=== PATIENT | male | born 1955 | race Caucasian/White ===

== ENCOUNTER 2023-03-22 08:15 | Outpatient (RCR) | payer MEDICARE, BC, SELFPAY | END 2023-07-20 23:59 | disposition home or self-care (01) | PROVIDERS: PCP Family Medicine; Visit Provider Family Medicine | DX: M48.061 Spinal stenosis, lumbar region without neurogenic claudication (principal); R26.9 Unspecified abnormalities of gait and mobility; G47.9 Sleep disorder, unspecified; Z74.09 Other reduced mobility; M62.81 Muscle weakness (generalized); Z51.89 Encounter for other specified aftercare | CPT/HCPCS: 97032; 97110; 97162 ==

== ENCOUNTER 2023-04-16 09:56 | Outpatient (CLI) | payer MEDICARE, BC, SELFPAY | END 2023-04-16 09:57 | disposition home or self-care (01) | PROVIDERS: PCP Family Medicine; Visit Provider Family Medicine | DX: M54.16 Radiculopathy, lumbar region (principal); M51.36 Other intervertebral disc degeneration, lumbar region | CPT/HCPCS: 62323; J0702; Q9966 ==

== ENCOUNTER 2023-05-26 07:27 | Emergency (ER) | payer MEDICARE, BC, SELFPAY ==
[2023-05-26] VITALS (32 sets, daily range): BP systolic 122–161; BP diastolic 74–97; PULSE 96–112; RESP 28; TEMP 36.7; O2SAT 88–98; BMI 31.1
[2023-05-26] MEDS: fentaNYL 100 MCG/2 ML inj 50 MCG IVP (08:30)
--- NOTE | 2023-05-26 08:32 | ED.NURSE ---
0825 #20 SL started L AC, blood drawn off iv. 50 mcg fentanyl iv given.
[2023-05-26] MEDS: ONDANSETRON 2 MG/ML inj 4 MG IVP (08:40)
--- NOTE | 2023-05-26 08:46 | CRLHL7_ITS ---
For Patients: As a result of the Century Cures Act, medical imaging exams and procedure reports are released immediately into your electronic medical record. You may view this report before your referring provider. If you have questions, please contact your health care provider. INDICATION: Shortness of breath. Left chest pain. FINDINGS: PA and lateral chest x-rays show a normal cardiac silhouette. The lungs are somewhat hypoventilated and show mild interstitial prominence. Mild bibasilar atelectasis. Probable small left-sided pleural effusion. No pneumothorax. Stabilization hardware in the lower cervical spine. IMPRESSION: 1. Mild interstitial prominence may represent pulmonary edema. 2. Probable small left-sided pleural effusion. Dictated by Quincy Rivera MD @ 05/26/2023 9:15:36 AM Dictated by: Quincy Rivera MD @ 05/26/2023 09:15:42 (Electronically Signed)
[2023-05-26 08:54] LABS: PCR FLU A Negative PCR FLU A (Negative); PCR FLU B Negative PCR FLU B (Negative); PCR RSV Negative PCR RSV (Negative)
[2023-05-26 08:55] LABS: SARS PCR* Negative SARS-CoV-2 (Negative)
--- NOTE | 2023-05-26 08:55 | ED.GENADULT ---
HPI - General Adult General Date Seen: 05/26/23 Chief complaint: Shortness of Breath/Dyspnea Stated complaint: difficulty breathing Time Seen by Provider: 05/26/23 08:01 History of Present Illness HPI narrative: This is a 67-year-old gentleman who presents to the ER today for shortness of breath and flare of his chronic back pain. He has a past medical history including bilateral ulnar nerve neuropathy, low back pain apparently due to lumbar disc compression. He has had trouble with his back pain for the past several months and has been were thing with an orthopedic spine surgeon. He has had what sounds like an epidural steroid injection which was ineffective so he has an upcoming appointment it sounds like they are going down the road to operative intervention. He has been managing his back pain over the past several months with meds at home. He does not have any recent fall or any specific injury that would make his back pleura. It has been flaring for the past few days. The pain is mostly in his lumbar spine. Does not radiate down his legs. No disturbance of bowel or bladder. His back hurts worse when he lays in bed so he has been sleeping sitting up in chair recently. He does not have any previous history of heart or lung disease. No history of asthma or COPD. He has never been a smoker. He notes that for the past couple of days he has been mildly short of breath and having dyspnea on exertion. He notes that normally he would be able to walk a mi or 2 without getting short of breath (but is back with her) but lately he thinks he may be able to walk a block or 2. Overnight his breathing got worse. He now also has some right anterolateral chest pain. He is not really coughing. No fever. No swelling in his legs. No palpitations. No nausea. No pain in the back of his chest. No recent travel. No peripheral edema. He is not on any anticoagulants. Related Data Home Medications Medication Instructions Recorded Confirmed atorvastatin 40 mg tablet 40 mg PO QPM 01/08/23 05/17/23 gabapentin 300 mg capsule 300 mg PO 3XD 01/08/23 05/17/23 insulin glargine 100 unit/mL (3 30 unit subcut QPM 01/08/23 05/17/23 mL) subcutaneous pen (Lantus Solostar U-100 Insulin) insulin lispro 100 unit/mL 6 - 8 unit subcut 3XD 01/08/23 05/17/23 subcutaneous pen metformin 500 mg tablet,extended 1,000 mg PO BID 01/08/23 05/17/23 release 24 hr semaglutide 0.25 mg or 0.5 mg (2 0.25 mg subcut 01/08/23 05/17/23 mg/3 mL) subcutaneous pen injector (Ozempic) oxycodone 5 mg tablet mg PO 05/17/23 05/17/23 Previous Rx's Medication Instructions Recorded cyclobenzaprine 5 mg tablet 5 - 10 mg (1 - 2 x 5 mg) PO TID 01/08/23 PRN muscle spasm #20 tabs tramadol 50 mg tablet 50 mg PO Q8H PRN pain #10 tabs 01/08/23 Allergies Allergy/AdvReac Type Severity Reaction Status Date / Time acetaminophen Allergy Mild Verified 05/17/23 09:34 [From Darvocet-N] oxycodone [From Percocet] Allergy Mild Verified 05/17/23 09:34 propoxyphene Allergy Mild Verified 05/17/23 09:34 [From Darvocet-N] bupropion [From Wellbutrin] Allergy Verified 05/17/23 09:34 [facility] Surgical History (Updated 05/17/23 @ 09:51 by Rosetta Stovall) Amputated toe of left foot ?S98.132A - Complete traumatic amputation of one left lesser toe, initial encounter (ICD-10) Cervical vertebral fusion ?M43.22 - Fusion of spine, cervical region (ICD-10) S/P right rotator cuff repair ?Z98.890 - Other specified postprocedural states (ICD-10) History of cholecystectomy ?Z90.49 - Acquired absence of other specified parts of digestive tract (ICD-10) History of appendectomy ?Z90.49 - Acquired absence of other specified parts of digestive tract (ICD-10) Gastric bypass status for obesity ?Z98.84 - Bariatric surgery status (ICD-10) Social History Smoking Status: Never smoker Do you use any of these nicotine containing products: None Second hand tobacco smoke exposure: No How often do you have a drink containing alcohol: 2-3 times a week How many standard drinks containing alcohol do you have on a typical day: 1 or 2 How often do you have six or more drinks on one occasion: Never AUDIT-C Alcohol total score: 3 Non-prescribed substance use: denies use Exam Narrative: Exam Narrative: Constitutional: Appears well-developed and well-nourished. Alert. Conversant. Non toxic. HENT: Head: Atraumatic. Nose: Nose normal. Mouth/Throat: Oral mucosa is clear and moist. no trismus. Pharynx normal. Tonsils symmetric. No tonsillar enlargement, erythema, or exudate. Eyes: Conjunctivae normal. EOM normal. Pupils equal, round, and reactive to light. No scleral icterus. Neck: Normal range of motion. Neck supple. No tracheal deviation present. Cardiovascular: Tachycardic-108 on the monitor (patient says his normal resting heart rate is around 100 beats per minute), regular rhythm. No gallop. No friction rub. No murmur heard. Symmetric radial and PT artery pulses Pulmonary/Chest: Effort normal. No stridor. No respiratory distress. Initially breathing fairly rapidly and shallowly but with coaching he is able to breathe more regularly. Nurses mention in the triage note that he was wheezy but once I calm his breathing, To my auscultation he has No wheezes. No rales. No rhonchi . No tenderness. Abdominal: Soft. Bowel sounds normal. No distension. No mass. No tenderness. No rebound. No guarding. Musculoskeletal: Endorses low back pain but no point tenderness or midline step-off. No bruising. No erythema. RUE: Normal range of motion. No tenderness. No deformity LUE: Normal range of motion. No tenderness. No deformity RLE: Normal range of motion. No edema. No tenderness. No deformity LLE: Normal range of motion. No edema. No tenderness. No deformity Neurological: Alert and oriented to person, place, and time. Normal strength. CN II-VII intact. No sensory deficit. GCS eye subscore is 4. GCS verbal subscore is 5. GCS motor subscore is 6. Normal coordination Skin: Skin is warm and dry. No rash noted. No pallor. Normal capillary refill. Psychiatric: Normal mood. Normal affect. Const: Vital Signs, click to edit/add: Vital Signs - 24 hr 05/26/23 07:43 05/26/23 08:04 05/26/23 08:05 Temperature 98.1 F Pulse Rate 108 H 108 H Pulse Rate [Pulse Oximeter] 112 H Respiratory Rate 28 H Blood Pressure 148/84 H Blood Pressure [Ri ght Upper Arm] 147/87 H Pulse Oximetry 90 92 95 Oxygen Delivery Me thod Room Air 05/26/23 08:30 05/26/23 08:32 05/26/23 08:33 Temperature Pulse Rate 106 H 107 H 107 H Pulse Rate [Pulse Oximeter] Respiratory Rate Blood Pressure 146/89 H Blood Pressure [Ri ght Upper Arm] Pulse Oximetry 93 90 90 Oxygen Delivery Me thod 05/26/23 09:00 05/26/23 09:02 05/26/23 09:03 Temperature Pulse Rate 109 H 108 H 107 H Pulse Rate [Pulse Oximeter] Respiratory Rate Blood Pressure 136/84 Blood Pressure [Ri ght Upper Arm] Pulse Oximetry 91 92 92 Oxygen Delivery Me thod 05/26/23 09:30 05/26/23 10:00 05/26/23 10:02 Temperature Pulse Rate 106 H 108 H 107 H Pulse Rate [Pulse Oximeter] Respiratory Rate Blood Pressure 156/95 H Blood Pressure [Ri ght Upper Arm] Pulse Oximetry 92 89 88 Oxygen Delivery Me thod 05/26/23 10:11 05/26/23 10:13 05/26/23 10:20 Temperature Pulse Rate 108 H 108 H 107 H Pulse Rate [Pulse Oximeter] Respiratory Rate Blood Pressure 161/97 H 144/91 H 130/74 Blood Pressure [Ri ght Upper Arm] Pulse Oximetry 93 92 89 Oxygen Delivery Me thod 05/26/23 10:21 05/26/23 10:46 05/26/23 11:00 Temperature Pulse Rate 107 H 102 H 99 Pulse Rate [Pulse Oximeter] Respiratory Rate Blood Pressure Blood Pressure [Ri ght Upper Arm] Pulse Oximetry 90 95 96 Oxygen Delivery Me thod 05/26/23 11:01 05/26/23 11:02 05/26/23 11:30 Temperature Pulse Rate 100 100 96 Pulse Rate [Pulse Oximeter] Respiratory Rate Blood Pressure 122/80 Blood Pressure [Ri ght Upper Arm] Pulse Oximetry 95 96 98 Oxygen Delivery Me thod 05/26/23 11:32 05/26/23 12:00 05/26/23 12:02 Temperature Pulse Rate 96 98 98 Pulse Rate [Pulse Oximeter] Respiratory Rate Blood Pressure 133/86 132/87 Blood Pressure [Ri ght Upper Arm] Pulse Oximetry 97 96 97 Oxygen Delivery Me thod Course Vital Signs Vital signs: Initial Vital Signs Temperature 98.1 F 05/26/23 07:43 Temperature Source Temporal Artery Scan 05/26/23 07:43 Pulse Rate 112 H 05/26/23 07:43 Respiratory Rate 28 H 05/26/23 07:43 Blood Pressure 147/87 H 05/26/23 07:43 Blood Pressure Mean 107 H 05/26/23 07:43 Blood Pressure Position Supine 05/26/23 07:43 Pulse Oximetry 90 05/26/23 07:43 Oxygen Delivery Method Room Air 05/26/23 07:43 Vital Signs Temperature 98.1 F 05/26/23 07:43 Pulse Rate 112 H 05/26/23 07:43 Respiratory Rate 28 H 05/26/23 07:43 Blood Pressure 147/87 H 05/26/23 07:43 Pulse Oximetry 90 05/26/23 07:43 Oxygen Delivery Method Room Air 05/26/23 07:43 Temperature 98.1 F 05/26/23 07:43 Pulse Rate 98 05/26/23 12:02 Respiratory Rate 28 H 05/26/23 07:43 Blood Pressure 132/87 05/26/23 12:02 Pulse Oximetry 97 05/26/23 12:02 Oxygen Delivery Method Room Air 05/26/23 07:43 Medical Decision Making MDM Narrative Medical decision making narrative: This patient presents to the ER today for evaluation of shortness of breath for the past several days, with dyspnea on exertion, now worsening shortness breath over night and also developing anterior chest pain overnight.. Differential was broad. He does have some ongoing trouble with low back pain. This has been flaring for the past few days but is not clearly contributing to shortness of breath No evidence of palpitations, syncope or other cardiac dysrhythmia. History could be consistent with CHF although he has no history of coronary artery disease, structural heart disease, valvular disease, or CHF. No peripheral edema. BNP is elevated at 987 a chest x-ray does show mild pulmonary edema and small pleural effusions which could be CHF. Blood pressure is essentially normal. We considered possible ACS. No classic history of exertional chest pain suggest clear unstable angina. He was having minimal/equivocal pain at the time he presented. Initial EKG showed nonspecific changes with T-wave inversions in the inferior leads but no elevation. Serial EKGs here in the ER showed no definite evolving changes. He also has a right bundle-branch block of unknown chronicity. Troponin is abnormal at 0.12. Unclear if this represents true NSTEMI or if it represents cardiac strain from CHF. Aspirin administered. Second troponin obtained 2 hours after the 1st reveals stability at 0.12. This is stable troponin would suggest this is probably due to cardiac strain from CHF rather than acute ACS. Will hold off on heparin for now. He did have recurrent episode of chest pain while here in the ER which resolved after 2 nitro. EKGs show no definite involving changes. Serial troponins are abnormal but not rising. CT scan of his aorta does show coronary artery calcifications. While the patient was here in the ER he did develop a recurrent episode of chest discomfort and pain through to his thoracic back. This led to consideration for aortic dissection. CT scan confirms no dissection. Does confirm pulmonary edema and pleural effusions consistent with CHF. Chest x-ray shows no evidence for pneumonia, pneumothorax, rib fracture, cardiomegaly. We considered PE for this patient. Screening D-dimer is normal. No wheezing or bronchospasm to suggest COPD/asthma. No signs of chest wall cellulitis, shingles, injury. Discussed with Cardiology, Dr. Lewis from [facility]. He agrees that the patient would benefit from transfer to their facility for workup for presumed new onset CHF. Lab Data Labs: Lab Results 05/26/23 05/26/23 05/26/23 Range/Units 07:49 08:25 09:15 WBC 5.08 (4.50-11.00) K/uL RBC 4.31 (4.30-5.90) m/uL Hgb 10.3 L (13.5-17.5) gm/dL Hct 34.8 L (37.0-53.0) % MCV 81 (80-100) fL MCH 24 L (26-34) pg MCHC 30 L (32-36) gm/dL RDW Coeff of Lou 13.1 (11.5-15.5) % Plt Count 176 (140-440) K/uL Neut % (Auto) 69.0 (42.0-72.0) % Lymph % (Auto) 20.9 (20-44) % [place] % (Auto) 6.9 (0.0-11.0) % Eos % (Auto) 2.2 (0.0-7.0) % Baso % (Auto) 0.2 (0.0-3.0) % Neut # (Auto) 3.51 (1.7-7.0) K/uL Lymph # (Auto) 1.06 (0.90-2.90) K/uL [place] # (Auto) 0.40 (0.00-0.90) K/UL Eos # (Auto) 0.11 (0.00-0.50) K/uL Baso # (Auto) 0.01 (0.00-0.30) K/uL Abs Immat Gran (auto) 0.04 (0.00-0.30) K/uL Imm/Tot Granulo (auto) 0.8 % D-Dimer Quant (PE/DVT) 0.33 (0.00-0.50) ug/ml Sodium 138 (135-149) mmol/L Potassium 3.9 (3.6-5.1) mmol/L Chloride 104 (96-114) mmol/L Carbon Dioxide 23 (20-32) mmol/L Anion Gap 11 (7-15) mEq/L BUN 27 (7-30) mg/dL Creatinine 1.2 (0.5-1.5) mg/dL Estimated Creat Clear 70.40 Estimated GFR 67 ml/min Glucose 196 H (60-115) mg/dL Lactate 0.9 (0.5-1.9) mmol/L Calcium 8.2 L (8.4-10.6) mg/dL Troponin I 0.12 H* (0.01-0.04) ng/mL NT-Pro-B Natriuret Pep 987 pg/mL SARS-CoV-2 (PCR) Negative SARS-CoV-2 (Negative) Influenza Type A (PCR) Negative PCR FLU A (Negative) Influenza Type B (PCR) Negative PCR FLU B (Negative) RSV (PCR) Negative PCR RSV (Negative) 05/26/23 Range/Units 10:47 WBC (4.50-11.00) K/uL RBC (4.30-5.90) m/uL Hgb (13.5-17.5) gm/dL Hct (37.0-53.0) % MCV (80-100) fL MCH (26-34) pg MCHC (32-36) gm/dL RDW Coeff of Lou (11.5-15.5) % Plt Count (140-440) K/uL Neut % (Auto) (42.0-72.0) % Lymph % (Auto) (20-44) % [place] % (Auto) (0.0-11.0) % Eos % (Auto) (0.0-7.0) % Baso % (Auto) (0.0-3.0) % Neut # (Auto) (1.7-7.0) K/uL Lymph # (Auto) (0.90-2.90) K/uL [place] # (Auto) (0.00-0.90) K/UL Eos # (Auto) (0.00-0.50) K/uL Baso # (Auto) (0.00-0.30) K/uL Abs Immat Gran (auto) (0.00-0.30) K/uL Imm/Tot Granulo (auto) % D-Dimer Quant (PE/DVT) (0.00-0.50) ug/ml Sodium (135-149) mmol/L Potassium (3.6-5.1) mmol/L Chloride (96-114) mmol/L Carbon Dioxide (20-32) mmol/L Anion Gap (7-15) mEq/L BUN (7-30) mg/dL Creatinine (0.5-1.5) mg/dL Estimated Creat Clear Estimated GFR ml/min Glucose (60-115) mg/dL Lactate (0.5-1.9) mmol/L Calcium (8.4-10.6) mg/dL Troponin I 0.12 H* (0.01-0.04) ng/mL NT-Pro-B Natriuret Pep pg/mL SARS-CoV-2 (PCR) (Negative) Influenza Type A (PCR) (Negative) Influenza Type B (PCR) (Negative) RSV (PCR) (Negative) Imaging Data Chest x-ray: Attestation: I have reviewed the pertinent imaging results. Radiologist's impression: IMPRESSION: 1. Mild interstitial prominence may represent pulmonary edema. 2. Probable small left-sided pleural effusion. CT Chest/Ab/Pelvis: Attestation: I have reviewed the pertinent imaging results. Radiologist's impression: IMPRESSION: 1. No intramural hematoma in the thoracic aorta, and no aortic aneurysm or dissection. 2. Small to moderate-sized bilateral pleural effusions. 3. Interlobular septal thickening, and patchy perihilar ground-glass opacity nonspecific but most likely due to pulmonary edema. Differential includes atypical infection but given the associated pleural effusions less likely. 4. Severe coronary artery calcification. ECG Data Attestation: I personally reviewed and interpreted this ECG as follows: Interpretation: Sinus tach, rate 108. DC 232. First-degree AV block QRS axis normal axis. Right bundle-branch block ST segment/T wave: Is T-wave inversions in leads 2, 3, AVF. No definite ST segment elevation. QT is 472. Calculated QTC is 632 No old EKGs are available for comparison EKG #2.-9:45 a.m. Sinus tachycardia. Rate 105. DC interval 192. QRS axis is normal. Right bundle-branch block. No pathologic Q-waves. ST segment/T-wave: No ST segment elevation or depression. T-wave inversion lead 2, 3, AVF, V6. No definite change from 1st EKG this morning QT: 472 EKG #3 1015AM. had recurrent chest pain, now upper back pain Sinus tach 107 DC 192 RBBB. normal axis T wave inversions II, III aVF with no definite change from number 2 Discharge Plan Discharge Prescriptions: No Action oxycodone 5 mg tablet PO atorvastatin 40 mg tablet 40 mg PO QPM gabapentin 300 mg capsule 300 mg PO 3XD metformin 500 mg tablet extended release 24 hr 1,000 mg PO BID insulin lispro 100 unit/mL insulin pen 6 - 8 unit subcut 3XD insulin glargine [Lantus Solostar U-100 Insulin] 100 unit/mL (3 mL) insulin pen 30 unit subcut QPM Ozempic 0.25 mg or 0.5 mg (2 mg/3 mL) pen injector 0.25 mg subcut cyclobenzaprine 5 mg tablet 5 - 10 mg PO TID PRN (Reason: muscle spasm) Qty: 20 0RF tramadol 50 mg tablet 50 mg PO Q8H PRN (Reason: pain) Qty: 10 0RF Follow Up/Referrals: Hegland,Lakesha I, MD [Primary Care Provider] -
[2023-05-26 09:03] LABS: Basophils Absolute Auto 0.01 K/uL (0.00-0.30); Basophils Percent Auto 0.2 % (0.0-3.0); Eosinophils Absolute Auto 0.11 K/uL (0.00-0.50); Eosinophils Percent Auto 2.2 % (0.0-7.0); Hematocrit 34.8 % (37.0-53.0); Hemoglobin* 10.3 gm/dL (13.5-17.5); Immature Granulocytes Abs Auto 0.04 K/uL (0.00-0.30); Immature Granulocytes Pct Auto 0.8 %; Lymphocytes Absolute Auto 1.06 K/uL (0.90-2.90); Lymphocytes Percent Auto 20.9 % (20-44); Mean Corpuscular HGB Conc 30 gm/dL (32-36); Mean Corpuscular Hemoglobin 24 pg (26-34); Mean Corpuscular Volume 81 fL (80-100); Monocytes Percent Auto 6.9 % (0.0-11.0); Neutrophils Absolute Auto 3.51 K/uL (1.7-7.0); Platelet Count* 176 K/uL (140-440); RDW Coefficient of Variation % 13.1 % (11.5-15.5); Red Blood Count 4.31 m/uL (4.30-5.90); Slide Review Reflex No; White Blood Count* 5.08 K/uL (4.50-11.00)
[2023-05-26] MEDS: 0.9 % SODIUM CHLORIDE 1000 ml 1,000 ML IV (09:07)
[2023-05-26] MEDS: ASPIRIN 81 MG TAB.CHEW 162 MG PO (09:07)
[2023-05-26 09:20] LABS: Chloride* 104 mmol/L (96-114); Potassium* 3.9 mmol/L (3.6-5.1); Sodium* 138 mmol/L (135-149)
[2023-05-26 09:22] LABS: Creatinine* 1.2 mg/dL (0.5-1.5); Estimated Glomerular Filt Rate 67 ml/min
[2023-05-26 09:23] LABS: Anion Gap 11 mEq/L (7-15); Blood Urea Nitrogen* 27 mg/dL (7-30); Calcium* 8.2 mg/dL (8.4-10.6); Carbon Dioxide* 23 mmol/L (20-32); Glucose* 196 mg/dL (60-115)
[2023-05-26 09:25] LABS: Lactate* 0.9 mmol/L (0.5-1.9)
[2023-05-26 09:31] LABS: D Dimer Quantitative* 0.33 ug/ml (0.00-0.50)
[2023-05-26 09:40] LABS: NT Pro B Type NatriureticPept* 987 pg/mL; Troponin I* 0.12 ng/mL (0.01-0.04)
--- NOTE | 2023-05-26 09:40 | ED.NURSE ---
lab called with critical troponin 0.12
[2023-05-26] MEDS: NITROGLYCERIN 0.4 MG TAB.SUBL SUBLINGUAL ×2 (10:07→10:13)
--- NOTE | 2023-05-26 10:13 | CRLHL7_ITS ---
For Patients: As a result of the 21st Century Cures Act, medical imaging exams and procedure reports are released immediately into your electronic medical record. You may view this report before your referring provider. If you have questions, please contact your health care provider. INDICATION: Chest and back pain. COMPARISON: None available. TECHNIQUE: Noncontrast CT of the chest, and CT of the chest, abdomen, and pelvis. At the request of the ordering physician, 3-D reconstructed images were created on an independent workstation for enhanced visualization of anatomy and pathology. 95 cc of Isovue administered intravenously. FINDINGS: No thoracic aortic aneurysm. No thoracic and aortic intramural hematoma. Severe coronary artery calcification. Trivial/small pericardial effusion. Small to moderate bilateral pleural effusions. Gastric bypass change. Too much motion at the aortic root and ascending thoracic aorta to evaluate/exclude for dissection, however no obvious dissection seen and there is no dissection in the transverse or descending thoracic aorta. Mild atherosclerotic disease. No abdominal aortic aneurysm/dissection. Patent iliac and visualized femoral arteries. Patent celiac artery, SMA. Patent DAIN. Patent bilateral renal arteries. No obvious abnormality in the thyroid or neck base. No axillary lymphadenopathy. Compressive atelectasis associated with the pleural effusions bilaterally. Additionally, there is interlobular septal thickening which appears smooth, apical predominant and lower lobe predominant. Minor perihilar ground-glass opacity as well. Peribronchial tissues appears somewhat thickened. The central airways are patent. Prominent mediastinal and hilar lymph nodes but no obvious lymph node enlargement. ACDF changes seen in the lower cervical spine. Inadequately opacified pulmonary arteries appear normal in size. Arterial phase imaging limits evaluation of solid organs and bowel in the abdomen and pelvis. No splenomegaly. Bilateral renal cysts. Symmetric enhancement of the kidneys. No hydronephrosis. Cholecystectomy change. Noncirrhotic liver morphology. No obvious suspicious liver lesion. No obvious abnormality involving the urinary bladder, and prostate. No bowel obstruction. Mild stranding along a scar in the right lower quadrant and focal subcutaneous thickening in the left lower quadrant on image 326, series 6; correlate clinically. Tiny umbilical fat containing hernia. Pancreas and adrenal glands appear unremarkable. No aggressive appearing osseous lesion. IMPRESSION: 1. No intramural hematoma in the thoracic aorta, and no aortic aneurysm or dissection. 2. Small to moderate-sized bilateral pleural effusions. 3. Interlobular septal thickening, and patchy perihilar ground-glass opacity nonspecific but most likely due to pulmonary edema. Differential includes atypical infection but given the associated pleural effusions less likely. 4. Severe coronary artery calcification. Please note that all CT scans at this facility use dose modulation, iterative reconstruction, and/or weight-based dosing when appropriate to reduce radiation dose to as low as reasonably achievable. Dictated by Nickolas Escobar MD @ 05/26/2023 11:30:26 AM (Electronically Signed)
--- NOTE | 2023-05-26 10:27 | ED.NURSE ---
pt called out with sudden cp. dr. song came into room. pt given 1st ntg at 1007, ekg done, 2nd iv started R ac. pt starting to feel better, still has some pain. 2nd ntg given at 1013. 1014 pt painfree. pt very tearful and emotional. at bedside comforting pt.
--- NOTE | 2023-05-26 10:56 | ED.NURSE ---
report given to L[facility] at [facility]
[2023-05-26 11:34] LABS: Troponin I* 0.12 ng/mL (0.01-0.04)
--- NOTE | 2023-05-26 12:36 | ED.NURSE ---
pt had another episode of chest heaviness and sob, ekg repeated. 1 ntg given with relief. waiting for ems to transfer pt to [facility].
[2023-05-26] MEDS: FUROSEMIDE 10 MG/ML inj 40 MG IVP (12:44)
[2023-05-26] MEDS: HEPARIN 25,000 UNIT/500 ML BAG 20 UNIT IV (12:48)
[2023-05-26] MEDS: HEPARIN 5,000 UNIT/0.5 ML INJ 4000 UNIT IVP (12:49)
--- NOTE | 2023-05-26 13:06 | ED.NURSE ---
Report given to [facility], pt will transfer via [facility] to [facility].
[2023-05-26 14:30] LABS: INR 1.03 (0.91-1.10); Prothrombin Time 14.1 Seconds
[2023-05-26 14:31] LABS: Partial Thromboplastin Time* 31 Seconds (23-33)
== END 2023-05-26 13:18 | disposition short-term general hospital (02) ==
LOC: ED 09:29
PROVIDERS: Emergency Provider Emergency Medicine; PCP Family Medicine
DX: R07.9 Chest pain, unspecified (principal)
CPT/HCPCS: 36415; 71046; 71275; 74174; 80048; 83605; 83880; 84484; 85025; 85379; 85610; 85730; 87040; 87631; 93005; 96374; 96375; 99284; 99285; A9270; J1644; J1940; J2405; J3010; J7030; Q9967

== ENCOUNTER 2023-05-26 13:21 | Outpatient (CLI) | payer MEDICARE, BC, SELFPAY | END 2023-05-26 13:22 | disposition home or self-care (01) | LOC: AMB 05-28 10:26 | PROVIDERS: PCP Family Medicine; Visit Provider Emergency Medicine | DX: I21.4 Non-ST elevation (NSTEMI) myocardial infarction (principal) | CPT/HCPCS: A0425; A0434 ==

== ENCOUNTER 2023-07-26 13:21 | Emergency (ER) | payer MEDICARE, BC, SELFPAY ==
[2023-07-26] VITALS (26 sets, daily range): BP systolic 81–134; BP diastolic 51–108; PULSE 70–99; RESP 16; TEMP 36.7; O2SAT 92–97; BMI 31.5
--- NOTE | 2023-07-26 13:36 | ED.GENADULT ---
HPI - General Adult General Time Seen by Provider: 13:30 Date Seen: 07/26/23 Chief complaint: Chest Pain Stated complaint: Chest pain Time Seen by Provider: 07/26/23 13:36 Source: patient, family ( present) and RN notes reviewed Mode of arrival: ambulatory Limitations: no limitations History of Present Illness HPI narrative: Dale is a 67-year-old male coming in with right-sided chest pain that he states started just maybe about an hour ago while sitting watching the [employer] channel, he was watching a movie. He describes it is right chest, there may be a pleuritic component. When I was in assessing him in talking to him, cried out that he was having some sharp pain. This then seemed to settle down. He denies any GI symptoms with this. He has had no cough or cold symptoms. He does states that he had a stent placed maybe 15 years ago. He recently was transferred from our facility, maybe about 6 weeks ago, and they state that he had testing up there, maybe an angiogram. They state that he was told that he had congestive heart failure. He talked to his nurse practitioner this morning, they are decreasing his metoprolol does but he did take his normal dose this morning. Patient did take his baby aspirin this morning. He is also diabetic. Related Data Home Medications Medication Instructions Recorded Confirmed atorvastatin 40 mg tablet 40 mg PO QPM 01/08/23 05/17/23 gabapentin 300 mg capsule 300 mg PO 3XD 01/08/23 05/17/23 insulin glargine 100 unit/mL (3 30 unit subcut QPM 01/08/23 05/17/23 mL) subcutaneous pen (Lantus Solostar U-100 Insulin) insulin lispro 100 unit/mL 6 - 8 unit subcut 3XD 01/08/23 05/17/23 subcutaneous pen metformin 500 mg tablet,extended 1,000 mg PO BID 01/08/23 05/17/23 release 24 hr semaglutide 0.25 mg or 0.5 mg (2 0.25 mg subcut 01/08/23 05/17/23 mg/3 mL) subcutaneous pen injector (Ozempic) oxycodone 5 mg tablet mg PO 05/17/23 05/17/23 Previous Rx's Medication Instructions Recorded cyclobenzaprine 5 mg tablet 5 - 10 mg (1 - 2 x 5 mg) PO TID 01/08/23 PRN muscle spasm #20 tabs tramadol 50 mg tablet 50 mg PO Q8H PRN pain #10 tabs 01/08/23 Allergies Allergy/AdvReac Type Severity Reaction Status Date / Time acetaminophen Allergy Mild Verified 05/17/23 09:34 [From Darvocet-N] oxycodone [From Percocet] Allergy Mild Verified 07/26/23 13:47 propoxyphene Allergy Mild Verified 05/17/23 09:34 [From Darvocet-N] bupropion [From Wellbutrin] Allergy Verified 07/26/23 13:47 Review of Systems Status of ROS: Reports: 6 or more systems reviewed and unremarkable except as noted in History and below PFSH PFS Surgical History Amputated toe of left foot ?S98.132A - Complete traumatic amputation of one left lesser toe, initial encounter (ICD-10) Cervical vertebral fusion ?M43.22 - Fusion of spine, cervical region (ICD-10) S/P right rotator cuff repair ?Z98.890 - Other specified postprocedural states (ICD-10) History of cholecystectomy ?Z90.49 - Acquired absence of other specified parts of digestive tract (ICD-10) History of appendectomy ?Z90.49 - Acquired absence of other specified parts of digestive tract (ICD-10) Gastric bypass status for obesity ?Z98.84 - Bariatric surgery status (ICD-10) Social History Smoking Status: Never smoker Do you use any of these nicotine containing products: None Second hand tobacco smoke exposure: No How often do you have a drink containing alcohol: 2-3 times a week How many standard drinks containing alcohol do you have on a typical day: 1 or 2 How often do you have six or more drinks on one occasion: Never AUDIT-C Alcohol total score: 3 Non-prescribed substance use: denies use Exam Const: Vital Signs, click to edit/add: Vital Signs - 24 hr 07/26/23 13:36 07/26/23 13:37 07/26/23 13:39 Temperature 98.1 F Pulse Rate 95 94 Pulse Rate [Pulse Oximeter] 95 Respiratory Rate 16 Blood Pressure 130/108 H Blood Pressure [Le ft Upper Arm] 130/108 H Pulse Oximetry 96 97 95 Oxygen Delivery Me thod Room Air 07/26/23 13:45 07/26/23 13:47 07/26/23 13:51 Temperature Pulse Rate 94 97 84 Pulse Rate [Pulse Oximeter] Respiratory Rate Blood Pressure 134/69 81/53 L Blood Pressure [Le ft Upper Arm] Pulse Oximetry 93 94 93 Oxygen Delivery Me thod 07/26/23 13:52 07/26/23 14:00 07/26/23 14:03 Temperature Pulse Rate 99 89 88 Pulse Rate [Pulse Oximeter] Respiratory Rate Blood Pressure 103/63 Blood Pressure [Le ft Upper Arm] Pulse Oximetry 92 93 94 Oxygen Delivery Me thod 07/26/23 14:15 07/26/23 14:17 07/26/23 14:18 Temperature Pulse Rate 87 92 77 Pulse Rate [Pulse Oximeter] Respiratory Rate Blood Pressure 101/51 L Blood Pressure [Le ft Upper Arm] Pulse Oximetry 94 94 93 Oxygen Delivery Me thod 07/26/23 14:30 07/26/23 14:31 Temperature Pulse Rate 96 93 Pulse Rate [Pulse Oximeter] Respiratory Rate Blood Pressure 114/61 Blood Pressure [Le ft Upper Arm] Pulse Oximetry 92 95 Oxygen Delivery Me thod Dale is a 67-year-old male that is alert, interactive, no apparent distress. He does seem mildly anxious. He is able to speak in complete sentences. Pupils equal round reactive to light, sclera clear, symmetrical facial function. Neck is supple, do not appreciate jugular venous tension, no cervical adenopathy no thyromegaly masses or nodules. Lungs are clear, good air entry, no wheezing or crackles. CV regular, no murmur, normal S1-S2, no S3-S4. No reproducible chest wall pain. Abdomen is mildly obese but soft, nontender, nondistended, no organomegaly. He has no lower extremity edema, missing the 1st left toe from amputation. Moving upper extremities equally. Documenting provider has reviewed patient's vital signs: yes Course Course ED Course: Patient obviously needs to be considered for acute coronary syndrome, AR. Initial EKG is not showing a STEMI. Other considerations are pleuritic or lung pathology, atypical presentation of pneumonia or infectious etiology. Referred pain from GI. Thromboembolic disease is always possible but this sharp type of chest pain is not typical of what I see of it. Eleven full complement of labs, be on cardiac monitoring, pulse oximetry. Will get a portable chest x-ray. Reevaluation(s) Time of Reevaluation #1: 13:43 Reevaluation #1: Nursing staff notified me that the point of care troponin is 0.32. Will confirm with the laboratory troponin, have patient receive sublingual nitroglycerin at this time. Time of Reevaluation #2: 13:56 Reevaluation #2: ED staff notified me that the patient was complaining of increasing pain. He stated that it had moved over to the left. It subsequently did resolve and just some mild ongoing right-sided symptoms. There is maybe a component of pleuritic change with this. He did take his 81 mg aspirin this morning. Will give him 162 mg aspirin now, he declines any morphine. His subsequent point of care is back at 0.27, initial point of care is 0.31. His troponin I was 0.12 last time he was here and that was 05/26/2023. Do have troponin I in the lab pending. I will check back with this patient. He did become hypotensive and lightheaded with the nitroglycerin but reportedly the chest pain was there before the nitroglycerin was given. We will give him a small bolus of IV fluids 250 mL. Consultations Consultation #1: Did speak with Dr. Hopper the cardiologists at [facility]. Patient had a stent in 2011. He did not have an angiogram or angiography done when he was in the hospital in May. 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 Given patient's current symptoms in his troponin, he is requesting that patient be brought up. I reviewed with him that the patient had aspirin, we tried sublingual nitroglycerin. Did review with him that if patient is still having some mild pain, will try some morphine, consider nitroglycerin drip if blood pressure tolerates any continues with pain. He has requested that we do ACS heparin, both load and drip. Will get this ordered. I have let nursing staff as well as patient and his know the plan. They are in agreement for transfer to [facility] for further cardiology cares. 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 Time: 14:31 Vital Signs Vital signs: Initial Vital Signs Pulse Rate 95 07/26/23 13:36 Pulse Oximetry 96 07/26/23 13:36 Vital Signs Pulse Rate 95 07/26/23 13:36 Pulse Oximetry 96 07/26/23 13:36 Temperature 98.1 F 07/26/23 13:39 Pulse Rate 93 07/26/23 14:31 Respiratory Rate 16 07/26/23 13:39 Blood Pressure 114/61 07/26/23 14:31 Pulse Oximetry 95 07/26/23 14:31 Oxygen Delivery Method Room Air 07/26/23 13:39 Medications Administered Medications: Generic Name Dose Route Start Last Admin Trade Name Freq PRN Reason Stop Dose Admin Heparin Sodium/Dextrose 25,000 unit in 500 mls @ 0 mls/hr 07/26/23 14:45 07/26/23 14:52 Heparin IV 1,000 unit/hr .Q0M GIOVANNI 20 mls/hr Administration Protocol Per Protocol Nitroglycerin 0.4 mg 07/26/23 13:42 07/26/23 13:45 Nitroglycerin 0.4 Mg Tab.Subl SUBLINGUAL 0.4 mg Q5M PRN Administration Discontinued Medications Generic Name Dose Route Start Last Admin Trade Name Freq PRN Reason Stop Dose Admin Aspirin 162 mg 07/26/23 14:03 07/26/23 14:11 Aspirin 81 Mg Tab.Chew PO 07/26/23 14:04 162 mg ONCE ONE Administration Heparin Sodium (Porcine) 4,000 unit 07/26/23 14:36 07/26/23 14:50 Heparin 5,000 Unit/0.5 Ml Inj IVP 07/26/23 14:37 4,000 unit ONCE ONE Administration Sodium Chloride 250 mls @ 250 mls/hr 07/26/23 14:03 07/26/23 14:20 0.9 % Sodium Chloride 250 Ml IV 07/26/23 15:02 Infused .Q1H ONE Infusion Morphine Sulfate 2 mg 07/26/23 15:18 07/26/23 15:42 Morphine 2 Mg/Ml Inj IVP 07/26/23 15:19 2 mg ONCE ONE Administration Ondansetron HCl 4 mg 07/26/23 15:19 07/26/23 15:42 Ondansetron 2 Mg/Ml Inj IVP 07/26/23 15:20 4 mg ONCE ONE Administration Medical Decision Making Lab Data Lab results reviewed: Yes I reviewed the patient's lab results Lab results narrative: CBC, PT, PTT pending. Labs: Lab Results 07/26/23 07/26/23 07/26/23 Range/Units 13:42 13:51 13:56 D-Dimer Quant (PE/DVT) 0.36 (0.00-0.50) ug/ml VBG pH 7.401 (7.32-7.43) VBG pCO2 37 L (40-50) mmHG VBG pO2 50.5 H (25-47) mmHG VBG HCO3 23 (21-28) mmol/L Sodium 138 (135-149) mmol/L Potassium 4.3 (3.6-5.1) mmol/L Chloride 110 (96-114) mmol/L Carbon Dioxide 19 L (20-32) mmol/L Anion Gap 9 (7-15) mEq/L BUN 27 (7-30) mg/dL Creatinine 1.2 (0.5-1.5) mg/dL Estimated Creat Clear 70.40 Estimated GFR 67 ml/min Glucose 197 H (60-115) mg/dL Calcium 8.7 (8.4-10.6) mg/dL Magnesium 1.8 (1.5-2.6) mg/dL Total Bilirubin 1.0 (0.1-1.5) mg/dL AST 47 H (12-35) U/L ALT 52 H (4-50) U/L Alkaline Phosphatase 28 L (40-150) U/L Troponin I 0.35 H* (0.01-0.04) ng/mL C-Reactive Protein 0.5 (0.5-1.0) mg/dL NT-Pro-B Natriuret Pep 772 pg/mL Total Protein 7.1 (6.0-8.3) g/dL Albumin 4.1 (3.3-5.0) g/dL POC Troponin I 0.32 H 0.27 H (0.01-0.04) ng/ml Imaging Data Chest x-ray: Attestation: I have reviewed the pertinent imaging results. Radiologist's impression: Patient: DALE REYNAGA Facility:?[facility] Patient ID:?[id number] Site Patient ID:?[id number]. Site :?[id number] Study:?XRay Chest PORTABLE 1 VIEW-07/26/2023 2:06:17 PM Ordering Physician:Keisha Vogel Final Report: INDICATION: Chest pain COMPARISON: 05/26/2023 TECHNIQUE: 1 view chest radiograph. FINDINGS: Lung volumes are moderate. No focal consolidations. No pulmonary edema. No pleural effusion. No pneumothorax. No pneumomediastinum. Unchanged cardiomediastinal silhouette. Bones: Cervical spine fusion hardware. Multiple healed rib fractures. IMPRESSION: Lungs clear. Resolved pulmonary edema and effusion. Dictated by María Whitman MD @ 07/26/2023 3:13:40 PM (Electronic Signature) ECG Data Attestation: I personally reviewed and interpreted this ECG as follows: (Initial EKGs were done, showing sinus rhythm with PVC, 99-100. Right bundle branch block. He did have downsloping T-waves inferior leads, possible Q-waves.) Interpretation: Second EKG at 1:52 p.m. showed sinus tachycardia with PVC, rate 102 beats per minute. Right bundle branch block. Ongoing flipped T-waves inferiorly with Q-waves, some maybe nonspecific ST changes in the lateral precordial leads. Discharge Plan Discharge Clinical Impression: Non-STEMI (non-ST elevated myocardial infarction) Patient Disposition: Xfer [facility] Discharge Location: [facility] Condition: Stable Prescriptions: No Action oxycodone 5 mg tablet PO atorvastatin 40 mg tablet 40 mg PO QPM gabapentin 300 mg capsule 300 mg PO 3XD metformin 500 mg tablet extended release 24 hr 1,000 mg PO BID insulin lispro 100 unit/mL insulin pen 6 - 8 unit subcut 3XD insulin glargine [Lantus Solostar U-100 Insulin] 100 unit/mL (3 mL) insulin pen 30 unit subcut QPM Ozempic 0.25 mg or 0.5 mg (2 mg/3 mL) pen injector 0.25 mg subcut cyclobenzaprine 5 mg tablet 5 - 10 mg PO TID PRN (Reason: muscle spasm) Qty: 20 0RF tramadol 50 mg tablet 50 mg PO Q8H PRN (Reason: pain) Qty: 10 0RF Stand Alone Forms: [facility] Info Instructions
--- NOTE | 2023-07-26 13:41 | CRLHL7_ITS ---
For Patients: As a result of the Cures Act, medical imaging exams and procedure reports are released immediately into your electronic medical record. You may view this report before your referring provider. If you have questions, please contact your health care provider. INDICATION: Chest pain COMPARISON: 05/26/2023 TECHNIQUE: 1 view chest radiograph. FINDINGS: Lung volumes are moderate. No focal consolidations. No pulmonary edema. No pleural effusion. No pneumothorax. No pneumomediastinum. Unchanged cardiomediastinal silhouette. Bones: Cervical spine fusion hardware. Multiple healed rib fractures. IMPRESSION: Lungs clear. Resolved pulmonary edema and effusion. Dictated by María Whitman MD @ 07/26/2023 3:13:40 PM (Electronically Signed)
[2023-07-26] MEDS: NITROGLYCERIN 0.4 MG TAB.SUBL SUBLINGUAL (13:45)
[2023-07-26 13:46] LABS: Troponin, Point-of-Care* 0.32 ng/ml (0.01-0.04)
[2023-07-26 13:48] LABS: HCO3 VBG 23 mmol/L (21-28); PCO2 VBG 37 mmHG (40-50); PO2 VBG 50.5 mmHG (25-47); pH VBG 7.401 (7.32-7.43)
--- NOTE | 2023-07-26 13:51 | ED.NURSE ---
Increase in chest pain, MD updated. BP 81/53, holding second PRN nitro.
[2023-07-26 14:03] LABS: Troponin, Point-of-Care* 0.27 ng/ml (0.01-0.04)
[2023-07-26] MEDS: 0.9 % SODIUM CHLORIDE 250 ml 250 ML IV (14:03)
[2023-07-26 14:08] LABS: Albumin* 4.1 g/dL (3.3-5.0); Chloride* 110 mmol/L (96-114); Sodium* 138 mmol/L (135-149)
[2023-07-26 14:09] LABS: Potassium* 4.3 mmol/L (3.6-5.1)
[2023-07-26 14:11] LABS: Alkaline Phosphatase* 28 U/L (40-150); Anion Gap 9 mEq/L (7-15); Aspartate Amino Transferase* 47 U/L (12-35); Carbon Dioxide* 19 mmol/L (20-32); Creatinine* 1.2 mg/dL (0.5-1.5); Estimated Glomerular Filt Rate 67 ml/min; Total Protein* 7.1 g/dL (6.0-8.3)
[2023-07-26] MEDS: ASPIRIN 81 MG TAB.CHEW 162 MG PO (14:11)
[2023-07-26 14:12] LABS: Alanine Aminotransferase* 52 U/L (4-50); Blood Urea Nitrogen* 27 mg/dL (7-30); Calcium* 8.7 mg/dL (8.4-10.6); Glucose* 197 mg/dL (60-115); Magnesium* 1.8 mg/dL (1.5-2.6)
[2023-07-26 14:14] LABS: C Reactive Protein* 0.5 mg/dL (0.5-1.0)
[2023-07-26 14:23] LABS: D Dimer Quantitative* 0.36 ug/ml (0.00-0.50); NT Pro B Type NatriureticPept* 772 pg/mL
[2023-07-26 14:24] LABS: Troponin I* 0.35 ng/mL (0.01-0.04)
[2023-07-26] MEDS: HEPARIN 5,000 UNIT/0.5 ML INJ 4000 UNIT IVP (14:50)
[2023-07-26] MEDS: HEPARIN 25,000 UNIT/500 ML BAG 20 UNIT IV (14:52)
[2023-07-26] MEDS: MORPHINE 2 MG/ML inj IVP (15:42)
[2023-07-26] MEDS: ONDANSETRON 2 MG/ML inj 4 MG IVP (15:42)
--- NOTE | 2023-07-26 15:50 | ED.NURSE ---
report given to EMS
[2023-07-26 16:33] LABS: Basophils Percent Auto 0.2 % (0.0-3.0); Eosinophils Percent Auto 1.6 % (0.0-7.0); Hematocrit 42.4 % (37.0-53.0); Hemoglobin* 13.1 gm/dL (13.5-17.5); Lymphocytes Percent Auto 43.2 % (20-44); Mean Corpuscular HGB Conc 31 gm/dL (32-36); Mean Corpuscular Hemoglobin 26 pg (26-34); Mean Corpuscular Volume 83 fL (80-100); Monocytes Percent Auto 6.9 % (0.0-11.0); Neutrophils Percent Auto 48.1 % (42.0-72.0); Red Blood Count 5.09 m/uL (4.30-5.90); White Blood Count* 4.33 K/uL (4.50-11.00)
[2023-07-26 16:36] LABS: INR 1.81 (0.91-1.10); Partial Thromboplastin Time* 30 Seconds (23-33); Prothrombin Time 22.3 Seconds
[2023-07-26 16:43] LABS: Slide Review Reflex Yes
[2023-07-26 16:44] LABS: Slide Review Acceptable Review (Acceptable)
== END 2023-07-26 16:05 | disposition short-term general hospital (02) ==
PROVIDERS: Emergency Provider Family Medicine; PCP Family Medicine
DX: I21.4 Non-ST elevation (NSTEMI) myocardial infarction (principal)
CPT/HCPCS: 36415; 71045; 80053; 82803; 83735; 83880; 84484; 85025; 85379; 85610; 85730; 86140; 93005; 94761; 95992; 96374; 96375; 99285; A9270; J1644; J2270; J2405; J7050

== ENCOUNTER 2023-07-26 15:55 | Outpatient (CLI) | payer MEDICARE, BC, SELFPAY | END 2023-07-26 15:56 | disposition home or self-care (01) | LOC: AMB 08-01 09:31 | PROVIDERS: PCP Family Medicine; Visit Provider Emergency Medicine Emergency Medical Services | DX: I21.4 Non-ST elevation (NSTEMI) myocardial infarction (principal) | CPT/HCPCS: A0425; A0434 ==

== ENCOUNTER 2023-11-11 12:58 | Emergency (ER) | payer MEDICARE, SELFPAY ==
[2023-11-11] VITALS (22 sets, daily range): BP systolic 111–147; BP diastolic 51–113; PULSE 41–77; RESP 20; TEMP 36.5; O2SAT 93–99; BMI 31.8
[2023-11-11 13:51] LABS: Lactate* 1.2 mmol/L (0.5-1.9)
--- NOTE | 2023-11-11 13:57 | ED_ITS ---
HPI - General Adult General Chief complaint: Chest Pain Stated complaint: Chest pain,shortness of breath,dizziness Time Seen by Provider: 11/11/23 13:14 Source: patient Mode of arrival: ambulatory Limitations: no limitations History of Present Illness HPI narrative: 67-year-old patient, with a history of hypertension, type 2 diabetes with diabetic polyneuropathy, congestive heart failure, hyperlipidemia, sleep apnea, depression, coronary artery disease status post stenting, stage 3 chronic kidney disease presenting today with chest pain. Patient states he has had chest pain since last July. He does take sublingual nitro p.r.n.. In the last 3 days he states he has been taking more than usual. Patient was in the ER from 11/04- 11/05 at [place] and then transferred to [place] 11/05-11/06 [facility] [place]. He had a chest CT angiogram to rule out dissection at [place] and this showed a questionable flap appearance at the aortic root, a dedicated cardiac vascular CT with motion gating was recommended and so he was transferred for [place] for this test which was unremarkable. During his hospitalization his losartan and diuretics were held secondary to syncope and orthostasis. He was discharged ho hi with a ZIO patch for 2 weeks. His workup was negative for acute coronary syndrome, PE or aortic dissection. In July of 2023 he had a non ST elevation NM and angiogram which revealed 99% stenosis of the right coronary artery and a stent was placed at that time. Patient has had on and off chest pain, dizziness and lightheadedness since last July. He is on aspirin, atorvastatin, Plavix, metoprolol and p.r.n. Lasix, she Lantus, gabapentin, metformin, sublingual nitro. Off he states that he was seen in the clinic today for and ER visit follow-up and he states that he was told to go to the ER right away. Patient is fatigued, the lightheaded. These are not new symptoms for him. Related Data Home Medications Medication Instructions Recorded Confirmed atorvastatin 40 mg tablet 40 mg PO QPM 01/08/23 11/11/23 gabapentin 300 mg capsule 300 mg PO 3XD 01/08/23 11/11/23 insulin glargine 100 unit/mL (3 30 unit subcut QPM 01/08/23 11/11/23 mL) subcutaneous pen (Lantus Solostar U-100 Insulin) insulin lispro 100 unit/mL 6 - 8 unit subcut 3XD 01/08/23 11/11/23 subcutaneous pen metformin 500 mg tablet,extended 1,000 mg PO BID 01/08/23 11/11/23 release 24 hr semaglutide 0.25 mg or 0.5 mg (2 0.25 mg subcut 01/08/23 05/17/23 mg/3 mL) subcutaneous pen injector (Ozempic) oxycodone 5 mg tablet mg PO 05/17/23 05/17/23 ammonium lactate 12 % lotion topical BID 11/11/23 clopidogrel 75 mg tablet 75 mg PO DAILY 11/11/23 11/11/23 furosemide 20 mg tablet 20 mg PO QAM 11/11/23 11/11/23 metoprolol succinate 25 mg 25 mg PO BID 11/11/23 11/11/23 tablet,extended release 24 hr Previous Rx's Medication Instructions Recorded cyclobenzaprine 5 mg tablet 5 - 10 mg (1 - 2 x 5 mg) PO TID 01/08/23 PRN muscle spasm #20 tabs tramadol 50 mg tablet 50 mg PO Q8H PRN pain #10 tabs 01/08/23 Allergies Allergy/AdvReac Type Severity Reaction Status Date / Time acetaminophen Allergy Mild Verified 11/11/23 13:12 [From Darvocet-N] oxycodone [From Percocet] Allergy Mild Verified 11/11/23 13:12 propoxyphene Allergy Mild Verified 11/11/23 13:12 [From Darvocet-N] bupropion [From Wellbutrin] Allergy Verified 11/11/23 13:12 Review of Systems Status of ROS: Reports: 10 or more systems reviewed and unremarkable except as noted in History and below [facility] Surgical History Amputated toe of left foot ?S98.132A - Complete traumatic amputation of one left lesser toe, initial en counter (ICD-10) Cervical vertebral fusion ?M43.22 - Fusion of spine, cervical region (ICD-10) S/P right rotator cuff repair ?Z98.890 - Other specified postprocedural states (ICD-10) History of cholecystectomy ?Z90.49 - Acquired absence of other specified parts of digestive tract (ICD- 10) History of appendectomy ?Z90.49 - Acquired absence of other specified parts of digestive tract (ICD- 10) Gastric bypass status for obesity ?Z98.84 - Bariatric surgery status (ICD-10) Social History Smoking Status: Never smoker Do you use any of these nicotine containing products: None Second hand tobacco smoke exposure: No How often do you have a drink containing alcohol: 2-3 times a week How many standard drinks containing alcohol do you have on a typical day: 1 or 2 How often do you have six or more drinks on one occasion: Never AUDIT-C Alcohol total score: 3 Non-prescribed substance use: denies use service: No Exam Narrative: Exam Narrative: By the time I see the patient his chest pain has already improved. Overweight, well-developed patient, appears older than stated age, in no acute distress. Alert and oriented. Answers questions appropriately. Mood and affect are appropriate. Thoughts are goal oriented and rational. No tangential or magical thinking noted. Patient speaks in full sentences without needing to catch his breath. HEENT: Normocephalic atraumatic. Pupils are equally round reactive to light. Extraocular muscles are intact. Conjunctivae are moist without any icterus noted. Moist mucous membranes. Posterior pharynx is normal. Neck is soft without any lymphadenopathy or thyromegaly. No masses are appreciated. Cardiovascular: Heart is regular rate and rhythm S1 and S2 are present without any murmurs. Lungs: Clear to auscultation bilaterally no wheezes rhonchi or rales are appreciated. Patient takes deep breaths without any discomfort. Abdomen: Soft and nontender nondistended with normal bowel sounds. No guarding or rebound. Extremities: Bilateral lower extremities are without edema. Normal DP and PT pulses. Skin: Well perfused without any obvious rashes. Const: Vital Signs, click to edit/add: Vital Signs - 24 hr 11/11/23 13:08 11/11/23 13:31 Temperature 97.7 F Pulse Rate [Pulse Oximeter] 77 Respiratory Rate 20 Blood Pressure [Ri ght Upper Arm] 138/84 Pulse Oximetry 98 97 Oxygen Delivery Me thod Room Air Course Course ED Course: EKG, read by me, shows normal sinus rhythm with frequent premature ventricular complexes, right bundle-branch block with a pulse of 81. Not significantly different than the EKG done in July. IV is established, patient is placed on brand sales consultant. Labs are drawn. I am able to review his records from [place]. Chemistry shows slightly low sodium at 1:34 a.m., creatinine is 1, glucose is 207. AST slightly elevated at 69. Point of care troponin elevated at 12.31. At this time patient is given oral aspirin and IV heparin is started. Troponin I verifies elevated troponin at 12.10. I did call Dr. Valencia, senior program manager at [facility] who recommends transfer at this time. Given that the patient was feeling better, IV nitroglycerin was not started. Vital Signs Vital signs: Initial Vital Signs Temperature 97.7 F 11/11/23 13:08 Temperature Source Temporal Artery Scan 11/11/23 13:08 Pulse Rate 77 11/11/23 13:08 Respiratory Rate 20 11/11/23 13:08 Blood Pressure 138/84 11/11/23 13:08 Blood Pressure Mean 102 11/11/23 13:08 Blood Pressure Position Sitting 11/11/23 13:08 Pulse Oximetry 98 11/11/23 13:08 Oxygen Delivery Method Room Air 11/11/23 13:08 Vital Signs Temperature 97.7 F 11/11/23 13:08 Pulse Rate 77 11/11/23 13:08 Respiratory Rate 20 11/11/23 13:08 Blood Pressure 138/84 11/11/23 13:08 Pulse Oximetry 98 11/11/23 13:08 Oxygen Delivery Method Room Air 11/11/23 13:08 Temperature 97.7 F 11/11/23 13:08 Pulse Rate 77 11/11/23 13:08 Respiratory Rate 20 11/11/23 13:08 Blood Pressure 138/84 11/11/23 13:08 Pulse Oximetry 97 11/11/23 13:31 Oxygen Delivery Method Room Air 11/11/23 13:08 Medications Administered Medications: Generic Name Dose Route Start Last Admin Trade Name Freq PRN Reason Stop Dose Admin Heparin Sodium/Dextrose 25,000 unit in 500 mls @ 0 mls/hr 11/11/23 15:00 09/04 15:16 Heparin IV 1,000 unit/hr .Q0M GIOVANNI 20 mls/hr Administration Protocol Per Protocol Discontinued Medications Generic Name Dose Route Start Last Admin Trade Name Freq PRN Reason Stop Dose Admin Aspirin 324 mg 11/11/23 14:17 04/01/24 14:17 Aspirin 81 Mg Tab.Chew PO 11/11/23 14:18 324 mg ONCE ONE Administration Heparin Sodium (Porcine) 4,000 unit 11/11/23 14:27 11/11/23 14:35 Heparin 5,000 Unit/0.5 Ml Inj IVP 11/11/23 14:28 4,000 unit ONCE ONE Administration Medical Decision Making MDM Narrative Medical decision making narrative: 67-year-old male presenting with a non ST elevation NM. Patient will be transferred to [facility] for further management. Medical Records Medical records reviewed: Yes I reviewed the patient's medical records Lab Data Lab results reviewed: Yes I reviewed the patient's lab results Labs: Lab Results 11/11/23 11/11/23 11/11/23 Range/Units 13:32 13:44 15:01 WBC 6.53 (4.50-11.00) K/uL RBC 4.86 (4.30-5.90) m/uL Hgb 13.5 (13.5-17.5) gm/dL Hct 42.0 (37.0-53.0) % MCV 86 (80-100) fL MCH 28 (26-34) pg MCHC 32 (32-36) gm/dL RDW Coeff of Lou 14.0 (11.5-15.5) % Plt Count 118 L (140-440) K/uL Neut % (Auto) 63.7 (42.0-72.0) % Lymph % (Auto) 23.6 (20-44) % Perkins % (Auto) 10.7 (0.0-11.0) % Eos % (Auto) 1.2 (0.0-7.0) % Baso % (Auto) 0.2 (0.0-3.0) % Neut # (Auto) 4.16 (1.7-7.0) K/uL Lymph # (Auto) 1.54 (0.90-2.90) K/uL Perkins # (Auto) 0.70 (0.00-0.90) K/UL Eos # (Auto) 0.08 (0.00-0.50) K/uL Baso # (Auto) 0.01 (0.00-0.30) K/uL Abs Immat Gran (auto) 0.04 (0.00-0.30) K/uL Imm/Tot Granulo (auto) 0.6 % Sodium 134 L (135-149) mmol/L Potassium 4.4 (3.6-5.1) mmol/L Chloride 102 (96-114) mmol/L Carbon Dioxide 28 (20-32) mmol/L Anion Gap 4 L (7-15) mEq/L BUN 23 (7-30) mg/dL Creatinine 1.0 (0.5-1.5) mg/dL Estimated Creat Clear 84.48 Estimated GFR 83 ml/min Glucose 207 H (60-115) mg/dL Lactate 1.2 1.3 (0.5-1.9) mmol/L Calcium 8.9 (8.4-10.6) mg/dL Total Bilirubin 1.2 (0.1-1.5) mg/dL Direct Bilirubin 0.0 (0.0-0.5) mg/dL AST 69 H (12-35) U/L ALT 29 (4-50) U/L Alkaline Phosphatase 45 (40-150) U/L Troponin I 12.10 H* (0.01-0.04) ng/mL C-Reactive Protein 2.6 H (0.5-1.0) mg/dL Total Protein 7.0 (6.0-8.3) g/dL Albumin 3.9 (3.3-5.0) g/dL Lipase 33 (23-300) U/L SARS-CoV-2 (PCR) Negative SARS-CoV-2 (Negative) Influenza Type A (PCR) Negative PCR FLU A (Negative) Influenza Type B (PCR) Negative PCR FLU B (Negative) POC Troponin I 12.31 H (0.01-0.04) ng/ml ECG Data Attestation: I personally reviewed and interpreted this ECG as follows: Discharge Plan Discharge Clinical Impression: Non-ST elevated myocardial infarction Patient Disposition: Xfer [facility] Discharge Location: [facility] Condition: Stable Prescriptions: No Action oxycodone 5 mg tablet PO atorvastatin 40 mg tablet 40 mg PO QPM gabapentin 300 mg capsule 300 mg PO 3XD metformin 500 mg tablet extended release 24 hr 1,000 mg PO BID insulin lispro 100 unit/mL insulin pen 6 - 8 unit subcut 3XD insulin glargine [Lantus Solostar U-100 Insulin] 100 unit/mL (3 mL) insulin pen 30 unit subcut QPM Ozempic 0.25 mg or 0.5 mg (2 mg/3 mL) pen injector 0.25 mg subcut cyclobenzaprine 5 mg tablet 5 - 10 mg PO TID PRN (Reason: muscle spasm) Qty: 20 0RF tramadol 50 mg tablet 50 mg PO Q8H PRN (Reason: pain) Qty: 10 0RF ammonium lactate 12 % lotion topical BID clopidogrel 75 mg tablet 75 mg PO DAILY furosemide 20 mg tablet 20 mg PO QAM metoprolol succinate 25 mg tablet extended release 24 hr 25 mg PO BID Stand Alone Forms: MyHealth Info Instructions
[2023-11-11 14:01] LABS: Basophils Absolute Auto 0.01 K/uL (0.00-0.30); Basophils Percent Auto 0.2 % (0.0-3.0); Eosinophils Absolute Auto 0.08 K/uL (0.00-0.50); Eosinophils Percent Auto 1.2 % (0.0-7.0); Hemoglobin* 13.5 gm/dL (13.5-17.5); Immature Granulocytes Abs Auto 0.04 K/uL (0.00-0.30); Immature Granulocytes Pct Auto 0.6 %; Lymphocytes Absolute Auto 1.54 K/uL (0.90-2.90); Lymphocytes Percent Auto 23.6 % (20-44); Mean Corpuscular HGB Conc 32 gm/dL (32-36); Mean Corpuscular Hemoglobin 28 pg (26-34); Mean Corpuscular Volume 86 fL (80-100); Monocytes Percent Auto 10.7 % (0.0-11.0); Neutrophils Absolute Auto 4.16 K/uL (1.7-7.0); Neutrophils Percent Auto 63.7 % (42.0-72.0); Platelet Count* 118 K/uL (140-440); Red Blood Count 4.86 m/uL (4.30-5.90); White Blood Count* 6.53 K/uL (4.50-11.00)
[2023-11-11 14:09] LABS: Albumin* 3.9 g/dL (3.3-5.0); Chloride* 102 mmol/L (96-114); Potassium* 4.4 mmol/L (3.6-5.1); Sodium* 134 mmol/L (135-149)
[2023-11-11 14:11] LABS: Est. Creatinine Clearance* 84.48; Estimated Glomerular Filt Rate 83 ml/min
[2023-11-11 14:12] LABS: Alanine Aminotransferase* 29 U/L (4-50); Alkaline Phosphatase* 45 U/L (40-150); Anion Gap 4 mEq/L (7-15); Aspartate Amino Transferase* 69 U/L (12-35); Bilirubin Total* 1.2 mg/dL (0.1-1.5); Blood Urea Nitrogen* 23 mg/dL (7-30); Calcium* 8.9 mg/dL (8.4-10.6); Carbon Dioxide* 28 mmol/L (20-32); Glucose* 207 mg/dL (60-115); Lipase* 33 U/L (23-300)
[2023-11-11 14:13] LABS: Troponin, Point-of-Care* 12.31 ng/ml (0.01-0.04)
[2023-11-11 14:15] LABS: C Reactive Protein* 2.6 mg/dL (0.5-1.0)
[2023-11-11] MEDS: ASPIRIN 81 MG TAB.CHEW 324 MG PO (14:17)
[2023-11-11 14:35] LABS: PCR FLU A Negative PCR FLU A (Negative); PCR FLU B Negative PCR FLU B (Negative); SARS PCR* Negative SARS-CoV-2 (Negative)
[2023-11-11] MEDS: HEPARIN 5,000 UNIT/0.5 ML INJ 4000 UNIT IVP (14:35)
[2023-11-11 15:14] LABS: Lactate* 1.3 mmol/L (0.5-1.9)
[2023-11-11] MEDS: HEPARIN 25,000 UNIT/500 ML BAG 20 UNIT IV (15:16)
[2023-11-11 15:19] LABS: Slide Review Reflex No
[2023-11-11 15:38] LABS: INR 1.11 (0.91-1.10)
[2023-11-11 16:03] LABS: Partial Thromboplastin Time* > 180 Seconds (23-33)
== END 2023-11-11 16:26 | disposition short-term general hospital (02) ==
PROVIDERS: Emergency Provider Family Medicine; PCP Family Medicine
DX: I21.4 Non-ST elevation (NSTEMI) myocardial infarction (principal)
CPT/HCPCS: 36415; 80048; 80076; 83605; 83690; 84484; 85025; 85610; 85730; 86140; 87631; 93005; 94761; 99285; 99291; A9270; J1644

== ENCOUNTER 2023-11-11 16:12 | Outpatient (CLI) | payer MEDICARE, SELFPAY | END 2023-11-11 16:13 | disposition home or self-care (01) | LOC: AMB 11-16 07:31 | PROVIDERS: PCP Family Medicine; Visit Provider Family Medicine | DX: I21.4 Non-ST elevation (NSTEMI) myocardial infarction (principal) | CPT/HCPCS: A0425; A0427 ==

== ENCOUNTER 2024-04-20 10:42 | Outpatient (CLI) | payer MEDICARE, SELFPAY | END 2024-04-20 10:43 | disposition home or self-care (01) | LOC: NFLDUCREF 10:43 | PROVIDERS: PCP Family Medicine; Visit Provider Nurse Practitioner | DX: L03.311 Cellulitis of abdominal wall (principal) | CPT/HCPCS: 87070 ==

== ENCOUNTER 2024-04-22 18:39 | Emergency (ER) | payer MEDICARE, SELFPAY ==
[2024-04-22] VITALS (27 sets, daily range): BP systolic 113–150; BP diastolic 69–109; PULSE 59–74; RESP 16; TEMP 37.3; O2SAT 91–99; BMI 30.9
--- NOTE | 2024-04-22 19:25 | CRLHL7_ITS ---
For Patients: As a result of the Century Cures Act, medical imaging exams and procedure reports are released immediately into your electronic medical record. You may view this report before your referring provider. If you have questions, please contact your health care provider. INDICATION: LESIONS NOTED AROUND UMBELICAL REGION. TECHNIQUE: CT abdomen and pelvis acquired with 118 cc Isovue 370 IV contrast. COMPARISON: None. FINDINGS: Lower chest: Bibasilar atelectasis or scarring. Coronary artery calcifications. Liver: Unremarkable. Normal in size and attenuation. No suspicious masses. Gallbladder and bile ducts: Gallbladder is absent. Mild intra and extrahepatic biliary ductal dilatation likely reservoir effect. Pancreas: Mild fatty atrophy of the pancreas. No focal lesions identified. Spleen: Unremarkable. Normal in size. No masses. Adrenal glands: Unremarkable. No nodules. Kidneys: No hydronephrosis or hydroureter. No renal or ureteral stones. Bilateral superior pole simple appearing cysts largest on the left measuring up to 4.3 centimeters in diameter. GI tract: Above average colonic stool volume. A few scattered colonic diverticuli. No evidence of diverticulitis. Probable prior appendectomy. No bowel obstruction. Postsurgical changes from gastric bypass. Vasculature: Abdominal aorta is normal in caliber. Mesenteric arteries are patent. Moderate calcific atherosclerosis of the aorta. Lymph nodes: No lymphadenopathy. Peritoneum/Abdominal Wall: Small fat containing umbilical hernia. Right lower quadrant scar extending to the cutaneous surface. Left lower quadrant cutaneous thickening and subcutaneous stranding are small fluid (2/111). Pelvis: Unremarkable. Bones: Unremarkable for age. IMPRESSION: 1. No acute intra-abdominal process identified. 2. Above average colonic stool volume. Postsurgical changes from likely prior appendectomy and gastric bypass. 3. Cutaneous thickening in the left lower quadrant of unknown etiology. This would be amenable to physical examination. 4. Status post cholecystectomy. Please note that all CT scans at this facility use dose modulation, iterative reconstruction, and/or weight-based dosing when appropriate to reduce radiation dose to as low as reasonably achievable. Dictated by Marcus Gonzalez MD @ 04/22/2024 9:01:25 PM (Electronically Signed)
--- NOTE | 2024-04-22 19:30 | ED.SKABFB ---
HPI - Skin/Abscess/Foreign Bdy General Date Seen: 04/22/24 Chief complaint: Skin/Abscess/Foreign Body Stated complaint: Sent from [facility]-infection in navel Time Seen by Provider: 04/22/24 19:16 Source: patient Mode of arrival: ambulatory Limitations: no limitations History of Present Illness HPI narrative: Patient is a 68-year-old male with multiple previous abdominal surgeries for precancerous lesions leading to a colon resection presenting to emergency department for lesion some possible abscesses around his umbilical region. He states he 1st noticed the lesion about a cm or 2 above the umbilicus along appears to be a previous incisional site. There also is 2 lesions within the belly button on either edge. He has a bowel been there for about 2 weeks. Has some superficial pain in the areas he states but went to urgent care 2 days ago and was started on Bactrim. Has not noticed any improvement yet and was called by urgent care to return for re-evaluation she since he has not noticed any improvement. The wound go unsure which shows a moderate amount of coagulase-negative Staph no further workup was done. No other concerns noted at this time. Related Data Home Medications ?Medication ?Instructions ?Recorded ?Confirmed atorvastatin 40 mg tablet 40 mg PO QPM 01/08/23 04/22/24 gabapentin 300 mg capsule 300 mg PO 3XD 01/08/23 04/22/24 insulin glargine 100 unit/mL (3 20 unit subcut QPM 01/08/23 04/22/24 mL) subcutaneous pen (Lantus Solostar U-100 Insulin) insulin lispro 100 unit/mL 6 - 8 unit subcut 3XD 01/08/23 04/22/24 subcutaneous pen metformin 500 mg tablet,extended 1,000 mg PO BID 01/08/23 04/22/24 release 24 hr oxycodone 5 mg tablet 10 mg PO HS 05/17/23 04/22/24 clopidogrel 75 mg tablet 75 mg PO DAILY 11/11/23 04/22/24 metoprolol succinate 25 mg 25 mg PO BID 11/11/23 04/22/24 tablet,extended release 24 hr duloxetine 30 mg capsule,delayed 30 mg PO DAILY 04/20/24 04/22/24 release Previous Rx's ?Medication ?Instructions ?Recorded sulfamethoxazole 800 1 tab PO BID 10 days #20 tabs 04/20/24 mg-trimethoprim 160 mg tablet Allergies Allergy/AdvReac Type Severity Reaction Status Date / Time acetaminophen Allergy Mild Verified 04/22/24 20:13 [From Darvocet-N] oxycodone [From Percocet] Allergy Mild Verified 04/22/24 20:13 propoxyphene Allergy Mild Verified 04/22/24 20:13 [From Darvocet-N] bupropion [From Wellbutrin] Allergy Verified 04/22/24 20:13 Review of Systems Status of ROS: Reports: 10 or more systems reviewed and unremarkable except as noted in History and below [facility] Surgical History Amputated toe of left foot ?S98.132A - Complete traumatic amputation of one left lesser toe, initial encounter (ICD-10) Cervical vertebral fusion ?M43.22 - Fusion of spine, cervical region (ICD-10) S/P right rotator cuff repair ?Z98.890 - Other specified postprocedural states (ICD-10) History of cholecystectomy ?Z90.49 - Acquired absence of other specified parts of digestive tract (ICD-10) History of appendectomy ?Z90.49 - Acquired absence of other specified parts of digestive tract (ICD-10) Gastric bypass status for obesity ?Z98.84 - Bariatric surgery status (ICD-10) Social History Smoking Status: Never smoker Do you use any of these nicotine containing products: None Second hand tobacco smoke exposure: No How often do you have a drink containing alcohol: 2-3 times a week How many standard drinks containing alcohol do you have on a typical day: 1 or 2 How often do you have six or more drinks on one occasion: Never AUDIT-C Alcohol total score: 3 Non-prescribed substance use: denies use service: No Exam Narrative: Exam Narrative: Const: Well-nourished, Well-developed, in mild distress Eyes: PERRL, no conjunctival injection, and symmetrical lids HENT: Atraumatic external nose and ears. Moist mucous membranes. Neck: Symmetric, trachea midline, No thyromegaly. CVS: RRR, No murmurs or gallops. Peripheral pulses 2+ and equal in all extremities RESP: Unlabored respiratory effort. Clear to auscultation bilaterally. GI: Nontender/Nondistended, No rebound or guarding. MSK:Extremities w/o deformity, Normal Active ROM Skin: Warm, Dry. Small lesion noted 1 cm above the umbilicus about 0.3 cm by 0.3 cm, to similar lesions noted within the umbilicus 1 on either lateral edge both about half a cm in size Neuro: Normal Muscle tone, No focal neurological deficits. Psych: Awake, Alert, & Oriented x3. Appropriate mood and affect. Const: Vital Signs, click to edit/add: Vital Signs - 24 hr 04/22/24 18:47 04/22/24 20:25 04/22/24 20:27 Temperature 99.1 F Pulse Rate 66 65 Pulse Rate [Pulse Oximeter] 71 Respiratory Rate 16 Blood Pressure 138/72 Blood Pressure [Ri ght Upper Arm] 113/70 Pulse Oximetry 98 99 96 Oxygen Delivery Me thod Room Air 04/22/24 20:30 04/22/24 20:32 04/22/24 20:42 Temperature Pulse Rate 67 67 67 Pulse Rate [Pulse Oximeter] Respiratory Rate Blood Pressure 135/69 136/73 Blood Pressure [Ri ght Upper Arm] Pulse Oximetry 96 95 96 Oxygen Delivery Me thod 04/22/24 20:45 04/22/24 20:47 04/22/24 20:48 Temperature Pulse Rate 67 67 68 Pulse Rate [Pulse Oximeter] Respiratory Rate Blood Pressure 150/75 H Blood Pressure [Ri ght Upper Arm] Pulse Oximetry 95 96 96 Oxygen Delivery Me thod 04/22/24 21:00 04/22/24 21:02 04/22/24 21:03 Temperature Pulse Rate 68 67 68 Pulse Rate [Pulse Oximeter] Respiratory Rate Blood Pressure 143/92 H Blood Pressure [Ri ght Upper Arm] Pulse Oximetry 97 98 96 Oxygen Delivery Me thod 04/22/24 21:15 04/22/24 21:30 04/22/24 21:33 Temperature Pulse Rate 63 66 68 Pulse Rate [Pulse Oximeter] Respiratory Rate Blood Pressure 143/109 H Blood Pressure [Ri ght Upper Arm] Pulse Oximetry 96 98 97 Oxygen Delivery Me thod 04/22/24 21:34 04/22/24 21:45 04/22/24 22:00 Temperature Pulse Rate 66 62 65 Pulse Rate [Pulse Oximeter] Respiratory Rate Blood Pressure Blood Pressure [Ri ght Upper Arm] Pulse Oximetry 97 97 91 Oxygen Delivery Me thod 04/22/24 22:02 04/22/24 22:15 04/22/24 22:30 Temperature Pulse Rate 63 63 66 Pulse Rate [Pulse Oximeter] Respiratory Rate Blood Pressure 145/78 H Blood Pressure [Ri ght Upper Arm] Pulse Oximetry 99 99 99 Oxygen Delivery Me thod 04/22/24 22:32 04/22/24 22:45 04/22/24 23:05 Temperature Pulse Rate 65 63 74 Pulse Rate [Pulse Oximeter] Respiratory Rate Blood Pressure 148/86 H Blood Pressure [Ri ght Upper Arm] Pulse Oximetry 98 98 95 Oxygen Delivery Me thod 04/22/24 23:15 04/22/24 23:28 Temperature Pulse Rate 59 L Pulse Rate [Pulse Oximeter] Respiratory Rate 16 Blood Pressure Blood Pressure [Ri ght Upper Arm] Pulse Oximetry 97 Oxygen Delivery Me thod Course Vital Signs Vital signs: Initial Vital Signs Temperature 99.1 F 04/22/24 18:47 Temperature Source Temporal Artery Scan 04/22/24 18:47 Pulse Rate 71 04/22/24 18:47 Respiratory Rate 16 04/22/24 18:47 Blood Pressure 113/70 04/22/24 18:47 Blood Pressure Mean 84 04/22/24 18:47 Blood Pressure Position Sitting 04/22/24 18:47 Pulse Oximetry 98 04/22/24 18:47 Oxygen Delivery Method Room Air 04/22/24 18:47 Vital Signs Temperature 99.1 F 04/22/24 18:47 Pulse Rate 71 04/22/24 18:47 Respiratory Rate 16 04/22/24 18:47 Blood Pressure 113/70 04/22/24 18:47 Pulse Oximetry 98 04/22/24 18:47 Oxygen Delivery Method Room Air 04/22/24 18:47 Temperature 99.1 F 04/22/24 18:47 Pulse Rate 59 L 04/22/24 23:15 Respiratory Rate 16 04/22/24 23:28 Blood Pressure 148/86 H 04/22/24 22:32 Pulse Oximetry 97 04/22/24 23:15 Oxygen Delivery Method Room Air 04/22/24 18:47 Medications Administered Medications: Discontinued Medications Generic Name Dose Route Start Last Admin Trade Name Freq PRN Reason Stop Dose Admin Lactated Ringer's 1,000 mls @ 1,000 mls/hr 04/22/24 20:14 04/22/24 21:56 Lactated Ringers 1000 Ml IV 04/22/24 21:13 Infused .Q1H ONE Infusion MDM - Skin/Abscess/Foreign Bdy MDM Narrative Medical decision making narrative: Patient 68-year-old male presenting for concerns of lesions infection on his abdomen. He is on Bactrim ready and does have follow-up with primary care provider on Saturday but was told to come in right urgent care for re-evaluation. I will do a CBC, BMP and do CT scan with IV contrast to make sure there are no deeper abscesses. Creatinine is elevated 1.8. Baseline is about 1.2 and he has at about the threshold of an MIGEL. His GFR though is still at an appropriate level to do IV contrast. CBC shows no concerning abnormalities. His hemoglobins down about 0.8 but he is not having any lightheadedness or dizziness left different from his baseline. While he is at CT scanner and was standing up he had an episode of syncope which she states is common for him. He was also having some mild chest pain after this episode which she states does happen with it but not as common. Did do a troponin and an EKG at that time an EKG troponin showed no concerning findings. Will repeat troponin 2 hours. I also given him 1 L fluid and will repeat his creatinine and at that time too. CT scan reviewed by myself and the radiologist shows no deep abscesses. There is some constipation but no concerning abnormalities. These lesions seem to be superficial. Repeat creatinine is 1.7 and repeat troponin within normal limits. Of note his last creatinine through [facility] was and a protein was 1.24. Does not currently meet criteria for an MIGEL. Chest pain has resolved. Would like to go home. I will discharge him inform him to follow-up his primary care provider as he radius is appointment for Saturday. At that time they will evaluate the lesions and see if he needs to follow up with General surgery and also will recheck lab work. They are agreeable with this plan. Lab Data Labs: Lab Results 04/22/24 04/22/24 04/22/24 Range/Units 19:25 19:50 21:06 WBC 5.30 (4.50-11.00) K/uL RBC 4.68 (4.30-5.90) m/uL Hgb 12.5 L (13.5-17.5) gm/dL Hct 40.4 (37.0-53.0) % MCV 86 (80-100) fL MCH 27 (26-34) pg MCHC 31 L (32-36) gm/dL RDW Coeff of Lou 12.9 (11.5-15.5) % Plt Count 131 L (140-440) K/uL Neut % (Auto) 49.9 (42.0-72.0) % Lymph % (Auto) 35.3 (20-44) % [place] % (Auto) 10.8 (0.0-11.0) % Eos % (Auto) 3.6 (0.0-7.0) % Baso % (Auto) 0.4 (0.0-3.0) % Neut # (Auto) 2.65 (1.7-7.0) K/uL Lymph # (Auto) 1.87 (0.90-2.90) K/uL [place] # (Auto) 0.60 (0.00-0.90) K/UL Eos # (Auto) 0.19 (0.00-0.50) K/uL Baso # (Auto) 0.02 (0.00-0.30) K/uL Abs Immat Gran (auto) 0.00 (0.00-0.30) K/uL Imm/Tot Granulo (auto) 0.0 % Sodium 139 (135-149) mmol/L Potassium 4.4 (3.6-5.1) mmol/L Chloride 106 (96-114) mmol/L Carbon Dioxide 23 (20-32) mmol/L Anion Gap 10 (7-15) mEq/L BUN 32 H (7-30) mg/dL Creatinine 1.8 H (0.5-1.5) mg/dL Estimated Creat Clear 46.30 Estimated GFR 41 ml/min Glucose 163 H (60-115) mg/dL Calcium 8.9 (8.4-10.6) mg/dL POC Creatinine 1.8 H (0.6-1.3) mg/dl POC Troponin I 0.01 (0.01-0.04) ng/ml 04/22/24 Range/Units 23:05 WBC (4.50-11.00) K/uL RBC (4.30-5.90) m/uL Hgb (13.5-17.5) gm/dL Hct (37.0-53.0) % MCV (80-100) fL MCH (26-34) pg MCHC (32-36) gm/dL RDW Coeff of Lou (11.5-15.5) % Plt Count (140-440) K/uL Neut % (Auto) (42.0-72.0) % Lymph % (Auto) (20-44) % [place] % (Auto) (0.0-11.0) % Eos % (Auto) (0.0-7.0) % Baso % (Auto) (0.0-3.0) % Neut # (Auto) (1.7-7.0) K/uL Lymph # (Auto) (0.90-2.90) K/uL [place] # (Auto) (0.00-0.90) K/UL Eos # (Auto) (0.00-0.50) K/uL Baso # (Auto) (0.00-0.30) K/uL Abs Immat Gran (auto) (0.00-0.30) K/uL Imm/Tot Granulo (auto) % Sodium (135-149) mmol/L Potassium (3.6-5.1) mmol/L Chloride (96-114) mmol/L Carbon Dioxide (20-32) mmol/L Anion Gap (7-15) mEq/L BUN (7-30) mg/dL Creatinine (0.5-1.5) mg/dL Estimated Creat Clear Estimated GFR ml/min Glucose (60-115) mg/dL Calcium (8.4-10.6) mg/dL POC Creatinine 1.7 H (0.6-1.3) mg/dl POC Troponin I 0.01 (0.01-0.04) ng/ml Imaging Data CT scan abdomen and pelvis: Radiologist's impression: 1. No acute intra-abdominal process identified. 2. Above average colonic stool volume. Postsurgical changes from likely prior appendectomy and gastric bypass. 3. Cutaneous thickening in the left lower quadrant of unknown etiology. This would be amenable to physical examination. 4. Status post cholecystectomy. Please note that all CT scans at this facility use dose modulation, iterative reconstruction, and/or weight-based dosing when appropriate to reduce radiation dose to as low as reasonably achievable. Dictated by Marcus Gonzalez MD @ 04/22/2024 9:01:25 PM ECG Data Attestation: I personally reviewed and interpreted this ECG as follows: Prior ECG tracings: available for review Interpretation: Sinus rhythm with a first-degree AV block, left axis deviation, right bundle-branch block, normal QTC, no ST or T-wave abnormalities. Appears similar to previous EKG on file Discharge Plan Discharge Clinical Impression: Creatinine elevation, Skin lesion Patient Disposition: Home, Self-Care Condition: Stable Instructions: Acute Kidney Injury (DC) Additional Instructions: Make sure to keep your appointment for this Saturday to have them evaluate the lesions on your abdomen and see if they want you follow-up with general surgery. Also make sure they recheck your kidney function. Make sure you stay well-hydrated return for new worsening symptoms. Prescriptions: No Action oxycodone 5 mg tablet 10 mg PO HS duloxetine 30 mg capsule,delayed release(DR/EC) 30 mg PO DAILY sulfamethoxazole-trimethoprim 800-160 mg tablet 1 tab PO BID 10 Days Qty: 20 0RF atorvastatin 40 mg tablet 40 mg PO QPM gabapentin 300 mg capsule 300 mg PO 3XD metformin 500 mg tablet extended release 24 hr 1,000 mg PO BID insulin lispro 100 unit/mL insulin pen 6 - 8 unit subcut 3XD insulin glargine [Lantus Solostar U-100 Insulin] 100 unit/mL (3 mL) insulin pen 20 unit subcut QPM clopidogrel 75 mg tablet 75 mg PO DAILY metoprolol succinate 25 mg tablet extended release 24 hr 25 mg PO BID Follow Up/Referrals: Lakesha Khan MD [Primary Care Provider] - Stand Alone Forms: [employer] Info Instructions
[2024-04-22 19:44] LABS: Creatinine, Point-of-Care* 1.8 mg/dl (0.6-1.3)
[2024-04-22 19:56] LABS: Basophils Absolute Auto 0.02 K/uL (0.00-0.30); Basophils Percent Auto 0.4 % (0.0-3.0); Eosinophils Absolute Auto 0.19 K/uL (0.00-0.50); Eosinophils Percent Auto 3.6 % (0.0-7.0); Hematocrit 40.4 % (37.0-53.0); Hemoglobin* 12.5 gm/dL (13.5-17.5); Lymphocytes Absolute Auto 1.87 K/uL (0.90-2.90); Lymphocytes Percent Auto 35.3 % (20-44); Mean Corpuscular HGB Conc 31 gm/dL (32-36); Mean Corpuscular Hemoglobin 27 pg (26-34); Mean Corpuscular Volume 86 fL (80-100); Monocytes Percent Auto 10.8 % (0.0-11.0); Neutrophils Absolute Auto 2.65 K/uL (1.7-7.0); Neutrophils Percent Auto 49.9 % (42.0-72.0); Platelet Count* 131 K/uL (140-440); RDW Coefficient of Variation % 12.9 % (11.5-15.5); Red Blood Count 4.68 m/uL (4.30-5.90)
[2024-04-22 20:01] LABS: Slide Review Reflex No
[2024-04-22 20:08] LABS: Chloride* 106 mmol/L (96-114); Potassium* 4.4 mmol/L (3.6-5.1); Sodium* 139 mmol/L (135-149)
[2024-04-22 20:11] LABS: Anion Gap 10 mEq/L (7-15); Blood Urea Nitrogen* 32 mg/dL (7-30); Calcium* 8.9 mg/dL (8.4-10.6); Carbon Dioxide* 23 mmol/L (20-32); Creatinine* 1.8 mg/dL (0.5-1.5); Estimated Glomerular Filt Rate 41 ml/min; Glucose* 163 mg/dL (60-115)
[2024-04-22] MEDS: LACTATED RINGERS 1000 ML 1,000 ML IV (20:55)
[2024-04-22 21:32] LABS: Troponin, Point-of-Care* 0.01 ng/ml (0.01-0.04)
[2024-04-22 23:14] LABS: Creatinine, Point-of-Care* 1.7 mg/dl (0.6-1.3)
[2024-04-22 23:26] LABS: Troponin, Point-of-Care* 0.01 ng/ml (0.01-0.04)
== END 2024-04-22 23:59 | disposition home or self-care (01) ==
PROVIDERS: Emergency Provider Student in an Organized Health Care Education/Training Program; PCP Family Medicine
DX: T81.31XA Disruption of external operation (surgical) wound, not elsewhere classified, initial encounter (principal); R94.4 Abnormal results of kidney function studies
CPT/HCPCS: 36415; 74177; 80048; 82565; 84484; 85025; 93005; 94761; 99283; 99284; 99285; J7120; Q9967

== ENCOUNTER 2024-05-05 13:55 | Emergency (ER) | payer MEDICARE, SELFPAY ==
[2024-05-05] VITALS (19 sets, daily range): BP systolic 95–125; BP diastolic 55–78; PULSE 92–112; RESP 20; TEMP 36.6; O2SAT 87–97; BMI 29.7
--- NOTE | 2024-05-05 14:09 | ED.SYNCOPE ---
HPI - Syncope General Time Seen by Provider: 14:09 Date Seen: 05/05/24 Chief Complaint: Syncope/Fainted Stated Complaint: syncope at clinic Time Seen by Provider: 05/05/24 14:09 Source: patient, RN notes reviewed and other (Physician from [facility]) Limitations: no limitations History of Present Illness HPI narrative: Dale is a very pleasant 68-year-old gentleman with a history of type 2 diabetes, known cardiac disease with history of stents, recent antibiotic use for cellulitis around the umbilicus who comes to the emergency room for evaluation from the [facility] for syncopal episode. I was initially contacted by Dr. Tellez of the [facility]. States that this patient had a history of hypotension and wound infection on 04/24 with a blood pressure of 90/53 patient was treated with antibiotics and metoprolol 50 mg was discontinued. Today this gentleman was at work and stated that he had been feeling lightheaded this morning. At 1 point at work in the [employer] he felt like passing out and stopped and bent over and the feeling went away. He notes at 1215 he began to breathe harder and felt like breathing was difficult but he denies chest pain. He notes he was dizzy when he would stand up. He went to the [facility] because he took his blood pressures and thought they were elevated at 200 systolic. Instead when the clinic to cuts blood pressures they were in the 90s. They did orthostatic vital signs and his blood pressure dropped to 82 upon standing and his heart rate went 108-116. When he was sitting down in the doctor was examining him he lean forward and passed out for a few seconds according to the [facility] physician. Patient and his significant other notes that he has had issues with lightheadedness for ?18 years?. However this is been much worse since he had a stent placed in November of this year. In February this stent had to be replaced because it had failed. He is not currently on any diuretics, denies a cough cold congestion fever or chills. He notes that he has had an irregular heartbeat in the past found on Holter but he is not on any blood thinners. He notes that in the past he has had an ultrasound of his lower legs for clot and it was negative. His right calf is been larger than his left calf for some time. He takes insulin and oral medications for his diabetes. Blood sugar this morning was 101. In spite of being on antibiotics he does not have any diarrhea. Patient noted to have abdominal CT for his umbilical wound infection within the last few weeks and that was negative for any extension. He denies any abdominal pain today and no nausea or vomiting Upon further discussion patient has had no food today. He states he had some diet [employer] earlier and a small amount of lemonade. Patient did fall this past week while he was at an event. He fell backwards tripping over flower pot landing on his left arm and left side. Did not hit his head. No complaints except for some mild shoulder pain. Related Data Home Medications ?Medication ?Instructions ?Recorded ?Confirmed atorvastatin 40 mg tablet 40 mg PO QPM 01/08/23 05/05/24 gabapentin 300 mg capsule 300 mg PO 3XD 01/08/23 05/05/24 insulin glargine 100 unit/mL (3 20 unit subcut QPM 01/08/23 05/05/24 mL) subcutaneous pen (Lantus Solostar U-100 Insulin) insulin lispro 100 unit/mL 6 - 8 unit subcut 3XD 01/08/23 05/05/24 subcutaneous pen metformin 500 mg tablet,extended 1,000 mg PO BID 01/08/23 05/05/24 release 24 hr oxycodone 5 mg tablet 10 mg PO HS 05/17/23 05/05/24 clopidogrel 75 mg tablet 75 mg PO DAILY 11/11/23 05/05/24 duloxetine 30 mg capsule,delayed 30 mg PO DAILY 04/20/24 05/05/24 release Allergies Allergy/AdvReac Type Severity Reaction Status Date / Time acetaminophen Allergy Mild Verified 04/22/24 20:13 [From Darvocet-N] oxycodone [From Percocet] Allergy Mild Verified 04/22/24 20:13 propoxyphene Allergy Mild Verified 04/22/24 20:13 [From Darvocet-N] bupropion [From Wellbutrin] Allergy Verified 04/22/24 20:13 Review of Systems Status of ROS: Reports: 10 or more systems reviewed and unremarkable except as noted in History and below Const: Reports: fatigue; Denies: fever or chills Eyes: Denies: change in vision or blurry vision ENMT: Denies: throat pain, neck pain or nasal congestion Cardio: Reports: lightheadedness and shortness of breath with exertion; Denies: chest pain, palpitations, edema or swelling of feet/ankles Resp: Reports: shortness of breath; Denies: cough or wheezing GI: Denies: abdominal pain, nausea, vomiting or diarrhea : Denies: painful urination or urinary frequency Musculo: Denies: neck pain Integ/Breast: Reports: change in breast shape (Scabbing on his abdomen); Denies: rash or new lesion Neuro: Denies: headache or numbness in extremities Endo: Reports: fatigue Allergy/Immuno: Denies: wheezing PFSH PFSH Surgical History Amputated toe of left foot ?S98.132A - Complete traumatic amputation of one left lesser toe, initial encounter (ICD-10) Cervical vertebral fusion ?M43.22 - Fusion of spine, cervical region (ICD-10) S/P right rotator cuff repair ?Z98.890 - Other specified postprocedural states (ICD-10) History of cholecystectomy ?Z90.49 - Acquired absence of other specified parts of digestive tract (ICD-10) History of appendectomy ?Z90.49 - Acquired absence of other specified parts of digestive tract (ICD-10) Gastric bypass status for obesity ?Z98.84 - Bariatric surgery status (ICD-10) Social History Smoking Status: Never smoker Do you use any of these nicotine containing products: None Second hand tobacco smoke exposure: No How often do you have a drink containing alcohol: 2-3 times a week How many standard drinks containing alcohol do you have on a typical day: 1 or 2 How often do you have six or more drinks on one occasion: Never AUDIT-C Alcohol total score: 3 Non-prescribed substance use: denies use service: No Exam Narrative: Exam Narrative: Patient is alert and oriented and not in any acute distress. Vital signs appear normal with normal blood pressure at 0140 systolic. Patient is alert and oriented. Somewhat anxious. Transiently tearful. EOM is full and pupils are equal round reactive. Face symmetrical. Head is atraumatic normocephalic. Neck is supple. Heart is with regular rate and rhythm and lungs are clear bilaterally. Abdomen is soft. Be very mild discomfort diffusely but rebound tenderness. Healing scabs noted over the umbilicus and superiorly to this area over an old abdominal scar. Lower extremities show no calf tenderness no erythema. Pedal pulses are intact and symmetrical. Const: Vital Signs, click to edit/add: Vital Signs - 24 hr 05/05/24 13:58 05/05/24 14:21 05/05/24 14:30 Temperature 97.8 F Pulse Rate 97 92 Pulse Rate [Pulse Oximeter] 112 H Respiratory Rate 20 Blood Pressure Blood Pressure [Ri ght Upper Arm] 95/55 L Pulse Oximetry 93 96 95 Oxygen Delivery Me thod Room Air 05/05/24 14:31 05/05/24 14:40 05/05/24 14:45 Temperature Pulse Rate 93 92 Pulse Rate [Pulse Oximeter] Respiratory Rate Blood Pressure 125/78 Blood Pressure [Ri ght Upper Arm] Pulse Oximetry 96 94 97 Oxygen Delivery Me thod 05/05/24 14:52 05/05/24 15:00 05/05/24 15:01 Temperature Pulse Rate Pulse Rate [Pulse Oximeter] Respiratory Rate Blood Pressure Blood Pressure [Ri ght Upper Arm] Pulse Oximetry 95 94 92 Oxygen Delivery Me thod 05/05/24 15:10 05/05/24 15:20 05/05/24 15:30 Temperature Pulse Rate Pulse Rate [Pulse Oximeter] Respiratory Rate Blood Pressure Blood Pressure [Ri ght Upper Arm] Pulse Oximetry 95 87 L 95 Oxygen Delivery Me thod 05/05/24 15:31 05/05/24 15:40 05/05/24 16:16 Temperature Pulse Rate Pulse Rate [Pulse Oximeter] Respiratory Rate Blood Pressure Blood Pressure [Ri ght Upper Arm] Pulse Oximetry 93 94 97 Oxygen Delivery Me thod 05/05/24 16:20 05/05/24 16:30 05/05/24 16:31 Temperature Pulse Rate Pulse Rate [Pulse Oximeter] Respiratory Rate Blood Pressure Blood Pressure [Ri ght Upper Arm] Pulse Oximetry 95 97 95 Oxygen Delivery Me thod 05/05/24 16:40 Temperature Pulse Rate Pulse Rate [Pulse Oximeter] Respiratory Rate Blood Pressure Blood Pressure [Ri ght Upper Arm] Pulse Oximetry 94 Oxygen Delivery Me thod Documenting provider has reviewed patient's vital signs: yes Course Course ED Course: Differential diagnosis includes but is not limited to PE, acute coronary event, arrhythmia, urinary tract infection, pneumonia, anxiety, lack of food intake. At this time will place IV and give 500 mL normal saline. Will allow patient to eat his lungs initial troponin is negative. Other tests include an EKG, flow nurse, CBC, comprehensive, urinalysis, CRP, D-dimer Reevaluation(s) Reevaluation #1: Initial troponin is negative as is the D-dimer. No evidence of UTI but patient does have 3+ urinary ketones with a blood sugar of 187. LFTs within normal limits as is white count. Chest x-ray without evidence of widened mediastinum, infiltrates. EKG reassuring as well. Patient will be receiving food at this time. Reevaluation #2: Patient noted to be feeling better after eating. Blood pressure is 140. Will recheck troponin. Vital Signs Vital signs: Initial Vital Signs Temperature 97.8 F 05/05/24 13:58 Temperature Source Temporal Artery Scan 05/05/24 13:58 Pulse Rate 112 H 05/05/24 13:58 Respiratory Rate 05/05/24 13:58 Blood Pressure 95/55 L 05/05/24 13:58 Blood Pressure Mean 68 L 05/05/24 13:58 Blood Pressure Position Sitting 05/05/24 13:58 Pulse Oximetry 93 05/05/24 13:58 Oxygen Delivery Method Room Air 05/05/24 13:58 Vital Signs Temperature 97.8 F 05/05/24 13:58 Pulse Rate 112 H 05/05/24 13:58 Respiratory Rate 20 05/05/24 13:58 Blood Pressure 95/55 L 05/05/24 13:58 Pulse Oximetry 93 05/05/24 13:58 Oxygen Delivery Method Room Air 05/05/24 13:58 Temperature 97.8 F 05/05/24 13:58 Pulse Rate 92 05/05/24 14:45 Respiratory Rate 20 05/05/24 13:58 Blood Pressure 125/78 05/05/24 14:31 Pulse Oximetry 94 05/05/24 16:40 Oxygen Delivery Method Room Air 05/05/24 13:58 Medications Administered Medications: Discontinued Medications Generic Name Dose Route Start Last Admin Trade Name Freq PRN Reason Stop Dose Admin Sodium Chloride 500 mls @ 500 mls/hr 05/05/24 14:32 05/05/24 16:19 0.9 % Sodium Chloride 500 Ml IV 05/05/24 15:31 Infused .Q1H ONE Infusion MDM - Syncope MDM Narrative Medical decision making narrative: 1. Hypotensive episode -patient with normal blood pressure here in the emergency room. Did give him 500 mL of normal saline. EKG and troponin negative x2. He is feeling much improved after eating. He had not eaten or had much to drink all morning. Blood pressure now 142 systolic. I am wondering if he had a vasovagal reaction to lack of food and fluid. He notes that he still has lightheadedness but this is been going on for quite some time and I do suggest possible follow-up with Cardiology or Neurology for further evaluation. At this time he is anxious to go as he has [employer]. While presentation shows him to be tachycardic this has quickly resolved with fluids and eating. 2. Hyperglycemia -patient did take his metformin this morning but no insulin. He will need to monitor. 3. History of coronary artery disease -EKGs and troponins reassuring. 4. Disposition -home at this time. Return/seek medical attention for worsening symptoms. At this time he is much improved after fluids and eating. White count is normal, CRP is normal, LFTs normal. Urinalysis without evidence of UTI. No evidence of ketones. Medical Records Attestation: I reviewed the patient's medical records. Lab Data Attestation: I reviewed the patient's lab results. Labs: Lab Results 05/05/24 05/05/24 05/05/24 Range/Units 14:34 14:50 15:08 WBC 6.72 (4.50-11.00) K/uL RBC 4.62 (4.30-5.90) m/uL Hgb 12.5 L (13.5-17.5) gm/dL Hct 39.6 (37.0-53.0) % MCV 86 (80-100) fL MCH 27 (26-34) pg MCHC 32 (32-36) gm/dL RDW Coeff of Lou 13.1 (11.5-15.5) % Plt Count 152 (140-440) K/uL Neut % (Auto) 66.1 (42.0-72.0) % Lymph % (Auto) 23.1 (20-44) % Merrick % (Auto) 8.9 (0.0-11.0) % Eos % (Auto) 1.5 (0.0-7.0) % Baso % (Auto) 0.3 (0.0-3.0) % Neut # (Auto) 4.44 (1.7-7.0) K/uL Lymph # (Auto) 1.55 (0.90-2.90) K/uL Merrick # (Auto) 0.60 (0.00-0.90) K/UL Eos # (Auto) 0.10 (0.00-0.50) K/uL Baso # (Auto) 0.02 (0.00-0.30) K/uL Abs Immat Gran (auto) 0.01 (0.00-0.30) K/uL Imm/Tot Granulo (auto) 0.1 % D-Dimer Quant (PE/DVT) 0.29 (0.00-0.50) ug/ml Sodium 135 (135-149) mmol/L Potassium 3.9 (3.6-5.1) mmol/L Chloride 106 (96-114) mmol/L Carbon Dioxide 21 (20-32) mmol/L Anion Gap 8 (7-15) mEq/L BUN 27 (7-30) mg/dL Creatinine 1.5 (0.5-1.5) mg/dL Estimated Creat Clear 57.12 Estimated GFR 51 ml/min Glucose 187 H (60-115) mg/dL Calcium 8.7 (8.4-10.6) mg/dL Total Bilirubin 0.9 (0.1-1.5) mg/dL AST 27 (12-35) U/L ALT 22 (4-50) U/L Alkaline Phosphatase 42 (40-150) U/L C-Reactive Protein < 0.5 L (0.5-1.0) mg/dL Total Protein 6.6 (6.0-8.3) g/dL Albumin 4.0 (3.3-5.0) g/dL Urine Color Yellow (Yellow) Urine Appearance Clear (Clear) Urine pH 5.5 (5.0-8.5) Ur Specific [place] 1.015 (1.000-1.030) Urine Protein Trace A (Negative) Urine Glucose (UA) 3+ A (Negative) Urine Ketones Trace A (Negative) Urine Blood Negative (Negative) Urine Nitrite Negative (Negative) Urine Bilirubin Negative (Negative) Urine Urobilinogen 1.0 (0.2-1.0) Ur Leukocyte Esterase Negative (Negative) Urine RBC 0-2 (0-2) Urine WBC 0-2 (0-5) Ur Squamous Epith Cells None (None-Few) Urine Bacteria None (None) POC Troponin I 0.01 (0.01-0.04) ng/ml 05/05/24 Range/Units 16:38 WBC (4.50-11.00) K/uL RBC (4.30-5.90) m/uL Hgb (13.5-17.5) gm/dL Hct (37.0-53.0) % MCV (80-100) fL MCH (26-34) pg MCHC (32-36) gm/dL RDW Coeff of Lou (11.5-15.5) % Plt Count (140-440) K/uL Neut % (Auto) (42.0-72.0) % Lymph % (Auto) (20-44) % Merrick % (Auto) (0.0-11.0) % Eos % (Auto) (0.0-7.0) % Baso % (Auto) (0.0-3.0) % Neut # (Auto) (1.7-7.0) K/uL Lymph # (Auto) (0.90-2.90) K/uL Merrick # (Auto) (0.00-0.90) K/UL Eos # (Auto) (0.00-0.50) K/uL Baso # (Auto) (0.00-0.30) K/uL Abs Immat Gran (auto) (0.00-0.30) K/uL Imm/Tot Granulo (auto) % D-Dimer Quant (PE/DVT) (0.00-0.50) ug/ml Sodium (135-149) mmol/L Potassium (3.6-5.1) mmol/L Chloride (96-114) mmol/L Carbon Dioxide (20-32) mmol/L Anion Gap (7-15) mEq/L BUN (7-30) mg/dL Creatinine (0.5-1.5) mg/dL Estimated Creat Clear Estimated GFR ml/min Glucose (60-115) mg/dL Calcium (8.4-10.6) mg/dL Total Bilirubin (0.1-1.5) mg/dL AST (12-35) U/L ALT (4-50) U/L Alkaline Phosphatase (40-150) U/L C-Reactive Protein (0.5-1.0) mg/dL Total Protein (6.0-8.3) g/dL Albumin (3.3-5.0) g/dL Urine Color (Yellow) Urine Appearance (Clear) Urine pH (5.0-8.5) Ur Specific [place] (1.000-1.030) Urine Protein (Negative) Urine Glucose (UA) (Negative) Urine Ketones (Negative) Urine Blood (Negative) Urine Nitrite (Negative) Urine Bilirubin (Negative) Urine Urobilinogen (0.2-1.0) Ur Leukocyte Esterase (Negative) Urine RBC (0-2) Urine WBC (0-5) Ur Squamous Epith Cells (None-Few) Urine Bacteria (None) POC Troponin I 0.01 (0.01-0.04) ng/ml Imaging Data Chest x-ray: Attestation: I have reviewed the pertinent imaging results. My impression: No infiltrates. Radiologist's impression: Cardiovascular and mediastinum: Stable cardiomediastinal silhouette. Lungs and pleural spaces: Lung volumes are low. Mild bibasilar atelectasis. No pleural effusions or pneumothorax. Bones and soft tissues: Cervical spinal fusion hardware. Old rib fractures. IMPRESSION: Low lung volumes with mild bibasilar atelectasis. ECG Data Attestation: I personally reviewed and interpreted this ECG as follows: Prior ECG tracings: available for review Interpretation: EKG by my read shows sinus rhythm at a rate of 97. 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 Compared to previous this is not significantly changed. EKG 2. By my read unchanged from previous and Naren of morphology. Heart rate improved. Discharge Plan Discharge Clinical Impression: Postural hypotension, Near syncope Patient Disposition: Home, Self-Care Condition: Improved Additional Instructions: Please eat in the morning when you awaken and make sure you have good fluids throughout the day. Recommend follow-up with your primary for ongoing symptoms. No evidence of a heart attack, PE, pneumonia, infection today. Return to the ER for worsening symptoms. Prescriptions: No Action oxycodone 5 mg tablet 10 mg PO HS duloxetine 30 mg capsule,delayed release(DR/EC) 30 mg PO DAILY atorvastatin 40 mg tablet 40 mg PO QPM gabapentin 300 mg capsule 300 mg PO 3XD metformin 500 mg tablet extended release 24 hr 1,000 mg PO BID insulin lispro 100 unit/mL insulin pen 6 - 8 unit subcut 3XD insulin glargine [Lantus Solostar U-100 Insulin] 100 unit/mL (3 mL) insulin pen 20 unit subcut QPM clopidogrel 75 mg tablet 75 mg PO DAILY Follow Up/Referrals: Lakesha Khan MD [Primary Care Provider] - Stand Alone Forms: [facility] Info Instructions
--- NOTE | 2024-05-05 14:32 | CRLHL7_ITS ---
For Patients: As a result of the Cures Act, medical imaging exams and procedure reports are released immediately into your electronic medical record. You may view this report before your referring provider. If you have questions, please contact your health care provider. INDICATION: Near-syncope. TECHNIQUE: Chest 1 view. COMPARISON: 07/26/2023. FINDINGS: Cardiovascular and mediastinum: Stable cardiomediastinal silhouette. Lungs and pleural spaces: Lung volumes are low. Mild bibasilar atelectasis. No pleural effusions or pneumothorax. Bones and soft tissues: Cervical spinal fusion hardware. Old rib fractures. IMPRESSION: Low lung volumes with mild bibasilar atelectasis. Dictated by Jim Mai MD @ 05/05/2024 3:58:40 PM (Electronically Signed)
[2024-05-05 15:04] LABS: Basophils Absolute Auto 0.02 K/uL (0.00-0.30); Basophils Percent Auto 0.3 % (0.0-3.0); Eosinophils Percent Auto 1.5 % (0.0-7.0); Hematocrit 39.6 % (37.0-53.0); Hemoglobin* 12.5 gm/dL (13.5-17.5); Immature Granulocytes Abs Auto 0.01 K/uL (0.00-0.30); Immature Granulocytes Pct Auto 0.1 %; Lymphocytes Absolute Auto 1.55 K/uL (0.90-2.90); Lymphocytes Percent Auto 23.1 % (20-44); Mean Corpuscular HGB Conc 32 gm/dL (32-36); Mean Corpuscular Hemoglobin 27 pg (26-34); Mean Corpuscular Volume 86 fL (80-100); Monocytes Percent Auto 8.9 % (0.0-11.0); Neutrophils Absolute Auto 4.44 K/uL (1.7-7.0); Neutrophils Percent Auto 66.1 % (42.0-72.0); Platelet Count* 152 K/uL (140-440); RDW Coefficient of Variation % 13.1 % (11.5-15.5); Red Blood Count 4.62 m/uL (4.30-5.90); White Blood Count* 6.72 K/uL (4.50-11.00)
[2024-05-05 15:07] LABS: Slide Review Reflex No
[2024-05-05] MEDS: 0.9 % SODIUM CHLORIDE 500 ML 500 ML IV (15:08)
[2024-05-05 15:17] LABS: Troponin, Point-of-Care* 0.01 ng/ml (0.01-0.04)
[2024-05-05 15:19] LABS: Chloride* 106 mmol/L (96-114)
[2024-05-05 15:20] LABS: Potassium* 3.9 mmol/L (3.6-5.1); Sodium* 135 mmol/L (135-149)
[2024-05-05 15:22] LABS: Creatinine* 1.5 mg/dL (0.5-1.5); Est. Creatinine Clearance* 57.12; Estimated Glomerular Filt Rate 51 ml/min
[2024-05-05 15:23] LABS: Alanine Aminotransferase* 22 U/L (4-50); Alkaline Phosphatase* 42 U/L (40-150); Anion Gap 8 mEq/L (7-15); Aspartate Amino Transferase* 27 U/L (12-35); Bilirubin Total* 0.9 mg/dL (0.1-1.5); Blood Urea Nitrogen* 27 mg/dL (7-30); Carbon Dioxide* 21 mmol/L (20-32); Glucose* 187 mg/dL (60-115); Total Protein* 6.6 g/dL (6.0-8.3)
[2024-05-05 15:24] LABS: Calcium* 8.7 mg/dL (8.4-10.6)
[2024-05-05 15:30] LABS: Appearance Urine Clear (Clear); Bilirubin Urine Negative (Negative); Blood Urine Negative (Negative); Color Urine Yellow (Yellow); Glucose Urine 3+ (Negative); Ketones Urine Trace (Negative); Leukocyte Esterase Urine Negative (Negative); Nitrite Urine Negative (Negative); Protein Urine Trace (Negative); Specific Gravity Urine 1.015 (1.000-1.030); pH Urine 5.5 (5.0-8.5)
[2024-05-05 15:35] LABS: C Reactive Protein* < 0.5 mg/dL (0.5-1.0)
[2024-05-05 15:44] LABS: D Dimer Quantitative* 0.29 ug/ml (0.00-0.50)
[2024-05-05 16:12] LABS: RBC Urine 0-2 (0-2); WBC Urine 0-2 (0-5)
[2024-05-05 17:14] LABS: Troponin, Point-of-Care* 0.01 ng/ml (0.01-0.04)
== END 2024-05-05 17:19 | disposition home or self-care (01) ==
PROVIDERS: Emergency Provider Family Medicine; PCP Family Medicine
DX: I95.1 Orthostatic hypotension (principal)
CPT/HCPCS: 36415; 71045; 80053; 81001; 84484; 85025; 85379; 86140; 93005; 96360; 99284; 99285; J7030

== ENCOUNTER 2024-07-14 12:10 | Outpatient (CLI) | payer MEDICARE, SELFPAY | END 2024-07-14 12:11 | disposition home or self-care (01) | PROVIDERS: PCP Family Medicine; Visit Provider Family Medicine | DX: R20.0 Anesthesia of skin (principal); R07.89 Other chest pain; M79.602 Pain in left arm; W86.1XXA Exposure to industrial wiring, appliances and electrical machinery, initial encounter; Y92.512 Supermarket, store or market as the place of occurrence of the external cause | CPT/HCPCS: A0425; A0427 ==

== ENCOUNTER 2024-07-14 12:40 | Emergency (ER) | payer MEDICARE, SELFPAY ==
[2024-07-14] VITALS (28 sets, daily range): BP systolic 111–151; BP diastolic 76–97; PULSE 94–110; RESP 20; TEMP 36.9; O2SAT 93–99
--- NOTE | 2024-07-14 12:42 | ED.GENADULT ---
HPI - General Adult General Time Seen by Provider: 12:42 Date Seen: 07/14/24 Chief complaint: Weakness Stated complaint: Possible electrocution Time Seen by Provider: 07/14/24 12:41 Source: patient, RN notes reviewed and old records reviewed Mode of arrival: ambulatory Limitations: no limitations History of Present Illness HPI narrative: 68-year-old female who presents today with possible electrical injury. Patient says he was at work, touched a cooler and had electrical sensation of the left arm as well as some lightheadedness, also noted that his left hand turned ?blue. ? He says he thinks he saw a shock between his arm and the cooler as well. Denies loss of consciousness, denies chest pain although does say he felt some ?zinging? in his chest. EMS was called. Per EMS report, no electrical current through the cooler when checked and no other individuals with similar symptoms today. Related Data Home Medications ?Medication ?Instructions ?Recorded ?Confirmed atorvastatin 40 mg tablet 40 mg PO HS 01/08/23 07/14/24 gabapentin 300 mg capsule 1,200 mg PO BID 01/08/23 07/14/24 insulin glargine 100 unit/mL (3 20 unit subcut HS 01/08/23 07/14/24 mL) subcutaneous pen (Lantus Solostar U-100 Insulin) insulin lispro 100 unit/mL 6 - 10 unit subcut TIDWM 01/08/23 07/14/24 subcutaneous pen metformin 500 mg tablet,extended 1,000 mg PO BIDWM 01/08/23 07/14/24 release 24 hr oxycodone 5 mg tablet 5 - 10 mg PO HS PRN 05/17/23 07/14/24 clopidogrel 75 mg tablet 75 mg PO DAILY 11/11/23 07/14/24 duloxetine 30 mg capsule,delayed 30 mg PO DAILY 04/20/24 07/14/24 release insulin lispro 100 unit/mL 1 sliding scale dose subcut 05/18/24 05/18/24 subcutaneous cartridge (Humalog USEASDIRECTD U-100 Insulin) acetaminophen 500 mg tablet 500 mg PO TID PRN 07/14/24 07/14/24 aspirin 81 mg tablet,delayed 81 mg PO DAILY 07/14/24 07/14/24 release (Adult Low Dose Aspirin) empagliflozin 10 mg tablet 10 mg PO DAILY 07/14/24 07/14/24 (Jardiance) multivitamin (Daily Multi-Vitamin 1 tab PO DAILY 07/14/24 07/14/24 tablet) nitroglycerin 0.4 mg sublingual 0.4 mg sublingual Q5-15M PRN 07/14/24 07/14/24 tablet Allergies Allergy/AdvReac Type Severity Reaction Status Date / Time acetaminophen (From Allergy Mild Verified 07/14/24 14:11 Darvocet-N) oxycodone (From Percocet) Allergy Mild Verified 07/14/24 14:11 propoxyphene (From Allergy Mild Verified 07/14/24 14:11 Darvocet-N) bupropion (From Wellbutrin) Allergy Verified 07/14/24 14:11 [facility] Surgical History Amputated toe of left foot ?S98.132A - Complete traumatic amputation of one left lesser toe, initial encounter (ICD-10) Cervical vertebral fusion ?M43.22 - Fusion of spine, cervical region (ICD-10) S/P right rotator cuff repair ?Z98.890 - Other specified postprocedural states (ICD-10) History of cholecystectomy ?Z90.49 - Acquired absence of other specified parts of digestive tract (ICD-10) History of appendectomy ?Z90.49 - Acquired absence of other specified parts of digestive tract (ICD-10) Gastric bypass status for obesity ?Z98.84 - Bariatric surgery status (ICD-10) Social History Smoking Status: Never smoker Do you use any of these nicotine containing products: None Second hand tobacco smoke exposure: No How often do you have a drink containing alcohol: 2-3 times a week How many standard drinks containing alcohol do you have on a typical day: 1 or 2 How often do you have six or more drinks on one occasion: Never AUDIT-C Alcohol total score: 3 Non-prescribed substance use: denies use service: No Exam Narrative: Exam Narrative: General: Well-developed and well-nourished, no acute distress Head: Atraumatic and normocephalic Eyes: Pupils are equal reactive, extraocular motions intact, conjunctiva clear ENT: External nose and ears are normal, posterior pharynx without erythema or exudate Neck: No midline cervical tenderness, full spontaneous range of motion the neck, trachea midline, no adenopathy Heart: Tachycardic rate and rhythm no murmurs or thrills Lungs: Clear to auscultation bilaterally without wheezes or crackles Abdomen: Soft, nontender, nondistended with active bowel sounds Musculoskeletal: No tenderness, deformity, or edema Neurologic: Awake, alert, and oriented x3, 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 and difficulty with fine motor movements on the left, slight drift of the left leg Psych: Mood and affect are appropriate Skin: No rashes NIH stroke scale 3- left arm drift, left leg drift, left arm ataxia Const: Vital Signs, click to edit/add: Vital Signs - 24 hr 07/14/24 12:42 07/14/24 12:58 07/14/24 12:59 Temperature 98.5 F Pulse Rate 103 H 103 H Pulse Rate [Pulse Oximeter] 101 H Respiratory Rate 20 Blood Pressure 111/81 Blood Pressure [Le ft Upper Arm] 139/89 Pulse Oximetry 96 96 96 Oxygen Delivery Me thod Room Air 07/14/24 13:00 07/14/24 13:02 07/14/24 13:12 Temperature Pulse Rate 103 H 106 H Pulse Rate [Pulse Oximeter] Respiratory Rate Blood Pressure 137/79 Blood Pressure [Le ft Upper Arm] Pulse Oximetry 93 94 95 Oxygen Delivery Me thod 07/14/24 13:17 07/14/24 13:19 07/14/24 13:24 Temperature Pulse Rate 110 H 100 101 H Pulse Rate [Pulse Oximeter] Respiratory Rate Blood Pressure 134/79 129/82 Blood Pressure [Le ft Upper Arm] Pulse Oximetry 95 97 94 Oxygen Delivery Me thod 07/14/24 13:40 07/14/24 13:41 07/14/24 13:45 Temperature Pulse Rate 100 101 H 102 H Pulse Rate [Pulse Oximeter] Respiratory Rate Blood Pressure 117/76 Blood Pressure [Le ft Upper Arm] Pulse Oximetry 95 96 94 Oxygen Delivery Me thod 07/14/24 13:47 07/14/24 14:02 07/14/24 14:04 Temperature Pulse Rate 100 101 H 102 H Pulse Rate [Pulse Oximeter] Respiratory Rate Blood Pressure 119/80 128/91 H Blood Pressure [Le ft Upper Arm] Pulse Oximetry 97 97 99 Oxygen Delivery Me thod 07/14/24 14:15 07/14/24 14:17 07/14/24 14:30 Temperature Pulse Rate 96 95 96 Pulse Rate [Pulse Oximeter] Respiratory Rate Blood Pressure 141/76 H Blood Pressure [Le ft Upper Arm] Pulse Oximetry 97 98 98 Oxygen Delivery Me thod 07/14/24 14:32 07/14/24 14:45 07/14/24 14:47 Temperature Pulse Rate 94 94 Pulse Rate [Pulse Oximeter] Respiratory Rate Blood Pressure 126/85 141/80 H Blood Pressure [Le ft Upper Arm] Pulse Oximetry 97 97 Oxygen Delivery Me thod 07/14/24 15:44 07/14/24 15:46 07/14/24 16:00 Temperature Pulse Rate 108 H 103 H 95 Pulse Rate [Pulse Oximeter] Respiratory Rate Blood Pressure 151/96 H Blood Pressure [Le ft Upper Arm] Pulse Oximetry 99 98 97 Oxygen Delivery Me thod Course Course ED Course: Reviewed most recent cardiology visit from June 18 which was follow-up from coronary disease status post stenting in 2022, also history of SVT. Patient on Jardiance, Plavix, Lipitor, aspirin, previously on metoprolol but not currently. Patient seen and examined on arrival with concern for electrical shock. On exam, patient is in sinus rhythm, sensation of the left arm intact but digital marketing program manager is weak, flexion and extension at the elbow week as well. Sensation intact throughout the upper extremities. Slight drift left leg. Concern for possible electrical injury although other than patient is seen he saw electroshock, no other evidence for malfunction of the color that he says shocked him. Labs ordered will continue to observe. EKG independently interpreted by me performed at 12:47 p.m. demonstrates sinus tachycardia rate 105, right bundle-branch block, no acute ischemic changes, DC 194, QTC 491, QRS 156. Compared to prior of November 2023, rate has increased. Reevaluation(s) Time of Reevaluation #1: 13:19 Reevaluation #1: Due to concern for left arm weakness and left leg weakness in setting electrical shock but no objective findings for elective soft, concern for possible TIA acute stroke. Patient reexamined continues to have left arm weakness. CT scan is ordered. Ambulated patient in the [place], he was weak and appeared a little off balance, became lightheaded and had a syncopal like episode although did not completely lose tone. He did not fall and was eased into a wheelchair, became more alert shortly thereafter. Concerned that initial shock like pain in left arm may not represent electrical injury but may be from central neurologic process including TA or CVA, especially ongoing left arm and leg weakness. Stroke code activated. Time of Reevaluation #2: 13:27 Reevaluation #2: Care discussed with Dr. Wong stroke neurology, feels that because of shooting pain in the arm, symptoms are not likely to be from acute CVA and patient would not be a candidate for lytics, even after discussion of the left arm and leg weakness and gait abnormality, and recommends MRI of the brain and cervical spine. I feel that is patient does have objective left arm and left leg weakness with gait abnormality, will continue with CT/CTA and perform MRI afterward if CT and CTA are negative. I did contact MRI to see if MRI could be done more quickly or within a reasonable time frame, there is a several hour delay and so will proceed with CT. Time of Reevaluation #3: 14:07 Reevaluation #3: CT scan of the head and panel interpreted by me without acute hemorrhage, no masses noted. There does appears to be calcification of the basilar and vertebral arteries. Additional Reevaluation(s): 14:25 labs independently interpreted by me with normal CBC, basic panel reassuring, troponin 0.02 and will be repeated. 15:19 reviewed radiology interpretation of CT scan of the head as well as CTA of the head neck, diffuse atherosclerotic disease but no acute findings. 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 Discussed disposition, if MRI is negative, consider admission for possible TIA. 16:31 MRI of the brain negative for acute findings, MRI and cervical spine shows some stressed changes the posterior elements without cord abnormalities. Patient's symptoms are resolved, he would like to go home and is stable ambulating, family member who is with him can stay with him. Patient was evaluated by Stroke Neurology who felt patient was stable for discharge Vital Signs Vital signs: Initial Vital Signs Temperature 98.5 F 07/14/24 12:42 Temperature Source Temporal Artery Scan 07/14/24 12:42 Pulse Rate 101 H 07/14/24 12:42 Respiratory Rate 20 12/03/24 12:42 Blood Pressure 139/89 07/14/24 12:42 Blood Pressure Mean 105 07/14/24 12:42 Blood Pressure Position Supine 07/14/24 12:42 Pulse Oximetry 96 07/14/24 12:42 Oxygen Delivery Method Room Air 07/14/24 12:42 Vital Signs Temperature 98.5 F 07/14/24 12:42 Pulse Rate 101 H 07/14/24 12:42 Respiratory Rate 20 07/14/24 12:42 Blood Pressure 139/89 07/14/24 12:42 Pulse Oximetry 96 07/14/24 12:42 Oxygen Delivery Method Room Air 07/14/24 12:42 Temperature 98.5 F 07/14/24 12:42 Pulse Rate 95 07/14/24 16:00 Respiratory Rate 20 07/14/24 12:42 Blood Pressure 151/96 H 07/14/24 15:44 Pulse Oximetry 97 07/14/24 16:00 Oxygen Delivery Method Room Air 07/14/24 12:42 Medical Decision Making Lab Data Labs: Lab Results 07/14/24 07/14/24 Range/Units 12:55 13:05 WBC 6.01 (4.50-11.00) K/uL RBC 5.05 (4.30-5.90) m/uL Hgb 12.6 L (13.5-17.5) gm/dL Hct 41.4 (37.0-53.0) % MCV 82 (80-100) fL MCH 25 L (26-34) pg MCHC 30 L (32-36) gm/dL RDW Coeff of Lou 13.8 (11.5-15.5) % Plt Count 154 (140-440) K/uL Neut % (Auto) 60.2 (42.0-72.0) % Lymph % (Auto) 28.3 (20-44) % Marshall % (Auto) 8.5 (0.0-11.0) % Eos % (Auto) 2.5 (0.0-7.0) % Baso % (Auto) 0.3 (0.0-3.0) % Neut # (Auto) 3.62 (1.7-7.0) K/uL Lymph # (Auto) 1.70 (0.90-2.90) K/uL Marshall # (Auto) 0.50 (0.00-0.90) K/UL Eos # (Auto) 0.15 (0.00-0.50) K/uL Baso # (Auto) 0.02 (0.00-0.30) K/uL Abs Immat Gran (auto) 0.01 (0.00-0.30) K/uL Imm/Tot Granulo (auto) 0.2 % INR 1.01 (0.91-1.10) APTT 29 (23-33) Seconds Sodium 138 (135-149) mmol/L Potassium 4.0 (3.6-5.1) mmol/L Chloride 106 (96-114) mmol/L Carbon Dioxide 24 (20-32) mmol/L Anion Gap 8 (7-15) mEq/L BUN 24 (7-30) mg/dL Creatinine 1.3 (0.5-1.5) mg/dL Estimated GFR 60 ml/min Glucose 260 H (60-115) mg/dL Calcium 9.2 (8.4-10.6) mg/dL POC Troponin I 0.02 (0.01-0.04) ng/ml Discharge Plan Discharge Clinical Impression: Left arm weakness, Syncope, Electric injury Type II diabetes mellitus Qualifiers: 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: with 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 use Diabetes mellitus complication status: without complication Qualified Code(s): E11.9 - Type 2 diabetes mellitus without complications Patient Disposition: Home, Self-Care Condition: Stable Instructions: Weakness (ED) Additional Instructions: Continue your current medications Activity Level: Activity as Tolerated Discharge Diet: Regular Prescriptions: No Action oxycodone 5 mg tablet 5 - 10 mg PO HS PRN duloxetine 30 mg capsule,delayed release(DR/EC) 30 mg PO DAILY Humalog U-100 Insulin 100 unit/mL cartridge 1 sliding scale dose subcut USEASDIRECTD atorvastatin 40 mg tablet 40 mg PO HS gabapentin 300 mg capsule 1,200 mg PO BID metformin 500 mg tablet extended release 24 hr 1,000 mg PO BIDWM insulin lispro 100 unit/mL insulin pen 6 - 10 unit subcut TIDWM insulin glargine [Lantus Solostar U-100 Insulin] 100 unit/mL (3 mL) insulin pen 20 unit subcut HS clopidogrel 75 mg tablet 75 mg PO DAILY acetaminophen 500 mg tablet 500 mg PO TID PRN aspirin [Adult Low Dose Aspirin] 81 mg tablet,delayed release (DR/EC) 81 mg PO DAILY Jardiance 10 mg tablet 10 mg PO DAILY multivitamin [Daily Multi-Vitamin] Tablet 1 tab PO DAILY nitroglycerin 0.4 mg tablet, sublingual 0.4 mg sublingual Q5-15M PRN Rx Instructions: do not exceed 3 doses per episode Follow Up/Referrals: Lakesha Khan MD [Primary Care Provider] - Stand Alone Forms: [employer] Info Instructions
--- NOTE | 2024-07-14 13:12 | CRLHL7_ITS ---
For Patients: As a result of the Century Cures Act, medical imaging exams and procedure reports are released immediately into your electronic medical record. You may view this report before your referring provider. If you have questions, please contact your health care provider. INDICATION: Possible electrocution, left arm and leg weakness.. COMPARISON: None. TECHNIQUE: CT of the brain / head without intravenous contrast. Multiplanar axial, coronal, and sagittal reformats were reconstructed. FINDINGS: No intracranial hemorrhage. Mild age-related parenchymal volume loss. No acute or subacute cortically based infarct. Scattered white matter hypodensities may be related to chronic microvascular ischemia. Heavy atherosclerotic vascular calcifications. No mass or mass effect. Normal ventricles. No skull fractures. No worrisome focal bone lesion. IMPRESSION: No acute appearing intracranial findings. Discussed with Dr. Wong at 1:54 p.m. on 07/14/2024. Please note that all CT scans at this facility use dose modulation, iterative reconstruction, and/or weight-based dosing when appropriate to reduce radiation dose to as low as reasonably achievable. Dictated by María Whitman MD @ 07/14/2024 1:54:51 PM (Electronically Signed)
--- NOTE | 2024-07-14 13:12 | CRLHL7_ITS ---
For Patients: As a result of the Century Cures Act, medical imaging exams and procedure reports are released immediately into your electronic medical record. You may view this report before your referring provider. If you have questions, please contact your health care provider. CLINICAL HISTORY: Possible electrocution. TECHNIQUE: Standard helical CT image acquisition through the neck was performed after intravenous contrast bolus enhancement. 3D and MIP reconstructions were performed at a separate workstation and permanently archived. COMPARISON: None available. FINDINGS: The origins of the great vessels from the aortic arch are patent. The common carotid arteries are patent. No significant luminal stenoses of the proximal ICAs by NASCET criteria. The more distal cervical segments of the ICAs are patent. Yghd-ku-mtiimvtj stenosis of the origin of the dominant right vertebral artery. The origin of the hypoplastic left vertebral artery is patent. The more distal cervical vertebral arteries are patent. IMPRESSION: 1. Njlh-kd-wmdfmtdd stenosis at the origin of the dominant right vertebral artery. 2. Otherwise, patent cervical arterial vasculature without hemodynamically significant luminal stenosis. Please note that all CT scans at this facility use dose modulation, iterative reconstruction, and/or weight-based dosing when appropriate to reduce radiation dose to as low as reasonably achievable. Dictated by Bi Eduardo MD @ 07/14/2024 4:41:30 PM (Electronically Signed)
--- NOTE | 2024-07-14 13:12 | CRLHL7_ITS ---
For Patients: As a result of the Century Cures Act, medical imaging exams and procedure reports are released immediately into your electronic medical record. You may view this report before your referring provider. If you have questions, please contact your health care provider. CLINICAL HISTORY: Possible electrocution; left sided weakness. TECHNIQUE: Standard helical CT image acquisition through the head following the administration of intravenous contrast was performed. 3D and MIP reconstructions were performed at a separate workstation and permanently archived. COMPARISON: None available. FINDINGS: Scattered intracranial atherosclerotic disease without proximal large vessel occlusion or flow-limiting luminal stenosis. No evidence of cerebral aneurysm. No findings to suggest an arterial-venous shunting lesion. The major dural venous sinuses and deep venous system are patent. IMPRESSION: Scattered intracranial atherosclerotic disease without proximal large vessel occlusion or flow-limiting luminal stenosis. Please note that all CT scans at this facility use dose modulation, iterative reconstruction, and/or weight-based dosing when appropriate to reduce radiation dose to as low as reasonably achievable. Dictated by Bi Eduardo MD @ 07/14/2024 4:49:01 PM (Electronically Signed)
--- NOTE | 2024-07-14 13:20 | ED.NURSE ---
Pt is alert and oriented x3. GCS 15.
[2024-07-14 13:22] LABS: Basophils Absolute Auto 0.02 K/uL (0.00-0.30); Basophils Percent Auto 0.3 % (0.0-3.0); Eosinophils Absolute Auto 0.15 K/uL (0.00-0.50); Eosinophils Percent Auto 2.5 % (0.0-7.0); Hematocrit 41.4 % (37.0-53.0); Hemoglobin* 12.6 gm/dL (13.5-17.5); Immature Granulocytes Abs Auto 0.01 K/uL (0.00-0.30); Immature Granulocytes Pct Auto 0.2 %; Lymphocytes Percent Auto 28.3 % (20-44); Mean Corpuscular HGB Conc 30 gm/dL (32-36); Mean Corpuscular Hemoglobin 25 pg (26-34); Mean Corpuscular Volume 82 fL (80-100); Monocytes Percent Auto 8.5 % (0.0-11.0); Neutrophils Absolute Auto 3.62 K/uL (1.7-7.0); Neutrophils Percent Auto 60.2 % (42.0-72.0); Platelet Count* 154 K/uL (140-440); RDW Coefficient of Variation % 13.8 % (11.5-15.5); Red Blood Count 5.05 m/uL (4.30-5.90); White Blood Count* 6.01 K/uL (4.50-11.00)
[2024-07-14 13:25] LABS: Slide Review Reflex No
[2024-07-14 13:35] LABS: INR 1.01 (0.91-1.10); Prothrombin Time 13.9 Seconds
[2024-07-14 13:36] LABS: Partial Thromboplastin Time* 29 Seconds (23-33)
[2024-07-14 13:37] LABS: Blood Urea Nitrogen* 24 mg/dL (7-30); Carbon Dioxide* 24 mmol/L (20-32); Creatinine* 1.3 mg/dL (0.5-1.5); Estimated Glomerular Filt Rate 60 ml/min
[2024-07-14 13:38] LABS: Calcium* 9.2 mg/dL (8.4-10.6); Glucose* 260 mg/dL (60-115)
[2024-07-14 13:44] LABS: Troponin, Point-of-Care* 0.02 ng/ml (0.01-0.04)
[2024-07-14 13:45] LABS: Anion Gap 8 mEq/L (7-15); Chloride* 106 mmol/L (96-114); Sodium* 138 mmol/L (135-149)
--- NOTE | 2024-07-14 13:45 | ED.NURSE ---
Pt was ambulating in the [place] with MD and RN, Pt seemed to pass out. Wheelchair was brought over for pt, lowered pt t the wheelchair. Pt did not fall, did not hit his head.
--- NOTE | 2024-07-14 14:09 | CRLHL7_ITS ---
For Patients: As a result of the Century Cures Act, medical imaging exams and procedure reports are released immediately into your electronic medical record. You may view this report before your referring provider. If you have questions, please contact your health care provider. Indication Left leg weakness. TECHNIQUE: Multiplanar multisequence noncontrast MR images of the brain. COMPARISON: CT brain 07/14/2024. FINDINGS: Motion degrades multiple sequences. Mild diffuse cerebral volume loss. No mass effect or midline shift. Scattered FLAIR hyperintensities in the white matter and khushbu, typical for mild chronic microvascular ischemic changes. No diffusion restriction to suggest acute infarction. No intracranial hemorrhage or pathologic extra-axial fluid collection. The major arterial flow voids of the skullbase are preserved. Thinning of the ocular lenses. Mild paranasal sinus mucosal thickening. The mastoid air cells are clear. IMPRESSION: 1. Motion artifact degrades image quality. No acute intracranial abnormality. 2. Mild chronic microvascular ischemic changes and diffuse cerebral volume loss. Dictated by Freedom Salomon MD @ 07/14/2024 4:21:52 PM (Electronically Signed)
--- NOTE | 2024-07-14 14:09 | CRLHL7_ITS ---
For Patients: As a result of the Century Cures Act, medical imaging exams and procedure reports are released immediately into your electronic medical record. You may view this report before your referring provider. If you have questions, please contact your health care provider. INDICATION: Left arm and leg weakness. TECHNIQUE: Multiplanar multisequence noncontrast MR images of the cervical spine. COMPARISON: None. FINDINGS: Motion artifact considerably degrades image quality. Straightening of the cervical lordosis. No acute fracture. Solid anterior fusion from C5 through C7. No T1 hypointense lesions. No definite cord signal abnormalities are demonstrated within exam limitations, though evaluation is limited. C2-3: Posterior disc bulge. Thickening ligamentum flavum. Moderate left facet arthropathy. Mild spinal canal narrowing. No neural foraminal narrowing. C3-4: Advanced disc height loss. Posterior disc osteophyte complex. Left uncinate spurring. Left facet ankylosis. Minimal spinal canal narrowing. Mild left without right neural foraminal narrowing. C4-5: Posterior disc bulge eccentric to the right. Uncinate spurring. Mild facet arthropathy. Mild spinal canal narrowing. Mild right and without left neural foraminal narrowing. C5-6: Anterior fusion. Right uncinate spurring. No spinal canal narrowing. Fiqd-hs-wewlorqi right without left neural foraminal narrowing. C6-7: Anterior fusion. Uncinate spurring. No spinal canal narrowing. Cdqw-wv-mlezeusd bilateral neural foraminal narrowing. C7-T1: Moderate disc height loss. Ektp-qp-hruoslfe vertebral body edema. Posterior disc bulge. Moderately advanced facet arthropathy. Edema in the yfetv-rmkwqtb-mzco-left Itqg-nx-tmfsujgj bilateral neural foraminal narrowing. T1-2: No spinal canal or neural foraminal stenosis. IMPRESSION: 1. Motion artifact considerably degrades image quality. 2. Multilevel cervical spondylosis without spinal canal stenosis. No definite cord signal abnormality within exam limitations. 3. At C7-T1, nxdd-fs-nlmsuobz bilateral neural foraminal narrowing edema in the right greater than left posterior elements, compatible with a stress response. 4. Postsurgical changes of solid anterior fusion from C5-C7. Dictated by Freedom Salomon MD @ 07/14/2024 4:28:23 PM (Electronically Signed)
== END 2024-07-14 16:45 | disposition home or self-care (01) ==
PROVIDERS: Emergency Provider Family Medicine; PCP Family Medicine
DX: M79.602 Pain in left arm (principal); E11.9 Type 2 diabetes mellitus without complications; T75.4XXA Electrocution, initial encounter
CPT/HCPCS: 36415; 70450; 70496; 70498; 70551; 72141; 80048; 82962; 84484; 85025; 85610; 85730; 93005; 94761; 99284; 99285; G0427; Q9967

== ENCOUNTER 2024-07-17 13:14 | Outpatient (CLI) | payer MEDICARE, SELFPAY | END 2024-07-17 13:15 | disposition home or self-care (01) | LOC: AMB 07-25 06:33 | PROVIDERS: PCP Family Medicine; Visit Provider Student in an Organized Health Care Education/Training Program | DX: R07.89 Other chest pain (principal); R42 Dizziness and giddiness; R51.9 Headache, unspecified | CPT/HCPCS: A0425; A0427 ==

== ENCOUNTER 2024-07-17 13:43 | Emergency (ER) | payer MEDICARE, SELFPAY ==
[2024-07-17] VITALS (19 sets, daily range): BP systolic 101–141; BP diastolic 71–91; PULSE 87–107; RESP 18–20; TEMP 36.6–37.1; O2SAT 94–97; BMI 30.9
--- NOTE | 2024-07-17 13:51 | ED_ITS ---
HPI - General Adult General Chief complaint: Chest Pain Stated complaint: Chest Time Seen by Provider: 07/17/24 13:51 History of Present Illness HPI narrative: pt sent here from [facility]. was there for follow up, seen in ED 2 days ago for electrical shock, pt was working on a coller but it was determined pt could not have gotten shock from that . continues to get electrical shock feelings in L arm, neck and R chest. pt states having electrical feeling in chest. clinic gave pt 1 ntg @ 1300 and 4 baby asa. ems gave pt 50 mcg fentanyl and 2 mg morphine 68-year-old man presenting to the emergency department via EMS from local clinic with concern of electrical shocks in his right upper chest. These shocks can last though as long as a minute. This is not familiar location for this. Was seen recently in this emergency department with concern of like electrical shock occurring in his left chest and affecting his left arm (and leg?). Today does not appear to have been associated with shortness of breath no nausea. Has received pain medication nitro an aspirin here. I did receive a call from clinic were further information that did have follow-up 2 days ago with heart rate in the 40s which is not necessarily unusual. Noting now this new right- sided shocking sensation. There was concern of being in out of consciousness as well as was reportedly intermittently unresponsive. I inquire with Mr. Luna about this and he does not note that that was occurring. Concern was also expressed by provider of laterally depression in the EKGs. 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 Mr. Luna does have a history of diabetes. Relatively recent non-STEMI and restenosis in November. Underlying history of diabetes Does have a history of right and left carpal tunnel syndrome and ulnar neuropathy of the left and right upper extremity. Related Data Home Medications ?Medication ?Instructions ?Recorded ?Confirmed atorvastatin 40 mg tablet 40 mg PO HS 01/08/23 07/14/24 gabapentin 300 mg capsule 1,200 mg PO BID 01/08/23 07/14/24 insulin glargine 100 unit/mL (3 20 unit subcut HS 01/08/23 07/14/24 mL) subcutaneous pen (Lantus Solostar U-100 Insulin) insulin lispro 100 unit/mL 6 - 10 unit subcut TIDWM 01/08/23 07/14/24 subcutaneous pen metformin 500 mg tablet,extended 1,000 mg PO BIDWM 01/08/23 07/14/24 release 24 hr oxycodone 5 mg tablet 5 - 10 mg PO HS PRN 05/17/23 07/14/24 clopidogrel 75 mg tablet 75 mg PO DAILY 11/11/23 07/14/24 duloxetine 30 mg capsule,delayed 30 mg PO DAILY 04/20/24 07/14/24 release insulin lispro 100 unit/mL 1 sliding scale dose subcut 05/18/24 05/18/24 subcutaneous cartridge (Humalog USEASDIRECTD U-100 Insulin) acetaminophen 500 mg tablet 500 mg PO TID PRN 07/14/24 07/14/24 aspirin 81 mg tablet,delayed 81 mg PO DAILY 07/14/24 07/14/24 release (Adult Low Dose Aspirin) empagliflozin 10 mg tablet 10 mg PO DAILY 07/14/24 07/14/24 (Jardiance) multivitamin (Daily Multi-Vitamin 1 tab PO DAILY 07/14/24 07/14/24 tablet) nitroglycerin 0.4 mg sublingual 0.4 mg sublingual Q5-15M PRN 07/14/24 07/14/24 tablet Allergies Allergy/AdvReac Type Severity Reaction Status Date / Time acetaminophen (From Allergy Mild Verified 07/14/24 14:11 Darvocet-N) oxycodone (From Percocet) Allergy Mild Verified 07/14/24 14:11 propoxyphene (From Allergy Mild Verified 07/14/24 14:11 Darvocet-N) bupropion (From Wellbutrin) Allergy Verified 07/14/24 14:11 Review of Systems Status of ROS: Reports: 6 or more systems reviewed and unremarkable except as noted in History and below [facility] Surgical History Amputated toe of left foot ?S98.132A - Complete traumatic amputation of one left lesser toe, initial encounter (ICD-10) Cervical vertebral fusion ?M43.22 - Fusion of spine, cervical region (ICD-10) S/P right rotator cuff repair ?Z98.890 - Other specified postprocedural states (ICD-10) History of cholecystectomy ?Z90.49 - Acquired absence of other specified parts of digestive tract (ICD- 10) History of appendectomy ?Z90.49 - Acquired absence of other specified parts of digestive tract (ICD- 10) Gastric bypass status for obesity ?Z98.84 - Bariatric surgery status (ICD-10) Social History Smoking Status: Never smoker Do you use any of these nicotine containing products: None Second hand tobacco smoke exposure: No How often do you have a drink containing alcohol: 2-3 times a week How many standard drinks containing alcohol do you have on a typical day: 1 or 2 How often do you have six or more drinks on one occasion: Never AUDIT-C Alcohol total score: 3 Non-prescribed substance use: denies use service: No Exam Narrative: Exam Narrative: Pleasant. Mildly anxious. Skin is warm and dry. Well-healing midline abdominal incision. There is however a little bit of erosion at the right upper umbilical area related to this incision. No surrounding erythema or swelling. Abdomen is soft and sore at the left lower chest/rib margin. Lungs appear to be clear. Heart in elevated rate in regular rhythm though I think with some ectopic beats. Lower extremities with very trace pretibial pitting edema. Is well-perfused. Cranial nerves 2-12 intact. Moving all extremities without difficulty. He has good strength I would say equal in left and right arms today. Hand contractures noted Const: Vital Signs, click to edit/add: Vital Signs - 24 hr 07/17/24 13:47 07/17/24 13:55 07/17/24 14:01 Temperature 98.8 F Pulse Rate 91 Pulse Rate [Pulse Oximeter] 99 Pulse Rate [orthos tatic lying Left P ulse Oximeter] Pulse Rate [orthos tatic sitting Left Pulse Oximeter] Pulse Rate [orthos tatic standing Lef t Pulse Oximeter] Respiratory Rate 18 Blood Pressure Blood Pressure [Ri ght Upper Arm] 129/78 Blood Pressure [or thostatic lying Ri ght Arm] Blood Pressure [or thostatic sitting Right Arm] Blood Pressure [or thostatic standing Right Arm] Pulse Oximetry 96 95 95 Oxygen Delivery Me thod Room Air 07/17/24 14:03 07/17/24 14:06 07/17/24 14:15 Temperature Pulse Rate 96 96 Pulse Rate [Pulse Oximeter] Pulse Rate [orthos tatic lying Left P ulse Oximeter] Pulse Rate [orthos tatic sitting Left Pulse Oximeter] Pulse Rate [orthos tatic standing Lef t Pulse Oximeter] Respiratory Rate Blood Pressure 116/91 H Blood Pressure [Ri ght Upper Arm] Blood Pressure [or thostatic lying Ri ght Arm] Blood Pressure [or thostatic sitting Right Arm] Blood Pressure [or thostatic standing Right Arm] Pulse Oximetry 95 96 Oxygen Delivery Me thod 07/17/24 14:30 07/17/24 14:32 07/17/24 14:45 Temperature Pulse Rate 92 93 92 Pulse Rate [Pulse Oximeter] Pulse Rate [orthos tatic lying Left P ulse Oximeter] Pulse Rate [orthos tatic sitting Left Pulse Oximeter] Pulse Rate [orthos tatic standing Lef t Pulse Oximeter] Respiratory Rate 20 Blood Pressure 120/88 Blood Pressure [Ri ght Upper Arm] Blood Pressure [or thostatic lying Ri ght Arm] Blood Pressure [or thostatic sitting Right Arm] Blood Pressure [or thostatic standing Right Arm] Pulse Oximetry 95 96 96 Oxygen Delivery Me thod 07/17/24 14:53 07/17/24 14:54 07/17/24 14:56 Temperature Pulse Rate 93 95 107 H Pulse Rate [Pulse Oximeter] Pulse Rate [orthos tatic lying Left P ulse Oximeter] Pulse Rate [orthos tatic sitting Left Pulse Oximeter] Pulse Rate [orthos tatic standing Lef t Pulse Oximeter] Respiratory Rate Blood Pressure 129/71 130/78 106/74 Blood Pressure [Ri ght Upper Arm] Blood Pressure [or thostatic lying Ri ght Arm] Blood Pressure [or thostatic sitting Right Arm] Blood Pressure [or thostatic standing Right Arm] Pulse Oximetry 95 95 96 Oxygen Delivery Me thod 07/17/24 15:00 07/17/24 15:00 07/17/24 15:02 Temperature Pulse Rate 93 91 Pulse Rate [Pulse Oximeter] Pulse Rate [orthos tatic lying Left P ulse Oximeter] 89 Pulse Rate [orthos tatic sitting Left Pulse Oximeter] 93 Pulse Rate [orthos tatic standing Lef t Pulse Oximeter] 107 H Respiratory Rate Blood Pressure 131/81 Blood Pressure [Ri ght Upper Arm] Blood Pressure [or thostatic lying Ri ght Arm] 129/71 Blood Pressure [or thostatic sitting Right Arm] 130/78 Blood Pressure [or thostatic standing Right Arm] 106/74 Pulse Oximetry 95 94 Oxygen Delivery Me thod 07/17/24 15:32 07/17/24 15:59 07/17/24 16:01 Temperature 98.7 F Pulse Rate Pulse Rate [Pulse Oximeter] Pulse Rate [orthos tatic lying Left P ulse Oximeter] Pulse Rate [orthos tatic sitting Left Pulse Oximeter] Pulse Rate [orthos tatic standing Lef t Pulse Oximeter] Respiratory Rate Blood Pressure 101/88 130/85 Blood Pressure [Ri ght Upper Arm] Blood Pressure [or thostatic lying Ri ght Arm] Blood Pressure [or thostatic sitting Right Arm] Blood Pressure [or thostatic standing Right Arm] Pulse Oximetry 95 Oxygen Delivery Me thod Room Air 07/17/24 16:12 07/17/24 18:16 Temperature 97.8 F Pulse Rate 87 Pulse Rate [Pulse Oximeter] 90 Pulse Rate [orthos tatic lying Left P ulse Oximeter] Pulse Rate [orthos tatic sitting Left Pulse Oximeter] Pulse Rate [orthos tatic standing Lef t Pulse Oximeter] Respiratory Rate 18 Blood Pressure Blood Pressure [Ri ght Upper Arm] 141/78 H Blood Pressure [or thostatic lying Ri ght Arm] Blood Pressure [or thostatic sitting Right Arm] Blood Pressure [or thostatic standing Right Arm] Pulse Oximetry 97 97 Oxygen Delivery Me thod Room Air Documenting provider has reviewed patient's vital signs: yes Course Vital Signs Vital signs: Initial Vital Signs Temperature 98.8 F 07/17/24 13:47 Temperature Source Temporal Artery Scan 07/17/24 13:47 Pulse Rate 99 07/17/24 13:47 Respiratory Rate 18 07/17/24 13:47 Blood Pressure 129/78 07/17/24 13:47 Blood Pressure Mean 95 07/17/24 13:47 Blood Pressure Position Supine 07/17/24 13:47 Pulse Oximetry 96 07/17/24 13:47 Oxygen Delivery Method Room Air 07/17/24 13:47 Vital Signs Temperature 98.8 F 07/17/24 13:47 Pulse Rate 99 07/17/24 13:47 Respiratory Rate 18 07/17/24 13:47 Blood Pressure 129/78 07/17/24 13:47 Pulse Oximetry 96 07/17/24 13:47 Oxygen Delivery Method Room Air 07/17/24 13:47 Temperature 97.8 F 07/17/24 18:16 Pulse Rate 90 07/17/24 18:16 Respiratory Rate 18 07/17/24 18:16 Blood Pressure 141/78 H 07/17/24 18:16 Pulse Oximetry 97 07/17/24 18:16 Oxygen Delivery Method Room Air 07/17/24 18:16 Medications Administered Medications: Discontinued Medications Generic Name Dose Route Start Last Admin Trade Name Chao PRN Reason Stop Dose Admin Acetaminophen 1,000 mg 07/17/24 17:25 07/17/24 17:31 Acetaminophen 500 Mg Tablet PO 07/17/24 17:26 1,000 mg ONCE ONE Administration Sodium Chloride 500 mls @ 1,000 mls/hr 07/17/24 14:01 07/17/24 14:57 0.9 % Sodium Chloride 500 Ml IV 07/17/24 14:30 Infused .Q30M ONE Infusion Lorazepam 0.5 mg 07/17/24 16:21 07/17/24 16:29 Lorazepam 2 Mg/Ml Inj IVP 07/17/24 16:22 0.5 mg ONCE ONE Administration Medical Decision Making MDM Narrative Medical decision making narrative: Unclear what to make of the shocks of pain. Did not appear to be associated with weakness at this time. Would monitor for evidence of cardiac injury and development of any dysrhythmia at this point. Has had extensive evaluation with prior visit. No evidence of neurovascular infarct here today. Perhaps these are spasms of muscle. Location seems atypical for radicular symptoms from cervical spine. Complicated by emotional response? I do independently review EKGs on arrival. These do looks similar to prior. Consistent also with right bundle-branch block. Repeat EKG here shows sinus rhythm but some PVCs. Right bundle branch block is present. Rate 96 Chest x-ray independently reviewed by me does not show any infiltrate and pneumothorax. Cervical spine fusion noted. Orthostatics are positive. Consistent with how he describes some of these events Given lorazepam. On reassessment no further events of chest pain. Did have some other headache I believe and discomfort improved then after acetaminophen. Spoke with cardiology. Reviewed EKGs and history. Seemed atypical for ischemic cardiovascular event. Would have thought maybe symptomatic PVCs but clearly demonstrating these on monitor without symptoms. EKG is without ischemic changes including would say those taken today in clinic. Compared to prior as noted. Repeat troponin negative. See patient discharge plan for further discussion I am happy you are feeling better. As I said I did discuss your case with Cardiology. They are happy to see you sooner if this pain continues; you can call them. If it becomes more intense or changes in any way that makes you worried, please return though sooner to the emergency department. Your EKG looks similar to prior and it does not appear that in your labs you have had any injury to your heart. Medical Records Medical records reviewed: Yes I reviewed the patient's medical records Lab Data Lab results reviewed: Yes I reviewed the patient's lab results Labs: Lab Results 07/17/24 07/17/24 07/17/24 Range/Units 14:01 14:31 16:32 WBC 5.64 (4.50-11.00) K/uL RBC 4.76 (4.30-5.90) m/uL Hgb 11.8 L (13.5-17.5) gm/dL Hct 38.8 (37.0-53.0) % MCV 82 (80-100) fL MCH 25 L (26-34) pg MCHC 30 L (32-36) gm/dL RDW Coeff of Lou 13.7 (11.5-15.5) % Plt Count 141 (140-440) K/uL Neut % (Auto) 61.4 (42.0-72.0) % Lymph % (Auto) 27.3 (20-44) % [place] % (Auto) 8.0 (0.0-11.0) % Eos % (Auto) 2.7 (0.0-7.0) % Baso % (Auto) 0.4 (0.0-3.0) % Neut # (Auto) 3.47 (1.7-7.0) K/uL Lymph # (Auto) 1.54 (0.90-2.90) K/uL [place] # (Auto) 0.50 (0.00-0.90) K/UL Eos # (Auto) 0.15 (0.00-0.50) K/uL Baso # (Auto) 0.02 (0.00-0.30) K/uL Abs Immat Gran (auto) 0.01 (0.00-0.30) K/uL Imm/Tot Granulo (auto) 0.2 % Sodium 138 (135-149) mmol/L Potassium 3.6 (3.6-5.1) mmol/L Chloride 109 (96-114) mmol/L Carbon Dioxide 22 (20-32) mmol/L Anion Gap 7 (7-15) mEq/L BUN 21 (7-30) mg/dL Creatinine 1.2 (0.5-1.5) mg/dL Estimated Creat Clear 69.45 Estimated GFR 66 ml/min Glucose 127 H (60-115) mg/dL Calcium 8.8 (8.4-10.6) mg/dL Troponin I 0.02 (0.01-0.04) ng/mL C-Reactive Protein < 0.5 L (0.5-1.0) mg/dL NT-Pro-B Natriuret Pep 754 pg/mL POC Troponin I 0.02 0.03 (0.01-0.04) ng/ml Discharge Plan Discharge Clinical Impression: Atypical chest pain Patient Disposition: Home w/ Parent or Adult Condition: Improved Additional Instructions: I am happy you are feeling better. As I said I did discuss your case with Cardiology. They are happy to see you sooner if this pain continues; you can call them. If it becomes more intense or changes in any way that makes you worried, please return though sooner to the emergency department. Your EKG looks similar to prior and it does not appear that in your labs you have had any injury to your heart. Prescriptions: No Action oxycodone 5 mg tablet 5 - 10 mg PO HS PRN duloxetine 30 mg capsule,delayed release(DR/EC) 30 mg PO DAILY Humalog U-100 Insulin 100 unit/mL cartridge 1 sliding scale dose subcut USEASDIRECTD atorvastatin 40 mg tablet 40 mg PO HS gabapentin 300 mg capsule 1,200 mg PO BID metformin 500 mg tablet extended release 24 hr 1,000 mg PO BIDWM insulin lispro 100 unit/mL insulin pen 6 - 10 unit subcut TIDWM insulin glargine [Lantus Solostar U-100 Insulin] 100 unit/mL (3 mL) insulin pen 20 unit subcut HS clopidogrel 75 mg tablet 75 mg PO DAILY acetaminophen 500 mg tablet 500 mg PO TID PRN aspirin [Adult Low Dose Aspirin] 81 mg tablet,delayed release (DR/EC) 81 mg PO DAILY Jardiance 10 mg tablet 10 mg PO DAILY multivitamin [Daily Multi-Vitamin] Tablet 1 tab PO DAILY nitroglycerin 0.4 mg tablet, sublingual 0.4 mg sublingual Q5-15M PRN Rx Instructions: do not exceed 3 doses per episode Follow Up/Referrals: Lakesha Khan MD [Primary Care Provider] - Stand Alone Forms: [employer] Info Instructions
--- NOTE | 2024-07-17 14:01 | CRLHL7_ITS ---
For Patients: As a result of the Century Cures Act, medical imaging exams and procedure reports are released immediately into your electronic medical record. You may view this report before your referring provider. If you have questions, please contact your health care provider. INDICATION: Chest pain COMPARISON: 05/05/2024 TECHNIQUE: Single frontal radiographic view(s) of the chest. FINDINGS: Mildly low lung volumes. No substantial pleural effusion. No definite focal pulmonary consolidation. Normal heart size within the limitations of low lung volumes and portable technique. There are osseous degenerative changes. Truncated appearance of the right distal clavicle is again noted which may be postsurgical. Partially imaged cervical spinal fusion hardware. Multiple old left-sided rib fractures. IMPRESSION: Mildly low lung volumes. No acute thoracic findings. Dictated by Gautam Bruce MD @ 07/17/2024 2:57:33 PM (Electronically Signed)
[2024-07-17] MEDS: 0.9 % SODIUM CHLORIDE 500 ML 500 ML 1000 ML IV (14:16)
--- OUTSIDE RECORDS SUMMARY | 2024-07-17 14:24 | XMS_ITS | Clinical Summary ---
Author Organization [facility] Address [place], [place] [address] Care Team Providers Care Human Performance Technologist Name Role Phone Lakesha Khan MD Primary Care Provider [phone] Clinic, [facility] [place] Unavailable [phone] Allergies Active Allergy Reactions Criticality Noted Date Comments Spironolactone Dizziness,Headache 07/28/2023 Splitting headache when increased dose Bupropion Other - Describe In Comment Field light headed Medications Medication Sig Dispensed Refills Start Date End Date Status MULTIVITAMIN TAB take 1 tablet by oral route once daily with food 0 8 Active acetaminophen (TYLENOL EXTRA STRGTH) 500 mg tabletIndication s:Closed fracture of multiple ribs of right side, initial encounter Take 1 Tablet (500 mg) by mouth 3 times daily if needed for Pain. Max acetaminophen dose: 4000mg in 24 hrs. 0 2 Active Insulin [place], Disposable, (Pen Needle) 32 gauge x 5/32Indications :Type 2 diabetes mellitus with diabetic polyneuropathy, with long-term current use of insulin (HC) As directed. Remove the 2 covers on the insulin pen needle before administering insulin dose four times daily 400 Each 3 3 Active clopidogreL (PLAVIX) 75 mg tabletIndication s:NSTEMI (non-ST elevated myocardial infarction) (HC) Take 1 Tablet (75 mg) by mouth once daily. For 1 year 90 Tablet 3 3 Active nitroglycerin (NITROSTAT) 0.4 mg sublingual tabletIndication s:ASHD (arterioscleroti c heart disease),S/P drug eluting coronary stent placement Place 1 Tablet (0.4 mg) under the tongue every 5 minutes if needed for Chest Pain. Up to 3 tablets in 15 minutes. 25 Tablet 1 3 Active ammonium lactate 12% topical (LACHYDRIN) 12 % lotionIndication s:Fissure in skin of foot,Type 2 diabetes mellitus with diabetic polyneuropathy, with long-term current use of insulin (HC) Apply topically to affected area(s) two times daily. 396 g 5 4 Active FreeStyle Jordana 2 ReaderIndication s:Type 2 diabetes mellitus with diabetic polyneuropathy, with long-term current use of insulin (HC) To be used to read blood sugars per vinyl installer's directions. 1 Each 4 Active empagliflozin (JARDIANCE) 10 mg tabletIndication s:Type 2 diabetes mellitus with diabetic polyneuropathy, with long-term current use of insulin (HC) Take 1 Tablet (10 mg) by mouth once daily. 100 Tablet 3 4 Active DULoxetine (CYMBALTA) 30 mg Delayed-release capsuleIndicatio ns:Depressed mood Take 1 Capsule (30 mg) by mouth once daily. 100 Capsule 3 4 Active continuous glucose monitor SENSOR KIT (FreeStyle Jordana 2 Sensor)Indicatio ns:Type 2 diabetes mellitus with diabetic polyneuropathy, with long-term current use of insulin (HC) Change sensor every 14 days AND USE DIRECTED 6 Each 3 4 Active oxyCODONE 10 mg tabletIndication s:Spinal stenosis of lumbar region with neurogenic claudication Take 0.5-1 tablet by mouth at bedtime; may repeat in the middle of the night if needed; 03-16-2024 45 Tablet 4 Active gabapentin (NEURONTIN) 300 mg capsuleIndicatio ns:Spinal stenosis of lumbar region with neurogenic claudication Take 4 Capsules (1,200 mg) by mouth two times daily. 800 Capsule 3 4 Active metFORMIN (GLUCOPHAGE XR) 500 mg Extended-Release tabletIndication s:Type 2 diabetes mellitus with diabetic polyneuropathy, with long-term current use of insulin (HC) TAKE TWO TABLETS BY MOUTH TWICE DAILY WITH MEALS 400 Tablet 3 4 Active atorvastatin (LIPITOR) 40 mg tabletIndication s:Type 2 diabetes mellitus with diabetic polyneuropathy, with long-term current use of insulin (HC) TAKE ONE TABLET BY MOUTH AT BEDTIME 100 Tablet 2 4 Active aspirin (ECOTRIN) 81 mg enteric coated tabletIndication s:Essential hypertension Take 1 Tablet (81 mg) by mouth once daily with a meal. 90 Tablet 3 4 Active Lantus Solostar U-100 Insulin 100 unit/mL (3 mL) penIndications:T ype 2 diabetes mellitus with diabetic polyneuropathy, with long-term current use of insulin (HC) Inject 20 units subcutaneous before bedtime. 20 mL 3 4 Active insulin lispro, U-100, (HUMALOG KWIKPEN; ADMELOG SOLOSTAR) 100 unit/mL inpn penIndications:T ype 2 diabetes mellitus with diabetic polyneuropathy, with long-term current use of insulin (HC) Inject 6-10 units before each meal. Max units per day 30. Product desired: HUMALOG KWIKPEN 30 mL 3 4 Active aspirin (ECOTRIN) 81 mg enteric coated tabletIndication s:Type 2 diabetes mellitus with diabetic polyneuropathy, with long-term current use of insulin (HC) Take 1 Tablet (81 mg) by mouth once daily with a meal. 0 1 024 Discontinued(*P atient states no longer taking) insulin lispro, U-100, (HUMALOG KWIKPEN; ADMELOG SOLOSTAR) 100 unit/mL inpn penIndications:T ype 2 diabetes mellitus with diabetic polyneuropathy, with long-term current use of insulin (HC) 1 units for every 30 mg/dL starting at 150 mg/dL (6-10 u per meal). Max units per day 30. Product desired: HUMALOG KWIKPEN 15 mL 9 3 024 Discontinued Lantus Solostar U-100 Insulin 100 unit/mL (3 mL) penIndications:T ype 2 diabetes mellitus with diabetic polyneuropathy, with long-term current use of insulin (HC) Inject 6 units subcutaneous before bedtime. Product desired: LANTUS SOLOSTAR 4 024 Discontinued Active Problems Problem Noted Date Diagnosed Date Platelets decreased 04/24/2024 Syncope 11/06/2023 Troponin level elevated 11/06/2023 Ischemic cardiomyopathy 11/06/2023 Chronic systolic CHF (congestive heart failure) 07/26/2023 Stage 3 chronic kidney disease 07/26/2023 NSTEMI (non-ST elevated myocardial infarction) 1 09/26/2022 Acute HFrEF (heart failure with reduced ejection fraction) 05/27/2023 ASCVD (arteriosclerotic cardiovascular disease) 05/27/2023 Overview (07/31/2023): [id number] MYOCARDIAL INFARCTION on 07/26/23. He is to stay on Plavix and aspirin for at least a year. Coronary atherosclerosis due to calcified coronary lesion of chickaloon artery 05/27/2023 Sleep apnea 11/29/2022 11/29/2022 Overview (11/29/2022): states resolved w/ gastric bypass Moderate episode of recurrent major depressive d isorder 11/29/2022 Sensorineural hearing loss, bilateral 12/13/2021 Presence of coronary angioplasty implant and gra ft 12/20/2020 11/29/2022 Old myocardial infarction 05/16/20202022 Overview (11/29/2022): Diagnosis Maintenance Updates Orthostatic hypotension 05/10/2020 Type 2 diabetes mellitus wit h diabetic polyneuropathy, with long-term current use of insulin 05/02/2020 Other specified postprocedural states 03/28/2020 11/29/2022 Duodenal perforation 09/26/2019 11/29/2022 Chronic diastolic heart failure 09/15/2019 11/29/2022 Adenomatous polyp of ascending colon 09/14/2019 11/29/2022 Hyperlipidemia 06/10/2019 11/29/2022 Essential hypertension 12/03/2018 Partial nontraumatic amputation of left foot 03/2018 Resolved Problems Problem Noted Date Diagnosed Date Resolved Date Acute on chronic diastolic heart failure 05/26/2023 05/27/[address] 09/14/2020 3 Encounters Date Type Department Care Team Description 07/17/2024 12:40 PM HERBARIUM CURATOR Office Visit [facility] [address] [place] [address] Lakesha Khan MD Occ Med (Follow up ) 07/17/2024 Travel 07/15/2024 11:15 AM HERBARIUM CURATOR Office Visit [facility] [address] [place] [address] Lakesha Khan MD Occ Med (ER follow up 07/13, electric shock from fridge at [employer], Needing Note to return to work ) 07/15/2024 Travel 07/14/2024 Orders Only [facility] Scanner 1 scan: (1-Ord) [place], CT ANGIO HEAD, 07/14/2024 07/14/2024 Orders Only [facility] Scanner 1 scan: (1-Ord) [place], CT ANGIO NECK, 07/14/2024 07/14/2024 Orders Only [facility] Scanner 1 scan: (1-Ord) [facility], HEAD/BRAIN WO CON , 07/14/2024 07/14/2024 Orders Only [facility] Scanner 1 scan: (1-Ord) POSSIBLE ELECTROCUTIO, 07/14/2024 07/14/2024 Orders Only [facility] Scanner 1 scan: (1-Ord) [facility], MULTIPLE LABS, 07/14/2024 07/14/2024 Orders Only [facility] Scanner 1 scan: (1-Ord) [facility], MR CERVICAL SPINE WO, 07/14/2024 07/14/2024 Orders Only [facility] Scanner 1 scan: (1-Ord) [facility], CT HEAD/BRAIN WO CONTRAST, 07/14/2024 07/14/2024 Office Visit [facility] [address] [place] [address] Sebastian Wong MBBS Telehealth ([facility]) 07/13/2024 Refill [facility] [address] [place] [address] Lakesha Khan MD Refill Request (Clopidogrel) 06/18/2024 3:00 PM HERBARIUM CURATOR Office Visit [address] [place] [phone] Sree Diamond NP Follow Up (F/U to testing, echo prior, zio 05/12-05/14. Pt states he took a nitro pill 06/16 at 7pm, he felt right sided chest pain and it went away, he was at choir singing. Still gets occasional lightheadedness/diz ziness. No current cardiac symptoms, just fatigued) 06/18/2024 1:46 PM HERBARIUM CURATOR - 06/18/2024 11:59 PM HERBARIUM CURATOR Hospital Encounter [facility] [address] [facility] [place] [address] Sree Diamond NP Congestive heart failure, unspecified HF chronicity, unspecified heart failure type (HC) 06/18/2024 Refill [facility] [address] [place] [address] Lakesha Khan MD Refill Request (Lantus Solostar U-100 Insulin, Insulin Lispro (U-100)) 06/18/2024 Travel 06/13/2024 Travel 06/04/2024 Telephone [facility] [address] [facility] [address] [place] [phone] Heather Caceres MD Appointment Request 06/04/2024 Telephone [facility] [place] [address] [facility] [address] [place] [phone] Sree Diamond NP Results (zio) 05/12/2024 2:00 PM CDT Office Visit [facility] [place] [address] [facility] [address] [place] [phone] Sree Diamond NP CV General Cardiology Est (PT states his BP has been running high and low, systolic from 200's to 80's HR has been high, ref back to cardiology by [facility]. ) 05/12/2024 Travel 05/12/2024 Refill [facility] [address] [facility] [place] [address] Lakesha Khan MD Refill Request (Atorvastatin) 05/08/2024 Travel 05/07/2024 1:05 PM CDT Office Visit [facility] [address] [facility] [place] [address] Lakesha Khan MD Blood Pressure (Follow up from ER ); Derm Problem (Abdominal infection/) 05/07/2024 Travel 05/05/2024 12:55 PM CDT Office Visit [facility] [address] [facility] [place] [address] Maximilian Tellez, Blood Pressure (High BP numbers last couple weeks, dizzy all the time) 05/05/2024 Orders Only [facility] Scanner 1 scan: (1-Ord) [place], CHEST 1V PROTABLE, 05/05/2024 05/05/2024 Travel 05/02/2024 Travel 04/29/2024 Refill [facility] [address] [facility] [place] [address] Lakesha Khan MD Refill Request (Metformin) 04/24/2024 9:05 AM CDT Office Visit [facility] [address] [facility] [place] [address] Lakesha Khan MD Infection (Abdominal lesions, ED on 04/22 couldn't wait till today wanting different pain killer s/) 04/24/2024 Travel 04/22/2024 Orders Only [facility] Scanner 1 scan: (1-Ord) [place], ABDOMEN PELVIS W/CON, 04/22/2024 04/20/2024 Travel from Last 3 Months Immunizations Name Administration Dates Next Due COVID-19 VACCINE SPIKEVAX (M ODERNA 50MCG/0.5ML) 12YO+ PFS 05/07/2024 COVID-19 vaccine (Moderna 100mcg/0.5mL) PF, MDV 05/12/2021,11/29/2020,11/01/2020 COVID-19 vaccine (Pfizer-Bio NTech 30mcg/0.3mL) 12YO+ BIVALENT PF, MDV 01/24/2023 Influenza Virus, Unspecified 05/20/2020, 05/16/2019,05/12/2016,06/19,06/16/2004 Influenza, High-dose Quadriv alent Inactivated 05/14/2023,04/27/2022 Influenza, IIV3 (Age 6-35 mos) 05/21/2013,2010 Influenza, IIV3 (Age >=3 years) 05/24/20 21,05/20/2020,05/13/2012,05/09,05/23/1998,06/08/1996 Influenza, IIV4 06/05/2018,04/26/2015 Influenza, IIV4 (=>6mos) MDV 04/16/2017 Influenza, Inactivated IIV3 (Age 65+ Years) Preserv Free 05/07/2024 Pneumococcal Conj 20-valent (Prevnar 20) 04/30/2022 Pneumococcal Poly,23-Valent (Pneumovax) 05/26/2013,06/19/2006,06/08/1996 RSV, Recombinant ADJ Reconst ituted (Arexvy 120MCG/0.5mL) 06/20/2023 Td (Age >=7 Years) 08/12/2005,08/28/1999 Tdap 08/13/2014 Zoster (Shingrix-RZV, recombinant) 07/29/2020, Family History Medical History Relation Name Comments Other Father aneurysm abdomi nal aorta age, d70 Cancer-colon Mother age 69 Heart Disease Sister 1 Cancer-prostate No Family History Diabetes No Family History Relation Name Status Comments Father Mother Sister 1 Alive Sister 2 Alive Social History Tobacco Use Types Packs/Day Years Used Date Smoking Tobacco: Never Smokeless Tobacco: Never Tobacco Cessation:Counseling Given: No Alcohol Use Standard Drinks/Week Comments Yes 0 (1 standard drink = 0.6 oz pur e alcohol) socially PHQ-2 Answer Date Recorded PHQ-2 TOTAL SCORE 0 10/08/2023 Social Connections Answer Date Recorded Do you often feel lonely or isolated from those around you? 0 11/06/2023 Financial Resource Strain Answer Date R ecorded Difficulty of Paying Living Expenses 3 11/29/2022 Difficulty of Paying Living Expenses Not on file 11/29/2022 Food Insecurity Answer Date Recorded Do you worry your food will run out before you are able to buy more? 1 11/06/2023 Transportation Needs Answer Date Record ed Does lack of transportation keep you from medica l appointments? 1 11/06/2023 Does lack of transportation keep you from work, meetings or getting things that you need? 1 11/06/2023 Housing Stability Answer Date Recorded What is your housing situation today? 1 11/06/2023 Sex and Gender Information Value Date Recorded Sex Assigned at Male 04/28/2021 10:10 PM CDT Gender Identity Male 04/28/2021 10:10 PM CDT Sexual Orientation Straight 04/28/2021 10 :10 PM CDT Obstetrics History Last Filed Vital Signs Vital Sign Reading Time Taken Comments Blood Pressure 137/83 07/17/2024 1:20 PM HERBARIUM CURATOR Pulse 110 07/17/2024 1:20 PM HERBARIUM CURATOR Temperature 36.8 C (98.3 F) 04/24/2024 9:04 AM CDT Respiratory Rate 18 03/05/2024 1:54 PM CDT Oxygen Saturation 96% 07/17/2024 1:20 PM HERBARIUM CURATOR Inhaled Oxygen Concentration - - Weight 109.6 kg (241 lb 9.6 oz) 024 12:46 PM HERBARIUM CURATOR Height 188 cm (6' 2) 06/18/2024 2:52 PM HERBARIUM CURATOR Body Mass Index 31.02 06/18/2024 2:52 PM HERBARIUM CURATOR Plan of Treatment Upcoming Encounters Date Type Department Care Team (Late st Contact Info) Description 08/17/2024 3:00 PM HERBARIUM CURATOR Office Visit [facility] [address] [facility] [address] [place] [phone] Brenton Estrada MD [address] [facility] [address] [place], [place] [phone] Health Maintenance Due Date Last Done Comments Medicare Wellness for age 65+ 02/19/2024 02/18/2023 Tetanus booster 08/13/2024 08/13/2014, 08/2005, 08/28/1999 Depression screening for age 12+ 10/07/2024 10/07/2023, 08/19/2023, 08/15/2023, Additional history exists Fecal testing sDNA-FIT ([place] guard) for age 45-75 12/14/2024 12/14/2021 BMI (ht and wt on same day) for age 18+ 06/18/2025 06/18/2024, 05/12/2024, 11/29/2023, Additional history exists Lipids for age 45-75 09/19/2028 09/19/2023, 05/27/2023, 03/14/2023, Additional history exists Tdap Completed 08/13/2014 Hepatitis C screening for ag e 18-79 Completed 04/16/2017 Zoster (shingles) series for age 50+ Completed 07/29/2020, 12/03/2018 Pneumococcal series for age 65+ Completed 04/30/2022, 05/26/2013, 06/19/2006, Additional history exists COVID-19 vaccine series Completed 05/07/20, 11/21/2023, 05/14/2023, Additional history exists Influenza for age 65+ Completed 05/07/2024 , 05/14/2023, 04/27/2022, Additional history exists Procedures Procedure Name Priority Date/Time Associated Diagnosis Comments SCAN-ELECTROCARDIOGRAM EKG 07/14/2024 12:00 AM HERBARIUM CURATOR SCAN-LABORATORY REPORT 12:00 AM HERBARIUM CURATOR SCAN-CT INTERPRETATION 4 12:00 AM HERBARIUM CURATOR SCAN-CT INTERPRETATION 4 12:00 AM HERBARIUM CURATOR SCAN-MRI INTERPRETATION 07/14/2024 12:00 AM HERBARIUM CURATOR SCAN-MRI INTERPRETATION 07/14/2024 12:00 AM HERBARIUM CURATOR SCAN-CT INTERPRETATION 4 12:00 AM HERBARIUM CURATOR ECHO TTE LIMITED W CONTRAST W COLOR W DOPPLER Routine 06/18/2024 2:39 PM HERBARIUM CURATOR Congestive heart failure, unspecified HF chronicity, unspecified heart failure type (HC) EXTENDED HOLTER Routine 05/12/2024 Congestive heart failure, unspecified HF chronicity, unspecified heart failure type (HC) SCAN-RADIOLOGY REPORT 05/05/2024 12:00 AM CDT CBC WITH AUTO DIFFERENTIAL Routine 04/24/2024 10:18 AM CDT Cellulitis of skin Skin ulcer, unspecified ulcer stage (HC) CBC WITH AUTO DIFFERENTIAL Routine 04/24/2024 10:18 AM CDT Cellulitis of skin Skin ulcer, unspecified ulcer stage (HC) BASIC METABOLIC PANEL Routine 04/24/2024 10:18 AM CDT MIGEL (acute kidney injury) (HC) SCAN-CT INTERPRETATION 12:00 AM CDT LIPID PANEL W REFLEX MEASURED LDL Routine 09/19/2023 10:52 AM HERBARIUM CURATOR Coronary artery disease, unspecified vessel or lesion type, unspecified whether angina present, unspecified whether chickaloon or transplanted heart ANTI HCV Routine 04/16/2017 9:14 AM CDT Encounter for hepatitis C screening test for low risk patient from Last 3 Months or Most Recently Relevant to Health Maintenance Results * SCAN-LABORATORY REPORT (07/14/2024 12:00 AM HERBARIUM CURATOR) Scanner OTHER * SCAN-MRI INTERPRETATION (07/14/2024 12:00 AM HERBARIUM CURATOR) Only the most recent of2 resultswithin the time period is included. Anatomical Region Laterality Modality Other Scanner OTHER * SCAN-CT INTERPRETATION (07/14/2024 12:00 AM HERBARIUM CURATOR) Only the most recent of4 resultswithin the time period is included. Anatomical Region Laterality Modality Other Scanner OTHER * SCAN-ELECTROCARDIOGRAM EKG (07/14/2024 12:00 AM HERBARIUM CURATOR) Scanner OTHER * ECHO TTE LIMITED W CONTRAST W COLOR W DOPPLER (06/18/2024 2:39 PM HERBARIUM CURATOR) AORTIC VALVE MEAN PG 4 mmHg EJECTION FRACTION 47 % LVEDD 5.7 cm Anatomical Region Laterality Modality Ultrasound, Comp uted Tomography 06/18/2024 1:51 PM HERBARIUM CURATOR Narrative 06/18/2024 3:31 PM HERBARIUM CURATOR ECHOCARDIOGRAM HARRY LUNA : 1955 68 years Study Date: 06/18/2024 1:51:55 PM Gender: M BP: 122/52 mmHg Height: 188.00 cm BSA: 2.35 m Weight: 109.00 kg Tech: JEMAL Referring MD: SREE DIAMOND Site: [facility] Reading Location: [facility] Patient Location: Outpatient. Procedure: Limited Echo w/ Contrast, Color Doppler and Limited Spectral Doppler. Indication for study: CHF Cardiac Rhythm: Normal sinus and with premature ventricular contractions.Study quality: Technically limited. Final Impressions: 1. Technically limited exam. Echocardiographic contrast used for improved endocardial definition. 2. Mildly increased left ventricular size, borderline wall thickness, mildly reduced global systolic function, calculated EF of 47 %. 3. The basal septum segment is akinetic. The inferior wall, mid posterior segment, and apical lateral segment are hypokinetic. 4. Right ventricular cavity size is moderately enlarged, global systolic RV function is mildly reduced. 5. The aortic valve is trileaflet and sclerotic, no stenosis and no regurgitation. 6. The mitral valve is sclerotic, trace mitral regurgitation. Comparison Compared to prior exam report of 11/16/23, there has been no significant change. Chamber Sizes and Function Mildly increased left ventricular size, borderline wall thickness, mildly reduced global systolic function, calculated EF of 47 %. Left atrial size is moderately enlarged. Right ventricular cavity size is moderately enlarged, global systolic RV function is mildly reduced. The right atrium is normal. The pulmonary artery is not well visualized. The sinus of Valsalva is normal for age/sex/bsa. The ascending aorta is not well visualized. The basal septum segment is akinetic. The inferior wall, mid posterior segment, and apical lateral segment are hypokinetic. All remaining scored segments are normal. Valves, RV Pressures and Diastolic Function The aortic valve is trileaflet and sclerotic, no stenosis and no regurgitation. The mitral valve is sclerotic, trace mitral regurgitation. Moderate mitral annular calcification is present. Indeterminate pattern of LV diastolic filling. The tricuspid valve is normal in structure. Tricuspid regurgitation is trace regurgitation. The pulmonic valve is not well visualized. Trace pulmonary regurgitation. Masses, Effusion, Shunts There is no pericardial effusion. The inferior vena cava is not well visualized, respiratory size variation not well visualized. Interatrial septum is not well visualized. MEASUREMENTS AND CALCULATIONS 2-D Measurements and LV Function: LVID (d) 5.7 cm Planimetered EF 47 % LVID (s) 4.0 cm LV FS% (2D) 29 % IVS (d) 1.1 cm HR 61 bpm LVPW (d) 1.1 cm Ao Sinus 3.9 cm LA 4.7 cm Diastology: Mitral E Peak 1.5 m/s Aortic Valve: Vmax 1.4 m/s Max PG 8 mmHg VTI 0.21 m Mean PG 4 mmHg . This study was interpreted by an [facility] accredited facility. Final Procedure Note Freedom Santos MD - 06/18/2024 ECHOCARDIOGRAM HARRY LUNA : 1955 68 years Study Date: 06/18/2024 1:51:55 PM Gender: M BP: 122/52 mmHg Height: 188.00 cm BSA: 2.35 m Weight: 109.00 kg Tech: [facility] Referring MD: SREE DIAMOND Site: [facility] Reading Location: [facility] Patient Location: Outpatient. Procedure: Limited Echo w/ Contrast, Color Doppler and Limited SpectralDoppler. Indication for study: CHF Cardiac Rhythm: Normal sinus and with premature ventricularcontractions.Study quality: Technically limited. Final Impressions: 1. Technically limited exam. Echocardiographic contrast used for improvedendocardial definition. 2. Mildly increased left ventricular size, borderline wall thickness,mildly reduced global systolic function, calculated EF of 47 %. 3. The basal septum segment is akinetic. The inferior wall, mid posteriorsegment, and apical lateral segment are hypokinetic. 4. Right ventricular cavity size is moderately enlarged, global systolicRV function is mildly reduced. 5. The aortic valve is trileaflet and sclerotic, no stenosis and noregurgitation. 6. The mitral valve is sclerotic, trace mitral regurgitation. Comparison Compared to prior exam report of 11/16/23, there has been no significantchange. Chamber Sizes and Function Mildly increased left ventricular size, borderline wall thickness, mildlyreduced global systolic function, calculated EF of 47 %. Left atrial sizeis moderately enlarged. Right ventricular cavity size is moderatelyenlarged, global systolic RV function is mildly reduced. The right atriumis normal. The pulmonary artery is not well visualized. The sinus ofValsalva is normal for age/sex/bsa. The ascending aorta is not wellvisualized. The basal septum segment is akinetic. The inferior wall, midposterior segment, and apical lateral segment are hypokinetic. Allremaining scored segments are normal. Valves, RV Pressures and Diastolic Function The aortic valve is trileaflet and sclerotic, no stenosis and noregurgitation. The mitral valve is sclerotic, trace mitral regurgitation.Moderate mitral annular calcification is present. Indeterminate pattern ofLV diastolic filling. The tricuspid valve is normal in structure.Tricuspid regurgitation is trace regurgitation. The pulmonic valve is notwell visualized. Trace pulmonary regurgitation. Masses, Effusion, Shunts There is no pericardial effusion. The inferior vena cava is not wellvisualized, respiratory size variation not well visualized. Interatrialseptum is not well visualized. MEASUREMENTS AND CALCULATIONS 2-D Measurements and LV Function: LVID (d) 5.7 cm Planimetered EF 47 % LVID (s) 4.0 cm LV FS% (2D) 29 % IVS (d) 1.1 cm HR 61 bpm LVPW (d) 1.1 cm Ao Sinus 3.9 cm LA 4.7 cm Diastology: Mitral E Peak 1.5 m/s Aortic Valve: Vmax 1.4 m/s Max PG 8 mmHg VTI 0.21 m Mean PG 4 mmHg . This study was interpreted by an [facility] accredited facility. Final Sree Diamond INTERNAL SPECIALIST ECHO ORD * ZIO PATCH XT - weekly to monthly symptoms. (05/12/2024) 05/12/2024 Narrative Bao Moody MD - 05/26/2024 3:16 PM CDT Agree with Findings. Sree Diamond NP CARDIAC SERVICES [address] * SCAN-RADIOLOGY REPORT (05/05/2024 12:00 AM CDT) Anatomical Region Laterality Modality Other Scanner OTHER * (ABNORMAL) CBC WITH AUTO DIFFERENTIAL (04/24/2024 10:18 AM CDT) WHITE BLOOD COUNT 6.0 4.5 - 11.0 thou/cu mm 04/24/2024 10:31 AM CDT [facility] RED BLOOD COUNT 4.67 4.30 - 5.90 mil/cu mm 04/24/2024 10:31 AM CDT [facility] HEMOGLOBIN 12.8(L) 13.5 - 17.5 g/dL 04/24/2024 10:31 AM CDT [facility] HEMATOCRIT 39.5 37.0 - 53.0 % 04/24/2024 10:31 AM CDT [facility] MCV 85 80 - 100 fL 04/24/2024 10:31 AM CDT [facility] MCH 27.4 26.0 - 34.0 pg 04/24/2024 10:31 AM CDT [facility] MCHC 32.4 32.0 - 36.0 g/dL 04/24/2024 10:31 AM CDT [facility] RDW 13.5 11.5 - 15.5 % 04/24/2024 10:31 AM CDT [facility] PLATELET COUNT 151 140 - 440 thou/cu mm 04/24/2024 10:31 AM CDT [facility] MPV 10.1 6.5 - 11.0 fL 04/24/2024 10:31 AM CDT [facility] % NEUT 62.2 % 04/24/2024 10:31 AM CDT [facility] % LYMPH 25.8 % 04/24/2024 10:31 AM CDT [facility] % MONO 8.5 % 04/24/2024 10:31 AM CDT [facility] % EOS 3.2 % 04/24/2024 10:31 AM CDT [facility] % BASO 0.3 % 04/24/2024 10:31 AM CDT [facility] ABSOLUTE NEUTROPHILS 3.7 1.7 - 7.0 thou/cu mm 04/24/2024 10:31 AM CDT [facility] ABSOLUTE LYMPHOCYTES 1.6 0.9 - 2.9 thou/cu mm 04/24/2024 10:31 AM CDT [facility] ABSOLUTE MONOCYTES 0.5 <0.9 thou/cu mm 04/24/2024 10:31 AM CDT [facility] ABSOLUTE EOSINOPHILS 0.2 <0.5 thou/cu mm 04/24/2024 10:31 AM CDT [facility] ABSOLUTE BASOPHILS 0.0 <0.3 thou/cu mm 04/24/2024 10:31 AM CDT [facility] Blood BLOOD SPECIMEN / Unknown Venipuncture / Unknown 04/24/2024 10:18 AM CDT 04/24/2024 10:18 AM CDT Lakesha Khan MD HEMATOLOGY [facility] [address] [place] [address], * (ABNORMAL) BASIC METABOLIC PANEL (04/24/2024 10:18 AM CDT) SODIUM 137 136 - 145 mmol/L 04/24/2024 5:51 PM CDT [facility] POTASSIUM 4.8 3.5 - 5.1 mmol/L 04/24/2024 5:51 PM CDT [facility] CHLORIDE 105 98 - 107 mmol/L 04/24/2024 5:51 PM CDT [facility] CO2,TOTAL 23 22 - 29 mmol/L 04/24/2024 5:51 PM CDT [facility] ANION GAP 9 5 - 18 04/24/2024 5:51 PM T [facility] GLUCOSE 256(H) 70 - 99 mg/dL 04/24/2024 5:51 PM CDT [facility] CALCIUM 8.7(L) 8.8 - 10.2 mg/dL 04/24/2024 5:51 PM CDT [facility] BUN 24(H) 8 - 23 mg/dL 04/24/2024 5:51 PM T [facility] CREATININE 1.59(H) 0.70 - 1.20 mg/dL 04/24/2024 5:51 PM CDT [facility] BUN/CREAT RATIO 15 10 - 20 5:51 PM CDT [facility] eGFR 47(L) >90 mL/min/1.7 3m2 04/24/2024 5:51 PM CDT [facility] Comment:As of 2021, eG FR is calculated by the CKD-EPI creatinine equation without race adjustment. eGFR can be influenced by muscle mass, exercise, and diet. The reported eGFR is an estimation only and is only applicable if the renal function is stable. Blood BLOOD SPECIMEN / Unknown Venipuncture / Unknown 04/24/2024 10:18 AM CDT 04/24/2024 10:18 AM CDT Lakesha Khan MD CHEMISTRY [facility] [address] [place] [address], * (ABNORMAL) LIPID PANEL W REFLEX MEASURED LDL (09/19/2023 10:52 AM HERBARIUM CURATOR) CHOLESTEROL,TOTAL 80(L) 100 - 199 mg/dL 09/19/2023 5:59 PM HERBARIUM CURATOR [facility] Comment: Cholesterol, Total Reference Ranges Desirable <200 mg/dL Borderline 200-239 mg/dL High >=240 mg/dL TRIGLYCERIDES 54 <150 mg/dL 09/19/2023 5:59 PM HERBARIUM CURATOR [facility] HDL CHOLESTEROL 45 >40 mg/dL 5:59 PM HERBARIUM CURATOR [facility] NON-HDL CHOLESTEROL 35 <145 mg/dl 09/19/2023 5:59 PM HERBARIUM CURATOR [facility] CHOL/HDL RATIO 1.78 <4.50 09/19/2023 5:59 PM HERBARIUM CURATOR [facility] LDL CHOLESTEROL 24 <=130 mg/dL 09/19/2023 5:59 PM HERBARIUM CURATOR [facility] VLDL CHOLESTEROL 11 <=30 mg/dL 09/19/2023 5:59 PM HERBARIUM CURATOR [facility] PROVIDER ORDERED STATUS RANDOM 09/19/2023 5:59 PM HERBARIUM CURATOR [facility] Blood BLOOD SPECIMEN / Unknown Venipuncture / Unknown 09/19/2023 10:52 AM HERBARIUM CURATOR 09/19/2023 10:55 AM HERBARIUM CURATOR Sree Diamond NP CHEMISTRY [facility] [address] [place] [address], * ANTI HCV (04/16/2017 9:14 AM CDT) HEPATITIS C ANTIBODY Non-Reacti ve Non-Reacti ve 04/16/2017 3:42 PM CDT [facility] Blood BLOOD SPECIMEN / Unknown Venipuncture / Unknown 04/16/2017 9:14 AM CDT 04/16/2017 9:17 AM CDT Narrative [facility] - 04/16/2017 3:42 PM CDT Antibodies to HCV not detected; does not exclude the possibility of exposure to HCV. Jakub Soliz MD SEND OUTS [facility] [address] [place] [address], from Last 3 Months or Most Recently Relevant to Health Maintenance Advance Directives * Full Code (Latest Code Status on File) Date Activated Date Inactivated Comments 11/11/2023 6:45 PM 11/13/2023 2:02 PM Question Answer Comments Code Status Discussion: Reviewed Preferences * Full Code Date Activated Date Inactivated Comments 11/06/2023 12:28 AM 11/07/2023 2:44 PM Question Answer Comments Code Status Discussion: Unable to Assess Preferences, Provider to review later * Full Code Date Activated Date Inactivated Comments 07/26/2023 5:52 PM 07/29/2023 7:39 PM Question Answer Comments Code Status Discussion: Reviewed Preferences * Full Code Date Activated Date Inactivated Comments 05/26/2023 3:43 PM 05/29/2023 6:21 PM Question Answer Comments Code Status Discussion: Reviewed Preferences * Full Code Date Activated Date Inactivated Comments 05/26/2023 3:43 PM 05/26/2023 3:43 PM Question Answer Comments Code Status Discussion: Reviewed Preferences Care Teams Human Performance Technologist Relationship Specialty Start Date End Date Lakesha Khan MD [address] [place] [address] PCP - General Family Practice 04/30/22 Clinic, [facility] [address] [address] Cardiology - CHF 06/28/23
[2024-07-17 14:47] LABS: Troponin, Point-of-Care* 0.02 ng/ml (0.01-0.04)
[2024-07-17 14:49] LABS: Basophils Absolute Auto 0.02 K/uL (0.00-0.30); Basophils Percent Auto 0.4 % (0.0-3.0); Eosinophils Absolute Auto 0.15 K/uL (0.00-0.50); Eosinophils Percent Auto 2.7 % (0.0-7.0); Hematocrit 38.8 % (37.0-53.0); Hemoglobin* 11.8 gm/dL (13.5-17.5); Immature Granulocytes Abs Auto 0.01 K/uL (0.00-0.30); Immature Granulocytes Pct Auto 0.2 %; Lymphocytes Absolute Auto 1.54 K/uL (0.90-2.90); Lymphocytes Percent Auto 27.3 % (20-44); Mean Corpuscular HGB Conc 30 gm/dL (32-36); Mean Corpuscular Hemoglobin 25 pg (26-34); Mean Corpuscular Volume 82 fL (80-100); Neutrophils Absolute Auto 3.47 K/uL (1.7-7.0); Neutrophils Percent Auto 61.4 % (42.0-72.0); Platelet Count* 141 K/uL (140-440); RDW Coefficient of Variation % 13.7 % (11.5-15.5); Red Blood Count 4.76 m/uL (4.30-5.90); White Blood Count* 5.64 K/uL (4.50-11.00)
[2024-07-17 14:59] LABS: Slide Review Reflex No
[2024-07-17 15:10] LABS: Chloride* 109 mmol/L (96-114)
[2024-07-17 15:11] LABS: Potassium* 3.6 mmol/L (3.6-5.1); Sodium* 138 mmol/L (135-149)
[2024-07-17 15:13] LABS: Creatinine* 1.2 mg/dL (0.5-1.5); Est. Creatinine Clearance* 69.45; Estimated Glomerular Filt Rate 66 ml/min
[2024-07-17 15:14] LABS: Anion Gap 7 mEq/L (7-15); Blood Urea Nitrogen* 21 mg/dL (7-30); Carbon Dioxide* 22 mmol/L (20-32); Glucose* 127 mg/dL (60-115)
[2024-07-17 15:15] LABS: Calcium* 8.8 mg/dL (8.4-10.6)
[2024-07-17 15:22] LABS: C Reactive Protein* < 0.5 mg/dL (0.5-1.0)
[2024-07-17 15:25] LABS: Troponin I* 0.02 ng/mL (0.01-0.04)
[2024-07-17 15:39] LABS: NT Pro B Type NatriureticPept* 754 pg/mL
[2024-07-17] MEDS: LORazepam 2 MG/ML inj 0.5 MG IVP (16:29)
[2024-07-17 16:50] LABS: Troponin, Point-of-Care* 0.03 ng/ml (0.01-0.04)
[2024-07-17] MEDS: ACETAMINOPHEN 500 MG TABLET 1000 MG PO (17:31)
== END 2024-07-17 18:42 | disposition home or self-care (01) ==
PROVIDERS: Emergency Provider Family Medicine; PCP Family Medicine
DX: R07.9 Chest pain, unspecified (principal); R06.00 Dyspnea, unspecified
CPT/HCPCS: 36415; 71045; 80048; 83880; 84484; 85025; 86140; 93005; 94761; 96374; 99284; A9270; J2060; J7030

== ENCOUNTER 2024-08-02 06:02 | Emergency (ER) | payer MEDICARE, SELFPAY ==
[2024-08-02] VITALS (35 sets, daily range): BP systolic 91–146; BP diastolic 60–109; PULSE 79–105; RESP 16–18; TEMP 36.4–37.1; O2SAT 91–99; BMI 31.3
--- NOTE | 2024-08-02 06:16 | CRLHL7_ITS ---
For Patients: As a result of the Century Cures Act, medical imaging exams and procedure reports are released immediately into your electronic medical record. You may view this report before your referring provider. If you have questions, please contact your health care provider. Indication: Chest pain. Technique: Chest 1 view. Comparison: 07/17/2024. Findings/Impression: Cardiovascular and mediastinum: Stable moderate cardiomegaly. Normal mediastinum. Lungs and pleural space: Diffuse nonspecific interstitial edema. No focal infiltrates or effusions and no pneumothorax. Bones and soft tissues: No acute findings. Dictated by Ricardo Eldridge MD @ 08/02/2024 7:20:27 AM (Electronically Signed)
--- NOTE | 2024-08-02 06:18 | ED_ITS ---
HPI - Chest Pain General Chief Complaint: Chest Pain Stated Complaint: Possible heart attack--chest pain Time Seen by Provider: 08/02/24 06:11 History of Present Illness HPI narrative: Patient is a 68-year-old gentleman who presents with a chest pain that awoke him approximately 4 hours ago. Symptoms were mild and he went back to sleep. The patient had return of chest pain which was anterior and shock-like across the anterior aspect of his chest 20 minutes ago. He has had numerous visits to the emergency room for chest pain and has a history of 2 cardiac stents. Patient has a history of palpitations as well and recently saw Cardiology and is in the process of getting a event recorder placed. Patient has otherwise been feeling well no shortness a breath orthopnea no diaphoresis no nausea no vomiting. Patient has been working recently and is not had any return of symptoms until overnight tonight. EKG done upon arrival shows chronic right bundle-branch block no other acute abnormalities. Patient has taken 2 sublingual nitros at home with no improvement in symptoms. Related Data Home Medications ?Medication ?Instructions ?Recorded ?Confirmed atorvastatin 40 mg tablet 40 mg PO HS 01/08/23 07/14/24 gabapentin 300 mg capsule 1,200 mg PO BID 01/08/23 07/14/24 insulin glargine 100 unit/mL (3 20 unit subcut HS 01/08/23 07/14/24 mL) subcutaneous pen (Lantus Solostar U-100 Insulin) insulin lispro 100 unit/mL 6 - 10 unit subcut TIDWM 01/08/23 07/14/24 subcutaneous pen metformin 500 mg tablet,extended 1,000 mg PO BIDWM 01/08/23 07/14/24 release 24 hr oxycodone 5 mg tablet 5 - 10 mg PO HS PRN 05/17/23 07/14/24 clopidogrel 75 mg tablet 75 mg PO DAILY 11/11/23 07/14/24 duloxetine 30 mg capsule,delayed 30 mg PO DAILY 04/20/24 07/14/24 release insulin lispro 100 unit/mL 1 sliding scale dose subcut 05/18/24 05/18/24 subcutaneous cartridge (Humalog USEASDIRECTD U-100 Insulin) acetaminophen 500 mg tablet 500 mg PO TID PRN 07/14/24 07/14/24 aspirin 81 mg tablet,delayed 81 mg PO DAILY 07/14/24 07/14/24 release (Adult Low Dose Aspirin) empagliflozin 10 mg tablet 10 mg PO DAILY 07/14/24 07/14/24 (Jardiance) multivitamin (Daily Multi-Vitamin 1 tab PO DAILY 07/14/24 07/14/24 tablet) nitroglycerin 0.4 mg sublingual 0.4 mg sublingual Q5-15M PRN 07/14/24 07/14/24 tablet Allergies Allergy/AdvReac Type Severity Reaction Status Date / Time acetaminophen (From Allergy Mild Verified 07/14/24 14:11 Darvocet-N) oxycodone (From Percocet) Allergy Mild Verified 07/14/24 14:11 propoxyphene (From Allergy Mild Verified 07/14/24 14:11 Darvocet-N) bupropion (From Wellbutrin) Allergy Verified 07/14/24 14:11 Review of Systems Status of ROS Reports: 10 or more systems reviewed and unremarkable except as noted in History and below PFSH PFS Surgical History Amputated toe of left foot ?S98.132A - Complete traumatic amputation of one left lesser toe, initial encounter (ICD-10) Cervical vertebral fusion ?M43.22 - Fusion of spine, cervical region (ICD-10) S/P right rotator cuff repair ?Z98.890 - Other specified postprocedural states (ICD-10) History of cholecystectomy ?Z90.49 - Acquired absence of other specified parts of digestive tract (ICD- 10) History of appendectomy ?Z90.49 - Acquired absence of other specified parts of digestive tract (ICD- 10) Gastric bypass status for obesity ?Z98.84 - Bariatric surgery status (ICD-10) Social History Smoking Status: Never smoker Do you use any of these nicotine containing products: None Second hand tobacco smoke exposure: No How often do you have a drink containing alcohol: 2-3 times a week How many standard drinks containing alcohol do you have on a typical day: 1 or 2 How often do you have six or more drinks on one occasion: Never AUDIT-C Alcohol total score: 3 Non-prescribed substance use: denies use service: No Exam Narrative Exam Narrative: EXAM GENERAL: Patient appears comfortable and well. EYES: No scleral icterus. ENT: Tympanic membranes and oropharynx normal. THYROID: no thyroid nodules or thyromegaly. LYMPH: No supraclavicular or cervical lymphadenopathy. SKIN: Visible skin seen during exam normal or with benign process only. EXT: No dependent lower extremity pedal edema. HEART: Regular rate and rhythm with no murmurs, rubs, or gallops. LUNGS: Clear to auscultation bilaterally with no crackles or wheezes. ABD: Soft, non tender, non distended. PSYCH: Good eye contact, speech is not pressured. Const Vital Signs, click to edit/add: Vital Signs - 24 hr 08/02/24 06:11 08/02/24 06:27 08/02/24 06:30 Temperature 97.6 F Pulse Rate 98 98 Pulse Rate [Left Pulse Oximeter] 101 H Respiratory Rate 16 Blood Pressure Blood Pressure [Left Upper Arm] 139/88 Pulse Oximetry 92 98 96 Oxygen Delivery Method Room Air 08/02/24 06:31 08/02/24 06:45 08/02/24 06:46 Temperature Pulse Rate 96 100 103 H Pulse Rate [Left Pulse Oximeter] Respiratory Rate Blood Pressure 134/88 143/93 H Blood Pressure [Left Upper Arm] Pulse Oximetry 98 95 97 Oxygen Delivery Method 08/02/24 06:47 08/02/24 07:00 08/02/24 07:01 Temperature Pulse Rate 99 99 101 H Pulse Rate [Left Pulse Oximeter] Respiratory Rate Blood Pressure 120/88 Blood Pressure [Left Upper Arm] Pulse Oximetry 97 96 97 Oxygen Delivery Method 08/02/24 07:15 08/02/24 07:16 08/02/24 07:30 Temperature Pulse Rate 99 100 103 H Pulse Rate [Left Pulse Oximeter] Respiratory Rate Blood Pressure 122/90 H Blood Pressure [Left Upper Arm] Pulse Oximetry 95 96 96 Oxygen Delivery Method 08/02/24 07:32 08/02/24 07:45 08/02/24 07:47 Temperature Pulse Rate 104 H 104 H 102 H Pulse Rate [Left Pulse Oximeter] Respiratory Rate Blood Pressure 138/101 H 127/109 H Blood Pressure [Left Upper Arm] Pulse Oximetry 95 95 95 Oxygen Delivery Method Course Course ED Course: Patient seen and examined. Troponin basic metabolic panel CBC chest x-ray pending. Repeat troponin in 90 minutes also ordered. Vital Signs Vital signs: Initial Vital Signs Respiratory Effort Normal, Spontaneous, Non-Labored 08/02/24 06:02 Respiratory Depth Normal 08/02/24 06:02 Respiratory Pattern Normal 08/02/24 06:02 Vital Signs Temperature 97.6 F 08/02/24 06:11 Pulse Rate 101 H 08/02/24 06:11 Respiratory Rate 16 08/02/24 06:11 Blood Pressure 139/88 08/02/24 06:11 Pulse Oximetry 92 08/02/24 06:11 Oxygen Delivery Method Room Air 08/02/24 06:11 Temperature 97.6 F 08/02/24 06:11 Pulse Rate 102 H 08/02/24 07:47 Respiratory Rate 16 08/02/24 06:11 Blood Pressure 127/109 H 08/02/24 07:47 Pulse Oximetry 95 08/02/24 07:47 Oxygen Delivery Method Room Air 08/02/24 06:11 MDM - Chest Pain MDM Narrative Medical decision making narrative: Patient is a 68-year-old gentleman with history of cardiac stents on Plavix aspirin who presents with chest pain. Troponin positive at 0.49. EKG shows chronic right bundle branch block. A case discussed with Cardiology and patient will be given Lovenox and metoprolol and transferred for cardiac evaluation an angioplasty likely. Lab Data Labs: Lab Results 08/02/24 Range/Units 06:15 WBC 5.39 (4.50-11.00) K/uL RBC 4.78 (4.30-5.90) m/uL Hgb 11.8 L (13.5-17.5) gm/dL Hct 39.5 (37.0-53.0) % MCV 83 (80-100) fL MCH 25 L (26-34) pg MCHC 30 L (32-36) gm/dL RDW Coeff of Lou 14.4 (11.5-15.5) % Plt Count 182 (140-440) K/uL Neut % (Auto) 59.1 (42.0-72.0) % Lymph % (Auto) 27.3 (20-44) % [place] % (Auto) 9.1 (0.0-11.0) % Eos % (Auto) 4.1 (0.0-7.0) % Baso % (Auto) 0.4 (0.0-3.0) % Neut # (Auto) 3.19 (1.7-7.0) K/uL Lymph # (Auto) 1.47 (0.90-2.90) K/uL [place] # (Auto) 0.50 (0.00-0.90) K/UL Eos # (Auto) 0.22 (0.00-0.50) K/uL Baso # (Auto) 0.02 (0.00-0.30) K/uL Abs Immat Gran (auto) 0.00 (0.00-0.30) K/uL Imm/Tot Granulo (auto) 0.0 % Sodium 137 (135-149) mmol/L Potassium 4.0 (3.6-5.1) mmol/L Chloride 106 (96-114) mmol/L Carbon Dioxide 25 (20-32) mmol/L Anion Gap 6 L (7-15) mEq/L BUN 22 (7-30) mg/dL Creatinine 1.1 (0.5-1.5) mg/dL Estimated Creat Clear 75.77 Estimated GFR 74 ml/min Glucose 214 H (60-115) mg/dL Calcium 8.7 (8.4-10.6) mg/dL Troponin I 0.49 H* (0.01-0.04) ng/mL Discharge Plan Discharge Clinical Impression: Non-ST elevated myocardial infarction (non-STEMI) Patient Disposition: [facility] Condition: Stable Activity Level: Other Discharge Diet: Other Prescriptions: No Action oxycodone 5 mg tablet 5 - 10 mg PO HS PRN duloxetine 30 mg capsule,delayed release(DR/EC) 30 mg PO DAILY Humalog U-100 Insulin 100 unit/mL cartridge 1 sliding scale dose subcut USEASDIRECTD atorvastatin 40 mg tablet 40 mg PO HS gabapentin 300 mg capsule 1,200 mg PO BID metformin 500 mg tablet extended release 24 hr 1,000 mg PO BIDWM insulin lispro 100 unit/mL insulin pen 6 - 10 unit subcut TIDWM insulin glargine [Lantus Solostar U-100 Insulin] 100 unit/mL (3 mL) insulin pen 20 unit subcut HS clopidogrel 75 mg tablet 75 mg PO DAILY acetaminophen 500 mg tablet 500 mg PO TID PRN aspirin [Adult Low Dose Aspirin] 81 mg tablet,delayed release (DR/EC) 81 mg PO DAILY Jardiance 10 mg tablet 10 mg PO DAILY multivitamin [Daily Multi-Vitamin] Tablet 1 tab PO DAILY nitroglycerin 0.4 mg tablet, sublingual 0.4 mg sublingual Q5-15M PRN Rx Instructions: do not exceed 3 doses per episode Follow Up/Referrals: Lakesha Khan MD [Primary Care Provider] - Stand Alone Forms: [employer] Info Instructions
[2024-08-02 06:31] LABS: Basophils Absolute Auto 0.02 K/uL (0.00-0.30); Basophils Percent Auto 0.4 % (0.0-3.0); Eosinophils Absolute Auto 0.22 K/uL (0.00-0.50); Eosinophils Percent Auto 4.1 % (0.0-7.0); Hematocrit 39.5 % (37.0-53.0); Hemoglobin* 11.8 gm/dL (13.5-17.5); Lymphocytes Absolute Auto 1.47 K/uL (0.90-2.90); Lymphocytes Percent Auto 27.3 % (20-44); Mean Corpuscular HGB Conc 30 gm/dL (32-36); Mean Corpuscular Hemoglobin 25 pg (26-34); Mean Corpuscular Volume 83 fL (80-100); Monocytes Percent Auto 9.1 % (0.0-11.0); Neutrophils Absolute Auto 3.19 K/uL (1.7-7.0); Neutrophils Percent Auto 59.1 % (42.0-72.0); Platelet Count* 182 K/uL (140-440); RDW Coefficient of Variation % 14.4 % (11.5-15.5); Red Blood Count 4.78 m/uL (4.30-5.90); White Blood Count* 5.39 K/uL (4.50-11.00)
[2024-08-02 06:38] LABS: Slide Review Reflex No
[2024-08-02 07:04] LABS: Chloride* 106 mmol/L (96-114)
[2024-08-02 07:05] LABS: Sodium* 137 mmol/L (135-149)
[2024-08-02 07:07] LABS: Creatinine* 1.1 mg/dL (0.5-1.5); Est. Creatinine Clearance* 75.77; Estimated Glomerular Filt Rate 74 ml/min
[2024-08-02 07:08] LABS: Anion Gap 6 mEq/L (7-15); Blood Urea Nitrogen* 22 mg/dL (7-30); Calcium* 8.7 mg/dL (8.4-10.6); Carbon Dioxide* 25 mmol/L (20-32); Glucose* 214 mg/dL (60-115)
[2024-08-02 07:23] LABS: Troponin I* 0.49 ng/mL (0.01-0.04)
[2024-08-02] MEDS: METOPROLOL TARTRATE 25 MG TABLET PO (08:16)
[2024-08-02] MEDS: ENOXAPARIN 120 MG/0.8 ML INJ 110 MG SUBCUT (08:17)
[2024-08-02] MEDS: NITROGLYCERIN 0.4 MG TAB.SUBL SUBLINGUAL (09:39)
[2024-08-02] MEDS: 0.9 % SODIUM CHLORIDE 500 ML 500 ML IV (10:06)
[2024-08-02 11:15] LABS: Troponin I* 0.49 ng/mL (0.01-0.04)
== END 2024-08-02 12:05 | disposition short-term general hospital (02) ==
PROVIDERS: Internal Medicine; Emergency Provider Emergency Medicine; PCP Family Medicine
DX: I21.4 Non-ST elevation (NSTEMI) myocardial infarction (principal)
CPT/HCPCS: 36415; 71045; 80048; 84484; 85025; 93005; 96360; 99283; 99285; 99291; A9270; J1650; J7030

== ENCOUNTER 2024-08-02 11:50 | Outpatient (CLI) | payer MEDICARE, SELFPAY | END 2024-08-02 11:51 | disposition home or self-care (01) | LOC: AMB 08-04 13:53 | PROVIDERS: PCP Family Medicine; Visit Provider Emergency Medicine | DX: I21.4 Non-ST elevation (NSTEMI) myocardial infarction (principal) | CPT/HCPCS: A0425; A0427 ==

== ENCOUNTER 2024-10-24 19:04 | Emergency (ER) | payer MEDICARE, SELFPAY ==
--- OUTSIDE RECORDS SUMMARY | 2024-10-24 19:06 | XMS_ITS | Continuity of Care Document ---
Author Organization [facility] Address [address] [address] [place] [address] Phone Care Team Providers Care Manager Technical Services Name Role Phone Unavailable Unavailable Unavailable Allergies, [...] Diagnoses Date Provider Providers Copied on Encounter [facility], [address] [address], [place], [id number], [place] tel:[phone] [facility] Podiatry No Information No Information [facility], [address] [address], [place], [id number], tel:[phone] [facility] 1st Care f/u gr toe procedure (chief complaint) No Information No Information Offic/outpt E m [facility], [facility], [address] [address], [place], [place], [id number], [place] tel:[phone] [facility] 1st Care Left great toe drainage/re [...]
--- OUTSIDE RECORDS SUMMARY | 2024-10-24 19:06 | XMS_ITS | Clinical Summary ---
Author Organization [facility] Address [address] [place] [id number] Care Team Providers Care Manager User Interface Name Role Phone Lakesha Khan MD Primary Care Provider Clinic, [facility] Unavailable [phone] [facility] [place] Unavailable [phone] Allergies Active Allergy Reactions Criticality Noted Date Comments Bupropion Other - Describe In Comment Field,Dizziness 06/02/2013 light headed Oxycodone Confusion Low 03/20/2023 gets really stupid gets really stupid Oxycodone-Acetaminophen Other - Describe In Comment Field,Mental Status Change,Nausea And Vomiting 06/02/2013 pt has hot flashes shakes Propoxyphene-Acetaminoph en Other - Describe In Comment Field,Mental Status Change 06/02/2013 hot flashes Spironolactone Dizziness,Headache 07/28/2023 Splitting headache when increased dose Medications MULTIVITAMIN TAB take 1 tablet by oral route once daily with food 0 008 Active acetaminophen (TYLENOL EXTRA STRGTH) 500 mg tabletIndications: Closed fracture of multiple ribs of right side, initial encounter Take 1 Tablet (500 mg) by mouth 3 times daily if needed for Pain. Max acetaminophen dose: 4000mg in 24 hrs. 0 022 Active Insulin [place], Disposable, (Pen Needle) 32 gauge x /32Indications:T ype 2 diabetes mellitus with diabetic polyneuropathy, with long-term current use of insulin (HC) As directed. Remove the 2 covers on the insulin pen needle before administering insulin dose four times daily 400 Each 3 023 Active nitroglycerin (NITROSTAT) 0.4 mg sublingual tabletIndications: ASHD (arteriosclerotic heart disease),S/P drug eluting coronary stent placement Place 1 Tablet (0.4 mg) under the tongue every 5 minutes if needed for Chest Pain. Up to 3 tablets in 15 minutes. 25 Tablet 1 07/29/20 23 2:49 PM AIRCRAFT ENGINE INSTALLER 023 Active FreeStyle Jordana 2 ReaderIndications: Type 2 diabetes mellitus with diabetic polyneuropathy, with long-term current use of insulin (HC) To be used to read blood sugars per patrol community service officer's directions. 1 Each 024 Active empagliflozin (JARDIANCE) 10 mg tabletIndications: Type 2 diabetes mellitus with diabetic polyneuropathy, with long-term current use of insulin (HC) Take 1 Tablet (10 mg) by mouth once daily. 100 Tablet 3 024 Active DULoxetine (CYMBALTA) 30 mg Delayed-release capsuleIndications :Depressed mood Take 1 Capsule (30 mg) by mouth once daily. 100 Capsule 3 024 Active continuous glucose monitor SENSOR KIT (FreeStyle Jordana 2 Sensor)Indications :Type 2 diabetes mellitus with diabetic polyneuropathy, with long-term current use of insulin (HC) Change sensor every 14 days AND USE DIRECTED 6 Each 3 024 Active gabapentin (NEURONTIN) 300 mg capsuleIndications :Spinal stenosis of lumbar region with neurogenic claudication Take 4 Capsules (1,200 mg) by mouth two times daily. 800 Capsule 3 024 Active Additional Information Patient taking differently:1,200 mg Oral BID,Taking 3 tablets a day, Reported on 10/16/2024 metFORMIN (GLUCOPHAGE XR) 500 mg Extended-Release tabletIndications: Type 2 diabetes mellitus with diabetic polyneuropathy, with long-term current use of insulin (HC) TAKE TWO TABLETS BY MOUTH TWICE DAILY WITH MEALS 400 Tablet 3 024 Active atorvastatin (LIPITOR) 40 mg tabletIndications: Type 2 diabetes mellitus with diabetic polyneuropathy, with long-term current use of insulin (HC) TAKE ONE TABLET BY MOUTH AT BEDTIME 100 Tablet 2 024 Active aspirin (ECOTRIN) 81 mg enteric coated tabletIndications: Essential hypertension Take 1 Tablet (81 mg) by mouth once daily with a meal. 90 Tablet 3 024 Active Lantus Solostar U-100 Insulin 100 unit/mL (3 mL) penIndications:Typ e 2 diabetes mellitus with diabetic polyneuropathy, with long-term current use of insulin (HC) Inject 20 units subcutaneous before bedtime. 20 mL 3 024 Active insulin lispro, U-100, (HUMALOG KWIKPEN; ADMELOG SOLOSTAR) 100 unit/mL inpn penIndications:Typ e 2 diabetes mellitus with diabetic polyneuropathy, with long-term current use of insulin (HC) Inject 6-10 units before each meal. Max units per day 30. Product desired: HUMALOG KWIKPEN 30 mL 3 024 Active ammonium lactate 12 % lotion Apply topically to affected area(s) once daily if needed for Dry Skin. Active cyanocobalamin (VITAMIN B12) 1,[address] 1,000 mcg under the tongue once daily. Active metoprolol succinate (Toprol XL) 25 mg Sustained-Release tabletIndications: Coronary atherosclerosis due to calcified coronary lesion of pit [place] artery,Acute HFrEF (heart failure with reduced ejection fraction) () Take 1 Tablet (25 mg) by mouth once daily. 30 Tablet 1 08/14/19 25 5:50 PM AIRCRAFT ENGINE INSTALLER 025 Active sennosides (SENNA) 8.6 mg tabletIndications: Constipation, unspecified constipation type Take 1-2 Tablets (8.6-17.2 mg) by mouth 2 times daily if needed for Constipation. 20 Tablet 025 Active Additional Information Patient not taking.Reported on 10/16/2024 LORazepam (ATIVAN) 0.5 mg tabIndications:Cla ustrophobia Take 1 Tablet (0.5 mg) by mouth one time if needed for Anxiety (Take 30 minutes prior to MRI) for up to 1 dose. 1 Tablet 025 Active losartan (COZAAR) 25 mg tabletIndications: NSTEMI (non-ST elevated myocardial infarction) () Take 0.5 Tablets (12.5 mg) by mouth once daily. 45 Tablet 1 025 Active traMADoL (ULTRAM) 50 mg tabletIndications: Closed fracture of right scapula, unspecified part of scapula, initial encounter Take 1-2 Tablets (50-100 mg) by mouth every 12 hours. 30 Tablet 025 Active clopidogreL (PLAVIX) 75 mg tabletIndications: NSTEMI (non-ST elevated myocardial infarction) (HC) TAKE ONE TABLET BY MOUTH ONE TIME DAILY 90 Tablet 025 Active clopidogreL (PLAVIX) 75 mg tabletIndications: NSTEMI (non-ST elevated myocardial infarction) (HC) TAKE ONE TABLET BY MOUTH ONE TIME DAILY 90 Tablet 024 2024 Discontinued losartan (COZAAR) 25 mg tabletIndications: NSTEMI (non-ST elevated myocardial infarction) (HC) Take 0.5 Tablets (12.5 mg) by mouth once daily. 15 Tablet 1 08/14/19 25 5:50 PM AIRCRAFT ENGINE INSTALLER 025 2024 Discontinued traMADoL (ULTRAM) 50 mg tabletIndications: Closed fracture of right scapula, unspecified part of scapula, initial encounter Take 1-2 Tablets (50-100 mg) by mouth every 12 hours. 30 Tablet 025 2024 Discontinued Active Problems Problem Noted Date Diagnosed Date Skin ulcer, unspecified ulcer stage 08/19/2024 Acute on chronic systolic (congestive) heart maykel lure 08/19/2024 Other ventricular tachycardia 08/19/2024 Platelets decreased 04/24/2024 Syncope 11/06/2023 Troponin level elevated 11/06/2023 Ischemic cardiomyopathy 11/06/2023 Chronic systolic CHF (congestive heart failure) 07/26/2023 Stage 3 chronic kidney disease 07/26/2023 NSTEMI (non-ST elevated myocardial infarction) 1 09/26/2022 Acute HFrEF (heart failure with reduced ejection fraction) 05/27/2023 ASCVD (arteriosclerotic cardiovascular disease) 05/27/2023 Overview (07/31/2023): [id number] MYOCARDIAL INFARCTION on 07/26/23. He is to stay on Plavix and aspirin for at least a year. Coronary atherosclerosis due to calcified coronary lesion of pit river artery 05/27/2023 Sleep apnea 11/29/2022 11/29/2022 Overview [...] failure 05/26/2023 05/27/[address] 09/14/2020 Encounters Date Type Department Care Team Description 10/23/2024 Travel 10/16/2024 9:30 AM AIRCRAFT ENGINE INSTALLER Office Visit [facility] [place] [address] [phone] Laura Rosario MD Follow Up (follow up to testing/echo and labs prior/device check 10/12 /PT states feeling good/No cardiac symptoms today /Discuss testing/occ dizziness ) 10/16/2024 8:24 AM AIRCRAFT ENGINE INSTALLER - 10/16/2024 11:59 PM AIRCRAFT ENGINE INSTALLER Hospital Encounter [place] [address] [address] [phone] Ramona Gonzalez, NOEMI Ischemic cardiomyopathy 10/16/2024 8:16 AM AIRCRAFT ENGINE INSTALLER - 10/16/2024 8:23 AM AIRCRAFT ENGINE INSTALLER Hospital Encounter [place] [address] [address] [id number] Ischemic cardiomyopathy; Congestive heart failure, unspecified HF chronicity, unspecified heart failure type (HC); Heart failure, unspecified HF chronicity, unspecified heart failure type (HC) 10/16/2024 Travel 10/13/2024 Refill [facility] [address] [place] [facility] [place] [address] Lakesha Khan MD Refill Request (Clopidogrel) 10/11/2024 Travel 10/07/2024 Travel 10/04/2024 Refill [facility] [address] [place] [address] Lakesha Khan MD Refill Request (Tramadol) 10/02/2024 Refill [facility] [place] [address] [place] [address] Luis Manuel Lara MD Refill Request (Losartan) 09/30/2024 11:20 AM AIRCRAFT ENGINE INSTALLER Office Visit [facility] [address] [place] [address] Sancho Madrid MD Musculoskeletal Problem (Follow up right scapular fracture, DOI 08/11/24) 09/30/2024 Travel 09/25/2024 Travel 09/24/2024 10:00 AM AIRCRAFT ENGINE INSTALLER Office Visit [address] [address] Lakesha Khan MD Hospital F/U ( MRI fracture scapula, fell ) 09/24/2024 Travel 09/21/2024 2:30 PM AIRCRAFT ENGINE INSTALLER Ancillary Procedure [facility] [address] [place] [address] 09/21/2024 2:00 PM AIRCRAFT ENGINE INSTALLER Office Visit [address] [address] Sancho Madrid MD Musculoskeletal Problem (Follow up right scapular fracture, DOI 08/11/24) 09/21/2024 Travel 09/19/2024 Travel 09/09/2024 11:20 AM AIRCRAFT ENGINE INSTALLER Office Visit [address] [address] Sancho Madrid MD Musculoskeletal Problem (Follow up right scapular fracture, DOI 08/11/24/) 09/09/2024 10:30 AM AIRCRAFT ENGINE INSTALLER Ancillary Procedure [facility] [address] [facility] [place] [address] 09/09/2024 Travel 09/07/2024 1:00 PM AIRCRAFT ENGINE INSTALLER Office Visit [facility] [place] [address] [facility] [address] [place] [address] Ramona Gonzalez, NOEMI CV Heart Failure Est (2 WK POST HOSPT CHF F/U /LABS DONE PRIOR AT [facility]/DX:I25.5 (ICD-10-CM) - Ischemic cardiomyopathy //Pt states he has had a few dizzy spells over the last couple weeks. Pt states the dizzy spells have been happening for years. ) 09/07/2024 Travel 09/04/2024 Travel 09/02/2024 8:30 AM AIRCRAFT ENGINE INSTALLER Orders Only [facility] [address] [facility] [place] [address] Lab, [place] [facility] 09/02/2024 Travel 08/28/2024 Travel 08/27/2024 4:20 PM AIRCRAFT ENGINE INSTALLER Office Visit [facility] [address] [facility] [place] [address] Sancho Madrid MD Musculoskeletal Problem (Consult right clavicle/shoulder ) 08/27/2024 10:15 AM AIRCRAFT ENGINE INSTALLER Ancillary Procedure [facility] [address] [place] [address] 08/27/2024 Travel 08/25/2024 Telephone [facility] [address] [place] [address] Lakesha Khan MD Questions (MEDICATION FOR MRI) 08/24/[address] [place] [address] Lakesha Khan MD Medication Management (MRI sedation needed) 08/24/2024 Telephone [facility] [address] [facility] [address] [place] [phone] Ramona Gonzalez CNS Lab (Lab Orders needed) 08/22/2024 Travel 08/19/2024 8:45 AM AIRCRAFT ENGINE INSTALLER Office Visit [facility] [address] [place] [address] Lakesha Khan MD Hospital F/U (ANW 08/02 Heart Surgery, 1/ Right shoulder tore Rotator cuff) 08/19/2024 Travel 08/18/2024 Telephone [facility] [address] [place] [address] Lakesha Khan MD Returning call from Ortho Referral Scheduling 08/17/2024 12:45 PM AIRCRAFT ENGINE INSTALLER Home Care Visit [facility] [address] [place] [phone] Aracelis Paulino, PT PT - [facility] START OF CARE 08/17/2024 Telephone [facility] [address] [place] [address] Aracelis Paulino, PT Home Care (MRI Order) 08/17/2024 Plan of Care Documentation [facility] [address] [place] [phone] 08/17/2024 Telephone [facility] [address] [place] [address] Alexa Edward RN, CCRN LINQ scheduling 08/17/2024 Travel 08/17/2024 Telephone [facility] [address] [place] [phone] Suzan Gloria Appointment 08/17/2024 Patient Outreach [facility] [address] [place] [address] Tata Hinton, RN Primary RN Care Management; Hospital F/U (LACE 83) 08/13/2024 Orders Only [facility] [address] [place] [address] Ramona Gonzalez CNS <No scans attached> 08/07/2024 Travel 08/03/2024 Travel 08/02/2024 1:02 PM AIRCRAFT ENGINE INSTALLER - 08/15/2024 1:58 PM AIRCRAFT ENGINE INSTALLER Hospital Encounter [facility] [address] [place] [address] [place], MD Axel Herrera Kristal Sue, MD Lewis, Tammi, NOREEN Coronary atherosclerosis due to calcified coronary lesion of pit river artery (Primary Dx); Cardiovascular symptoms; Ischemic cardiomyopathy; Platelets decreased; Troponin level elevated; NSTEMI (non-ST elevated myocardial infarction) (HC); Chronic systolic CHF (congestive heart failure) (HC); ASCVD (arteriosclerotic cardiovascular disease); Acute HFrEF (heart failure with reduced ejection fraction) (HC); Moderate episode of recurrent major depressive disorder (HC); Presence of coronary angioplasty implant and graft; Other specified postprocedural states; Old myocardial infarction; Duodenal perforation (HC); Chronic diastolic heart failure (HC); Adenomatous polyp of ascending colon; Sensorineural hearing loss, bilateral; Orthostatic hypotension; Type 2 diabetes mellitus with diabetic polyneuropathy, with long-term current use of insulin (HC); Essential hypertension; 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); Acute pain of right shoulder; Constipation, unspecified constipation type Discharge Disposition: Home Health 07/31/2024 9:05 AM AIRCRAFT ENGINE INSTALLER Office Visit [facility] [address] [place] [address] Lakesha Khan MD [facility] Med (update, still feeling right side zapts) 07/31/2024 Telephone [facility] [place] [address] [facility] [address] [place] [phone] Brenton Estrada MD Prior Authorization (LINQ) 07/31/2024 Travel 07/27/2024 8:30 AM AIRCRAFT ENGINE INSTALLER Office Visit [facility] [place] [address] [facility] [address] [place] [phone] Luis Manuel Lara MD Follow Up (F/U. Pt states he is here as a f/u to a f/u, maximiliano estrada on 07/24. Has been going to ED for electrical sensations. Pt states he had one this morning, may be getting one soon. Has had ekg's during these episodes but nothing appears. Phone note 07/22) 07/26/2024 Travel from Last 3 Months Immunizations Immunization Administration Dates Next Due COVID-19 VACCINE SPIKEVAX [...] Family History Medical History Relation Name Comments Cancer-colon Mother padmini age 69 Heart Disease Sister 1 Cancer-prostate No Family History Diabetes No Family History Relation Name Status Comments Father Mother padmini Sister 1 Alive Sister 2 Alive Social History Tobacco Use Types Packs/Day Years Used Date Smoking Tobacco: Never Smokeless Tobacco: Never Tobacco Cessation:Counseling Given: No Alcohol Use Standard Drinks/Week Comments Yes 1 (1 standard drink = 0.6 oz pur e alcohol) socially PHQ-2 Answer Date Recorded PHQ-2 TOTAL SCORE 0 10/08/2023 Social Connections Answer Date Recorded Do you often feel lonely or isolated from those around you? 0 08/03/2024 Financial Resource Strain Answer Date R ecorded Difficulty of Paying Living Expenses 3 11/29/2022 Difficulty of Paying Living Expenses Not on file 11/29/2022 Food Insecurity Answer Date Recorded Do you worry your food will run out before you are able to buy more? 1 08/03/2024 Transportation Needs Answer Date Record ed Does lack of transportation keep you from medica l appointments? 1 08/03/2024 Does lack of transportation keep you from work, meetings or getting things that you need? 1 08/03/2024 Housing Stability Answer Date Recorded What is your housing situation today? 1 08/03/2024 Interpersonal Safety Answer Date Record ed Are you being hit, kicked, p ushed or yelled at (see row info)? No 08/03/2024 Interpersonal Safety Abuse 12 - 18 Not on file 08/03/2024 Interpersonal Safety Ambulatory Vulnerability No t on file 08/03/2024 Utilities Answer Date Recorded Do you have trouble paying f or utilities (for example, heat, electricity, water, phone)? 1 08/03/2024 Sex and Gender Information Value Date Recorded Sex Assigned at Male 04/28/2021 10:10 PM CDT Legal Sex Male 6:41 AM AIRCRAFT ENGINE INSTALLER Gender Identity Male 04/28/2021 10:10 PM CDT Sexual Orientation Straight 04/28/2021 10 :10 PM CDT Occupation Industry Job Start Date Job End Date Not on file Not on file Not on file Not on file Obstetrics History Last Filed Vital Signs Vital Sign Reading Time Taken Comments Blood Pressure 117/76 10/16/2024 9:14 AM AIRCRAFT ENGINE INSTALLER Pulse 95 10/16/2024 9:14 AM AIRCRAFT ENGINE INSTALLER Temperature 36.4 C (97.5 F) 09/30/2024 11:17 AM AIRCRAFT ENGINE INSTALLER Respiratory Rate 18 08/17/2024 1:37 PM AIRCRAFT ENGINE INSTALLER Oxygen Saturation 98% 10/16/2024 9:14 AM AIRCRAFT ENGINE INSTALLER Inhaled Oxygen Concentration - - Weight 107.1 kg (236 lb 1.6 oz) 10/16/2024 9:14 AM AIRCRAFT ENGINE INSTALLER Height 188 cm (6' 2) 10/16/2024 9:14 AM AIRCRAFT ENGINE INSTALLER Body Mass Index 30.31 10/16/2024 9:14 AM AIRCRAFT ENGINE INSTALLER Plan of Treatment Upcoming Encounters Date Type Department Care Team (Late st Contact Info) Description 10/28/2024 11:20 AM CDT Office Visit [facility] [address] [place] [address] Sancho Madrid MD [address] [place] [address] 11/12/2024 8:20 AM CDT Office Visit [facility] [address] [place] [address] Lakesha Khan MD [address] [place] [address] 11/27/2024 9:30 AM CDT Appointment [facility] [address] [place] [address] 12/07/2024 11:00 AM CDT Office Visit [facility] [address] [facility] [address] [place] [phone] Brenton Estrada MD [address] [facility] [address] [place] [address] 12/15/2024 9:30 AM CDT Office Visit [facility] [address] [facility] [address] [place] [phone] Buzz Jolly, [facility] [address] [place] [address] Health Maintenance Due Date Last Done Comments Medicare Wellness for age 65+ 02/19/2024 02/18/2023 Tetanus booster 08/13/2024 08/13/2014, 08/2005, 08/28/1999 Depression screening for age 12+ 10/07/2024 10/07/2023, 08/19/2023, 08/15/2023, Additional history exists COVID-19 vaccine series ( season) 2024 05/07/2024, 11/21/2023, 05/14/2023, Additional history exists Fecal testing sDNA-FIT (Corbin guard) for age 45-75 12/14/2024 12/14/2021 BMI (ht and wt on same day) for age 18+ 10/16/2025 10/16/2024, 09/07/2024, 07/27/2024, Additional history exists Lipids for age 45-75 08/02/2029 08/02/2024, 09/19/2023, 05/27/2023, Additional history exists Tdap Completed 08/13/2014 Hepatitis C screening for ag e 18-79 Completed 04/16/2017 Zoster (shingles) series for age 50+ Completed 07/29/2020, 12/03/2018 Pneumococcal series for age 50+ Completed 04/30/2022, 05/26/2013, 06/19/2006, Additional history exists RSV vaccine for adults or Completed 06/20/2023 Influenza Vaccine Completed 05/07/2024, , 05/20/2020, Additional history exists Procedures Procedure Name Priority Date/Time Associated Diagnosis Comments ECHO TTE LIMITED W CONTRAST Routine 10/16/2024 9:02 AM AIRCRAFT ENGINE INSTALLER Ischemic cardiomyopathy FERRITIN Today 10/16/2024 8:23 AM AIRCRAFT ENGINE INSTALLER Ischemic cardiomyopathy Heart failure, unspecified HF chronicity, unspecified heart failure type (HC) IRON Today 10/16/2024 8:23 AM AIRCRAFT ENGINE INSTALLER Ischemic cardiomyopathy Heart failure, unspecified HF chronicity, unspecified heart failure type (HC) PRO-BNP Today 10/16/2024 8:23 AM AIRCRAFT ENGINE INSTALLER Ischemic cardiomyopathy Congestive heart failure, unspecified HF chronicity, unspecified heart failure type (HC) BASIC METABOLIC PANEL Today 10/16/2024 8:23 AM AIRCRAFT ENGINE INSTALLER Ischemic cardiomyopathy XR RIBS RIGHT AND PA CHEST MINIMUM 3 VIEWS Routine 09/21/2024 2:40 PM AIRCRAFT ENGINE INSTALLER Acute pain of right shoulder Closed nondisplaced fracture of body of right scapula with routine healing, subsequent encounter Rib pain on right side CT SCAPULA RIGHT WO FREDI 09/09/2024 1 2:04 PM AIRCRAFT ENGINE INSTALLER Acute pain of right shoulder Closed fracture of right scapula, unspecified part of scapula, initial encounter BASIC METABOLIC PANEL Routine 09/02/2024 8:10 AM AIRCRAFT ENGINE INSTALLER Chronic systolic (congestive) heart failure (HC) MAGNESIUM Routine 09/02/2024 8:10 AM AIRCRAFT ENGINE INSTALLER Chronic systolic (congestive) heart failure (HC) PRO-BNP Routine 09/02/2024 8:10 AM AIRCRAFT ENGINE INSTALLER Chronic systolic (congestive) heart failure (HC) MR SHOULDER RIGHT WO Routine 08/27/2024 10:31 AM AIRCRAFT ENGINE INSTALLER Acute pain of right shoulder Accidental fall, subsequent encounter URINE ALBUMIN TO CREATININE RATIO, RANDOM Routine 08/19/2024 10:28 AM AIRCRAFT ENGINE INSTALLER Type 2 diabetes mellitus with chronic kidney disease, with long-term current use of insulin, unspecified CKD stage (HC) HEMOGLOBIN Routine 08/19/2024 10:20 AM AIRCRAFT ENGINE INSTALLER Hospital discharge follow-up Anemia, unspecified type PRO-BNP Routine 08/19/2024 10:20 AM AIRCRAFT ENGINE INSTALLER Chronic systolic (congestive) heart failure (HC) BASIC METABOLIC PANEL Routine 08/19/2024 10:19 AM AIRCRAFT ENGINE INSTALLER Hospital discharge follow-up HEMOGLOBIN A1C MONITORING (POCT) Routine 08/19/2024 10:19 AM AIRCRAFT ENGINE INSTALLER Type 2 diabetes mellitus with chronic kidney disease, with long-term current use of insulin, unspecified CKD stage (HC) BASIC METABOLIC PANEL Routine 08/19/2024 10:18 AM AIRCRAFT ENGINE INSTALLER Chronic systolic (congestive) heart failure (HC) GLUCOSE METER Timed 08/15/2024 11:28 AM AIRCRAFT ENGINE INSTALLER GLUCOSE METER Timed 08/15/2024 8:11 AM AIRCRAFT ENGINE INSTALLER SCAN-CARDIAC STRIP 08/15/2024 7: 30 AM AIRCRAFT ENGINE INSTALLER GLUCOSE METER Timed 08/15/2024 7:02 AM AIRCRAFT ENGINE INSTALLER POTASSIUM Early AM 08/15/2024 6:30 AM AIRCRAFT ENGINE INSTALLER MAGNESIUM Early AM 08/15/2024 6:30 AM AIRCRAFT ENGINE INSTALLER HEMATOCRIT Early AM 08/15/2024 6:30 AM AIRCRAFT ENGINE INSTALLER HEMOGLOBIN Early AM 08/15/2024 6:30 AM AIRCRAFT ENGINE INSTALLER PLATELET COUNT Early AM 08/15/2024 6:30 AM AIRCRAFT ENGINE INSTALLER SCAN-CARDIAC STRIP 08/14/2024 11 :46 PM AIRCRAFT ENGINE INSTALLER GLUCOSE METER Timed 08/14/2024 10:18 PM AIRCRAFT ENGINE INSTALLER GLUCOSE METER Timed 08/14/2024 5:23 PM AIRCRAFT ENGINE INSTALLER GLUCOSE METER Timed 08/14/2024 1:03 PM AIRCRAFT ENGINE INSTALLER SCAN-CARDIAC STRIP 08/14/2024 10 :23 AM AIRCRAFT ENGINE INSTALLER SCAN-CARDIAC STRIP 08/14/2024 9: 56 AM AIRCRAFT ENGINE INSTALLER GLUCOSE METER Timed 08/14/2024 8:54 AM AIRCRAFT ENGINE INSTALLER BASIC METABOLIC PANEL Early AM 08/14/2024 8:05 AM AIRCRAFT ENGINE INSTALLER CBC W PLT NO DIFF Early AM 08/14/2024 8:0 5 AM AIRCRAFT ENGINE INSTALLER MAGNESIUM Early AM 08/14/2024 8:05 AM AIRCRAFT ENGINE INSTALLER SCAN-CARDIAC STRIP 08/14/2024 3: 11 AM AIRCRAFT ENGINE INSTALLER GLUCOSE METER Timed 08/13/2024 9:55 PM AIRCRAFT ENGINE INSTALLER GLUCOSE METER Timed 08/13/2024 5:23 PM AIRCRAFT ENGINE INSTALLER SCAN-CARDIAC STRIP 08/13/2024 5: 18 PM AIRCRAFT ENGINE INSTALLER EKG 12 LEAD FREDI 08/13/2024 5:16 PM AIRCRAFT ENGINE INSTALLER GLUCOSE METER Timed 08/13/2024 4:18 PM AIRCRAFT ENGINE INSTALLER GLUCOSE METER Timed 08/13/2024 2:44 PM AIRCRAFT ENGINE INSTALLER HCHG ACTIVATED CLOTTING TM CV Timed 08/13/2024 2:03 PM AIRCRAFT ENGINE INSTALLER HCHG ACTIVATED CLOTTING TM CV Timed 08/13/2024 1:50 PM AIRCRAFT ENGINE INSTALLER HCHG ACTIVATED CLOTTING TM CV Timed 08/13/2024 1:12 PM AIRCRAFT ENGINE INSTALLER HCHG ACTIVATED CLOTTING TM CV Timed 08/13/2024 12:36 PM AIRCRAFT ENGINE INSTALLER HCHG ACTIVATED CLOTTING TM CV Timed 08/13/2024 12:12 PM AIRCRAFT ENGINE INSTALLER HCHG ACTIVATED CLOTTING TM CV Timed 08/13/2024 11:43 AM AIRCRAFT ENGINE INSTALLER CVL CORONARY ANGIOGRAM POSS PCI Routine 08/13/2024 11:14 AM AIRCRAFT ENGINE INSTALLER Cardiovascular symptoms SCAN-CARDIAC STRIP 08/13/2024 8: 42 AM AIRCRAFT ENGINE INSTALLER GLUCOSE METER Timed 08/13/2024 7:48 AM AIRCRAFT ENGINE INSTALLER MAGNESIUM Early AM 08/13/2024 7:48 AM AIRCRAFT ENGINE INSTALLER BASIC METABOLIC PANEL Early AM 08/13/2024 7:48 AM AIRCRAFT ENGINE INSTALLER HEMATOCRIT Early AM 08/13/2024 7:48 AM AIRCRAFT ENGINE INSTALLER HEMOGLOBIN Early AM 08/13/2024 7:48 AM AIRCRAFT ENGINE INSTALLER PLATELET COUNT Early AM 08/13/2024 7:48 AM AIRCRAFT ENGINE INSTALLER GLUCOSE METER Timed 08/12/2024 9:46 PM AIRCRAFT ENGINE INSTALLER MAGNESIUM Timed 08/12/2024 7:07 PM AIRCRAFT ENGINE INSTALLER GLUCOSE METER Timed 08/12/2024 5:20 PM AIRCRAFT ENGINE INSTALLER EKG 12 LEAD STAT 08/12/2024 3:03 PM AIRCRAFT ENGINE INSTALLER BLOOD GAS,VENOUS STAT 08/12/2024 2:20 PM AIRCRAFT ENGINE INSTALLER LACTATE VENOUS STAT 08/12/2024 2:20 PM AIRCRAFT ENGINE INSTALLER GLUCOSE METER Timed 08/12/2024 1:57 PM AIRCRAFT ENGINE INSTALLER TROPONIN T (HS) ONE TIME Today 08/12/2024 1:21 PM AIRCRAFT ENGINE INSTALLER EKG 12 LEAD STAT 08/12/2024 11:58 AM AIRCRAFT ENGINE INSTALLER GLUCOSE METER Timed 08/12/2024 11:28 AM AIRCRAFT ENGINE INSTALLER PRO-BNP FREDI 08/12/2024 7:52 AM AIRCRAFT ENGINE INSTALLER MAGNESIUM Early AM 08/12/2024 7:52 AM AIRCRAFT ENGINE INSTALLER BASIC METABOLIC PANEL Early AM 08/12/2024 7:52 AM AIRCRAFT ENGINE INSTALLER HEMATOCRIT Early AM 08/12/2024 7:52 AM AIRCRAFT ENGINE INSTALLER HEMOGLOBIN Early AM 08/12/2024 7:52 AM AIRCRAFT ENGINE INSTALLER PLATELET COUNT Early AM 08/12/2024 7:52 AM AIRCRAFT ENGINE INSTALLER GLUCOSE METER Timed 08/12/2024 7:38 AM AIRCRAFT ENGINE INSTALLER SCAN-CARDIAC STRIP 08/12/2024 7: 36 AM AIRCRAFT ENGINE INSTALLER SCAN-CARDIAC STRIP 08/12/2024 4: 15 AM AIRCRAFT ENGINE INSTALLER GLUCOSE METER Timed 08/11/2024 10:00 PM AIRCRAFT ENGINE INSTALLER XR SHOULDER 3 VIEWS RIGHT STAT 08/11/2024 7:55 PM AIRCRAFT ENGINE INSTALLER XR HIP 2 OR 3 VIEWS W PELVIS RIGHT STAT 08/11/2024 7:55 PM AIRCRAFT ENGINE INSTALLER GLUCOSE METER Timed 08/11/2024 6:23 PM AIRCRAFT ENGINE INSTALLER SCAN-CARDIAC STRIP 08/11/2024 5: [address] [employer] CT SPINE CERVICAL WO STAT 08/11/2024 5:16 [address] [employer] CT HEAD BRAIN WO STAT 08/11/2024 5:08 PM AIRCRAFT ENGINE INSTALLER TROPONIN T (HS) ONE TIME STAT 08/11/2024 4:18 PM AIRCRAFT ENGINE INSTALLER EKG 12 LEAD STAT 08/11/2024 3:01 PM AIRCRAFT ENGINE INSTALLER GLUCOSE METER Timed 08/11/2024 11:28 AM AIRCRAFT ENGINE INSTALLER GLUCOSE METER Timed 08/11/2024 7:33 AM AIRCRAFT ENGINE INSTALLER SCAN-CARDIAC STRIP 08/11/2024 7: 23 AM AIRCRAFT ENGINE INSTALLER MAGNESIUM FREDI 08/11/2024 7:00 AM AIRCRAFT ENGINE INSTALLER BASIC METABOLIC PANEL Early AM 08/11/2024 7:00 AM AIRCRAFT ENGINE INSTALLER HEMATOCRIT Early AM 08/11/2024 7:00 AM AIRCRAFT ENGINE INSTALLER HEMOGLOBIN Early AM 08/11/2024 7:00 AM AIRCRAFT ENGINE INSTALLER PLATELET COUNT Early AM 08/11/2024 7:00 AM AIRCRAFT ENGINE INSTALLER SCAN-CARDIAC STRIP 08/11/2024 5: 57 AM AIRCRAFT ENGINE INSTALLER EKG 12 LEAD STAT 08/10/2024 11:17 PM AIRCRAFT ENGINE INSTALLER GLUCOSE METER Timed 08/10/2024 10:33 PM AIRCRAFT ENGINE INSTALLER MAGNESIUM Timed 08/10/2024 7:30 PM AIRCRAFT ENGINE INSTALLER EKG 12 LEAD STAT 08/10/2024 5:32 PM AIRCRAFT ENGINE INSTALLER GLUCOSE METER Timed 08/10/2024 5:27 PM AIRCRAFT ENGINE INSTALLER POTASSIUM Timed 08/10/2024 4:35 PM AIRCRAFT ENGINE INSTALLER GLUCOSE METER Timed 08/10/2024 12:30 PM AIRCRAFT ENGINE INSTALLER SCAN-CARDIAC STRIP 08/10/2024 10 :30 AM AIRCRAFT ENGINE INSTALLER GLUCOSE METER Timed 08/10/2024 10:08 AM AIRCRAFT ENGINE INSTALLER MAGNESIUM FREDI 08/10/2024 9:11 AM AIRCRAFT ENGINE INSTALLER CBC W PLT NO DIFF Early AM 08/10/2024 9:1 1 AM AIRCRAFT ENGINE INSTALLER BASIC METABOLIC PANEL Early AM 08/10/2024 9:11 AM AIRCRAFT ENGINE INSTALLER GLUCOSE METER Timed 08/10/2024 8:00 AM AIRCRAFT ENGINE INSTALLER SCAN-CARDIAC STRIP 08/10/2024 6: 22 AM AIRCRAFT ENGINE INSTALLER MAGNESIUM Timed 08/09/2024 9:44 PM AIRCRAFT ENGINE INSTALLER GLUCOSE METER Timed 08/09/2024 8:58 PM AIRCRAFT ENGINE INSTALLER GLUCOSE METER Timed 08/09/2024 4:50 PM AIRCRAFT ENGINE INSTALLER GLUCOSE METER Timed 08/09/2024 12:03 [address] CT CHEST WO Early AM 08/09/2024 9:05 AM AIRCRAFT ENGINE INSTALLER SCAN-CARDIAC STRIP 08/09/2024 8: 34 AM AIRCRAFT ENGINE INSTALLER GLUCOSE METER Timed 08/09/2024 7:47 AM AIRCRAFT ENGINE INSTALLER MAGNESIUM Early AM 08/09/2024 7:15 AM AIRCRAFT ENGINE INSTALLER CBC W PLT NO DIFF Early AM 08/09/2024 7: 15 AM AIRCRAFT ENGINE INSTALLER BASIC METABOLIC PANEL Early AM 08/09/2024 7:15 AM AIRCRAFT ENGINE INSTALLER GLUCOSE METER Timed 08/08/2024 9:46 PM AIRCRAFT ENGINE INSTALLER GLUCOSE METER Timed 08/08/2024 6:15 PM AIRCRAFT ENGINE INSTALLER XR CHEST 1 VIEW PORTABLE STAT 08/08/2024 12:34 PM AIRCRAFT ENGINE INSTALLER EKG 12 LEAD STAT 08/08/2024 12:23 PM AIRCRAFT ENGINE INSTALLER GLUCOSE METER Timed 08/08/2024 11:58 AM AIRCRAFT ENGINE INSTALLER SCAN-CARDIAC STRIP 08/08/2024 9: 57 AM AIRCRAFT ENGINE INSTALLER GLUCOSE METER Timed 08/08/2024 8:02 AM AIRCRAFT ENGINE INSTALLER CREATININE Add On 08/08/2024 7:31 AM AIRCRAFT ENGINE INSTALLER POTASSIUM Early AM 08/08/2024 7:31 AM AIRCRAFT ENGINE INSTALLER MAGNESIUM Early AM 08/08/2024 7:31 AM AIRCRAFT ENGINE INSTALLER HEMATOCRIT Early AM 08/08/2024 7:31 AM AIRCRAFT ENGINE INSTALLER HEMOGLOBIN Early AM 08/08/2024 7:31 AM AIRCRAFT ENGINE INSTALLER PLATELET COUNT Early AM 08/08/2024 7:31 AM AIRCRAFT ENGINE INSTALLER SCAN-CARDIAC STRIP 08/08/2024 5: 54 AM AIRCRAFT ENGINE INSTALLER WHITE BLOOD COUNT Today 08/08/2024 12: 02 AM AIRCRAFT ENGINE INSTALLER GLUCOSE METER Timed 08/07/2024 9:59 PM AIRCRAFT ENGINE INSTALLER GLUCOSE METER Timed 08/07/2024 5:28 PM AIRCRAFT ENGINE INSTALLER US VENOUS UPPER EXTREMITY RIGHT Routine 08/07/2024 4:16 PM AIRCRAFT ENGINE INSTALLER GLUCOSE METER Timed 08/07/2024 1:17 PM AIRCRAFT ENGINE INSTALLER MR CARDIAC WWO Routine 08/07/2024 1:06 PM AIRCRAFT ENGINE INSTALLER SCAN-CARDIAC STRIP 08/07/2024 8: 44 AM AIRCRAFT ENGINE INSTALLER GLUCOSE METER Timed 08/07/2024 7:53 AM AIRCRAFT ENGINE INSTALLER BASIC METABOLIC PANEL Early AM 08/07/2024 7:45 AM AIRCRAFT ENGINE INSTALLER MAGNESIUM Early AM 08/07/2024 7:45 AM AIRCRAFT ENGINE INSTALLER HEMATOCRIT Early AM 08/07/2024 7:45 AM AIRCRAFT ENGINE INSTALLER HEMOGLOBIN Early AM 08/07/2024 7:45 AM AIRCRAFT ENGINE INSTALLER PLATELET COUNT Early AM 08/07/2024 7:45 AM AIRCRAFT ENGINE INSTALLER GLUCOSE METER Timed 08/07/2024 2:46 AM AIRCRAFT ENGINE INSTALLER GLUCOSE METER Timed 08/06/2024 10:30 PM AIRCRAFT ENGINE INSTALLER GLUCOSE METER Timed 08/06/2024 10:09 PM AIRCRAFT ENGINE INSTALLER SCAN-CARDIAC STRIP 08/06/2024 8: 50 PM AIRCRAFT ENGINE INSTALLER GLUCOSE METER Timed 08/06/2024 5:00 PM AIRCRAFT ENGINE INSTALLER GLUCOSE METER Timed 08/06/2024 11:38 AM AIRCRAFT ENGINE INSTALLER SCAN-CARDIAC STRIP 08/06/2024 10 :30 AM AIRCRAFT ENGINE INSTALLER CVL CORONARY ANGIOGRAM POSS PCI Routine 08/06/2024 9:22 AM AIRCRAFT ENGINE INSTALLER Cardiovascular symptoms GLUCOSE METER Timed 08/06/2024 7:14 AM AIRCRAFT ENGINE INSTALLER CREATININE Early AM 08/06/2024 6:44 AM AIRCRAFT ENGINE INSTALLER SODIUM Early AM 08/06/2024 6:44 AM AIRCRAFT ENGINE INSTALLER POTASSIUM Early AM 08/06/2024 6:44 AM AIRCRAFT ENGINE INSTALLER MAGNESIUM Early AM 08/06/2024 6:44 AM AIRCRAFT ENGINE INSTALLER HEMATOCRIT Early AM 08/06/2024 6:44 AM AIRCRAFT ENGINE INSTALLER HEMOGLOBIN Early AM 08/06/2024 6:44 AM AIRCRAFT ENGINE INSTALLER PLATELET COUNT Early AM 08/06/2024 6:44 AM AIRCRAFT ENGINE INSTALLER SCAN-CARDIAC STRIP 08/06/2024 3: 05 AM AIRCRAFT ENGINE INSTALLER TROPONIN T (HS) ONE TIME Timed 08/05/2024 11:32 PM AIRCRAFT ENGINE INSTALLER TROPONIN T (HS) ACUTE W/2HR REFLEX STAT 08/05/2024 9:33 PM AIRCRAFT ENGINE INSTALLER GLUCOSE METER Timed 08/05/2024 9:29 PM AIRCRAFT ENGINE INSTALLER EKG 12 LEAD STAT 08/05/2024 9:00 PM AIRCRAFT ENGINE INSTALLER GLUCOSE METER Timed 08/05/2024 6:38 PM AIRCRAFT ENGINE INSTALLER TROPONIN T (HS) ONE TIME Timed 08/05/2024 5:48 PM AIRCRAFT ENGINE INSTALLER TROPONIN T (HS) ACUTE W/2HR REFLEX STAT 08/05/2024 1:39 PM AIRCRAFT ENGINE INSTALLER GLUCOSE METER Timed 08/05/2024 11:56 AM AIRCRAFT ENGINE INSTALLER XR CHEST 2 VIEWS PA AND LATERAL Routine 08/05/2024 10:42 AM AIRCRAFT ENGINE INSTALLER SCAN-CARDIAC STRIP 08/05/2024 8: 11 AM AIRCRAFT ENGINE INSTALLER SCAN-CARDIAC STRIP 08/05/2024 8: 11 AM AIRCRAFT ENGINE INSTALLER SCAN-CARDIAC STRIP 08/05/2024 8: 11 AM AIRCRAFT ENGINE INSTALLER GLUCOSE METER Timed 08/05/2024 7:10 AM AIRCRAFT ENGINE INSTALLER PRO-BNP Add On 08/05/2024 6:09 AM AIRCRAFT ENGINE INSTALLER ANTI HIV 1/2 FREDI 08/05/2024 6:09 AM AIRCRAFT ENGINE INSTALLER TSH FREDI 08/05/2024 6:09 AM AIRCRAFT ENGINE INSTALLER IRON PLUS IRON BINDING CAP FREDI 08/05/2024 6:09 AM AIRCRAFT ENGINE INSTALLER FERRITIN FREDI 08/05/2024 6:09 AM AIRCRAFT ENGINE INSTALLER BASIC METABOLIC PANEL Early AM 08/05/2024 6:09 AM AIRCRAFT ENGINE INSTALLER MAGNESIUM Early AM 08/05/2024 6:09 AM AIRCRAFT ENGINE INSTALLER HEMATOCRIT Early AM 08/05/2024 6:09 AM AIRCRAFT ENGINE INSTALLER HEMOGLOBIN Early AM 08/05/2024 6:09 AM AIRCRAFT ENGINE INSTALLER PLATELET COUNT Early AM 08/05/2024 6:09 AM AIRCRAFT ENGINE INSTALLER SCAN-CARDIAC STRIP 08/05/2024 2: 22 AM AIRCRAFT ENGINE INSTALLER GLUCOSE METER Timed 08/04/2024 9:17 PM AIRCRAFT ENGINE INSTALLER GLUCOSE METER Timed 08/04/2024 5:38 PM AIRCRAFT ENGINE INSTALLER LACTATE VENOUS Today 08/04/2024 1:42 PM AIRCRAFT ENGINE INSTALLER GLUCOSE METER Timed 08/04/2024 1:30 PM AIRCRAFT ENGINE INSTALLER EKG 12 LEAD STAT 08/04/2024 12:35 PM AIRCRAFT ENGINE INSTALLER GLUCOSE METER Timed 08/04/2024 11:53 AM AIRCRAFT ENGINE INSTALLER SCAN CORRESP-EKG RESULTS 08/04/2024 10:27 AM AIRCRAFT ENGINE INSTALLER SCAN CORRESP-IMAGING 08/04/2024 10:27 AM AIRCRAFT ENGINE INSTALLER SCAN-CARDIAC STRIP 08/04/2024 10 :15 AM AIRCRAFT ENGINE INSTALLER EKG 12 LEAD STAT 08/04/2024 9:21 AM AIRCRAFT ENGINE INSTALLER ECHO TTE LIMITED W CONTRAST W COLOR W DOPPLER Routine 08/04/2024 8:55 AM AIRCRAFT ENGINE INSTALLER GLUCOSE METER Timed 08/04/2024 8:13 AM AIRCRAFT ENGINE INSTALLER HEPATIC FUNCTION PANEL FREDI 08/04/2024 6:13 AM AIRCRAFT ENGINE INSTALLER SODIUM Early AM 08/04/2024 6:13 AM AIRCRAFT ENGINE INSTALLER MAGNESIUM Early AM 08/04/2024 6:13 AM AIRCRAFT ENGINE INSTALLER POTASSIUM Early AM 08/04/2024 6:13 AM AIRCRAFT ENGINE INSTALLER CREATININE Early AM 08/04/2024 6:13 AM AIRCRAFT ENGINE INSTALLER HEMATOCRIT Early AM 08/04/2024 6:13 AM AIRCRAFT ENGINE INSTALLER HEMOGLOBIN Early AM 08/04/2024 6:13 AM AIRCRAFT ENGINE INSTALLER PLATELET COUNT Early AM 08/04/2024 6:13 AM AIRCRAFT ENGINE INSTALLER EKG 12 LEAD STAT 08/04/2024 4:23 AM AIRCRAFT ENGINE INSTALLER GLUCOSE METER Timed 08/03/2024 9:54 PM AIRCRAFT ENGINE INSTALLER XR CHEST 2 VIEWS PA AND LATERAL Routine 08/03/2024 7:28 PM AIRCRAFT ENGINE INSTALLER GLUCOSE METER Timed 08/03/2024 6:07 PM AIRCRAFT ENGINE INSTALLER SCAN-CARDIAC STRIP 08/03/2024 4: 20 PM AIRCRAFT ENGINE INSTALLER MAGNESIUM FREDI 08/03/2024 4:17 PM AIRCRAFT ENGINE INSTALLER POTASSIUM FREDI 08/03/2024 4:17 PM AIRCRAFT ENGINE INSTALLER PRO-BNP Today 08/03/2024 4:17 PM AIRCRAFT ENGINE INSTALLER EKG 12 LEAD FREDI 08/03/2024 3:01 PM AIRCRAFT ENGINE INSTALLER HCHG ACTIVATED CLOTTING TM CV Timed 08/03/2024 2:50 PM AIRCRAFT ENGINE INSTALLER GLUCOSE METER Timed 08/03/2024 2:42 PM AIRCRAFT ENGINE INSTALLER HCHG ACTIVATED CLOTTING TM CV Timed 08/03/2024 2:21 PM AIRCRAFT ENGINE INSTALLER COVID/FLU/RSV PANEL Today 08/03/2024 1 :30 PM AIRCRAFT ENGINE INSTALLER HCHG ACTIVATED CLOTTING TM CV Timed 08/03/2024 1:10 PM AIRCRAFT ENGINE INSTALLER HCHG ACTIVATED CLOTTING TM CV Timed 08/03/2024 12:30 PM AIRCRAFT ENGINE INSTALLER HCHG ACTIVATED CLOTTING TM CV Timed 08/03/2024 12:14 PM AIRCRAFT ENGINE INSTALLER COMPREHENSIVE BLOOD GAS MIXED VENOUS Timed 08/03/2024 11:51 AM AIRCRAFT ENGINE INSTALLER CVL CORONARY ANGIOGRAM POSS PCI Routine 08/03/2024 11:23 AM AIRCRAFT ENGINE INSTALLER Cardiovascular symptoms GLUCOSE METER Timed 08/03/2024 8:47 AM AIRCRAFT ENGINE INSTALLER APTT Timed 08/03/2024 7:42 AM AIRCRAFT ENGINE INSTALLER HEMATOCRIT Early AM 08/03/2024 6:42 AM AIRCRAFT ENGINE INSTALLER HEMOGLOBIN Early AM 08/03/2024 6:42 AM AIRCRAFT ENGINE INSTALLER PLATELET COUNT Early AM 08/03/2024 6:42 AM AIRCRAFT ENGINE INSTALLER EKG 12 LEAD STAT 08/03/2024 2:14 AM AIRCRAFT ENGINE INSTALLER APTT Timed 08/03/2024 1:22 AM AIRCRAFT ENGINE INSTALLER EKG 12 LEAD STAT 08/02/2024 9:14 PM AIRCRAFT ENGINE INSTALLER GLUCOSE METER Timed 08/02/2024 9:02 PM AIRCRAFT ENGINE INSTALLER LIPID PANEL FREDI 08/02/2024 8:07 PM AIRCRAFT ENGINE INSTALLER TROPONIN T (HS) ACUTE W/2HR REFLEX STAT 08/02/2024 8:07 PM AIRCRAFT ENGINE INSTALLER EKG 12 LEAD STAT 08/02/2024 8:00 PM AIRCRAFT ENGINE INSTALLER GLUCOSE METER Timed 08/02/2024 6:16 PM AIRCRAFT ENGINE INSTALLER SCAN-CARDIAC STRIP 08/02/2024 5: 35 PM AIRCRAFT ENGINE INSTALLER EKG 12 LEAD STAT 08/02/2024 5:00 PM AIRCRAFT ENGINE INSTALLER GLUCOSE METER Timed 08/02/2024 4:56 PM AIRCRAFT ENGINE INSTALLER TROPONIN T (HS) ONE TIME Today 08/02/2024 3:47 PM AIRCRAFT ENGINE INSTALLER BASIC METABOLIC PANEL FREDI 08/02/2024 2:27 PM AIRCRAFT ENGINE INSTALLER CREATININE FREDI 08/02/2024 2:27 PM AIRCRAFT ENGINE INSTALLER BUN FREDI 08/02/2024 2:27 PM AIRCRAFT ENGINE INSTALLER HEMATOCRIT FREDI 08/02/2024 2:27 PM AIRCRAFT ENGINE INSTALLER HEMOGLOBIN FREDI 08/02/2024 2:27 PM AIRCRAFT ENGINE INSTALLER PLATELET COUNT FREDI 08/02/2024 2:27 PM AIRCRAFT ENGINE INSTALLER APTT FREDI 08/02/2024 2:27 PM AIRCRAFT ENGINE INSTALLER PROTIME-INR FREDI 08/02/2024 2:27 PM AIRCRAFT ENGINE INSTALLER ANTI HCV Routine 04/16/2017 9:14 AM CDT Encounter for hepatitis C screening test for low risk patient from Last 3 Months or Most Recently Relevant to Health Maintenance Results * ECHO TTE LIMITED W CONTRAST (10/16/2024 9:02 AM AIRCRAFT ENGINE INSTALLER) Only the most recent of2 resultswithin the time period is included. AORTIC VALVE MEAN PG 4 mmHg EJECTION FRACTION 22 % LVEDD 5.9 cm Anatomical Region Laterality Modality Ultrasound, Comp uted Tomography 10/16/2024 8:24 AM AIRCRAFT ENGINE INSTALLER Narrative 10/16/2024 9:45 AM AIRCRAFT ENGINE INSTALLER ECHOCARDIOGRAM HARRY ULNA : 1955 68 years Study Date: 10/16/2024 8:24:57 AM Gender: M BP: 110/71 mmHg Height: 188.00 cm BSA: 2.34 m Weight: 108.00 kg Tech: JEMAL Referring MD: RAMONA GONZALEZ Site: [facility] Reading Location: [facility] Patient Location: Outpatient. Procedure: 2D w/ Contrast, Color Doppler and Spectral Doppler. Indication for study: ICM Cardiac Rhythm: Regular.Study quality: Fair. Final Impressions: Limited Echocardiogram performed 1. Mild to moderately increased left ventricular size, normal wall thickness, severely reduced global systolic function, calculated EF of 22 %. 2. There is severe global left ventricular hypokinesis with regional variations (the inferior wall is akinetic) 3. Right ventricular cavity size is normal, global systolic RV function is normal. 4. The aortic valve is sclerotic, no stenosis and no regurgitation. 5. The mitral valve is sclerotic, moderate mitral regurgitation. 6. No pericardial effusion. 7. Echo contrast was administered to enhance visualization of all left ventricular segments. Comparison Compared to prior exam of 08/04/24: LV function appears slightly improved (the motion of the anterior/anterospetal hannon is better). Chamber Sizes and Function Mild to moderately increased left ventricular size, normal wall thickness, severely reduced global systolic function, calculated EF of 22 %. There is severe global left ventricular hypokinesis. Left atrial size is mildly enlarged. Right ventricular cavity size is normal, global systolic RV function is normal. Valves, RV Pressures and Diastolic Function The aortic valve is sclerotic, no stenosis and no regurgitation. The mitral valve is sclerotic, moderate mitral regurgitation. Mild mitral annular calcification is present. The tricuspid valve is normal in structure and not evident tricuspid regurgitation. The pulmonic valve is normal. No pulmonic regurgitation is present on color flow. Masses, Effusion, Shunts There is no pericardial effusion. The inferior vena cava is not well visualized, respiratory size variation not well visualized. MEASUREMENTS AND CALCULATIONS 2-D Measurements and LV Function: LVID (d) 5.9 cm Planimetered EF 22 % LVID (s) 4.7 cm LV FS% (2D) 20 % IVS (d) 1.0 cm HR 94 bpm LVPW (d) 1.0 cm Ao Sinus 3.7 cm LA 4.6 cm Aortic Valve: Vmax 1.3 m/s Max PG 7 mmHg VTI 0.24 m Mean PG 4 mmHg LVOT V max 0.9 m/s Dim Index 0.59 LVOT VTI 0.14 m Tricuspid Valve and estimated PA pressures: Pulmonic Valve: PV Vmax 0.8 m/s Contrast documentation: 5.0 ml diluted Definity, lot #[id number] was administered peripherally to enhance visualization of all left ventricular segments. . This study was interpreted by an [facility] accredited facility. Final Procedure Note Laura Rosario MD - 10/16/2024 ECHOCARDIOGRAM HARRY LUNA : 1955 68 years Study Date: 10/16/2024 8:24:57 AM Gender: M BP: 110/71 mmHg Height: 188.00 cm BSA: 2.34 m Weight: 108.00 kg Tech: JEMAL Referring MD: RAMONA GONZALEZ Site: [facility] Reading Location: [facility] Patient Location: Outpatient. Procedure: 2D w/ Contrast, Color Doppler and Spectral Doppler. Indication for study: ICM Cardiac Rhythm: Regular.Study quality: Fair. Final Impressions: Limited Echocardiogram performed 1. Mild to moderately increased left ventricular size, normal wallthickness, severely reduced global systolic function, calculated EF of 22%. 2. There is severe global left ventricular hypokinesis with regionalvariations (the inferior wall is akinetic) 3. Right ventricular cavity size is normal, global systolic RV functionis normal. 4. The aortic valve is sclerotic, no stenosis and no regurgitation. 5. The mitral valve is sclerotic, moderate mitral regurgitation. 6. No pericardial effusion. 7. Echo contrast was administered to enhance visualization of all leftventricular segments. Comparison Compared to prior exam of 08/04/24: LV function appears slightly improved (the motion of theanterior/anterospetal hannon is better). Chamber Sizes and Function Mild to moderately increased left ventricular size, normal wall thickness,severely reduced global systolic function, calculated EF of 22 %. There issevere global left ventricular hypokinesis. Left atrial size is mildlyenlarged. Right ventricular cavity size is normal, global systolic RVfunction is normal. Valves, RV Pressures and Diastolic Function The aortic valve is sclerotic, no stenosis and no regurgitation. Themitral valve is sclerotic, moderate mitral regurgitation. Mild mitralannular calcification is present. The tricuspid valve is normal instructure and not evident tricuspid regurgitation. The pulmonic valve isnormal. No pulmonic regurgitation is present on color flow. Masses, Effusion, Shunts There is no pericardial effusion. The inferior vena cava is not wellvisualized, respiratory size variation not well visualized. MEASUREMENTS AND CALCULATIONS 2-D Measurements and LV Function: LVID (d) 5.9 cm Planimetered EF 22 % LVID (s) 4.7 cm LV FS% (2D) 20 % IVS (d) 1.0 cm HR 94 bpm LVPW (d) 1.0 cm Ao Sinus 3.7 cm LA 4.6 cm Aortic Valve: Vmax 1.3 m/s Max PG 7 mmHg VTI 0.24 m Mean PG 4 mmHg LVOT V max 0.9 m/s Dim Index 0.59 LVOT VTI 0.14 m Tricuspid Valve and estimated PA pressures: Pulmonic Valve: PV Vmax 0.8 m/s Contrast documentation: 5.0 ml diluted Definity, lot #[id number] wasadministered peripherally to enhance visualization of all left ventricularsegments. . This study was interpreted by an [facility] accredited facility. Final Ramona Gonzalez SCENIC DESIGNER ECHO ORD Final Resu lt * IRON (10/16/2024 8:23 AM AIRCRAFT ENGINE INSTALLER) Pathologist [facility] IRON 65 61 - 157 ug/dL 10/16/2024 1:16 PM AIRCRAFT ENGINE INSTALLER [facility] Blood BLOOD SPECIMEN / Unknown Venipuncture / Unknown 10/16/2024 8:23 AM AIRCRAFT ENGINE INSTALLER 10/16/2024 8:23 AM AIRCRAFT ENGINE INSTALLER us Ramona Gonzalez [facility] CHEMISTRY Final Resu lt [facility] [address] [place] [id number], * (ABNORMAL) PRO-BNP (10/16/2024 8:23 AM AIRCRAFT ENGINE INSTALLER) Only the most recent of6 resultswithin the time period is included. [facility] PRO-BNP 1,563(H) <125 pg/mL 10/16/2024 10:12 AM AIRCRAFT ENGINE INSTALLER [facility] Blood BLOOD SPECIMEN / Unknown Venipuncture / Unknown 10/16/2024 8:23 AM AIRCRAFT ENGINE INSTALLER 10/16/2024 8:23 AM AIRCRAFT ENGINE INSTALLER Narrative [facility] - 10/16/2024 10:12 AM AIRCRAFT ENGINE INSTALLER The following cut-points have been suggested for the use of proBNP for the diagnostic evaluation of heart failure (HF) in patient with acute dyspnea. Patients with eGFR >= 60 Diagnosis (rule in CHF) <50 Years Old 450 pg/mL 50 - 75 Years Old 900 pg/mL >75 Years Old 1800 pg/mL Exclusion (rule out CHF) Age Independent 300 pg/mL A cutoff of 1200 pg/mL for patients with an eGFR <60 yields a diagnostic sensitivity of 89% and specificity of 72% for acute congestive heart failure. Ramona Gonzalez [facility] SEND OUTS Final Resu Performing Organization Address [facility] Co de Phone Number [facility] [address] [place] [address] * FERRITIN (10/16/2024 8:23 AM AIRCRAFT ENGINE INSTALLER) Only the most recent of2 resultswithin the time period is included. Pathologist [facility] FERRITIN 37.1 30.0 - 400.0 ng/mL 10/16/2024 1:16 PM AIRCRAFT ENGINE INSTALLER [facility] Blood BLOOD SPECIMEN / Unknown Venipuncture / Unknown 10/16/2024 8:23 AM AIRCRAFT ENGINE INSTALLER 10/16/2024 8:23 AM AIRCRAFT ENGINE INSTALLER Ramona Gonzalez [facility] CHEMISTRY Final Resu Performing Organization Address [facility] de Phone Number [facility] [address] [place] [address] * (ABNORMAL) BASIC METABOLIC PANEL (10/16/2024 8:23 AM [employer]CRA[employer] INSTALL[employer]) Only the most recent of13 resultswithin the time period is included. SODIUM 140 136 - 145 mmol/L 10/16/2024 8:49 AM [facility] POTASSIUM 4.2 3.5 - 5.1 mmol/L 10/16/2024 8:49 AM [facility] CHLORIDE 104 98 - 107 mmol/L 10/16/2024 8:49 AM [facility] CO2,TOTAL 25 22 - 29 mmol/L 10/16/2024 8:49 AM [facility] ANION GAP 11 5 - 18 10/16/2024 8:49 AM [facility] GLUCOSE 181(H) 70 - 99 mg/dL 10/16/2024 8:49 AM [facility] CALCIUM 8.9 8.8 - 10.4 mg/dL 10/16/2024 8:49 AM [facility] Comment: Reference ranges for this test were updated on 06/16/2024 to reflect our healthy population more accurately. Reference range changes are not retroactively applied to results, but previous results using the same methodology can be interpreted in the context of the new reference range. BUN 26(H) 8 - 23 mg/dL 10/16/2024 8:49 AM [facility] CREATININE 1.26(H) 0.70 - 1.20 mg/dL 10/16/2024 8:49 AM [facility] BUN/CREAT RATIO 21(H) 10 - 20 8:49 AM [facility] eGFR 63(L) >90 mL/min/1. 73m2 10/16/2024 8:49 AM [facility] Comment:As of 2021, eG FR is calculated by the CKD-EPI creatinine equation without race adjustment. eGFR can be influenced by muscle mass, exercise, and diet. The reported eGFR is an estimation only and is only applicable if the renal function is stable. Blood BLOOD SPECIMEN / Unknown Venipuncture / Unknown 10/16/2024 8:23 AM [employer]CRA[employer]INE INSTALLER 10/16/2024 8:23 AM AIRCRAFT ENGINE INSTALLER us Ramona Gonzalez [facility] CHEMISTRY Final Resu lt [facility] [address] [place] [address] * XR RIBS RIGHT AND PA CHEST MINIMUM 3 VIEWS (09/21/2024 2:40 PM AIRCRAFT ENGINE INSTALLER) Anatomical Region Laterality Modality RIBS, RIBS R, CHEST Computed Rad iography 09/21/2024 2:49 PM AIRCRAFT ENGINE INSTALLER Impressions 09/21/2024 2:49 PM AIRCRAFT ENGINE INSTALLER Healing scapular fracture. Dictated by Luis Manuel Figueroa MD @ 09/21/2024 2:49:45 PM (Electronically Signed) Narrative 09/21/2024 2:49 PM AIRCRAFT ENGINE INSTALLER For Patients: As a result of the Cures Act, medical imaging exams and procedure reports are released immediately into your electronic medical record. You may view this report before your referring provider. If you have questions, please contact your health care provider. INDICATION: Closed nondisplaced fracture of body of right scapula with routine healing, subsequent encounter COMPARISON: CT scapula 09/09/2024 TECHNIQUE: PA chest and right ribs. FINDINGS: Healing nondisplaced scapular fracture with stable alignment. Degenerative changes. Intact mediastinal contours. Postop changes to the lower cervical spine. Similar appearance of the ribcage. Chronic deformity of the distal clavicle. Procedure Note Luis Manuel Figueroa MD - 09/21/2024 For Patients: As a result of the Cures Act, medical imagingexams and procedure reports are released immediately into your electronicmedical record. You may view this report before your referring provider.If you have questions, please contact your health care provider. INDICATION: Closed nondisplaced fracture of body of right scapula with routinehealing, subsequent encounter COMPARISON: CT scapula 09/09/2024 TECHNIQUE: PA chest and right ribs. FINDINGS: Healing nondisplaced scapular fracture with stable alignment. Degenerativechanges. Intact mediastinal contours. Postop changes to the lower cervicalspine. Similar appearance of the ribcage. Chronic deformity of the distalclavicle. IMPRESSION: Healing scapular fracture. Dictated by Luis Manuel Figueroa MD @ 09/21/2024 2:49:45 PM (Electronically Signed) us Sancho Madrid MD GENERAL IMAGING Final Resu lt * CT SCAPULA RIGHT WO (09/09/2024 12:04 PM AIRCRAFT ENGINE INSTALLER) Anatomical Region Laterality Modality SCAPULA Computed Tomogra phy 09/09/2024 12:5 8 PM AIRCRAFT ENGINE INSTALLER Addenda Addendum by Sancho Sneed MD on 09/09/2024 2:37 PM AIRCRAFT ENGINE INSTALLER INDICATION: Acute pain. Assess for fracture. COMPARISON: None. TECHNIQUE: Multidetector noncontrast imaging centered on the right scapula. Axial, coronal and sagittal bone and soft tissue window reformats. FINDINGS: Mildly widened AC joint, likely chronic. No definitive elevation. Query slight lateral downsloping of the acromion. Anatomic glenohumeral alignment. Intact scapula with no bone lesion or fracture. Neutral glenoid version with normal morphology and normal bone gap. No rib fracture in the field of view. Lung parenchyma is unremarkable removed was. IMPRESSION: 1. No scapular fracture or bone lesion. 2. Widened AC joint likely chronic with no definitive acute edema. Please note that all CT scans at this facility use dose modulation, iterative reconstruction, and/or weight-based dosing when appropriate to reduce radiation dose to as low as reasonably achievable. Dictated by Sancho Sneed MD @ 09/09/2024 12:58:44 PM ----- ADDENDUM ----- Addendum: Prior MR comparison 27 August 2024. At the area of marrow edema seen on MR there is very subtle hairline nondisplaced fracture lucency without displacement in the spine of the scapula from the base of the acromion to the junction with the blade with minimal subtle patchy surrounding sclerosis. This is best seen in the sagittal plane and at its cephalad margin in the axial plane. No underlying bone lesion. Very subtle fracture in this superior blade of the scapula possibly in continuity where the spine fracture meets the body and seen well only in the axial plane such as image 20 series 2. No definite fracture of the inferior scapular blade. There is 1 small area of slightly indistinct cortex and perhaps subtle indistinct periosteal mineralization although it is difficult to discern from a little bit of motion and normal undulation of the thin bone but this could early callus formation (image 52 series 2 and image 78 series 8). Dictated by Sancho Sneed MD @ Sep 09 2024 2:25PM (Electronically Signed) Impressions 09/09/2024 12:58 PM AIRCRAFT ENGINE INSTALLER 1. No scapular fracture or bone lesion. 2. Widened AC joint likely chronic with no definitive acute edema. Please note that all CT scans at this facility use dose modulation, iterative reconstruction, and/or weight-based dosing when appropriate to reduce radiation dose to as low as reasonably achievable. Dictated by Sancho Sneed MD @ 09/09/2024 12:58:44 PM (Electronically Signed) Narrative 09/09/2024 12:58 PM AIRCRAFT ENGINE INSTALLER For Patients: As a result of the Cures Act, medical imaging exams and procedure reports are released immediately into your electronic medical record. You may view this report before your referring provider. If you have questions, please contact your health care provider. INDICATION: Acute pain. Assess for fracture. COMPARISON: None. TECHNIQUE: Multidetector noncontrast imaging centered on the right scapula. Axial, coronal and sagittal bone and soft tissue window reformats. FINDINGS: Mildly widened AC joint, likely chronic. No definitive elevation. Query slight lateral downsloping of the acromion. Anatomic glenohumeral alignment. Intact scapula with no bone lesion or fracture. Neutral glenoid version with normal morphology and normal bone gap. No rib fracture in the field of view. Lung parenchyma is unremarkable removed was. Procedure Note Sancho Sneed MD - 09/09/2024 For Patients: As a result of the Cures Act, medical imagingexams and procedure reports are released immediately into your electronicmedical record. You may view this report before your referring provider.If you have questions, please contact your health care provider. INDICATION: Acute pain. Assess for fracture. COMPARISON: None. TECHNIQUE: Multidetector noncontrast imaging centered on the right scapula. Axial,coronal and sagittal bone and soft tissue window reformats. FINDINGS: Mildly widened AC joint, likely chronic. No definitive elevation. Queryslight lateral downsloping of the acromion. Anatomic glenohumeralalignment. Intact scapula with no bone lesion or fracture. Neutral glenoidversion with normal morphology and normal bone gap. No rib fracture in thefield of view. Lung parenchyma is unremarkable removed was. IMPRESSION: 1. No scapular fracture or bone lesion. 2. Widened AC joint likely chronic with no definitive acute edema. Please note that all CT scans at this facility use dose modulation,iterative reconstruction, and/or weight-based dosing when appropriate toreduce radiation dose to as low as reasonably achievable. Dictated by Sancho Sneed MD @ 09/09/2024 12:58:44 PM (Electronically Signed) us Sancho Madrid MD CT Edited Res ult - Final * MAGNESIUM (09/02/2024 8:10 AM AIRCRAFT ENGINE INSTALLER) Only the most recent of17 resultswithin the time period is included. MAGNESIUM 2.0 1.5 - 2.5 mg/dL [facility] Blood BLOOD SPECIMEN / Unknown 09/02/2024 8:10 AM AIRCRAFT ENGINE INSTALLER 09/02/2024 8:10 AM AIRCRAFT ENGINE INSTALLER us Ramona Gonzalez SCENIC DESIGNER CHEMISTRY Final Resu lt [employer] [facility] [place] [facility] [address] [place] [address], [facility] [address] [place] [address] * MR SHOULDER RIGHT WO (08/27/2024 10:31 AM AIRCRAFT ENGINE INSTALLER) Anatomical Region Laterality Modality SHOULDER R Magnetic Resonan ce 08/27/2024 12:0 9 PM AIRCRAFT ENGINE INSTALLER Impressions 08/27/2024 12:09 PM AIRCRAFT ENGINE INSTALLER 1. Nondisplaced fracture of the scapular spine near the junction with the scapular body. 2. Edema in the distal scapular body consistent with a contusion or nonvisualized fracture out of the field of view. 3. Mild posterior subcutaneous edema. No hematoma. 4. Mild subscapularis tendinopathy. 5. Distal clavicle excision and acromioplasty. Dictated by Sancho Alonzo MD @ 08/27/2024 12:09:11 PM (Electronically Signed) Narrative 08/27/2024 12:09 PM AIRCRAFT ENGINE INSTALLER For Patients: As a result of the Century Cures Act, medical imaging exams and procedure reports are released immediately into your electronic medical record. You may view this report before your referring provider. If you have questions, please contact your health care provider. EXAM: MRI OF THE RIGHT SHOULDER WITHOUT CONTRAST CLINICAL INDICATION: Acute shoulder pain fall. COMPARISON PLAIN FILMS: 08/11/2024. COMPARISON CROSS-SECTIONAL IMAGING STUDIES: None available at time of interpretation. TECHNICAL: Axial, sagittal oblique and coronal oblique T1, PD, PD FS and T2-weighted images. Shoulder surface coil. FINDINGS: ROTATOR CUFF TENDONS AND MUSCLES AND DELTOID: Supraspinatus: No tendinosis, tendon tearing, muscle atrophy or muscle edema. Infraspinatus: No tendinosis, tendon tearing, muscle atrophy or muscle edema. Subscapularis: Mild tendinopathy. No tendon tear. No muscle atrophy or edema. Teres Minor: No tendinosis, tendon tearing, muscle atrophy or muscle edema. Deltoid: No muscle atrophy or edema. BURSA: Subacromial-subdeltoid: No abnormal bursal edema, thickening or bursal fluid. BICEPS TENDON, LONG HEAD: The long head of the biceps tendon is appropriately positioned within the bicipital groove without tendon subluxation or dislocation. The biceps ruben mechanism is intact. The biceps anchor appears grossly intact. There is no significant tendinosis or tendon tearing. CORACOACROMIAL ARCH: Acromial Morphology: Type 1 acromial morphology. Acromioplasty. No significant subacromial spur. No os acromiale. Acromiohumeral Interval: Normal. Coracohumeral Interval: Normal. ACROMIOCLAVICULAR JOINT REGION: AC Joint: Distal clavicle excision. No inferior marginal osteophytes. Ligaments: The coracoclavicular ligaments are intact. GLENOHUMERAL JOINT: Joint space: No effusion or synovitis. Humeral Head Articular Cartilage: No focal cartilage defect or underlying subchondral marrow changes. Glenoid Articular Cartilage: No focal cartilage defect or underlying subchondral marrow changes. Labrum: No labral tear or paralabral cyst. Alignment: Maintained. Capsule: No capsular edema or abnormal capsular thickening. OSSEOUS STRUCTURES: There is a small nondisplaced fracture of the scapular spine near the junction with the scapular body. There is also edema in the inferior scapular body consistent with an additional contusion or nonvisualized fracture out of the field of view. OTHER FINDINGS: Mild subcutaneous edema posterior to the shoulder. No hematoma. No axillary adenopathy or mass. Procedure Note Sancho Alonzo MD - 08/27/2024 For Patients: As a result of the Century Cures Act, medical imagingexams and procedure reports are released immediately into your electronicmedical record. You may view this report before your referring provider.If you have questions, please contact your health care provider. EXAM: MRI OF THE RIGHT SHOULDER WITHOUT CONTRAST CLINICAL INDICATION: Acute shoulder pain fall. COMPARISON PLAIN FILMS: 08/11/2024. COMPARISON CROSS-SECTIONAL IMAGING STUDIES: None available at time of interpretation. TECHNICAL: Axial, sagittal oblique and coronal oblique T1, PD, PD FS and T2-weightedimages. Shoulder surface coil. FINDINGS: ROTATOR CUFF TENDONS AND MUSCLES AND DELTOID: Supraspinatus: No tendinosis, tendon tearing, muscle atrophy or muscleedema. Infraspinatus: No tendinosis, tendon tearing, muscle atrophy or muscleedema. Subscapularis: Mild tendinopathy. No tendon tear. No muscle atrophy oredema. Teres Minor: No tendinosis, tendon tearing, muscle atrophy or muscleedema. Deltoid: No muscle atrophy or edema. BURSA: Subacromial-subdeltoid: No abnormal bursal edema, thickening or bursalfluid. BICEPS TENDON, LONG HEAD: The long head of the biceps tendon is appropriately positioned within thebicipital groove without tendon subluxation or dislocation. The bicepspulley mechanism is intact. The biceps anchor appears grossly intact.There is no significant tendinosis or tendon tearing. CORACOACROMIAL ARCH: Acromial Morphology: Type 1 acromial morphology. Acromioplasty. Nosignificant subacromial spur. No os acromiale. Acromiohumeral Interval: Normal. Coracohumeral Interval: Normal. ACROMIOCLAVICULAR JOINT REGION: AC Joint: Distal clavicle excision. No inferior marginal osteophytes. Ligaments: The coracoclavicular ligaments are intact. GLENOHUMERAL JOINT: Joint space: No effusion or synovitis. Humeral Head Articular Cartilage: No focal cartilage defect or underlyingsubchondral marrow changes. Glenoid Articular Cartilage: No focal cartilage defect or underlyingsubchondral marrow changes. Labrum: No labral tear or paralabral cyst. Alignment: Maintained. Capsule: No capsular edema or abnormal capsular thickening. OSSEOUS STRUCTURES: There is a small nondisplaced fracture of the scapular spine near thejunction with the scapular body. There is also edema in the inferiorscapular body consistent with an additional contusion or nonvisualizedfracture out of the field of view. OTHER FINDINGS: Mild subcutaneous edema posterior to the shoulder. No hematoma. Noaxillary adenopathy or mass. IMPRESSION: 1. Nondisplaced fracture of the scapular spine near the junction with thescapular body. 2. Edema in the distal scapular body consistent with a contusion ornonvisualized fracture out of the field of view. 3. Mild posterior subcutaneous edema. No hematoma. 4. Mild subscapularis tendinopathy. 5. Distal clavicle excision and acromioplasty. Dictated by Sancho Alonzo MD @ 08/27/2024 12:09:11 PM (Electronically Signed) Lakesha Khan MD MR Final Resul t * (ABNORMAL) URINE ALBUMIN TO CREATININE RATIO, RANDOM (08/19/2024 10:28 AM AIRCRAFT ENGINE INSTALLER) ALB RAND URINE 76.9 mg/L 08/19/2024 4:25 PM AIRCRAFT ENGINE INSTALLER [facility] CREATININE,URIN E 0.91 g/L 08/19/2024 4:25 PM AIRCRAFT ENGINE INSTALLER [facility] ALBUMIN TO CREATININE RATIO,RAND UR 84.5(H) <30.0 mg/g creat 08/19/2024 4:25 PM AIRCRAFT ENGINE INSTALLER [facility] Urine URINE SPECIMEN / Unknown Non-Blood / Unknown 08/19/2024 10:28 AM AIRCRAFT ENGINE INSTALLER 08/19/2024 10:28 AM AIRCRAFT ENGINE INSTALLER Narrative [facility] - 08/19/2024 4:25 PM AIRCRAFT ENGINE INSTALLER If Albumin to Creatinine Ratio is elevated, consider the following: Elevations seen with incipient nephropathy associated with diabetes mellitus or hypertension. Stress, exercise,hematuria, and urinary tract infection may also produce elevated results. If clinically indicated, confirm with 24 Hour Albumin to Creatinine Ratio. us Lakesha Khan MD URINE Final Resul t [facility] [address] [place] [address], [place] * (ABNORMAL) HEMOGLOBIN (08/19/2024 10:20 AM AIRCRAFT ENGINE INSTALLER) Only the most recent of12 resultswithin the time period is included. HEMOGLOBIN 12.3(L) 13.2 - 17.1 g/dL [facility] Blood BLOOD SPECIMEN / Unknown 08/19/2024 10:20 AM AIRCRAFT ENGINE INSTALLER 08/19/2024 10:21 AM AIRCRAFT ENGINE INSTALLER Lakesha Khan MD HEMATOLOGY Final Resul t Performing Organization Address City/[facility]/ZIP Co de Phone Number [facility] [address] [place] [address], [facility] [address] [place] [address] * (ABNORMAL) POCT Hemoglobin A1C Monitoring (08/19/2024 10:19 AM AIRCRAFT ENGINE INSTALLER) POC HEMOGLOBIN A1C 7.8(H) <6.0 % OF TOTAL HGB [facility] Comment: Any point of care results exhibiting inconsistency with the patient's clinical status should be repeated using a different testing method. Blood BLOOD SPECIMEN / Unknown 08/19/2024 10:19 AM AIRCRAFT ENGINE INSTALLER 08/19/2024 10:20 AM AIRCRAFT ENGINE INSTALLER Lakesha Khan MD CHEMISTRY Final Resul t Performing Organization Address City/[facility]/ZIP Co de Phone Number [facility] [address] [place] [address], [place] [phone] [facility] [address] [place] [address] * (ABNORMAL) GLUCOSE METER (08/15/2024 11:28 AM AIRCRAFT ENGINE INSTALLER) Only the most recent of60 resultswithin the time period is included. GLUCOSE METER 225(H) 65 - 100 mg/dL 08/15/2024 11:29 AM AIRCRAFT ENGINE INSTALLER [facility] Blood BLOOD SPECIMEN / Unknown 08/15/2024 11:28 AM AIRCRAFT ENGINE INSTALLER 08/15/2024 11:29 AM AIRCRAFT ENGINE INSTALLER Luis Manuel Leary MD CHEMISTRY Final R esult Performing Organization Address [facility] Co de Phone Number [facility] [address] [address], [place] * SCAN-CARDIAC STRIP (08/15/2024 7:30 AM AIRCRAFT ENGINE INSTALLER) us Scanner OTHER Final Result * PLATELET COUNT (08/15/2024 6:30 AM AIRCRAFT ENGINE INSTALLER) Only the most recent of11 resultswithin the time period is included. PLATELET COUNT 158 140 - 440 thou/cu mm 08/15/2024 7:08 AM AIRCRAFT ENGINE INSTALLER [facility] MPV 10.2 6.5 - 11.0 fL 08/15/2024 7:08 AM AIRCRAFT ENGINE INSTALLER [facility] Blood BLOOD SPECIMEN / Unknown Venipuncture / Unknown 08/15/2024 6:30 AM AIRCRAFT ENGINE INSTALLER 08/15/2024 7:02 AM AIRCRAFT ENGINE INSTALLER Narrative [facility] - 08/15/2024 7:08 AM AIRCRAFT ENGINE INSTALLER Every morning while on IV heparin. Every morning while on IV heparin. Necessary every morning while on IV heparin. Luis Manuel Leary MD HEMATOLOGY Final R esult Performing Organization Address [facility] de Phone Number [facility] [address] [address], [place] * HEMATOCRIT (08/15/2024 6:30 AM AIRCRAFT ENGINE INSTALLER) Only the most recent of11 resultswithin the time period is included. HEMATOCRIT 40.2 37.0 - 53.0 % 08/15/2024 7:08 AM AIRCRAFT ENGINE INSTALLER [facility] Blood BLOOD SPECIMEN / Unknown Venipuncture / Unknown 08/15/2024 6:30 AM AIRCRAFT ENGINE INSTALLER 08/15/2024 7:02 AM AIRCRAFT ENGINE INSTALLER Narrative [facility] - 08/15/2024 7:08 AM AIRCRAFT ENGINE INSTALLER Every morning while on IV heparin. Every morning while on IV heparin. Necessary every morning while on IV heparin. Luis Manuel Leary MD HEMATOLOGY Final R esult Performing Organization Address City/[facility]/ZIP Co de Phone Number [facility] [address] [place] [phone], * POTASSIUM (08/15/2024 6:30 AM AIRCRAFT ENGINE INSTALLER) Only the most recent of6 resultswithin the time period is included. Pathologist [facility] POTASSIUM 4.2 3.5 - 5.1 mmol/L 08/15/2024 7:30 AM AIRCRAFT ENGINE INSTALLER [facility] Blood BLOOD SPECIMEN / Unknown Venipuncture / Unknown 08/15/2024 6:30 AM AIRCRAFT ENGINE INSTALLER 08/15/2024 7:02 AM AIRCRAFT ENGINE INSTALLER Luis Manuel Leary MD CHEMISTRY Final [email or web address] Performing Organization Address [facility] Co de Phone Number [facility] [address] [place] [address], [place] * SCAN-CARDIAC STRIP (08/14/2024 11:46 PM AIRCRAFT ENGINE INSTALLER) us Scanner OTHER Final Result * SCAN-CARDIAC STRIP (08/14/2024 10:23 AM AIRCRAFT ENGINE INSTALLER) us Scanner OTHER Final Result * SCAN-CARDIAC STRIP (08/14/2024 9:56 AM AIRCRAFT ENGINE INSTALLER) us Scanner OTHER Final Result * (ABNORMAL) CBC with Platelets no Differential (08/14/2024 8:05 AM AIRCRAFT ENGINE INSTALLER) Only the most recent of3 resultswithin the time period is included. WHITE BLOOD COUNT 6.4 4.5 - 11.0 thou/cu mm 08/14/2024 8:46 AM AIRCRAFT ENGINE INSTALLER [facility] TRAL LABORATORY RED BLOOD COUNT 4.74 4.30 - 5.90 mil/cu mm 08/14/2024 8:46 AM AIRCRAFT ENGINE INSTALLER [facility] HEMOGLOBIN 11.9(L) 13.5 - 17.5 g/dL 08/14/2024 8:46 AM AIRCRAFT ENGINE INSTALLER [facility] LAB[facility] HEMATOCRIT 38.7 37.0 - 53.0 % 08/14/2024 8:46 AM AIRCRAFT ENGINE INSTALLER [facility] LAB[facility] MCV 82 80 - 100 fL 08/14/2024 8:46 AM [facility] LAB[facility] MCH 25.1(L) 26.0 - 34.0 pg 08/14/2024 8:46 AM AIRCRAFT ENGINE INSTALLER [facility] LAB[facility] MCHC 30.7(L) 32.0 - 36.0 g/dL 08/14/2024 8:46 AM [facility] RDW 16.6(H) 11.5 - 15.5 % 08/14/2024 8:46 AM [facility] PLATELET COUNT 163 140 - 440 thou/cu mm 08/14/2024 8:46 AM [facility] MPV 10.1 6.5 - 11.0 fL 08/14/2024 8:46 AM [facility] NRBC 0.0 % 08/14/2024 8:46 AM [facility] ABS NRBC 0.0 thou /cu mm 08/14/2024 8:46 AM [facility] Blood BLOOD SPECIMEN / Unknown Venipuncture / Unknown 08/14/2024 8:05 AM AIRCRAFT ENGINE INSTALLER 08/14/2024 8:36 AM AIRCRAFT ENGINE INSTALLER us Marva Palacios MD HEMATOLOGY Fin al Result [facility] [address] [place] [address], * SCAN-CARDIAC STRIP (08/14/2024 3:11 AM AIRCRAFT ENGINE INSTALLER) us Scanner OTHER Final Result * SCAN-CARDIAC STRIP (08/13/2024 5:18 PM AIRCRAFT ENGINE INSTALLER) us Scanner OTHER Final Result * EKG - On Arrival to Floor (08/13/2024 5:16 PM AIRCRAFT ENGINE INSTALLER) Only the most recent of16 resultswithin the time period is included. Interpretation Sinus rhythm with 1st degree A-V block with occasional Premature ventricular complexes Left axis deviation Right bundle branch block Inferior infarct (cited on or before 08-Aug-2024) Abnormal ECG When compared with ECG of 12-Aug-2024 11:58, (Unconfirmed) Premature ventricular complexes are now Present Premature atrial complexes are no longer Present T wave inversion now evident in Inferior leads T wave inversion no longer evident in Lateral leads BEYOND NOW Ventricular Rate 91 BPM BEYOND NOW Atrial Rate 91 BPM BEYOND NOW P-R Interval 220 ms BEYOND NOW QRS Duration 148 ms BEYOND NOW QT 432 ms BEYOND NOW QTc 531 ms BEYOND NOW P [place] 45 degrees BEYOND NOW R [place] -51 degrees BEYOND NOW T [place] 21 degrees BEYOND NOW 08/13/2024 5:16 PM AIRCRAFT ENGINE INSTALLER 08/15/2024 12:38 AM AIRCRAFT ENGINE INSTALLER Marva Palacios MD EKG ORD Fin al Result Performing Organization Address City/[facility]/ZIP Co de Phone Number BEYOND NOW [place], [place] * (ABNORMAL) ACTIVATED CLOTTING TIME [id number] ACT (08/13/2024 2:03 PM AIRCRAFT ENGINE INSTALLER) Only the most recent of11 resultswithin the time period is included. ACTIVATED CLOTTING TIME, POCT 332(H) 74 - 125 sec 08/14/2024 4:04 PM AIRCRAFT ENGINE INSTALLER [facility] [employer] [facility] Blood BLOOD SPECIMEN / Unknown 08/13/2024 2:03 PM AIRCRAFT ENGINE INSTALLER 08/14/2024 4:04 PM AIRCRAFT ENGINE INSTALLER us Luis Manuel Leary MD HEMATOLOGY Final R esult [facility] [address] [place] [address], * CVL CORONARY ANGIOGRAM POSS PCI (08/13/2024 11:14 AM AIRCRAFT ENGINE INSTALLER) Anatomical Region Laterality Modality Other 08/13/2024 11:1 4 AM AIRCRAFT ENGINE INSTALLER Narrative Transcriptions Orville Mcmillan MD - 08/13/2024 3:38 PM CST [facility] Cardiac Catheterization Report Name: HARRY LUNA Event Date: 08/13/2024 11:14 Emmanuelian ID #: [id number] [facility] #: [id number] Patient Class: Inpatient Diagnostic Physician: ORVILLE MCMILLAN [facility] Interventional Physician: ORVILLE MCMILLAN [facility] Referring Physician: Date: 1955 Gender: Male Age: 68 Summary/Conclusions PRESENTATION / INDICATIONS * Surgical turndown VASCULAR ACCESS * Using ultrasound guidance and a percutaneous technique, the right commonfemoral artery was accessed. Ultrasound was used to confirm vesselpatency, localizing needle into the lumen of the vessel. An image wassaved for the medical record. DIAGNOSTIC - CORONARY * Multivessel coronary disease INTERVENTION * Successful mini-crush OCT-guided stenting (drug eluting) of the LAD and1st diagonal * Pressure gradient measurements were measured across the lesion * Intracoronary ultrasound was used for lesion assessment DIAGNOSTIC SUMMARY ? The LMCA is free of significant disease. ? 80% stenosis in the Proximal LAD ? 80% stenosis in the Mid LAD ? 80% Diffusely diseased stenosis in the 1st Diagonal ? 50% stenosis in the Mid RCA LEFT VENTRICULAR FUNCTION ? LV Pressure = 103/10. INTERVENTION ? Successful Pressure Wire, Other Device, 3mm x 12mm Balloon, 3mm x 27mmBalloon, 3mm x 34mm Drug Eluting Stent, 3.5mm x 15mm Balloon, and 3mm x15mm Balloon to Proximal LAD, post stenosis 0% ? Successful 2.5mm x 20mm Balloon, 3mm x 30mm Drug Eluting Stent, 3mm x30mm Balloon, and 3mm x 15mm Balloon to Mid LAD, post stenosis 0% ? Successful Pressure Wire, 2.5mm x 20mm Balloon, 2.75mm x 22mm Balloon,2mm x 15mm Balloon, 2.75mm x 15mm Balloon, and 2.75mm x 22mm DrugEluting Stent to 1st Diagonal, post stenosis 0% ? Pressure Wire to Mid RCA RECOMMENDATIONS & PLAN * DAPT for a minimum of 12 months following complex PCI. Consent & [place] Protocol The risks, benefits, and alternatives of the procedure were discussed withthe patient and written informed consent was obtained. [place] protocol was followed. TIME OUT conducted just prior tostarting procedure confirmed patient identity, site/side, procedure,patient position, and availability of correct equipment and implants (ifapplicable). Staff Name Title Orville Mcmillan Executive Director Melly Reed RN Nurse Padmini Alva CVT Scrub Lisandra Guerrero RT(R) Monitor Kayce Palma CVT Monitor Marva Palacios Fellow Procedures ? Ultrasound Guided Vascular Access ? Femoral Angio for Possible Closure Device ? Left Heart Cath No Ventriculogram ? Coronary Angiogram ? Coronary Fractional Flow Measurement ? Coronary Fractional Flow Measurement, Addl ? Coronary Fractional Flow Measurement, Addl ? Optical Coherence Tomography ? CathWorks Coronary FFR ? Stent Placement, Drug Eluting [PCI] ? Stent Placement, Drug Eluting Add'l Vessel [PCI] ? Heart Assist Device Impella ? Femoral Closure Device Procedure Comments Physiologic assessments: * Pre-PCI: - LAD RFR 075, Pd/Pa 0.75, FFR 0.67, FFRangio 0.81, distal FFRangio 0.57 - Diagonal RFR 0.81, Pd/Pa 0.85, FFR 0.74, FFRangio 072 - RCA RFR 0.98, Pd/Pa 1.0, FFR 0.94 (adenosine), FFR Papaverine 0.95 * Post PCI - LAD 0.96 - Diagonal 0.87 Diagnostic Findings * Left Main Coronary Artery ? The LMCA is free of significant disease. * Left Anterior Descending ? 80% stenosis in the Proximal LAD. The lesion has a MATIAS flow of 2 andis a bifurcation lesion. ? 80% stenosis in the Mid LAD. The lesion has a MATIAS flow of 2. ? 80% diffusely diseased stenosis in the 1st Diagonal. The lesion has aTIMI flow of 2 and is a bifurcation lesion. * Right Coronary Artery ? 50% stenosis in the Mid RCA. Lesion Information Lesion # Vessel Segment Lesion Length Lesion Details 1 Mid RCA 3 1st Diagonal 2 Proximal LAD 4 Mid LAD Hemodynamics State: Baseline Pressures (mmHg) Site Systolic Diastolic End Diastolic A Wave V Wave Mean LV 103 4 10 AO 114 63 77 Interventional Results * Left Anterior Descending ? Successful intervention to the Proximal LAD 80% lesion with a finalstenosis of 0% using a Pressure Wire, Other Device, 3mm x 12mm Balloon,3mm x 27mm Balloon, 3mm x 34mm Drug Eluting Stent, 3.5mm x 15mmBalloon, and a 3mm x 15mm Balloon. The final MATIAS flow was 3. ? Successful intervention to the Mid LAD 80% lesion with a finalstenosis of 0% using a 2.5mm x 20mm Balloon, 3mm x 30mm Drug ElutingStent, 3mm x 30mm Balloon, and a 3mm x 15mm Balloon. The final TIMIflow was 3. ? Successful intervention to the 1st Diagonal 80% lesion with a finalstenosis of 0% using a Pressure Wire, 2.5mm x 20mm Balloon, 2.75mm x22mm Balloon, 2mm x 15mm Balloon, 2.75mm x 15mm Balloon, and a 2.75mm x22mm Drug Eluting Stent. The final MATIAS flow was 3. * Right Coronary Artery ? Intervention to the Mid RCA 50% lesion using a Pressure Wire. Interventional Devices Lesion # Vessel Segment Type Name Max Pressure 1 Mid RCA Pressure Wire Wire Pressure Gen X 175cm 3 1st Diagonal Balloon BLLN EUPHORA NC RX 2.5MM X 20MM 3 1st Diagonal Balloon JUDY IDALIA Mckenzie RX [id number] 3 1st Diagonal Balloon BLLN Takeru RX 2.0 x15mm 3 1st Diagonal Balloon BLLN EUPHORA NC RX 2.75MM X 15MM 3 1st Diagonal Drug Eluting Stent JUDY IDALIA Mckenzie RX [id number] 3 1st Diagonal Pressure Wire Wire Pressure Gen X 175cm 2 Proximal LAD Balloon BLLN SHOCKWAVE [id number] 2 Proximal LAD Balloon BLLN EUPHORA NC RX 3.5MM X 15MM 2 Proximal LAD Balloon BLLN 3X15MM NC EMERGE RX 2 Proximal LAD Drug Eluting Stent JUDY IDALIA Mckenzie RX [id number] 2 Proximal LAD Balloon BLLN EUPHORA NC RX 3MM X 27MM 2 Proximal LAD Pressure Wire Wire Pressure Gen X 175cm 2 Proximal LAD Other Device CATH OCT Dragonfly OpStar 4 Mid LAD Drug Eluting Stent JUDY IDALIA Mckenzie RX [id number] 4 Mid LAD Balloon JUDY IDALIA Mckenzie RX [id number] 4 Mid LAD Balloon BLLN 3X15MM NC EMERGE RX 4 Mid LAD Balloon BLLN EUPHORA NC RX 2.5MM X 20MM Procedure Details Estimated Blood Loss: < 30 ml Specimen Collected: None Level of Sedation Achieved: Mild Procedure Start: 11:14 Procedure End: 14:01 Procedure Time: 167 min Fluoroscopy Time: 37.6 min Cumulative Air Kerma: 2908 mGy DAP: 71045 uGy/M2 Contrast: Omnipaque (low-osmolar), 180 ml Physiologic Data Weight: 106.2 kg BSA: 2.32 m2 Vascular Access Time Access Sheath Size 11:21 Right Femoral Artery, sheath inserted Complications ? No Complications Medications Ordered and Administered Start Time Stop Time Medication Dose Units Route Ordered By Given By 11:03 Fentanyl 50 mcg IV Orville Mcmillan Anne RN 11:03 Versed 1 mg IV Orville Mcmillan Anne RN 11:13 Fentanyl 25 mcg IV Orville Mcmillan Anne RN 11:13 Versed 0.5 mg IV Orville Mcmillan Anne RN 11:19 1% Lidocaine 20 ml Subcut Orville Mcmillan Jaskanwal 11:25 Fentanyl 25 mcg IV Orville Mcmillan Anne RN 11:25 Versed 0.5 mg IV Orville Mcmillan Anne RN 11:31 Heparin 8000 units IV Orville Mcmillan Anne RN 11:46 Heparin 5000 units IV Orville Mcmillan Anne RN 11:50 Fentanyl 25 mcg IV Orville Mcmillan Anne RN 11:50 Versed 0.5 mg IV Orville Mcmillan Anne RN 11:59 Adenosine 100 mcg IC Orville Mcmillan Jaskanwal 12:14 Nitroglycerin 200 mcg IC Orville Mcmillan Jaskanwal 12:14 Fentanyl 25 mcg IV Orville Mcmillan Anne RN 12:14 Versed 0.5 mg IV Orville Mcmillan Anne RN 12:24 Adenosine 100 mg IV Orville Mcmillan Jaskanwal 12:27 Papaverine 12 other Unknown Orville Mcmillan Jaskanwal 12:38 Heparin 3000 units IV Orville Mcmillan Anne RN 12:38 Fentanyl 25 mcg IV Orville Mcmillan Anne RN 12:39 Versed 0.5 mg IV Orville Mcmillan Anne RN 13:01 Fentanyl 25 mcg IV Orville Mcmillan Anne RN 13:01 Versed 0.5 mg IV Orville Mcmillan Anne RN 13:25 Fentanyl 25 mcg IV Orville Mcmillan Anne RN 13:25 Versed 0.5 mg IV Orville Mcmillan Anne RN 13:33 Heparin 2000 units IV Orville Mcmillan Anne RN 13:47 Fentanyl 25 mcg IV Orville Mcmillan Anne RN 13:47 Versed 0.5 mg IV Orville Mcmillan Anne RN 13:53 Nitroglycerin 100 mcg IC Orville Mcmillan Jaskanwal 14:02 Fentanyl 50 mcg IV Orville Mcmillan Anne RN 14:06 Protamine 30 mg IV Orville Mcmillan Anne RN 14:09 Lidocaine 1% w/Epi 1:100,000 5 ml Subcut Laurie Mcmillan Jaskanwal I personally monitored the patient?s conscious sedation during theprocedure. Conscious sedation starts with the first sedation medication dose ofFentanyl or Versed and ends when the procedure is completed, the patientis stable for recovery status, and the physician or other qualified healthcare professional providing the sedation ends personal [id number] time with the patient. The medications listed above were verbally ordered by me and read back tome as documented above. Refer to the procedure log report for additional case details. electronically signed on 08/13/2024 3:38:04 PM with status of Final Orville Landin MD [facility] [address] [place] [address] (p) [phone](f) us Provider Referring CV IMAGING Edited Result - Final * SCAN-CARDIAC STRIP (08/13/2024 8:42 AM AIRCRAFT ENGINE INSTALLER) us Scanner OTHER Final Result * Lactate, Venous - RN ANESTHESIOLOGY (08/12/2024 2:20 PM AIRCRAFT ENGINE INSTALLER) Only the most recent of2 resultswithin the time period is included. LACTATE,VENOUS 1.1 0.5 - 2.0 mmol/L 08/12/2024 3:03 PM AIRCRAFT ENGINE INSTALLER [facility] Blood BLOOD SPECIMEN / Unknown Non-Lab Venipuncture / Unknown 08/12/2024 2:20 PM AIRCRAFT ENGINE INSTALLER 08/12/2024 2:31 PM AIRCRAFT ENGINE INSTALLER Luis Manuel Leary MD CHEMISTRY Final R esult [facility] [address] [place] [address], * (ABNORMAL) BLOOD GAS,VENOUS (08/12/2024 2:20 PM AIRCRAFT ENGINE INSTALLER) PH, VENOUS 7.31(L) 7.32 - 7.43 08/12/2024 2:36 PM AIRCRAFT ENGINE INSTALLER [facility] PCO2, VENOUS 55(H) 41 - 51 mmHg 08/12/2024 2:36 PM AIRCRAFT ENGINE INSTALLER [facility] PO2, VENOUS 48(H) 35 - 40 mmHg 08/12/2024 2:36 PM AIRCRAFT ENGINE INSTALLER [facility] HCO3,VENOUS 28 22 - 29 mmol/L 08/12/2024 2:36 PM AIRCRAFT ENGINE INSTALLER [facility] BASE EXCESS, VENOUS, POCT 0.4 -2.0 - 3.0 08/12/2024 2:36 PM AIRCRAFT ENGINE INSTALLER [facility] O2 SATURATION, VENOUS 72 70 - 75 % 08/12/2024 2:36 PM AIRCRAFT ENGINE INSTALLER [facility] PATIENT TEMPERATURE 37.0 Degrees C 08/12/2024 2:36 PM AIRCRAFT ENGINE INSTALLER [facility] Blood VENOUS BLOOD SPECIMEN / Unknown Non-Lab Venipuncture / Unknown 08/12/2024 2:20 PM AIRCRAFT ENGINE INSTALLER 08/12/2024 2:31 PM AIRCRAFT ENGINE INSTALLER us Luis Manuel Leary MD CHEMISTRY Final R esult [facility] [address] [place] [address], [place] * (ABNORMAL) TROPONIN T (HS) ONE TIME (08/12/2024 1:21 PM AIRCRAFT ENGINE INSTALLER) Only the most recent of5 resultswithin the time period is included. Pathologist [facility] TROPONIN T HS 32(H) 6-15 ng/L ng/L 08/12/2024 2:08 PM AIRCRAFT ENGINE INSTALLER [facility] Blood BLOOD SPECIMEN / Unknown Venipuncture / Unknown 08/12/2024 1:21 PM AIRCRAFT ENGINE INSTALLER 08/12/2024 1:34 PM AIRCRAFT ENGINE INSTALLER Narrative [facility] - 08/12/2024 2:08 PM AIRCRAFT ENGINE INSTALLER hs-cTnT (Elecsys Troponin T Gen 5) concentration (s) above the sex-specific 99th percentile (16 ng/L or greater for males or 11 ng/L or greater for females) are indicative of myocardial injury. If initial hs-cTnT <=100 ng/L at presentation, a 0h/2h ABSOLUTE (ng/L) delta change (rising or falling) of >=10 ng/L suggests a significant change, whereas a 0h/2h delta change <=3 ng/L suggests no significant change. If initial hs-cTnT >100 ng/L at presentation, a 0h/2h/ RELATIVE (percent, %) delta change of 20% is suggested to distinguish patients with acute vs. chronic myocardial injury. There are multiple etiologies that can cause hs-cTnT increases above the 99th percentile (myocardial injury) other than acute myocardial infarction. Clinical context and careful clinical evaluation are critical for diagnosis and risk-stratification. The diagnosis of acute myocardial infarction requires a rising and/or falling pattern in hs-cTnT concentrations with at least one value above the sex-specific 99th percentile PLUS at least one of the following clinical criteria: ischemic symptoms, new or presumed new significant ST-T wave changes or new LBBB, development of pathological Q waves, imaging evidence of new loss of viable myocardium or new regional wall motion abnormality, or identification of intracoronary atherothrombosis or an acute angiographic culprit on coronary angiography. In appropriate low-risk patients with a non-ischemic electrocardiogram without active chest pain with a symptom onset >3-hours without recurrence, a single initial hs-cTnT<6 ng/L identifies patient with a very low risk in emergency department patient population. us Luis Manuel Leary MD CHEMISTRY Final R esult [facility] [address] [place] [address], [place] * SCAN-CARDIAC STRIP (08/12/2024 7:36 AM AIRCRAFT ENGINE INSTALLER) us Scanner OTHER Final Result * SCAN-CARDIAC STRIP (08/12/2024 4:15 AM AIRCRAFT ENGINE INSTALLER) us Scanner OTHER Final Result * XR hip 2 or 3 views w/pelvis RIGHT (08/11/2024 7:55 PM AIRCRAFT ENGINE INSTALLER) Anatomical Region Laterality Modality HIPS, HIPR, Pelvis Digital Radio graphy 08/11/2024 9:01 PM AIRCRAFT ENGINE INSTALLER Narrative 08/11/2024 9:01 PM AIRCRAFT ENGINE INSTALLER For Patients: As a result of the Cures Act, medical imaging exams and procedure reports are released immediately into your electronic medical record. You may view this report before your referring provider. If you have questions, please contact your health care provider. Indication: Fall, trauma Technique: Frontal view of the pelvis and two views of the right hip Comparison: CTA chest abdomen pelvis performed 11/05/2023 Findings/Impression: No acute radiographic abnormality appreciated. Dictated by Milton Gómez MD @ 08/11/2024 9:01:56 PM (Electronically Signed) Procedure Note Milton Gómez MD - 08/11/2024 For Patients: As a result of the Cures Act, medical imagingexams and procedure reports are released immediately into your electronicmedical record. You may view this report before your referring provider.If you have questions, please contact your health care provider. Indication: Fall, trauma Technique: Frontal view of the pelvis and two views of the right hip Comparison: CTA chest abdomen pelvis performed 11/05/2023 Findings/Impression: No acute radiographic abnormality appreciated. Dictated by Milton Gómez MD @ 08/11/2024 9:01:56 PM (Electronically Signed) Luis Manuel Leary MD GENERAL IMAGING Final R esult * XR shoulder RIGHT 3 views TODAY (08/11/2024 7:55 PM AIRCRAFT ENGINE INSTALLER) Anatomical Region Laterality Modality SHOULDERS, SHOULDER R Digital Ra diography 08/11/2024 9:02 PM AIRCRAFT ENGINE INSTALLER Narrative 08/11/2024 9:02 PM AIRCRAFT ENGINE INSTALLER For Patients: As a result of the Cures Act, medical imaging exams and procedure reports are released immediately into your electronic medical record. You may view this report before your referring provider. If you have questions, please contact your health care provider. Indication: Fall, trauma Technique: Three views of the right shoulder Comparison: None Findings/Impression: Moderate osteoarthritis with no acute radiographic abnormality appreciated. Dictated by Milton Gómez MD @ 08/11/2024 9:02:31 PM (Electronically Signed) Procedure Note Milton Gómez MD - 08/11/2024 For Patients: As a result of the Cures Act, medical imagingexams and procedure reports are released immediately into your electronicmedical record. You may view this report before your referring provider.If you have questions, please contact your health care provider. Indication: Fall, trauma Technique: Three views of the right shoulder Comparison: None Findings/Impression: Moderate osteoarthritis with no acute radiographic abnormalityappreciated. Dictated by Milton Gómez MD @ 08/11/2024 9:02:31 PM (Electronically Signed) Luis Manuel Leary MD GENERAL IMAGING Final R esult * SCAN-CARDIAC STRIP (08/11/2024 5:28 PM AIRCRAFT ENGINE INSTALLER) us Scanner OTHER Final Result * CT Cervical spine without contrast TODAY (08/11/2024 5:16 PM AIRCRAFT ENGINE INSTALLER) Anatomical Region Laterality Modality CERVICAL SPINE, NECK, Spine Comp uted Tomography 08/11/2024 6:07 PM AIRCRAFT ENGINE INSTALLER Impressions 08/11/2024 6:07 PM AIRCRAFT ENGINE INSTALLER 1. No acute fractures or other acute osseous abnormalities. 2. C5 through C7 ACDF without complication. Please note that all CT scans at this facility use dose modulation, iterative reconstruction, and/or weight-based dosing when appropriate to reduce radiation dose to as low as reasonably achievable. Dictated by Erik Aponte MD @ 08/11/2024 6:07:02 PM (Electronically Signed) Narrative 08/11/2024 6:07 PM AIRCRAFT ENGINE INSTALLER For Patients: As a result of the Cures Act, medical imaging exams and procedure reports are released immediately into your electronic medical record. You may view this report before your referring provider. If you have questions, please contact your health care provider. INDICATION: Neck pain. TECHNIQUE: CT of the cervical spine without contrast. Coronal and sagittal reformats are included. COMPARISON: None. FINDINGS: Fractures and other acute findings: None. Hardware: C5 through C7 ACDF. No complications. Spacer devices are well integrated with the adjacent endplates. Spinal alignment: Straightening of the typical cervical lordotic curve. Significant cervical spondylosis: Osseous fusion along the left C3-4 and left C5 through C7 facets. Scattered uncovertebral and facet arthrosis without high- grade neural foraminal stenosis. No CT visualized high-grade spinal canal stenosis as far as visualized. Paraspinal soft tissues and imaged lungs: Within normal limits. Procedure Note Erik Aponte MD - 08/11/2024 For Patients: As a result of the Cures Act, medical imagingexams and procedure reports are released immediately into your electronicmedical record. You may view this report before your referring provider.If you have questions, please contact your health care provider. INDICATION: Neck pain. TECHNIQUE: CT of the cervical spine without contrast. Coronal and sagittal reformatsare included. COMPARISON: None. FINDINGS: Fractures and other acute findings: None. Hardware: C5 through C7 ACDF. No complications. Spacer devices are wellintegrated with the adjacent endplates. Spinal alignment: Straightening of the typical cervical lordotic curve. Significant cervical spondylosis: Osseous fusion along the left C3-4 andleft C5 through C7 facets. Scattered uncovertebral and facet arthrosiswithout high-grade neural foraminal stenosis. No CT visualized high-gradespinal canal stenosis as far as visualized. Paraspinal soft tissues and imaged lungs: Within normal limits. IMPRESSION: 1. No acute fractures or other acute osseous abnormalities. 2. C5 through C7 ACDF without complication. Please note that all CT scans at this facility use dose modulation,iterative reconstruction, and/or weight-based dosing when appropriate toreduce radiation dose to as low as reasonably achievable. Dictated by Erik Aponte MD @ 08/11/2024 6:07:02 PM (Electronically Signed) us Luis Manuel Leary MD CT Final R esult * CT head without contrast (08/11/2024 5:08 PM AIRCRAFT ENGINE INSTALLER) Anatomical Region Laterality Modality HEAD, BRAIN Computed Tomogra phy 08/11/2024 6:09 PM AIRCRAFT ENGINE INSTALLER Impressions 08/11/2024 6:09 PM AIRCRAFT ENGINE INSTALLER IMPRESSION:1. No CT evidence of acute cortical infarct. No acute intracranial hemorrhage. No other acute intracranial findings. Please note that all CT scans at this facility use dose modulation, iterative reconstruction, and/or weight-based dosing when appropriate to reduce radiation dose to as low as reasonably achievable. Dictated by Erik Aponte MD @ 08/11/2024 6:09:40 PM (Electronically Signed) Narrative 08/11/2024 6:09 PM AIRCRAFT ENGINE INSTALLER For Patients: As a result of the 21st Century Cures Act, medical imaging exams and procedure reports are released immediately into your electronic medical record. You may view this report before your referring provider. If you have questions, please contact your health care provider. INDICATION: Headaches. TECHNIQUE: CT of the head without contrast. Coronal and sagittal reformats are included. COMPARISON: Head CT from 07/27/2023. FINDINGS: No CT evidence of acute cortical infarct. No loss of smith white matter differentiation. No hyperdense vessels to suggest intracranial thrombus. No acute intracranial hemorrhage. No mass effect or midline shift. No hydrocephalus or extra-axial collections. Patchy white matter hypoattenuation, typical for chronic microvascular ischemic change. Atherosclerotic vascular calcifications. No acute osseous abnormalities. Mastoid air cells and paranasal sinuses are clear. Normal soft tissues. Procedure Note Erik Aponte MD - 08/11/2024 For Patients: As a result of the Cures Act, medical imagingexams and procedure reports are released immediately into your electronicmedical record. You may view this report before your referring provider.If you have questions, please contact your health care provider. INDICATION: Headaches. TECHNIQUE: CT of the head without contrast. Coronal and sagittal reformats areincluded. COMPARISON: Head CT from 07/27/2023. FINDINGS: No CT evidence of acute cortical infarct. No loss of smith white matterdifferentiation. No hyperdense vessels to suggest intracranial thrombus.No acute intracranial hemorrhage. No mass effect or midline shift. Nohydrocephalus or extra-axial collections. Patchy white matterhypoattenuation, typical for chronic microvascular ischemic change.Atherosclerotic vascular calcifications. No acute osseous abnormalities. Mastoid air cells and paranasal sinusesare clear. Normal soft tissues. IMPRESSION: IMPRESSION:1. No CT evidence of acute cortical infarct. No acuteintracranial hemorrhage. No other acute intracranial findings. Please note that all CT scans at this facility use dose modulation,iterative reconstruction, and/or weight-based dosing when appropriate toreduce radiation dose to as low as reasonably achievable. Dictated by Erik Aponte MD @ 08/11/2024 6:09:40 PM (Electronically Signed) us Luis Manuel Leary MD CT Final R esult * SCAN-CARDIAC STRIP (08/11/2024 7:23 AM AIRCRAFT ENGINE INSTALLER) us Scanner OTHER Final Result * SCAN-CARDIAC STRIP (08/11/2024 5:57 AM AIRCRAFT ENGINE INSTALLER) us Scanner OTHER Final Result * SCAN-CARDIAC STRIP (08/10/2024 10:30 AM AIRCRAFT ENGINE INSTALLER) us Scanner OTHER Final Result * SCAN-CARDIAC STRIP (08/10/2024 6:22 AM AIRCRAFT ENGINE INSTALLER) us Scanner OTHER Final Result * CT Chest without contrast (08/09/2024 9:05 AM AIRCRAFT ENGINE INSTALLER) Anatomical Region Laterality Modality CHEST, THORAX, HEART Computed To mography 08/09/2024 3:10 PM AIRCRAFT ENGINE INSTALLER Impressions 08/09/2024 3:10 PM AIRCRAFT ENGINE INSTALLER 1. Small bilateral pleural effusions. 2. No mass or infiltrate correlate with the opacity seen on the recent chest x- ray. Please note that all CT scans at this facility use dose modulation, iterative reconstruction, and/or weight-based dosing when appropriate to reduce radiation dose to as low as reasonably achievable. Dictated by Ricardo Eldridge MD @ 08/09/2024 3:10:11 PM (Electronically Signed) Narrative 08/09/2024 3:10 PM AIRCRAFT ENGINE INSTALLER For Patients: As a result of the Cures Act, medical imaging exams and procedure reports are released immediately into your electronic medical record. You may view this report before your referring provider. If you have questions, please contact your health care provider. INDICATION: Right lung opacity. Abnormal chest x-ray. TECHNIQUE: CT chest without contrast. COMPARISON: Chest x-ray July 31, 2024. CT chest November 06, 2023. FINDINGS: Lungs and pleura: No suspicious nodules or infiltrates. Small bilateral pleural effusions. No pneumothorax. Heart and vasculature: Heart size is normal. Thoracic aorta and pulmonary artery are normal in caliber. Coronary artery atherosclerosis is present. Lymph nodes/mediastinum: No mediastinal, hilar, or axillary adenopathy. Chest wall: No masses. Upper abdomen: No significant findings. Bones: Unremarkable for age. Procedure Note Ricardo Eldridge MD - 08/09/2024 For Patients: As a result of the Cures Act, medical imagingexams and procedure reports are released immediately into your electronicmedical record. You may view this report before your referring provider.If you have questions, please contact your health care provider. INDICATION: Right lung opacity. Abnormal chest x-ray. TECHNIQUE: CT chest without contrast. COMPARISON: Chest x-ray July 31, 2024. CT chest November 06, 2023. FINDINGS: Lungs and pleura: No suspicious nodules or infiltrates. Small bilateralpleural effusions. No pneumothorax. Heart and vasculature: Heart size is normal. Thoracic aorta and pulmonaryartery are normal in caliber. Coronary artery atherosclerosis ispresent. Lymph nodes/mediastinum: No mediastinal, hilar, or axillary adenopathy. Chest wall: No masses. Upper abdomen: No significant findings. Bones: Unremarkable for age. IMPRESSION: 1. Small bilateral pleural effusions. 2. No mass or infiltrate correlate with the opacity seen on the recentchest x- ray. Please note that all CT scans at this facility use dose modulation,iterative reconstruction, and/or weight-based dosing when appropriate toreduce radiation dose to as low as reasonably achievable. Dictated by Ricardo Eldridge MD @ 08/09/2024 3:10:11 PM (Electronically Signed) us Anel Fitzgerald MD CT Final R esult * SCAN-CARDIAC STRIP (08/09/2024 8:34 AM AIRCRAFT ENGINE INSTALLER) us Scanner OTHER Final Result * XR CHEST 1 VIEW PORTABLE (08/08/2024 12:34 PM AIRCRAFT ENGINE INSTALLER) Anatomical Region Laterality Modality HEART, THORAX, CHEST Digital Rad iography 08/08/2024 12:5 2 PM AIRCRAFT ENGINE INSTALLER Addenda Addendum by Buzz Albright MD, PhD on 08/08/2024 12:53 PM AIRCRAFT ENGINE INSTALLER For Patients: As a result of the Century Cures Act, medical imaging exams and procedure reports are released immediately into your electronic medical record. You may view this report before your referring provider. If you have questions, please contact your health care provider. INDICATION: Shortness of breath. Comparison 08/05/2024. Technique portable chest x-ray. FINDINGS: Compared to the previous exam, there is a new focal rounded opacity within the right midlung measures approximately 1.8 cm in diameter. Finding may represent a focal infiltrate or mass. No pleural effusions. No pneumothorax. Normal cardiomediastinal silhouette. Degenerative changes visualized left shoulder. IMPRESSION: 1. New focal opacity within the right mid lung is indeterminate. The pulmonary mass cannot be excluded. Consider followup with CT chest for further evaluation. Dictated by Buzz Albright MD @ 08/08/2024 12:52:59 PM (Electronically Signed) Narrative 08/08/2024 12:45 PM AIRCRAFT ENGINE INSTALLER Indication: Shortness of breath. Comparison: Chest x-ray dated 05 August 2024. Findings: A single portable chest x-ray shows a normal cardiac silhouette. The lungs show no focal pulmonary opacities. Sharp pleural margins. No pneumothorax. Stabilization hardware in the lower cervical spine. Impression: No focal pulmonary opacities. No pneumothorax. Procedure Note Quincy Rivera MD / Buzz Albright MD, PhD - 08/08/2024 Indication: Shortness of breath. Comparison: Chest x-ray dated 05 August 2024. Findings: A single portable chest x-ray shows a normal cardiac silhouette. The lungs show no focal pulmonary opacities. Sharp pleural margins. Nopneumothorax. Stabilization hardware in the lower cervical spine. Impression: No focal pulmonary opacities. No pneumothorax. us Anel Fitzgerald MD GENERAL IMAGING Edited Result - Final * SCAN-CARDIAC STRIP (08/08/2024 9:57 AM AIRCRAFT ENGINE INSTALLER) us Scanner OTHER Final Result * (ABNORMAL) Creatinine FOR ADD ON (08/08/2024 7:31 AM AIRCRAFT ENGINE INSTALLER) Only the most recent of4 resultswithin the time period is included. eGFR 64(L) >90 mL/min/1.7 3m2 08/08/2024 9:02 AM AIRCRAFT ENGINE INSTALLER [facility] Comment:As of 2021, eG FR is calculated by the CKD-EPI creatinine equation without race adjustment. eGFR can be influenced by muscle mass, exercise, and diet. The reported eGFR is an estimation only and is only applicable if the renal function is stable. CREATININE 1.23(H) 0.70 - 1.20 mg/dL 08/08/2024 9:02 AM AIRCRAFT ENGINE INSTALLER [facility] Blood BLOOD SPECIMEN / Unknown Venipuncture / Unknown 08/08/2024 7:31 AM AIRCRAFT ENGINE INSTALLER 08/08/2024 7:41 AM AIRCRAFT ENGINE INSTALLER us Anel Fitzgerald MD CHEMISTRY Final R esult Performing Organization Address [facility] Co de Phone Number [facility] [address] [address], [place] * SCAN-CARDIAC STRIP (08/08/2024 5:54 AM AIRCRAFT ENGINE INSTALLER) us Scanner OTHER Final Result * WBC TODAY (08/08/2024 12:02 AM AIRCRAFT ENGINE INSTALLER) Pathologist [facility] WHITE BLOOD COUNT 7.6 4.5 - 11.0 thou/cu mm 08/08/2024 12:18 AM AIRCRAFT ENGINE INSTALLER [facility] NRBC 0.0 % 08/08/2024 12:18 AM AIRCRAFT ENGINE INSTALLER [facility] ABS NRBC 0.0 thou /cu mm 08/08/2024 12:18 AM AIRCRAFT ENGINE INSTALLER [facility] Blood BLOOD SPECIMEN / Unknown Venipuncture / Unknown 08/08/2024 12:02 AM AIRCRAFT ENGINE INSTALLER 08/08/2024 12:15 AM AIRCRAFT ENGINE INSTALLER us Marion Jansen MD HEMATOLOGY Final Resul t Performing Organization Address [facility] de Phone Number [facility] [address] [address], [place] * US Venous doppler RIGHT upper extremity (08/07/2024 4:16 PM AIRCRAFT ENGINE INSTALLER) Anatomical Region Laterality Modality ARMS, ARM R Ultrasound 08/07/2024 4:38 PM AIRCRAFT ENGINE INSTALLER Impressions 08/07/2024 4:38 PM AIRCRAFT ENGINE INSTALLER 1. Superficial thrombophlebitis within the mid basilic vein with minimal encroachment of the basilic/brachial junction without evidence of definite extension of the thrombus into the deep system. Dictated by Gulshan Mckinney MD @ 08/07/2024 4:38:01 PM (Electronically Signed) Narrative 08/07/2024 4:38 PM AIRCRAFT ENGINE INSTALLER For Patients: As a result of the Cures Act, medical imaging exams and procedure reports are released immediately into your electronic medical record. You may view this report before your referring provider. If you have questions, please contact your health care provider. INDICATION: Suspected superficial thrombophlebitis, rule out deep venous thrombosis TECHNIQUE: Ultrasound venous duplex upper right extremity. Compression venous exam was performed using bartlett-scale, color Doppler, and spectral Doppler imaging. COMPARISON: None. FINDINGS: The right internal jugular, subclavian, and axillary veins are patent with normal waveforms. The brachial, and cephalic veins are fully compressible. No soft tissue abnormalities seen. Redemonstration of extensive superficial thrombophlebitis within the basilic vein with minimal encroachment of the basilic/brachial junction without extension into the deep system. Procedure Note Gulshan Mckinney MD - 08/07/2024 For Patients: As a result of the Cures Act, medical imagingexams and procedure reports are released immediately into your electronicmedical record. You may view this report before your referring provider.If you have questions, please contact your health care provider. INDICATION: Suspected superficial thrombophlebitis, rule out deep venous thrombosis TECHNIQUE: Ultrasound venous duplex upper right extremity. Compression venous examwas performed using bartlett-scale, color Doppler, and spectral Dopplerimaging. COMPARISON: None. FINDINGS: The right internal jugular, subclavian, and axillary veins are patent withnormal waveforms. The brachial, and cephalic veins are fullycompressible. No soft tissue abnormalities seen. Redemonstration ofextensive superficial thrombophlebitis within the basilic vein withminimal encroachment of the basilic/brachial junction without extensioninto the deep system. IMPRESSION: 1. Superficial thrombophlebitis within the mid basilic vein with minimalencroachment of the basilic/brachial junction without evidence of definiteextension of the thrombus into the deep system. Dictated by Gulshan Mckinney MD @ 08/07/2024 4:38:01 PM (Electronically Signed) us Anel Fitzgerald MD Final R esult * MR CARDIAC WWO (08/07/2024 1:06 PM AIRCRAFT ENGINE INSTALLER) Anatomical Region Laterality Modality HEART, THORAX Magnetic Resonan ce 08/07/2024 11:4 8 AM AIRCRAFT ENGINE INSTALLER Narrative 08/07/2024 12:59 PM AIRCRAFT ENGINE INSTALLER [facility] CMR Report Name: HARRY LUNA : Scan Date: Accession Number: [id number] Status: Final Electronically signed by Anthony Allred 12:59:25 VITALS ===== HEIGHT: 74 in (188 cm) WEIGHT: 238 lbs (108 kgs) BSA: 2.34 m^2 FINAL IMPRESSION ===== 1. 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 A. Acute edema in the basilar through mid inferoseptum - PDA distribution. B. Marked increase in LV volumes and diffuse global hypokinesis. 2. Severe right ventricular systolic dysfunction, RVEF 24%. A. No discreet regional wall motion abnormalities. 3. Transmural basilar inferoseptal and inferior infarction. Subendocardial inferior with transmural mid through apical lateral infarction. A. Acute basilar septal infarction with some RCA viability. B. OM non-viable. C. LAD and diagonal with akinesis and completely viable. 4. Moderate left and mild right atrial enlargement. 5. Probable moderate mitral insufficiency (using volumes. No flows performed). 6. Small to moderate bilateral pleural effusions with (current) normal IVC size. 7. Normal aortic size. SUMMARY ===== LEFT VENTRICLE: No LV thrombus. Prominent myocardial edema in the basilar through mid inferoseptal hannon - RCA distribution. Quantitative LVEF 20 %. VIABILITY: LV scar size is 11 %. RIGHT VENTRICLE: Quantitative RVEF 24 %. LV/RV SEPTUM: The LV/RV septum is normal. LA/RA SEPTUM: The LA/RA septum is normal. LEFT ATRIUM: LA is moderately enlarged. RIGHT ATRIUM: RA is mildly enlarged. PERICARDIUM: The pericardium is normal. PLEURAL EFFUSION: There is a small right pleural effusion. There is a small left pleural effusion. AORTIC VALVE: The aortic valve is normal. MITRAL VALVE: There is moderate mitral regurgitation (using volumes. No flows performed). AORTIC ROOT: The aortic root is normal. OTHER FINDINGS: Normal IVC size. CORE EXAM ===== MEASUREMENTS ----- --- VOLUMETRIC ANALYSIS . . LV Reference RV Reference +------+--------+-----+ +-----+ + EDV ml 336 (109-191) 197 (105-205) ml/m^2 144 (60-95) 84 (56-101) ESV ml 269 (27-72) 150 (20-80) ml/m^2 115 (14-36) 64 (11-40) CO MASS g 175 (107-183) g/m^2 75 (57-90) SV ml 67 (73-129) 47 (71-139) ml/m^2 29 (40-64) 20 (37-69) EF % 20 (58-76) 24 (55-81) '------+--------+-----+ +-----+ ' EXTRACELLULAR VOLUME MEASUREMENT PRE-CONTRAST T1 MYOCARDIUM: 1023 msec 17 SEGMENT ----- --- . ----- -----. Segments Wall Motion Hyperenhancement Stress Perfusion Interpretation + + + + +------ ----- -----+ Base Anterior Base Anteroseptal Base Inferoseptal 1-25% Sub-Endo WV Base Inferior 1-25% Sub-Endo WV Base Inferolateral 26-50% Sub-Endo WV Base Anterolateral Mid Anterior Mid Anteroseptal Mid Inferoseptal Mid Inferior Mid Inferolateral 51-75% Transmural WV Mid Anterolateral 51-75% Transmural WV Apical Anterior Apical Septal Apical Inferior Apical Lateral [place] + + + + +------ ----- -----+ RV Segments Wall Motion Hyperenhancement Interpretation + + + + +------ ----- -----+ RV Basal Anterior RV Basal Inferior RV Mid RV Apical ' + + + +------ ----- -----' FINDINGS LV SCAR SIZE (17 SEGMENT): 11 % ADDITIONAL FINDINGS: Posteromedial papillary muscle. SCAN INFO ===== GENERAL ----- --- SCANNER ABRASIVE WATER JET CUTTER OPERATOR: SIEMENS MODEL: Aera CONTRAST AGENT TYPE: Gadavist GD CONCENTRATION: 1.0 M SETUP REASON(S) FOR SCAN: Ischemic vs nonischemic REFERRING PHYSICIAN: AJ ANN ATTENDING PHYSICIAN: ANEL FITZGERALD BILLING ===== Patient Account [id number] Report generated by [employer], a product of [employer] Procedure Note Anthony Allred MD - 08/07/2024 [facility] CMR Report Name: HARRY LUNA : Scan Date: Accession Number: [id number] Status: Final Electronically signed by Anthony Allred 12:59:25 VITALS ===== HEIGHT: 74 in (188 cm) WEIGHT: 238 lbs (108 kgs) BSA: 2.34 m^2 FINAL IMPRESSION ===== 1. Mixed ischemic and non-ischemic cardiomyopathy with severe leftventricular systolic dysfunction, LEVEF 20%. A. Acute edema in the basilar through mid inferoseptum - PDAdistribution. B. Marked increase in LV volumes and diffuse global hypokinesis. 2. Severe right ventricular systolic dysfunction, RVEF 24%. A. No discreet regional wall motion abnormalities. 3. Transmural basilar inferoseptal and inferior infarction.Subendocardial inferior with transmural mid through apical lateral infarction. A. Acute basilar septal infarction with some RCA viability. B. OM non-viable. C. LAD and diagonal with akinesis and completely viable. 4. Moderate left and mild right atrial enlargement. 5. Probable moderate mitral insufficiency (using volumes. No flowsperformed). 6. Small to moderate bilateral pleural effusions with (current) normalIVC size. 7. Normal aortic size. SUMMARY ===== LEFT VENTRICLE: No LV thrombus. Prominent myocardial edema in the basilarthrough mid inferoseptal hannon - RCA distribution. Quantitative LVEF 20 %. VIABILITY: LV scar size is 11 %. RIGHT VENTRICLE: Quantitative RVEF 24 %. LV/RV SEPTUM: The LV/RV septum is normal. LA/RA SEPTUM: The LA/RA septum is normal. LEFT ATRIUM: LA is moderately enlarged. RIGHT ATRIUM: RA is mildly enlarged. PERICARDIUM: The pericardium is normal. PLEURAL EFFUSION: There is a small right pleural effusion. There is asmall left pleural effusion. AORTIC VALVE: The aortic valve is normal. MITRAL VALVE: There is moderate mitral regurgitation (using volumes. Noflows performed). AORTIC ROOT: The aortic root is normal. OTHER FINDINGS: Normal IVC size. CORE EXAM ===== MEASUREMENTS ----- --- VOLUMETRIC ANALYSIS . . LV Reference RV Reference +------+--------+-----+ +-----+ + EDV ml 336 (109-191) 197 (105-205) ml/m^2 144 (60-95) 84 (56-101) ESV ml 269 (27-72) 150 (20-80) ml/m^2 115 (14-36) 64 (11-40) CO MASS g 175 (107-183) g/m^2 75 (57-90) SV ml 67 (73-129) 47 (71-139) ml/m^2 29 (40-64) 20 (37-69) EF % 20 (58-76) 24 (55-81) '------+--------+-----+ +-----+ ' EXTRACELLULAR VOLUME MEASUREMENT PRE-CONTRAST T1 MYOCARDIUM: 1023 msec 17 SEGMENT ----- --- . ----- -----. Segments Wall Motion Hyperenhancement Stress Perfusion Interpretation + + + + +------ ----- -----+ Base Anterior Base Anteroseptal Base Inferoseptal 1-25% Sub-Endo WV Base Inferior 1-25% Sub-Endo WV Base Inferolateral 26-50% Sub-Endo WV Base Anterolateral Mid Anterior Mid Anteroseptal Mid Inferoseptal Mid Inferior Mid Inferolateral 51-75% Transmural WV Mid Anterolateral 51-75% Transmural WV Apical Anterior Apical Septal Apical Inferior Apical Lateral [place] + + + + +------ ----- -----+ RV Segments Wall Motion Hyperenhancement Interpretation + + + + +------ ----- -----+ RV Basal Anterior RV Basal Inferior RV Mid RV Apical ' + + + +------ ----- -----' FINDINGS LV SCAR SIZE (17 SEGMENT): 11 % ADDITIONAL FINDINGS: Posteromedial papillary muscle. SCAN INFO ===== GENERAL ----- --- SCANNER ABRASIVE WATER JET CUTTER OPERATOR: SIEMENS MODEL: Aera CONTRAST AGENT TYPE: Gadavist GD CONCENTRATION: 1.0 M SETUP REASON(S) FOR SCAN: Ischemic vs nonischemic REFERRING PHYSICIAN: AJ ANN ATTENDING PHYSICIAN: ANEL FITZGERALD BILLING ===== Patient Account [id number] Report generated by [employer], a product of [employer] us Temi Ma LEVER OPERATOR MR Final Res ult * SCAN-CARDIAC STRIP (08/07/2024 8:44 AM AIRCRAFT ENGINE INSTALLER) us Scanner OTHER Final Result * SCAN-CARDIAC STRIP (08/06/2024 8:50 PM AIRCRAFT ENGINE INSTALLER) us Scanner OTHER Final Result * SCAN-CARDIAC STRIP (08/06/2024 10:30 AM AIRCRAFT ENGINE INSTALLER) us Scanner OTHER Final Result * CVL CORONARY ANGIOGRAM POSS PCI (08/06/2024 9:22 AM AIRCRAFT ENGINE INSTALLER) Anatomical Region Laterality Modality Other 08/06/2024 9:22 AM AIRCRAFT ENGINE INSTALLER Narrative Transcriptions Jose Manuel Amado MD - 08/06/2024 10:01 AM CST [facility] at [facility] Cardiac Catheterization Report Name: HARRY LUNA Event Date: 08/06/2024 09:22 Emmanuelian ID #: [id number] FAY #: [id number] Patient Class: Inpatient Diagnostic Physician: JOSE MANUEL AMADO [facility] Interventional Physician: JOSE MANUEL AMADO [facility] Referring Physician: Lakesha Khan Date: 1955 Gender: Male Age: 68 Summary/Conclusions INDICATIONS - Recurrent chest pain 48 hrs post-PCI of RCA for severe, recurrent ISR DIAGNOSTIC SUMMARY ? The Proximal LAD has a 70% stenosis at takeoff of moderate diagonal thathas 70% proximal disease. The iFR of the LAD is positive (0.83) anddiagonal is positive (0.88) ? The CX and OMs have mild disease ? The stents in mid-LAD are patent but there has been significant recoilin mid- RCA stent from 3 days previously. the iFR is negative at 0.93. Thesmall first PDA has moderate, diffuse disease as previously described ? The RFA was closed with a 6F angioseal INTERVENTION ? Pressure Wire to Proximal LAD ? Pressure Wire to 1st Diagonal ? Pressure Wire to Mid RCA IMPRESSION: Given recurrent recoil in RCA stent having undergone multipleinterventions at this site with more severe LAD / Diagonal disease with+iFR would consider surgical revascularization. Consent & [place] Protocol The risks, benefits, and alternatives of the procedure were discussed withthe patient and written informed consent was obtained. [place] protocol was followed. TIME OUT conducted just prior tostarting procedure confirmed patient identity, site/side, procedure,patient position, and availability of correct equipment and implants (ifapplicable). Staff Name Title JOSE MANUEL AMADO Diagnostic Methods Engineer Eliezer Betancourt RN Nurse Padmini Alva CVT Scrub Shantal Hammond CVT Monitor JOSE MAUNEL AMADO Executive Director Procedures ? Femoral Angio for Possible Closure Device ? Coronary Angiogram ? Coronary Fractional Flow Measurement ? Coronary Fractional Flow Measurement, Addl ? Femoral Closure Device Diagnostic Findings * Left Anterior Descending ? stenosis in the Proximal LAD. The lesion has a MATIAS flow of 3. ? stenosis in the 1st Diagonal. The lesion has a MATIAS flow of 3. * Right Coronary Artery ? stenosis in the Mid RCA. The lesion has a MATIAS flow of 3. Lesion Information Lesion # Vessel Segment Lesion Length Lesion Details 1 Mid RCA 2 Proximal LAD 3 1st Diagonal Hemodynamics State: Baseline Pressures (mmHg) Site Systolic Diastolic End Diastolic A Wave V Wave Mean AO 126 63 75 Interventional Results * Left Anterior Descending ? Intervention to the Proximal LAD using a Pressure Wire. The finalTIMI flow was 3. ? Intervention to the 1st Diagonal using a Pressure Wire. The finalTIMI flow was 3. * Right Coronary Artery ? Intervention to the Mid RCA using a Pressure Wire. The final TIMIflow was 3. Interventional Devices Lesion # Vessel Segment Type Name Max Pressure 1 Mid RCA Pressure Wire Wire Pressure Guide [id number] [id number]> 2 Proximal LAD Pressure Wire Wire Pressure Guide OMNIwire [id number]> 3 1st Diagonal Pressure Wire Wire Pressure Guide OMNIwire [id number]> Procedure Details Estimated Blood Loss: < 30 ml Specimen Collected: None Level of Sedation Achieved: Mild Procedure Start: 09:22 Procedure End: 09:49 Procedure Time: 27 min Fluoroscopy Time: 7 min Cumulative Air Kerma: 356 mGy DAP: 2450 uGy/M2 Contrast: Omnipaque (low-osmolar), 65 ml Physiologic Data Weight: 108.0 kg BSA: 2.34 m2 Vascular Access Time Access Sheath Size 09:23 Right Femoral Artery, sheath inserted 09:23 Right Femoral Vein, sheath inserted. Complications ? No Complications Medications Ordered and Administered Start Time Stop Time Medication Dose Units Route Ordered By Given By 09:19 Fentanyl 50 mcg IV Jose Manuel Amado Nathan RN 09:19 Versed 1 mg IV Jose Manuel Amado Nathan RN 09:23 1% Lidocaine 20 ml Subcut Jose Manuel Amado Jay H 09:23 Versed 0.5 mg IV Jose Manuel Amado Nathan RN 09:23 Fentanyl 25 mcg IV Jose Manuel Amado Nathan RN 09:27 Nitroglycerin 100 mcg IC Jose Manuel Amado Jay H 09:27 Heparin 5000 units IV Jose Manuel Amado Jay H 09:41 Nitroglycerin 100 mcg IC Jose Manuel Amado Jay H 09:47 Versed 0.5 mg IV Jose Manuel Amado Nathan RN 09:48 Fentanyl 25 mcg IV Jose Manuel Amado Nathan RN I personally monitored the patient?s conscious sedation during theprocedure. Conscious sedation starts with the first sedation medication dose ofFentanyl or Versed and ends when the procedure is completed, the patientis stable for recovery status, and the physician or other qualified healthcare professional providing the sedation ends personal [id number] time with the patient. The medications listed above were verbally ordered by me and read back tome as documented above. Refer to the procedure log report for additional case details. electronically signed on 08/06/2024 10:01:55 AM with status of Final Jose Manuel Amado MD [facility] [address] [phone]) [phone](f) us Provider Referring [facility] IMAGING Edited Result - Final * Sodium AM (08/06/2024 6:44 AM AIRCRAFT ENGINE INSTALLER) Only the most recent of2 resultswithin the time period is included. SODIUM 138 136 - 145 mmol/L 08/06/2024 7:27 AM AIRCRAFT ENGINE INSTALLER [facility] Blood BLOOD SPECIMEN / Unknown Venipuncture / Unknown 08/06/2024 6:44 AM AIRCRAFT ENGINE INSTALLER 08/06/2024 7:00 AM AIRCRAFT ENGINE INSTALLER us Anel Fitzgerald MD CHEMISTRY Final R esult [facility] [address] [place] [address], * SCAN-CARDIAC STRIP (08/06/2024 3:05 AM AIRCRAFT ENGINE INSTALLER) us Scanner OTHER Final Result * (ABNORMAL) TROPONIN T (HS) ACUTE W/2HR REFLEX - RN ANESTHESIOLOGY (08/05/2024 9:33 PM AIRCRAFT ENGINE INSTALLER) Only the most recent of3 resultswithin the time period is included. TROPONIN T HS 172(H) 6-15 ng/L ng/L 08/05/2024 10:02 PM [facility] Blood BLOOD SPECIMEN / Unknown Venipuncture / Unknown 08/05/2024 9:33 PM AIRCRAFT ENGINE INSTALLER 08/05/2024 9:39 PM AIRCRAFT ENGINE INSTALLER [facility] LAB[facility]ATORY - 08/05/2024 10:02 PM [facility] hs-cTnT (Elecsys Troponin T Gen 5) concentration (s) above the sex-specific 99th percentile (16 ng/L or greater for males or 11 ng/L or greater for females) are indicative of myocardial injury. If initial hs-cTnT <=100 ng/L at presentation, a 0h/2h ABSOLUTE (ng/L) delta change (rising or falling) of >=10 ng/L suggests a significant change, whereas a 0h/2h delta change <=3 ng/L suggests no significant change. If initial hs-cTnT >100 ng/L at presentation, a 0h/2h/ RELATIVE (percent, %) delta change of 20% is suggested to distinguish patients with acute vs. chronic myocardial injury. There are multiple etiologies that can cause hs-cTnT increases above the 99th percentile (myocardial injury) other than acute myocardial infarction. Clinical context and careful clinical evaluation are critical for diagnosis and risk-stratification. The diagnosis of acute myocardial infarction requires a rising and/or falling pattern in hs-cTnT concentrations with at least one value above the sex-specific 99th percentile PLUS at least one of the following clinical criteria: ischemic symptoms, new or presumed new significant ST-T wave changes or new LBBB, development of pathological Q waves, imaging evidence of new loss of viable myocardium or new regional wall motion abnormality, or identification of intracoronary atherothrombosis or an acute angiographic culprit on coronary angiography. In appropriate low-risk patients with a non-ischemic electrocardiogram without active chest pain with a symptom onset >3-hours without recurrence, a single initial hs-cTnT<6 ng/L identifies patient with a very low risk in emergency department patient population. Anel Fitzgerald MD CHEMISTRY Final R esult [facility] [address] [place] [address], [place] * XR CHEST 2 VIEWS PA AND LATERAL (08/05/2024 10:42 AM AIRCRAFT ENGINE INSTALLER) Only the most recent of2 resultswithin the time period is included. Anatomical Region Laterality Modality CHEST, THORAX, Lung, HEART Digit al Radiography 08/05/2024 10:5 6 AM AIRCRAFT ENGINE INSTALLER Impressions 08/05/2024 10:56 AM AIRCRAFT ENGINE INSTALLER 1. No change in small pleural effusions. 2. No acute lung infiltrate. Dictated by Jordy Akhtar MD @ Aug 05 2024 10:56AM (Electronically Signed) [email or web address] Narrative 08/05/2024 10:56 AM AIRCRAFT ENGINE INSTALLER For Patients: As a result of the Cures Act, medical imaging exams and procedure reports are released immediately into your electronic medical record. You may view this report before your referring provider. If you have questions, please contact your health care provider. HISTORY: CHF. TECHNIQUE: Two views of the chest. COMPARISON: 08/03/2024. FINDINGS: No change in very small pleural effusions. No acute lung infiltrate. No pneumothorax. Stable heart size. No pulmonary vascular redistribution. Prior cervical fusion along with degenerative changes thoracic spine. Procedure Note Jordy Akhtar MD - 08/05/2024 For Patients: As a result of the Cures Act, medical imagingexams and procedure reports are released immediately into your electronicmedical record. You may view this report before your referring provider.If you have questions, please contact your health care provider. HISTORY: CHF. TECHNIQUE: Two views of the chest. COMPARISON: 08/03/2024. FINDINGS: No change in very small pleural effusions. No acute lung infiltrate. Nopneumothorax. Stable heart size. No pulmonary vascular redistribution.Prior cervical fusion along with degenerative changes thoracic spine. IMPRESSION: 1. No change in small pleural effusions. 2. No acute lung infiltrate. Dictated by Jordy Akhtar MD @ Aug 05 2024 10:56AM (Electronically Signed) [email or web address] us Anel Fitzgerald MD GENERAL IMAGING Final R esult * SCAN-CARDIAC STRIP (08/05/2024 8:11 AM AIRCRAFT ENGINE INSTALLER) us Scanner OTHER Final Result * SCAN-CARDIAC STRIP (08/05/2024 8:11 AM AIRCRAFT ENGINE INSTALLER) us Scanner OTHER Final Result * SCAN-CARDIAC STRIP (08/05/2024 8:11 AM AIRCRAFT ENGINE INSTALLER) us Scanner OTHER Final Result * TSH (08/05/2024 6:09 AM AIRCRAFT ENGINE INSTALLER) TSH 1.72 0.27 - 4.20 uIU/mL 08/05/2024 7:07 AM AIRCRAFT ENGINE INSTALLER [facility] Blood BLOOD SPECIMEN / Unknown Butterfly / Unknown 08/05/2024 6:09 AM AIRCRAFT ENGINE INSTALLER 08/05/2024 6:23 AM AIRCRAFT ENGINE INSTALLER Narrative [facility] - 08/05/2024 7:07 AM AIRCRAFT ENGINE INSTALLER In Adults, TSH values between 5.00 and 10.00 uIU/ml do not necessarily indicate the presence of Hypothyroidism. Correlation with clinical findings such as presence of goiter and/or Thyroperoxidase (TPO) Antibody may be helpful. For more information please refer to DELGADO 2004; 291: 228-238. us Temi Ma NP CHEMISTRY Final Res ult [facility] [address] [place] [address], * (ABNORMAL) IRON PLUS IRON BINDING CAP (08/05/2024 6:09 AM AIRCRAFT ENGINE INSTALLER) Pathologist [facility] IRON 28(L) 61 - 157 ug/dL 08/05/2024 7:07 AM AIRCRAFT ENGINE INSTALLER [facility] UIBC (UNSATURATED) 274 112 - 347 ug/dL 08/05/2024 7:07 AM AIRCRAFT ENGINE INSTALLER [facility] IRON BINDING CAPACITY 302 250 - 400 ug/dL 08/05/2024 7:07 AM AIRCRAFT ENGINE INSTALLER [facility] IRON,% SATURATION 9(L) 14 - 50 % 08/05/2024 7:07 AM AIRCRAFT ENGINE INSTALLER [facility] Blood BLOOD SPECIMEN / Unknown Butterfly / Unknown 08/05/2024 6:09 AM AIRCRAFT ENGINE INSTALLER 08/05/2024 6:23 AM AIRCRAFT ENGINE INSTALLER Temi Ma LEVER OPERATOR CHEMISTRY Final Res ult Performing Organization Address [facility] Co de Phone Number [facility] [address] [place] [id number], [place] * ANTI HIV 1/2 (08/05/2024 6:09 AM AIRCRAFT ENGINE INSTALLER) HIV-1/HIV-2 SCREEN Non-Reacti ve Non-Reacti ve 08/05/2024 7:48 AM AIRCRAFT ENGINE INSTALLER [facility] Comment:HIV-1 p24 and HIV-1/ HIV-2 Ab Not Detected. Blood BLOOD SPECIMEN / Unknown Butterfly / Unknown 08/05/2024 6:09 AM AIRCRAFT ENGINE INSTALLER 08/05/2024 6:23 AM AIRCRAFT ENGINE INSTALLER Temi Ma LEVER OPERATOR SEND OUTS Final Res ult Performing Organization Address [facility] de Phone Number [facility] [address] [place] [id number], [place] * SCAN-CARDIAC STRIP (08/05/2024 2:22 AM AIRCRAFT ENGINE INSTALLER) us Scanner OTHER Final Result * SCAN CORRESP-EKG RESULTS (08/04/2024 10:27 AM AIRCRAFT ENGINE INSTALLER) Narrative 08/04/2024 10:27 AM AIRCRAFT ENGINE INSTALLER Ordered by an unspecified provider. us Other Clinical Staff OTHER Final Resul t * SCAN CORRESP-IMAGING (08/04/2024 10:27 AM AIRCRAFT ENGINE INSTALLER) Anatomical Region Laterality Modality Other Narrative 08/04/2024 10:27 AM AIRCRAFT ENGINE INSTALLER Ordered by an unspecified provider. us Other Clinical Staff OTHER Final Resul t * SCAN-CARDIAC STRIP (08/04/2024 10:15 AM AIRCRAFT ENGINE INSTALLER) us Scanner OTHER Final Result * (ABNORMAL) HEPATIC FUNCTION PANEL (08/04/2024 6:13 AM AIRCRAFT ENGINE INSTALLER) ALBUMIN 3.4(L) 4.0 - 4.9 g/dL 08/04/2024 12:31 PM AIRCRAFT ENGINE INSTALLER [facility] PROTEIN,TOTAL 6.5 6.0 - 8.0 g/dL 08/04/2024 12:31 PM AIRCRAFT ENGINE INSTALLER [facility] BILIRUBIN,TOTAL 1.1 0.0 - 1.2 mg/dL 08/04/2024 12:31 PM AIRCRAFT ENGINE INSTALLER [facility] BILIRUBIN,DIRECT 0.6(H) 0.0 - 0.2 mg/dL 08/04/2024 12:31 PM AIRCRAFT ENGINE INSTALLER [facility] BILIRUBIN,INDIRE CT 0.5 0.2 - 0.8 mg/dL 08/04/2024 12:31 PM AIRCRAFT ENGINE INSTALLER [facility] ALK PHOSPHATASE 45 40 - 129 IU/L 08/04/2024 12:31 PM AIRCRAFT ENGINE INSTALLER [facility] ALT (SGPT) 17 10 - 50 IU/L 08/04/2024 12:31 PM AIRCRAFT ENGINE INSTALLER [facility] AST (SGOT) 24 10 - 50 IU/L 08/04/2024 12:31 PM AIRCRAFT ENGINE INSTALLER [facility] Blood BLOOD SPECIMEN / Unknown Venipuncture / Unknown 08/04/2024 6:13 AM AIRCRAFT ENGINE INSTALLER 08/04/2024 6:27 AM AIRCRAFT ENGINE INSTALLER us Allie Soriano NP CHEMISTRY Fin al Result [facility] [address] [place] [address], [place] * SCAN-CARDIAC STRIP (08/03/2024 4:20 PM AIRCRAFT ENGINE INSTALLER) us Scanner OTHER Final Result * COVID/FLU/RSV PANEL (08/03/2024 1:30 PM AIRCRAFT ENGINE INSTALLER) Pathologist [facility] COVID 19 ALLBELLAIRE MOLECULAR Negative Negative 08/03/2024 3:47 PM AIRCRAFT ENGINE INSTALLER [facility] Comment:All PCR tests are ram bject to false negative result due to variability in viral load and collection technique. A negative result does not rule out a SARS-CoV-2 infection. Clinical correlation required. INFLUENZA A PCR Negative 4 3:47 PM AIRCRAFT ENGINE INSTALLER [facility] INFLUENZA B PCR Negative 3:47 PM AIRCRAFT ENGINE INSTALLER [facility] Respiratory Syncytial Virus Negative 08/03/2024 3:47 PM AIRCRAFT ENGINE INSTALLER [facility] Swab NASOPHARYNGEAL SWAB / Unknown Non-Blood / Unknown 08/03/2024 1:30 PM AIRCRAFT ENGINE INSTALLER 08/03/2024 1:39 PM AIRCRAFT ENGINE INSTALLER Anel Fitzgerald MD MICROBIOLOGY Final R esult [facility] [address] [place] [address], * (ABNORMAL) COMPREHENSIVE BLOOD GAS MIXED VENOUS (08/03/2024 11:51 AM AIRCRAFT ENGINE INSTALLER) Pathologist [facility] O2 SATURATION, MEASURED, MIXED VENOUS 56(L) 70 - 75 % 08/03/2024 11:51 AM AIRCRAFT ENGINE INSTALLER [facility] PATIENT TEMPERATURE 37.0 Degrees C 08/03/2024 11:51 AM AIRCRAFT ENGINE INSTALLER [facility] COLLECTION SITE PULMONARY ARTERY 08/03/2024 11:51 AM AIRCRAFT ENGINE INSTALLER [facility] HEMOGLOBIN,BLOO D GAS 11.7(L) 13.5 - 17.5 g/dL 08/03/2024 11:51 AM AIRCRAFT ENGINE INSTALLER [facility] Blood BLOOD SPECIMEN / Unknown 08/03/2024 11:51 AM AIRCRAFT ENGINE INSTALLER 08/08/2024 8:54 PM AIRCRAFT ENGINE INSTALLER us Anel Fitzgerald MD CHEMISTRY Final R esult [facility] [address] [place] [address], * CVL CORONARY ANGIOGRAM POSS PCI (08/03/2024 11:23 AM AIRCRAFT ENGINE INSTALLER) Anatomical Region Laterality Modality Other 08/03/2024 11:2 3 AM AIRCRAFT ENGINE INSTALLER Narrative Transcriptions Jose Manuel Amado MD - 08/03/2024 12:33 PM CST [facility] Cardiac Catheterization Report Name: HARRY LUNA Event Date: 08/03/2024 11:23 Excellian ID #: [id number] FAY #: [id number] Patient Class: Inpatient Diagnostic Physician: JOSE MANUEL AMADO [facility] Interventional Physician: JOSE MANUEL AMADO [facility] Referring Physician: Aj Ann Date: 1955 Gender: Male Age: 68 Summary/Conclusions INDICATIONS - NSTEMI - Hx of multiple PCIs with known ISR of RCA DIAGNOSTIC SUMMARY ? 99% stenosis in the Mid RCA in previously placed stents. The first PDAis small with moderate disease. The second PDA and PLB are widely patent ? The LAD has a 50% mid-vessel stenosis at takeoff of moderate diagonalthat also has a 50% ostial stenosis (unchanged from previous. ? The CX is small with a patent proximal stent with mild, diffusedisease ? The RFA was closed with 6F angioseal ? Mild pulmonary HTN LEFT VENTRICULAR FUNCTION ? Left ventricular ejection fraction based on echo is 47%. HEMODYNAMICS ? PW=22; PA=47/30, mean 36; RV=41/13; RA=14; CO = 5.0 L/min (est River) INTERVENTION ? 2.5mm x 12mm Balloon, 3mm x 15mm Balloon, and 4mm x 10mm Balloon to99% ISR of Mid RCA RECOMMENDATIONS: Consider brachytherapy or Drug-Coated Balloon therapy Consent & [place] Protocol The risks, benefits, and alternatives of the procedure were discussed withthe patient and written informed consent was obtained. [place] protocol was followed. TIME OUT conducted just prior tostarting procedure confirmed patient identity, site/side, procedure,patient position, and availability of correct equipment and implants (ifapplicable). Staff Name Title JOSE MANUEL AMADO Diagnostic Methods Engineer Marva Palacios Fellow Yenni Mireles RN Nurse Moris Sy CVT Scrub Abdi Sultana CVT Monitor JOSE MANUEL AMADO Executive Director Procedures ? Ultrasound Guided Vascular Access ? Ultrasound Guided Vascular Access ? Femoral Angio for Possible Closure Device ? Right Heart Catheterization ? Coronary Angiogram ? PTCA [PCI] ? PTCA Cutting Balloon [PCI] ? Femoral Closure Device Diagnostic Findings * Right Coronary Artery ? 99% stenosis in the Mid RCA. The lesion has a MATIAS flow of 3. Lesion Information Lesion # Vessel Segment Lesion Length Lesion Details 1 Mid RCA Left Ventriculography/Aortography Ejection Fraction: 47% (Method: Echo) Hemodynamics State: Baseline Pressures (mmHg) Site Systolic Diastolic End Diastolic A Wave V Wave Mean AO 135 76 101 PCW 24 24 22 PA 47 30 36 RV 41 11 13 RA 15 14 14 Oximetry PA: 55.6 % AO: 94 % Cardiac Output Estimated River Output: 4.99 l/min Estimated River Index: 2.12 l/min/m2 Resistances PVR: [id number] PVR Index: 528.63 SVR: [id number] SVR Index: 3285.03 PVR/SVR: 0.16 Blood Flow Pulmonary (QP): 4.99 l/min Systemic (QS): 4.99 l/min Interventional Results * Right Coronary Artery ? Intervention to the Mid RCA 99% lesion using a 2.5mm x 12mm Balloon,3mm x 15mm Balloon, and a 4mm x 10mm Balloon. The final MATIAS flow was 3. Interventional Devices Lesion # Vessel Segment Type Name Max Pressure 1 Mid RCA Balloon BLLN EUPHORA NC RX 2.5MM X 12MM 1 Mid RCA Balloon BLLN AngioSculpt Saud 3.0x15mm 1 Mid RCA Balloon BLLN [place] CB MR [id number] Procedure Details Estimated Blood Loss: < 30 ml Specimen Collected: None Level of Sedation Achieved: Mild Procedure Start: 11:23 Procedure End: 12:23 Procedure Time: 60 min Fluoroscopy Time: 19.2 min Cumulative Air Kerma: 1372 mGy DAP: 33008 uGy/M2 Contrast: Omnipaque (low-osmolar), 85 ml Physiologic Data Hemoglobin: 11.3 g/dl Weight: 109.5 kg BSA: 2.35 m2 Vascular Access Time Access Sheath Size 11:29 Right Femoral Artery, sheath inserted 11:29 Right Femoral Vein, sheath inserted. Complications ? No Complications Medications Ordered and Administered Start Time Stop Time Medication Dose Units Route Ordered By Given By 11:10 O2 2 l per min Nasal cannula Jose Manuel Amado Carole RN 11:24 1% Lidocaine 20 ml Subcut Jose Manuel Amado Jaskanwal 11:27 Fentanyl 50 mcg IV Jose Manuel Amado Carole RN 11:27 Versed 1 mg IV Jose Manuel Amado Carole RN 12:00 Versed 0.5 mg IV Jose Manuel Amado Carole RN 12:00 Heparin 8000 units IV Jose Manuel Amado Carole RN 12:00 Fentanyl 25 mcg IV Jose Manuel Amado Carole RN 12:17 Heparin 3000 units IV Jose Manuel Amado Carole RN 12:20 Fentanyl 25 mcg IV Jose Manuel Amado Carole RN 12:22 Versed 0.5 mg IV Jose Manuel Amado Carole RN I personally monitored the patient?s conscious sedation during theprocedure. Conscious sedation starts with the first sedation medication dose ofFentanyl or Versed and ends when the procedure is completed, the patientis stable for recovery status, and the physician or other qualified healthcare professional providing the sedation ends personal [id number] time with the patient. The medications listed above were verbally ordered by me and read back tome as documented above. Refer to the procedure log report for additional case details. electronically signed on 08/03/2024 12:33:59 PM with status of Final Jose Manuel Amado MD [facility] [address] [place] [address] (p) [phone](f) us Provider Referring CV IMAGING Edited Result - Final * (ABNORMAL) APTT (08/03/2024 7:42 AM AIRCRAFT ENGINE INSTALLER) Only the most recent of3 resultswithin the time period is included. APTT 47(H) 25 - 36 sec 08/03/2024 8:10 AM AIRCRAFT ENGINE INSTALLER [facility] Blood BLOOD SPECIMEN / Unknown Butterfly / Unknown 08/03/2024 7:42 AM AIRCRAFT ENGINE INSTALLER 08/03/2024 7:47 AM AIRCRAFT ENGINE INSTALLER Narrative [facility] - 08/03/2024 8:10 AM AIRCRAFT ENGINE INSTALLER Therapeutic Range: 59-89 seconds Leopoldo Velasco MD HEMATOLOGY Final Result [facility] [address] [place] [address], * (ABNORMAL) LIPID PANEL (08/02/2024 8:07 PM AIRCRAFT ENGINE INSTALLER) CHOLESTEROL,TOTAL 95(L) 100 - 199 mg/dL 08/03/2024 3:14 PM AIRCRAFT ENGINE INSTALLER [facility] Comment: Cholesterol, Total Reference Ranges Desirable <200 mg/dL Borderline 200-239 mg/dL High >=240 mg/dL TRIGLYCERIDES 95 <150 mg/dL 08/03/2024 3:14 PM AIRCRAFT ENGINE INSTALLER [facility] HDL CHOLESTEROL 44 >40 mg/dL 3:14 PM AIRCRAFT ENGINE INSTALLER [facility] NON-HDL CHOLESTEROL 51 <145 mg/dl 08/03/2024 3:14 PM AIRCRAFT ENGINE INSTALLER [facility] CHOL/HDL RATIO 2.16 <4.50 08/03/2024 3:14 PM AIRCRAFT ENGINE INSTALLER [facility] LDL CHOLESTEROL 32 <=130 mg/dL 08/03/2024 3:14 PM AIRCRAFT ENGINE INSTALLER [facility] VLDL CHOLESTEROL 19 <=30 mg/dL 08/03/20 3:14 PM AIRCRAFT ENGINE INSTALLER [facility] Blood BLOOD SPECIMEN / Unknown Venipuncture / Unknown 08/02/2024 8:07 PM AIRCRAFT ENGINE INSTALLER 08/02/2024 8:13 PM AIRCRAFT ENGINE INSTALLER us Allie Soriano NP CHEMISTRY Fin al Result Performing Organization Address [facility]/ZIP Co de Phone Number [facility] [address] [place] [address], * SCAN-CARDIAC STRIP (08/02/2024 5:35 PM AIRCRAFT ENGINE INSTALLER) us Scanner OTHER Final Result * BUN (08/02/2024 2:27 PM AIRCRAFT ENGINE INSTALLER) BUN 19 8 - 23 mg/dL 08/02/2024 3:01 PM AIRCRAFT ENGINE INSTALLER [facility] Blood BLOOD SPECIMEN / Unknown Venipuncture / Unknown 08/02/2024 2:27 PM AIRCRAFT ENGINE INSTALLER 08/02/2024 2:34 PM AIRCRAFT ENGINE INSTALLER Luis Manuel Leary MD CHEMISTRY Final R esult Performing Organization Address [facility] Co de Phone Number [facility] [address] [place] [address], * PROTIME-INR (08/02/2024 2:27 PM AIRCRAFT ENGINE INSTALLER) INR 1.1 <1.3 08/02/2024 2:46 PM AIRCRAFT ENGINE INSTALLER [facility] PROTIME 12.2 10.6 - 12.4 sec 08/02/2024 2:46 PM AIRCRAFT ENGINE INSTALLER [facility] Blood BLOOD SPECIMEN / Unknown Venipuncture / Unknown 08/02/2024 2:27 PM AIRCRAFT ENGINE INSTALLER 08/02/2024 2:34 PM AIRCRAFT ENGINE INSTALLER Narrative [facility] - 08/02/2024 2:46 PM AIRCRAFT ENGINE INSTALLER Therapeutic Range 2.0-3.0 for most anticoagulated patients 2.5-3.5 or 4.0 for high risk patients The INR is only used for patients on stable oral anticoagulant therapy. It makes no significant contribution to the diagnosis or treatment of patients whose Protime is prolonged for other reasons. INR results are increased when heparin levels exceed 1.0 U/mL, which corresponds to an aPTT >125 seconds if the patient is on UFH. us Luis Manuel Leary MD HEMATOLOGY Final R esult [facility] [address] [place] [address], * ANTI HCV (04/16/2017 9:14 AM CDT) HEPATITIS C ANTIBODY Non-Reacti ve Non-Reacti ve 04/16/2017 3:42 PM CDT [facility] Blood BLOOD SPECIMEN / Unknown Venipuncture / Unknown 04/16/2017 9:14 AM CDT 04/16/2017 9:17 AM CDT Narrative [facility] - 04/16/2017 3:42 PM CDT Antibodies to HCV not detected; does not exclude the possibility of exposure to HCV. us Jakub Soliz MD SEND OUTS Final Result Performing Organization Address City/[facility]/ZIP Co de Phone Number [facility] [address] [place] [address], from Last 3 Months or Most Recently Relevant to Health Maintenance [place] [address] [address] MEDICARE PART A HB ONLY [facility] PPS CBCS NON [place] [address] [place] Advance Directives * Full Code (Latest Code Status on File) Date Activated Date Inactivated Comments 08/02/2024 2:02 PM 08/15/2024 4:03 PM Question Answer Comments Code Status Discussion: Reviewed Preferences * Full Code Date Activated Date Inactivated Comments 11/11/2023 6:45 [...] Code Status Discussion: Reviewed Preferences Care Teams Manager User Interface Relationship Specialty Start Date End Date Lakesha Khan MD [address] [place] [address] PCP - General Family Practice 04/30/22 [facility] [address] [address] Cardiology - CHF 06/28/23 [facility] [address] [place] [address] 08/15/24
--- OUTSIDE RECORDS SUMMARY | 2024-10-24 19:06 | XMS_ITS | Continuity of Care Document ---
Author Organization [facility] Address [address] [place] [address] Phone Care Team Providers Care Bus Assistant Name Role Phone Antoinette CHOU, PhD, Shahriar Unavailable Unavai lable Allergies, Adverse Reactions, Alerts Substance Reaction Status Criticality OXYCODONE HCL Confusional state Active No Inform ation Medications Medication Instructions Dosage Effective Dates (start - stop) Status Comments FERROUS SULFATE (unknown strength) Not Available - Active JARDIANCE (unknown strength) Not Available - Active ENTRESTO (unknown strength) Not Available - Active METOPROLOL SUCCINATE (unknown strength) Not Available - Active METFORMIN HCL (unknown strength) Not Available - Active LANTUS (unknown strength) Not Available - Active GABAPENTIN (unknown strength) Not Available - Active HUMALOG KWIKPEN U-100 (unknown strength) Not Available - Active ATORVASTATIN CALCIUM (unknown strength) Not Available - Active OXYCODONE HCL (unknown strength) Not Available - Active Procedures Procedure Date Pre Op OFFICE/OUTPATIENT VISIT EST Phone Office/Outpatient Visit,Est, Mod 2022 Office/Outpatient Visit,New, Mod 2022 Advance Directives Directive Yes / No Effective Date File Name No Information Encounters Encounter Description Practice Location Reason(s) For Visit Diagnoses Date Provider Providers Copied on Encounter Pre Op OFFICE/OUTPAT IENT VISIT EST Phone [facility], [address], [place], [id number], [place] tel:[phone] [facility] No Information Antoinette Bess. [facility], [address], [place], [address], [place]. tel:[phone] Referring Provider: [facility] [address], [place], [address]. tel:[phone] Office/Outpat ient Visit,Est, Mod [facility], [address], [place], [place], [id number], [place] tel:[phone] [facility] Spinal stenosis, lumbar region with neurogenic claudication Antoinette Bess. [facility], [address], [place], [address], [place]. tel:[phone] Referring Provider: Lakesha Khan [employer] [facility] [address], [place], [address]. tel:[phone] Office/Outpat ient Visit,New, Mod [facility], [address], [place], [place], [id number], [place] tel:[phone] [facility] Spinal stenosis, lumbar region with neurogenic claudication Antoinette Bess. [facility], [address], [place], [address], [place]. tel:[phone] Referring Provider: Lakesha Khan [employer] [facility] [address] [facility], [place], [address]. tel:[phone] Family History Family Member Type Diagnosis Age At Onset No Information Payers Payer name Insurance type Covered libertarian ID Jackie ahumada(s) [employer] Medicare [facility] CI [id number] Social History Type Description Quantity Date Captured Comments Sex Male Smoking Status No Information Chief Complaint And Reason For Visit No Information Reason For Referral Reason For Referral No Information History Of Present Illness Encounter Date Complaint History Of Prese nt Illness No Information Functional Status Date Functional Assessmen t No Information Instructions Date Instruction Additional Infor mation No Information Assessments Type Assessment Date No Information Patient Care Teams Name Effective Dates (start - stop) Status Members No Information
--- OUTSIDE RECORDS SUMMARY | 2024-10-24 19:07 | XMS_ITS | Clinical Summary ---
Author Organization [facility] Address [address] , [address] [place] [address] Phone Care Team Providers Care Final Expense Agent Name Role Phone Records, Outside Unavailable Unavailable Conditions or Problems Problem Name Problem Code Onset Date Status Entry Date Provider Comment Standard Description Annotate Ulnar neuropathy, bilateral 095913926 (SNOMED CT) Active Huber Andersen MD Ulnar neuropathy Other lesions of median nerve, bilateral upper limbs 659781440 (SNOMED CT) Active Huber Andersen MD Lesion of median nerve Medications No information available. Medications Administered No information available. Allergies, Adverse Reactions, Alerts No information available. Results Date Name Value Unit Range Flag Description Internal Other: Authorizatio n - OBS [email or web address] Yes Authoriza tion: Release of Information - Authorize [facility] - Payment and Healthcare Operations ROIAUTHOTHER Yes Authoriz ation: Release of Information - Authorize Others/Insurance - Payment and Healthcare Operations HIECONSENT Yes Consent To Release information to the Health Information Exchange (HIE) [email or web address] Yes Authorizat ion: Authorization for [facility] to leave messages, voicemail, send text messages, send emails AUTHRELHCARE Yes Authoriz ation: Release/Retrieval of Information to/from Healthcare Facilities, Pharmacy Benefit Payers and Providers AUTHPRIVPRAC Yes Authoriz ation: Notice of privacy practices AUTHBENEFIT Yes Authoriza tion: Assignment of Benefits and Payment Agreement Internal Other: Verbal Autho rization/Emergency Contact - OBS VERBAL_EMER DONE Verbal au thorization and emergency contact Plan of Care Type Date Detail Appointment 12:00 PM Huber Andersen MD , [address], [address], [place], [address], Procedures Code Procedure Name Date Entry Date CPT-88965 Nerve Conduction 13 or more studies 05/09 CPT-42844 EMG with NCS (5+ muscles) - 2 limbs 05/09 Vital Signs No information available. Immunizations No information available. Advance Directives No information available.
[2024-10-24 19:10] VITALS: BP 121/74; PULSE 93; RESP 18; TEMP 36.7; O2SAT 95; BMI 30.4
--- NOTE | 2024-10-24 19:18 | ED_ITS ---
HPI - General Adult General Chief complaint: Chest Pain Stated complaint: Potential heart attack Time Seen by Provider: 10/24/24 19:09 History of Present Illness HPI narrative: Chest pain rate 8/10. Took 3 nitro at home. Chest pain started 183. Pt was sitting watching TV when the chest pain started. Pt took one baby aspirin this morning. 68-year-old man presenting to the emergency department with concern of chest pain. This occurred while at rest watching television. He notes the pain was 10 10. He took 3 nitro in sequence as directed. Pain is little bit less now. Did have usual baby aspirin this morning. Hurts a little bit when he breathes. He admits to being rather stressed about this. Was in usual state of health prior to this onset of pain. No trauma noted. Is feeling nauseated as well. Does have a history of diabetes and cardiovascular disease with a history of non-STEMI and cardiac stenting. August 2024 had 3 stents placed. He is apparently anticipating follow-up with cardiology for a pacer. Sometimes his heart is too fast sometimes is too slow he says. Has had persistent right clavicular pain as well he says. Related Data Home Medications ?Medication ?Instructions ?Recorded ?Confirmed atorvastatin 40 mg tablet 40 mg PO HS 01/08/23 10/12/24 gabapentin 300 mg capsule 1,200 mg PO BID 01/08/23 10/12/24 insulin glargine 100 unit/mL (3 20 unit subcut HS 01/08/23 10/12/24 mL) subcutaneous pen (Lantus Solostar U-100 Insulin) insulin lispro 100 unit/mL 6 - 10 unit subcut TIDWM 01/08/23 10/12/24 subcutaneous pen metformin 500 mg tablet,extended 1,000 mg PO BIDWM 01/08/23 10/12/24 release 24 hr clopidogrel 75 mg tablet 75 mg PO DAILY 11/11/23 10/12/24 duloxetine 30 mg capsule,delayed 30 mg PO DAILY 04/20/24 10/12/24 release insulin lispro 100 unit/mL 1 sliding scale dose subcut 05/18/24 10/12/24 subcutaneous cartridge (Humalog USEASDIRECTD U-100 Insulin) acetaminophen 500 mg tablet 500 mg PO TID PRN 07/14/24 10/12/24 aspirin 81 mg tablet,delayed 81 mg PO DAILY 07/14/24 10/12/24 release (Adult Low Dose Aspirin) empagliflozin 10 mg tablet 10 mg PO DAILY 07/14/24 10/12/24 (Jardiance) multivitamin (Daily Multi-Vitamin 1 tab PO DAILY 07/14/24 10/12/24 tablet) nitroglycerin 0.4 mg sublingual 0.4 mg sublingual Q5-15M PRN 07/14/24 10/12/24 tablet furosemide 20 mg tablet (Lasix) 20 mg PO QAM 08/31/24 10/12/24 tramadol 50 mg tablet 100 mg PO BID PRN 10/12/24 10/12/24 Allergies Allergy/AdvReac Type Severity Reaction Status Date / Time oxycodone (From Percocet) Allergy Mild Verified 10/12/24 15:47 propoxyphene (From Allergy Mild Verified 10/12/24 15:47 Darvocet-N) bupropion (From Wellbutrin) Allergy Verified 10/12/24 15:47 Review of Systems Status of ROS: Reports: 6 or more systems reviewed and unremarkable except as noted in History and below PFSH FOR[facility]LY [facility], 1928–1983 Medical History Non-ST elevated myocardial infarction ?I21.4 - Non-ST elevation (NSTEMI) myocardial infarction (ICD-10) Surgical History H/O heart artery stent ?Z95.5 - Presence of coronary angioplasty implant and graft (ICD-10) Amputated toe of left foot ?S98.132A - Complete traumatic amputation of one left lesser toe, initial encounter (ICD-10) Cervical vertebral fusion ?M43.22 - Fusion of spine, cervical region (ICD-10) S/P right rotator cuff repair ?Z98.890 - Other specified postprocedural states (ICD-10) History of cholecystectomy ?Z90.49 - Acquired absence of other specified parts of digestive tract (ICD- 10) History of appendectomy ?Z90.49 - Acquired absence of other specified parts of digestive tract (ICD- 10) Gastric bypass status for obesity ?Z98.84 - Bariatric surgery status (ICD-10) Social History Smoking Status: Never smoker Do you use any of these nicotine containing products: None Second hand tobacco smoke exposure: No How often do you have a drink containing alcohol: 2-3 times a week How many standard drinks containing alcohol do you have on a typical day: 1 or 2 How often do you have six or more drinks on one occasion: Never AUDIT-C Alcohol total score: 3 Non-prescribed substance use: denies use service: No Exam Narrative: Exam Narrative: Pleasant. Appears nervous. Intermittently with labored breathing. Is not tachypneic otherwise. Lungs are clear. Heart in mildly elevated rate in a regular rhythm. Abdomen is overweight soft nontender. He has an emesis bag at hand. Extremities with trace pretibial edema. Well-perfused peripherally. Area of pain as demonstrated in the right upper chest is reproducible to palpation. Swelling noted in the right clavicle and tenderness generally in this area. Const: Vital Signs, click to edit/add: Vital Signs - 24 hr 10/24/24 19:10 Temperature 98.0 F Pulse Rate [Left P ulse Oximeter] 93 Respiratory Rate 18 Blood Pressure [Ri ght Upper Arm] 121/74 Pulse Oximetry 95 Oxygen Delivery Me thod Room Air Documenting provider has reviewed patient's vital signs: yes Course Vital Signs Vital signs: Initial Vital Signs Temperature 98.0 F 10/24/24 19:10 Temperature Source Temporal Artery Scan 10/24/24 19:10 Pulse Rate 93 10/24/24 19:10 Pulse Rhythm Regular 10/24/24 19:10 Respiratory Rate 18 10/24/24 19:10 Blood Pressure 121/74 10/24/24 19:10 Blood Pressure Mean 89 10/24/24 19:10 Blood Pressure Position Sitting 10/24/24 19:10 Pulse Oximetry 95 10/24/24 19:10 Oxygen Delivery Method Room Air 10/24/24 19:10 Vital Signs Temperature 98.0 F 10/24/24 19:10 Pulse Rate 93 10/24/24 19:10 Respiratory Rate 18 10/24/24 19:10 Blood Pressure 121/74 10/24/24 19:10 Pulse Oximetry 95 10/24/24 19:10 Oxygen Delivery Method Room Air 10/24/24 19:10 Temperature 98.0 F 10/24/24 19:10 Pulse Rate 93 10/24/24 19:10 Respiratory Rate 18 10/24/24 19:10 Blood Pressure 121/74 10/24/24 19:10 Pulse Oximetry 95 10/24/24 19:10 Oxygen Delivery Method Room Air 10/24/24 19:10 Medications Administered Medications: Discontinued Medications Generic Name Dose Route Start Last Admin Trade Name Chao PRN Reason Stop Dose Admin Ketorolac Tromethamine 30 mg 10/24/24 20:55 10/24/24 21:09 Ketorolac 30 Mg/Ml Inj IVP 10/24/24 20:56 30 mg ONCE ONE Administration Lorazepam 1 mg 10/24/24 19:37 10/24/24 21:00 Lorazepam 2 Mg/Ml Inj IVP 10/24/24 19:38 1 mg ONCE ONE Administration Medical Decision Making MDM Narrative Medical decision making narrative: Given history will certainly evaluate for ischemic cardiovascular disease. Evaluate for pneumothorax or pulmonary embolus as well. Dissection? Reproducible chest pain. Initial EKG independently reviewed by me shows a sinus rhythm with first-degree AV block. Prominent P-waves. Right bundle-branch block. This looks similar to July of 2024. Rate of 97. Spouse comes out asking for help as he seems to have passed out. No events on monitor. When staff went in to talk with him he promptly startled awake. With apparent increase in anxiety though was given mg of Ativan. Chest x-ray independently reviewed by me looks to be without acute abnormality. No infiltrate, no pneumothorax. I do not appreciate clavicular abnormality. Radiology over-read below INDICATION: Right-sided chest pain. TECHNIQUE: Chest 1 view. COMPARISON: 09/21/2024. FINDINGS: Cardiovascular and mediastinum: Stable cardiomediastinal silhouette. Lungs and pleural spaces: No consolidation. No pleural effusions or pneumothorax. Bones and soft tissues: Old left rib fractures. Healing right rib fractures. Known healing right scapular fracture not well visualized. IMPRESSION: No acute pulmonary process. Dictated by Jim Mai MD @ 10/24/2024 9:06:05 PM On reassessment is resting in apparent comfort noting ?8/10 pain?. And that is moved to the left side of his chest. No pain to palpation at this point. Labs so far reassuring. Repeating troponin at this point. Order for some Toradol. On reassessment pain is improved further. Does noting that he is quite tired. Repeat troponin is normal and repeat EKG is unchanged Perhaps this chest wall pain with old/healing fractures as noted in radiology over-read amplified with anxiety. No events on monitor. Evaluation I think is overall reassuring. Things look good here today. I am reassured. Your blood sugar otherwise was elevated at 347 Please follow-up with your leather tooler as scheduled. Return for marked increase in persistent pain accompanied by shortness of breath lightheadedness or nausea. Medical Records Medical records reviewed: Yes I reviewed the patient's medical records Lab Data Lab results reviewed: Yes I reviewed the patient's lab results Labs: Lab Results 10/24/24 10/24/24 Range/Units 19:18 20:42 WBC 5.05 (4.50-11.00) K/uL RBC 4.74 (4.30-5.90) m/uL Hgb 13.2 L (13.5-17.5) gm/dL Hct 41.2 (37.0-53.0) % MCV 87 (80-100) fL MCH 28 (26-34) pg MCHC 32 (32-36) gm/dL RDW Coeff of Lou 14.3 (11.5-15.5) % Plt Count 124 L (140-440) K/uL Neut % (Auto) 51.9 (42.0-72.0) % Lymph % (Auto) 36.4 (20-44) % [place] % (Auto) 7.5 (0.0-11.0) % Eos % (Auto) 3.8 (0.0-7.0) % Baso % (Auto) 0.4 (0.0-3.0) % Neut # (Auto) 2.62 (1.7-7.0) K/uL Lymph # (Auto) 1.84 (0.90-2.90) K/uL [place] # (Auto) 0.40 (0.00-0.90) K/UL Eos # (Auto) 0.19 (0.00-0.50) K/uL Baso # (Auto) 0.02 (0.00-0.30) K/uL Abs Immat Gran (auto) 0.00 (0.00-0.30) K/uL Imm/Tot Granulo (auto) 0.0 % D-Dimer Quant (PE/DVT) < 0.22 (0.00-0.50) ug/ml Sodium 136 (135-149) mmol/L Potassium 4.4 (3.6-5.1) mmol/L Chloride 105 (96-114) mmol/L Carbon Dioxide 20 (20-32) mmol/L Anion Gap 11 (7-15) mEq/L BUN 25 (7-30) mg/dL Creatinine 1.2 (0.5-1.5) mg/dL Estimated Creat Clear 69.45 Estimated GFR 66 ml/min Glucose 347 H (60-115) mg/dL Calcium 8.7 (8.4-10.6) mg/dL Total Bilirubin 0.6 (0.1-1.5) mg/dL Direct Bilirubin 0.3 (0.0-0.5) mg/dL AST 28 (12-35) U/L ALT 34 (4-50) U/L Alkaline Phosphatase 44 (40-150) U/L Troponin I < 0.01 L (0.01-0.04) ng/mL C-Reactive Protein < 0.5 L (0.5-1.0) mg/dL Total Protein 6.7 (6.0-8.3) g/dL Albumin 4.1 (3.3-5.0) g/dL POC Troponin I 0.02 0.01 (0.01-0.04) ng/ml Discharge Plan Discharge Clinical Impression: Atypical chest pain, Anxiety Patient Disposition: Home w/ Parent or Adult Condition: Improved Additional Instructions: Things look good here today. I am reassured. Your blood sugar otherwise was elevated at 347 Please follow-up with your leather tooler as scheduled. Return for marked increase in persistent pain accompanied by shortness of breath lightheadedness or nausea. Prescriptions: No Action tramadol 50 mg tablet 100 mg PO BID PRN duloxetine 30 mg capsule,delayed release(DR/EC) 30 mg PO DAILY Humalog U-100 Insulin 100 unit/mL cartridge 1 sliding scale dose subcut USEASDIRECTD furosemide [Lasix] 20 mg tablet 20 mg PO QAM atorvastatin 40 mg tablet 40 mg PO HS gabapentin 300 mg capsule 1,200 mg PO BID metformin 500 mg tablet extended release 24 hr 1,000 mg PO BIDWM insulin lispro 100 unit/mL insulin pen 6 - 10 unit subcut TIDWM insulin glargine [Lantus Solostar U-100 Insulin] 100 unit/mL (3 mL) insulin pen 20 unit subcut HS clopidogrel 75 mg tablet 75 mg PO DAILY acetaminophen 500 mg tablet 500 mg PO TID PRN aspirin [Adult Low Dose Aspirin] 81 mg tablet,delayed release (DR/EC) 81 mg PO DAILY Jardiance 10 mg tablet 10 mg PO DAILY multivitamin [Daily Multi-Vitamin] Tablet 1 tab PO DAILY nitroglycerin 0.4 mg tablet, sublingual 0.4 mg sublingual Q5-15M PRN Rx Instructions: do not exceed 3 doses per episode Follow Up/Referrals: Lakesha Khan MD [Primary Care Provider] - Stand Alone Forms: [employer] Info Instructions
--- NOTE | 2024-10-24 19:33 | ED.NURSE ---
Pt's ran screaming out of the room, help me, help me, he has pain. Pt appeared to have had a vasovagel event from left scapular pain, perceived chest pain. This nurse asked the pt's kindly to please press the call light next time an event like this happens, reassured pt and that pt is on the monitor. Pt's started to yell and this nurse and states, no one came. This nurse reassured her as well that two nurses instantly appeared in room and pain medication was delivered. No further questions for this nurse from either pt or .
--- NOTE | 2024-10-24 19:34 | CRLHL7_ITS ---
For Patients: As a result of the Cures Act, medical imaging exams and procedure reports are released immediately into your electronic medical record. You may view this report before your referring provider. If you have questions, please contact your health care provider. INDICATION: Right-sided chest pain. TECHNIQUE: Chest 1 view. COMPARISON: 09/21/2024. FINDINGS: Cardiovascular and mediastinum: Stable cardiomediastinal silhouette. Lungs and pleural spaces: No consolidation. No pleural effusions or pneumothorax. Bones and soft tissues: Old left rib fractures. Healing right rib fractures. Known healing right scapular fracture not well visualized. IMPRESSION: No acute pulmonary process. Dictated by Jim Mai MD @ 10/24/2024 9:06:05 PM (Electronically Signed)
[2024-10-24 19:44] LABS: Basophils Absolute Auto 0.02 K/uL (0.00-0.30); Basophils Percent Auto 0.4 % (0.0-3.0); Eosinophils Absolute Auto 0.19 K/uL (0.00-0.50); Eosinophils Percent Auto 3.8 % (0.0-7.0); Hematocrit 41.2 % (37.0-53.0); Hemoglobin* 13.2 gm/dL (13.5-17.5); Lymphocytes Absolute Auto 1.84 K/uL (0.90-2.90); Lymphocytes Percent Auto 36.4 % (20-44); Mean Corpuscular HGB Conc 32 gm/dL (32-36); Mean Corpuscular Hemoglobin 28 pg (26-34); Mean Corpuscular Volume 87 fL (80-100); Monocytes Percent Auto 7.5 % (0.0-11.0); Neutrophils Absolute Auto 2.62 K/uL (1.7-7.0); Neutrophils Percent Auto 51.9 % (42.0-72.0); Platelet Count* 124 K/uL (140-440); RDW Coefficient of Variation % 14.3 % (11.5-15.5); Red Blood Count 4.74 m/uL (4.30-5.90); White Blood Count* 5.05 K/uL (4.50-11.00)
[2024-10-24 19:57] LABS: Slide Review Reflex No; Troponin, Point-of-Care* 0.02 ng/ml (0.01-0.04)
[2024-10-24 20:05] LABS: Albumin* 4.1 g/dL (3.3-5.0); Chloride* 105 mmol/L (96-114); Potassium* 4.4 mmol/L (3.6-5.1); Sodium* 136 mmol/L (135-149)
[2024-10-24 20:07] LABS: Blood Urea Nitrogen* 25 mg/dL (7-30); Creatinine* 1.2 mg/dL (0.5-1.5); Est. Creatinine Clearance* 69.45; Estimated Glomerular Filt Rate 66 ml/min
[2024-10-24 20:08] LABS: Alanine Aminotransferase* 34 U/L (4-50); Alkaline Phosphatase* 44 U/L (40-150); Anion Gap 11 mEq/L (7-15); Aspartate Amino Transferase* 28 U/L (12-35); Bilirubin Direct* 0.3 mg/dL (0.0-0.5); Bilirubin Total* 0.6 mg/dL (0.1-1.5); Calcium* 8.7 mg/dL (8.4-10.6); Carbon Dioxide* 20 mmol/L (20-32); Glucose* 347 mg/dL (60-115); Total Protein* 6.7 g/dL (6.0-8.3)
[2024-10-24 20:12] LABS: D Dimer Quantitative* < 0.22 ug/ml (0.00-0.50)
[2024-10-24 20:15] LABS: C Reactive Protein* < 0.5 mg/dL (0.5-1.0)
[2024-10-24 20:21] LABS: Troponin I* < 0.01 ng/mL (0.01-0.04)
[2024-10-24] MEDS: LORazepam 2 MG/ML inj 1 MG IVP (21:00)
[2024-10-24 21:05] LABS: Troponin, Point-of-Care* 0.01 ng/ml (0.01-0.04)
[2024-10-24] MEDS: KETOROLAC 30 MG/ML inj IVP (21:09)
--- OUTSIDE RECORDS SUMMARY | 2024-10-24 21:14 | XMS_ITS | Continuity of Care Document ---
Author Organization [employer] [facility] Address [address] [address] [place] [address] Phone Care Team Providers Care Laborer Pipeline Name Role Phone Unavailable Unavailable Unavailable Allergies, [...] Diagnoses Date Provider Providers Copied on Encounter [facility], [address] [address], [place], [id number], [place] tel:[phone] [facility] Podiatry No Information No Information [facility], [address] [address], [place], [id number], tel:[phone] [facility] 1st Care f/u gr toe procedure (chief complaint) No Information No Information Offic/outpt E m [facility], [facility], [address] [address], [place], [place], [id number], [place] tel:[phone] [facility] 1st Care Left great toe drainage/re [...]
--- OUTSIDE RECORDS SUMMARY | 2024-10-24 21:14 | XMS_ITS | Continuity of Care Document ---
Author Organization [facility] Address [address] [place] [address] Phone Care Team Providers Care Water Resources Engineer Name Role Phone Antoinette CHOU, PhD, Shahriar [...] SUCCINATE (unknown strength) Not Available - Active OXYCODONE HCL (unknown strength) Not Available - Active ATORVASTATIN CALCIUM (unknown strength) Not Available - Active HUMALOG KWIKPEN U-100 (unknown strength) Not Available - Active GABAPENTIN (unknown strength) Not Available - Active LANTUS (unknown strength) Not Available - Active METFORMIN [...] VISIT EST Phone [facility], [address], [place], [id number], [place] tel:[phone] [facility] No Information Antoinette Bess. [facility], [address], [place], [address], [place]. tel:[phone] Referring Provider: Manuel [employer] [facility] [address], [place], [address]. tel:[phone] Office/Outpat ient Visit,Est, Mod [facility], [address], [place], [id number], [place] tel:[phone] [facility] Spinal stenosis, lumbar region with neurogenic claudication Antoinette Bess. [facility], [address], [place], [address], [place]. tel:[phone] Referring Provider: Lakesha Khan [employer] [facility] [address], [place], [address]. tel:[phone] Office/Outpat ient Visit,New, Mod [facility], [address], [place], [id number], [place] tel:[phone] [facility] Spinal stenosis, lumbar region with neurogenic claudication Antoinette Bess. [facility], [address], [place], [address], [place]. tel:[phone] Referring Provider: Lakesha Khan [employer] [facility] [place], [address]. tel:[phone] Family History Family Member Type Diagnosis Age At Onset No Information Payers Payer name Insurance type Covered libertarian ID Jackie ahumada(s) [employer] Medicare [facility] CI [id number] Social History Type Description Quantity Date [...]
--- OUTSIDE RECORDS SUMMARY | 2024-10-24 21:14 | XMS_ITS | Clinical Summary ---
Author Organization [employer] [facility] Address [address] [place] [address] Care Team Providers Care Broadcast Operations Director Name Role Phone Lakesha Khan MD Primary Care Provider Clinic, [facility] Unavailable [phone] [facility] [place] Unavailable [phone] Allergies Active Allergy Reactions Criticality Noted Date [...] in 24 hrs. 0 022 Active Insulin [place], Disposable, (Pen Needle) 32 gauge x /32Indications:T [...] 25 Tablet 1 07/29/20 23 2:49 PM SOD FARMER 023 Active FreeStyle Jordana 2 ReaderIndications: Type 2 diabetes mellitus with diabetic polyneuropathy, with long-term current use of insulin (HC) To be used to read blood sugars per audiologist's directions. 1 Each 024 Active empagliflozin (JARDIANCE) [...] atherosclerosis due to calcified coronary lesion of [place] artery,Acute HFrEF (heart failure with reduced ejection fraction) () Take 1 Tablet (25 mg) by mouth once daily. 30 Tablet 1 08/14/19 25 5:50 PM SOD FARMER 025 Active sennosides (SENNA) 8.6 mg tabletIndications: [...] 15 Tablet 1 08/14/19 25 5:50 PM SOD FARMER 025 2024 Discontinued traMADoL (ULTRAM) 50 mg [...] ASCVD (arteriosclerotic cardiovascular disease) 05/27/2023 Overview (07/31/2023): [id number] MYOCARDIAL INFARCTION on 07/26/23. He is to stay on Plavix and aspirin for at least a year. Coronary atherosclerosis due to calcified coronary lesion of [place] artery 05/27/2023 Sleep apnea 11/29/2022 11/29/2022 Overview [...] Team Description 10/23/2024 Travel 10/16/2024 9:30 AM SOD FARMER Office Visit [facility] [place] [address] [phone] Laura Rosario MD Follow Up (follow up to testing/echo and labs prior/device check 10/12 /PT states feeling good/No cardiac symptoms today /Discuss testing/occ dizziness ) 10/16/2024 8:24 AM SOD FARMER - 10/16/2024 11:59 PM SOD FARMER Hospital Encounter [place] [address] [address] [address] Ramona Gonzalez, NOEMI Ischemic cardiomyopathy 10/16/2024 8:16 AM SOD FARMER - 10/16/2024 8:23 AM SOD FARMER Hospital Encounter [place] [address] [address] [id number] Ischemic cardiomyopathy; Congestive heart failure, unspecified HF chronicity, unspecified heart failure type (HC); Heart failure, unspecified HF chronicity, unspecified heart failure type (HC) 10/16/2024 Travel 10/13/2024 Refill [facility] [address] [facility] [place] [address] Lakesha Khan MD Refill Request (Clopidogrel) 10/11/2024 Travel 10/07/2024 Travel 10/04/2024 Refill [facility] [address] [place] [address] Lakesha Khan MD Refill Request (Tramadol) 10/02/2024 Refill [facility] [place] [address] [place] [address] Luis Manuel aLra MD Refill Request (Losartan) 09/30/2024 11:20 AM SOD FARMER Office Visit [facility] [address] [place] [address] Sancho Madrid MD Musculoskeletal Problem (Follow up right scapular fracture, DOI 08/11/24) 09/30/2024 Travel 09/25/2024 Travel 09/24/2024 10:00 AM SOD FARMER Office Visit [address] [address] Lakesha Khan MD Hospital F/U ( MRI fracture scapula, fell ) 09/24/2024 Travel 09/21/2024 2:30 PM SOD FARMER Ancillary Procedure [facility] [address] [place] [address] 09/21/2024 2:00 PM SOD FARMER Office Visit [address] [address] Sancho Madrid MD Musculoskeletal Problem (Follow up right scapular fracture, DOI 08/11/24) 09/21/2024 Travel 09/19/2024 Travel 09/09/2024 11:20 AM SOD FARMER Office Visit [address] [address] Sancho Madrid MD Musculoskeletal Problem (Follow up right scapular fracture, DOI 08/11/24/) 09/09/2024 10:30 AM SOD FARMER Ancillary Procedure [facility] [address] [facility] [place] [address] 09/09/2024 Travel 09/07/2024 1:00 PM SOD FARMER Office Visit [facility] [place] [address] [facility] [address] [place] [address] Ramona Gonzalez, NOEMI CV Heart Failure Est (2 [facility] H[facility] CHF F/U /LABS DONE PRIOR AT [place]/DX:I25.5 (ICD-10-CM) - Ischemic cardiomyopathy //Pt states he has had a few dizzy spells over the last couple weeks. Pt states the dizzy spells have been happening for years. ) 09/07/2024 Travel 09/04/2024 Travel 09/02/2024 8:30 AM SOD FARMER Orders Only [facility] [address] [place] [address] Lab, [place] 09/02/2024 Travel 08/28/2024 Travel 08/27/2024 4:20 PM SOD FARMER Office Visit [facility] [address] [place] [address] Sancho Madrid MD Musculoskeletal Problem (Consult right clavicle/shoulder ) 08/27/2024 10:15 AM SOD FARMER Ancillary Procedure [facility] [address] [place] [address] 08/27/2024 Travel 08/25/2024 Telephone [facility] [address] [place] [address] Lakesha Khan MD Questions (MEDICATION FOR MRI) 08/24/[address] [place] [address] Lakesha Khan MD Medication Management (MRI sedation needed) 08/24/2024 Telephone [facility] [address] [facility] [address] [place] [phone] Ramona Gonzalez CNS Lab (Lab Orders needed) 08/22/2024 Travel 08/19/2024 8:45 AM SOD FARMER Office Visit [facility] [address] [place] [address] Lakesha Khan MD Hospital F/U (ANW 08/02 Heart Surgery, 1/ Right shoulder tore Rotator cuff) 08/19/2024 Travel 08/18/2024 Telephone [facility] [address] [place] [address] Lakesha Khan MD Returning call from Ortho Referral Scheduling 08/17/2024 12:45 PM SOD FARMER Home Care Visit [facility] [address] [place] [phone] Aracelis Paulino, PT PT - OASIS START OF CARE 08/17/2024 Telephone [facility] [address] [place] [address] Aracelis Paulino, PT Home Care (MRI Order) 08/17/2024 Plan of Care Documentation [facility] [address] [place] [phone] 08/17/2024 Telephone [facility] [address] [place] [address] Alexa Edward RN, CCRN LINQ scheduling 08/17/2024 Travel 08/17/2024 Telephone [facility] [address] [place] [phone] Suzan Gloria Appointment 08/17/2024 Patient Outreach [facility] [address] [place] [address] Tata Hinton, RN Primary RN Care Management; Hospital F/U (LACE 83) 08/13/2024 Orders Only [facility] [address] [place] [address] Ramona Gonzalez CNS <No scans attached> 08/07/2024 Travel 08/03/2024 Travel 08/02/2024 1:02 PM SOD FARMER - 08/15/2024 1:58 PM SOD FARMER Hospital Encounter [facility] [address] [place] [address] [place], MD Axel Herrera Kristal Sue, MD Lewis, Tammi, NOREEN Coronary atherosclerosis due to calcified coronary lesion of [place] artery (Primary Dx); Cardiovascular symptoms; Ischemic cardiomyopathy; [...] Discharge Disposition: Home Health 07/31/2024 9:05 AM SOD FARMER Office Visit [facility] [address] [place] [address] Lakesha Khan MD [facility] Med (update, still feeling right side zapts) 07/31/2024 Telephone [facility] [address] [facility] [address] [place] [phone] Brenton Estrada MD Prior Authorization (LINQ) 07/31/2024 Travel 07/27/2024 8:30 AM SOD FARMER Office Visit [facility] [place] [address] [facility] [address] [place] [phone] Luis Manuel Lara MD Follow Up (F/U. [...] PM CDT Legal Sex Male 6:41 AM SOD FARMER Gender Identity Male 04/28/2021 10:10 PM CDT Sexual Orientation Straight 04/28/2021 10 :10 PM CDT Occupation Industry Job Start Date Job End Date Not on file Not on file Not on file Not on file Obstetrics History Last Filed Vital Signs Vital Sign Reading Time Taken Comments Blood Pressure 117/76 10/16/2024 9:14 AM SOD FARMER Pulse 95 10/16/2024 9:14 AM SOD FARMER Temperature 36.4 C (97.5 F) 09/30/2024 11:17 AM SOD FARMER Respiratory Rate 18 08/17/2024 1:37 PM SOD FARMER Oxygen Saturation 98% 10/16/2024 9:14 AM SOD FARMER Inhaled Oxygen Concentration - - Weight 107.1 kg (236 lb 1.6 oz) 10/16/2024 9:14 AM SOD FARMER Height 188 cm (6' 2) 10/16/2024 9:14 AM SOD FARMER Body Mass Index 30.31 10/16/2024 9:14 AM SOD FARMER Plan of Treatment Upcoming Encounters Date Type Department Care Team (Late st Contact Info) Description 10/28/2024 11:20 AM CDT Office Visit [facility] [address] [place] [address] Sancho Madrid MD [address] [place] [address] 11/12/2024 8:20 AM CDT Office Visit [facility] [address] [place] [address] Lakesha Khan MD [address] [place] [address] 11/27/2024 9:30 AM CDT Appointment [facility] [address] [place] [address] 12/07/2024 11:00 AM CDT Office Visit [facility] [address] [facility] [address] [place] [phone] Brenton Estrada MD [address] [facility] [address] [place] [address] 12/15/2024 9:30 AM CDT Office Visit [facility] [address] [facility] [address] [place] [phone] Buzz Jolly, [facility] [address] [place] [address] Health Maintenance Due Date Last Done Comments Medicare Wellness for age 65+ 02/19/2024 02/18/2023 Tetanus booster 08/13/2024 08/13/2014, 08/2005, 08/28/1999 Depression screening for age 12+ 10/07/2024 10/07/2023, 08/19/2023, 08/15/2023, Additional history exists COVID-19 vaccine series ( season) 2024 05/07/2024, 11/21/2023, 05/14/2023, Additional history exists Fecal testing sDNA-FIT ([place] [employer]) for age 45-75 12/14/2024 12/14/2021 BMI [...] LIMITED W CONTRAST Routine 10/16/2024 9:02 AM SOD FARMER Ischemic cardiomyopathy FERRITIN Today 10/16/2024 8:23 AM SOD FARMER Ischemic cardiomyopathy Heart failure, unspecified HF chronicity, unspecified heart failure type (HC) IRON Today 10/16/2024 8:23 AM SOD FARMER Ischemic cardiomyopathy Heart failure, unspecified HF chronicity, unspecified heart failure type (HC) PRO-BNP Today 10/16/2024 8:23 AM SOD FARMER Ischemic cardiomyopathy Congestive heart failure, unspecified HF chronicity, unspecified heart failure type (HC) BASIC METABOLIC PANEL Today 10/16/2024 8:23 AM SOD FARMER Ischemic cardiomyopathy XR RIBS RIGHT AND PA CHEST MINIMUM 3 VIEWS Routine 09/21/2024 2:40 PM SOD FARMER Acute pain of right shoulder Closed nondisplaced fracture of body of right scapula with routine healing, subsequent encounter Rib pain on right side CT SCAPULA RIGHT WO FREDI 09/09/2024 1 2:04 PM SOD FARMER Acute pain of right shoulder Closed fracture of right scapula, unspecified part of scapula, initial encounter BASIC METABOLIC PANEL Routine 09/02/2024 8:10 AM SOD FARMER Chronic systolic (congestive) heart failure (HC) MAGNESIUM Routine 09/02/2024 8:10 AM SOD FARMER Chronic systolic (congestive) heart failure (HC) PRO-BNP Routine 09/02/2024 8:10 AM SOD FARMER Chronic systolic (congestive) heart failure (HC) MR SHOULDER RIGHT WO Routine 08/27/2024 10:31 AM SOD FARMER Acute pain of right shoulder Accidental fall, subsequent encounter URINE ALBUMIN TO CREATININE RATIO, RANDOM Routine 08/19/2024 10:28 AM SOD FARMER Type 2 diabetes mellitus with chronic kidney disease, with long-term current use of insulin, unspecified CKD stage (HC) HEMOGLOBIN Routine 08/19/2024 10:20 AM SOD FARMER Hospital discharge follow-up Anemia, unspecified type PRO-BNP Routine 08/19/2024 10:20 AM SOD FARMER Chronic systolic (congestive) heart failure (HC) BASIC METABOLIC PANEL Routine 08/19/2024 10:19 AM SOD FARMER Hospital discharge follow-up HEMOGLOBIN A1C MONITORING (POCT) Routine 08/19/2024 10:19 AM SOD FARMER Type 2 diabetes mellitus with chronic kidney disease, with long-term current use of insulin, unspecified CKD stage (HC) BASIC METABOLIC PANEL Routine 08/19/2024 10:18 AM SOD FARMER Chronic systolic (congestive) heart failure (HC) GLUCOSE METER Timed 08/15/2024 11:28 AM SOD FARMER GLUCOSE METER Timed 08/15/2024 8:11 AM SOD FARMER SCAN-CARDIAC STRIP 08/15/2024 7: 30 AM SOD FARMER GLUCOSE METER Timed 08/15/2024 7:02 AM SOD FARMER POTASSIUM Early AM 08/15/2024 6:30 AM SOD FARMER MAGNESIUM Early AM 08/15/2024 6:30 AM SOD FARMER HEMATOCRIT Early AM 08/15/2024 6:30 AM SOD FARMER HEMOGLOBIN Early AM 08/15/2024 6:30 AM SOD FARMER PLATELET COUNT Early AM 08/15/2024 6:30 AM SOD FARMER SCAN-CARDIAC STRIP 08/14/2024 11 :46 PM SOD FARMER GLUCOSE METER Timed 08/14/2024 10:18 PM SOD FARMER GLUCOSE METER Timed 08/14/2024 5:23 PM SOD FARMER GLUCOSE METER Timed 08/14/2024 1:03 PM SOD FARMER SCAN-CARDIAC STRIP 08/14/2024 10 :23 AM SOD FARMER SCAN-CARDIAC STRIP 08/14/2024 9: 56 AM SOD FARMER GLUCOSE METER Timed 08/14/2024 8:54 AM SOD FARMER BASIC METABOLIC PANEL Early AM 08/14/2024 8:05 AM SOD FARMER CBC W PLT NO DIFF Early AM 08/14/2024 8:0 5 AM SOD FARMER MAGNESIUM Early AM 08/14/2024 8:05 AM SOD FARMER SCAN-CARDIAC STRIP 08/14/2024 3: 11 AM SOD FARMER GLUCOSE METER Timed 08/13/2024 9:55 PM SOD FARMER GLUCOSE METER Timed 08/13/2024 5:23 PM SOD FARMER SCAN-CARDIAC STRIP 08/13/2024 5: 18 PM SOD FARMER EKG 12 LEAD FREDI 08/13/2024 5:16 PM SOD FARMER GLUCOSE METER Timed 08/13/2024 4:18 PM SOD FARMER GLUCOSE METER Timed 08/13/2024 2:44 PM SOD FARMER HCHG ACTIVATED CLOTTING TM CV Timed 08/13/2024 2:03 PM SOD FARMER HCHG ACTIVATED CLOTTING TM CV Timed 08/13/2024 1:50 PM SOD FARMER HCHG ACTIVATED CLOTTING TM CV Timed 08/13/2024 1:12 PM SOD FARMER HCHG ACTIVATED CLOTTING TM CV Timed 08/13/2024 12:36 PM SOD FARMER HCHG ACTIVATED CLOTTING TM CV Timed 08/13/2024 12:12 PM SOD FARMER HCHG ACTIVATED CLOTTING TM CV Timed 08/13/2024 11:43 AM SOD FARMER CVL CORONARY ANGIOGRAM POSS PCI Routine 08/13/2024 11:14 AM SOD FARMER Cardiovascular symptoms SCAN-CARDIAC STRIP 08/13/2024 8: 42 AM SOD FARMER GLUCOSE METER Timed 08/13/2024 7:48 AM SOD FARMER MAGNESIUM Early AM 08/13/2024 7:48 AM SOD FARMER BASIC METABOLIC PANEL Early AM 08/13/2024 7:48 AM SOD FARMER HEMATOCRIT Early AM 08/13/2024 7:48 AM SOD FARMER HEMOGLOBIN Early AM 08/13/2024 7:48 AM SOD FARMER PLATELET COUNT Early AM 08/13/2024 7:48 AM SOD FARMER GLUCOSE METER Timed 08/12/2024 9:46 PM SOD FARMER MAGNESIUM Timed 08/12/2024 7:07 PM SOD FARMER GLUCOSE METER Timed 08/12/2024 5:20 PM SOD FARMER EKG 12 LEAD STAT 08/12/2024 3:03 PM SOD FARMER BLOOD GAS,VENOUS STAT 08/12/2024 2:20 PM SOD FARMER LACTATE VENOUS STAT 08/12/2024 2:20 PM SOD FARMER GLUCOSE METER Timed 08/12/2024 1:57 PM SOD FARMER TROPONIN T (HS) ONE TIME Today 08/12/2024 1:21 PM SOD FARMER EKG 12 LEAD STAT 08/12/2024 11:58 AM SOD FARMER GLUCOSE METER Timed 08/12/2024 11:28 AM SOD FARMER PRO-BNP FREDI 08/12/2024 7:52 AM SOD FARMER MAGNESIUM Early AM 08/12/2024 7:52 AM SOD FARMER BASIC METABOLIC PANEL Early AM 08/12/2024 7:52 AM SOD FARMER HEMATOCRIT Early AM 08/12/2024 7:52 AM SOD FARMER HEMOGLOBIN Early AM 08/12/2024 7:52 AM SOD FARMER PLATELET COUNT Early AM 08/12/2024 7:52 AM SOD FARMER GLUCOSE METER Timed 08/12/2024 7:38 AM SOD FARMER SCAN-CARDIAC STRIP 08/12/2024 7: 36 AM SOD FARMER SCAN-CARDIAC STRIP 08/12/2024 4: 15 AM SOD FARMER GLUCOSE METER Timed 08/11/2024 10:00 PM SOD FARMER XR SHOULDER 3 VIEWS RIGHT STAT 08/11/2024 7:55 PM SOD FARMER XR HIP 2 OR 3 VIEWS W PELVIS RIGHT STAT 08/11/2024 7:55 PM SOD FARMER GLUCOSE METER Timed 08/11/2024 6:23 PM SOD FARMER SCAN-CARDIAC STRIP 08/11/2024 5: [address] SPINE CERVICAL WO STAT 08/11/2024 5:[address] HEAD BRAIN WO STAT 08/11/2024 5:08 PM SOD FARMER TROPONIN T (HS) ONE TIME STAT 08/11/2024 4:18 PM SOD FARMER EKG 12 LEAD STAT 08/11/2024 3:01 PM SOD FARMER GLUCOSE METER Timed 08/11/2024 11:28 AM SOD FARMER GLUCOSE METER Timed 08/11/2024 7:33 AM SOD FARMER SCAN-CARDIAC STRIP 08/11/2024 7: 23 AM SOD FARMER MAGNESIUM FREDI 08/11/2024 7:00 AM SOD FARMER BASIC METABOLIC PANEL Early AM 08/11/2024 7:00 AM SOD FARMER HEMATOCRIT Early AM 08/11/2024 7:00 AM SOD FARMER HEMOGLOBIN Early AM 08/11/2024 7:00 AM SOD FARMER PLATELET COUNT Early AM 08/11/2024 7:00 AM SOD FARMER SCAN-CARDIAC STRIP 08/11/2024 5: 57 AM SOD FARMER EKG 12 LEAD STAT 08/10/2024 11:17 PM SOD FARMER GLUCOSE METER Timed 08/10/2024 10:33 PM SOD FARMER MAGNESIUM Timed 08/10/2024 7:30 PM SOD FARMER EKG 12 LEAD STAT 08/10/2024 5:32 PM SOD FARMER GLUCOSE METER Timed 08/10/2024 5:27 PM SOD FARMER POTASSIUM Timed 08/10/2024 4:35 PM SOD FARMER GLUCOSE METER Timed 08/10/2024 12:30 PM SOD FARMER SCAN-CARDIAC STRIP 08/10/2024 10 :30 AM SOD FARMER GLUCOSE METER Timed 08/10/2024 10:08 AM SOD FARMER MAGNESIUM FREDI 08/10/2024 9:11 AM SOD FARMER CBC W PLT NO DIFF Early AM 08/10/2024 9:1 1 AM SOD FARMER BASIC METABOLIC PANEL Early AM 08/10/2024 9:11 AM SOD FARMER GLUCOSE METER Timed 08/10/2024 8:00 AM SOD FARMER SCAN-CARDIAC STRIP 08/10/2024 6: 22 AM SOD FARMER MAGNESIUM Timed 08/09/2024 9:44 PM SOD FARMER GLUCOSE METER Timed 08/09/2024 8:58 PM SOD FARMER GLUCOSE METER Timed 08/09/2024 4:50 PM SOD FARMER GLUCOSE METER Timed 08/09/2024 12:[address] CHEST WO Early AM 08/09/2024 9:05 AM SOD FARMER SCAN-CARDIAC STRIP 08/09/2024 8: 34 AM SOD FARMER GLUCOSE METER Timed 08/09/2024 7:47 AM SOD FARMER MAGNESIUM Early AM 08/09/2024 7:15 AM SOD FARMER CBC W PLT NO DIFF Early AM 08/09/2024 7: 15 AM SOD FARMER BASIC METABOLIC PANEL Early AM 08/09/2024 7:15 AM SOD FARMER GLUCOSE METER Timed 08/08/2024 9:46 PM SOD FARMER GLUCOSE METER Timed 08/08/2024 6:15 PM SOD FARMER XR CHEST 1 VIEW PORTABLE STAT 08/08/2024 12:34 PM SOD FARMER EKG 12 LEAD STAT 08/08/2024 12:23 PM SOD FARMER GLUCOSE METER Timed 08/08/2024 11:58 AM SOD FARMER SCAN-CARDIAC STRIP 08/08/2024 9: 57 AM SOD FARMER GLUCOSE METER Timed 08/08/2024 8:02 AM SOD FARMER CREATININE Add On 08/08/2024 7:31 AM SOD FARMER POTASSIUM Early AM 08/08/2024 7:31 AM SOD FARMER MAGNESIUM Early AM 08/08/2024 7:31 AM SOD FARMER HEMATOCRIT Early AM 08/08/2024 7:31 AM SOD FARMER HEMOGLOBIN Early AM 08/08/2024 7:31 AM SOD FARMER PLATELET COUNT Early AM 08/08/2024 7:31 AM SOD FARMER SCAN-CARDIAC STRIP 08/08/2024 5: 54 AM SOD FARMER WHITE BLOOD COUNT Today 08/08/2024 12: 02 AM SOD FARMER GLUCOSE METER Timed 08/07/2024 9:59 PM SOD FARMER GLUCOSE METER Timed 08/07/2024 5:28 PM SOD FARMER US VENOUS UPPER EXTREMITY RIGHT Routine 08/07/2024 4:16 PM SOD FARMER GLUCOSE METER Timed 08/07/2024 1:17 PM SOD FARMER MR CARDIAC WWO Routine 08/07/2024 1:06 PM SOD FARMER SCAN-CARDIAC STRIP 08/07/2024 8: 44 AM SOD FARMER GLUCOSE METER Timed 08/07/2024 7:53 AM SOD FARMER BASIC METABOLIC PANEL Early AM 08/07/2024 7:45 AM SOD FARMER MAGNESIUM Early AM 08/07/2024 7:45 AM SOD FARMER HEMATOCRIT Early AM 08/07/2024 7:45 AM SOD FARMER HEMOGLOBIN Early AM 08/07/2024 7:45 AM SOD FARMER PLATELET COUNT Early AM 08/07/2024 7:45 AM SOD FARMER GLUCOSE METER Timed 08/07/2024 2:46 AM SOD FARMER GLUCOSE METER Timed 08/06/2024 10:30 PM SOD FARMER GLUCOSE METER Timed 08/06/2024 10:09 PM SOD FARMER SCAN-CARDIAC STRIP 08/06/2024 8: 50 PM SOD FARMER GLUCOSE METER Timed 08/06/2024 5:00 PM SOD FARMER GLUCOSE METER Timed 08/06/2024 11:38 AM SOD FARMER SCAN-CARDIAC STRIP 08/06/2024 10 :30 AM SOD FARMER CVL CORONARY ANGIOGRAM POSS PCI Routine 08/06/2024 9:22 AM SOD FARMER Cardiovascular symptoms GLUCOSE METER Timed 08/06/2024 7:14 AM SOD FARMER CREATININE Early AM 08/06/2024 6:44 AM SOD FARMER SODIUM Early AM 08/06/2024 6:44 AM SOD FARMER POTASSIUM Early AM 08/06/2024 6:44 AM SOD FARMER MAGNESIUM Early AM 08/06/2024 6:44 AM SOD FARMER HEMATOCRIT Early AM 08/06/2024 6:44 AM SOD FARMER HEMOGLOBIN Early AM 08/06/2024 6:44 AM SOD FARMER PLATELET COUNT Early AM 08/06/2024 6:44 AM SOD FARMER SCAN-CARDIAC STRIP 08/06/2024 3: 05 AM SOD FARMER TROPONIN T (HS) ONE TIME Timed 08/05/2024 11:32 PM SOD FARMER TROPONIN T (HS) ACUTE W/2HR REFLEX STAT 08/05/2024 9:33 PM SOD FARMER GLUCOSE METER Timed 08/05/2024 9:29 PM SOD FARMER EKG 12 LEAD STAT 08/05/2024 9:00 PM SOD FARMER GLUCOSE METER Timed 08/05/2024 6:38 PM SOD FARMER TROPONIN T (HS) ONE TIME Timed 08/05/2024 5:48 PM SOD FARMER TROPONIN T (HS) ACUTE W/2HR REFLEX STAT 08/05/2024 1:39 PM SOD FARMER GLUCOSE METER Timed 08/05/2024 11:56 AM SOD FARMER XR CHEST 2 VIEWS PA AND LATERAL Routine 08/05/2024 10:42 AM SOD FARMER SCAN-CARDIAC STRIP 08/05/2024 8: 11 AM SOD FARMER SCAN-CARDIAC STRIP 08/05/2024 8: 11 AM SOD FARMER SCAN-CARDIAC STRIP 08/05/2024 8: 11 AM SOD FARMER GLUCOSE METER Timed 08/05/2024 7:10 AM SOD FARMER PRO-BNP Add On 08/05/2024 6:09 AM SOD FARMER ANTI HIV 1/2 FREDI 08/05/2024 6:09 AM SOD FARMER TSH FREDI 08/05/2024 6:09 AM SOD FARMER IRON PLUS IRON BINDING CAP FREDI 08/05/2024 6:09 AM SOD FARMER FERRITIN FREDI 08/05/2024 6:09 AM SOD FARMER BASIC METABOLIC PANEL Early AM 08/05/2024 6:09 AM SOD FARMER MAGNESIUM Early AM 08/05/2024 6:09 AM SOD FARMER HEMATOCRIT Early AM 08/05/2024 6:09 AM SOD FARMER HEMOGLOBIN Early AM 08/05/2024 6:09 AM SOD FARMER PLATELET COUNT Early AM 08/05/2024 6:09 AM SOD FARMER SCAN-CARDIAC STRIP 08/05/2024 2: 22 AM SOD FARMER GLUCOSE METER Timed 08/04/2024 9:17 PM SOD FARMER GLUCOSE METER Timed 08/04/2024 5:38 PM SOD FARMER LACTATE VENOUS Today 08/04/2024 1:42 PM SOD FARMER GLUCOSE METER Timed 08/04/2024 1:30 PM SOD FARMER EKG 12 LEAD STAT 08/04/2024 12:35 PM SOD FARMER GLUCOSE METER Timed 08/04/2024 11:53 AM SOD FARMER SCAN CORRESP-EKG RESULTS 08/04/2024 10:27 AM SOD FARMER SCAN CORRESP-IMAGING 08/04/2024 10:27 AM SOD FARMER SCAN-CARDIAC STRIP 08/04/2024 10 :15 AM SOD FARMER EKG 12 LEAD STAT 08/04/2024 9:21 AM SOD FARMER ECHO TTE LIMITED W CONTRAST W COLOR W DOPPLER Routine 08/04/2024 8:55 AM SOD FARMER GLUCOSE METER Timed 08/04/2024 8:13 AM SOD FARMER HEPATIC FUNCTION PANEL FREDI 08/04/2024 6:13 AM SOD FARMER SODIUM Early AM 08/04/2024 6:13 AM SOD FARMER MAGNESIUM Early AM 08/04/2024 6:13 AM SOD FARMER POTASSIUM Early AM 08/04/2024 6:13 AM SOD FARMER CREATININE Early AM 08/04/2024 6:13 AM SOD FARMER HEMATOCRIT Early AM 08/04/2024 6:13 AM SOD FARMER HEMOGLOBIN Early AM 08/04/2024 6:13 AM SOD FARMER PLATELET COUNT Early AM 08/04/2024 6:13 AM SOD FARMER EKG 12 LEAD STAT 08/04/2024 4:23 AM SOD FARMER GLUCOSE METER Timed 08/03/2024 9:54 PM SOD FARMER XR CHEST 2 VIEWS PA AND LATERAL Routine 08/03/2024 7:28 PM SOD FARMER GLUCOSE METER Timed 08/03/2024 6:07 PM SOD FARMER SCAN-CARDIAC STRIP 08/03/2024 4: 20 PM SOD FARMER MAGNESIUM FREDI 08/03/2024 4:17 PM SOD FARMER POTASSIUM FREDI 08/03/2024 4:17 PM SOD FARMER PRO-BNP Today 08/03/2024 4:17 PM SOD FARMER EKG 12 LEAD FREDI 08/03/2024 3:01 PM SOD FARMER HCHG ACTIVATED CLOTTING TM CV Timed 08/03/2024 2:50 PM SOD FARMER GLUCOSE METER Timed 08/03/2024 2:42 PM SOD FARMER HCHG ACTIVATED CLOTTING TM CV Timed 08/03/2024 2:21 PM SOD FARMER COVID/FLU/RSV PANEL Today 08/03/2024 1 :30 PM SOD FARMER HCHG ACTIVATED CLOTTING TM CV Timed 08/03/2024 1:10 PM SOD FARMER HCHG ACTIVATED CLOTTING TM CV Timed 08/03/2024 12:30 PM SOD FARMER HCHG ACTIVATED CLOTTING TM CV Timed 08/03/2024 12:14 PM SOD FARMER COMPREHENSIVE BLOOD GAS MIXED VENOUS Timed 08/03/2024 11:51 AM SOD FARMER CVL CORONARY ANGIOGRAM POSS PCI Routine 08/03/2024 11:23 AM SOD FARMER Cardiovascular symptoms GLUCOSE METER Timed 08/03/2024 8:47 AM SOD FARMER APTT Timed 08/03/2024 7:42 AM SOD FARMER HEMATOCRIT Early AM 08/03/2024 6:42 AM SOD FARMER HEMOGLOBIN Early AM 08/03/2024 6:42 AM SOD FARMER PLATELET COUNT Early AM 08/03/2024 6:42 AM SOD FARMER EKG 12 LEAD STAT 08/03/2024 2:14 AM SOD FARMER APTT Timed 08/03/2024 1:22 AM SOD FARMER EKG 12 LEAD STAT 08/02/2024 9:14 PM SOD FARMER GLUCOSE METER Timed 08/02/2024 9:02 PM SOD FARMER LIPID PANEL FREDI 08/02/2024 8:07 PM SOD FARMER TROPONIN T (HS) ACUTE W/2HR REFLEX STAT 08/02/2024 8:07 PM SOD FARMER EKG 12 LEAD STAT 08/02/2024 8:00 PM SOD FARMER GLUCOSE METER Timed 08/02/2024 6:16 PM SOD FARMER SCAN-CARDIAC STRIP 08/02/2024 5: 35 PM SOD FARMER EKG 12 LEAD STAT 08/02/2024 5:00 PM SOD FARMER GLUCOSE METER Timed 08/02/2024 4:56 PM SOD FARMER TROPONIN T (HS) ONE TIME Today 08/02/2024 3:47 PM SOD FARMER BASIC METABOLIC PANEL FREDI 08/02/2024 2:27 PM SOD FARMER CREATININE FREDI 08/02/2024 2:27 PM SOD FARMER BUN FREDI 08/02/2024 2:27 PM SOD FARMER HEMATOCRIT FREDI 08/02/2024 2:27 PM SOD FARMER HEMOGLOBIN FREDI 08/02/2024 2:27 PM SOD FARMER PLATELET COUNT FREDI 08/02/2024 2:27 PM SOD FARMER APTT FREDI 08/02/2024 2:27 PM SOD FARMER PROTIME-INR FREDI 08/02/2024 2:27 PM SOD FARMER ANTI HCV Routine 04/16/2017 9:14 AM CDT Encounter for hepatitis C screening test for low risk patient from Last 3 Months or Most Recently Relevant to Health Maintenance Results * ECHO TTE LIMITED W CONTRAST (10/16/2024 9:02 AM SOD FARMER) Only the most recent of2 resultswithin the time period is included. AORTIC VALVE MEAN PG 4 mmHg EJECTION FRACTION 22 % LVEDD 5.9 cm Anatomical Region Laterality Modality Ultrasound, Comp uted Tomography 10/16/2024 8:24 AM SOD FARMER Narrative 10/16/2024 9:45 AM SOD FARMER ECHOCARDIOGRAM HARRY LUNA : 1955 68 years Study Date: 10/16/2024 8:24:57 AM Gender: M BP: 110/71 mmHg Height: 188.00 cm BSA: 2.34 m Weight: 108.00 kg Tech: JEMAL Referring MD: RAMONA GONZALEZ Site: [facility] Reading Location: [facility] Patient Location: Outpatient. Procedure: 2D w/ Contrast, [...] study was interpreted by an [facility] accredited facility. Final Procedure Note Laura Rosario MD - 10/16/2024 ECHOCARDIOGRAM HARRY LUNA : 1955 68 years Study Date: 10/16/2024 8:24:57 AM Gender: M BP: 110/71 mmHg Height: 188.00 cm BSA: 2.34 m Weight: 108.00 kg Tech: JEMAL Referring MD: RAMONA GONZALEZ Site: [facility] Reading Location: [facility] Patient Location: Outpatient. Procedure: 2D w/ Contrast, [...] study was interpreted by an [facility] accredited facility. Final Ramona Gonzalez SQL REPORT WRITER ECHO ORD Final Resu lt * IRON (10/16/2024 8:23 AM SOD FARMER) Pathologist [facility] [place] [facility] IRON 65 61 - 157 ug/dL 10/16/2024 1:16 PM SOD FARMER [facility] Blood BLOOD SPECIMEN / Unknown Venipuncture / Unknown 10/16/2024 8:23 AM SOD FARMER 10/16/2024 8:23 AM SOD FARMER us Ramona Gonzalez [facility] CHEMISTRY Final Resu lt [facility] [address] [place] [address], * (ABNORMAL) PRO-BNP (10/16/2024 8:23 AM SOD FARMER) Only the most recent of6 resultswithin the time period is included. [facility] PRO-BNP 1,563(H) <125 pg/mL 10/16/2024 10:12 AM SOD FARMER [facility] Blood BLOOD SPECIMEN / Unknown Venipuncture / Unknown 10/16/2024 8:23 AM SOD FARMER 10/16/2024 8:23 AM SOD FARMER Narrative [facility] - 10/16/2024 10:12 AM SOD FARMER The following cut-points have been suggested for [...] for acute congestive heart failure. Ramona Gonzalez [facility] SEND OUTS Final Resu Performing Organization Address [facility] Co de Phone Number [facility] [address] [place] [address] * FERRITIN (10/16/2024 8:23 AM SOD FARMER) Only the most recent of2 resultswithin the time period is included. Pathologist [facility] [place] [facility] FERRITIN 37.1 30.0 - 400.0 ng/mL 10/16/2024 1:16 PM SOD FARMER [facility] Blood BLOOD SPECIMEN / Unknown Venipuncture / Unknown 10/16/2024 8:23 AM SOD FARMER 10/16/2024 8:23 AM SOD FARMER Ramona Gonzalez [facility] CHEMISTRY Final Resu Performing Organization Address [facility] de Phone Number [facility] [address] [place] [address] * (ABNORMAL) BASIC METABOLIC PANEL (10/16/2024 8:23 AM SOD FARMER) Only the most recent of13 resultswithin the time period is included. SODIUM 140 136 - 145 mmol/L 10/16/2024 8:[address] [facility] POTASSIUM 4.2 3.5 - 5.1 mmol/L 10/16/2024 8:[address] [facility] CHLORIDE 104 98 - 107 mmol/L 10/16/2024 8:[address] [facility] CO2,TOTAL 25 22 - 29 mmol/L 10/16/2024 8:[address] [facility] ANION GAP 11 5 - 18 10/16/2024 8:[address] [facility] GLUCOSE 181(H) 70 - 99 mg/dL 10/16/2024 8:[address] [facility] CALCIUM 8.9 8.8 - 10.4 mg/dL 10/16/2024 8:[address] [facility] Comment: Reference ranges for this test were updated on 06/16/2024 to reflect our healthy population more accurately. Reference range changes are not retroactively applied to results, but previous results using the same methodology can be interpreted in the context of the new reference range. BUN 26(H) 8 - 23 mg/dL 10/16/2024 8:[address] [facility] CREATININE 1.26(H) 0.70 - 1.20 mg/dL 10/16/2024 8:[address] [facility] BUN/CREAT RATIO 21(H) 10 - 20 8:[address] [facility] eGFR 63(L) >90 mL/min/1. 73m2 10/16/2024 8:[address] [facility] Comment:As of 2021, eG FR is calculated by the CKD-EPI creatinine equation without race adjustment. eGFR can be influenced by muscle mass, exercise, and diet. The reported eGFR is an estimation only and is only applicable if the renal function is stable. Blood BLOOD SPECIMEN / Unknown Venipuncture / Unknown 10/16/2024 8:23 AM SOD FARMER 10/16/2024 8:23 AM SOD FARMER us Ramona Gonzalez [facility] CHEMISTRY Final Resu lt [facility] [address] [place] [address] * XR RIBS RIGHT AND PA CHEST MINIMUM 3 VIEWS (09/21/2024 2:40 PM SOD FARMER) Anatomical Region Laterality Modality RIBS, RIBS R, CHEST Computed Rad iography 09/21/2024 2:49 PM SOD FARMER Impressions 09/21/2024 2:49 PM SOD FARMER Healing scapular fracture. Dictated by Luis Manuel Figueroa MD @ 09/21/2024 2:49:45 PM (Electronically Signed) Narrative 09/21/2024 2:49 PM SOD FARMER For Patients: As a result of the [...] CT SCAPULA RIGHT WO (09/09/2024 12:04 PM SOD FARMER) Anatomical Region Laterality Modality SCAPULA Computed Tomogra phy 09/09/2024 12:5 8 PM SOD FARMER Addenda Addendum by Sancho Sneed MD on 09/09/2024 2:37 PM SOD FARMER INDICATION: Acute pain. Assess for fracture. COMPARISON: [...] 2:25PM (Electronically Signed) Impressions 09/09/2024 12:58 PM SOD FARMER 1. No scapular fracture or bone lesion. 2. Widened AC joint likely chronic with no definitive acute edema. Please note that all CT scans at this facility use dose modulation, iterative reconstruction, and/or weight-based dosing when appropriate to reduce radiation dose to as low as reasonably achievable. Dictated by Sancho Sneed MD @ 09/09/2024 12:58:44 PM (Electronically Signed) Narrative 09/09/2024 12:58 PM SOD FARMER For Patients: As a result of the [...] 09/09/2024 12:58:44 PM (Electronically Signed) us Sancho Madird MD CT Edited Res ult - Final * MAGNESIUM (09/02/2024 8:10 AM SOD FARMER) Only the most recent of17 resultswithin the time period is included. MAGNESIUM 2.0 1.5 - 2.5 mg/dL [facility] Blood BLOOD SPECIMEN / Unknown 09/02/2024 8:10 AM SOD FARMER 09/02/2024 8:10 AM SOD FARMER us Ramona Gonzalez SQL REPORT WRITER CHEMISTRY Final Resu lt [facility] [address] [place] [address], [employer] [facility] [address] [place] [address] * MR SHOULDER RIGHT WO (08/27/2024 10:31 AM SOD FARMER) Anatomical Region Laterality Modality SHOULDER R Magnetic Resonan ce 08/27/2024 12:0 9 PM SOD FARMER Impressions 08/27/2024 12:09 PM SOD FARMER 1. Nondisplaced fracture of the scapular spine [...] PM (Electronically Signed) Narrative 08/27/2024 12:09 PM SOD FARMER For Patients: As a result of the [...] TO CREATININE RATIO, RANDOM (08/19/2024 10:28 AM SOD FARMER) ALB RAND URINE 76.9 mg/L 08/19/2024 4:25 PM SOD FARMER [facility] TR[facility] LAB[facility]ORY CREATININE,URIN E 0.91 g/L 08/19/2024 4:25 PM SOD FARMER [facility] ALBUMIN TO CREATININE RATIO,RAND UR 84.5(H) <30.0 mg/g creat 08/19/2024 4:25 PM SOD FARMER [facility] Urine URINE SPECIMEN / Unknown Non-Blood / Unknown 08/19/2024 10:28 AM SOD FARMER 08/19/2024 10:28 AM SOD FARMER Narrative [facility] - 08/19/2024 4:25 PM SOD FARMER If Albumin to Creatinine Ratio is elevated, consider the following: Elevations seen with incipient nephropathy associated with diabetes mellitus or hypertension. Stress, exercise,hematuria, and urinary tract infection may also produce elevated results. If clinically indicated, confirm with 24 Hour Albumin to Creatinine Ratio. us Lakesha Khan MD URINE Final Resul t [facility] [address] [place] [address], [place] * (ABNORMAL) HEMOGLOBIN (08/19/2024 10:20 AM SOD FARMER) Only the most recent of12 resultswithin the time period is included. HEMOGLOBIN 12.3(L) 13.2 - 17.1 g/dL [facility] Blood BLOOD SPECIMEN / Unknown 08/19/2024 10:20 AM SOD FARMER 08/19/2024 10:21 AM SOD FARMER Lakesha Khan MD HEMATOLOGY Final Resul t Performing Organization Address City/[facility]/ZIP Co de Phone Number [facility] [address] [place] [address], [facility] [address] [place] [address] * (ABNORMAL) POCT Hemoglobin A1C Monitoring (08/19/2024 10:19 AM SOD FARMER) POC HEMOGLOBIN A1C 7.8(H) <6.0 % OF TOTAL HGB [facility] Comment: Any point of care results exhibiting inconsistency with the patient's clinical status should be repeated using a different testing method. Blood BLOOD SPECIMEN / Unknown 08/19/2024 10:19 AM SOD FARMER 08/19/2024 10:20 AM SOD FARMER Lakesha Khan MD CHEMISTRY Final Resul t Performing Organization Address City/[facility]/ZIP Co de Phone Number [facility] [address] [place] [address], [place] [phone] [facility] [address] [place] [address] * (ABNORMAL) GLUCOSE METER (08/15/2024 11:28 AM SOD FARMER) Only the most recent of60 resultswithin the time period is included. GLUCOSE METER 225(H) 65 - 100 mg/dL 08/15/2024 11:29 AM SOD FARMER [facility] Blood BLOOD SPECIMEN / Unknown 08/15/2024 11:28 AM SOD FARMER 08/15/2024 11:29 AM SOD FARMER Luis Manuel Leary MD CHEMISTRY Final R esult Performing Organization Address [facility] Co de Phone Number [facility] [address] [address], [place] * SCAN-CARDIAC STRIP (08/15/2024 7:30 AM SOD FARMER) us Scanner OTHER Final Result * PLATELET COUNT (08/15/2024 6:30 AM SOD FARMER) Only the most recent of11 resultswithin the time period is included. PLATELET COUNT 158 140 - 440 thou/cu mm 08/15/2024 7:08 AM SOD FARMER [facility] MPV 10.2 6.5 - 11.0 fL 08/15/2024 7:08 AM SOD FARMER [facility] Blood BLOOD SPECIMEN / Unknown Venipuncture / Unknown 08/15/2024 6:30 AM SOD FARMER 08/15/2024 7:02 AM SOD FARMER Narrative [facility] - 08/15/2024 7:08 AM SOD FARMER Every morning while on IV heparin. Every morning while on IV heparin. Necessary every morning while on IV heparin. Luis Manuel Leary MD HEMATOLOGY Final R esult Performing Organization Address [facility] de Phone Number [facility] [address] [address], [place] * HEMATOCRIT (08/15/2024 6:30 AM SOD FARMER) Only the most recent of11 resultswithin the time period is included. HEMATOCRIT 40.2 37.0 - 53.0 % 08/15/2024 7:08 AM SOD FARMER [facility] Blood BLOOD SPECIMEN / Unknown Venipuncture / Unknown 08/15/2024 6:30 AM SOD FARMER 08/15/2024 7:02 AM SOD FARMER Narrative [facility] - 08/15/2024 7:08 AM SOD FARMER Every morning while on IV heparin. Every morning while on IV heparin. Necessary every morning while on IV heparin. Luis Manuel Leary MD HEMATOLOGY Final R esult Performing Organization Address City/[facility]/ZIP Co de Phone Number [facility] [address] [place] [address], * POTASSIUM (08/15/2024 6:30 AM SOD FARMER) Only the most recent of6 resultswithin the time period is included. Pathologist [facility] POTASSIUM 4.2 3.5 - 5.1 mmol/L 08/15/2024 7:30 AM SOD FARMER [facility] Blood BLOOD SPECIMEN / Unknown Venipuncture / Unknown 08/15/2024 6:30 AM SOD FARMER 08/15/2024 7:02 AM SOD FARMER Luis Manuel Leary MD CHEMISTRY Final R [facility] Performing Organization Address [facility] Co de Phone Number [facility] [address] [place] [address], [place] * SCAN-CARDIAC STRIP (08/14/2024 11:46 PM SOD FARMER) us Scanner OTHER Final Result * SCAN-CARDIAC STRIP (08/14/2024 10:23 AM SOD FARMER) us Scanner OTHER Final Result * SCAN-CARDIAC STRIP (08/14/2024 9:56 AM SOD FARMER) us Scanner OTHER Final Result * (ABNORMAL) CBC with Platelets no Differential (08/14/2024 8:05 AM SOD FARMER) Only the most recent of3 resultswithin the time period is included. WHITE BLOOD COUNT 6.4 4.5 - 11.0 thou/cu mm 08/14/2024 8:46 AM SOD FARMER [facility] TR[facility] LAB[facility] RED BLOOD COUNT 4.74 4.30 - 5.90 mil/cu mm 08/14/2024 8:46 AM SOD FARMER [facility] HEMOGLOBIN 11.9(L) 13.5 - 17.5 g/dL 08/14/2024 8:46 AM SOD FARMER [facility] HEMATOCRIT 38.7 37.0 - 53.0 % 08/14/2024 8:46 AM SOD FARMER [facility] MCV 82 80 - 100 fL 08/14/2024 8:46 AM [facility] TR[facility] LAB[facility] MCH 25.1(L) 26.0 - 34.0 pg 08/14/2024 8:46 AM SOD FARMER [facility] MCHC 30.7(L) 32.0 - 36.0 g/dL 08/14/2024 8:46 AM [facility] RDW 16.6(H) 11.5 - 15.5 % 08/14/2024 8:46 AM [facility] PLATELET COUNT 163 140 - 440 thou/cu mm 08/14/2024 8:46 AM [facility] MPV 10.1 6.5 - 11.0 fL 08/14/2024 8:46 AM [facility] NRBC 0.0 % 08/14/2024 8:46 AM [facility] ABS NRBC 0.0 thou /cu mm 08/14/2024 8:46 AM [facility] Blood BLOOD SPECIMEN / Unknown Venipuncture / Unknown 08/14/2024 8:05 AM SOD FARMER 08/14/2024 8:36 AM SOD FARMER us Marva Palacios MD HEMATOLOGY Fin al Result [facility] [address] [place] [address], * SCAN-CARDIAC STRIP (08/14/2024 3:11 AM SOD FARMER) us Scanner OTHER Final Result * SCAN-CARDIAC STRIP (08/13/2024 5:18 PM SOD FARMER) us Scanner OTHER Final Result * EKG - On Arrival to Floor (08/13/2024 5:16 PM SOD FARMER) Only the most recent of16 resultswithin the [...] NOW QTc 531 ms BEYOND NOW P Sterling 45 degrees BEYOND NOW R Sterling -51 degrees BEYOND NOW T Sterling 21 degrees BEYOND NOW 08/13/2024 5:16 PM SOD FARMER 08/15/2024 12:38 AM SOD FARMER Marva Palacios MD EKG ORD Fin al Result Performing Organization Address City/[facility]/ZIP Co de Phone Number BEYOND NOW [place], [place] * (ABNORMAL) ACTIVATED CLOTTING TIME [id number] ACT (08/13/2024 2:03 PM SOD FARMER) Only the most recent of11 resultswithin the time period is included. ACTIVATED CLOTTING TIME, POCT 332(H) 74 - 125 sec 08/14/2024 4:04 PM SOD FARMER [facility] [employer] [facility] Blood BLOOD SPECIMEN / Unknown 08/13/2024 2:03 PM SOD FARMER 08/14/2024 4:04 PM SOD FARMER us Luis Manuel Leary MD HEMATOLOGY Final R esult [facility] [address] [place] [address], * CVL CORONARY ANGIOGRAM POSS PCI (08/13/2024 11:14 AM SOD FARMER) Anatomical Region Laterality Modality Other 08/13/2024 11:1 4 AM SOD FARMER Narrative Transcriptions Orville Mcmillan MD - 08/13/2024 3:38 PM CST [facility] Cardiac Catheterization Report Name: HARRY LUNA Event Date: 08/13/2024 11:14 Emmanuelian ID #: [id number] [facility] #: [id number] Patient Class: Inpatient Diagnostic Physician: ORVILLE MCMILLAN [facility] Interventional Physician: ORVILLE MCMILLAN [facility] Referring Physician: Date: 1955 Gender: Male Age: [...] 12 months following complex PCI. Consent & Sheridan Protocol The risks, benefits, and alternatives of the procedure were discussed withthe patient and written informed consent was obtained. Sheridan protocol was followed. TIME OUT conducted just prior tostarting procedure confirmed patient identity, site/side, procedure,patient position, and availability of correct equipment and implants (ifapplicable). Staff Name Title Orville Mcmillan Hadoop Application Developer Melly Reed RN Nurse Padmini Alva CVT [...] 20MM 3 1st Diagonal Balloon JUDY IDALIA [place] RX [id number] 3 1st Diagonal Balloon BLLN Takeru RX 2.0 x15mm 3 1st Diagonal Balloon BLLN EUPHORA [place] RX 2.75MM X 15MM 3 1st Diagonal Drug Eluting Stent JUDY IDALIA [place] RX [id number] 3 1st Diagonal Pressure Wire Wire Pressure Gen X 175cm 2 Proximal LAD Balloon BLLN SHOCKWAVE [id number] 2 Proximal LAD Balloon BLLN EUPHORA NC RX 3.5MM X 15MM 2 Proximal LAD Balloon BLLN 3X15MM NC EMERGE RX 2 Proximal LAD Drug Eluting Stent JUDY IDALIA [place] RX [id number] 2 Proximal LAD Balloon BLLN EUPHORA NC RX 3MM X 27MM 2 Proximal LAD Pressure Wire Wire Pressure Gen X 175cm 2 Proximal LAD Other Device CATH OCT Dragonfly OpStar 4 Mid LAD Drug Eluting Stent JUDY IDALIA [place] RX [id number] 4 Mid LAD Balloon JUDY IDALIA [place] RX [id number] 4 Mid LAD Balloon BLLN 3X15MM NC EMERGE RX 4 Mid LAD Balloon BLLN EUPHORA NC RX 2.5MM X 20MM Procedure Details Estimated Blood Loss: < 30 ml Specimen Collected: None Level of Sedation Achieved: Mild Procedure Start: 11:14 Procedure End: 14:01 Procedure Time: 167 min Fluoroscopy Time: 37.6 min Cumulative Air Kerma: 2908 mGy DAP: 66217 uGy/M2 Contrast: Omnipaque (low-osmolar), 180 ml Physiologic [...] healthcare professional providing the sedation ends personal [id number] time with the patient. The medications listed above were verbally ordered by me and read back tome as documented above. Refer to the procedure log report for additional case details. electronically signed on 08/13/2024 3:38:04 PM with status of Final Orville Landin MD [facility] [address] [address] [place] [address] (p) [phone](f) us Provider Referring CV IMAGING Edited Result - Final * SCAN-CARDIAC STRIP (08/13/2024 8:42 AM SOD FARMER) us Scanner OTHER Final Result * Lactate, Venous - WOOD FENCE INSTALLER (08/12/2024 2:20 PM SOD FARMER) Only the most recent of2 resultswithin the time period is included. LACTATE,VENOUS 1.1 0.5 - 2.0 mmol/L 08/12/2024 3:03 PM SOD FARMER [facility] Blood BLOOD SPECIMEN / Unknown Non-Lab Venipuncture / Unknown 08/12/2024 2:20 PM SOD FARMER 08/12/2024 2:31 PM SOD FARMER Luis Manuel Leary MD CHEMISTRY Final R esult [facility] [address] [place] [address], * (ABNORMAL) BLOOD GAS,VENOUS (08/12/2024 2:20 PM SOD FARMER) PH, VENOUS 7.31(L) 7.32 - 7.43 08/12/2024 2:36 PM SOD FARMER [facility] PCO2, VENOUS 55(H) 41 - 51 mmHg 08/12/2024 2:36 PM SOD FARMER [facility] PO2, VENOUS 48(H) 35 - 40 mmHg 08/12/2024 2:36 PM SOD FARMER [facility] HCO3,VENOUS 28 22 - 29 mmol/L 08/12/2024 2:36 PM SOD FARMER [facility] BASE EXCESS, VENOUS, POCT 0.4 -2.0 - 3.0 08/12/2024 2:36 PM SOD FARMER [facility] O2 SATURATION, VENOUS 72 70 - 75 % 08/12/2024 2:36 PM SOD FARMER [facility] PATIENT TEMPERATURE 37.0 Degrees C 08/12/2024 2:36 PM SOD FARMER [facility] Blood VENOUS BLOOD SPECIMEN / Unknown Non-Lab Venipuncture / Unknown 08/12/2024 2:20 PM SOD FARMER 08/12/2024 2:31 PM SOD FARMER us Luis Manuel Leary MD CHEMISTRY Final R esult [facility] [address] [place] [address], [place] * (ABNORMAL) TROPONIN T (HS) ONE TIME (08/12/2024 1:21 PM SOD FARMER) Only the most recent of5 resultswithin the time period is included. Pathologist [facility] [place] [facility] TROPONIN T HS 32(H) 6-15 ng/L ng/L 08/12/2024 2:08 PM SOD FARMER [facility] Blood BLOOD SPECIMEN / Unknown Venipuncture / Unknown 08/12/2024 1:21 PM SOD FARMER 08/12/2024 1:34 PM SOD FARMER Narrative [facility] - 08/12/2024 2:08 PM SOD FARMER hs-cTnT (Elecsys Troponin T Gen 5) concentration [...] Manuel Leary MD CHEMISTRY Final R esult [facility]AL LABORATORY [address] [place] [address], [place] * SCAN-CARDIAC STRIP (08/12/2024 7:36 AM SOD FARMER) us Scanner OTHER Final Result * SCAN-CARDIAC STRIP (08/12/2024 4:15 AM SOD FARMER) us Scanner OTHER Final Result * XR hip 2 or 3 views w/pelvis RIGHT (08/11/2024 7:55 PM SOD FARMER) Anatomical Region Laterality Modality HIPS, HIPR, Pelvis Digital Radio graphy 08/11/2024 9:01 PM SOD FARMER Narrative 08/11/2024 9:01 PM SOD FARMER For Patients: As a result of the [...] RIGHT 3 views TODAY (08/11/2024 7:55 PM SOD FARMER) Anatomical Region Laterality Modality SHOULDERS, SHOULDER R Digital Ra diography 08/11/2024 9:02 PM SOD FARMER Narrative 08/11/2024 9:02 PM SOD FARMER For Patients: As a result of the [...] esult * SCAN-CARDIAC STRIP (08/11/2024 5:28 PM SOD FARMER) us Scanner OTHER Final Result * CT Cervical spine without contrast TODAY (08/11/2024 5:16 PM SOD FARMER) Anatomical Region Laterality Modality CERVICAL SPINE, NECK, Spine Comp uted Tomography 08/11/2024 6:07 PM SOD FARMER Impressions 08/11/2024 6:07 PM SOD FARMER 1. No acute fractures or other acute osseous abnormalities. 2. C5 through C7 ACDF without complication. Please note that all CT scans at this facility use dose modulation, iterative reconstruction, and/or weight-based dosing when appropriate to reduce radiation dose to as low as reasonably achievable. Dictated by Erik Aponte MD @ 08/11/2024 6:07:02 PM (Electronically Signed) Narrative 08/11/2024 6:07 PM SOD FARMER For Patients: As a result of the [...] CT head without contrast (08/11/2024 5:08 PM SOD FARMER) Anatomical Region Laterality Modality HEAD, BRAIN Computed Tomogra phy 08/11/2024 6:09 PM SOD FARMER Impressions 08/11/2024 6:09 PM SOD FARMER IMPRESSION:1. No CT evidence of acute cortical infarct. No acute intracranial hemorrhage. No other acute intracranial findings. Please note that all CT scans at this facility use dose modulation, iterative reconstruction, and/or weight-based dosing when appropriate to reduce radiation dose to as low as reasonably achievable. Dictated by Erik Aponte MD @ 08/11/2024 6:09:40 PM (Electronically Signed) Narrative 08/11/2024 6:09 PM SOD FARMER For Patients: As a result of the [...] esult * SCAN-CARDIAC STRIP (08/11/2024 7:23 AM SOD FARMER) us Scanner OTHER Final Result * SCAN-CARDIAC STRIP (08/11/2024 5:57 AM SOD FARMER) us Scanner OTHER Final Result * SCAN-CARDIAC STRIP (08/10/2024 10:30 AM SOD FARMER) us Scanner OTHER Final Result * SCAN-CARDIAC STRIP (08/10/2024 6:22 AM SOD FARMER) us Scanner OTHER Final Result * CT Chest without contrast (08/09/2024 9:05 AM SOD FARMER) Anatomical Region Laterality Modality CHEST, THORAX, HEART Computed To mography 08/09/2024 3:10 PM SOD FARMER Impressions 08/09/2024 3:10 PM SOD FARMER 1. Small bilateral pleural effusions. 2. No [...] PM (Electronically Signed) Narrative 08/09/2024 3:10 PM SOD FARMER For Patients: As a result of the [...] esult * SCAN-CARDIAC STRIP (08/09/2024 8:34 AM SOD FARMER) us Scanner OTHER Final Result * XR CHEST 1 VIEW PORTABLE (08/08/2024 12:34 PM SOD FARMER) Anatomical Region Laterality Modality HEART, THORAX, CHEST Digital Rad iography 08/08/2024 12:5 2 PM SOD FARMER Addenda Addendum by Buzz Albright MD, PhD on 08/08/2024 12:53 PM SOD FARMER For Patients: As a result of the [...] PM (Electronically Signed) Narrative 08/08/2024 12:45 PM SOD FARMER Indication: Shortness of breath. Comparison: Chest x-ray [...] Final * SCAN-CARDIAC STRIP (08/08/2024 9:57 AM SOD FARMER) us Scanner OTHER Final Result * (ABNORMAL) Creatinine FOR ADD ON (08/08/2024 7:31 AM SOD FARMER) Only the most recent of4 resultswithin the time period is included. eGFR 64(L) >90 mL/min/1.7 3m2 08/08/2024 9:02 AM SOD FARMER [facility] Comment:As of 2021, eG FR is calculated by the CKD-EPI creatinine equation without race adjustment. eGFR can be influenced by muscle mass, exercise, and diet. The reported eGFR is an estimation only and is only applicable if the renal function is stable. CREATININE 1.23(H) 0.70 - 1.20 mg/dL 08/08/2024 9:02 AM SOD FARMER [employer] [facility] Blood BLOOD SPECIMEN / Unknown Venipuncture / Unknown 08/08/2024 7:31 AM SOD FARMER 08/08/2024 7:41 AM SOD FARMER us Anel Fitzgerald MD CHEMISTRY Final R esult Performing Organization Address [facility] Co de Phone Number [facility] [address] [address], [place] * SCAN-CARDIAC STRIP (08/08/2024 5:54 AM SOD FARMER) us Scanner OTHER Final Result * WBC TODAY (08/08/2024 12:02 AM SOD FARMER) Pathologist [facility] WHITE BLOOD COUNT 7.6 4.5 - 11.0 thou/cu mm 08/08/2024 12:18 AM SOD FARMER [facility] NRBC 0.0 % 08/08/2024 12:18 AM SOD FARMER [facility] ABS NRBC 0.0 thou /cu mm 08/08/2024 12:18 AM SOD FARMER [facility] Blood BLOOD SPECIMEN / Unknown Venipuncture / Unknown 08/08/2024 12:02 AM SOD FARMER 08/08/2024 12:15 AM SOD FARMER us Marion Jansen MD HEMATOLOGY Final Resul t Performing Organization Address [facility] de Phone Number [facility] [address] [address], [place] * US Venous doppler RIGHT upper extremity (08/07/2024 4:16 PM SOD FARMER) Anatomical Region Laterality Modality ARMS, ARM R Ultrasound 08/07/2024 4:38 PM SOD FARMER Impressions 08/07/2024 4:38 PM SOD FARMER 1. Superficial thrombophlebitis within the mid basilic vein with minimal encroachment of the basilic/brachial junction without evidence of definite extension of the thrombus into the deep system. Dictated by Gulshan Mckinney MD @ 08/07/2024 4:38:01 PM (Electronically Signed) Narrative 08/07/2024 4:38 PM SOD FARMER For Patients: As a result of the [...] * MR CARDIAC WWO (08/07/2024 1:06 PM SOD FARMER) Anatomical Region Laterality Modality HEART, THORAX Magnetic Resonan ce 08/07/2024 11:4 8 AM SOD FARMER Narrative 08/07/2024 12:59 PM SOD FARMER [facility] CMR Report Name: HARRY LUNA : Scan Date: Accession Number: [id number] Status: Final Electronically signed by Anthony Allred [...] Anterior Base Anteroseptal Base Inferoseptal 1-25% Sub-Endo LA Base Inferior 1-25% Sub-Endo LA Base Inferolateral 26-50% Sub-Endo LA Base Anterolateral Mid Anterior Mid Anteroseptal Mid Inferoseptal Mid Inferior Mid Inferolateral 51-75% Transmural LA Mid Anterolateral 51-75% Transmural LA Apical Anterior Apical Septal Apical Inferior Apical Lateral [place] + + + + +------ ----- -----+ RV Segments Wall Motion Hyperenhancement Interpretation + + + + +------ ----- -----+ RV Basal Anterior RV Basal Inferior RV Mid RV Apical ' + + + +------ ----- -----' FINDINGS LV SCAR SIZE (17 SEGMENT): 11 % ADDITIONAL FINDINGS: Posteromedial papillary muscle. SCAN INFO ===== GENERAL ----- --- SCANNER PRESTRESSED CONCRETE LABORER: SIEMENS MODEL: Aera CONTRAST AGENT TYPE: Gadavist GD CONCENTRATION: 1.0 M SETUP REASON(S) FOR SCAN: Ischemic vs nonischemic REFERRING PHYSICIAN: AJ ANN ATTENDING PHYSICIAN: ANEL FITZGERALD BILLING ===== Patient Account [id number] Report generated by [employer], a product of [employer] Procedure Note Anthony Allred MD - 08/07/2024 [facility] CMR Report Name: HARRY LUNA : Scan Date: Accession Number: [id number] Status: Final Electronically signed by Anthony Allred [...] Anterior Base Anteroseptal Base Inferoseptal 1-25% Sub-Endo LA Base Inferior 1-25% Sub-Endo LA Base Inferolateral 26-50% Sub-Endo LA Base Anterolateral Mid Anterior Mid Anteroseptal Mid Inferoseptal Mid Inferior Mid Inferolateral 51-75% Transmural LA Mid Anterolateral 51-75% Transmural LA Apical Anterior Apical Septal Apical Inferior Apical Lateral [place] + + + + +------ ----- -----+ RV Segments Wall Motion Hyperenhancement Interpretation + + + + +------ ----- -----+ RV Basal Anterior RV Basal Inferior RV Mid RV Apical ' + + + +------ ----- -----' FINDINGS LV SCAR SIZE (17 SEGMENT): 11 % ADDITIONAL FINDINGS: Posteromedial papillary muscle. SCAN INFO ===== GENERAL ----- --- SCANNER PRESTRESSED CONCRETE LABORER: SIEMENS MODEL: Aera CONTRAST AGENT TYPE: Gadavist GD CONCENTRATION: 1.0 M SETUP REASON(S) FOR SCAN: Ischemic vs nonischemic REFERRING PHYSICIAN: AJ ANN ATTENDING PHYSICIAN: ANEL FITZGERALD BILLING ===== Patient Account [id number] Report generated by [employer], a product of [employer] us Temi Ma PALLETIZER OPERATOR MR Final Res ult * SCAN-CARDIAC STRIP (08/07/2024 8:44 AM SOD FARMER) us Scanner OTHER Final Result * SCAN-CARDIAC STRIP (08/06/2024 8:50 PM SOD FARMER) us Scanner OTHER Final Result * SCAN-CARDIAC STRIP (08/06/2024 10:30 AM SOD FARMER) us Scanner OTHER Final Result * CVL CORONARY ANGIOGRAM POSS PCI (08/06/2024 9:22 AM SOD FARMER) Anatomical Region Laterality Modality Other 08/06/2024 9:22 AM SOD FARMER Narrative Transcriptions Jose Manuel Amado MD - 08/06/2024 10:01 AM CST [facility] Cardiac Catheterization Report Name: HARRY LUNA Event Date: 08/06/2024 09:22 Emmanuelian ID #: [id number] FAY #: [id number] Patient Class: Inpatient Diagnostic Physician: JOSE MANUEL AMADO [facility] Interventional Physician: JOSE MANUEL AMADO [facility] Referring Physician: Lakesha Khan Date: 1955 Gender: [...] with+iFR would consider surgical revascularization. Consent & Sheridan Protocol The risks, benefits, and alternatives of the procedure were discussed withthe patient and written informed consent was obtained. Sheridan protocol was followed. TIME OUT conducted just prior tostarting procedure confirmed patient identity, site/side, procedure,patient position, and availability of correct equipment and implants (ifapplicable). Staff Name Title JOSE MANUEL AMADO Diagnostic Rehab Aid Eliezer Betancourt RN Nurse Padmini Alva CVT Scrub Shantal Hammond CVT Monitor JOSE MANUEL AMADO Hadoop Application Developer Procedures ? Femoral Angio for Possible Closure [...] RCA Pressure Wire Wire Pressure Guide OMNIwire [id number]> 2 Proximal LAD Pressure Wire Wire Pressure Guide OMNIwire [id number]> 3 1st Diagonal Pressure Wire Wire Pressure Guide OMNIwire [id number]> Procedure Details Estimated Blood Loss: < 30 [...] healthcare professional providing the sedation ends personal gkqgxlygljlsai-wr-eznl time with the patient. The medications listed above were verbally ordered by me and read back tome as documented above. Refer to the procedure log report for additional case details. electronically signed on 08/06/2024 10:01:55 AM with status of Final Jose Manuel Amado MD [facility] [address] [id number] (p) [phone](f) us Provider Referring CV IMAGING Edited Result - Final * Sodium AM (08/06/2024 6:44 AM SOD FARMER) Only the most recent of2 resultswithin the time period is included. SODIUM 138 136 - 145 mmol/L 08/06/2024 7:27 AM SOD FARMER [facility] Blood BLOOD SPECIMEN / Unknown Venipuncture / Unknown 08/06/2024 6:44 AM SOD FARMER 08/06/2024 7:00 AM SOD FARMER us Anel Fitzgerald MD CHEMISTRY Final R esult [facility] [address] [place] [address], * SCAN-CARDIAC STRIP (08/06/2024 3:05 AM SOD FARMER) us Scanner OTHER Final Result * (ABNORMAL) TROPONIN T (HS) ACUTE W/2HR REFLEX - WOOD FENCE INSTALLER (08/05/2024 9:33 PM SOD FARMER) Only the most recent of3 resultswithin the time period is included. TROPONIN T HS 172(H) 6-15 ng/L ng/L 08/05/2024 10:[address] [facility] Blood BLOOD SPECIMEN / Unknown Venipuncture / Unknown 08/05/2024 9:33 PM SOD FARMER 08/05/2024 9:39 PM SOD FARMER [facility] LAB[facility] - 08/05/2024 10:02 PM [facility] hs-cTnT (Elecsys Troponin T Gen 5) concentration [...] Anel Fitzgerald MD CHEMISTRY Final R esult [facility] [address] [place] [address], [place] * XR CHEST 2 VIEWS PA AND LATERAL (08/05/2024 10:42 AM SOD FARMER) Only the most recent of2 resultswithin the time period is included. Anatomical Region Laterality Modality CHEST, THORAX, Lung, HEART Digit al Radiography 08/05/2024 10:5 6 AM SOD FARMER Impressions 08/05/2024 10:56 AM SOD FARMER 1. No change in small pleural effusions. 2. No acute lung infiltrate. Dictated by Jordy Akhtar MD @ Aug 05 2024 10:56AM (Electronically Signed) [email or web address] Narrative 08/05/2024 10:56 AM SOD FARMER For Patients: As a result of the [...] @ Aug 05 2024 10:56AM (Electronically Signed) [email or web address] us Anel Fitzgerald MD GENERAL IMAGING Final R esult * SCAN-CARDIAC STRIP (08/05/2024 8:11 AM SOD FARMER) us Scanner OTHER Final Result * SCAN-CARDIAC STRIP (08/05/2024 8:11 AM SOD FARMER) us Scanner OTHER Final Result * SCAN-CARDIAC STRIP (08/05/2024 8:11 AM SOD FARMER) us Scanner OTHER Final Result * TSH (08/05/2024 6:09 AM SOD FARMER) TSH 1.72 0.27 - 4.20 uIU/mL 08/05/2024 7:07 AM SOD FARMER [facility] Blood BLOOD SPECIMEN / Unknown Butterfly / Unknown 08/05/2024 6:09 AM SOD FARMER 08/05/2024 6:23 AM SOD FARMER Narrative [facility] - 08/05/2024 7:07 AM SOD FARMER In Adults, TSH values between 5.00 and 10.00 uIU/ml do not necessarily indicate the presence of Hypothyroidism. Correlation with clinical findings such as presence of goiter and/or Thyroperoxidase (TPO) Antibody may be helpful. For more information please refer to DELGADO 2004; 291: 228-238. us Temi Ma NP CHEMISTRY Final Res ult [facility] [address] [place] [address], * (ABNORMAL) IRON PLUS IRON BINDING CAP (08/05/2024 6:09 AM SOD FARMER) Pathologist [facility] IRON 28(L) 61 - 157 ug/dL 08/05/2024 7:07 AM SOD FARMER [facility] UIBC (UNSATURATED) 274 112 - 347 ug/dL 08/05/2024 7:07 AM SOD FARMER [facility] IRON BINDING CAPACITY 302 250 - 400 ug/dL 08/05/2024 7:07 AM SOD FARMER [facility] IRON,% SATURATION 9(L) 14 - 50 % 08/05/2024 7:07 AM SOD FARMER [facility] Blood BLOOD SPECIMEN / Unknown Butterfly / Unknown 08/05/2024 6:09 AM SOD FARMER 08/05/2024 6:23 AM SOD FARMER Temi Ma PALLETIZER OPERATOR CHEMISTRY Final Res ult Performing Organization Address [facility] Co de Phone Number [facility] [address] [place] [address], [place] * ANTI HIV 1/2 (08/05/2024 6:09 AM SOD FARMER) HIV-1/HIV-2 SCREEN Non-Reacti ve Non-Reacti ve 08/05/2024 7:48 AM SOD FARMER [facility] Comment:HIV-1 p24 and HIV-1/ HIV-2 Ab Not Detected. Blood BLOOD SPECIMEN / Unknown Butterfly / Unknown 08/05/2024 6:09 AM SOD FARMER 08/05/2024 6:23 AM SOD FARMER Temi Ma PALLETIZER OPERATOR SEND OUTS Final Res ult Performing Organization Address [facility] de Phone Number [facility] [address] [place] [address], [place] * SCAN-CARDIAC STRIP (08/05/2024 2:22 AM SOD FARMER) us Scanner OTHER Final Result * SCAN CORRESP-EKG RESULTS (08/04/2024 10:27 AM SOD FARMER) Narrative 08/04/2024 10:27 AM SOD FARMER Ordered by an unspecified provider. us Other Clinical Staff OTHER Final Resul t * SCAN CORRESP-IMAGING (08/04/2024 10:27 AM SOD FARMER) Anatomical Region Laterality Modality Other Narrative 08/04/2024 10:27 AM SOD FARMER Ordered by an unspecified provider. us Other Clinical Staff OTHER Final Resul t * SCAN-CARDIAC STRIP (08/04/2024 10:15 AM SOD FARMER) us Scanner OTHER Final Result * (ABNORMAL) HEPATIC FUNCTION PANEL (08/04/2024 6:13 AM SOD FARMER) ALBUMIN 3.4(L) 4.0 - 4.9 g/dL 08/04/2024 12:31 PM SOD FARMER [facility] TRAL LABORATORY PROTEIN,TOTAL 6.5 6.0 - 8.0 g/dL 08/04/2024 12:31 PM SOD FARMER [facility] TRAL LAB[facility] BILIRUBIN,TOTAL 1.1 0.0 - 1.2 mg/dL 08/04/2024 12:31 PM SOD FARMER [facility] TRAL LAB[facility]ORY BILIRUBIN,DIRECT 0.6(H) 0.0 - 0.2 mg/dL 08/04/2024 12:31 PM SOD FARMER [facility] TRA LABORATORY BILIRUBIN,INDIRE CT 0.5 0.2 - 0.8 mg/dL 08/04/2024 12:31 PM SOD FARMER [facility] TRAL LABORATORY ALK PHOSPHATASE 45 40 - 129 IU/L 08/04/2024 12:31 PM SOD FARMER [facility] TRA LABORATORY ALT (SGPT) 17 10 - 50 IU/L 08/04/2024 12:31 PM SOD FARMER [facility] AST (SGOT) 24 10 - 50 IU/L 08/04/2024 12:31 PM SOD FARMER [facility] Blood BLOOD SPECIMEN / Unknown Venipuncture / Unknown 08/04/2024 6:13 AM SOD FARMER 08/04/2024 6:27 AM SOD FARMER us Allie Soriano NP CHEMISTRY Fin al Result [facility] [address] [place] [address], [place] * SCAN-CARDIAC STRIP (08/03/2024 4:20 PM SOD FARMER) us Scanner OTHER Final Result * COVID/FLU/RSV PANEL (08/03/2024 1:30 PM SOD FARMER) Pathologist [facility] COVID 19 [place] MOLECULAR Negative Negative 08/03/2024 3:47 PM SOD FARMER [facility] Comment:All PCR tests are ram bject to false negative result due to variability in viral load and collection technique. A negative result does not rule out a SARS-CoV-2 infection. Clinical correlation required. INFLUENZA A PCR Negative 4 3:47 PM SOD FARMER [facility] TRA LABORATORY INFLUENZA B PCR Negative 3:47 PM SOD FARMER [facility] Respiratory Syncytial Virus Negative 08/03/2024 3:47 PM SOD FARMER [facility] Swab NASOPHARYNGEAL SWAB / Unknown Non-Blood / Unknown 08/03/2024 1:30 PM SOD FARMER 08/03/2024 1:39 PM SOD FARMER Anel Fitzgerald MD MICROBIOLOGY Final R esult [facility] [address] [place] [address], * (ABNORMAL) COMPREHENSIVE BLOOD GAS MIXED VENOUS (08/03/2024 11:51 AM SOD FARMER) Pathologist [facility] O2 SATURATION, MEASURED, MIXED VENOUS 56(L) 70 - 75 % 08/03/2024 11:51 AM SOD FARMER [facility] PATIENT TEMPERATURE 37.0 Degrees C 08/03/2024 11:51 AM SOD FARMER [facility] COLLECTION SITE PULMONARY ARTERY 08/03/2024 11:51 AM SOD FARMER [facility] HEMOGLOBIN,BLOO D GAS 11.7(L) 13.5 - 17.5 g/dL 08/03/2024 11:51 AM SOD FARMER [facility] Blood BLOOD SPECIMEN / Unknown 08/03/2024 11:51 AM SOD FARMER 08/08/2024 8:54 PM SOD FARMER us Anel Fitzgerald MD CHEMISTRY Final R esult [facility]AL LABOR[facility] [address] [place] [address], * CVL CORONARY ANGIOGRAM POSS PCI (08/03/2024 11:23 AM SOD FARMER) Anatomical Region Laterality Modality Other 08/03/2024 11:2 3 AM SOD FARMER Narrative Transcriptions Jose Manuel Amado MD - 08/03/2024 12:33 PM CST [facility] Cardiac Catheterization Report Name: HARRY LUNA Event Date: 08/03/2024 11:23 Excellian ID #: [id number] FAY #: [id number] Patient Class: Inpatient Diagnostic Physician: JOSE MANUEL AMADO [facility] Interventional Physician: JOSE MANUEL AMADO [facility] Referring Physician: Aj Ann Date: 1955 Gender: [...] brachytherapy or Drug-Coated Balloon therapy Consent & Sheridan Protocol The risks, benefits, and alternatives of the procedure were discussed withthe patient and written informed consent was obtained. Sheridan protocol was followed. TIME OUT conducted just prior tostarting procedure confirmed patient identity, site/side, procedure,patient position, and availability of correct equipment and implants (ifapplicable). Staff Name Title JOSE MANUEL AMADO Diagnostic Rehab Aid Marva Palacios Fellow Yenni Mireles RN Nurse Moris Sy CVT Scrub Abdi Sultana CVT Monitor JOSE MANUEL AMADO Hadoop Application Developer Procedures ? Ultrasound Guided Vascular Access ? [...] Estimated River Index: 2.12 l/min/m2 Resistances PVR: [id number] PVR Index: 528.63 SVR: [id number] SVR Index: 3285.03 PVR/SVR: 0.16 Blood Flow [...] Saud 3.0x15mm 1 Mid RCA Balloon BLLN Morrison CB MR [id number] Procedure Details Estimated Blood Loss: < 30 ml Specimen Collected: None Level of Sedation Achieved: Mild Procedure Start: 11:23 Procedure End: 12:23 Procedure Time: 60 min Fluoroscopy Time: 19.2 min Cumulative Air Kerma: 1372 mGy DAP: 60357 uGy/M2 Contrast: Omnipaque (low-osmolar), 85 ml Physiologic [...] healthcare professional providing the sedation ends personal gumcszsgxzkxwg-pw-kvww time with the patient. The medications listed above were verbally ordered by me and read back tome as documented above. Refer to the procedure log report for additional case details. electronically signed on 08/03/2024 12:33:59 PM with status of Final Jose Manuel Amado MD [facility] [address] [place] [address] (p) [phone](f) us Provider Referring CV IMAGING Edited Result - Final * (ABNORMAL) APTT (08/03/2024 7:42 AM SOD FARMER) Only the most recent of3 resultswithin the time period is included. APTT 47(H) 25 - 36 sec 08/03/2024 8:10 AM SOD FARMER [facility] Blood BLOOD SPECIMEN / Unknown Butterfly / Unknown 08/03/2024 7:42 AM SOD FARMER 08/03/2024 7:47 AM SOD FARMER Narrative [facility] - 08/03/2024 8:10 AM SOD FARMER Therapeutic Range: 59-89 seconds Leopoldo Velasco MD HEMATOLOGY Final Result [facility] [address] [place] [address], * (ABNORMAL) LIPID PANEL (08/02/2024 8:07 PM SOD FARMER) CHOLESTEROL,TOTAL 95(L) 100 - 199 mg/dL 08/03/2024 3:14 PM SOD FARMER [facility] Comment: Cholesterol, Total Reference Ranges Desirable <200 mg/dL Borderline 200-239 mg/dL High >=240 mg/dL TRIGLYCERIDES 95 <150 mg/dL 08/03/2024 3:14 PM SOD FARMER [facility] TRAL [facility]AT[facility] HDL CHOLESTEROL 44 >40 mg/dL 3:14 PM SOD FARMER [facility] NON-HDL CHOLESTEROL 51 <145 mg/dl 08/03/2024 3:14 PM SOD FARMER [facility] CHOL/HDL RATIO 2.16 <4.50 08/03/2024 3:14 PM SOD FARMER [facility] LDL CHOLESTEROL 32 <=130 mg/dL 08/03/2024 3:14 PM SOD FARMER [facility] VLDL CHOLESTEROL 19 <=30 mg/dL 08/03/20 3:14 PM SOD FARMER [facility] Blood BLOOD SPECIMEN / Unknown Venipuncture / Unknown 08/02/2024 8:07 PM SOD FARMER 08/02/2024 8:13 PM SOD FARMER us Allie Soriano NP CHEMISTRY Fin al Result Performing Organization Address [facility]/ZIP Co de Phone Number [facility] [address] [place] [address], * SCAN-CARDIAC STRIP (08/02/2024 5:35 PM SOD FARMER) us Scanner OTHER Final Result * BUN (08/02/2024 2:27 PM SOD FARMER) BUN 19 8 - 23 mg/dL 08/02/2024 3:01 PM SOD FARMER [facility] Blood BLOOD SPECIMEN / Unknown Venipuncture / Unknown 08/02/2024 2:27 PM SOD FARMER 08/02/2024 2:34 PM SOD FARMER Luis Manuel Leary MD CHEMISTRY Final R esult Performing Organization Address [facility] Co de Phone Number [facility] [address] [place] [address], * PROTIME-INR (08/02/2024 2:27 PM SOD FARMER) INR 1.1 <1.3 08/02/2024 2:46 PM SOD FARMER [facility] PROTIME 12.2 10.6 - 12.4 sec 08/02/2024 2:46 PM SOD FARMER [facility] Blood BLOOD SPECIMEN / Unknown Venipuncture / Unknown 08/02/2024 2:27 PM SOD FARMER 08/02/2024 2:34 PM SOD FARMER Narrative [facility] - 08/02/2024 2:46 PM SOD FARMER Therapeutic Range 2.0-3.0 for most anticoagulated patients [...] Manuel Leary MD HEMATOLOGY Final R esult [facility] [address] [place] [address], * ANTI HCV (04/16/2017 9:14 AM CDT) HEPATITIS C ANTIBODY Non-Reacti ve Non-Reacti ve 04/16/2017 3:42 PM CDT [facility] Blood BLOOD SPECIMEN / Unknown Venipuncture / Unknown 04/16/2017 9:14 AM CDT 04/16/2017 9:17 AM CDT Narrative [facility] - 04/16/2017 3:42 PM CDT Antibodies to HCV not detected; does not exclude the possibility of exposure to HCV. us Jakub Soliz MD SEND OUTS Final Result Performing Organization Address City/[facility]/ZIP Co de Phone Number [facility] [address] [place] [address], from Last 3 Months or Most Recently Relevant to Health Maintenance Insurance [place] [address] MEDICARE PART A HB ONLY [facility] PPS CBCS NON CORVEL [address] MR Advance Directives * Full Code [...] Code Status Discussion: Reviewed Preferences Care Teams Broadcast Operations Director Relationship Specialty Start Date End Date Lakesha Khan MD [address] [place] [address] PCP - General Family Practice 04/30/22 [facility], [facility] [address] [address] Cardiology - CHF 06/28/23 [facility] [address] [place] [address] 08/15/24
--- OUTSIDE RECORDS SUMMARY | 2024-10-24 21:14 | XMS_ITS | Clinical Summary ---
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 Immunizations No information available. Advance Directives No information available.
== END 2024-10-24 21:40 | disposition home or self-care (01) ==
PROVIDERS: Emergency Provider Family Medicine; PCP Family Medicine
DX: R07.9 Chest pain, unspecified (principal); F41.9 Anxiety disorder, unspecified
CPT/HCPCS: 36415; 71045; 80048; 80076; 84484; 85025; 85379; 86140; 93005; 94761; 96374; 96375; 99284; 99285; J1885; J2060

== ENCOUNTER 2025-02-04 10:00 | Outpatient (RCR) | payer MEDICARE, SELFPAY | END 2025-06-04 23:59 | disposition home or self-care (01) | PROVIDERS: PCP Family Medicine; Visit Provider Family Medicine | DX: Z48.89 Encounter for other specified surgical aftercare (principal); S42.114D Nondisplaced fracture of body of scapula, right shoulder, subsequent encounter for fracture with routine healing; R07.81 Pleurodynia; M77.8 Other enthesopathies, not elsewhere classified; M75.51 Bursitis of right shoulder; M50.30 Other cervical disc degeneration, unspecified cervical region; M47.812 Spondylosis without myelopathy or radiculopathy, cervical region; Z98.1 Arthrodesis status; Z51.89 Encounter for other specified aftercare | CPT/HCPCS: 97110; 97112; 97140; 97162; 97164 ==

== ENCOUNTER 2025-02-16 19:18 | Emergency (ER) | payer MEDICARE, SELFPAY ==
--- OUTSIDE RECORDS SUMMARY | 2009-03-01 04:22 | XMS_ITS | Continuity of Care Document ---
Author Organization [facility] Address [address] [address] [place] [address] Phone Care Team Providers Care Funeral Location Manager Name Role Phone Unavailable Unavailable Unavailable Allergies, [...] Diagnoses Date Provider Providers Copied on Encounter [facility], [address] [address], [place], [id number], [place] tel:[phone] [facility] Podiatry No Information No Information [facility], [address] [address], [place], [id number], tel:[phone] [facility] 1st Care f/u gr toe procedure (chief complaint) No Information No Information Offic/outpt E m [facility], [facility], [address] [address], [place], [place], [id number], [place] tel:[phone] [facility] 1st Care Left great toe drainage/re dness (chief complaint) No Information No Information Family History Family Member Type Diagnosis Age At Onset No Information Payers Payer name Insurance type Covered democrat ID Authoriza tion(s) No Information Social History [...]
--- OUTSIDE RECORDS SUMMARY | 2009-03-01 04:22 | XMS_ITS | Continuity of Care Document ---
Author Organization [employer] [facility] Address [address] [address] [place] [address] Phone Care Team Providers Care Information Systems Security Analyst Name Role Phone Unavailable Unavailable Unavailable Allergies, [...] Diagnoses Date Provider Providers Copied on Encounter [facility], [address] [address], [place], [id number], [place] tel:[phone] [facility] Podiatry No Information No Information [employer] [facility], [address] [address], [place], [id number], tel:[phone] [facility] 1st Care f/u gr toe procedure (chief complaint) No Information No Information Offic/outpt E m [facility], [facility], [address] [address], [place], [place], [id number], [place] tel:[phone] [facility] 1st Care Left great toe drainage/re dness (chief complaint) No Information No Information Family History Family Member Type Diagnosis Age At Onset No Information Payers Payer name Insurance type Covered libertarian ID Authoriza tion(s) No Information Social History [...]
[2025-02-16] VITALS (48 sets, daily range): BP systolic 84–124; BP diastolic 56–80; PULSE 102–112; RESP 0–29; TEMP 36.9; O2SAT 91–97; BMI 30.8
--- OUTSIDE RECORDS SUMMARY | 2025-02-16 19:21 | XMS_ITS | Data Portability ---
Author Organization [place] - [facility], [employer] Address [address] [place] [address] Assessment Encounter Date Assessment Date Assessment LastModified by Organization Details LastModified Time 10/12/2024 10/12/2024 Discussed medica l conditions with patient today. Procedure site appears to be healing uneventfully with no signs of infection on exam. At this time, patient may discontinue foot soaks and triple antibiotic ointment/Band-Aid application. I explained that the toenail would grow back over the next 8 10 months. I instructed the patient to monitor for any signs of redness, swelling, or infection and to contact our office immediately if concerns arise. Patient verbalized understanding and is in agreement with the above treatment plan. Not available 10/13/2024 14:24:19 11/24/2024 11/24/2024 Educated patient on the etiology, prognosis, treatment options for diabetic foot ulcerations. For the right hallux ulceration, debridement was performed as documented. No SOI appreciated on exam today. Betadine was recommended for daily application to keep the area dry and reduce the risk of infection. The patient was advised to keep the area covered with dressings, which he states that his is comfortable applying. A surgical shoe was dispensed to offload pressure from the affected area. The patient was instructed to avoid wearing his current shoes until the area has healed. Follow-up was scheduled for one week to monitor healing progress. The patient was advised to seek immediate care if signs of infection, such as redness, fever, or increased pain, develop. Patient was properly sized and dispensed a surgical shoe ([id number]). Patient qualifies and will benefit from the device as this area will require stabilization for ulcer healing and has the potential to benefit functionally. Goal of therapy for utilization of the surgical shoe includes improved mobility, improve lower extremity stabilization, decreased pain and to facilitate immobilization for healing of soft tissues. Device is required as there is need to control motion and more than one plane and there is a need to limit range of motion of one or more joints of the lower extremity. Not available 11/24/2024 15:02:05 12/01/2024 12/01/2024 Discussed medica l conditions with patient today. For the right hallux ulcer, the area appears to have healed with no signs of infection appreciated. Recommended continuation of current wound care regimen, including daily betadine application and protective dressing, for an additional week to allow the skin to strengthen and prevent recurrence. Advised to maintain use of the surgical shoe to minimize pressure on the area. Instructed the patient to bring his new diabetic shoes to the next appointment for evaluation and fitting, as the ulcer likely developed secondary to pressure from worn-out footwear. Scheduled follow-up in one week to reassess the site and diabetic footwear. Clinical reasoning for the above plan is based on the observation that the ulcer is now fully epithelialized, but the risk of recurrence remains high if pressure is not adequately managed and the skin is not allowed sufficient time to strengthen. The patient s history of diabetes and prior ulceration necessitates a cautious approach to footwear transition and ongoing surveillance. Patient verbalized understanding and is in agreement with the above treatment plan. Not available 12/01/2024 14:21:33 12/08/2024 12/08/2024 Discussed medica l conditions with patient today. For the history of right hallux ulcer, which remained healed, the patient was advised to transition from the surgical shoe to his [employer] shoe, as the previous ulcer site remains stable and fully healed. Emphasized the importance of proper shoe fit to prevent recurrence, and instructed him to discard any old, ill-fitting footwear. Reinforced daily foot inspection and to monitor for any signs of skin breakdown, redness, or drainage. Scheduled follow-up in two to three weeks for continued surveillance, with instructions to call sooner if any new symptoms or concerns arise. For long-term use of therapeutic footwear, confirmed that the patient has adequate supply and appropriate fit of his current devices. Patient verbalized understanding and is in agreement with the above treatment plan. Not available 12/09/2024 12:26:03 12/29/2024 12/29/2024 Discussed medica l conditions with patient today. History of ulceration, right hallux currently healed with callus formation: The area was monitored for signs of recurrence or infection. Sharp debridement of the callus was performed to reduce pressure and prevent re-ulceration. Patient was advised to continue daily inspection and keep the area dry. Debrided nails and calluses without incident as documented. Recommended continued use of supportive shoegear and to monitor for injury and infection. Recommended regular follow-up to prevent complications and to manage pain due to thick, elongated nails and any callus formation. All questions answered. The patient was encouraged to call with any questions or concerns. Patient will follow up in 9-10 weeks for high risk foot care or sooner if needed. Patient verbalized understanding and is in agreement with the above treatment plan. Not available 12/29/2024 15:53:35 Plan of Treatment Reminders Order Date Submit Date Provider Last Modified By Organization Details Last Modified Time Details Appointments [facility] 15 2024 11:15A M BIENVENIDO WHITTAKER DPM Not available Not available Not available Lab None recorded. Referral None recorded. Procedures None recorded. Surgeries None recorded. Imaging None recorded. Medication Orders None recorded. Patient TargetsNo targets recorded. Patient InstructionsNo instructions recorded. Reason for Referral None Reported. Problems Name Problem SNOMED Code Status Onset Date Resolution Date Notes Provider Name and Address Organization Details Recorded Time Diabetic care Active [address] Khan 11/03 [facility] Maida story [facility] 10:23:27 Problem Notes None recorded. Procedures Surgical History Date Name Laterality Status Provider Name and Address Organization Details Recorded Time 12/29/2024 NAIL/Callus DEBRIDEMENT completed BIENVENIDO WHITTAKER DPM [address] [place], [address], [facility] 12/29/2024 15:49:38 11/24/2024 Ulcer Care completed BIENVENIDO WHITTAKER DPM [address] [place], [address], [facility] 11/24/2024 14:17:27 09/01/2024 mkmI&D completed BIENVENIDO WHITTAKER DPM [address] [place], [address], [facility] - [facility] 09/01/2024 11:01:00 Imaging Results None recorded. Procedure Notes None recorded. Medical Equipment None Reported. Allergies Allergen ID Allergen Name Allergen Category Reaction Reaction Severity Criticality Documentation Date Start Date Code Code System Note Provider Name and Address Organization Details Recorded Time 68755 oxycodone medicatio n Not available Not available Not available 10/13/2024 7804 RxNorm Maida Lorenzo null, [place] - [facility] 5 10:34:02 00919 acetamino phen / oxycodone medicatio n Not available Not available Not available 10/13/2024 43567 3 RxNorm Maida Lorenzo null, [place] - [facility] 5 10:34:12 59200 propoxyph dewayne medicatio n Not available Not available Not available 10/13/2024 8785 RxNorm Maida Lorenzo null, [place] - [facility] 5 10:34:24 17444 Darvocet- N medicatio n Not available Not available Not available 10/13/2024 19750 UNK Maida Lorenzo null, [place] - [facility] 5 10:34:34 54301 bupropion Not available Not available Not available Not available 10/13/2024 81763 RxNorm Maida Lorenzo null, [place] - [facility] 5 10:34:45 92319 Wellbutri n medicatio n Not available Not available Not available 10/13/2024 22614 RxNorm Maida Lorenzo null, [place] - [facility] 5 10:34:53 Medications Name Sig Start Date Stop Date Status Note LastModified by Organization Details LastModified Time atorvastati n 40 mg tablet TAKE ONE TABLET BY MOUTH ONE TIME DAILY AT BEDTIME* active Not Available Not Available No t Available prednisone 10 mg tablet Take 2 Tablets (20 mg) by mouth two times daily with meals for 3 days, THEN 3 Tablets (30 mg) once daily with a meal for 3 days, THEN 2 Tablets (20 mg) once daily with a meal for 3 days, THEN 1 Tablet (10 mg) once daily with a meal for 3 days.* active Not Available Not Available No t Available clopidogrel 75 mg tablet TAKE ONE TABLET BY MOUTH ONE TIME DAILY* active Not Available Not Available No t Available tramadol 50 mg tablet TAKE ONE OR TWO TABLETS BY MOUTH EVERY TWELVE HOURS* active Not Available Not Available No t Available oxycodone-a cetaminophe n 5 mg-325 mg tablet Take 1 to 2 Tablets by mouth 3 times daily if needed for Pain. Max acetamino phen dose: 4000mg in 24 hrs.* active Not Available Not Available No t Available lorazepam 0.5 mg tablet Take 1 Tablet (0.5 mg) by mouth one time if needed for Anxiety. Take 30 minutes prior to MRI for up to 1 dose.* 10/13 completed Not Available Not Available Not Available cephalexin 500 mg capsule TAKE ONE CAPSULE BY MOUTH FOUR TIMES DAILY* 10/13 completed Not Available Not Available Not Available losartan 25 mg tablet Take 0.5 Tablets (12.5 mg) by mouth once daily.* active Not Available Not Available No t Available gabapentin 300 mg capsule TAKE FOUR CAPSULES BY MOUTH TWO TIMES DAILY* active Not Available Not Available No t Available furosemide 20 mg tablet TAKE ONE TABLET BY MOUTH EVERY DAY IN THE MORNING.* active Not Available Not Available No t Available metoprolol succinate ER 25 mg tablet,exte nded release 24 hr TAKE HALF TABLET BY MOUTH DAILY* active Not Available Not Available No t Available metformin ER 500 mg tablet,exte nded release 24 hr TAKE TWO TABLETS BY MOUTH TWICE DAILY WITH MEALS* active Not Available Not Available No t Available insulin lispro (U-100) 100 unit/mL subcutaneou s pen INJECT 6 - 10 UNITS THREE TIMES DAILY BEFORE MEALS. MAX OF 30 UNITS PER DAY.* active Not Available Not Available No t Available duloxetine 30 mg capsule,del ayed release TAKE ONE CAPSULE BY MOUTH ONE TIME DAILY* active Not Available Not Available No t Available duloxetine 60 mg capsule,del ayed release TAKE ONE CAPSULE BY MOUTH ONE TIME DAILY* active Not Available Not Available No t Available acetaminoph en active Not Available Not Available Not Available atorvastati n active Not Available Not Available Not Available aspirin active Not Available Not Avail able Not Available nitroglycer in active Not Available Not Available Not Available clopidogrel active Not Available Not A vailable Not Available furosemide active Not Available Not Av ailable Not Available metformin active Not Available Not Oliva ilable Not Available gabapentin active Not Available Not Av ailable Not Available multivitami n active Not Available Not Available Not Available Lantus Solostar U-100 Insulin 100 unit/mL (3 mL) subcutaneou s pen INJECT 20 UNITS BY SUBCUTANE OUS ROUTE ONCE DAILY BEFORE BED.* active Not Available Not Available No t Available oxycodone 10 mg tablet Take 1 Tablet (10 mg) by mouth two times daily before meals.* active Not Available Not Available No t Available UltiCare Pen Needle 32 gauge x 5/32 Inject subcutane ous. Remove the 2 covers on the insulin pen needle before administe ring insulin dose four times daily* active Not Available Not Available No t Available empaglifloz in active Not Available Not Available Not Available Entresto 24 mg-26 mg tablet TAKE ONE TABLET BY MOUTH TWICE DAILY* active Not Available Not Available No t Available FreeStyle Jordana 2 Sensor kit Change sensor every 14 days AND USE DIRECTED* active Not Available Not Available No t Available Vitals Date Recorded Body height Body mass index (BMI) Body weight Provider Name and Address Organization Details Last Updated DateTime 11/24/2024 187.96 cm 30.3 kg/m2 957283.8 g Maida Ventura [place] - [facility] 11/24/2024 10:21:02 Social History None recorded. Functional Status None recorded. Mental Status None recorded. Family History Nothing Reported. Medical History No medical history recorded. Past Encounters Encounter ID Performer Location Encounter Start Date Encounter Closed Date Diagnosis/Indication Diagnosis SNOMED-CT Code Diagnosis ICD10 Code Diagnosis Note [id number] BIENVENIDO WHITTAKER DPM [facility] [address] [place] [address] 09/01/2024 10:38:32 09/02/2024 09:37:45 Peripheral neuropathy due to type 2 diabetes mellitus 8933696486 107 E11.42 Abscess of toe of right foot 6518851305 8948204 L02.611 Cellulitis of right foot 7756761136 1653134 L03.115 Ingrowing nail 505849352 L60.0 History of amputation of hallux 250825030 Z89.412 History of amputation of lesser toe 733301577 Z89.429 Arthritis of right foot 7118234292 803416 M13.871 [id number] BIENVENIDO WHITTAKER DPM [facility] [address] [place] [address] 09/16/2024 11:17:55 09/16/2024 15:14:27 Peripheral neuropathy due to type 2 diabetes mellitus 0669275588 107 E11.42 Abscess of toe of right foot 1570421165 2699039 L02.611 Cellulitis of right foot 1728203766 8929521 L03.115 Ingrowing nail 229167178 L60.0 History of amputation of hallux 947450178 Z89.412 History of amputation of lesser toe 870262506 Z89.429 Arthritis of right foot 5421351478 047374 M13.871 [id number] BIENVENIDO WHITTAKER DPM [facility] [address] [place] [address] 10/12/2024 11:38:26 10/13/2024 17:17:24 Peripheral neuropathy due to type 2 diabetes mellitus 1852651652 107 E11.42 Abscess of toe of right foot 3153811902 0628323 L02.611 Cellulitis of right foot 1597005650 6789447 L03.115 Ingrowing nail 014183772 L60.0 History of amputation of hallux 154389026 Z89.412 History of amputation of lesser toe 857046948 Z89.429 Arthritis of right foot 8677950832 637622 M13.871 [id number] BIENVENIDO WHITTAKER [facility] [address] [place] [address] 11/24/2024 10:02:06 11/24/2024 16:36:17 Ulcer of right foot 653491875 L97.512 [id number] BIENVENIDO WHITTAKER [facility] [address] [place] [address] 12/01/2024 10:40:48 12/01/2024 15:06:13 Ulcer of right foot 631594893 L97.512 [id number] BIENVENIDO WHITTAKER [facility] [address] [place] [address] 12/08/2024 14:47:33 12/09/2024 12:59:33 Ulcer of right foot 401941553 L97.512 [id number] BIENVENIDO WHITTAKER [facility] [address] [place] [address] [facility] [place] [place] [address] 12/29/2024 13:44:10 12/30/2024 16:39:56 Ulcer of right foot 817403008 L97.512 Onychomycosis 982428205 B35.1 Diabetic p eripheral neuropathy 440022308 E11.42 Peripheral vascular disease 455230127 I73.89 Health Concerns Section Related Observation LastModified by Organization Detai ls LastModified Time None Recorded Concern Status LastModified by Organization Details LastModified Time None Recorded Advance Directives Directive None Recorded Payers Insurance Date Sequence Insurance Name Policy Number Policy Landa Covered Member ID Landa Member ID Guarantor Name 01/01/2025 1 [facility] (MEDICARE REPLACEMENT/A DVANTAGE - PPO) [id number] Dale Mateo IssaLuna [id number] Dalecaleb Issason 09/01/2024 1 *SELF PAY* Shalonda Luna Notes Date Note Type Note Provider Name and Address Organization Details Recorded Time 10/12/2024 text/html The patient presents today for a follow-up after an incision and drainage (I&D) procedure and total nail avulsion on the right hallux. The patient states that the procedure site appears to be healing well and that his checks it every day. States that he discontinued the foot soaks and triple antibiotic ointment application last week. The patient denies any pain at the site.PRIOR HISTORY:The patient presents today with his as an urgent add-on from Urgent Care with concerns regarding the right big toe. The patient's noticed pus coming from the side of the toe last night and subsequently visited urgent care this morning, where they were referred to this office. 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 The patient reports no nausea, vomiting, chills, or fever. The patient has diminished sensation in the feet but can feel some pressure. The patient is currently on antibiotics prescribed by urgent care. Last A1c 7.8. States that he is part of the diabetic shoe program. Currently on Plavix. Last PCP Visit with Dr. Lakesha Khan MD on 08/19/24 BIENVENIDO WHITTAKER DPM [address] [place], [address], [facility] - [facility] 10/13/2024 14:24:31 11/24/2024 text/html The patient presents with a wound on the tip of the right hallux, which began on Saturday. He reports significant bleeding at the time and sought care at an urgent care facility, where he was advised it was a blood blister. No antibiotics were prescribed, and he was instructed to stay off the foot and follow up with a air tucker. The patient denies any nausea, vomiting, chills, or fever. He describes the wound as initially covered in blood, with no clear precipitating trauma. He denies wearing new or ill-fitting shoes.The patient and his have been cleaning the wound with Betadine and covering it with a bandage. He expresses concern about the appearance of the wound and seeks guidance on further care.The patient also mentions a history of significant cardiac issues, including an ejection fraction of 22%, and ongoing evaluation for potential stent placement or an internal cardiac device. He reports seeing multiple specialists for his heart condition. Last PCP visit with Dr. Nino in 11/03 and next appointment on 12/11/24 BIENVENIDO WHITTAKER DPM [address] [place], [address], [facility] 11/24/2024 15:02:09 12/01/2024 text/html The patient presents for ongoing management of a right hallux ulcer. He reports that his has been applying betadine daily and covering the area with a bandage. There has been no drainage or bleeding noted from the site. He has been wearing a surgical shoe, which he feels has helped by reducing pressure on the area. He denies any pain or discomfort during the examination. The patient confirms that he owns a new pair of diabetic shoes, which he has not yet worn due to winter weather and concern about using them outside. He acknowledges that the ulcer likely developed due to wearing worn-out shoes. He plans to bring the new shoes to his next appointment for evaluation. PRIOR HISTORY:The patient presents with a wound on the tip of the right hallux, which began on Saturday. He reports significant bleeding at the time and sought care at an urgent care facility, where he was advised it was a blood blister. No antibiotics were prescribed, and he was instructed to stay off the foot and follow up with a air tucker. The patient denies any nausea, vomiting, chills, or fever. He describes the wound as initially covered in blood, with no clear precipitating trauma. He denies wearing new or ill-fitting shoes.The patient and his have been cleaning the wound with Betadine and covering it with a bandage. He expresses concern about the appearance of the wound and seeks guidance on further care.The patient also mentions a history of significant cardiac issues, including an ejection fraction of 22%, and ongoing evaluation for potential stent placement or an internal cardiac device. He reports seeing multiple specialists for his heart condition. Last PCP visit with Dr. Nino in 11/03 and next appointment on 12/11/24 BIENVENIDO WHITTAKER DPM [address] [place], [address], [facility] 12/01/2024 14:21:46 12/08/2024 text/html The patient presents for ongoing surveilance of a recently healed right hallux ulcer. He reports no pain or new symptoms at the site. He confirms continued use of a surgical shoe as previously instructed and has brought his Diabetic footwear for evaluation. He recalls that the ulcer developed after wearing an old, ill-fitting shoe, which he has since discarded. The patient denies any new wounds, drainage, or discomfort. He is ambulating regularly, walking approximately five miles daily, and denies any issues with mobility. No other podiatric complaints are voiced. PRIOR HISTORY:The patient presents with a wound on the tip of the right hallux, which began on Saturday. He reports significant bleeding at the time and sought care at an urgent care facility, where he was advised it was a blood blister. No antibiotics were prescribed, and he was instructed to stay off the foot and follow up with a air tucker. The patient denies any nausea, vomiting, chills, or fever. He describes the wound as initially covered in blood, with no clear precipitating trauma. He denies wearing new or ill-fitting shoes.The patient and his have been cleaning the wound with Betadine and covering it with a bandage. He expresses concern about the appearance of the wound and seeks guidance on further care.The patient also mentions a history of significant cardiac issues, including an ejection fraction of 22%, and ongoing evaluation for potential stent placement or an internal cardiac device. He reports seeing multiple specialists for his heart condition. Last PCP visit with Dr. Nino in 11/03 and next appointment on 12/11/24 BIENVENIDO WHITTAKER DPM [address] [place], [address], [facility] 12/09/2024 12:26:15 12/29/2024 text/html Patient returns for ongoing surveillance of a previous ulceration to the right hallux. They report no new drainage or concerning changes at the site. The area has been kept dry, and no specific treatments have been used recently. The patient notes the presence of a scab or callus at the tip of the right hallux, which has not caused any pain or drainage. 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 They deny any current symptoms related to these areas. The patient is aware of their higher risk for foot complications. They were last seen by their primary care provider, Dr. Khan, on December 11, 2024. PRIOR HISTORY:The patient presents with a wound on the tip of the right hallux, which began on Saturday. He reports significant bleeding at the time and sought care at an urgent care facility, where he was advised it was a blood blister. No antibiotics were prescribed, and he was instructed to stay off the foot and follow up with a air tucker. The patient denies any nausea, vomiting, chills, or fever. He describes the wound as initially covered in blood, with no clear precipitating trauma. He denies wearing new or ill-fitting shoes.The patient and his have been cleaning the wound with Betadine and covering it with a bandage. He expresses concern about the appearance of the wound and seeks guidance on further care.The patient also mentions a history of significant cardiac issues, including an ejection fraction of 22%, and ongoing evaluation for potential stent placement or an internal cardiac device. He reports seeing multiple specialists for his heart condition. Last PCP visit with Dr. Nino in 11/03 and next appointment on 12/11/24 BIENVENIDO WHITTAKER DPM [address] [place], [address], [facility] 12/29/2024 15:53:51
--- OUTSIDE RECORDS SUMMARY | 2025-02-16 19:21 | XMS_ITS | Data Portability ---
Author Organization [place] - [facility] Address [address] [facility] [place] [address] Care Team Providers Care Arabic Translator Name Role Phone DOMENIC COFFMAN Primary Care Provider Assessment No assessment recorded. Plan of Treatment Reminders Order Date Submit Date Provider Last Modified By Organization Details Last Modified Time Details Appointments None record ed. Lab None record ed. Referral None record ed. Procedures None record ed. Surgeries None record ed. Imaging None record ed. Medication Orders None record ed. Patient TargetsNo targets recorded. Patient InstructionsNo instructions recorded. Reason for Referral None Reported. Results Created Date Observation Date Name Description Value Unit Range Abnormal Flag Note LastModifiedBy Organization Detail LastModifiedTime 11/24/19 20 11/24/2019 anaer obic/ aerob ic cultu re/gr am stain culture 240 2+ Haemo philu s parai nflue nzae Not Available [facility] - [address] [place]cos, [place], [address], 11/28/2019 14:15:22 11/24/19 20 11/24/2019 anaer obic/ aerob ic cultu re/gr am stain cefinase Negati ve Not Available [facility] - [place] [address] [place], [address], 11/28/2019 14:15:22 11/24/19 20 11/24/2019 anaer obic/ aerob ic cultu re/gr am stain gram stain result 3+ Polym orpho nucle ar leuko cytes 1+ Gram negat shiloh bacil li Not Available [facility] [address] Sally Marcos, [place], [address], 11/28/2019 14:15:22 11/24/19 20 11/24/2019 anaer obic/ aerob ic cultu re/gr am stain culture 240 2+ Haemo philu s parai nflue nzae Not Available [facility] [address] [place] Marcos, [place], [address], 11/27/2019 13:54:58 11/24/19 20 11/24/2019 anaer obic/ aerob ic cultu re/gr am stain cefinase Negati ve Not Available [place] [address] [address] [place], [place], [address], 11/27/2019 13:54:58 11/24/19 20 11/24/2019 anaer obic/ aerob ic cultu re/gr am stain gram stain result 3+ Polym orpho nucle ar leuko cytes 1+ Gram negat shiloh bacil li Not Available [place] [address] [address], [place], [address], 11/27/2019 13:54:58 11/24/19 20 11/24/2019 anaer obic/ aerob ic cultu re/gr am stain culture 819 2+ Gram Negat shiloh Khoi Not Available [facility] [place] [address] [address], [place], [address], 11/26/2019 14:01:18 11/24/19 20 11/24/2019 anaer obic/ aerob ic cultu re/gr am stain gram stain result 3+ Polym orpho nucle ar leuko cytes 1+ Gram negat shiloh bacil li Not Available [facility] [place] [address] [address], [place], [address], 11/26/2019 14:01:18 01/07/20 20 01/07/2020 CBC w/ auto diff white blood cell count 4.71 10*3/ uL 4.00-1 0.80 Not Available [facility] [address] [place]cos, [place], [address], 01/07/2020 21:05:58 01/07/20 20 01/07/2020 CBC w/ auto diff red blood cell count 3.33 10*6/ uL 4.30-5 .60 low Not Available [facility] [address] [place], [place], [address], 01/07/2020 21:05:58 01/07/20 20 01/07/2020 CBC w/ auto diff hemoglobin 8.1 g/dL 13.0-1 6.8 low Not Available [facility] [address] [place]cos, [place], [address], 01/07/2020 21:05:58 01/07/20 20 01/07/2020 CBC w/ auto diff hematocrit 25.3 % 37.0-4 9.0 low Not Available [facility] [address] [place], [place], [address], 01/07/2020 21:05:58 01/07/20 20 01/07/2020 CBC w/ auto diff MCV - mean corpuscular volume 76 fL 78.0-9 8.0 low Not Available [facility] [address] [place], [place], [address], 01/07/2020 21:05:58 01/07/20 20 01/07/2020 CBC w/ auto diff MCH - mean corpuscular hemoglobin 24.3 pg 25.0-3 5.0 low Not Available [facility] [address] [place], [place], [address], 01/07/2020 21:05:58 01/07/20 20 01/07/2020 CBC w/ auto diff MCHC - mean corpuscular hemoglobin conc 32.0 g/dL 32.0-3 6.0 Not Available [facility] [address] [place], [place], [address], 01/07/2020 21:05:58 01/07/20 20 01/07/2020 CBC w/ auto diff red cell distribution width 16.4 % 11.5-1 4.5 high Not Available [facility] [place] [address] [address], [place], [address], 01/07/2020 21:05:58 01/07/20 20 01/07/2020 CBC w/ auto diff platelet count 201 10*3/ uL 130-40 0 Not Available [facility] [place] [address] [address], [place], [address], 01/07/2020 21:05:58 01/07/20 20 01/07/2020 CBC w/ auto diff automated NRBC (percent) 0.0 % <1.0 Not Available [facility] [place] [address] [address], [place], [address], 01/07/2020 21:05:58 01/07/20 20 01/07/2020 CBC w/ auto diff automated NRBC (absolute) 0.00 10*3/ uL <=0.10 Not Available [facility] [place] [address] [address], [place], [address], 01/07/2020 21:05:58 01/07/20 20 01/07/2020 CBC w/ auto diff neutrophils relative percent 49.5 % 42.5-7 4.6 Not Available [facility] [address] [place], [place], [address], 01/07/2020 21:05:58 01/07/20 20 01/07/2020 CBC w/ auto diff lymphocytes relative percent 32.5 % 16.8-4 4.9 Not Available [facility] [address] [place], [place], [address], 01/07/2020 21:05:58 01/07/20 20 01/07/2020 CBC w/ auto diff monocytes relative percent 8.7 % 3.6-11 .7 Not Available [facility] [address] [place], [place], [address], 01/07/2020 21:05:58 01/07/20 20 01/07/2020 CBC w/ auto diff eosinophils relative percent 8.7 % 0.0-5. 0 high Not Available [facility] [place] [address] [address], [place], [address], 01/07/2020 21:05:58 01/07/20 20 01/07/2020 CBC w/ auto diff basophils relative percent 0.2 % 0.0-2. 0 Not Available [facility] [place] [address] [address], [place], [address], 01/07/2020 21:05:58 01/07/20 20 01/07/2020 CBC w/ auto diff neutrophils absolute count 2.330 10*3/ uL 1.900- 8.000 Not Available [facility] [place] [address] [place], [address], 01/07/2020 21:05:58 01/07/20 20 01/07/2020 CBC w/ auto diff lymphocytes absolute count 1.530 10*3/ uL 0.900- 4.000 Not Available [facility] [address] [place], [place], [address], 01/07/2020 21:05:58 01/07/20 20 01/07/2020 CBC w/ auto diff monocytes absolute count 0.410 10*3/ uL 0.200- 1.000 Not Available [facility] [address] [place], [address], 01/07/2020 21:05:58 01/07/20 20 01/07/2020 CBC w/ auto diff eosinophils absolute count 0.410 10*3/ uL 0.000- 0.800 Not Available [facility] [place] [address] [place], [address], 01/07/2020 21:05:58 01/07/20 20 01/07/2020 CBC w/ auto diff basophils absolute count 0.010 10*3/ uL 0.000- 0.100 Not Available [facility] [place] [address] [place], [address], 01/07/2020 21:05:58 01/07/20 20 01/07/2020 CBC w/ auto diff immature granulocytes (Ig) 0.4 % <1.0 Not Available [facility] [place] [address] [place], [address], 01/07/2020 21:05:58 01/07/20 20 01/07/2020 CBC w/ auto diff immature granulocytes abs 0.02 10*3 <=0.10 Not Available [facility] [place] [address] [place], [address], 01/07/2020 21:05:58 01/07/20 20 01/07/2020 trigl yceri zhou triglyceride s 77 mg/dL <150 Not Available [facility] [place] [address] [address], [place], [address], 01/07/2020 21:29:27 01/07/20 20 01/07/2020 magne sium magnesium 1.7 mg/dL 1.6-2. 3 Not Available [facility] [place] [address] [address], [place], [address], 01/07/2020 21:29:29 01/07/20 20 01/07/2020 lacta te dehyd rogen ase lactate dehydrogenas e 112 U/L 120-24 6 low Not Available [facility] [address] [place], [place], [address], 01/07/2020 21:29:37 01/07/20 20 01/07/2020 gamma -glut amyl trans feras e (ggt) , serum gamma glutamyl transferase 67 U/L 15-73 Not Available [facility] [place] [address] [address], [place], [address], 01/07/2020 21:29:38 01/07/20 20 01/07/2020 CMP, serum or plasm a sodium 133 mmol/ L 137-14 5 low Not Available [facility] [place] [address] [address], [place], [address], 01/07/2020 21:29:48 01/07/20 20 01/07/2020 CMP, serum or plasm a potassium 4.0 mmol/ L 3.5-5. 1 Not Available [facility] [place] [address] [place], [address], 01/07/2020 21:29:48 01/07/20 20 01/07/2020 CMP, serum or plasm a chloride 100 mmol/ L 98-107 Not Available [facility] [address] [place], [place], [address], 01/07/2020 21:29:48 01/07/20 20 01/07/2020 CMP, serum or plasm a bicarbonate 25.0 mmol/ L 22.0-3 0.0 Not Available [facility] [address] [place], [place], [address], 01/07/2020 21:29:48 01/07/20 20 01/07/2020 CMP, serum or plasm a glucose 228 mg/dL 74-99 high Not Available [facility] [address] [place], [place], [address], 01/07/2020 21:29:48 01/07/20 20 01/07/2020 CMP, serum or plasm a blood urea nitrogen 32.0 mg/dL 9.0-20 .0 high Not Available [facility] [place] [address] [address], [place], [address], 01/07/2020 21:29:48 01/07/20 20 01/07/2020 CMP, serum or plasm a creatinine 0.72 mg/dL 0.66-1 .25 Not Available [facility] [address] [place], [place], [address], 01/07/2020 21:29:48 01/07/20 20 01/07/2020 CMP, serum or plasm a BUN / creat ratio 44.4 6.0-30 .0 high Not Available [facility] [place] [address] [address], [place], [address], 01/07/2020 21:29:48 01/07/20 20 01/07/2020 CMP, serum or plasm a glom filt rate, est >60 Range >60mL /min per 1.73 m2 K/DOQ I Class ifica tion of CRD Stage 1:GFR >90 with persi stent album inuri a Stage 2:GFR 60-89 with persi stent album inuri a Stage 3:GFR 30-59 ,Stag e4:GF R 15-29 Stage 5:GFR <15 Do not use this value for renal adjus tment of medic ation . Not Available [facility] - [address] [place], [place], [address], 01/07/2020 21:29:48 01/07/20 20 01/07/2020 CMP, serum or plasm a calcium 8.2 mg/dL 8.4-10 .2 low Not Available [facility] - [place] [address] [place], [address], 01/07/2020 21:29:48 01/07/20 20 01/07/2020 CMP, serum or plasm a adjusted calcium 9.0 mg/dL 8.4-10 .2 Begin esther 6, Adjus mitzi Calci um is calcu lated using formu la from [facility] bing Diagn osis and Manag ement by Fei rapp Not Available [facility] - [place] [address] [place], [address], 01/07/2020 21:29:48 01/07/20 20 01/07/2020 CMP, serum or plasm a protein total 7.0 g/dL 6.3-8. 2 Not Available [facility] - [place] [address] [place], [address], 01/07/2020 21:29:48 01/07/20 20 01/07/2020 CMP, serum or plasm a albumin 3.1 g/dL 3.5-5. 0 low Not Available [facility] - [place] [address] [place], [address], 01/07/2020 21:29:48 01/07/20 20 01/07/2020 CMP, serum or plasm a globulin 3.9 g/dL 2.3-3. 5 high Not Available [facility] [address] [place], [address], 01/07/2020 21:29:48 01/07/20 20 01/07/2020 CMP, serum or plasm a A/G ratio 0.8 1.0-2. 0 low Not Available [facility] [place] [address] [place], [address], 01/07/2020 21:29:48 01/07/20 20 01/07/2020 CMP, serum or plasm a AST (SGOT) 37 U/L 17-59 Not Available [facility] [address] [place], [address], 01/07/2020 21:29:48 01/07/20 20 01/07/2020 CMP, serum or plasm a ALT (SGPT) 46 U/L <50 Not Available [facility] [address] [place], [address], 01/07/2020 21:29:48 01/07/20 20 01/07/2020 CMP, serum or plasm a alkaline phosphatase 49 U/L 38-126 Not Available [facility] [place] [address] [place], [address], 01/07/2020 21:29:48 01/07/20 20 01/07/2020 CMP, serum or plasm a bilirubin total 0.2 mg/dL 0.2-1. 3 Not Available [facility] [place] [address] [place], [address], 01/07/2020 21:29:48 01/07/20 20 01/07/2020 CMP, serum or plasm a anion gap 8 mmol/ L 8-16 Not Available [facility] - [address], [place], [address], 01/07/2020 21:29:48 01/07/20 20 01/07/2020 preal bumin , serum prealbumin 12 mg/dL 10-40 Not Available [facility] - [address] Sally [place]cos, [place], [address], 01/08/2020 02:56:35 Result Notes None recorded. Problems Name Problem SNOMED Code Status Onset Date Resolution Date Notes Provider Name and Address Organization Details Recorded Time Diabetes mellitus 81395360 Active 2018 Jaz Pennington - SUPERVIS[employer] null, [place] - [place] [facility] 9 17:28:10 Hyperlipid emia 79255177 Active 2018 Jaz Pennington - SUPERVISOR [employer]K [employer]OL null, [place] [facility] 9 17:28:21 Hypertensi ve disorder 99410870 Active 2018 Paula Ewing - SUPERVISOR [employer] null, [place] - [facility] 9 12:51:34 Duodenal anastomoti c leak 189469768 Active 201910/27/2019 [facility] Bi Pennington - SUPERVISOR TYPE DISK QUALITY CONTROL null, [place] [facility] 0 18:40:41 Acute stress disorder 87726343 Active 201910/27/2019 [facility] Bi Pennington - SUPERVISOR TYPE [employer]K [employer]OL null, [place] [facility] 0 18:40:41 Abscess 782169557 Active 2019 2 drains, [facility], 12/19/2019, Dr. Navarro ; RLQ, drain in place, [facility], 11/27/2019, Dr. Maritza cintron, RN [address] [facility], [place], [address], [place] - [facility] [facility] 0 13:05:20 Problem Notes None recorded. Procedures Surgical History Date Name Laterality Status Provider Name and Address Organization Details Recorded Time 020 percutaneous drainage of retroperitoneal abscess completed Dianne Coombs RN [address], [place], [address], [place] [facility] 12/21/2019 13:04:21 020 Laparo partial colectomy completed Jaimie Swearinger - SUPERVISOR TYPE [employer] [place] [facility] 09/14/2019 11:01:53 019 Colonoscopy [place] completed Luis Salas MD [address], [place], [address], [facility] [place] [facility] 07/13/2019 13:13:19 019 Diagnostic colonoscopy completed Jaimie Swearinger - SUPERVISOR TYPE [employer]K [employer] CONTROL [place] [facility] 09/14/2019 11:03:21 019 amputation of toe completed Jessica DE DIOS [address] [facility] [place], [address], [place] [facility] 06/05/2019 14:54:23 009 Angioplasty completed Domenic Coffman MD [address], [place], [address], [place] [facility] 06/10/2019 18:04:07 Gallbladder Surgery completed Jaz Pennington - SUPERVISOR [employer]K [employer]OL [place] [facility] 06/10/2019 17:30:28 Appendectomy completed Jaz Benjie r - SUPERVISOR [employer]K [employer] [place] [facility] 06/10/2019 17:30:34 Neck Surgery completed Jaz Fishe r - SUPERVISOR [employer] [place] - [place] [facility] 06/10/2019 17:30:59 Imaging Results None recorded. Procedure Notes None recorded. Medical Equipment None Reported. Allergies Allergen ID Allergen Name Allergen Category Reaction Reaction Severity Criticality Documentation Date Start Date Code Code System Note Provider Name and Address Organization Details Recorded Time 160585 acetamino phen / oxycodone medicatio n Not available Not available Not available 06/05/2019 14161 3 RxNorm Neydanic MELÉNDEZ null, [place] - [facility] 9 11:16:29 [id number] Darvocet- N medicatio n Not available Not available Not available 06/05/2019 51703 PRITIChucky Neyda MELÉNDEZ null, [place] - [facility] 9 11:16:38 Medications Name Sig Start Date Stop Date Status Note LastModified by Organization Details LastModified Time atorvasta tin 40 mg tablet 06/10 completed Not Available Not Available Not Available atorvasta tin 20 mg tablet Take 1 tablet twice a day by oral route. 2018 active Not Available Not Available Not Avai lable trazodone 50 mg tablet Take 0.5 tablets by mouth once daily at bedtime as needed 11/26 completed 10/27/19 VTASCENCION alvares MD Not Available Not Available Not Available FreeStyle Test strips Take 3 strips every day by miscell. route. 2019 active Not Available Not Available Not Avai lable Keflex 500 mg capsule Take 1 capsule every 8 hours by oral route for 10 days. 08/10 completed Not Available Not Available Not Available lactated Ringers intraveno us solution Give one bag (1 liter) fluid daily at home active Imani Ragland MD - 0 Not Available Not Available Not Available Lantus U-100 Insulin 100 unit/mL subcutane ous solution Inject 14 units every day by subcutan eous route at bedtime. 2019 active Imani Ragland MD - 0 Not Available Not Available Not Available melatonin 3 mg tablet Take 3 mg every day by oral route in the evening. 10/28 completed 10/27/19 MONTY alvares MD Not Available Not Available Not Available omeprazol e 40 mg capsule,d elayed release TAKE 1 CAPSULE (40 MG) BY ORAL ROUTE ONCE DAILY BEFORE breakfas t. Administ er 30 to 60 minutes before meals 2019 active 10/27/19 MONTY alvares MD Not Available Not Available Not Available tramadol 50 mg tablet Take 1 tablet every 6 hours by oral route as needed. 01/05 completed [facility], 4/17/202 0, Dr. Salas Not Available Not Available Not Available acetamino phen 500 mg tablet Take 2 tablets 3 times a day by oral route as needed. 2019 active [facility], 12/19/2019 , Dr. Marce alvares Not Available Not Available Not Available dronabino l 2.5 mg capsule Take 1 capsule twice a day by oral route before meals. active Imani Ragland MD - 0 Not Available Not Available Not Available Lidoderm 5 % topical patch APPLY 1 PATCH BY TOPICAL ROUTE ONCE DAILY (MAY WEAR UP TO 12HOURS. ) active [facility] 01/18/20 Not Available Not Available Not Available tamsulosi n 0.4 mg capsule Take 1 capsule every day by oral route. active [facility] 01/18/20 Not Available Not Available Not Available sodium citrate-c itric acid 500 mg-334 mg/5 mL oral solution Take 15 mL 4 times a day by oral route. active [facility] 01/18/20 Not Available Not Available Not Available metformin 1,000 mg tablet Take 1 tablet twice a day by oral route. 2019 Imani Ortiz MD - 0 Not Available Not Available Not Available lisinopri l 10 mg tablet Take 1 tablet every day by oral route. 10/28 completed 10/27/19 20 [facility] Bi alvares MD Not Available Not Available Not Available Novolog U-100 Insulin aspart 100 unit/mL subcutane ous solution Take 7 units per meal 07/08 completed Not Available Not Available Not Available insulin lispro (U-100) 100 unit/mL subcutane ous solution Inject 9 Units under the skin (SUBC) once daily with breakfas t AND 6 Units once daily with lunch AND 6 Units once daily with dinner, plus sliding scale: blood sugar 150-200, 2 units; 201-250, 4 units; 251-300, 6 units; 301-350, 8 units; 351-400, take 10 units 2019 Imani Ortiz MD - 0 Not Available Not Available Not Available ondansetr on 4 mg disintegr ating tablet Dissolve 1 tablet on tongue and swallow every eight hours as needed. 01/05 completed 0 [facility] Bi alvares MD Not Available Not Available Not Available amoxicill in 875 mg-potass ium clavulana te 125 mg tablet Take 1 tablet every 12 hours by oral route for 4 days. 01/05 completed [facility], 12/19/2019 , Dr. Marce alvares Not Available Not Available Not Available simethico ne 80 mg chewable tablet Chew and swallow 1 tablet three times daily as needed for bloating active 10/27/19 [facility] Bi alvares MD Not Available Not Available Not Available oxycodone 5 mg tablet TAKE 1-2 TABLETS (5-10 MG) BY ORAL ROUTE EVERY 6 HOURS NEEDED FOR SEVERE PAIN active [facility] Imani Alejandro MD - 0 Not Available Not Available Not Available insulin lispro (U-100) 100 unit/mL subcutane ous pen Inject 0-10 Units under the skin (SUBC) three times daily before meals. Humalog 1:15 carb coverage for meals 02/06 completed changed to vials, [facility], 0, Dr. Marce alvares; [facility], 12/19/2019 , Dr. Marce alvares Not Available Not Available Not Available Novolog FlexPen U-100 Insulin aspart 100 unit/mL (3 mL) subcutane ous inj 7 units per meal 10/28 completed 10/27/19 20 [facility] Bi alvares MD Not Available Not Available Not Available duloxetin e 30 mg capsule,d elayed release Take 30 mg every day by oral route at bedtime. 2019 active 10/27/19 [facility] Bi alvares MD Not Available Not Available Not Available Aspir-81 10/28 completed 10/27/19 [facility] Bi alvares MD Not Available Not Available Not Available metformin Take 1000 twice daily 10/28 completed Not Available Not Available Not Available TPN Electroly mayda TPN for 12 hours from midnight to noon active per pt Not Available Not Available No t Available Nacl inject 10 ml into the vein IV as neeed per [facility] home infusion per procedur ePlease flush central line with 5-10 ml of saline from syringe twice daily active [facility] Imani Alejandro MD - 0 Not Available Not Available Not Available Novolog FlexPen U-100 Insulin Take 7 units per meal 07/13 completed Not Available Not Available Not Available Lantus Solostar U-100 Insulin 100 unit/mL (3 mL) subcutane ous pen Inject 8 Units under the skin (SUBC) once daily in the evening 02/06 completed changed to vials, [facility], 0, Dr. Marce alvares; [facility] 01/18/20 Not Available Not Available Not Available Lantus Solostar U-100 Insulin Take 35 units before bed 08/11 completed Not Available Not Available Not Available Heparin Lock Flush (Porcine) (PF) 10 unit/mL intraveno us syringe As needed 12/20 completed 12/19/19, [facility], Dr. Marce alvares; 10/27/19 [facility] Bi alvares MD Not Available Not Available Not Available Vitals None Recorded Social History Question Answer Notes LastModified by Organizat ion Details LastModified Time Tobacco Smoking Status Never Smoker Jaz Pennington - [facility], [place] - [facility] 06/10/2019 17:28:49 What Is Your Level Of Caffeine Consumption? Moderate [email or web address] Information not available 06/10/2019 How Much Tobacco Do You Chew? None Information not available 06/10/2019 In The 14 Days Before Symptom Onset, Have You Had Close Contact With A Laboratory-confirm ed COVID-19 While That Case Was Ill? No [email or web address] Information n ot available 11/03/2019 In The 14 Days Before Symptom Onset, Have You Had Close Contact With A Person Who Is Under Investigation For COVID-19 While That Person Was Ill? No [email or web address] Information not available 11/03/2019 Have You Been To An Area Known To Be High Risk For COVID-19? No [email or web address] Information not available 11/03/2019 What Type Of Diet Are You Following? DIABETIC [email or web address] Information n ot available 06/10/2019 Which Illicit Or Recreational Drugs Have You Used? 0 [email or web address] Information not available 06/10/2019 Education 12 [email or web address] Information no t available 06/10/2019 Are There Any Guns Present In Your Home? Yes Information not available 06/10/2019 Hard Of Hearing Or Deaf In One Or Both Ears? No Information not available 06/10/2019 Legally Blind In One Or Both Eyes? No [email or web address] Information no t available 06/10/2019 Live Alone Or With Others? With Others [email or web address] Information not available 06/10/2019 In The Past Year, Have You Had 5 Or More Drinks In A Day? No [email or web address] Information not available 06/10/2019 In The Past Year, Have You Had 4 Or More Drinks In A Day? No [email or web address] Information not available 06/10/2019 In The Past Year, Have You Used A Recreational Drug Or Used A Prescription Medication For Non-medical Reasons? No Information not available 06/10/2019 Is It Difficult For You To Pay For The Very Basics (i.e. Food, Housing, Medical Care, Heating, Transportation)? No [email or web address] Information not available 06/10/2019 [employer] YAC[employer]+: Do You Have Difficulty Understanding How To Take Your Medications Correctly? No [email or web address] Information not available 06/10/2019 How Many Children Do You Have? 0 [email or web address] Information not available 06/10/2019 Seat Belts Used Routinely Yes [email or web address] Information not available 06/10/2019 Are You Sexually Active? Yes [email or web address] Information not available 06/10/2019 Smoke Alarm In Home Yes [email or web address] Information not available 06/10/2019 How Much Tobacco Do You Smoke? No [email or web address] Information not available 06/10/2019 Sex: Unknown Functional Status Question Answer Note LastModified by Organizat ion Details LastModified Time What is your level of alcohol consumption? Occasional [email or web address] Information not available 06/10/2019 Do you or have you ever used smokeless tobacco? Never used smokeless tobacco [email or web address] Information not available 06/10/2019 Are you currently employed? No [email or web address] Information not available 06/10/2019 Are you able to care for yourself? Yes [email or web address] Information not available 06/10/2019 Do you or have you ever used e-cigarettes or vape? Never used electronic cigarettes [email or web address] Information not available 06/10/2019 What is your exercise level? Moderate [email or web address] Information not available 06/10/2019 Mental Status None recorded. Family History Relationship Description Onset Age of this Age Resolved Age Notes LastModified by Organization Details LastModified Time Mother Malignant tumor of colon 70 70 from colon cancer very quickl y [email or web address] Not available 06/11/2019 18:08:45 Medical History Condition Response Diabetes Y Immunizations Vaccine Type Date Status Note Provider Nam e and Address Organization Details Recorded Time Influenza, split virus, quadrivalent, preservative 9 completed Jaz Pennington - [facility] story - [facility] 06/10/2019 17:36:09 Past Encounters Encounter ID Performer Location Encounter Start Date Encounter Closed Date Diagnosis/Indication Diagnosis SNOMED-CT Code Diagnosis ICD10 Code Diagnosis Note [id number] [facility] [address] [place] [id number] 06/05/2019 11:02:33 06/05/2019 14:56:40 Blister of toe without infection 57970887 S90.425A [id number] Domenic Coffman MD [facility] [place] [address] [place] [id number] 06/10/2019 16:59:20 06/12/2019 13:25:28 Diabetes mellitus 05981189 E11.9 New patient who is type [address] for several years complicati ons include peripheral neuropathy and amputation s. Patient has also got coronary artery disease. Patient has been very stable his 's been taking care of him keep an eye on his feet. Blood sugars run about 120-140. I have recommende d he continue follow-up every 3 months with me. 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 Hyperlipidemia 90076168 E78.5 Diabetic p eripheral neuropathy 418871004 E11.40 Recommend the patient see the [facility] just to make sure that he is doing well with his diabetes exam today is actually really good he is missing toes on his foot but otherwise the blisters are clean and no evidence of cellulitis Blister of toe without infection 75820913 S90.425A [id number] Anthony Zamarripa DPM Podiatry_ [place] [place] [id number] 06/16/2019 15:59:55 06/17/2019 15:01:14 Blister 493968712 R23.8 Hammer toe 075261559 M20 .42 Disorder o f nervous system due to type 2 diabetes mellitus 042355300 E11.42 [id number] Cornell Salas MD [facility] [address] [place] [address] 07/13/2019 10:45:15 07/13/2019 13:14:56 Screening for malignant neoplasm of colon 735643321 Z12.11 Polyp of colon 59187345 K63.5 [id number] Isa Heart MD InternalM edicine[facility] [address] [place] [id number] 07/31/2019 14:26:19 07/31/2019 16:52:01 [id number] Jared Cisneros, [facility] [address] [place] [address] 07/31/2019 18:02:29 08/02/2019 12:55:34 Infection of toe 940752041 L08.9 patient presenting with appearance of infection and a blister on his 4th toe. Will go ahead and start him on a course of Keflex. Emphasized the importance taking the entire course of antibiotic s. He has follow-up with Podiatry in a few days. Recommend return sooner if he develops fevers or worsening of the swelling or erythema despite antibiotic s. patient expressed understand ing and agreement with treatment plan Tachycardia 3841415 R00. 0 Patient noted to be tachycardi c up to 124 bpm on presentati on. Pulse was rechecked during clinic visit and came down to 104, though this was not documented at the time. Patient notes that he chronicall y has a fairly high heart rate around 100. He was not showing any other signs of systemic illness from his toe infection, nor any signs of cardiac distress, and indeed underwent a cardiac stress test earlier today [id number] Anthony Zamarripa DPM Podiatry_ [place] [address] [place] [address] 08/04/2019 12:47:49 08/10/2019 13:53:55 Acquired hammer toe of left foot [id number] 777596 M20.42 Blister of toe without infection 69627623 S90.425A Peripheral neuropathy due to type 2 diabetes mellitus 8874697899 107 E11.42 [id number] Cornell Salas MD Surgery[facility] [address] [place] [address] 08/11/2019 10:59:45 08/11/2019 12:07:43 Polyp of colon 61796761 K63.5 [id number] Anthony Zamarripa DPM Podiatry_ [place] [address] [place] [id number] 08/25/2019 11:52:26 08/26/2019 14:41:59 Blister of toe without infection 92668351 S90.425A Hammer toe 170889896 M20 .42 Disorder o f nervous system due to type 2 diabetes mellitus 264980919 E11.42 [id number] Nataliia Maldonado RN [facility] [address] [place] [id number] 10/29/2019 21:01:51 10/29/2019 21:45:53 [id number] Domenic Coffman MD [facility] [address] [place] [id number] 11/03/2019 18:35:14 11/04/2019 14:36:45 Diabetes mellitus 46936501 E11.9 Patient was advised to get a hemoglobin A1c. She is encouraged on continued to manage blood sugars. Advanced activities as he can tolerate work up slowly to hour a day. Hyperlipidemia 87600387 E78.5 Hypertensive disorder 38 298401 I10 Duodenal a nastomotic leak 741623946 K31.89 Patient is to stay nothing by mouth. He is to advance his activity slowly. Patient is to continue getting colostomy bags he will need 1 since he has had resection of his colon and reanastomo sis is not expected for another month. Patient did have a face-to-fa ce today. Patient also is to continue with tube feedings. There is a duodenal leak that is anticipate d repeat be repaired the end of November. [id number] Dianne borrero RN [facility] [address] [place] [address] 11/27/2019 10:59:48 11/27/2019 19:26:15 [id number] Dianne borrero RN [facility] [address] [place] [address] 12/21/2019 12:57:12 12/21/2019 13:25:56 [id number] Zofia Taylor RN [facility] [address] [place] [id number] 01/06/2020 14:33:16 01/06/2020 18:07:55 [id number] Marilee Roman RN, [facility] [address] [place] [address] 01/19/2020 15:13:40 01/19/2020 20:20:28 [id number] Dianne borrero RN [facility] [address] [place] [id number] 02/08/2020 16:26:08 02/08/2020 16:51:01 [id number] Zofia Taylor RN [facility] [address] [place] [address] 02/22/2020 14:34:10 02/22/2020 21:34:41 Health Concerns Section Related Observation LastModified by Organization Detai ls LastModified Time None Recorded Concern Status LastModified by Organization Details LastModified Time None Recorded Advance Directives Directive None Recorded Payers Insurance Date Sequence Insurance Name Policy Number Policy Landa Covered Member ID Landa Member ID Guarantor Name 08/13/2019 2 [employer] [id number] Dale Luna [id number] aDle Luna 08/25/2019 1 [facility] [id number] Dale Luna [id number] Dale Luna 08/13/2019 2 [employer] (PPO) Dale Luna [id number] Dale Luna 01/20/2020 1 [facility] [id number] Bharti Luna [id number] Dale Luna 02/22/2020 [facility] [id number] Dale Luna [id number] Dale Luna 02/22/2020 1 [facility] (POS) [id number] Dale Luna [id number] Dale Luna 01/20/2020 1 [facility] [id number] Dale Luna [id number] Dale Luna Notes Date Note Type Note Provider Name and Address Organization Details Recorded Time 12/21/2019 text/html Hospitalization Contact RecordReported bypatient.Follow UpHospital: [facility]; date of admit: (12/14/2019); date of discharge: (12/19/2019); date of contact: (12/21/2019) Patient contacted within 2 days of Hospital DC. You may use Transitional Care Management CPT code 41689/42959 for this visit. Please note, patient may need prescriptions for new medications started upon discharge. DC summary faxed to [employer] chart. Problem list reconciled from hospital problem list with patient s TCC problem list. Date of review: 12/21/2019 Medication list reconciled from hospital AVS (after visit summary) with patient s TCC medication list. The difference between discharge med list and current outpatient med list is noted: Start: Acetaminophen 500 mg tab, 2 tabs TID; Amoxicillin clavulanate 8975-125 mg tab BID; Insulin Lispro - inject 0-10 Units under the skin (SUBC) threetimes daily before meals. Humalog 1:15 carbcoverage for meals; Stop:HeparinChange: Lantus Clarify:Dose of atorvastatin - 10 mg BID or 20 mg BID, ? if taking simethicone, Tramadol Has the Patient Picked up Medications from their pharmacy: Yes Is patient scheduled for appropriate f/u, including HH or other referrals: will call today to set up appt with Dr. Navarro. Does pt have necessary DME or Oxygen supplies? Yes Action taken for medication changes as discussed with patient: reviewed, did cut Lantus dose but hasn't added Humalog because he isn't eating meals. Advised to keep an eye on clear liquid carbs, may need some coverage to keep blood sugars under control. Hospital Summary: Pt trans to [facility] for repeat percutaneous drain placement for retroperitoneal abscess. Culturegrew E Coli, Klebsiella, Enterococcus and Proteus.His drains are putting out 30-40 ccs of bile daily suggestive of an ongoing duodenal leak. He was discharged on a clear liquid diet with TPN and a short course of Augmentin. He is planned for follow-up with Dr. Navarro is two weeks. Spoke with Patient: Isn't doing too bad, home health care nurse will be coming out today. Drain isn't putting out much. Will call Dr. Coffman if blood sugars don't stay low enough with reduced insulin dose., declined HFU. Dianne Coombs RN Dianne Coombs, RN [address] [place], [address], [facility] - [facility] 12/21/2019 13:25:54 01/06/2020 text/html Hospitalization Contact RecordReported bypatient.Follow UpHospital: [place]; date of admit: (01/02/2020); date of discharge: (01/05/2020); date of contact: (01/06/2020) Follow up with Dr. Navarro 01/07/2020 via phone 9:00 am Patient contacted within 2 days of Hospital DC. You may use Transitional Care Management CPT code 26190/11023 for this visit. Please note, patient may need prescriptions for new medications started upon discharge. DC summary, urology consult note, and operative note faxed to [facility]. Problem list reconciled from hospital problem list with patient s TCC problem list. Date of review: 01/06/2020 Medication list reconciled from hospital AVS (after visit summary) with patient s TCC medication list. 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 CT imaging on 12/31 concerning for fistulous tract connecting to fluid collection - after discussing IR drainage deferred. Urology team consulted for CT finding of hydronephrosis and taken to OR on 01/03 for right ureteral stent placement. Plans to follow up with surgeon Dr. Bi Navarro 01/07/2020 to discuss definitive repair of fistula. Spoke with Patient: 01/06/2020 - doing better and has appointment with Dr. Navarro tomorrow. Pain is tolerable - is helping patient - taking Tylenol for the pain. Is moving closer to [facility] at the end of week - will be in [place] and will be getting a new home health nurse - currently have [facility] who will be out today or tomorrow. Blood glucose averaging about 140. Plans to move back to [place] - alf goal after surgery. Is drinking clear fluids. Has two drains - not much drainage - dressings clean/dry/intact. Denies fever or s/sx infection and using incentive spirometer. Declines need for HFU at this time and encouraged to call clinic if needed. Zofia Taylor RN [address] [place], [address], [facility] - [facility] 01/06/2020 18:07:53 01/19/2020 text/html Hospitalization Contact RecordReported bypatient.Follow UpHospital: [facility]; date of admit: (01/12/20); date of discharge: (01/18/20); date of contact: (01/19/20) Patient contacted within 2 days of Hospital DC. You may use Transitional Care Management CPT code 58504/20761 for this visit. Please note, patient may need prescriptions for new medications started upon discharge. DC SUMMARY NOT YET AVAILABLE Problem list reconciled from hospital problem list with patient s TCC problem list. Date of review: 01/19/20 Medication list reconciled from hospital AVS (after visit summary) with patient s TCC medication list. The difference between discharge med list and current outpatient med list is noted: Start:lidoderm, oxycodone NOT TAKING, sodium citrate-citric acid, tamsulosin, Stop: Change:Lantus to 8 units {there is insulin in his TPN also} Clarify:simethicone YES, tpn YES Has the Patient Picked up Medications from their pharmacy: Is patient scheduled for appropriate f/u, including HH or other referrals: Urology 02/17 Action taken for medication changes as discussed with patient: sodium citrate on order at pharmacy Hospital Summary: To ED for left flank pain. CT=2 4mm distal left ureteral stones with trace left hydroureteronephrosis . (A1C is 6.1% and on insulin, hypoglycemia?) Plan to readmit Saturday for duodenal fistula takedown, drain removal. Spoke with Patient: He reports Saturday is his [facility] surgery and he is ready for that. He isn't straining his urine. Did catch 2 stones while in hospital [place]. I let him know we will follow up with him after [facility] d/c. Marilee Roman RN, [facility] [address] [place], [phone], [facility] 01/19/2020 20:20:26 02/08/2020 text/html Hospitalization Contact RecordReported bypatient.Follow UpHospital: [facility]; date of admit: (01/22/2020); date of discharge: (02/07/2020); date of contact: (02/08/2020) Patient contacted within 2 days of Hospital DC. You may use Transitional Care Management CPT code 48170/17922 for this visit. Please note, patient may need prescriptions for new medications started upon discharge. DC summary faxed to [facility] chart. Problem list reconciled from hospital problem list with patient s TCC problem list. Date of review: 02/08/2020 Medication list reconciled from hospital AVS (after visit summary) with patient s TCC medication list. The difference between discharge med list and current outpatient med list is noted: Start: Metformin 1000 mg tab, 0.5 tabs BID for 3 days, then 1 tab BID with meals Change: Insulins changed to vials; Oxycodone Has the Patient Picked up Medications from their pharmacy: Yes Is patient scheduled for appropriate f/u, including HH or other referrals: Will see Dr. Navarro on . Does pt have necessary DME or Oxygen supplies? Yes Action taken for medication changes as discussed with patient: reviewed Hospital Summary: Pt admitted for takedown of a duodenal fistula. Recovery complicated by hemodynamic instability, hydronephrosis, milky output from TIMI drain confirmed to by Lymph leak and duodenal obstruction. PEG tube placed. Obstruction resolved, TIMI drain removed. DC'd to home, to f/u with surgery. Spoke with Patient: Phone wasn't working well, he plans to f/u with Dr. Navarro, declined HFU. Dianne Coombs RN [address] [place], [phone], [facility] [place] [facility] 02/08/2020 16:50:59 02/22/2020 text/html Hospitalization Contact RecordReported bypatient.Follow UpHospital: [facility]; date of admit: (02/11/2020); date of discharge: (02/20/2020); date of contact: (02/22/2020) Follow up with Dr. Navarro in one weekFollow up with urology Patient contacted within 2 days of Hospital DC. You may use Transitional Care Management CPT code 98919/87140 for this visit. Please note, patient may need prescriptions for new medications started upon discharge. DC summary and consult notes faxed to [facility] chart. Problem list reconciled from hospital problem list with patient s TCC problem list. Date of review: 02/22/2020 Medication list reconciled from hospital AVS (after visit summary) with patient s TCC medication list. The difference between discharge med list and current outpatient med list is noted: Start: dronabinol, insulin glargine, lactated ringers, NaCL, oxycodone Stop:Insulin glargine Change: Lispro, Metformin Clarify: Hospital Summary: Patient is status post duodenal fistula takedown on 01/21 c/b lymphatic leak and gastric remnant distention s/p IR placed G-tube He was readmitted 02/10 with dehydration and poor PO intake. Spoke with Patient: 02/22/2020 - having issues with blood pressure and dehydration - has spoken with provider at [facility] today. Last blood pressure 90/46 - waiting on [employer] for extra fluids. Losing energy and is fatigued - denies headache right now. Trying to drink additional fluids but just comes out of his bag and unable to retain. Has moved to [facility] now - patient just wants to get back to [place]. Instructed to go to ED for fluid and ask for additional IV fluid bags. Patient not wanting to be admitted again at the hospital. Notified provider who agrees to instruct patient to go to ED. Verbalized understanding. Zofia Taylor, ADALGISA [address] [place], [address], [facility] - [facility] 02/22/2020 21:34:40
--- OUTSIDE RECORDS SUMMARY | 2025-02-16 19:21 | XMS_ITS | Clinical Summary ---
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 Name Role Phone Lakesha Khan MD Primary Care Provider [facility] Care, [place] Unavailable [phone] Nurses, Advanced Heart Failure Unavailable + Hernesto Jolly [facility] Unavailable [phone] Allergies Active Allergy Reactions Criticality Noted Date Comments Bupropion Dizziness,Other - Describe In Comment Field,*Unknown 06/02/2013 light headed Oxycodone Confusion,Other - Describe In Comment Field Low 03/20/2023 gets really stupid Propoxyphene *Unknown Low 10/12/2024 Propoxyphene-Acetaminoph en Other - Describe In Comment Field,Mental Status Change 06/02/2013 hot flashes Spironolactone Dizziness,Headache 07/28/2023 Splitting headache when increased dose Medications MULTIVITAMIN TAB take 1 tablet by oral route once daily with food 0 008 Active acetaminophen (TYLENOL EXTRA STRGTH) 500 mg tabletIndications :Closed fracture of multiple ribs of right side, initial encounter Take 1 Tablet (500 mg) by mouth 3 times daily if needed for Pain. Max acetaminophen dose: 4000mg in 24 hrs. 0 022 Active nitroglycerin (NITROSTAT) 0.4 mg sublingual tabletIndications :ASHD (arteriosclerotic heart disease),S/P drug eluting coronary stent placement Place 1 Tablet (0.4 mg) under the tongue every 5 minutes if needed for Chest Pain. Up to 3 tablets in 15 minutes. 25 Tablet 1 07/29/20 23 2:49 PM [employer] 023 Active FreeStyle Jordana 2 ReaderIndications :Type 2 diabetes mellitus with diabetic polyneuropathy, with long-term current use of insulin (HC) To be used to read blood sugars per stained glass painter's directions. 1 Each 024 Active empagliflozin (JARDIANCE) 10 mg tabletIndications :Type 2 diabetes mellitus with diabetic polyneuropathy, with long-term current use of insulin (HC) Take 1 Tablet (10 mg) by mouth once daily. 100 Tablet 3 024 Active metFORMIN (GLUCOPHAGE XR) 500 mg Extended-Release tabletIndications :Type 2 diabetes mellitus with diabetic polyneuropathy, with long-term current use of insulin (HC) TAKE TWO TABLETS BY MOUTH TWICE DAILY WITH MEALS 400 Tablet 3 024 Active aspirin (ECOTRIN) 81 mg enteric coated tabletIndications :Essential hypertension Take 1 Tablet (81 mg) by mouth once daily with a meal. 90 Tablet 3 024 Active insulin lispro, U-100, (HUMALOG KWIKPEN; ADMELOG SOLOSTAR) 100 unit/mL inpn penIndications:Ty pe 2 diabetes mellitus with diabetic polyneuropathy, with [...] mcg under the tongue once daily. Active atorvastatin 40 mg tabletIndications :Type 2 diabetes mellitus with diabetic polyneuropathy, with long-term current use of insulin (HC) Take 1 Tablet (40 mg) by mouth at bedtime. 100 Tablet 2 025 Active metoprolol succinate (Toprol XL) 25 mg Sustained-Release tabletIndications :Coronary atherosclerosis due to calcified coronary lesion of sh[place]nak artery,Acute HFrEF (heart failure with reduced ejection fraction) (HC) Take 0.5 Tablets (12.5 mg) by mouth once daily. 45 Tablet 3 025 Active DULoxetine 60 mg Delayed-release capsuleIndication s:Depressed mood Take 1 Capsule (60 mg) by mouth once daily. 93 Capsule 3 025 Active gabapentin 300 mg capsuleIndication s:Spinal stenosis of lumbar region with neurogenic claudication Take 3 Capsules (900 mg) by mouth three times daily. 025 Active Lantus Solostar U-100 Insulin 100 unit/mL (3 mL) penIndications:Ty pe 2 diabetes mellitus with diabetic polyneuropathy, with long-term current use of insulin (HC) Inject 18 units subcutaneous before bedtime. 20 mL 3 025 Active sacubitril-valsar lan (ENTRESTO 24 MG-26 MG TABLET) 24-26 mg tabletIndications :HFrEF (heart failure with reduced ejection fraction) (HC) Take 1 Tablet by mouth two times daily. 180 Tablet 3 Active Pen Needle 32 gauge x 5/32 (disposable insulin pen needle)Indication s:Type 2 diabetes mellitus with diabetic polyneuropathy, with long-term current use of insulin (HC) Inject subcutaneous. Remove the 2 covers on the insulin pen needle before administering insulin dose four times daily 400 Each 3 025 Active clopidogreL 75 mg tabletIndications :NSTEMI (non-ST elevated myocardial infarction) (HC) TAKE ONE TABLET BY MOUTH ONE TIME DAILY 90 Tablet 1 025 Active LORazepam 1 mg tabletIndications :Anxiety due to invasive procedure Take 1 Tablet (1 mg) by mouth one time for 1 dose. 1 Tablet 025 Active furosemide 20 mg tabletIndications :Acute HFrEF (heart failure with reduced ejection fraction) (HC) TAKE ONE TABLET BY MOUTH IN THE MORNING 90 Tablet 3 025 Active continuous glucose monitor SENSOR KIT (FreeStyle Jordana 2 Sensor)Indication s:Type 2 diabetes mellitus with diabetic polyneuropathy, with long-term current use of insulin (HC) Change sensor every 14 days AND USE DIRECTED 6 Each 025 Active continuous glucose monitor SENSOR KIT (FreeStyle Jordana 2 Sensor)Indication s:Type 2 diabetes mellitus with diabetic polyneuropathy, with long-term current use of insulin (HC) Change sensor every 14 days AND USE DIRECTED 6 Each 025 2024 Discontinued(* Availability/F ormulary change/Cost of medication) furosemide 20 mg tabletIndications :Acute HFrEF (heart failure with reduced ejection fraction) (HC) Take 1 Tablet (20 mg) by mouth once daily in the morning. 30 Tablet 3 025 2024 Discontinued LORazepam 1 mg tabletIndications :Anxiety due to invasive procedure Take 1 Tablet (1 mg) by mouth one time for 1 dose. 1 Tablet 025 2024 Discontinued(R eorder (E-cancel not sent)) Active Problems Problem Noted Date Diagnosed Date Syncope 12/09/2024 Skin ulcer, unspecified ulcer stage 08/19/2024 Acute [...] ASCVD (arteriosclerotic cardiovascular disease) 05/27/2023 Overview (07/31/2023): [id number] MYOCARDIAL INFARCTION on 07/26/23. He is to stay on Plavix and aspirin for at least a year. Coronary atherosclerosis due to calcified coronary lesion of shungnak artery 05/27/2023 Sleep apnea 11/29/2022 11/29/2022 Overview [...] Encounters Date Type Department Care Team Description 02/16/2025 Travel 02/15/2025 Telephone [facility] [address] [facility] [address] [place] [address] Hernesto Jolly [facility] Concerns (/) 02/12/2025 Travel 02/08/2025 Telephone [facility] [address] [place] [address] Lakesha Khan MD Questions 02/05/2025 Telephone [facility] [address] [place] [address] Sancho Madrid MD Results 02/04/2025 Refill [facility] [address] [place] [address] Lakesha Khan MD Refill Request (Freestyle Jordana 2 Sensor) 01/31/2025 Refill [facility] [address] [facility] [address] [place] [phone] Tiffanie Warren NP Refill Request (Furosemide) 01/29/2025 7:15 AM CDT Ancillary Procedure [facility] [address] [place] [address] 01/28/2025 Travel 01/27/2025 8:30 AM CDT Office Visit [facility] [address] [place] [address] Smiley Pelletier LICSW Follow Up 01/27/2025 Travel 01/23/2025 Travel 01/22/2025 Travel 01/15/2025 10:30 AM CDT Office Visit [address] [address] Smiley Pelletier LICSW Depression; Follow Up 01/15/2025 Travel 01/14/2025 Telephone [facility] [address] [place] [address] Lakesha Khan MD Colorectal Cancer Screening (Cologuard /No Result Obtained /) 01/11/2025 Refill [facility] [address] [place] [address] Lakesha Khan MD Refill Request (Clopidogrel) 01/10/2025 Travel 01/01/2025 9:30 AM CDT Office Visit [address] [address] Smiley Pelletier LICSW Anxiety 01/01/2025 Travel 12/27/2024 Travel 12/24/2024 10:00 AM CDT Office Visit [facility] [address] [place] [address] Sancho Madrid MD Musculoskeletal Problem (Follow up right shoulder pain, had ultrasound guided injection on 11/25/24) 12/23/2024 Travel 12/22/2024 4:00 PM CDT Ancillary Procedure [facility] [address] [place] [address] 12/22/2024 9:30 AM CDT Office Visit [address] [address] Smiley Pelletier LICSW Follow Up 12/22/2024 Travel 12/19/2024 Travel 12/17/2024 12:40 PM CDT Office Visit [facility] [address] [place] [address] Lakesha Khan MD Hospital F/U (For palpitations and chest pain) 12/17/2024 8:15 AM CDT Ancillary Procedure [facility] [address] [place] [address] 12/17/2024 Travel 12/16/2024 Travel 12/15/2024 9:30 AM CDT Office Visit [facility] [address] [facility] [address] [place] [address] Hernesto Jolly, [facility] Follow Up (3 month F/U, labs prior. 11/27 echo, 12/09 loop recorder and xray. Pt states he went to the hospital 12/09. Currently feels SOB, no cardiac symptoms since . ) 12/15/2024 8:42 AM CDT - 12/15/2024 11:59 PM CDT Hospital Encounter [facility] [address] [place] [address] HFrEF (heart failure with reduced ejection fraction) (HC) 12/15/2024 Travel 12/15/2024 Telephone [facility] [address] [facility] [address] [place] [phone] Brenton Estrada MD Care Coordination 12/12/2024 Travel 12/11/2024 Telephone [facility] [address] [place] [address] Smiley Pelletier [facility] Follow Up 12/11/2024 Patient Outreach [facility] [address] [place] [address] Catalina Espinosa, ADALGISA Primary RN Care Management; Hospital F/U (Lace=70) 12/10/2024 Travel 12/09/2024 12:39 PM CDT - 12/10/2024 3:08 PM CDT Hospital Encounter [facility] [address] [place] [address] Josef Ramirez MD [facility], [facility], MD Jennifer Palacio, MD Shanel Garcia (Primary Dx); Chest pain, unspecified type; Palpitations; Syncope, unspecified syncope type; Acute HFrEF (heart failure with reduced ejection fraction) (HC); NSTEMI (non-ST elevated myocardial infarction) (HC) Discharge Disposition: Home Self Care 12/09/2024 10:30 AM CDT Office Visit [facility] [address] [place] [address] Smiley Pelletier LICSW Anxiety 12/09/2024 Travel 12/07/2024 11:00 AM CDT Office Visit [facility] [address] [facility] [address] [place] [address] Brenton Estrada MD Follow Up (F/U. Echo 11/27. Device check 10/29. Pt states feeling good. No recent cardiac symptoms. ) 12/07/2024 Travel 12/05/2024 Travel 12/04/2024 Travel 12/02/2024 Travel 12/01/2024 Telephone [facility] [address] [place] [address] Laura Nash MD Results 11/30/2024 9:30 AM CDT Office Visit [facility] [address] [place] [address] Smiley Pelletier LICSW Follow Up 11/30/2024 Travel 11/27/2024 9:06 AM CDT - 11/27/2024 11:59 PM CDT Hospital Encounter [facility] [address] [place] [address] Laura Nash MD Coronary atherosclerosis due to calcified coronary lesion of shungnak artery; HFrEF (heart failure with reduced ejection fraction) (HC); NSTEMI (non-ST elevated myocardial infarction) (HC) 11/27/2024 Travel 11/25/2024 8:35 AM CDT Procedure Only [facility] [address] [place] [address] Sancho Madrid MD Procedure (USGI Right shoulder glenohumera... 11/25/2024 Travel 11/23/2024 9:30 AM CDT Office Visit [facility] [address] [place] [address] Tirso Kelley, [facility] Visit 11/23/2024 Travel 11/20/2024 Travel 2024 Travel 11/17/2024 10:30 AM CDT Office Visit [facility] [address] [place] [address] Tirso Kelley, [facility] Visit 11/17/2024 Travel from Last 3 Months Immunizations Immunization Administration Dates Next Due COVID-19 VACCINE SPIKEVAX (M ODERNA 50MCG/0.5ML) 12YO+ PFS 12/17/2024,05/07/2024 COVID-19 vaccine (Moderna 100mcg/0.5mL) PF, MDV 05/12/2021,11/29/2020,11/01/2020 [...] Medical History Relation Name Comments Cancer-colon Mother isidro age 69 Heart Disease Sister 1 Cancer-prostate No Family History Diabetes No Family History Relation Name Status Comments Father Mother isidro Sister 1 Alive Sister 2 Alive Social History Tobacco Use Types Packs/Day Years Used Date Smoking Tobacco: Never Smokeless Tobacco: Never Tobacco Cessation:Counseling Given: Yes Alcohol Use Standard Drinks/Week Comments Yes 1 (1 standard drink = 0.6 oz pur e alcohol) socially PHQ-2 Answer Date Recorded PHQ-2 TOTAL SCORE 2 11/12/2024 Social Connections Answer Date Recorded Do you [...] or yelled at (see row info)? No 12/09/2024 Interpersonal Safety Abuse 12 - 18 Not on file 12/09/2024 Interpersonal Safety Ambulatory Vulnerability No t on file 12/09/2024 Utilities Answer Date Recorded Do you have trouble paying f or utilities (for example, heat, electricity, water, phone)? 1 08/03/2024 Sex and Gender Information Value Date Recorded Sex Assigned at Male 04/28/2021 10:10 PM CDT Legal Sex Male 6:41 AM [employer] Gender Identity Male 04/28/2021 10:10 PM CDT Sexual Orientation Straight 04/28/2021 10 :10 PM CDT Occupation Industry Job Start Date Job End Date Not on file Not on file Not on file Not on file Obstetrics History Last Filed Vital Signs Vital Sign Reading Time Taken Comments Blood Pressure 87/65 12/24/2024 9:59 AM CDT Pulse 87 12/24/2024 9:59 AM CDT Temperature 36.7 C (98.1 F) 12/24/2024 9:59 AM CDT Respiratory Rate 13 12/10/2024 8:45 AM CDT Oxygen Saturation 97% 12/24/2024 9:59 AM CDT Inhaled Oxygen Concentration - - Weight 110.2 kg (243 lb) 12/17/2024 12:40 PM CDT Height 188 cm (6' 2) 12/15/2024 9:16 AM CDT Body Mass Index 31.2 12/15/2024 9:16 AM CDT Plan of Treatment Upcoming Encounters Date Type Department Care Team (Late st Contact Info) Description 02/17/2025 9:30 AM CDT Office Visit [facility] [address] [facility] [address] [place] [phone] Ivy Ferreira, FORM L[employer]ER [address] [place] [address] 02/24/2025 9:10 AM CDT Office Visit [facility] [address] [place] [address] Lakesha Khan MD [address] [place] [address] 03/01/2025 9:20 AM CDT Office Visit [facility] [address] [place] [address] Sancho Madrid MD [address] [place] [address] 03/18/2025 2:[address] [facility] [address] [facility] [place] [address] 03/18/2025 3:00 PM CDT Office Visit [facility] [address] [facility] [address] [place] [phone] Hernesto Jolly, [facility] [address] [facility] [address] [place] [address] 04/29/2025 Cardiac Device Check [facility] [phone] Health Maintenance Due Date Last Done Comments Tetanus booster 08/13/2024 08/13/2014, 08/2005, 08/28/1999 Influenza Vaccine (#1) 2025 , 05/24/2021, 05/20/2020, Additional history exists Depression screening for age 12+ 11/12/2025 11/12/2024, 10/07/2023, 08/19/2023, Additional history exists Medicare Wellness for age 65+ 11/13/2025 11/12/2024, 02/18/2023 BMI (ht and wt on same day) for age 18+ 12/15/2025 12/15/2024, 12/07/2024, 11/12/2024, Additional history exists Fecal testing sDNA-FIT (Cologuard) for age 45-75 02/02/2028 02/01/2025, 12/14/2021, 12/14/2021 Lipids for age 45-75 08/02/2029 08/02/2024, 09/19/2023, 05/27/2023, Additional history exists Hepatitis C screening for age 18-79 Completed 04/16/2017 Zoster (shingles) series for age 50+ Completed 07/29/2020, 12/03/2018 Pneumococcal series for age 50+ Completed 04/30/2022, 05/26/2013, 06/19/2006, Additional history exists RSV vaccine for adults or Completed 06/20/2023 COVID-19 vaccine series Completed 12/18/19 25, 05/07/2024, 11/21/2023, Additional history exists Hepatitis B series for 19+ Aged Out N o longer eligible based on patient's age to complete this topic Procedures Procedure Name Priority Date/Time Associated Diagnosis Comments SDNA-FIT EXTERNAL (COLOGUARD) Routine 02/01/2025 7:30 PM CDT Screening for colon cancer MR SPINE CERVICAL WO Routine 01/29/2025 8:05 AM CDT DDD (degenerative disc disease), cervical Cervical radiculopathy SDNA-FIT EXTERNAL (COLOGUARD)- Unsuccessful Attempt Routine 12/30/2024 8:30 AM CDT Screening for colon cancer CT CHEST WO Routine 12/22/2024 3:28 PM CDT Rib pain on right side Capsulitis of right shoulder Closed nondisplaced fracture of body of right scapula with routine healing, subsequent encounter US CAROTID DUPLEX BILATERAL Routine 12/17/2024 8:49 AM CDT Coronary artery disease involving shungnak coronary artery of shungnak heart without angina pectoris Dizziness PRO-BNP Today 12/15/2024 8:57 AM CDT HFrEF (heart failure with reduced ejection fraction) (HC) COMP METABOLIC PANEL Today 12/15/2024 8:57 AM CDT HFrEF (heart failure with reduced ejection fraction) (HC) CBC W PLT NO DIFF Today 12/15/2024 8:5 7 AM CDT HFrEF (heart failure with reduced ejection fraction) (HC) SCAN CORRESP-EKG RESULTS 12/10/2024 1:56 PM CDT GLUCOSE METER Timed 12/10/2024 11:11 AM CDT SCAN-CARDIAC STRIP 12/10/2024 10 :09 AM CDT GLUCOSE METER Timed 12/10/2024 7:54 AM CDT CREATININE Early AM 12/10/2024 6:45 AM CDT POTASSIUM Early AM 12/10/2024 6:45 AM CDT SODIUM Early AM 12/10/2024 6:45 AM CDT SCAN-CARDIAC STRIP 12/10/2024 5: 18 AM CDT SCAN-CARDIAC STRIP 12/09/2024 10 :15 PM CDT GLUCOSE METER Timed 12/09/2024 9:19 PM CDT GLUCOSE METER Timed 12/09/2024 4:37 PM CDT ALT (SGPT) STAT 12/09/2024 4:05 PM CDT AST (SGOT) STAT 12/09/2024 4:05 PM CDT TROPONIN T (HS) ONE TIME Timed 12/09/2024 4:05 PM CDT EXTRA TUBE GOLD/SST Today 12/09/2024 4 :02 PM CDT ELECTRONIC ANALYSIS ILR SYSTEM Routine 12/09/2024 1:35 PM CDT XR CHEST 1 VIEW PORTABLE STAT 12/09/2024 1:24 PM CDT CBC WITH AUTO DIFFERENTIAL STAT 12/09/2024 1:08 PM CDT PRO-BNP STAT 12/09/2024 1:08 PM CDT TROPONIN T (HS) ACUTE W/2HR REFLEX STAT 12/09/2024 1:08 PM CDT COMP METABOLIC PANEL STAT 12/09/2024 1:08 PM CDT CBC WITH AUTO DIFFERENTIAL STAT 12/09/2024 1:08 PM CDT EKG 12 LEAD STAT 12/09/2024 12:58 PM CDT EKG 12 LEAD Routine 12/07/2024 10:34 AM CDT Acute HFrEF (heart failure with reduced ejection fraction) (HC) Ischemic cardiomyopathy ECHO TTE LIMITED W CONTRAST W COLOR W DOPPLER Routine 11/27/2024 9:55 AM CDT Coronary atherosclerosis due to calcified coronary lesion of shungnak artery HFrEF (heart failure with reduced ejection fraction) (HC) NSTEMI (non-ST elevated myocardial infarction) (HC) BEDSIDE US STUDY ARCHIVE Routine 11/25/2024 11:09 AM CDT Capsulitis of right shoulder LIPID PANEL FREDI 08/02/2024 8:07 PM [employer] ANTI HCV Routine 04/16/2017 9:14 AM CDT Encounter for hepatitis C screening test for low risk patient from Last 3 Months or Most Recently Relevant to Health Maintenance Results * SDNA-FIT EXTERNAL (COLOGUARD) (02/01/2025 7:30 PM CDT) Only the most recent of2 resultswithin the time period is included. NONINV COLON CA DNA+OCC BLD SCRN STL-IMP Negative Negative 02/05/2025 8:13 AM CDT [facility] (CLIA #:[id number]) Comment: The Cologuard (TM) test was performed on this specimen. NEGATIVE TEST RESULT. A negative Cologuard result indicates a low likelihood that a colorectal cancer (CRC) or advanced adenoma (adenomatous polyps with more advanced pre-malignant features) is present. The chance that a person with a negative Cologuard test has a colorectal cancer is less than 1 in 1500 (negative predictive value >99.9%) or has an advanced adenoma is less than 5.3% (negative predictive value 94.7%). These data are based on a prospective cross-sectional study of 10,000 individuals at average risk for colorectal cancer who were screened with both Cologuard and colonoscopy. (Nick Burns, N Engl J Med 2014;370(14):1286- 1297) The normal value (reference range) for this assay is negative. COLOGUARD RE-SCREENING RECOMMENDATION: Periodic colorectal cancer screening is an important part of preventive healthcare for asymptomatic individuals at average risk for colorectal cancer. Following a negative Cologuard result, the [place] Cancer Society and U.S. Multi-Society Task Force screening guidelines recommend a Cologuard re-screening interval of 3 years. References: [place] Cancer Society Guideline for Colorectal Cancer Screening: https://www.cancer.org/cancer/tmngy-mxppkf-kgrihl/gzrfgveuz-qdpcqiacn-wiisrvi/ac s-rec ommendations.html.; Orville DK, Parul CR, Anayeli BillingsleyK, Colorectal Cancer Screening: Recommendations for Physicians and Patients from the U.S. Multi-Society Task Force on Colorectal Cancer Screening , Am J Gastroenterology 2017; 112:7152-1919. TEST DESCRIPTION: Composite algorithmic analysis of stool DNA-biomarkers with hemoglobin immunoassay. Quantitative values of individual biomarkers are not reportable and are not associated with individual biomarker result reference ranges. Cologuard is intended for colorectal cancer screening of adults of either sex, 45 years or older, who are at average-risk for colorectal cancer (CRC). Cologuard has been approved for use by the U.S. FDA. The performance of Cologuard was established in a cross sectional study of average-risk adults aged 50-84. Cologuard performance in patients ages 45 to 49 years was estimated by sub-group analysis of near-age groups. Colonoscopies performed for a positive result may find as the most clinically significant lesion: colorectal cancer [4.0%], advanced adenoma (including sessile serrated polyps greater than or equal to 1cm diameter) [20%] or non- advanced adenoma [31%]; or no colorectal neoplasia [45%]. These estimates are derived from a prospective cross-sectional screening study of 10,000 individuals at average risk for colorectal cancer who were screened with both Cologuard and colonoscopy. (Nick Burns, N Engl J Med 2014;370(14):1999-9870.) Cologuard may produce a false negative or false positive result (no colorectal cancer or precancerous polyp present at colonoscopy follow up). A negative Cologuard test result does not guarantee the absence of CRC or advanced adenoma (pre-cancer). The current Cologuard screening interval is every 3 years. ([place]izen [place] Cancer Society and U.S. Multi-Society Task Force). Cologuard performance data in a 10,000 patient pivotal study using colonoscopy as the reference method can be accessed at the following location: www.Remember The Member/results. Additional description of the Cologuard test process, warnings and precautions can be found at www.[email or web address].com. Stool specimen (specimen) (Rectum) 02/01/2025 7:30 PM CDT 02/03/2025 11:49 AM CDT us Lakesha Khan MD URINE Final Resul t [facility] (CLIA #:[id number]) [address] [place] [address], * MR SPINE CERVICAL WO (01/29/2025 8:05 AM CDT) Anatomical Region Laterality Modality Spine, CERVICAL SPINE Magnetic R esonance 01/30/2025 7:24 AM CDT Narrative 01/30/2025 7:24 AM CDT For Patients: As a result of the Cures Act, medical imaging exams and procedure reports are released immediately into your electronic medical record. You may view this report before your referring provider. If you have questions, please contact your health care provider. Indication: Degenerative disc disease. Cervical radiculopathy. Technique: Multiplanar multisequence noncontrast MR images of the cervical spine. Comparison: CT cervical spine 08/11/2024. Findings: Mild rightward cervical curvature. Straightening of the cervical lordosis. No acute fracture. No T1 hypointense lesions. The cervical cord is normal in signal intensity. C2-3: Shallow disc bulge. Ligamentum flavum thickening. Wunr-zy-ykfzczjo left facet arthropathy. Gscx-pz-esemriik spinal canal narrowing. No neural foraminal narrowing. C3-4: Vertebral body and left facet ankylosis. Dorsal endplate spondylitic ridge. Left uncinate spurring. Minimal spinal canal narrowing. Mild left without right neural foraminal narrowing. C4-5: Mild disc height loss. Right eccentric posterior disc osteophyte complex. Ligamentum flavum thickening. Right uncinate spurring. Mild facet arthropathy. Mild spinal canal narrowing. Mild right without left neural foraminal narrowing. C5-6: Solid anterior fusion. Facet ankylosis. No spinal canal or neural foraminal stenosis. C6-7: Solid anterior fusion. Facet ankylosis. No spinal canal narrowing. Mild right without left neural foraminal narrowing. C7-T1: Moderately advanced disc height loss. Mild vertebral body edema. Posterior disc bulge. Ligamentum flavum thickening. Uncinate spurring. Moderately advanced facet arthropathy. Mild spinal canal narrowing. Jzyu-fh-gcwykktr bilateral neural foraminal narrowing. Edema right articulating facets. T1-2: No spinal canal or neural foraminal narrowing. Impression: 1. Multilevel cervical spondylosis without spinal canal stenosis. 2. At C7-T1, mild to moderate bilateral neural foraminal narrowing. Edema in the right articulating facets is compatible with a stress response. Mild discogenic vertebral body edema. 3. Postsurgical changes of solid anterior fusion from C5 through C7. Dictated by Freedom Salomon MD @ 01/30/2025 7:24:25 AM (Electronically Signed) Procedure Note Freedom Salomon MD - 01/30/2025 For Patients: As a result of the Century Cures Act, medical imagingexams and procedure reports are released immediately into your electronicmedical record. You may view this report before your referring provider.If you have questions, please contact your health care provider. Indication: Degenerative disc disease. Cervical radiculopathy. Technique: Multiplanar multisequence noncontrast MR images of the cervical spine. Comparison: CT cervical spine 08/11/2024. Findings: Mild rightward cervical curvature. Straightening of the cervical lordosis.No acute fracture. No T1 hypointense lesions. The cervical cord is normalin signal intensity. C2-3: Shallow disc bulge. Ligamentum flavum thickening. Djuy-ji-axrxibbsfsqf facet arthropathy. Dfso-el-qmqincps spinal canal narrowing. No neuralforaminal narrowing. C3-4: Vertebral body and left facet ankylosis. Dorsal endplate spondyliticridge. Left uncinate spurring. Minimal spinal canal narrowing. Mild leftwithout right neural foraminal narrowing. C4-5: Mild disc height loss. Right eccentric posterior disc osteophytecomplex. Ligamentum flavum thickening. Right uncinate spurring. Mild facetarthropathy. Mild spinal canal narrowing. Mild right without left neuralforaminal narrowing. C5-6: Solid anterior fusion. Facet ankylosis. No spinal canal or neuralforaminal stenosis. C6-7: Solid anterior fusion. Facet ankylosis. No spinal canal narrowing.Mild right without left neural foraminal narrowing. C7-T1: Moderately advanced disc height loss. Mild vertebral body edema.Posterior disc bulge. Ligamentum flavum thickening. Uncinate spurring.Moderately advanced facet arthropathy. Mild spinal canal narrowing.Bdxa-ba-dvsihwmp bilateral neural foraminal narrowing. Edema rightarticulating facets. T1-2: No spinal canal or neural foraminal narrowing. Impression: 1. Multilevel cervical spondylosis without spinal canal stenosis. 2. At C7-T1, mild to moderate bilateral neural foraminal narrowing. Edemain the right articulating facets is compatible with a stress response.Mild discogenic vertebral body edema. 3. Postsurgical changes of solid anterior fusion from C5 through C7. Dictated by Freedom Salomon MD @ 01/30/2025 7:24:25 AM (Electronically Signed) Sancho Madrid MD MR Final Resu lt * CT CHEST WO (12/22/2024 3:28 PM CDT) Anatomical Region Laterality Modality CHEST, THORAX, HEART Computed To mography 12/23/2024 6:53 PM CDT Impressions 12/23/2024 6:53 PM CDT 1. No acute intrathoracic pathology. 2. Healed displaced fracture deformities of the right posterior 5th and 6th ribs with additional chronic left-sided rib fracture deformities as well. 3. Coronary artery calcifications. Please note that all CT scans at this facility use dose modulation, iterative reconstruction, and/or weight-based dosing when appropriate to reduce radiation dose to as low as reasonably achievable. Dictated by Jared Deutsch MD @ 12/23/2024 6:53:57 PM (Electronically Signed) Narrative 12/23/2024 6:53 PM CDT For Patients: As a result of the Cures Act, medical imaging exams and procedure reports are released immediately into your electronic medical record. You may view this report before your referring provider. If you have questions, please contact your health care provider. INDICATION: Right-sided rib pain. TECHNIQUE: CT chest without contrast. COMPARISON: CT chest 08/09/2024. CT scapula 09/09/2024. FINDINGS: Lungs and pleura: Bibasilar atelectasis/scarring. No suspicious pulmonary nodule or mass. No focal consolidation. No pleural effusion or pneumothorax. Heart and vasculature: No cardiomegaly or pericardial effusion. There are coronary artery calcifications as well as atherosclerotic calcifications of the aorta. Main pulmonary artery normal in caliber. No thoracic aortic aneurysm. Lymph nodes/mediastinum: Mildly prominent mediastinal lymph nodes are grossly unchanged. No suspicious lymphadenopathy. Chest wall: No suspicious chest wall mass or fluid collection. Upper abdomen: Postoperative changes of the stomach. Prominent atherosclerotic calcifications. Bilateral renal cysts. No acute abnormality. Bones: No acute abnormality. Healed fracture deformities of the right posterior 5th and 6th ribs. Additional chronic left-sided rib fracture deformities also noted. Procedure Note Jared Deutsch MD - 12/23/2024 For Patients: As a result of the Cures Act, medical imagingexams and procedure reports are released immediately into your electronicmedical record. You may view this report before your referring provider.If you have questions, please contact your health care provider. INDICATION: Right-sided rib pain. TECHNIQUE: CT chest without contrast. COMPARISON: CT chest 08/09/2024. CT scapula 09/09/2024. FINDINGS: Lungs and pleura: Bibasilar atelectasis/scarring. No suspicious pulmonarynodule or mass. No focal consolidation. No pleural effusion orpneumothorax. Heart and vasculature: No cardiomegaly or pericardial effusion. There arecoronary artery calcifications as well as atherosclerotic calcificationsof the aorta. Main pulmonary artery normal in caliber. No thoracic aorticaneurysm. Lymph nodes/mediastinum: Mildly prominent mediastinal lymph nodes aregrossly unchanged. No suspicious lymphadenopathy. Chest wall: No suspicious chest wall mass or fluid collection. Upper abdomen: Postoperative changes of the stomach. Prominentatherosclerotic calcifications. Bilateral renal cysts. No acuteabnormality. Bones: No acute abnormality. Healed fracture deformities of the rightposterior 5th and 6th ribs. Additional chronic left-sided rib fracturedeformities also noted. IMPRESSION: 1. No acute intrathoracic pathology. 2. Healed displaced fracture deformities of the right posterior 5th and6th ribs with additional chronic left-sided rib fracture deformities aswell. 3. Coronary artery calcifications. Please note that all CT scans at this facility use dose modulation,iterative reconstruction, and/or weight-based dosing when appropriate toreduce radiation dose to as low as reasonably achievable. Dictated by Jared Deutsch MD @ 12/23/2024 6:53:57 PM (Electronically Signed) us Sancho Madrid MD CT Final Resu lt * US CAROTID DUPLEX BILATERAL (12/17/2024 8:49 AM CDT) Anatomical Region Laterality Modality CAROTID, NECK Ultrasound 12/17/2024 7:08 AM CDT Narrative 12/17/2024 10:28 AM CDT VASCULAR ULTRASOUND REPORT HARRY LUNA : 1955 Study Date: 12/17/2024 7:08:08 AM Age: 69 years Tech: BSG Gender: M Referring MD: HERNESTO JOLLY Site: [facility] Study performed: Carotid Indication for Study: CAD Study Quality: Good TECHNIQUE: The extracranial carotid arteries, vertebral arteries and subclavian arteries were examined per exam protocol with duplex ultrasound, color-flow and spectral Doppler. Flow velocities including peak systolic (PSV), end diastolic (EDV), and velocity ratios if applicable were documented at sites per exam protocol. IMPRESSION: 1. Based on the ICA velocities, ICA/CCA ratio, and 2D images there is plaque causing <50% stenosis in the right internal carotid artery and there is plaque causing <50% stenosis in the left internal carotid artery. 2. Normal antegrade flow in the right vertebral artery and normal antegrade flow in the left vertebral artery. 3. Multiphasic flow in the right subclavian artery consistent with no flow limiting stenosis and multiphasic flow in the left subclavian artery consistent with no flow limiting stenosis. COMPARISON: No prior study available for comparison. RIGHT FINDINGS: Antegrade flow in the right vertebral artery. Multiphasic flow in the right subclavian artery consistent with no flow limiting stenosis. LEFT FINDINGS: Antegrade flow in the left vertebral artery. Multiphasic flow in the left subclavian artery consistent with no flow limiting stenosis. MEASUREMENTS: +--------+--------+------+--------+--------+ RIGHT RIGHT LEFT LEFT +--------+--------+------+--------+--------+ PSV cm/s EDV cm/s Vessel PSV cm/s EDV cm/s +--------+--------+------+--------+--------+ 47 6 P. CCA 57 11 +--------+--------+------+--------+--------+ 44 9 D. CCA 51 10 +--------+--------+------+--------+--------+ 46 13 P. ICA 40 13 +--------+--------+------+--------+--------+ 46 15 M. ICA 45 14 +--------+--------+------+--------+--------+ 46 13 D. ICA 49 16 +--------+--------+------+--------+--------+ 56 2 ECA 84 12 +--------+--------+------+--------+--------+ +-----+ +----+ RIGHT LEFT +-----+ +----+ 77 Subclavian Artery (cm/s) 48 +-----+ +----+ 34 Vertebral Artery (cm/s) 22 +-----+ +----+ 1.0 ICA/CCA Ratio 0.9 +-----+ +----+ Elkin Leon MD. Electronically signed on 12/17/2024 10:28:36 AM This study was performed and interpreted by a service accredited by the Intersocietal Accreditation Commission (IAC/Vascular), [email or web address]/vascular Report generated by [employer]. Final Procedure Note Elkin Leon MD - 12/17/2024 VASCULAR ULTRASOUND REPORT HARRY LUNA : 1955 Study Date: 12/17/2024 7:08:08 AM Age: 69 years Tech: BSG Gender: M Referring MD: HERNESTO JOLLY Site: [facility] Study performed: Carotid Indication for Study: CAD Study Quality: Good TECHNIQUE: The extracranial carotid arteries, vertebral arteries and subclavianarteries were examined per exam protocol with duplex ultrasound,color-flow and spectral Doppler. Flow velocities including peak systolic(PSV), end diastolic (EDV), and velocity ratios if applicable weredocumented at sites per exam protocol. IMPRESSION: 1. Based on the ICA velocities, ICA/CCA ratio, and 2D images there isplaque causing <50% stenosis in the right internal carotid artery andthere is plaque causing <50% stenosis in the left internal carotidartery. 2. Normal antegrade flow in the right vertebral artery and normalantegrade flow in the left vertebral artery. 3. Multiphasic flow in the right subclavian artery consistent with noflow limiting stenosis and multiphasic flow in the left subclavian arteryconsistent with no flow limiting stenosis. COMPARISON: No prior study available for comparison. RIGHT FINDINGS: Antegrade flow in the right vertebral artery. Multiphasic flow in theright subclavian artery consistent with no flow limiting stenosis. LEFT FINDINGS: Antegrade flow in the left vertebral artery. Multiphasic flow in the leftsubclavian artery consistent with no flow limiting stenosis. MEASUREMENTS: +--------+--------+------+--------+--------+ RIGHT RIGHT LEFT LEFT +--------+--------+------+--------+--------+ PSV cm/s EDV cm/s Vessel PSV cm/s EDV cm/s +--------+--------+------+--------+--------+ 47 6 P. CCA 57 11 +--------+--------+------+--------+--------+ 44 9 D. CCA 51 10 +--------+--------+------+--------+--------+ 46 13 P. ICA 40 13 +--------+--------+------+--------+--------+ 46 15 M. ICA 45 14 +--------+--------+------+--------+--------+ 46 13 D. ICA 49 16 +--------+--------+------+--------+--------+ 56 2 ECA 84 12 +--------+--------+------+--------+--------+ +-----+ +----+ RIGHT LEFT +-----+ +----+ 77 Subclavian Artery (cm/s) 48 +-----+ +----+ 34 Vertebral Artery (cm/s) 22 +-----+ +----+ 1.0 ICA/CCA Ratio 0.9 +-----+ +----+ Elkin Leon MD. Electronically signed on 12/17/2024 10:28:36 AM This study was performed and interpreted by a service accredited by theIntersocietal Accreditation Commission (IAC/Vascular),[email or web address]/vascular Report generated by [employer]. Final Hernesto Jolly [facility] Final Result * (ABNORMAL) CBC W PLT NO DIFF (12/15/2024 8:57 AM CDT) WHITE BLOOD COUNT 4.1(L) 4.5 - 11.0 thou/cu mm 12/15/2024 9:00 AM CDT [facility] RED BLOOD COUNT 4.84 4.30 - 5.90 mil/cu mm 12/15/2024 9:00 AM CDT [facility] HEMOGLOBIN 13.7 13.5 - 17.5 g/dL 12/15/2024 9:00 AM CDT [facility] HEMATOCRIT 42.4 37.0 - 53.0 % 12/15/2024 9:00 AM CDT [facility] MCV 88 80 - 100 fL 12/15/2024 9:00 AM CDT [facility] MCH 28.3 26.0 - 34.0 pg 12/15/2024 9:00 AM CDT [facility] MCHC 32.3 32.0 - 36.0 g/dL 12/15/2024 9:00 AM CDT [facility] RDW 12.8 11.5 - 15.5 % 12/15/2024 9:00 AM CDT [facility] PLATELET COUNT 116(L) 140 - 440 thou/cu mm 12/15/2024 9:00 AM CDT [facility] MPV 9.8 6.5 - 11.0 fL 12/15/2024 9:00 AM CDT [facility] NRBC 0.0 % 12/15/2024 9:00 AM CDT [facility] ABS NRBC 0.0 thou /cu mm 12/15/2024 9:00 AM CDT [facility] Blood BLOOD SPECIMEN / Unknown Butterfly / Unknown 12/15/2024 8:57 AM CDT 12/15/2024 8:57 AM CDT [facility] Final Result [facility] [address] [place] [address] * (ABNORMAL) PRO-BNP (12/15/2024 8:57 AM CDT) Only the most recent of2 resultswithin the time period is included. PRO-BNP 1,364(H) <125 pg/mL 12/15/2024 9:27 AM CDT [facility] Blood BLOOD SPECIMEN / Unknown Butterfly / Unknown 12/15/2024 8:57 AM CDT 12/15/2024 8:57 AM CDT [facility] - 12/15/2024 9:27 AM CDT The following cut-points have been suggested for [...] of 72% for acute congestive heart failure. [facility] SEND OUTS Final Result [facility] [address] [place] [address] * (ABNORMAL) COMP METABOLIC PANEL (12/15/2024 8:57 AM CDT) Only the most recent of2 resultswithin the time period is included. SODIUM 139 136 - 145 mmol/L 12/15/2024 9:26 AM CDT [facility] POTASSIUM 4.0 3.5 - 5.1 mmol/L 12/15/2024 9:26 AM CDT [facility] CHLORIDE 105 98 - 107 mmol/L 12/15[facility]24 [facility],T[facility] 22 22 - 29 mmol/L 12/15/2024 9:26 AM [facility] ANION GAP 12 5 - 18 12/15/2024 9:26 AM [facility] GLUCOSE 281(H) 70 - 99 mg/dL 12/15/2024 9:26 AM [facility] CALCIUM 8.9 8.8 - 10.4 mg/dL 12/15/2024 9:26 AM [facility] Comment: Reference ranges for this test were updated on 06/16/2024 to reflect our healthy population more accurately. Reference range changes are not retroactively applied to results, but previous results using the same methodology can be interpreted in the context of the new reference range. BUN 28(H) 8 - 23 mg/dL 12/15/2024 9:26 AM [facility] CREATININE 1.27(H) 0.70 - 1.20 mg/dL 12/15/2024 9:26 AM [facility] BUN/CREAT RATIO 22(H) 10 - 20 9:26 AM [facility] eGFR 62(L) >90 mL/min/1. 73m2 12/15/2024 9:26 AM [facility] Comment:As of 2021, eG FR is calculated by the CKD-EPI creatinine equation without race adjustment. eGFR can be influenced by muscle mass, exercise, and diet. The reported eGFR is an estimation only and is only applicable if the renal function is stable. ALBUMIN 4.2 4.0 - 4.9 g/dL 12/15/2024 9:26 AM [facility] PROTEIN,TOTAL 7.2 6.0 - 8.0 g/dL 12/15/2024 9:26 AM [facility] BILIRUBIN,TOTAL 1.0 0.0 - 1.2 mg/dL 12/15/2024 9:26 AM [facility] ALK PHOSPHATASE 41 40 - 129 IU/L 12/15/2024 9:26 AM [facility] ALT (SGPT) 19 10 - 50 IU/L 12/15/2024 9:26 AM [facility] AST (SGOT) 21 10 - 50 IU/L 12/15/2024 9:26 AM CDT [facility] Blood BLOOD SPECIMEN / Unknown Butterfly / Unknown 12/15/2024 8:57 AM CDT 12/15/2024 8:57 AM CDT Hernesto Jolly [facility] CHEMISTRY Final Result Performing Organization Address City/[facility]/ZIP Co de Phone Number [facility] [address] [place] [address] * SCAN CORRESP-EKG RESULTS (12/10/2024 1:56 PM CDT) Narrative 12/10/2024 1:56 PM CDT Ordered by an unspecified provider. Other Clinical Staff OTHER Final Resul t * (ABNORMAL) GLUCOSE METER (12/10/2024 11:11 AM CDT) Only the most recent of4 resultswithin the time period is included. GLUCOSE METER 203(H) 65 - 100 mg/dL 12/10/2024 11:16 AM CDT [facility] Blood BLOOD SPECIMEN / Unknown 12/10/2024 11:11 AM CDT 12/10/2024 11:16 AM CDT Bharti Palma MD CHEMISTRY Final R esult [facility] [address] [place] [id number], [place] * SCAN-CARDIAC STRIP (12/10/2024 10:09 AM CDT) Scanner OTHER Final Result * SODIUM (12/10/2024 6:45 AM CDT) SODIUM 138 136 - 145 mmol/L 12/10/2024 7:27 AM CDT [facility] Blood BLOOD SPECIMEN / Unknown Butterfly / Unknown 12/10/2024 6:45 AM CDT 12/10/2024 6:57 AM CDT Bharti Palma MD CHEMISTRY Final R esult [facility] [address] [place] [id number], [place] * POTASSIUM (12/10/2024 6:45 AM CDT) POTASSIUM 4.5 3.5 - 5.1 mmol/L 12/10/2024 7:27 AM CDT [facility] Blood BLOOD SPECIMEN / Unknown Butterfly / Unknown 12/10/2024 6:45 AM CDT 12/10/2024 6:57 AM CDT Bharti Palma MD CHEMISTRY Final R esult Performing Organization Address City/[facility]/ZIP Co de Phone Number [facility] [address] [address], [place] * (ABNORMAL) CREATININE (12/10/2024 6:45 AM CDT) eGFR 79(L) >90 mL/min/1.7 3m2 12/10/2024 7:27 AM CDT [facility] Comment:As of 2021, eG FR is calculated by the CKD-EPI creatinine equation without race adjustment. eGFR can be influenced by muscle mass, exercise, and diet. The reported eGFR is an estimation only and is only applicable if the renal function is stable. CREATININE 1.03 0.70 - 1.20 mg/dL 12/10/2024 7:27 AM CDT [facility] Blood BLOOD SPECIMEN / Unknown Butterfly / Unknown 12/10/2024 6:45 AM CDT 12/10/2024 6:57 AM CDT Bharti Palma MD CHEMISTRY Final R esult Performing Organization Address City/[facility]/ZIP Co de Phone Number [facility] [address] [address], [place] * SCAN-CARDIAC STRIP (12/10/2024 5:18 AM CDT) us Scanner OTHER Final Result * SCAN-CARDIAC STRIP (12/09/2024 10:15 PM CDT) us Scanner OTHER Final Result * (ABNORMAL) TROPONIN T (HS) ONE TIME (12/09/2024 4:05 PM CDT) TROPONIN T HS 20(H) 6-15 ng/L ng/L 12/09/2024 4:36 PM CDT [facility] Blood BLOOD SPECIMEN / Unknown Non-Lab Venipuncture / Unknown 12/09/2024 4:05 PM CDT 12/09/2024 4:11 PM CDT Josef Ramirez MD CHEMISTRY Final R esult Performing Organization Address City/[facility]/ZIP Co de Phone Number [facility] [address] [place] [address], [place] * ALT (SGPT) (12/09/2024 4:05 PM CDT) ALT (SGPT) 22 10 - 50 IU/L 12/09/2024 4:36 PM CDT [facility] Blood BLOOD SPECIMEN / Unknown Non-Lab Venipuncture / Unknown 12/09/2024 4:05 PM CDT 12/09/2024 4:11 PM CDT Josef Ramirez MD CHEMISTRY Final R esult [facility] [address] [place] [address], [place] * AST (SGOT) (12/09/2024 4:05 PM CDT) AST (SGOT) 21 10 - 50 IU/L 12/09/2024 4:36 PM CDT [facility] Blood BLOOD SPECIMEN / Unknown Non-Lab Venipuncture / Unknown 12/09/2024 4:05 PM CDT 12/09/2024 4:11 PM CDT us Josef Ramirez MD CHEMISTRY Final R esult [facility] [address] [place] [phone], [place] * EXTRA TUBE GOLD/SST (12/09/2024 4:02 PM CDT) Blood BLOOD SPECIMEN / Unknown Non-Lab Venipuncture / Unknown 12/09/2024 4:02 PM CDT 12/09/2024 4:12 PM CDT us Almita Rodriguez MD LABORATORY Final Result Performing Organization Address City/[facility]/ZIP Co de Phone Number [facility] [address] [place] [address], [place] * ELECTRONIC ANALYSIS ILR SYSTEM (12/09/2024 1:35 PM CDT) Narrative Dank Cotton MD - 12/09/2024 1:35 PM CDT Dank Cotton MD 12/10/2024 9:14 AM ILR EVALUATION REPORT 12/09/24 Summary: Normal ILR function. No auto arrhythmias detected. 4% PVC burden. 15 symptom activation episodes, viewable EGMs show frequent PACs and PVCs, see below. Recent symptom activations scanned into report. Indication for ILR: NSVT and PVC burden Primary MD: Lakesha Khan MD Requesting Provider: Dr Estrada Implanting Provider: Kelly Hidalgo N.P. 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 Viewable EGMs show sinus rhythm at ~90-100 bpm with frequent PACs and PVCs - bigeminal at times. Brief runs of PACs noted. Intermittent brief compensatory pause post ectopic beat noted as has been seen before. Associated symptoms: not reported Automatic Activated Events: none Associated symptoms: n/a PVC burden: 3.3% Battery Status: OK Underlying Rhythm: Sinus rhythm at ~75 bpm with 1:1 conduction SENSING PARAMETERS: Sensitivity: 0.035 mV Blank after Sense: 150 ms T-Wave Blanking Interval: 150 ms EPISODE DETECTION PARAMETERS: Detection Rate (bpm) Duration Tachy On >176 >=16 beats Rolly On <30 >=4 beats Pause On >3 seconds AF On > 10 minutes DAILY STORAGE: Patient activated: 2 episodes (14 minutes pre-activation, 1 minute post-activation). Automatically detected episodes: EGMS: First two detected episodes and longest episode of every episode type. Trend markers and plot graphs: 7 additional episodes per episode type. Changes made: none Follow up: 01/28/2025 ILR remote as scheduled. Routine follow up: Q 90 days Shalonda Jon RN Nurse Clinician II [facility] Pacemaker/ICD Clinic [phone] us Dank Cotton MD CARDIAC SERVICES ORD F inal Result * XR CHEST 1 VIEW PORTABLE (12/09/2024 1:24 PM CDT) Anatomical Region Laterality Modality HEART, THORAX, CHEST Digital Rad iography 12/09/2024 1:31 PM CDT Impressions 12/09/2024 1:31 PM CDT 1. Enlarged heart. 2. Loop recorder overlying the precordium. 3. Lung volumes are low. However, the lungs appear clear. No acute focal findings. 4. No pleural effusion or pneumothorax. Dictated by Domenic Hairston MD @ 12/09/2024 1:31:49 PM (Electronically Signed) Narrative 12/09/2024 1:31 PM CDT For Patients: As a result of the Century Cures Act, medical imaging exams and procedure reports are released immediately into your electronic medical record. You may view this report before your referring provider. If you have questions, please contact your health care provider. INDICATION: Chest pain and dyspnea COMPARISON: September 21, 2024 TECHNIQUE: A single view study was obtained as a portable CXR, December 09, 2024 FINDINGS: As discussed below Procedure Note Domenic Hairston MD - 12/09/2024 For Patients: As a result of the Century Cures Act, medical imagingexams and procedure reports are released immediately into your electronicmedical record. You may view this report before your referring provider.If you have questions, please contact your health care provider. INDICATION: Chest pain and dyspnea COMPARISON: September 21, 2024 TECHNIQUE: A single view study was obtained as a portable CXR, December 09, 2024 FINDINGS: As discussed below IMPRESSION: 1. Enlarged heart. 2. Loop recorder overlying the precordium. 3. Lung volumes are low. However, the lungs appear clear. No acute focalfindings. 4. No pleural effusion or pneumothorax. Dictated by Domenic Hairston MD @ 12/09/2024 1:31:49 PM (Electronically Signed) Josef Ramirez MD GENERAL IMAGING Final R esult * (ABNORMAL) TROPONIN T (HS) ACUTE W/2HR REFLEX (12/09/2024 1:08 PM CDT) TROPONIN T HS 17(H) 6-15 ng/L ng/L 12/09/2024 1:56 PM CDT [facility] Blood BLOOD SPECIMEN / Unknown Non-Lab Venipuncture / Unknown 12/09/2024 1:08 PM CDT 12/09/2024 1:16 PM CDT Narrative [facility] - 12/09/2024 1:56 PM CDT hs-cTnT (Elecsys Troponin T Gen 5) concentration [...] risk in emergency department patient population. us Josef Ramirez MD CHEMISTRY Final R esult [facility] [address] [place] [address], * (ABNORMAL) CBC WITH AUTO DIFFERENTIAL (12/09/2024 1:08 PM CDT) [facility] WHITE BLOOD COUNT 6.5 4.5 - 11.0 thou/cu mm 12/09/2024 1:42 PM CDT [facility] RED BLOOD COUNT 4.54 4.30 - 5.90 mil/cu mm 12/09/2024 1:42 PM CDT [facility] HEMOGLOBIN 12.8(L) 13.5 - 17.5 g/dL 12/09/2024 1:42 PM CDT [facility] HEMATOCRIT 39.6 37.0 - 53.0 % 12/09/2024 1:42 PM CDT [facility] MCV 87 80 - 100 fL 12/09/2024 1:42 PM CDT [facility] MCH 28.2 26.0 - 34.0 pg 12/09/2024 1:42 PM CDT [facility] MCHC 32.3 32.0 - 36.0 g/dL 12/09/2024 1:42 PM CDT [facility] RDW 13.2 11.5 - 15.5 % 12/09/2024 1:42 PM CDT [facility] PLATELET COUNT 134(L) 140 - 440 thou/cu mm 12/09/2024 1:42 PM CDT [facility] MPV 10.6 6.5 - 11.0 fL 12/09/2024 1:42 PM CDT [facility] NRBC 0.0 % 12/09/2024 1:42 PM CDT [facility] ABS NRBC 0.0 thou /cu mm 12/09/2024 1:42 PM CDT [facility] % NEUT 68.0 % 12/09/2024 1:42 PM CDT [facility] % LYMPH 22.4 % 12/09/2024 1:42 PM CDT [facility] % MONO 6.3 % 12/09/2024 1:42 PM CDT [facility] % EOS 2.6 % 12/09/2024 1:42 PM CDT [facility] % BASO 0.5 % 12/09/2024 1:42 PM CDT [facility] % IMMATURE GRAN (METAS,MYELOS,IA OS) 0.2 % 12/09/2024 1:42 PM CDT [facility] ABSOLUTE NEUTROPHILS 4.4 1.7 - 7.0 thou/cu mm 12/09/2024 1:42 PM CDT [facility] ABSOLUTE LYMPHOCYTES 1.5 0.9 - 2.9 thou/cu mm 12/09/2024 1:42 PM CDT [facility] ABSOLUTE MONOCYTES 0.4 <0.9 thou/cu mm 12/09/2024 1:42 PM CDT [facility] ABSOLUTE EOSINOPHILS 0.2 <0.5 thou/cu mm 12/09/2024 1:42 PM CDT [facility] ABSOLUTE BASOPHILS 0.0 <0.3 thou/cu mm 12/09/2024 1:42 PM CDT [facility] ABSOLUTE IMMATURE GRANULOCYTES(MET ,MYELOS,PROS) 0.0 <0.3 thou/cu mm 12/09/2024 1:42 PM CDT [facility] Blood BLOOD SPECIMEN / Unknown Non-Lab Venipuncture / Unknown 12/09/2024 1:08 PM CDT 12/09/2024 1:16 PM CDT Josef Ramirez MD HEMATOLOGY Final R esult Performing Organization Address City/[facility]/ZIP Co de Phone Number [facility] [address] [place] [address], [place] * EKG 12 LEAD (12/09/2024 12:58 PM CDT) Only the most recent of2 resultswithin the time period is included. Interpretation Sinus rhythm with Premature atrial complexes with Aberrant conduction Left axis deviation Right bundle branch block Inferior infarct , age undetermined Abnormal ECG BEYOND NOW Ventricular Rate 90 BPM BEYOND NOW Atrial Rate 90 BPM BEYOND NOW P-R Interval 208 ms BEYOND NOW QRS Duration 150 ms BEYOND NOW QT 432 ms BEYOND NOW QTc 528 ms BEYOND NOW P [place] 35 degrees BEYOND NOW R [place] -59 degrees BEYOND NOW T [place] 67 degrees BEYOND NOW 12/09/2024 12:5 8 PM CDT 12/09/2024 4:59 PM CDT Josef Ramirez MD EKG ORD Edited Result - Final Performing Organization Address City/[facility]/ZIP Co de Phone Number BEYOND NOW [place], [place] * ECHO TTE LIMITED W CONTRAST W COLOR W DOPPLER (11/27/2024 9:55 AM CDT) AORTIC VALVE MEAN PG 7 mmHg EJECTION FRACTION 31 % LVEDD 6.3 cm MITRAL VALVE MR ERO 20 mm2 EJECTION FRACTION 30 - 35% Anatomical Region Laterality Modality Ultrasound, Comp uted Tomography 11/27/2024 9:19 AM CDT Narrative 11/27/2024 5:32 PM CDT ECHOCARDIOGRAM HARRY LUNA : 1955 69 years Study Date: 11/27/2024 9:19:09 AM Gender: M BP: 117/87 mmHg Height: 183.00 cm BSA: 2.30 m Weight: 109.00 kg Tech: [facility] Referring MD: LAURA NASH Site: [facility] Reading Location: [facility] Patient Location: Outpatient. Procedure: Limited Echo w/ Contrast, Color Doppler and Limited Spectral Doppler. Indication for study: Coronary Atherosclerosis, HFrEF, NSTEMI Cardiac Rhythm: Atrial fibrillation.Study quality: Good. Final Impressions: Limited Echocardiogram performed 1. Moderately increased LV size, moderately reduced global systolic function with an estimated EF of 30 - 35%. 2. Entire inferior wall and mid posterior segment are akinetic. There is moderate global left ventricular hypokinesis. 3. Severely enlarged left atrium. 4. The aortic valve is trileaflet and sclerotic, no stenosis and no regurgitation. 5. The mitral valve is sclerotic, mild to moderate mitral regurgitation. 6. Echo contrast was administered to enhance visualization of all left ventricular segments. Comparison Compared to prior exam images and report of 10/16/24: - The left ventricular function has increased. Chamber Sizes and Function Moderately increased left ventricular size, moderately reduced global systolic function with an estimated EF of 30 - 35%. There is moderate global left ventricular hypokinesis. Left atrial size is severely enlarged. Right ventricular cavity size is normal, global systolic RV function is normal. The sinus of Valsalva is normal sized. The ascending aorta is normal sized. The entire inferior wall and mid posterior segment are akinetic. Valves, RV Pressures and Diastolic Function The aortic valve is trileaflet and sclerotic, no stenosis and no regurgitation. The mitral valve is sclerotic, mild to moderate mitral regurgitation. Mild mitral annular calcification is present. Indeterminate pattern of LV diastolic filling. The tricuspid valve is normal in structure, trace tricuspid regurgitation. Unable to assess right ventricular systolic pressure. MEASUREMENTS AND CALCULATIONS 2-D Measurements and LV Function: LVID (d) 6.3 cm LV FS% (2D) 19 % LVID (s) 5.1 cm LVOT diameter 2.6 cm IVS (d) 1.2 cm HR 95 bpm LVPW (d) 1.3 cm Ao Sinus 3.6 cm Ao Sinus ULN 4.2 cm * Asc Ao 3.7 cm Asc Ao ULN 4.2 cm * LA 5.3 cm * Input BSA outside of range, reported values correspond to BSA = 2.1 Diastology: Mitral Tissue Doppler E Peak 1.53 m/s e', Septum 0.18 m/s DT 111 msec e', Lateral 0.18 m/s E/e' Average 8.55 Aortic Valve: Vmax 1.7 m/s GOVIND (V) 2.54 cm VTI 0.32 m GOVIND (I) 2.38 cm LVOT V max 0.8 m/s Max PG 12 mmHg LVOT VTI 0.14 m Mean PG 7 mmHg SV 76 ml Dim Index 0.45 SV index 33 ml/m CO 7.2 l/min CI 3.1 l/min/m Mitral Valve: MVA 6.8 cm MR ERO 0.20 cm MV P 1/2 32 msec MR Vol. 35 ml MR TVI 1.75 m Tricuspid Valve and estimated PA pressures: TAPSE 2.9 cm Contrast documentation: 1.5 ml diluted Definity, lot #[id number] was administered peripherally to enhance visualization of all left ventricular segments. . This study was interpreted by an [facility] accredited facility. Final Procedure Note Freedom Santos MD - 11/27/2024 ECHOCARDIOGRAM HARRY LUNA : 1955 69 years Study Date: 11/27/2024 9:19:09 AM Gender: M BP: 117/87 mmHg Height: 183.00 cm BSA: 2.30 m Weight: 109.00 kg Tech: [facility] Referring MD: LAURA NASH Site: [facility] Reading Location: [facility] Patient Location: Outpatient. Procedure: Limited Echo w/ Contrast, Color Doppler and Limited SpectralDoppler. Indication for study: Coronary Atherosclerosis, HFrEF, NSTEMI Cardiac Rhythm: Atrial fibrillation.Study quality: Good. Final Impressions: Limited Echocardiogram performed 1. Moderately increased LV size, moderately reduced global systolicfunction with an estimated EF of 30 - 35%. 2. Entire inferior wall and mid posterior segment are akinetic. There ismoderate global left ventricular hypokinesis. 3. Severely enlarged left atrium. 4. The aortic valve is trileaflet and sclerotic, no stenosis and noregurgitation. 5. The mitral valve is sclerotic, mild to moderate mitralregurgitation. 6. Echo contrast was administered to enhance visualization of all leftventricular segments. Comparison Compared to prior exam images and report of 10/16/24: - The left ventricular function has increased. Chamber Sizes and Function Moderately increased left ventricular size, moderately reduced globalsystolic function with an estimated EF of 30 - 35%. There is moderateglobal left ventricular hypokinesis. Left atrial size is severelyenlarged. Right ventricular cavity size is normal, global systolic RVfunction is normal. The sinus of Valsalva is normal sized. The ascendingaorta is normal sized. The entire inferior wall and mid posterior segmentare akinetic. Valves, RV Pressures and Diastolic Function The aortic valve is trileaflet and sclerotic, no stenosis and noregurgitation. The mitral valve is sclerotic, mild to moderate mitralregurgitation. Mild mitral annular calcification is present. Indeterminatepattern of LV diastolic filling. The tricuspid valve is normal instructure, trace tricuspid regurgitation. Unable to assess rightventricular systolic pressure. MEASUREMENTS AND CALCULATIONS 2-D Measurements and LV Function: LVID (d) 6.3 cm LV FS% (2D)19 % LVID (s) 5.1 cm LVOT diameter2.6 cm IVS (d) 1.2 cm HR95 bpm LVPW (d) 1.3 cm Ao Sinus 3.6 cm Ao Sinus ULN 4.2 cm * Asc Ao 3.7 cm Asc Ao ULN 4.2 cm * LA 5.3 cm * Input BSA outside of range, reported values correspond to BSA = 2.1 Diastology: Mitral Tissue Doppler E Peak 1.53 m/s e', Septum 0.18 m/s DT 111 msec e', Lateral 0.18 m/s E/e' Average 8.55 Aortic Valve: Vmax 1.7 m/s GOVIND (V) 2.54 cm VTI 0.32 m GOVIND (I) 2.38 cm LVOT V max 0.8 m/s Max PG 12 mmHg LVOT VTI 0.14 m Mean PG 7 mmHg SV 76 ml Dim Index 0.45 SV index 33 ml/m CO 7.2 l/min CI 3.1 l/min/m Mitral Valve: MVA 6.8 cm MR ERO 0.20 cm MV P 1/2 32 msec MR Vol. 35 ml MR TVI 1.75 m Tricuspid Valve and estimated PA pressures: TAPSE 2.9 cm Contrast documentation: 1.5 ml diluted Definity, lot #[id number] wasadministered peripherally to enhance visualization of all left ventricularsegments. . This study was interpreted by an [facility] accredited facility. Final Laura Nash MD ECHO ORD Final Result * BEDSIDE US STUDY ARCHIVE (11/25/2024 11:09 AM CDT) Narrative Juliet Thompson J - 11/25/2024 11:09 AM CDT The patient was seen for ultrasound guided injection by Dr. Sancho Madrid. Ultrasound was not used for diagnostic purposes, but to guide the needle placement and document the position of the injection. See patient's EPIC encounter for the detail of the procedure; see ESTRELLITA for saved images of the injection. Sancho Madrid MD PROCEDURE ORD Final Resu lt * (ABNORMAL) LIPID PANEL (08/02/2024 8:07 PM [employer]) CHOLESTEROL,TOTAL 95(L) 100 - 199 mg/dL 08/03/2024 3:14 PM [employer] [email or web address] Comment: Cholesterol, Total Reference Ranges Desirable <200 mg/dL Borderline 200-239 mg/dL High >=240 mg/dL TRIGLYCERIDES 95 <150 mg/dL 08/03/2024 3:14 PM [employer] [facility] HDL CHOLESTEROL 44 >40 mg/dL 3:14 PM [employer] [facility] NON-HDL CHOLESTEROL 51 <145 mg/dl 08/03/2024 3:14 PM [employer] [facility] CHOL/HDL RATIO 2.16 <4.50 08/03/2024 3:14 PM [employer] [facility] LDL CHOLESTEROL 32 <=130 mg/dL 08/03/2024 3:14 PM [employer] [facility] VLDL CHOLESTEROL 19 <=30 mg/dL 08/03/20 3:14 PM [employer] [facility] Blood BLOOD SPECIMEN / Unknown Venipuncture / Unknown 08/02/2024 8:07 PM [employer] 08/02/2024 8:13 PM [employer] us Allie Soriano NP CHEMISTRY Fin al Result [facility] [address] [place] [address], [place] * ANTI HCV (04/16/2017 9:14 AM CDT) HEPATITIS C ANTIBODY Non-Reacti ve Non-Reacti ve 04/16/2017 3:42 PM CDT [facility] Blood BLOOD SPECIMEN / Unknown Venipuncture / Unknown 04/16/2017 9:14 AM CDT 04/16/2017 9:17 AM CDT Narrative [facility] - 04/16/2017 3:42 PM CDT Antibodies to HCV not detected; does not exclude the possibility of exposure to HCV. us Jakub Soliz MD SEND OUTS Final Result [facility] 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
--- OUTSIDE RECORDS SUMMARY | 2025-02-16 19:21 | XMS_ITS | Clinical Summary ---
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 Procedures Code Procedure Name Date Entry Date CPT-69796 Nerve Conduction 13 or more studies 05/09 CPT-48370 EMG with NCS (5+ muscles) - 2 limbs 05/09 Vital Signs No information available. Immunizations No information available. Advance Directives No information available.
--- NOTE | 2025-02-16 19:30 | ED.GENADULT ---
HPI - General Adult General Date Seen: 02/16/25 Chief complaint: Chest Pain Stated complaint: heart attack, pain in chest Time Seen by Provider: 02/16/25 19:30 History of Present Illness HPI narrative: 69-year-old gentleman with a past medical history of coronary disease, type 2 diabetes, carpal tunnel syndrome, osteoarthritis. Per medical record he was seen here in the ER in July [address] elevation NV. he was transferred [facility]. Per that DC summary dayed 08/15/24 Dale Luna is a(n) 68 y.o. with a history of CAD, HFrEF, HTN, HLD, type II diabetes mellitus who was admitted on 08/02/2024 with [id number] myocardial infarction. ? Patient awoke from sleep at 0200 on day of admission with left central chest pain. Nitroglycerin diminished but did not resolve that pain. He presented to an outside hospital where he was found to have troponin elevation without new ischemic appearing changes on ECG. He was started on therapeutic IV heparin for NSTEMI and transferred to [facility] for ongoing care. Patient was given low molecular weight heparin and transfer arranged to [facility]. ? On arrival to [facility] he was chest pain free. He reported adherenc to outpatient medications. He mentioned he had shoveled his driveway several days prior without any chest pain or undue shortness of breath. His weight has been stable, no new or worsening edema ? Continues on ASA, plavix; he was transitioned from LMWH at outside facility to heparin infusion here, continued on statin. Coronary angiogram revealed 99% ISR in previously placed stents in RCA- treated with angioplasty. RHC showed elevated filling pressures (PW=22; PA=47/30, mean 36; RV=41/13; RA=14; CO = 5.0 L/min). TTE 08/04 unfortunately showed LVEF 10-20% with mild to moderate LV dilation, normal RV size with mildly reduced function, moderate MR. ? Following initial angiogram 08/03 he developed recurrent bouts of dyspnea and recurrent bouts of low central chest pain that was responsive to NTG. 08/05 trops trended up from 145 to peak of 172 before down trending. He ultimately had repeat coronary angiogram 08/06: found to have sinigifncant recoil in mid-RCA stent from 3 days prior, iFR was negative at 0.93; 70% LAD stenosis at takeoff of moderate diagonal that also has 79% stenosis. Interventionalist recommended CV surgery consultation to consider revascularization. Cardiac MRI showed mixed ischemic and non-ischemic CM, dilated LV with LVEF 20%, severe RV dysfunction with RVEF 24%. There was transmural basilar, inferoseptal and inferior infarction- some RCA viability, OM non-viable, LAD and diagonal with akinesis but completely viable. Ultimately decision was made to proceed with staged PCI to left anterior descending ? Percutaneous coronary intervention performed 08/13/2024 showing 80% stenosis in the Proximal left anterior descending, 80% stenosis in the Mid left anterior descending, 80% Diffusely diseased stenosis in the 1st Diagonal, 50% stenosis in the Mid RCA. Drug eluting stents placed in prox left anterior descending, Mid left anterior descending, 1st diagonal. Dual antiplatelet therapy recommend for at least 12 months ? Patient followed by EP and underwent placement of a loop recorder while inpatient due to pvc's and non-sustained ventricular tachycardia ? Patient has had multiple spells this admission that have intermittently occurred at home as well. In the past has been felt ot be due to PTSD or panic attacks related to prior complex critical care stay. Per they happen 1-2 times per week at home. Spells here have typically lasted 1-2 minutes, seem to involve shouting and sometimes limb shaking (see RN note evening 08/04); eyes are open ot spells but he is generally not responsive to prompts. WHen the spell passes he has no memory of the events, but also has not exhibited any signs of being post-ictal. Discussed with ELISEO- spells happening frequently enough here that it was felt to be reasonable to start EEG montirong to see if we can capture one and definitively rule seizure in or out. He did not have any recurrent spells over a couple of days of monitoiring, so EEG stopped. Or other past medical history includes chronic systolic CHF, ischemic cardiomyopathy, hypertension, hyperlipidemia, hearing loss. He has also had spells of syncope and was admitted at [place]. Sounds like he had some nonsustained V-tach. He has a surveillance system monitor that has not shown any recent events. Per history and physical from [place] 12/09/2024 after a syncopal event Current med list includes clopidogrel she grew, aspirin 81, nitro p.r.n., metoprolol XL 25 mg, furosemide 20 mg, he also impact low flows in, duloxetine, atorvastatin, metformin He has been doing well for the past several weeks. Beating in this morning about 10:00 a.m. he started to have chest pain. He was not doing any exertion when he started having a substernal chest squeezing. He took 1 sublingual nitro his pain went away for a few hours. Came back later in the day, early afternoon and he again took another 2 nitro with resolution of the pain. Pain came back a 3rd time this afternoon. He has taken more nitro, at least 2 more at home, without resolution of his pain. He is feeling some substernal tightness and squeezing in his chest and neck. No radiation through to the jaw or to the back. No palpitations. No nausea. He was little bit sweaty. No swelling in his legs. He does have from some chronic shortness of breath and some chronic trouble with balance, but no new or worsening shortness of breath or imbalance. He took his aspirin and Plavix this morning. Related Data Home Medications ?Medication ?Instructions ?Recorded ?Confirmed atorvastatin 40 mg tablet 40 mg PO HS 01/08/23 02/16/25 gabapentin 300 mg capsule 1,200 mg PO BID 01/08/23 02/16/25 insulin glargine 100 unit/mL (3 20 unit subcut HS 01/08/23 02/16/25 mL) subcutaneous pen (Lantus Solostar U-100 Insulin) insulin lispro 100 unit/mL 6 - 10 unit subcut TIDWM 01/08/23 02/16/25 subcutaneous pen metformin 500 mg tablet,extended 1,000 mg PO BIDWM 01/08/23 02/16/25 release 24 hr clopidogrel 75 mg tablet 75 mg PO DAILY 11/11/23 02/16/25 duloxetine 30 mg capsule,delayed 30 mg PO DAILY 04/20/24 02/16/25 release insulin lispro 100 unit/mL 1 sliding scale dose subcut 05/18/24 02/16/25 subcutaneous cartridge (Humalog USEASDIRECTD U-100 Insulin) acetaminophen 500 mg tablet 500 mg PO TID PRN 07/14/24 02/16/25 aspirin 81 mg tablet,delayed 81 mg PO DAILY 07/14/24 02/16/25 release (Adult Low Dose Aspirin) empagliflozin 10 mg tablet 10 mg PO DAILY 07/14/24 02/16/25 (Jardiance) multivitamin (Daily Multi-Vitamin 1 tab PO DAILY 07/14/24 02/16/25 tablet) nitroglycerin 0.4 mg sublingual 0.4 mg sublingual Q5-15M PRN 07/14/24 02/16/25 tablet furosemide 20 mg tablet (Lasix) 20 mg PO QAM 08/31/24 02/16/25 lorazepam 1 mg tablet 1 mg PO DAILY PRN 01/22/25 02/16/25 losartan 25 mg tablet 12.5 mg PO DAILY 01/22/25 02/16/25 Allergies Allergy/AdvReac Type Severity Reaction Status Date / Time propoxyphene (From Allergy Mild Verified 02/16/25 19:26 Darvocet-N) bupropion (From Wellbutrin) Allergy Verified 02/16/25 19:26 [facility] Medical History Non-ST elevated myocardial infarction ?I21.4 - Non-ST elevation (NSTEMI) myocardial infarction (ICD-10) Surgical History H/O heart artery stent ?Z95.5 - Presence of coronary angioplasty implant and graft (ICD-10) Amputated toe of left foot ?S98.132A - Complete traumatic amputation of one left lesser toe, initial encounter (ICD-10) Cervical vertebral fusion ?M43.22 - Fusion of spine, cervical region (ICD-10) S/P right rotator cuff repair ?Z98.890 - Other specified postprocedural states (ICD-10) History of cholecystectomy ?Z90.49 - Acquired absence of other specified parts of digestive tract (ICD-10) History of appendectomy ?Z90.49 - Acquired absence of other specified parts of digestive tract (ICD-10) Gastric bypass status for obesity ?Z98.84 - Bariatric surgery status (ICD-10) Social History Smoking Status: Never smoker Do you use any of these nicotine containing products: None Second hand tobacco smoke exposure: No How often do you have a drink containing alcohol: 2-3 times a week How many standard drinks containing alcohol do you have on a typical day: 1 or 2 How often do you have six or more drinks on one occasion: Never AUDIT-C Alcohol total score: 3 Non-prescribed substance use: denies use service: No Exam Narrative: Exam Narrative: Constitutional: Appears well-developed and well-nourished. Alert. Uncomfortable, but Conversant. Remembers me from a previous ER visit. HENT: Head: Atraumatic. Nose: Nose normal. Mouth/Throat: Oral mucosa is clear and moist. no trismus. Pharynx normal. Tonsils symmetric. No tonsillar enlargement, erythema, or exudate. Eyes: Conjunctivae normal. EOM normal. Pupils equal, round, and reactive to light. No scleral icterus. Neck: Normal range of motion. Neck supple. No tracheal deviation present. No JVD Cardiovascular: Normal rate, regular rhythm. No gallop. No friction rub. No murmur heard. Symmetric radial artery pulses Pulmonary/Chest: Effort normal. No stridor. No respiratory distress. No wheezes. No rales. No rhonchi . No tenderness. Abdominal: Soft. Bowel sounds normal. No distension. No mass. No tenderness. No rebound. No guarding. Musculoskeletal: RUE: Normal range of motion. No tenderness. No deformity LUE: Normal range of motion. No tenderness. No deformity RLE: Normal range of motion. No edema. No tenderness. No deformity LLE: Normal range of motion. No edema. No tenderness. No deformity Neurological: Alert and oriented to person, place, and time. Normal strength. CN II-VII intact. No sensory deficit. GCS eye subscore is 4. GCS verbal subscore is 5. GCS motor subscore is 6. Normal coordination Skin: Skin is warm and dry. No diaphoresis. No rash noted. No pallor. Normal capillary refill. Psychiatric: Normal mood. Normal affect. Const: Vital Signs, click to edit/add: Vital Signs - 24 hr 02/16/25 19:21 02/16/25 19:47 02/16/25 19:48 Temperature 98.4 F Pulse Rate 105 H 105 H Pulse Rate [Right Pulse Oximeter] 112 H Respiratory Rate 18 14 13 Blood Pressure 108/75 Blood Pressure [Ri ght Upper Arm] 108/69 Pulse Oximetry 96 97 96 Oxygen Delivery Me thod Room Air Room Air Oxygen Flow Rate 02/16/25 20:00 02/16/25 20:04 02/16/25 20:07 Temperature Pulse Rate Pulse Rate [Right Pulse Oximeter] Respiratory Rate 11 L 6 L 15 Blood Pressure 108/68 Blood Pressure [Ri ght Upper Arm] Pulse Oximetry Oxygen Delivery Me thod Oxygen Flow Rate 02/16/25 20:11 02/16/25 20:15 02/16/25 20:16 Temperature Pulse Rate 106 H 107 H Pulse Rate [Right Pulse Oximeter] Respiratory Rate 5 L 29 H 11 L Blood Pressure 101/68 94/67 Blood Pressure [Ri ght Upper Arm] Pulse Oximetry 92 92 Oxygen Delivery Me thod Oxygen Flow Rate 02/16/25 20:21 02/16/25 20:27 02/16/25 20:30 Temperature Pulse Rate 106 H 107 H 106 H Pulse Rate [Right Pulse Oximeter] Respiratory Rate 9 L 15 22 Blood Pressure 101/69 101/68 Blood Pressure [Ri ght Upper Arm] Pulse Oximetry 92 92 91 Oxygen Delivery Me thod Room Air Oxygen Flow Rate 02/16/25 20:32 02/16/25 20:37 02/16/25 20:42 Temperature Pulse Rate 107 H 111 H 107 H Pulse Rate [Right Pulse Oximeter] Respiratory Rate 5 L 12 9 L Blood Pressure 99/72 124/77 107/71 Blood Pressure [Ri ght Upper Arm] Pulse Oximetry 92 93 94 Oxygen Delivery Me thod Nasal Cannula Oxygen Flow Rate 2 02/16/25 20:43 02/16/25 20:45 02/16/25 20:46 Temperature Pulse Rate 106 H 106 H 106 H Pulse Rate [Right Pulse Oximeter] Respiratory Rate 23 12 16 Blood Pressure 91/67 Blood Pressure [Ri ght Upper Arm] Pulse Oximetry 92 94 94 Oxygen Delivery Me thod Oxygen Flow Rate 02/16/25 20:52 02/16/25 20:57 02/16/25 21:00 Temperature Pulse Rate 105 H 105 H 105 H Pulse Rate [Right Pulse Oximeter] Respiratory Rate 20 9 L 11 L Blood Pressure 112/70 103/65 Blood Pressure [Ri ght Upper Arm] Pulse Oximetry 94 92 94 Oxygen Delivery Me thod Nasal Cannula Oxygen Flow Rate 2 02/16/25 21:02 02/16/25 21:06 02/16/25 21:11 Temperature Pulse Rate 106 H 108 H 107 H Pulse Rate [Right Pulse Oximeter] Respiratory Rate 10 L 0 L 17 Blood Pressure 104/70 109/74 103/65 Blood Pressure [Ri ght Upper Arm] Pulse Oximetry 93 91 94 Oxygen Delivery Me thod Oxygen Flow Rate 02/16/25 21:15 02/16/25 21:16 02/16/25 21:21 Temperature Pulse Rate 104 H 105 H 107 H Pulse Rate [Right Pulse Oximeter] Respiratory Rate 20 14 20 Blood Pressure 104/67 99/71 Blood Pressure [Ri ght Upper Arm] Pulse Oximetry 95 95 96 Oxygen Delivery Me thod Oxygen Flow Rate 02/16/25 21:27 02/16/25 21:30 02/16/25 21:32 Temperature Pulse Rate 105 H 104 H 106 H Pulse Rate [Right Pulse Oximeter] Respiratory Rate 18 11 L 20 Blood Pressure 108/68 96/80 Blood Pressure [Ri ght Upper Arm] Pulse Oximetry 95 95 94 Oxygen Delivery Me thod Oxygen Flow Rate 02/16/25 21:36 02/16/25 21:42 Temperature Pulse Rate 105 H 104 H Pulse Rate [Right Pulse Oximeter] Respiratory Rate 0 L 7 L Blood Pressure 103/66 103/64 Blood Pressure [Ri ght Upper Arm] Pulse Oximetry 95 95 Oxygen Delivery Me thod Oxygen Flow Rate Course Course ED Course: Recheck-nurses working on ultrasound IV. Starting nitro drip. No change in his pain after 1 sublingual nitro. Reevaluation(s) Reevaluation #1: Recheck-pain still 8 or 9/10. Nurses are titrating up. Will also administer fentanyl. Patient reports that he has a very low tolerance for opiates. Therefore will start with a low dose of fentanyl, 25 mcg. Recheck-nitro drip titrating up. Pain is down to about a 3 or 4/10. Recheck-pain is now almost completely gone down to a 1/10. Still awaiting bed placement. Mental status normal. He is on 2 L nasal cannula. Does not need CPAP or BiPAP this point. Breathing easily. Watching TV. Reevaluation #2: Recheck-pain up slightly up to a 3/10. Has been assigned a bed at [place] and EMS is in route for transport. Blood pressure remains in the low normal region. He is on 45 mcg of nitro drip. Will add another dose of fentanyl 25 mcg. He tolerated well after the 1st dose. Vital Signs Vital signs: Initial Vital Signs Temperature 98.4 F 02/16/25 19:21 Temperature Source Temporal Artery Scan 02/16/25 19:21 Pulse Rate 112 H 02/16/25 19:21 Pulse Rhythm Regular 02/16/25 19:21 Pulse Strength 3+ Normal 02/16/25 19:21 Respiratory Rate 18 02/16/25 19:21 Blood Pressure 108/69 02/16/25 19:21 Blood Pressure Mean 82 02/16/25 19:21 Blood Pressure Position Sitting 02/16/25 19:21 Pulse Oximetry 96 02/16/25 19:21 Oxygen Delivery Method Room Air 02/16/25 19:21 Vital Signs Temperature 98.4 F 02/16/25 19:21 Pulse Rate 112 H 02/16/25 19:21 Respiratory Rate 18 02/16/25 19:21 Blood Pressure 108/69 02/16/25 19:21 Pulse Oximetry 96 02/16/25 19:21 Oxygen Delivery Method Room Air 02/16/25 19:21 Temperature 98.4 F 02/16/25 19:21 Pulse Rate 104 H 02/16/25 21:42 Respiratory Rate 7 L 02/16/25 21:42 Blood Pressure 103/64 02/16/25 21:42 Pulse Oximetry 95 02/16/25 21:42 Oxygen Delivery Method Nasal Cannula 02/16/25 20:57 Oxygen Flow Rate 2 02/16/25 20:57 Medications Administered Medications: Generic Name Dose Route Start Last Admin Trade Name Freq PRN Reason Stop Dose Admin Nitroglycerin/Dextrose 25,000 mcg in 250 mls @ 3 mls/hr 02/16/25 19:51 02/16/25 21:31 Nitroglycerin/Dextrose IVPB 45 mcg/min .TITRATE PRN 27 mls/hr Protocol Infusion 5 MCG/MIN Heparin Sodium/Dextrose 25,000 unit in 500 mls @ 0 mls/hr 02/16/25 21:00 02/16/25 21:07 Heparin IV 1,000 unit/hr .Q0M GIOVANNI 20 mls/hr Protocol Administration Per Protocol Discontinued Medications Generic Name Dose Route Start Last Admin Trade Name Freq PRN Reason Stop Dose Admin Fentanyl 25 mcg 02/16/25 20:52 02/16/25 20:54 Fentanyl 100 Mcg/2 Ml Inj IVP 02/16/25 20:53 25 mcg ONCE ONE Administration Heparin Sodium (Porcine) 4,000 unit 02/16/25 20:52 02/16/25 21:06 Heparin 5,000 Unit/0.5 Ml Inj IVP 02/16/25 20:53 4,000 unit ONCE ONE Administration Nitroglycerin 0.4 mg 02/16/25 20:01 02/16/25 20:05 Nitroglycerin 0.4 Mg Tab.Subl SUBLINGUAL 02/16/25 20:02 0.4 mg ONCE ONE Administration Medical Decision Making MDM Narrative Medical decision making narrative: Very pleasant 69-year-old gentleman with a complex cardiac history including coronary disease with multiple previous stents, also CHF. He presents to the ER today with stuttering chest pain throughout the day today. He had a couple of episodes of chest pain this morning and early this afternoon that were resolved with sublingual nitro. He had a 3rd episode of chest pain this evening that is not resolved with nitro and so he came to the ER. Concern here is for possible acute coronary syndrome. Initial EKG and then follow-up EKG do show some changes which are suspicious for ischemia but not definitive for ST elevation. He has new widening of his QRS and new changes in the T-waves in the inferior leads and inversion in the anterior leads. Reviewed with my partner and with Cardiology from [facility]. We agree that these do not meet criteria for STEMI seed analysis laboratory assistant activation. However the patient's troponin is grossly positive at 8. This certainly would represent NSTEMI. Patient is accepted by Cardiology at [facility]. Cardiology would like him to come urgently to [place] but there is some delay with the bed, up to a few hours. Cardiology is urging the transfer center to try to get a bed as soon as possible but at this point we do not see a reason for the patient to ?jump the line? and come emergently. Cardiology does not feel he needs an emergent catheterization tonight. He has already taken aspirin and Plavix today so does not need additional antiplatelets. Cardiology request that we start the patient on heparin-ordered. For pain control we did start the patient nitro drip. With titration up of his nitro, we were able to get his pain down from a 10/10 down to a 1/10. Complicating the nitroglycerin is that he does have low normal blood pressure. Blood pressures were in the 90s over 60s. However he is titrating the nitro drip at its current infusion rate with normotension. Because of potential hypotension we did administer a small bolus of 500 mL of saline. Portable chest x-ray is obtained and does show signs of mild pulmonary edema and and terminal proBNP is abnormal at 12,800. I think this could reflect some component of CHF. From a blood pressure standpoint, he is tolerating a nitro drip well and since he is pain-improved will hold off on further upward titration. Kidney function is normal. Will hold off on diuretics for now because I think he actually needs the intravascular fluid volume to support his pressure. CBC shows a normal white count. Hemoglobin is 13. Platelet count is 179. Lab Data Labs: Lab Results 02/16/25 02/16/25 Range/Units 20:10 21:54 WBC 8.11 7.67 (4.50-11.00) K/uL RBC 4.63 4.27 L (4.30-5.90) m/uL Hgb 13.0 L 12.0 L (13.5-17.5) gm/dL Hct 41.1 38.2 (37.0-53.0) % MCV 89 90 (80-100) fL MCH 28 28 (26-34) pg MCHC 32 31 L (32-36) gm/dL RDW Coeff of Lou 13.1 (11.5-15.5) % Plt Count 179 168 (140-440) K/uL Neut % (Auto) 71.8 (42.0-72.0) % Lymph % (Auto) 19.1 L (20-44) % Desha % (Auto) 7.4 (0.0-11.0) % Eos % (Auto) 1.4 (0.0-7.0) % Baso % (Auto) 0.2 (0.0-3.0) % Neut # (Auto) 5.82 (1.7-7.0) K/uL Lymph # (Auto) 1.50 (0.90-2.90) K/uL Desha # (Auto) 0.60 (0.00-0.90) K/UL Eos # (Auto) 0.11 (0.00-0.50) K/uL Baso # (Auto) 0.02 (0.00-0.30) K/uL Abs Immat Gran (auto) 0.01 (0.00-0.30) K/uL Imm/Tot Granulo (auto) 0.1 % Sodium 139 (135-149) mmol/L Potassium 3.8 (3.6-5.1) mmol/L Chloride 107 (96-114) mmol/L Carbon Dioxide 25 (20-32) mmol/L Anion Gap 7 (7-15) mEq/L BUN 23 (7-30) mg/dL Creatinine 1.2 (0.5-1.5) mg/dL Estimated Creat Clear 68.50 Estimated GFR 66 ml/min Glucose 105 (60-115) mg/dL Calcium 8.8 (8.4-10.6) mg/dL Magnesium 2.1 (1.5-2.6) mg/dL Troponin I 9.23 H* (0.01-0.04) ng/mL NT-Pro-B Natriuret Pep 48195 H (See Note) pg/mL POC Troponin I 8.74 H (0.01-0.04) ng/ml Imaging Data Chest x-ray: Attestation: I have reviewed the pertinent imaging results. Radiologist's impression: IMPRESSION: Suspected mild pulmonary edema. A superimposed pneumonia should be clinically excluded. ECG Data Attestation: I personally reviewed and interpreted this ECG as follows: Interpretation: Sinus tachycardia Rate 110 AR: 180 QRS axis: Right bundle branch block. QRS widening. QRS duration 156 milliseconds Q-waves in leads 2, 3, AVF ST segment/T wave: Are no definite ST segment elevation or depression but he does have a new T-wave inversion in leads V1 and V2. Compared to EKG from 10/24/[address] segments in those these were flat. Also there is a notable change in the ST and T-waves in the inferior leads. Previously he had flat ST segments and T-waves. Today he has upright T-waves but no definite ST elevation on this EKG. Also artifact makes it difficult to determine baseline. QTc: 506 2nd EKG Sinus tachycardia 107 AR interval 188 Select axis deviation. Right bundle-branch block. No acute change from EKG 1. Nonspecific changes in the T-waves of 2, 3, AVF. T-wave inversions in V1 and V2. No STEMI. QTC 477 Critical Care Time Critical Care Time Critical Care Time: Yes Attestation: The patient required my highest level preparedness to intervene emergently and I personally spent this critical care time directly and personally managing the patient. This critical care time included: Obtaining a history; Examining the patient; Pulse oximetry; Ordering and reviewing of studies; Arranging urgent treatment with development of a management plan; Evaluation of patients response to treatment; Frequent reassessment discussions with other providers. This critical care time was performed to assess and manage the high probability of imminent life-threatening deterioration that could result in multiorgan failure. It was exclusive of separate billable procedures and treating other patients and teaching time. Total Critical Care Time in Minutes: 35 Discharge Plan Discharge Clinical Impression: Non-ST elevation NV (NSTEMI), CHF (congestive heart failure) Patient Disposition: Georgette Contreras Prescriptions: No Action losartan 25 mg tablet 12.5 mg PO DAILY lorazepam 1 mg tablet 1 mg PO DAILY PRN duloxetine 30 mg capsule,delayed release(DR/EC) 30 mg PO DAILY Humalog U-100 Insulin 100 unit/mL cartridge 1 sliding scale dose subcut USEASDIRECTD furosemide [Lasix] 20 mg tablet 20 mg PO QAM atorvastatin 40 mg tablet 40 mg PO HS gabapentin 300 mg capsule 1,200 mg PO BID metformin 500 mg tablet extended release 24 hr 1,000 mg PO BIDWM insulin lispro 100 unit/mL insulin pen 6 - 10 unit subcut TIDWM insulin glargine [Lantus Solostar U-100 Insulin] 100 unit/mL (3 mL) insulin pen 20 unit subcut HS clopidogrel 75 mg tablet 75 mg PO DAILY acetaminophen 500 mg tablet 500 mg PO TID PRN aspirin [Adult Low Dose Aspirin] 81 mg tablet,delayed release (DR/EC) 81 mg PO DAILY Jardiance 10 mg tablet 10 mg PO DAILY multivitamin [Daily Multi-Vitamin] Tablet 1 tab PO DAILY nitroglycerin 0.4 mg tablet, sublingual 0.4 mg sublingual Q5-15M PRN Rx Instructions: do not exceed 3 doses per episode Stand Alone Forms: MyHealth Info Instructions
--- NOTE | 2025-02-16 19:52 | XR_ITS ---
Patient: HARRY REYNAGA Facility:?[facility] Patient ID:?[id number] Site Patient ID:?[id number]. Site :?[id number] Study:?XRay-Chest 1V-02/16/2025 8:11:34 PM Ordering Physician:Chun Gore Final Report: INDICATION: Chest pain. TECHNIQUE: Chest radiographs, 1view. COMPARISON: Chest radiograph 10/24/2024. FINDINGS: Cardiovascular/Mediastinum: Magnified cardiac silhouette. Implantable loop recorder. Lungs: No focal consolidation. Mild pulmonary vascular congestion and interstitial edema. Airways: Trachea remains midline. Pleura: No pleural effusions or pneumothorax. Bones: No acute osseous abnormalities. Upper abdomen: Unremarkable. IMPRESSION: Suspected mild pulmonary edema. A superimposed pneumonia should be clinically excluded. Dictated by Tim Walker MD @ 02/16/2025 8:57:46 PM (Electronic Signature)
[2025-02-16] MEDS: NITROGLYCERIN 0.4 MG TAB.SUBL SUBLINGUAL (20:05)
[2025-02-16] MEDS: NITROGLYCERIN/DEXTROSE 25,000 MCG/250 ML BOTTLE 3 MCG IVPB (20:15)
--- OUTSIDE RECORDS SUMMARY | 2025-02-16 20:28 | XMS_ITS | Clinical Summary ---
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 Immunizations No information available. Advance Directives No information available.
[2025-02-16 20:37] LABS: Chloride* 107 mmol/L (96-114); Hematocrit 41.1 % (37.0-53.0); Hemoglobin* 13.0 gm/dL (13.5-17.5); Immature Granulocytes Abs Auto 0.01 K/uL (0.00-0.30); Immature Granulocytes Pct Auto 0.1 %; Mean Corpuscular HGB Conc 32 gm/dL (32-36); Mean Corpuscular Hemoglobin 28 pg (26-34); Mean Corpuscular Volume 89 fL (80-100); Potassium* 3.8 mmol/L (3.6-5.1); RDW Coefficient of Variation % 13.1 % (11.5-15.5); Red Blood Count 4.63 m/uL (4.30-5.90); Sodium* 139 mmol/L (135-149); White Blood Count* 8.11 K/uL (4.50-11.00)
[2025-02-16 20:40] LABS: Anion Gap 7 mEq/L (7-15); Blood Urea Nitrogen* 23 mg/dL (7-30); Calcium* 8.8 mg/dL (8.4-10.6); Carbon Dioxide* 25 mmol/L (20-32); Creatinine* 1.2 mg/dL (0.5-1.5); Est. Creatinine Clearance* 68.50; Estimated Glomerular Filt Rate 66 ml/min; Glucose* 105 mg/dL (60-115)
[2025-02-16] MEDS: HEPARIN 5,000 UNIT/0.5 ML INJ 4000 UNIT IVP (21:06)
[2025-02-16] MEDS: HEPARIN 25,000 UNIT/500 ML BAG 20 UNIT IV (21:07)
[2025-02-16 21:13] LABS: NT Pro B Type NatriureticPept* 12800 pg/mL (See Note)
[2025-02-16 21:27] LABS: Lymphocytes Absolute Auto 1.50 K/uL (0.90-2.90); Slide Review Reflex No
[2025-02-16 22:02] LABS: Hematocrit 38.2 % (37.0-53.0); Hemoglobin* 12.0 gm/dL (13.5-17.5); Mean Corpuscular HGB Conc 31 gm/dL (32-36); Mean Corpuscular Hemoglobin 28 pg (26-34); Mean Corpuscular Volume 90 fL (80-100); Red Blood Count 4.27 m/uL (4.30-5.90); White Blood Count* 7.67 K/uL (4.50-11.00)
[2025-02-16 22:04] LABS: Slide Review Reflex No
[2025-02-16 22:16] LABS: Troponin, Point-of-Care* 8.74 ng/ml (0.01-0.04)
[2025-02-16 22:27] LABS: INR 1.09 (0.91-1.10); Prothrombin Time 14.9 Seconds
[2025-02-16] MEDS: 0.9 % SODIUM CHLORIDE 500 ML 500 ML IV (22:34)
== END 2025-02-16 23:00 | disposition short-term general hospital (02) ==
PROVIDERS: Emergency Provider Emergency Medicine; PCP Family Medicine
DX: I21.4 Non-ST elevation (NSTEMI) myocardial infarction (principal); I50.9 Heart failure, unspecified; I25.10 Atherosclerotic heart disease of native coronary artery without angina pectoris; E11.9 Type 2 diabetes mellitus without complications; Z79.4 Long term (current) use of insulin; Z79.84 Long term (current) use of oral hypoglycemic drugs; Z79.899 Other long term (current) drug therapy
CPT/HCPCS: 36415; 71045; 80048; 83735; 83880; 84484; 85025; 85027; 85610; 85730; 93005; 99285; 99291; A9270; J1644; J3010; J7030

== ENCOUNTER 2025-02-16 22:55 | Outpatient (CLI) | payer MEDICARE, SELFPAY | END 2025-02-16 22:56 | disposition home or self-care (01) | LOC: AMB 02-18 13:59 | PROVIDERS: PCP Family Medicine; Visit Provider Orthopaedic Surgery | DX: I21.4 Non-ST elevation (NSTEMI) myocardial infarction (principal) | CPT/HCPCS: A0425; A0434 ==

== ENCOUNTER 2025-02-27 12:27 | Emergency (ER) | payer MEDICARE, SELFPAY ==
--- OUTSIDE RECORDS SUMMARY | 2009-03-01 04:22 | XMS_ITS | Continuity of Care Document ---
Author Organization [facility] Address [address] [address] [place] [address] Phone Care Team Providers Care Figure Refinisher And Repairer Name Role Phone Unavailable Unavailable Unavailable Allergies, Adverse Reactions, Alerts Substance Reaction Status Criticality OXYCODONE HCL hot flashes Active No Information acetaminophen hot flashes Active No Information PROPOXYPHENE NAPSYLATE hot flashes Active No In formation Medications Medication Instructions Dosage Effective Dates (start - stop) Status Comments Halfprin 81 mg Tab Take one tablet by mouth daily - Active Humalog 100 unit/mL Sub-Q Uses for coverage - Active Lantus 100 unit/mL Sub-Q Takes 20 units in AM and 20 units at night - Active Diovan 80 mg Tab - Active Procedures Procedure Date Postop F/u Visit Incld Gl Services Provided In Urgent Care Setting Offic/outpt E m New Low-m Avulsion Plate Part/compl Ambulatory Surg Boot Ea Services Provided In Urgent Care Setting Advance Directives Directive Yes / No Effective Date File Name No Information Encounters Encounter Description Practice Location Reason(s) For Visit Diagnoses Date Provider Providers Copied on Encounter [facility], [address] [address], [place], [id number], [place] tel:[phone] [facility] Podiatry No Information No Information [facility], [address] [address], [place], [id number], tel:[phone] [facility] 1st Care f/u gr toe procedure (chief complaint) No Information No Information Offic/outpt E m [facility], [facility], [address] [address], [place], [place], [id number], [place] tel:[phone] [facility] 1st Care Left great toe drainage/re dness (chief complaint) No Information No Information Family History Family Member Type Diagnosis Age At Onset No Information Payers Payer name Insurance type Covered republican ID Authoriza tion(s) No Information Social History Type Description Quantity Date Captured Comments Sex Male Smoking Status No Information Chief Complaint And Reason For Visit No Information Reason For Referral Reason For Referral No Information History Of Present Illness Encounter Date Complaint History Of Prese nt Illness No Information Functional Status Date Functional Assessmen t No Information Instructions Date Instruction Additional Infor mation Call if symptoms persist Return to or call [facility] if symptom s not improving Consults arranged Prescribe medications Review medications Review medication side effects Patient education given Return to or call [facility] if symptom s not improving Assessments Type Assessment Date No Information Patient Care Teams Name Effective Dates (start - stop) Status Members No Information
--- OUTSIDE RECORDS SUMMARY | 2009-03-01 04:22 | XMS_ITS | Continuity of Care Document ---
Author Organization [employer] [facility] Address [address] [address] [place] [address] Phone Care Team Providers Care Proof Passer Name Role Phone Unavailable Unavailable Unavailable Allergies, [...] Diagnoses Date Provider Providers Copied on Encounter [facility], [address] [address], [place], [id number], [place] tel:[phone] [facility] Podiatry No Information No Information [employer] [facility], [address] [address], [place], [id number], tel:[phone] [facility] 1st Care f/u gr toe procedure (chief complaint) No Information No Information Offic/outpt E m [facility], [facility], [address] [address], [place], [place], [id number], [place] tel:[phone] [facility] 1st Care Left great toe drainage/re dness (chief complaint) No Information No Information Family History Family Member Type Diagnosis Age At Onset No Information Payers Payer name Insurance type Covered green party ID Authoriza tion(s) No Information Social [...]
[2025-02-27] VITALS (46 sets, daily range): BP systolic 102–127; BP diastolic 70–93; PULSE 86–106; RESP 8–29; TEMP 36.8; O2SAT 91–99; BMI 31.6
--- OUTSIDE RECORDS SUMMARY | 2025-02-27 12:29 | XMS_ITS | Clinical Summary ---
Author Organization [employer] [facility] Address [address] [place] [address] Care Team Providers Care Executive Steward Name Role Phone Lakesha Khan MD Primary Care Provider [facility] Care, [place] Unavailable Nurses, Advanced Heart Failure Unavailable + Hernesto Jolly [facility] Unavailable [phone] Allergies Active Allergy Reactions Criticality Noted [...] 25 Tablet 1 07/29/20 23 2:49 PM PROJECT MANAGEMENT MANAGER 023 Active FreeStyle Jordana 2 ReaderIndications :Type 2 diabetes mellitus with diabetic polyneuropathy, with long-term current use of insulin (HC) To be used to read blood sugars per weight engineer's directions. 1 Each 024 Active metFORMIN (GLUCOPHAGE XR) 500 mg [...] at bedtime. 100 Tablet 2 025 Active DULoxetine 60 mg Delayed-release capsuleIndication [...] units subcutaneous before bedtime. 20 mL 3 04/03/2 025 Active Pen Needle 32 gauge x 5/32 (disposable insulin pen needle)Indication s:Type 2 diabetes mellitus with diabetic polyneuropathy, with long-term current use of insulin (HC) Inject subcutaneous. Remove the 2 covers on the insulin pen needle before administering insulin dose four times daily 400 Each 3 025 Active continuous glucose monitor SENSOR KIT (FreeStyle Jordana 2 Sensor)Indication s:Type 2 diabetes mellitus with diabetic polyneuropathy, with long-term current use of insulin (HC) Change sensor every 14 days AND USE DIRECTED 6 Each 025 Active sacubitril-valsar lan (ENTRESTO) 24-26 mg tablet Take 0.5 Tablets by mouth two times daily. Active ticagrelor (BRILINTA) 90 mg tabletIndications :NSTEMI (non-ST elevated myocardial infarction) (HC) Take 1 Tablet (90 mg) by mouth two times daily. Take for 1 year 60 Tablet 11 02/18/20 25 4:09 PM CDT 025 Active metoprolol succinate (Toprol XL) 25 mg Sustained-Release tabletIndications :Coronary atherosclerosis due to calcified coronary lesion of [place] artery,Acute HFrEF (heart failure with reduced ejection fraction) (HC) Take 1 Tablet (25 mg) by mouth two times daily. 45 Tablet 3 02/20/20 25 2:58 PM CDT 025 Active isosorbide mononitrate (IMDUR) 60 mg extended release tablet 24 hourIndications:N STEMI (non-ST elevated myocardial infarction) (HC) Take 1 Tablet (60 mg) by mouth once daily. 30 Tablet 02/22/20 25 10:24 AM CDT 025 Active empagliflozin (Jardiance) 10 mg tabletIndications :Type 2 diabetes mellitus with diabetic polyneuropathy, with long-term current use of insulin (HC) TAKE ONE TABLET BY MOUTH ONE TIME DAILY 93 Tablet 3 025 Active furosemide (LASIX) 20 mg tabletIndications :Acute HFrEF (heart failure with reduced ejection fraction) (HC) Take 2 Tablets (40 mg) by mouth once daily in the morning. 025 Active empagliflozin (JARDIANCE) 10 mg tabletIndications :Type 2 diabetes mellitus with diabetic polyneuropathy, with long-term current use of insulin (HC) Take 1 Tablet (10 mg) by mouth once daily. 100 Tablet 3 024 2024 Discontinued continuous glucose monitor SENSOR KIT (FreeStyle Jordana 2 Sensor)Indication s:Type 2 diabetes mellitus with diabetic polyneuropathy, with long-term current use of insulin (HC) Change sensor every 14 days AND USE DIRECTED 6 Each 3 025 2024 Discontinued(* Availability/F ormulary change/Cost of medication) metoprolol succinate (Toprol XL) 25 mg Sustained-Release tabletIndications :Coronary atherosclerosis due to calcified coronary lesion of [place] artery,Acute HFrEF (heart failure with reduced ejection fraction) (HC) Take 0.5 Tablets (12.5 mg) by mouth once daily. 45 Tablet 3 025 2024 Discontinued furosemide 20 mg tabletIndications :Acute HFrEF (heart failure with reduced ejection fraction) (HC) Take 1 Tablet (20 mg) by mouth once daily in the morning. 30 Tablet 3 025 2024 Discontinued sacubitril-valsar lan (ENTRESTO 24 MG-26 MG TABLET) 24-26 mg tabletIndications :HFrEF (heart failure with reduced ejection fraction) (HC) Take 1 Tablet by mouth two times daily. 180 Tablet 3 025 2024 Discontinued(O ther - add note to specify (E-cancel not sent)) clopidogreL 75 mg tabletIndications :NSTEMI (non-ST elevated myocardial infarction) (HC) TAKE ONE TABLET BY MOUTH ONE TIME DAILY 90 Tablet 1 025 2024 Discontinued(* IP Discontinued) LORazepam 1 mg tabletIndications :Anxiety due to invasive procedure Take 1 Tablet (1 mg) by mouth one time for 1 dose. 1 Tablet 025 2024 Discontinued(O ther - add note to specify (E-cancel not sent)) furosemide 20 mg tabletIndications :Acute HFrEF (heart failure with reduced ejection fraction) (HC) TAKE ONE TABLET BY MOUTH IN THE MORNING 90 Tablet 3 025 2024 Discontinued(* Medication adjustment) Active Problems Problem Noted Date Diagnosed Date NSTEMI (non-ST elevated myocardial infarction) 0 02/17/2025 Syncope 12/09/2024 Skin ulcer, unspecified ulcer stage [...] ASCVD (arteriosclerotic cardiovascular disease) 05/27/2023 Overview (07/31/2023): EYN-OS-KFWOUXEEA MYOCARDIAL INFARCTION on 07/26/23. He is to stay on Plavix and aspirin for at least a year. Coronary atherosclerosis due to calcified coronary lesion of [place] artery 05/27/2023 Sleep apnea 11/29/2022 11/29/2022 Overview [...] Encounters Date Type Department Care Team Description 02/27/2025 Telephone [facility] [address] [place] [address] Chau Salgado MD Shortness Of Breath 02/26/2025 8:11 AM CDT - 02/26/2025 11:59 PM CDT Hospital Encounter [facility] [address] [place] [address] 02/26/2025 Travel 02/25/2025 12:40 PM CDT Office Visit [facility] [address] [place] [address] Lakesha Khan MD Hospital F/U (Patient states no chest pains breathing is still difficult. patient states he still isn't feeling the best.) 02/25/2025 Travel 02/24/2025 8:13 AM CDT - 02/24/2025 11:59 PM CDT Hospital Encounter [facility] [address] [place] [address] 02/24/2025 Travel 02/23/2025 11:00 AM CDT - 02/23/2025 11:59 PM CDT Hospital Encounter [facility] [address] [place] [address] Marva Palacios MD Cardiovascular symptoms; Ischemic cardiomyopathy; Platelets decreased; Troponin level elevated; NSTEMI (non-ST elevated myocardial infarction) (HC); Chronic systolic CHF (congestive heart failure) (HC); Coronary atherosclerosis due to calcified coronary lesion of [place] artery; ASCVD (arteriosclerotic cardiovascular disease); Moderate episode of recurrent major depressive disorder (HC) 02/23/2025 Travel 02/22/2025 Refill [facility] [address] [place] [address] Lakesha Khan MD Refill Request (Jardiance) 02/22/2025 Telephone [facility] [address] [place] [phone] Hernesto Jolly MBChB Appointment Questions 02/22/2025 Patient Outreach [facility] [address] [place] [address] Catalina Espinosa, RN Primary RN Care Management; Hospital F/U (Lace=62) 02/21/2025 Travel 02/19/2025 Travel 02/16/2025 11:56 PM CDT - 02/21/2025 1:00 PM CDT Hospital Encounter [facility] [address] [place] [address] [facility] Hospitalists Of [place], MD Simone Mejias Timothy Joseph Ngui, MD Schmidt, Maya Portillo MD NSTEMI (non-ST elevated myocardial infarction) (HC) (Primary Dx); Cardiovascular symptoms; SVT (supraventricular tachycardia) (HC); Dizziness; Bradycardia; Coronary atherosclerosis due to calcified coronary lesion of [place] artery; Acute HFrEF (heart failure with reduced ejection fraction) (HC) Discharge Disposition: Home Self Care 02/16/2025 Orders Only [facility] Scanner 1 scan: (1-Ord) STEPHANIE YEE CHEST 1V PORTABLE, 02/16/2025 02/16/2025 Telephone [facility] [address] [place] [address] Graham Cooper MD Inpatient Physician Call 02/16/2025 Travel 02/15/2025 Telephone [facility] [address] [place] [phone] Hernesto Jolly MBChB Concerns (/) 02/12/2025 Travel 02/08/2025 Telephone [facility] [address] [place] [address] Lakesha Khan MD Questions 02/05/2025 Telephone [facility] [address] [place] [address] Sancho Madrid MD Results 02/04/2025 Refill [facility] [address] [place] [address] Lakesha Khan MD Refill Request (Freestyle Jordana 2 Sensor) 01/31/2025 Refill [facility] [address] [facility] [address] [place] [address] Tiffanie Warren NP Refill Request (Furosemide) 01/29/2025 7:15 AM CDT Ancillary Procedure [facility] [address] [place] [address] 01/28/2025 Travel 01/27/2025 8:30 AM CDT Office Visit [facility] [address] [place] [address] Smiley Pelletier LICSW Follow Up 01/27/2025 Travel 01/23/2025 Travel 01/22/2025 Travel 01/15/2025 10:30 AM CDT Office Visit [facility] [address] [place] [address] Smiley Pelletier LICSW Depression; Follow Up 01/15/2025 Travel 01/14/2025 Telephone [facility] [address] [place] [address] Lakesha Khan MD Colorectal Cancer Screening (Cologuard /No Result Obtained /) 01/11/2025 Refill [facility] [address] [place] [address] Lakesha Khan MD Refill Request (Clopidogrel) 01/10/2025 Travel 01/01/2025 9:30 AM CDT Office Visit [address] [address] Smiley Pelletier LICSW Anxiety 01/01/2025 Travel 12/27/2024 Travel 12/24/2024 10:00 AM CDT Office Visit [address] [place] [address] Sancho Madrid MD Musculoskeletal Problem (Follow up right shoulder pain, had ultrasound guided injection on 11/25/24) 12/23/2024 Travel 12/22/2024 4:00 PM CDT Ancillary Procedure [facility] [address] [place] [address] 12/22/2024 9:30 AM CDT Office Visit [facility] [address] [place] [address] Smiley Pelletier, [facility] Follow Up 12/22/2024 Travel 12/19/2024 Travel 12/17/2024 12:40 PM CDT Office Visit [facility] [address] [place] [address] Lakesha Khan MD Hospital F/U (For palpitations and chest pain) 12/17/2024 8:15 AM CDT Ancillary Procedure [facility] [address] [facility] [address] [place] [address] 12/17/2024 Travel 12/16/2024 Travel 12/15/2024 9:30 AM CDT Office Visit [facility] [address] [facility] [address] [place] [address] Hernesto Jolly [facility] Follow Up (3 month F/U, labs prior. 11/27 echo, 12/09 loop recorder and xray. Pt states he went to the hospital 12/09. Currently feels SOB, no cardiac symptoms since . ) 12/15/2024 8:42 AM CDT - 12/15/2024 11:59 PM CDT Hospital Encounter [facility] [address] [place] [address] HFrEF (heart failure with reduced ejection fraction) (HC) 12/15/2024 Travel 12/15/2024 Telephone [facility] [address] [facility] [address] [place] [phone] Brenton Estrada MD Care Coordination 12/12/2024 Travel 12/11/2024 Telephone [facility] [address] [place] [address] Smiley Pelletier LICSW Follow Up 12/11/2024 Patient Outreach [facility] [address] [place] [address] Catalina Espinosa, ADALGISA Primary RN Care Management; Hospital F/U (Lace=70) 12/10/2024 Travel 12/09/2024 12:39 PM CDT - 12/10/2024 3:08 PM CDT Hospital Encounter [facility] [address] [place] [address] Josef Ramirez MD [facility]ists Of [place], MD Jennifer Palacio, MD Shanel Garcia (Primary Dx); Chest pain, unspecified type; Palpitations; Syncope, unspecified syncope type; Acute HFrEF (heart failure with reduced ejection fraction) (HC); NSTEMI (non-ST elevated myocardial infarction) (HC) Discharge Disposition: Home Self Care 12/09/2024 10:30 AM CDT Office Visit [facility] [address] [place] [address] Smiley Pelletier LICSW Anxiety 12/09/2024 Travel 12/07/2024 11:00 AM CDT Office Visit [facility] [address] [facility] [address] [place] [address] Brenton Estrada MD Follow Up (F/U. Echo 11/27. Device check 10/29. Pt states feeling good. No recent cardiac symptoms. ) 12/07/2024 Travel 12/05/2024 Travel 12/04/2024 Travel 12/02/2024 Travel 12/01/2024 Telephone [facility] [address] [place] [address] Laura Rosario MD Results 11/30/2024 9:30 AM CDT Office Visit [facility] [address] [place] [address] Smiley Pelletier, [facility] Follow Up 11/30/2024 Travel from Last 3 Months Immunizations Immunization [...] 06/20/2023 Td (Age >=7 Years) 08/12/2005,08/28/1999 Tdap 12/21/2024,08/13/2014 Zoster (Shingrix-RZV, recombinant) 07/29/2020, Family History Medical [...] Given: Yes Alcohol Use Standard Drinks/Week Comments Not Currently 1 (1 standard drink = 0.6 oz pur e alcohol) socially PHQ-2 Answer Date Recorded PHQ-2 TOTAL SCORE 4 02/23/2025 Social Connections Answer Date Recorded Do you often feel lonely or isolated from those around you? 0 02/19/2025 Financial Resource Strain Answer Date R ecorded Difficulty of Paying Living Expenses 3 11/29/2022 Difficulty of Paying Living Expenses Not on file 11/29/2022 Food Insecurity Answer Date Recorded Do you worry your food will run out before you are able to buy more? 1 02/17/2025 Transportation Needs Answer Date Record ed Does lack of transportation keep you from medica l appointments? 1 02/17/2025 Does lack of transportation keep you from work, meetings or getting things that you need? 1 02/17/2025 Housing Stability Answer Date Recorded What is your housing situation today? 1 02/17/2025 Interpersonal Safety Answer Date Record ed Are you being hit, kicked, p ushed or yelled at (see row info)? No 02/17/2025 Interpersonal Safety Abuse 12 - 18 Not on file 02/17/2025 Interpersonal Safety Ambulatory Vulnerability No t on file 02/17/2025 Utilities Answer Date Recorded Do you have trouble paying f or utilities (for example, heat, electricity, water, phone)? 1 02/17/2025 Sex and Gender Information Value Date Recorded Sex Assigned at Male 04/28/2021 10:10 PM CDT Legal Sex Male 6:41 AM PROJECT MANAGEMENT MANAGER Gender Identity Male 04/28/2021 10:10 PM CDT Sexual Orientation Straight 04/28/2021 10 :10 PM CDT Occupation Industry Job Start Date Job End Date Not on file Not on file Not on file Not on file Obstetrics History Last Filed Vital Signs Vital Sign Reading Time Taken Comments Blood Pressure 111/75 02/25/2025 12:43 PM CDT Pulse 84 02/25/2025 12:43 PM CDT Temperature 36.8 C (98.2 F) 02/21/2025 8:17 AM CDT Respiratory Rate 19 02/21/2025 8:17 AM CDT Oxygen Saturation 98% 02/25/2025 12: 43 PM CDT Inhaled Oxygen Concentration - - Weight 112.6 kg (248 lb 3.2 oz) 025 12:43 PM CDT Height 188 cm (6' 2) 12/15/2024 9:16 AM CDT Body Mass Index 31.87 12/15/2024 9:16 AM CDT Plan of Treatment Upcoming Encounters Date Type Department Care Team (Late st Contact Info) Description 03/01/2025 7:00 AM CDT Appointment [address] [address] 03/01/2025 9:20 AM CDT Office Visit [facility] [address] [place] [address] Sancho Madrid MD [address] [place] [address] 03/02/2025 9:30 AM CDT Office Visit [facility] [address] [place] [address] [facility] [address] [place] [address] 03/03/2025 8:30 AM CDT Appointment [address] [address] 03/03/2025 12:40 PM CDT Office Visit [facility] [address] [place] [address] Lakesha Khan MD [address] [place] [address] 03/05/2025 8:30 AM CDT Appointment [address] [address] 03/08/2025 8:30 AM CDT Appointment [facility] [address] [facility] [place] [address] 03/10/2025 8:30 AM CDT Appointment [facility] [address] [place] [address] 03/12/2025 8:30 AM CDT Appointment [facility] [address] [facility] [place] [address] 03/15/2025 8:30 AM CDT Appointment [facility] [address] [facility] [place] [address] 03/17/2025 8:30 AM CDT Appointment [facility] [address] [facility] [place] [address] 03/18/2025 2:00 PM CDT Appointment [facility] [address] [place] [address] 03/18/2025 3:00 PM CDT Office Visit [facility] [address] [facility] [address] [place] [address] Hernesto Jolly, [facility] [address] [facility] [address] [place] [address] 03/19/2025 8:30 AM CDT Appointment [facility] [address] [facility] [place] [address] 03/22/2025 8:30 AM CDT Appointment [facility] [address] [facility] [place] [address] 03/24/2025 8:30 AM CDT Appointment [facility] [address] [facility] [place] [address] 03/26/2025 8:30 AM CDT Appointment [facility] [address] [facility] [place] [address] 03/29/2025 8:30 AM CDT Appointment [facility] [address] [facility] [place] [address] 03/31/2025 8:30 AM CDT Appointment [facility] [address] [facility] [place] [address] 04/02/2025 8:30 AM CDT Appointment [facility] [address] [facility] [place] [address] 04/05/2025 8:30 AM CDT Appointment [facility] [address] [facility] [place] [address] 04/07/2025 8:30 AM CDT Appointment [facility] [address] [facility] [place] [address] 04/09/2025 8:30 AM CDT Appointment [facility] [address] [place] [address] 04/14/2025 8:30 AM CDT Appointment [facility] [address] [place] [address] 04/16/2025 8:30 AM CDT Appointment [facility] [address] [facility] [place] [address] 04/19/2025 8:30 AM CDT Appointment [facility] [address] [place] [address] 04/21/2025 8:30 AM CDT Appointment [facility] [address] [place] [address] 04/23/2025 8:30 AM CDT Appointment [facility] [address] [place] [address] 04/26/2025 8:30 AM CDT Appointment [facility] [address] [facility] [place] [address] 04/28/2025 8:30 AM CDT Appointment [facility] [address] [place] [address] 04/29/2025 Cardiac Device Check [facility] [phone] 04/30/2025 8:30 AM CDT Appointment [facility] [address] [facility] [place] [address] 05/03/2025 8:30 AM CDT Appointment [facility] [address] [place] [address] 05/05/2025 8:30 AM CDT Appointment [facility] [address] [place] [address] 05/07/2025 8:30 AM CDT Appointment [facility] [address] [place] [address] 05/10/2025 8:30 AM CDT Appointment [facility] [address] [place] [address] 05/12/2025 8:30 AM CDT Appointment [facility] [address] [place] [address] 05/14/2025 8:30 AM CDT Appointment [facility] [address] [place] [address] 05/17/2025 8:30 AM CDT Appointment [facility] [address] [facility] [place] [address] Health Maintenance Due Date Last Done Comments Influenza Vaccine (#1) 2025 , 05/24/2021, 05/20/2020, Additional history exists Medicare Wellness for age 65+ 11/13/2025 11/12/2024, 02/18/2023 BMI (ht and wt on same day) for age 18+ 12/15/2025 12/15/2024, 12/07/2024, 11/12/2024, Additional history exists Depression screening for age 12+ 02/25/2026 02/25/2025, 02/23/2025, 02/22/2025, Additional history exists Fecal testing sDNA-FIT (Cologuard) for age 45-75 02/02/2028 02/01/2025, 12/14/2021, 12/14/2021 Lipids for age 45-75 08/02/2029 08/02/2024, 09/19/2023, 05/27/2023, Additional history exists Tetanus booster 12/21/2034 12/21/2024, 09/2014, 08/12/2005, Additional history exists Hepatitis C screening for age 18-79 Completed 04/16/2017 Zoster (shingles) series for age 50+ Completed 07/29/2020, 12/03/2018 Pneumococcal series for age 50+ Completed 04/30/2022, 05/26/2013, 06/19/2006, Additional history exists RSV vaccine for adults or Completed 06/20/2023 COVID-19 vaccine series Completed 12/18/19, 05/07/2024, 11/21/2023, Additional history exists Hepatitis B series for 19+ Aged Out N o longer eligible based on patient's age to complete this topic Procedures Procedure Name Priority Date/Time Associated Diagnosis Comments SCAN-CARDIAC REHABILITATION 02/26/2025 8:18 AM CDT PRO-BNP Routine 02/25/2025 1:44 PM CDT SVT (supraventricular tachycardia) (HC) Acute HFrEF (heart failure with reduced ejection fraction) (HC) BASIC METABOLIC PANEL Routine 02/25/2025 1:43 PM CDT Hospital discharge follow-up HEMOGLOBIN A1C Routine 02/25/2025 1:43 PM CDT Type 2 diabetes mellitus with diabetic polyneuropathy, with long-term current use of insulin (HC) GLUCOSE METER Routine 02/24/2025 9:02 AM CDT GLUCOSE METER Routine 02/24/2025 8:26 AM CDT SCAN-CARDIAC REHABILITATION 02/24/2025 8:23 AM CDT GLUCOSE METER Timed 02/21/2025 10:54 AM CDT GLUCOSE METER Timed 02/21/2025 7:37 AM CDT GLUCOSE METER Timed 02/20/2025 9:35 PM CDT GLUCOSE METER Timed 02/20/2025 5:05 PM CDT EKG 12 LEAD STAT 02/20/2025 4:43 PM CDT GLUCOSE METER Timed 02/20/2025 12:34 PM CDT GLUCOSE METER Timed 02/20/2025 7:35 AM CDT TROPONIN T (HS) ONE TIME Timed 02/20/2025 3:43 AM CDT TROPONIN T (HS) ACUTE W/2HR REFLEX STAT 02/20/2025 12:50 AM CDT EKG 12 LEAD STAT 02/20/2025 12:21 AM CDT EKG 12 LEAD Routine 02/20/2025 12:17 AM CDT SVT (supraventricular tachycardia) (HC) Dizziness Bradycardia GLUCOSE METER Timed 02/19/2025 10:16 PM CDT GLUCOSE METER Timed 02/19/2025 5:28 PM CDT EKG 12 LEAD STAT 02/19/2025 12:21 PM CDT GLUCOSE METER Timed 02/19/2025 11:10 AM CDT GLUCOSE METER Timed 02/19/2025 8:01 AM CDT TROPONIN T (HS) ONE TIME FREDI 02/19/2025 7:27 AM CDT BASIC METABOLIC PANEL Early AM 02/19/2025 7:27 AM CDT GLUCOSE METER Timed 02/18/2025 9:14 PM CDT EKG 12 LEAD FREDI 02/18/2025 8:40 PM CDT GLUCOSE METER Timed 02/18/2025 5:36 PM CDT D-DIMER,QUANTITATIVE Today 02/18/2025 12:37 PM CDT LACTATE VENOUS Today 02/18/2025 12:37 PM CDT GLUCOSE METER Timed 02/18/2025 11:31 AM CDT GLUCOSE METER Timed 02/18/2025 8:10 AM CDT HEPATIC FUNCTION PANEL FREDI 8:08 AM CDT CBC WITH AUTO DIFFERENTIAL Early AM 02/18/2025 8:08 AM CDT MAGNESIUM Early AM 02/18/2025 8:08 AM CDT CBC WITH AUTO DIFFERENTIAL Early AM 02/18/2025 8:08 AM CDT TROPONIN T (HS) ONE TIME Early AM 02/18/2025 8:08 AM CDT BASIC METABOLIC PANEL Early AM 02/18/2025 8:08 AM CDT EKG 12 LEAD Early AM 02/18/2025 5:41 AM CDT SCAN-CARDIAC STRIP 02/18/2025 12 :27 AM CDT GLUCOSE METER Timed 02/17/2025 8:52 PM CDT GLUCOSE METER Timed 02/17/2025 4:43 PM CDT ECHO TTE COMPLETE W CONTRAST Routine 02/17/2025 2:58 PM CDT EKG 12 LEAD STAT 02/17/2025 1:42 PM CDT HCHG ACTIVATED CLOTTING TM CV Timed 02/17/2025 12:57 PM CDT HCHG ACTIVATED CLOTTING TM CV Timed 02/17/2025 12:30 PM CDT CVL CORONARY ANGIOGRAM POSS PCI Routine 02/17/2025 12:01 PM CDT Cardiovascular symptoms SCAN CORRESP-EKG RESULTS 02/17/2025 11:56 AM CDT TROPONIN T (HS) ONE TIME Today 02/17/2025 9:32 AM CDT BASIC METABOLIC PANEL Today 02/17/2025 9:32 AM CDT SCAN-CARDIAC STRIP 02/17/2025 8: 33 AM CDT EKG 12 LEAD STAT 02/17/2025 8:08 AM CDT HEMOGLOBIN Early AM 02/17/2025 7:20 AM CDT PLATELET COUNT Early AM 02/17/2025 7:20 AM CDT GLUCOSE METER Timed 02/17/2025 4:56 AM CDT SCAN-CARDIAC STRIP 02/17/2025 4: 02 AM CDT HCHG ACTIVATED CLOTTING TM CV Timed 02/17/2025 2:43 AM CDT HCHG ACTIVATED CLOTTING TM CV Timed 02/17/2025 2:29 AM CDT CVL CORONARY ANGIOGRAM POSS PCI Routine 02/17/2025 2:20 AM CDT EKG 12 LEAD STAT 02/17/2025 1:06 AM CDT LACTATE VENOUS Today 02/17/2025 1:04 AM CDT PRO-BNP Add On 02/17/2025 1:03 AM CDT PROTIME-INR STAT 02/17/2025 1:03 AM CDT CBC W PLT NO DIFF STAT 02/17/2025 1:0 3 AM CDT BASIC METABOLIC PANEL STAT 02/17/2025 1:03 AM CDT TROPONIN T (HS) ONE TIME STAT 02/17/2025 1:03 AM CDT APTT FREDI 02/17/2025 12:56 AM CDT EKG 12 LEAD FREDI 02/17/2025 12:26 AM CDT SCAN-RADIOLOGY REPORT 02/16/2025 12:00 AM CDT SDNA-FIT EXTERNAL (COLOGUARD) Routine 02/01/2025 7:30 PM [...] 8:49 AM CDT Coronary artery disease involving [place] coronary artery of [place] heart without angina pectoris Dizziness PRO-BNP Today [...] with reduced ejection fraction) (HC) Ischemic cardiomyopathy LIPID PANEL FREDI 08/02/2024 8:07 PM PROJECT MANAGEMENT MANAGER ANTI HCV Routine 04/16/2017 9:14 AM CDT Encounter for hepatitis C screening test for low risk patient from Last 3 Months or Most Recently Relevant to Health Maintenance Results * SCAN-CARDIAC REHABILITATION (02/26/2025 8:18 AM CDT) Only the most recent of2 resultswithin the time period is included. us Scanner OTHER Final Result * (ABNORMAL) PRO-BNP (02/25/2025 1:44 PM CDT) Only the most recent of4 resultswithin the time period is included. NT PROBNP 6,682(H) <125 pg/mL [facility] Blood BLOOD SPECIMEN / Unknown 02/25/2025 1:44 PM CDT 02/25/2025 1:45 PM CDT us [facility] SEND OUTS Final Result Performing Organization Address City/[facility]/ZIP Co de Phone Number [facility] [address] [place] [address], [facility] [address] [place] [address] * (ABNORMAL) HEMOGLOBIN A1C (02/25/2025 1:43 PM CDT) HEMOGLOBIN A1C 8.6(H) <5.7 % [employer] Comment: For someone without known diabetes, a hemoglobin A1c value of 6.5% or greater indicates that they may have diabetes and this should be confirmed with a follow-up test. For someone with known diabetes, a value <7% indicates that their diabetes is well controlled and a value greater than or equal to 7% indicates suboptimal control. A1c targets should be individualized based on duration of diabetes, age, comorbid conditions, and other considerations. Currently, no consensus exists regarding use of hemoglobin A1c for diagnosis of diabetes for children. Blood BLOOD SPECIMEN / Unknown 02/25/2025 1:43 PM CDT 02/25/2025 1:43 PM CDT Lakesha Khan MD CHEMISTRY Final Resul t Performing Organization Address City/[facility]/ZIP Co de Phone Number [facility] [address] [place] [address], [facility] [address] [place] [address] * BASIC METABOLIC PANEL (02/25/2025 1:43 PM CDT) Only the most recent of5 resultswithin the time period is included. GLUCOSE 90 65 - 99 mg/dL [facility] Morocho Comment: Fasting reference interval UREA NITROGEN (BUN) 25 7 - 25 mg/dL Belly Ballotod Rashawn CREATININE 1.15 0.70 - 1.35 mg/dL [facility] EGFR 69 > OR = 60 mL/min/1. 73m2 Belly Ballotod Rashawn BUN/CREATININE RATIO SEE NOTE: 6 - 22 (calc) [facility] Comment: Not Reported: BUN and Creatinine are within reference range. SODIUM 141 135 - 146 mmol/L [facility] POTASSIUM 4.8 3.5 - 5.3 mmol/L [facility] CHLORIDE 106 98 - 110 mmol/L [facility] CARBON DIOXIDE 28 20 - 32 mmol/L [facility] ELECTROLYTE BALANCE 7 7 - 17 mmol/L (calc) [facility] CALCIUM 9.1 8.6 - 10.3 mg/dL [facility] Blood BLOOD SPECIMEN / Unknown 02/25/2025 1:43 PM CDT 02/25/2025 1:43 PM CDT Lakesha Khan MD CHEMISTRY Final Resul t Performing Organization Address City/[facility]/ZIP Co de Phone Number [facility] [address] [place] [address], [facility] [address] [place] [address] * (ABNORMAL) GLUCOSE METER (02/24/2025 9:02 AM CDT) Only the most recent of23 resultswithin the time period is included. GLUCOSE METER 249(H) 65 - 100 mg/dL 02/24/2025 9:[address] [facility] Blood BLOOD SPECIMEN / Unknown 02/24/2025 9:02 AM CDT 02/24/2025 9:06 AM CDT us Doctor Unknown CHEMISTRY Final Result Performing Organization Address City/[facility]/ZIP Co de Phone Number [facility] [address] [place] [address] * 12 Lead EKG - PRN (02/20/2025 4:43 PM CDT) Only the most recent of12 resultswithin the time period is included. Interpretation Sinus tachycardia Left axis deviation Right bundle branch block Inferior infarct (cited on or before 18-Feb-2025) Abnormal ECG When compared with ECG of 20-Feb-2025 00:21, QT has shortened BEYOND NOW Ventricular Rate 105 BPM BEYOND NOW Atrial Rate 105 BPM BEYOND NOW P-R Interval 206 ms BEYOND NOW QRS Duration 148 ms BEYOND NOW QT 354 ms BEYOND NOW QTc 467 ms BEYOND NOW P [place] 47 degrees BEYOND NOW R [place] -87 degrees BEYOND NOW T [place] 92 degrees BEYOND NOW 02/20/2025 4:43 PM CDT 02/21/2025 11:22 PM CDT us Adriano Mccann MD EKG ORD Final Re sult BEYOND NOW [place], [place] * (ABNORMAL) TROPONIN T (HS) ONE TIME (02/20/2025 3:43 AM CDT) Only the most recent of6 resultswithin the time period is included. [facility] TROPONIN T HS 2,677(H) 6-15 ng/L ng/L 02/20/2025 5:03 AM CDT [facility] Blood BLOOD SPECIMEN / Unknown Venipuncture / Unknown 02/20/2025 3:43 AM CDT 02/20/2025 4:29 AM CDT Karely Solano NP CHEMISTRY Final Result Performing Organization Address City/[facility]/ZIP Co de Phone Number [facility] [address] [place] [address], * (ABNORMAL) TROPONIN T (HS) ACUTE W/2HR REFLEX (02/20/2025 12:50 AM CDT) Only the most recent of2 resultswithin the time period is included. [facility] TROPONIN T HS 2,957(H) 6-15 ng/L ng/L 02/20/2025 1:25 AM CDT [email or web address] TRAL LABORATORY Blood BLOOD SPECIMEN / Unknown Venipuncture / Unknown 02/20/2025 12:50 AM CDT 02/20/2025 12:56 AM CDT Narrative [facility] - 02/20/2025 1:25 AM CDT hs-cTnT (Elecsys Troponin T Gen 5) [...] low risk in emergency department patient population. Karely Solano NP CHEMISTRY Final Result [facility] [address] [place] [address], * LACTATE VENOUS (02/18/2025 12:37 PM CDT) Only the most recent of2 resultswithin the time period is included. LACTATE,VENOUS 1.3 0.5 - 2.0 mmol/L 02/18/2025 1:19 PM CDT [facility] Blood BLOOD SPECIMEN / Unknown Venipuncture / Unknown 02/18/2025 12:37 PM CDT 02/18/2025 12:43 PM CDT Argelia Daley BONE COOKING OPERATOR CHEMISTRY Final Resu lt Performing Organization Address [facility] Co de Phone Number [facility] [address] [place] [address], [place] * D-DIMER,QUANTITATIVE (02/18/2025 12:37 PM CDT) Pathologist [facility] D-DIMER,QUANTI TATIVE 0.33 See comment FEU mcg/mL 02/18/2025 1:14 PM CDT [facility] Blood BLOOD SPECIMEN / Unknown Venipuncture / Unknown 02/18/2025 12:37 PM CDT 02/18/2025 12:43 PM CDT Narrative [facility] - 02/18/2025 1:14 PM CDT The cut off value for exclusion of Deep Vein Thrombosis and / or Pulmonary Embolism is 0.50 FEU mcg/mL For patients greater than 50 years of age the upper limit is age dependent and was calculated with the formula: (PATIENT AGE x 0.01) FEU mcg/mL = Upper limit of normal range Argelia Daley BONE COOKING OPERATOR HEMATOLOGY Final Resu lt Performing Organization Address [facility] Co de Phone Number [facility] [address] [place] [address], [place] * (ABNORMAL) CBC WITH AUTO DIFFERENTIAL (02/18/2025 8:08 AM CDT) Only the most recent of2 resultswithin the time period is included. Pathologist [facility] WHITE BLOOD COUNT 6.8 4.5 - 11.0 thou/cu mm 02/18/2025 8:39 AM CDT [facility] RED BLOOD COUNT 4.47 4.30 - 5.90 mil/cu mm 02/18/2025 8:39 AM CDT [facility] HEMOGLOBIN 12.6(L) 13.5 - 17.5 g/dL 02/18/2025 8:39 AM T [facility] HEMATOCRIT 40.4 37.0 - 53.0 % 02/18/2025 8:39 AM [facility] MCV 90 80 - 100 fL 02/18/2025 8:39 AM [facility] MCH 28.2 26.0 - 34.0 pg 02/18/2025 8:39 AM [facility] MCHC 31.2(L) 32.0 - 36.0 g/dL 02/18/2025 8:39 AM [facility] RDW 13.8 11.5 - 15.5 % 02/18/2025 8:39 AM [facility] PLATELET COUNT 152 140 - 440 thou/cu mm 02/18/2025 8:39 AM [facility] MPV 10.1 6.5 - 11.0 fL 02/18/2025 8:39 AM [facility] NRBC 0.0 % 02/18/2025 8:39 AM [facility] ABS NRBC 0.0 thou /cu mm 02/18/2025 8:39 AM [facility] % NEUT 80.0 % 02/18/2025 8:39 AM [facility] % LYMPH 11.4 % 02/18/2025 8:39 AM [facility] % MONO 7.5 % 02/18/2025 8:39 AM [facility] % EOS 0.7 % 02/18/2025 8:39 AM [facility] % BASO 0.1 % 02/18/2025 8:39 AM [facility] % IMMATURE GRAN (METAS,MYELOS,DC OS) 0.3 % 02/18/2025 8:39 AM CDT [facility] ABSOLUTE NEUTROPHILS 5.4 1.7 - 7.0 thou/cu mm 02/18/2025 8:39 AM CDT [facility] ABSOLUTE LYMPHOCYTES 0.8(L) 0.9 - 2.9 thou/cu mm 02/18/2025 8:39 AM CDT [facility] ABSOLUTE MONOCYTES 0.5 <0.9 thou/cu mm 02/18/2025 8:39 AM CDT [facility] ABSOLUTE EOSINOPHILS 0.1 <0.5 thou/cu mm 02/18/2025 8:39 AM CDT [facility] ABSOLUTE BASOPHILS 0.0 <0.3 thou/cu mm 02/18/2025 8:39 AM CDT [facility] ABSOLUTE IMMATURE GRANULOCYTES(MET ,MYELOS,PROS) 0.0 <0.3 thou/cu mm 02/18/2025 8:39 AM CDT [facility] Blood BLOOD SPECIMEN / Unknown Venipuncture / Unknown 02/18/2025 8:08 AM CDT 02/18/2025 8:35 AM CDT Silvana Nichols MD HEMATOLOGY Fin al Result [facility] [address] [place] [address], * Magnesium AM (02/18/2025 8:08 AM CDT) MAGNESIUM 2.0 1.6 - 2.4 mg/dL 02/18/2025 9:08 AM CDT [facility] Blood BLOOD SPECIMEN / Unknown Venipuncture / Unknown 02/18/2025 8:08 AM CDT 02/18/2025 8:35 AM CDT Silvana Nichols MD CHEMISTRY Fin al Result [facility] [address] [place] [address], * (ABNORMAL) HEPATIC FUNCTION PANEL (02/18/2025 8:08 AM CDT) ALBUMIN 3.4(L) 4.0 - 4.9 g/dL 02/18/2025 9:52 AM CDT [facility] PROTEIN,TOTAL 6.3 6.0 - 8.0 g/dL 02/18/2025 9:52 AM CDT [facility] BILIRUBIN,TOTAL 1.9(H) 0.0 - 1.2 mg/dL 02/18/2025 9:52 AM CDT [facility] BILIRUBIN,DIRECT 0.9(H) 0.0 - 0.2 mg/dL 02/18/2025 9:52 AM CDT [facility] BILIRUBIN,INDIRE CT 1.0(H) 0.2 - 0.8 mg/dL 02/18/2025 9:52 AM CDT [facility] ALK PHOSPHATASE 33(L) 40 - 129 IU/L 02/18/2025 9:52 AM CDT [facility] ALT (SGPT) 22 10 - 50 IU/L 02/18/2025 9:52 AM CDT [facility] AST (SGOT) 76(H) 10 - 50 IU/L 02/18/2025 9:52 AM CDT [facility] Blood BLOOD SPECIMEN / Unknown Venipuncture / Unknown 02/18/2025 8:08 AM CDT 02/18/2025 8:35 AM CDT us Argelia Daley BONE COOKING OPERATOR CHEMISTRY Final Resu lt [facility] [address] [place] [address], * SCAN-CARDIAC STRIP (02/18/2025 12:27 AM CDT) us Scanner OTHER Final Result * ECHO TTE COMPLETE W CONTRAST (02/17/2025 2:58 PM CDT) AORTIC VALVE MEAN PG 4 mmHg EJECTION FRACTION 21 % LVEDD 6.9 cm Anatomical Region Laterality Modality Ultrasound 02/17/2025 2:18 PM CDT Narrative 02/17/2025 3:29 PM CDT ECHOCARDIOGRAM DALE LUNA : 1955 69 years Study Date: 02/17/2025 2:18:31 PM Gender: M BP: 109/73 mmHg Height: 188.00 cm BSA: 2.36 m Weight: 110.00 kg Tech: ELLIOTT Michaels MD: SILVANA NICHOLS Site: [facility] Reading Location: [facility] IP Patient Location: Inpatient. Procedure: 2D w/ Contrast, Color Doppler and Spectral Doppler. Indication for study: DC Cardiac Rhythm: Regular.Study quality: Technically limited. Final Impressions: 1. Technically limited exam. 2. Severely increased left ventricular size, normal wall thickness, severely reduced global systolic function, calculated EF of 21 %. 3. Multiple segmental abnormalities exist. See findings. 4. Echo contrast was administered to enhance visualization of all left ventricular segments. 5. Right ventricular cavity size is not well visualized, global systolic RV function is mildly reduced. 6. Moderately enlarged left atrium. 7. The aortic valve is sclerotic, no stenosis and no regurgitation. 8. The mitral valve is sclerotic, trace mitral regurgitation. 9. Tricuspid valve is not well visualized, trace tricuspid regurgitation. 10. No pericardial effusion. Chamber Sizes and Function Severely increased left ventricular size, normal wall thickness, severely reduced global systolic function, calculated EF of 21 %. Left atrial size is moderately enlarged. Right ventricular cavity size is not well visualized, global systolic RV function is mildly reduced. The right atrium is not well visualized. The pulmonary artery is not well visualized. The sinus of Valsalva is normal sized. The ascending aorta is normal sized. The mid and distal anterior wall, mid and distal lateral wall, mid and distal anterior septum, entire apex, mid and distal inferior wall, mid posterior segment, and mid septum segment are akinetic. The basal anterior septum segment, basal posterior segment, basal lateral segment, basal anterior segment, basal inferior segment, and basal septum segment are hypokinetic. Valves, RV Pressures and Diastolic Function The aortic valve is sclerotic, no stenosis and no regurgitation. The mitral valve is sclerotic, trace mitral regurgitation. Diastolic function assessment not performed. The tricuspid valve is not well visualized, trace tricuspid regurgitation. The pulmonic valve is not well visualized. No pulmonary regurgitation. Masses, Effusion, Shunts There is no pericardial effusion. The inferior vena cava is not well visualized, respiratory size variation not well visualized. No left to right shunting was detected by limited color flow Doppler interrogation of the interatrial septum. MEASUREMENTS AND CALCULATIONS 2-D Measurements and LV Function: LVID (d) 6.9 cm Planimetered EF 21 % LVID (s) 6.0 cm LV FS% (2D) 14 % IVS (d) 0.9 cm LVOT diameter 2.6 cm LVPW (d) 1.0 cm HR 123 bpm Ao Sinus 3.6 cm LA Vol index 46 ml/m2 Ao Sinus ULN 4.2 cm * Asc Ao 3.8 cm Asc Ao ULN 4.2 cm * * Input BSA outside of range, reported values correspond to BSA = 2.1 Aortic Valve: Vmax 1.3 m/s GOVIND (V) 4.19 cm VTI 0.22 m GOVIND (I) 3.46 cm LVOT V max 1.0 m/s Max PG 7 mmHg LVOT VTI 0.14 m Mean PG 4 mmHg SV 76 ml Dim Index 0.65 SV index 32 ml/m CO 9.3 l/min CI 4.0 l/min/m Tricuspid Valve and estimated PA pressures: TAPSE 1.1 cm Contrast documentation: 2 ml diluted Definity, lot #[id number][facility] [id number] was administered peripherally to enhance visualization of all left ventricular segments. . This study was interpreted by an [facility] accredited facility. Final Procedure Note Addie Acuña, [facility] - 02/17/2025 ECHOCARDIOGRAM DALE LUNA : 1955 69 years Study Date: 02/17/2025 2:18:31 PM Gender: M BP: 109/73 mmHg Height: 188.00 cm BSA: 2.36 m Weight: 110.00 kg Tech: ELLIOTT Michaels MD: SILVANA NICHOLS Site: [facility] Reading Location: [facility] Patient Location: Inpatient. Procedure: 2D w/ Contrast, Color Doppler and Spectral Doppler. Indication for study: DC Cardiac Rhythm: Regular.Study quality: Technically limited. Final Impressions: 1. Technically limited exam. 2. Severely increased left ventricular size, normal wall thickness,severely reduced global systolic function, calculated EF of 21 %. 3. Multiple segmental abnormalities exist. See findings. 4. Echo contrast was administered to enhance visualization of all leftventricular segments. 5. Right ventricular cavity size is not well visualized, global systolicRV function is mildly reduced. 6. Moderately enlarged left atrium. 7. The aortic valve is sclerotic, no stenosis and no regurgitation. 8. The mitral valve is sclerotic, trace mitral regurgitation. 9. Tricuspid valve is not well visualized, trace tricuspidregurgitation. 10. No pericardial effusion. Chamber Sizes and Function Severely increased left ventricular size, normal wall thickness, severelyreduced global systolic function, calculated EF of 21 %. Left atrial sizeis moderately enlarged. Right ventricular cavity size is not wellvisualized, global systolic RV function is mildly reduced. The rightatrium is not well visualized. The pulmonary artery is not wellvisualized. The sinus of Valsalva is normal sized. The ascending aorta isnormal sized. The mid and distal anterior wall, mid and distal lateralwall, mid and distal anterior septum, entire apex, mid and distal inferiorwall, mid posterior segment, and mid septum segment are akinetic. Thebasal anterior septum segment, basal posterior segment, basal lateralsegment, basal anterior segment, basal inferior segment, and basal septumsegment are hypokinetic. Valves, RV Pressures and Diastolic Function The aortic valve is sclerotic, no stenosis and no regurgitation. Themitral valve is sclerotic, trace mitral regurgitation. Diastolic functionassessment not performed. The tricuspid valve is not well visualized,trace tricuspid regurgitation. The pulmonic valve is not well visualized.No pulmonary regurgitation. Masses, Effusion, Shunts There is no pericardial effusion. The inferior vena cava is not wellvisualized, respiratory size variation not well visualized. No left toright shunting was detected by limited color flow Doppler interrogation ofthe interatrial septum. MEASUREMENTS AND CALCULATIONS 2-D Measurements and LV Function: LVID (d) 6.9 cm Planimetered EF 21% LVID (s) 6.0 cm LV FS% (2D) 14% IVS (d) 0.9 cm LVOT diameter2.6 cm LVPW (d) 1.0 cm HR123 bpm Ao Sinus 3.6 cm LA Vol index 46ml/m2 Ao Sinus ULN 4.2 cm * Asc Ao 3.8 cm Asc Ao ULN 4.2 cm * * Input BSA outside of range, reported values correspond to BSA = 2.1 Aortic Valve: Vmax 1.3 m/s GOVIND (V) 4.19 cm VTI 0.22 m GOVIND (I) 3.46 cm LVOT V max 1.0 m/s Max PG 7 mmHg LVOT VTI 0.14 m Mean PG 4 mmHg SV 76 ml Dim Index 0.65 SV index 32 ml/m CO 9.3 l/min CI 4.0 l/min/m Tricuspid Valve and estimated PA pressures: TAPSE 1.1 cm Contrast documentation: 2 ml diluted Definity, lot #[id number], [facility]#[id number] was administered peripherally to enhance visualization of allleft ventricular segments. . This study was interpreted by an [facility] accredited facility. Final us Silvana Nichols MD ECHO ORD Fin al Result * (ABNORMAL) ACTIVATED CLOTTING TIME [id number] ACT (02/17/2025 12:57 PM CDT) Only the most recent of4 resultswithin the time period is included. ACTIVATED CLOTTING TIME, POCT 227(H) 74 - 125 sec 02/17/2025 5:25 PM CDT [facility] Blood BLOOD SPECIMEN / Unknown 02/17/2025 12:57 PM CDT 02/17/2025 5:25 PM CDT us Silvana Nichols MD HEMATOLOGY Fin al Result [facility] [address] [place] [address], [place] * CVL CORONARY ANGIOGRAM POSS PCI (02/17/2025 12:01 PM CDT) Anatomical Region Laterality Modality Other 02/17/2025 12:0 1 PM CDT Narrative Procedure Note Bao Cleaning MD - 02/19/2025 7:36 AM CDT DATE OF SERVICE: 02/17/2025 PREOPERATIVE DIAGNOSES: 1. Status post acute [id number] DC, status post 08/31/2024 LAD- LADbifurcation, DK double crush PCI. 2. Balloon dilation of severe in-stent restenosis 6 hours ago. 3. Recurrent chest discomfort. The left main coronary artery is normal. The left anterior descending shows a significant amount of elastic recoilpost balloon dilation. This is especially true in the LAD diagonal branchwhere there is a 90% lesion. The LAD was 70% obstructed. A successfulLAD-LAD diagonal culotte PCI was carried out, followed by kissingballoons. This led to an excellent result. We upsized both the LAD andthe LAD diagonal. There was no apparent elastic recoil. There was excellent flow. There was no complication. The left circumflex is nondominant and no significant disease only minorluminal irregularities. The right coronary artery had tandem 60, 60 and 50% obstructions. Thesewere stented to a good result after iFR determined physiologicsignificance. Successful complex bifurcation, redo stenting of theLAD-LAD diagonal and RCA pci. SUMMARY OF STATEMENTS: 1. Successful LAD-LAD diagonal culotte 2-stent procedure. 2. Right coronary iFR positive, successful right coronary PCI. 3. No complications. 4. Study was considered high risk as the patient's ejection fraction was20%. 5. Levophed and periodic Grant-Synephrine were utilized to support bloodpressure. Results are automatically released to your [employer] accountonce available, in compliance with federal regulations. This means thatyou may see your results before your provider has had a chance to reviewthem. Please allow 2-3 business days for your provider to comment on theresults. MD CAMI PATEL/BRANDON/RENA/MISHEL VJID: [id number] TJID: [id number] us Provider Referring CV IMAGING Final Result * SCAN CORRESP-EKG RESULTS (02/17/2025 11:56 AM CDT) Only the most recent of2 resultswithin the time period is included. Narrative 02/17/2025 11:56 AM CDT Ordered by an unspecified provider. us Other Clinical Staff OTHER Final Resul t * SCAN-CARDIAC STRIP (02/17/2025 8:33 AM CDT) us Scanner OTHER Final Result * PLATELET COUNT (02/17/2025 7:20 AM CDT) PLATELET COUNT 147 140 - 440 thou/cu mm 02/17/2025 7:43 AM CDT [facility] MPV 10.3 6.5 - 11.0 fL 02/17/2025 7:43 AM CDT [facility] Blood BLOOD SPECIMEN / Unknown Venipuncture / Unknown 02/17/2025 7:20 AM CDT 02/17/2025 7:31 AM CDT Narrative [facility] - 02/17/2025 7:43 AM CDT Every morning while on IV heparin. Necessary every morning while on IV heparin. us Adriano Mccann MD HEMATOLOGY Final Re sult [facility] [address] [place] [address], * (ABNORMAL) HEMOGLOBIN (02/17/2025 7:20 AM CDT) HEMOGLOBIN 12.1(L) 13.5 - 17.5 g/dL 02/17/2025 7:43 AM CDT [facility] MCV 89 80 - 100 fL 02/17/2025 7:43 AM CDT [facility] Blood BLOOD SPECIMEN / Unknown Venipuncture / Unknown 02/17/2025 7:20 AM CDT 02/17/2025 7:31 AM CDT Narrative [facility] - 02/17/2025 7:43 AM CDT Every morning while on IV heparin. Necessary every morning while on IV heparin. us Adriano Mccann MD HEMATOLOGY Final Re sult [facility] [address] [place] [address], [place] * SCAN-CARDIAC STRIP (02/17/2025 4:02 AM CDT) us Scanner OTHER Final Result * CVL CORONARY ANGIOGRAM POSS PCI (02/17/2025 2:20 AM CDT) Anatomical Region Laterality Modality Other 02/17/2025 2:20 AM CDT Narrative Transcriptions Chau Salgado MD - 02/17/2025 3:19 AM CDT [facility] Cardiac Catheterization Report Name: DALE LUNA Event Date: 02/17/2025 02:20 Excell[employer] ID #: [id number] [facility] #: [id number] Patient Class: Inpatient Diagnostic Physician: CHAU SALGADO [facility] Interventional Physician: CHAU SALGADO [facility] Referring Physician: Bao Matos MD Primary Care Physician: LAKESHA KHAN Date: 1955 Gender: Male Age: 69 Summary/Conclusions PRESENTATION / INDICATIONS * Emergent * NonSTEMI * s/p Crush PCI 09/05 LAD/D1 bifurcation and RCA VASCULAR ACCESS * Using ultrasound guidance and a percutaneous technique, the right commonfemoral artery was accessed. Ultrasound was used to confirm vesselpatency, localizing needle into the lumen of the vessel. An image wassaved for the medical record. DIAGNOSTIC - CORONARY * Right dominant coronary artery system SPECIAL PROCEDURES * Right femoral arteriotomy was successfully closed utilizing a closuredevice, 6F Angioseal DIAGNOSTIC SUMMARY ? 99% stenosis in the Proximal LAD ? 99% stenosis in the 1st Diagonal (Restenosis - Drug Eluting Stent) ? The RCA is dominant and has restenotic stent(s) from a previousprocedure. ? 60% diffuse stenosis in the Proximal RCA ? 60% in-stent stenosis in the Mid RCA INTERVENTION ? 2.5mm x 15mm Balloon to Proximal LAD, post stenosis 10% ? 2.5mm x 15mm Balloon to 1st Diagonal, post stenosis 20% Kissing PTCA RECOMMENDATIONS & PLAN * Medical Rx - Aspirin: 81 mg daily * Plavix for 1 year - minimum * Optimize risk factors and medications: HDL > 45 ; LDL < 55 ;Triglycerides < 100 * Consider f/u with Dr Nails (CAD clinic) for JANEE (bifurcation andRCA) * Optimize treatment for reduced LV systolic function Consent & [place] Protocol The risks, benefits, and alternatives of the procedure were discussed withthe patient and written informed consent was obtained. [place] protocol was followed. TIME OUT conducted just prior tostarting procedure confirmed patient identity, site/side, procedure,patient position, and availability of correct equipment and implants (ifapplicable). Staff Name Title CHAU SALGADO Diagnostic Environmental Property Assessor Merry Knutson RN Nurse Mitzi Vazquez RN Nurse Abdi Sultana CVT Monitor Ashanti, John RTR Healthcare Recruiter Deborah, Melinda CVT Scrub CHAU SALGADO Fibreglass Gun Hand Procedures ? Ultrasound Guided Vascular Access ? Femoral Angio for Possible Closure Device ? Coronary Angiogram ? PTCA [PCI] ? PTCA Additional Vessel [PCI] ? Femoral Closure Device Diagnostic Findings * Left Anterior Descending ? 99% stenosis in the Proximal LAD. The lesion has a MATIAS flow of 2. ? 99% (restenotic) stenosis in the 1st Diagonal. The lesion has a TIMIflow of 2 and was previously treated with a drug eluting stentprocedure. * Right Coronary Artery ? The RCA is dominant and has restenotic stent(s) from a previousprocedure. ? 60% diffuse stenosis in the Proximal RCA. ? 60% in-stent stenosis in the Mid RCA. Lesion Information Lesion # Vessel Segment Lesion Length Lesion Details 2 1st Diagonal 15 1 Proximal LAD 15 Proximal RCA Mid RCA Hemodynamics State: Baseline Pressures (mmHg) Site Systolic Diastolic End Diastolic A Wave V Wave Mean AO 100 61 58 Interventional Results * Left Anterior Descending ? Intervention to the Proximal LAD 99% lesion with a final stenosis of10% using a 2.5mm x 15mm Balloon. The final MATIAS flow was 3. ? Intervention to the 1st Diagonal 99% lesion with a final stenosis of20% using a 2.5mm x 15mm Balloon. The final MATIAS flow was 3. Interventional Devices Lesion # Vessel Segment Type Name Max Pressure 2 1st Diagonal Balloon BLLN EUPHORA RX [id number] 1 Proximal LAD Balloon BLLN EUPHORA RX [id number] Procedure Details Estimated Blood Loss: < 30 ml Specimen Collected: None Level of Sedation Achieved: Moderate Procedure Start: 02:20 Procedure End: 02:54 Procedure Time: 34 min Fluoroscopy Time: 4.8 min Cumulative Air Kerma: 484 mGy DAP: 2619 uGy/M2 Contrast: Omnipaque (low-osmolar), 50 ml Physiologic Data Weight: 108.9 kg BSA: 2.35 m2 Vascular Access Time Access Sheath Size 02:23 Right Femoral Artery, sheath inserted Medications Ordered and Administered Start Time Stop Time Medication Dose Units Route Ordered By Given By 02:09 Aspirin 325 mg Unknown Chau Salgado Rosette RN 02:16 Fentanyl 25 mcg IV Chau Salgado Rosette RN 02:17 Versed 0.5 mg IV Chau Salgado Rosette RN 02:20 O2 2 l per min Nasal cannula Chau Salgado Rosette RN 02:22 1% Lidocaine 7 ml Subcut Chau Salgado Mario 02:32 Heparin 56349 units IV Chau Salgado Rosette RN 02:32 Plavix 300 mg PO Chau Salgado Rosette RN I personally monitored the patient?s conscious sedation during theprocedure. Conscious sedation starts with the first sedation medication dose ofFentanyl or Versed and ends when the procedure is completed, the patientis stable for recovery status, and the physician or other qualified healthcare professional providing the sedation ends personal czmpsrbmjfteqg-fz-uzab time with the patient. The medications listed above were verbally ordered by me and read back tome as documented above. Refer to the procedure log report for additional case details. electronically signed on 02/17/2025 3:19:18 AM with status of Final Chau Salgado MD [facility] [address] [place] [address] (p) (f) us Provider Referring CV IMAGING Edited Result - Final * (ABNORMAL) CBC w/platelets STAT (02/17/2025 1:03 AM CDT) Only the most recent of2 resultswithin the time period is included. WHITE BLOOD COUNT 8.0 4.5 - 11.0 thou/cu mm 02/17/2025 1:23 AM CDT [facility] RED BLOOD COUNT 4.16(L) 4.30 - 5.90 mil/cu mm 02/17/2025 1:23 AM CDT [facility] HEMOGLOBIN 11.8(L) 13.5 - 17.5 g/dL 02/17/2025 1:23 AM CDT [facility] HEMATOCRIT 36.8(L) 37.0 - 53.0 % 02/17/2025 1:23 AM CDT [facility] MCV 89 80 - 100 fL 02/17/2025 1:23 AM CDT [facility] MCH 28.4 26.0 - 34.0 pg 02/17/2025 1:23 AM CDT [facility] MCHC 32.1 32.0 - 36.0 g/dL 02/17/2025 1:23 AM CDT [facility] RDW 13.3 11.5 - 15.5 % 02/17/2025 1:23 AM CDT [facility] PLATELET COUNT 153 140 - 440 thou/cu mm 02/17/2025 1:23 AM CDT [facility] MPV 10.3 6.5 - 11.0 fL 02/17/2025 1:23 AM CDT [facility] NRBC 0.0 % 02/17/2025 1:23 AM CDT [facility] ABS NRBC 0.0 thou /cu mm 02/17/2025 1:23 AM CDT [facility] Blood BLOOD SPECIMEN / Unknown Venipuncture / Unknown 02/17/2025 1:03 AM CDT 02/17/2025 1:19 AM CDT Adriano Mccann MD HEMATOLOGY Final Re sult Performing Organization Address City/[facility] Co de Phone Number [facility] [address] [place] [address], [place] * (ABNORMAL) INR TODAY (02/17/2025 1:03 AM CDT) INR 1.1 <1.3 02/17/2025 1:30 AM CDT [facility] PROTIME 12.6(H) 10.6 - 12.4 sec 02/17/2025 1:30 AM CDT [facility] Blood BLOOD SPECIMEN / Unknown Venipuncture / Unknown 02/17/2025 1:03 AM CDT 02/17/2025 1:19 AM CDT Narrative [facility] - 02/17/2025 1:30 AM CDT Therapeutic Range 2.0-3.0 for most anticoagulated patients [...] seconds if the patient is on UFH. Adriano Mccann MD HEMATOLOGY Final Re sult Performing Organization Address City/[facility] Co de Phone Number [facility] [address] [place] [address], [place] * APTT (02/17/2025 12:56 AM CDT) APTT 33 25 - 36 sec 02/17/2025 1:33 AM CDT [facility] Blood BLOOD SPECIMEN / Unknown Venipuncture / Unknown 02/17/2025 12:56 AM CDT 02/17/2025 1:20 AM CDT Narrative [facility] - 02/17/2025 1:33 AM CDT Therapeutic Range: 59-89 seconds us Adriano Mccann MD HEMATOLOGY Final Re sult [facility] [address] [place] [address], [place] * SCAN-RADIOLOGY REPORT (02/16/2025 12:00 AM CDT) Anatomical Region Laterality Modality Other us Scanner OTHER Final Result * SDNA-FIT EXTERNAL (COLOGUARD) (02/01/2025 7:30 PM CDT) Only the most recent of2 resultswithin the time period is included. NONINV COLON CA DNA+OCC BLD SCRN STL-IMP Negative Negative 02/05/2025 8:13 AM CDT [facility] (CLIA #:[id number]) Comment: The Cologuard (TM) test was performed [...] screened with both Cologuard and colonoscopy. (Nick Coffey al, N Engl J Med 2014;370(14):1286- 1297) The normal value (reference range) for this assay is negative. COLOGUARD RE-SCREENING RECOMMENDATION: Periodic colorectal cancer screening is an important part of preventive healthcare for asymptomatic individuals at average risk for colorectal cancer. Following a negative Cologuard result, the [place] Cancer Society and U.S. Multi-Society Task Force screening guidelines recommend a Cologuard re-screening interval of 3 years. References: [place] Cancer [employer] Guideline for Colorectal Cancer Screening: https://www.cancer.org/cancer/vcyry-vwmfmt-ymrjbw/gfntmurql-hzzruzcwo-dgglnbh/ac s-rec ommendations.html.; Orville DK, Parul CR, Anayeli BillingsleyK, Colorectal Cancer Screening: Recommendations for Physicians and Patients from the U.S. Multi-Society Task Force on Colorectal Cancer Screening , Am J Gastroenterology 2017; 112:4823-2550. TEST DESCRIPTION: Composite algorithmic analysis of stool [...] screened with both Cologuard and colonoscopy. (Nick Coffey al, N Engl J Med 2014;370(14):4740-7923.) Cologuard may produce a false negative or false positive result (no colorectal cancer or precancerous polyp present at colonoscopy follow up). A negative Cologuard test result does not guarantee the absence of CRC or advanced adenoma (pre-cancer). The current Cologuard screening interval is every 3 years. ([place] Cancer Society and U.S. Multi-Society Task Force). Cologuard performance data in a 10,000 patient pivotal study using colonoscopy as the reference method can be accessed at the following location: www.Sofar Sounds.Sprooki/results. Additional description of the Cologuard test process, warnings and precautions can be found at www.Chomprd.com. Stool specimen (specimen) (Rectum) 02/01/2025 7:30 PM CDT 02/03/2025 11:49 AM CDT us Lakesha Khan MD URINE Final Resul t [facility] (CLIA #:[id number]) [address] [place] [address], * MR SPINE CERVICAL WO (01/29/2025 8:05 [...] C2-3: Shallow disc bulge. Ligamentum flavum thickening. Xiil-kc-pknomdhw left facet arthropathy. Ubhb-jo-lbcsnnhb spinal canal narrowing. No neural foraminal narrowing. [...] advanced facet arthropathy. Mild spinal canal narrowing. Vkgg-az-fonhmiaq bilateral neural foraminal narrowing. Edema right articulating [...] C2-3: Shallow disc bulge. Ligamentum flavum thickening. Uuyf-ya-cwnsyplzenry facet arthropathy. Svne-el-katxwsbb spinal canal narrowing. No neuralforaminal narrowing. C3-4: [...] spurring.Moderately advanced facet arthropathy. Mild spinal canal narrowing.Ntfv-tp-zokzzbik bilateral neural foraminal narrowing. Edema rightarticulating facets. [...] MD @ 01/30/2025 7:24:25 AM (Electronically Signed) us Sancho Madrid MD MR Final Resu lt [...] 12/17/2024 10:28 AM CDT VASCULAR ULTRASOUND REPORT DALE LUNA : 1955 Study Date: 12/17/2024 7:08:08 AM Age: 69 years Tech: BSG Gender: M Referring MD: HERNESTO JOLLY Site: [facility] Study performed: Carotid Indication for Study: [...] Accreditation Commission (IAC/Vascular), www.intersocietal.org/vascular Report generated by [employer]. Final Procedure Note Elkin Leon MD - 12/17/2024 VASCULAR ULTRASOUND REPORT DALE LUNA : 1955 Study Date: 12/17/2024 7:08:08 AM Age: 69 years Tech: BSG Gender: M Referring MD: HERNESTO JOLLY Site: [facility] Study performed: Carotid Indication for Study: [...] theIntersocietal Accreditation Commission (IAC/Vascular),www.intersocietal.org/vascular Report generated by [employer]. Final Hernesto Jolly [facility] Final Result * (ABNORMAL) COMP METABOLIC PANEL (12/15/2024 8:57 AM CDT) Only the most recent of2 resultswithin the time period is included. SODIUM 139 136 - 145 mmol/L 12/15/2024 9:26 AM CDT [facility] POTASSIUM 4.0 3.5 - 5.1 mmol/L 12/15/2024 9:26 AM [facility] CHLORIDE 105 98 - 107 mmol/L 12/15/2024 9:26 AM [facility] CO2,TOTAL 22 22 - 29 mmol/L 12/15/2024 9:26 AM [facility] ANION GAP 12 5 - 18 12/15/2024 9:26 AM [facility] GLUCOSE 281(H) 70 - 99 mg/dL 12/15/2024 9:26 AM [facility] CALCIUM 8.9 8.8 - 10.4 mg/dL 12/15/2024 9:26 AM [facility] Comment: Reference ranges for this test were updated on 06/16/2024 to reflect our healthy population more accurately. Reference range changes are not retroactively applied to results, but previous results using the same methodology can be interpreted in the context of the new reference range. BUN 28(H) 8 - 23 mg/dL 12/15/2024 9:26 AM [facility] CREATININE 1.27(H) 0.70 - 1.20 mg/dL 12/15/2024 9:26 AM [facility] BUN/CREAT RATIO 22(H) 10 - 20 9:26 AM [facility] eGFR 62(L) >90 mL/min/1. 73m2 12/15/2024 9:26 AM [facility] Comment:As of 2021, eG FR is calculated by the CKD-EPI creatinine equation without race adjustment. eGFR can be influenced by muscle mass, exercise, and diet. The reported eGFR is an estimation only and is only applicable if the renal function is stable. ALBUMIN 4.2 4.0 - 4.9 g/dL 12/15/2024 9:26 AM [facility] PROTEIN,TOTAL 7.2 6.0 - 8.0 g/dL 12/15/2024 9:26 AM [facility] BILIRUBIN,TOTAL 1.0 0.0 - 1.2 mg/dL 12/15/2024 9:26 AM [facility] ALK PHOSPHATASE 41 40 - 129 IU/L 12/15/2024 9:26 AM CDT [facility] ALT (SGPT) 19 10 - 50 IU/L 12/15/2024 9:26 AM CDT [facility] AST (SGOT) 21 10 - 50 IU/L 12/15/2024 9:26 AM CDT [facility] Blood BLOOD SPECIMEN / Unknown Butterfly / Unknown 12/15/2024 8:57 AM CDT 12/15/2024 8:57 AM CDT Hernesto Jolly [facility] CHEMISTRY Final Result [facility] [address] [place] [address] * SCAN-CARDIAC STRIP (12/10/2024 10:09 AM CDT) Scanner OTHER Final Result * SODIUM (12/10/2024 6:45 AM CDT) SODIUM 138 136 - 145 mmol/L 12/10/2024 7:27 AM CDT [facility] Blood BLOOD SPECIMEN / Unknown Butterfly / Unknown 12/10/2024 6:45 AM CDT 12/10/2024 6:57 AM CDT Bharti Palma MD CHEMISTRY Final R esult [facility] [address] [place] [address], * POTASSIUM (12/10/2024 6:45 AM CDT) POTASSIUM 4.5 3.5 - 5.1 mmol/L 12/10/2024 7:27 AM CDT [facility] Blood BLOOD SPECIMEN / Unknown Butterfly / Unknown 12/10/2024 6:45 AM CDT 12/10/2024 6:57 AM CDT Bharti Palma MD CHEMISTRY Final R esult Performing Organization Address [facility] Co de Phone Number [facility] [address] [address], * (ABNORMAL) CREATININE (12/10/2024 6:45 AM CDT) eGFR 79(L) >90 mL/min/1.7 3m2 12/10/2024 7:27 AM CDT [facility] Comment:As of 2021, eG FR is calculated by the CKD-EPI creatinine equation without race adjustment. eGFR can be influenced by muscle mass, exercise, and diet. The reported eGFR is an estimation only and is only applicable if the renal function is stable. CREATININE 1.03 0.70 - 1.20 mg/dL 12/10/2024 7:27 AM CDT [facility] Blood BLOOD SPECIMEN / Unknown Butterfly / Unknown 12/10/2024 6:45 AM CDT 12/10/2024 6:57 AM CDT us Bharti Palma MD CHEMISTRY Final R esult Performing Organization Address [facility] Co de Phone Number [facility] [address] [place] [address], [place] * SCAN-CARDIAC STRIP (12/10/2024 5:18 AM CDT) us Scanner OTHER Final Result * SCAN-CARDIAC STRIP (12/09/2024 10:15 PM CDT) us Scanner OTHER Final Result * ALT (SGPT) (12/09/2024 4:05 PM CDT) ALT (SGPT) 22 10 - 50 IU/L 12/09/2024 4:36 PM CDT [facility] Blood BLOOD SPECIMEN / Unknown Non-Lab Venipuncture / Unknown 12/09/2024 4:05 PM CDT 12/09/2024 4:11 PM CDT Josef Ramirez MD CHEMISTRY Final R esult Performing Organization Address City/[facility]/ZIP Co de Phone Number [facility] [address] [address], [place] * AST (SGOT) (12/09/2024 4:05 PM CDT) AST (SGOT) 21 10 - 50 IU/L 12/09/2024 4:36 PM CDT [facility] Blood BLOOD SPECIMEN / Unknown Non-Lab Venipuncture / Unknown 12/09/2024 4:05 PM CDT 12/09/2024 4:11 PM CDT Josef Ramirez MD CHEMISTRY Final R esult Performing Organization Address [facility] Co de Phone Number [facility] [address] [address], [place] * EXTRA TUBE GOLD/SST (12/09/2024 4:02 PM CDT) Blood BLOOD SPECIMEN / Unknown Non-Lab Venipuncture / Unknown 12/09/2024 4:02 PM CDT 12/09/2024 4:12 PM CDT Almita Rodriguez MD LABORATORY Final Result Performing Organization Address [facility]/ZIP Co de Phone Number [facility] [address] [address], [place] * ELECTRONIC ANALYSIS ILR SYSTEM (12/09/2024 [...] N.P. Consulting EP: Dr Leyva DEVICE DATA Grip Boss: Medtronic Model: [id number] Serial #: [id number] Implant Date: 08/14/2023 HOME MONITOR Grip Boss: Medtronic Model: [employer]Link Relay [id number] Serial #: Location of evaluation: [facility] [...] days Shalonda Jon RN Nurse Clinician II [facility] Pacemaker/ICD Clinic [phone] us Dank Cotton MD CARDIAC SERVICES ORD [...] MD @ 12/09/2024 1:31:49 PM (Electronically Signed) us Josef Ramirez MD GENERAL IMAGING Final R esult * (ABNORMAL) LIPID PANEL (08/02/2024 8:07 PM PROJECT MANAGEMENT MANAGER) Pathologist [facility] CHOLESTEROL,TOTAL 95(L) 100 - 199 mg/dL 08/03/2024 3:14 PM PROJECT MANAGEMENT MANAGER [facility] [employer] [facility] Comment: Cholesterol, Total Reference Ranges Desirable <200 mg/dL Borderline 200-239 mg/dL High >=240 mg/dL TRIGLYCERIDES 95 <150 mg/dL 08/03/2024 3:14 PM PROJECT MANAGEMENT MANAGER [facility] HDL CHOLESTEROL 44 >40 mg/dL 3:14 PM PROJECT MANAGEMENT MANAGER [facility] NON-HDL CHOLESTEROL 51 <145 mg/dl 08/03/2024 3:14 PM PROJECT MANAGEMENT MANAGER [facility] CHOL/HDL RATIO 2.16 <4.50 08/03/2024 3:14 PM PROJECT MANAGEMENT MANAGER [facility] LDL CHOLESTEROL 32 <=130 mg/dL 08/03/2024 3:14 PM PROJECT MANAGEMENT MANAGER [facility] VLDL CHOLESTEROL 19 <=30 mg/dL 08/03/20 3:14 PM PROJECT MANAGEMENT MANAGER [facility] Blood BLOOD SPECIMEN / Unknown Venipuncture / Unknown 08/02/2024 8:07 PM PROJECT MANAGEMENT MANAGER 08/02/2024 8:13 PM PROJECT MANAGEMENT MANAGER us Allie Soriano BONE COOKING OPERATOR CHEMISTRY Fin al Result [facility] [address] [place] [address], [place] * ANTI HCV (04/16/2017 9:14 AM CDT) HEPATITIS C ANTIBODY Non-Reacti ve Non-Reacti ve 04/16/2017 3:42 PM CDT [facility] Blood BLOOD SPECIMEN / Unknown Venipuncture / Unknown 04/16/2017 9:14 AM CDT 04/16/2017 9:17 AM CDT Narrative [facility] - 04/16/2017 3:42 PM CDT Antibodies to HCV not detected; does not exclude the possibility of exposure to HCV. us Jakub Soliz MD SEND OUTS Final Result [facility] [address] [place] [address], [place] from Last 3 Months or Most Recently Relevant to Health Maintenance [id number] PART A HB ONLY [facility] CBCS NON [facility] MR Advance Directives * Full Code (Latest Code Status on File) Date Activated Date Inactivated Comments 02/17/2025 12:25 AM 02/21/2025 3:07 PM Question Answer Comments Code Status Discussion: Reviewed Preferences * Full Code Date Activated Date Inactivated Comments 12/09/2024 4:27 [...] to Assess Preferences, Provider to review later Care Teams Executive Steward Relationship Specialty Start Date End Date Lakesha Khan MD [address] [place] [address] PCP - General Family Practice 04/30/22 [facility] [place] [address] [address] 08/15/24 Nurses, Advanced Heart Failure [address], [place] [address] Advanced Heart Failure/Transplant Card 12/18/24 Hernesto Jolly [facility] [address] [place] [address] Cardiology - CHF Advanced Heart Failure/Transplant Card 12/18/24
--- OUTSIDE RECORDS SUMMARY | 2025-02-27 12:29 | XMS_ITS | Data Portability ---
Author Organization [place] - [facility] Address [address] [facility] [place] [address] Care Team Providers Care Card Hand Name Role Phone DOMENIC COFFMAN Primary Care [...] philu s parai nflue nzae Not Available [facility] Outpatient - [address] [place], [place], [address], 11/28/2019 14:15:22 11/24/19 20 11/24/2019 anaer obic/ aerob ic cultu re/gr am stain cefinase Negati ve Not Available [facility] Lab Outpatient - [place] [address] [place], [address], 11/28/2019 14:15:22 11/24/19 20 11/24/2019 anaer obic/ aerob ic cultu re/gr am stain gram stain result 3+ Polym orpho nucle ar leuko cytes 1+ Gram negat shiloh bacil li Not Available [facility] Lab [address] [place]cos, [place], [address], 11/28/2019 14:15:22 11/24/19 20 11/24/2019 anaer obic/ aerob ic cultu re/gr am stain culture 240 2+ Haemo philu s parai nflue nzae Not Available [facility] Lab [address] [place]cos, [place], [address], 11/27/2019 13:54:58 11/24/19 20 11/24/2019 anaer obic/ aerob ic cultu re/gr am stain cefinase Negati ve Not Available [place] [address] [address] [place], [place], [address], 11/27/2019 13:54:58 11/24/19 20 11/24/2019 anaer obic/ aerob ic cultu re/gr am stain gram stain result 3+ Polym orpho nucle ar leuko cytes 1+ Gram negat shiloh bacil li Not Available [place] [address] [address] Mracos, [place], [address], 11/27/2019 13:54:58 11/24/19 20 11/24/2019 anaer obic/ aerob ic cultu re/gr am stain culture 819 2+ Gram Negat shiloh Khoi Not Available [facility] Lab [place] [address] [address], [place], [address], 11/26/2019 14:01:18 11/24/19 20 11/24/2019 anaer obic/ aerob ic cultu re/gr am stain gram stain result 3+ Polym orpho nucle ar leuko cytes 1+ Gram negat shiloh bacil li Not Available [facility] [place] [address] [address] [place], [place], [address], 11/26/2019 14:01:18 01/07/20 20 01/07/2020 CBC w/ auto diff white blood cell count 4.71 10*3/ uL 4.00-1 0.80 Not Available [facility] [address] [place], [place], [address], 01/07/2020 21:05:58 01/07/20 20 01/07/2020 CBC w/ auto diff red blood cell count 3.33 10*6/ uL 4.30-5 .60 low Not Available [facility] Outpatient [address] [place], [place], [address], 01/07/2020 21:05:58 01/07/20 20 01/07/2020 CBC w/ auto diff hemoglobin 8.1 g/dL 13.0-1 6.8 low Not Available [facility] [address] [place], [place], [address], 01/07/2020 21:05:58 01/07/20 20 01/07/2020 CBC w/ auto diff hematocrit 25.3 % 37.0-4 9.0 low Not Available [facility] [address] [place], [place], [address], 01/07/2020 21:05:58 01/07/20 20 01/07/2020 CBC w/ auto diff MCV - mean corpuscular volume 76 fL 78.0-9 8.0 low Not Available [facility] [address] [place], [place], [address], 01/07/2020 21:05:58 01/07/20 20 01/07/2020 CBC w/ auto diff MCH - mean corpuscular hemoglobin 24.3 pg 25.0-3 5.0 low Not Available [facility] [address] [place], [place], [address], 01/07/2020 21:05:58 01/07/20 20 01/07/2020 CBC w/ auto diff MCHC - mean corpuscular hemoglobin conc 32.0 g/dL 32.0-3 6.0 Not Available [facility] [address] [place], [place], [address], 01/07/2020 21:05:58 01/07/20 20 01/07/2020 CBC w/ auto diff red cell distribution width 16.4 % 11.5-1 4.5 high Not Available [facility] [place] [address] [address] [place], [place], [address], 01/07/2020 21:05:58 01/07/20 20 01/07/2020 CBC w/ auto diff platelet count 201 10*3/ uL 130-40 0 Not Available [facility] [place] [address] [address], [place], [address], 01/07/2020 21:05:58 01/07/20 20 01/07/2020 CBC w/ auto diff automated NRBC (percent) 0.0 % <1.0 Not Available [facility] [place] [address] [place], [place], [address], 01/07/2020 21:05:58 01/07/20 20 01/07/2020 CBC w/ auto diff automated NRBC (absolute) 0.00 10*3/ uL <=0.10 Not Available [facility] [place] [address] [place], [place], [address], 01/07/2020 21:05:58 01/07/20 20 01/07/2020 CBC w/ auto diff neutrophils relative percent 49.5 % 42.5-7 4.6 Not Available [facility] [address] [place], [place], [address], 01/07/2020 21:05:58 01/07/20 20 01/07/2020 CBC w/ auto diff lymphocytes relative percent 32.5 % 16.8-4 4.9 Not Available [facility] [address] [place], [place], [address], 01/07/2020 21:05:58 01/07/20 20 01/07/2020 CBC w/ auto diff monocytes relative percent 8.7 % 3.6-11 .7 Not Available [facility] [address] [place], [place], [address], 01/07/2020 21:05:58 01/07/20 20 01/07/2020 CBC w/ auto diff eosinophils relative percent 8.7 % 0.0-5. 0 high Not Available [facility] [place] [address] [place], [place], [address], 01/07/2020 21:05:58 01/07/20 20 01/07/2020 CBC w/ auto diff basophils relative percent 0.2 % 0.0-2. 0 Not Available [facility] [place] [address] [place], [place], [address], 01/07/2020 21:05:58 01/07/20 20 01/07/2020 CBC w/ auto diff neutrophils absolute count 2.330 10*3/ uL 1.900- 8.000 Not Available [facility] [place] [address] [place], [address], 01/07/2020 21:05:58 01/07/20 20 01/07/2020 CBC w/ auto diff lymphocytes absolute count 1.530 10*3/ uL 0.900- 4.000 Not Available [facility] [address] [place], [place], [address], 01/07/2020 21:05:58 01/07/20 20 01/07/2020 CBC w/ auto diff monocytes absolute count 0.410 10*3/ uL 0.200- 1.000 Not Available [facility] [address] [place], [address], 01/07/2020 21:05:58 01/07/20 20 01/07/2020 CBC w/ auto diff eosinophils absolute count 0.410 10*3/ uL 0.000- 0.800 Not Available [facility] [place] [address] [place], [address], 01/07/2020 21:05:58 01/07/20 20 01/07/2020 CBC w/ auto diff basophils absolute count 0.010 10*3/ uL 0.000- 0.100 Not Available [facility] [place] [address] [place], [address], 01/07/2020 21:05:58 01/07/20 20 01/07/2020 CBC w/ auto diff immature granulocytes (Ig) 0.4 % <1.0 Not Available [facility] [place] [address] [place], [address], 01/07/2020 21:05:58 01/07/20 20 01/07/2020 CBC w/ auto diff immature granulocytes abs 0.02 10*3 <=0.10 Not Available [facility] [place] [address] [place], [address], 01/07/2020 21:05:58 01/07/20 20 01/07/2020 trigl yceri zhou triglyceride s 77 mg/dL <150 Not Available [facility] [place] [address] [address], [place], [address], 01/07/2020 21:29:27 01/07/20 20 01/07/2020 magne sium magnesium 1.7 mg/dL 1.6-2. 3 Not Available [facility] [place] [address] [place], [place], [address], 01/07/2020 21:29:29 01/07/20 20 01/07/2020 lacta te dehyd rogen ase lactate dehydrogenas e 112 U/L 120-24 6 low Not Available [facility] [address] [place], [place], [address], 01/07/2020 21:29:37 01/07/20 20 01/07/2020 gamma -glut amyl trans feras e (ggt) , serum gamma glutamyl transferase 67 U/L 15-73 Not Available [facility] [place] [address] [place], [place], [address], 01/07/2020 21:29:38 01/07/20 20 01/07/2020 CMP, serum or plasm a sodium 133 mmol/ L 137-14 5 low Not Available [facility] [place] [address] [address] [place], [place], [address], 01/07/2020 21:29:48 01/07/20 20 01/07/2020 CMP, serum or plasm a potassium 4.0 mmol/ L 3.5-5. 1 Not Available [facility] [place] [address] [place], [address], 01/07/2020 21:29:48 01/07/20 20 01/07/2020 CMP, serum or plasm a chloride 100 mmol/ L 98-107 Not Available [facility] [address] [place], [place], [address], 01/07/2020 21:29:48 01/07/20 20 01/07/2020 CMP, serum or plasm a bicarbonate 25.0 mmol/ L 22.0-3 0.0 Not Available [facility] [address] [place], [place], [address], 01/07/2020 21:29:48 01/07/20 20 01/07/2020 CMP, serum or plasm a glucose 228 mg/dL 74-99 high Not Available [facility] [address] [place], [place], [address], 01/07/2020 21:29:48 01/07/20 20 01/07/2020 CMP, serum or plasm a blood urea nitrogen 32.0 mg/dL 9.0-20 .0 high Not Available [facility] [place] [address] [address], [place], [address], 01/07/2020 21:29:48 01/07/20 20 01/07/2020 CMP, serum or plasm a creatinine 0.72 mg/dL 0.66-1 .25 Not Available [facility] [address] [place], [place], [address], 01/07/2020 21:29:48 01/07/20 20 01/07/2020 CMP, serum or plasm a BUN / creat ratio 44.4 6.0-30 .0 high Not Available [facility] [place] [address] [address], [place], [address], 01/07/2020 21:29:48 01/07/20 20 01/07/2020 CMP, serum [...] . Not Available [facility] Outpatient - [address] [place], [place], [address], 01/07/2020 21:29:48 01/07/20 20 01/07/2020 CMP, serum or plasm a calcium 8.2 mg/dL 8.4-10 .2 low Not Available [facility] Outpatient - [place] [address] [place], [address], 01/07/2020 21:29:48 01/07/20 20 01/07/2020 CMP, serum or plasm a adjusted calcium 9.0 mg/dL 8.4-10 .2 Begin esther 6, Adjus mitzi Calci um is calcu lated using formu la from [facility] bing Diagn osis and Manag ement by Fei rapp Not Available [facility] Outpatient - [place] [address] [place], [address], 01/07/2020 21:29:48 01/07/20 20 01/07/2020 CMP, serum or plasm a protein total 7.0 g/dL 6.3-8. 2 Not Available [facility] Outpatient - [place] [address] [place], [address], 01/07/2020 21:29:48 01/07/20 20 01/07/2020 CMP, serum or plasm a albumin 3.1 g/dL 3.5-5. 0 low Not Available [facility] Outpatient - [place] [address] [place], [address], 01/07/2020 21:29:48 01/07/20 20 01/07/2020 CMP, serum or plasm a globulin 3.9 g/dL 2.3-3. 5 high Not Available [facility] [address] [place], [address], 01/07/2020 21:29:48 01/07/20 20 01/07/2020 CMP, serum or plasm a A/G ratio 0.8 1.0-2. 0 low Not Available [facility] [place] [address] [place], [address], 01/07/2020 21:29:48 01/07/20 20 01/07/2020 CMP, serum or plasm a AST (SGOT) 37 U/L 17-59 Not Available [facility] [address] [place], [address], 01/07/2020 21:29:48 01/07/20 20 01/07/2020 CMP, serum or plasm a ALT (SGPT) 46 U/L <50 Not Available [facility] [address] [place], [address], 01/07/2020 21:29:48 01/07/20 20 01/07/2020 CMP, serum or plasm a alkaline phosphatase 49 U/L 38-126 Not Available [facility] [place] [address] [place], [address], 01/07/2020 21:29:48 01/07/20 20 01/07/2020 CMP, serum or plasm a bilirubin total 0.2 mg/dL 0.2-1. 3 Not Available [facility] [place] [address] [place], [address], 01/07/2020 21:29:48 01/07/20 20 01/07/2020 CMP, serum or plasm a anion gap 8 mmol/ L 8-16 Not Available [facility] - [address], [place], [address], 01/07/2020 21:29:48 01/07/20 20 01/07/2020 preal bumin , serum prealbumin 12 mg/dL 10-40 Not Available [facility] ab Outpatient - [address] [place], [place], [address], 01/08/2020 02:56:35 Result Notes None recorded. Problems Name Problem SNOMED Code Status Onset Date Resolution Date Notes Provider Name and Address Organization Details Recorded Time Diabetes mellitus 38500213 Active 2018 Jaz Pennington - [facility] null, [place] - [place] [facility] 9 17:28:10 Hyperlipid emia 64934247 Active 2018 Jaz Pennington - [facility] [place], [place] - [place] [facility] 9 17:28:21 Hypertensi ve disorder 51193980 Active 2018 Paula Ewing - [facility] null, [place] - [place] [facility] 9 12:51:34 Duodenal anastomoti c leak 944603688 Active 201910/27/2019 [facility] Bi Pennington - [facility] [place], [place] - [place] [facility] 0 18:40:41 Acute stress disorder 20574655 Active 201910/27/2019 [facility] Bi Pennington - [facility] [place], [place] - [place] [facility] 0 18:40:41 Abscess 346919392 Active 2019 2 drains, [facility], 12/19/2019, Dr. Navarro ; RLQ, drain in place, [facility], 11/27/2019, Dr. Maritza cintron, RN [address] [facility], [place], [address], [place] - [place] [facility] 0 13:05:20 Problem Notes None recorded. Procedures Surgical History Date Name Laterality Status Provider Name and Address Organization Details Recorded Time 020 percutaneous drainage of retroperitoneal abscess completed Dianne Coombs RN [address], [place], [address], [place] [facility] 12/21/2019 13:04:21 020 Laparo partial colectomy completed Jaimie Swearinger - [facility] [place] [facility] 09/14/2019 11:01:53 019 Colonoscopy Bom[place] completed Luis Salas MD [address], [place], [address], [facility] [place] [facility] 07/13/2019 13:13:19 019 Diagnostic colonoscopy completed Jaimie Swearinger - [facility] [place] [facility] 09/14/2019 11:03:21 019 amputation of toe completed Jessica DE DIOS [address] [facility] [place], [address], [place] [facility] 06/05/2019 14:54:23 009 Angioplasty completed Domenic Coffman MD [address], [place], [address], [place] [facility] 06/10/2019 18:04:07 Gallbladder Surgery completed Jaz Pennington - [facility] [place] [facility] 06/10/2019 17:30:28 Appendectomy completed Jaz Benjie r - [facility] [place] [facility] 06/10/2019 17:30:34 Neck Surgery completed Jaz Fishe r - [facility] [place] - [place] [facility] 06/10/2019 17:30:59 Imaging Results None recorded. Procedure Notes None recorded. Medical Equipment None Reported. Allergies Allergen ID Allergen Name Allergen Category Reaction Reaction Severity Criticality Documentation Date Start Date Code Code System Note Provider Name and Address Organization Details Recorded Time 722280 acetamino phen / oxycodone medicatio n Not available Not available Not available 06/05/2019 46176 3 RxNorm Neydanic MELÉNDEZ null, [place] - [facility] 9 11:16:29 835540 Darvocet- N medicatio n Not available Not available Not available 06/05/2019 34772 PRITIChucky Neyda MELÉNDEZ null, [place] - [facility] 9 11:16:38 Medications Name Sig Start Date [...] at bedtime as needed 11/26 completed 10/27/19 IDASCENCION alvares MD Not Available Not Available Not [...] eight hours as needed. 01/[address] [facility] Bi alvares MD Not Available Not Available Not Available amoxicill in 875 mg-potass ium clavulana te 125 mg tablet Take 1 tablet every 12 hours by oral route for 4 days. 01/[address] [facility], 12/19/2019 , Dr. Marce alvares Not Available Not Available Not Available simethico ne 80 mg chewable tablet Chew and swallow 1 tablet three times daily as needed for bloating active 10/27/19 [facility] Bi alvares MD Not Available Not Available Not Available oxycodone 5 mg tablet TAKE 1-2 TABLETS (5-10 MG) BY ORAL ROUTE EVERY 6 HOURS NEEDED FOR SEVERE PAIN active [facility] Imani Alejandro MD - 0 Not Available Not Available Not Available insulin lispro (U-100) 100 unit/mL subcutane ous pen Inject 0-10 Units under the skin (SUBC) three times daily before meals. Humalog 1:15 carb coverage for meals 02/06 completed changed to vials, [facility], 0, Dr. Marce alvares; [facility], 12/19/2019 , Dr. Marce alvares Not Available Not Available Not Available Novolog FlexPen U-100 Insulin aspart 100 unit/mL (3 mL) subcutane ous inj 7 units per meal 10/28 completed 10/27/[address] [facility] Bi alvares MD Not Available Not Available Not Available duloxetin e 30 mg capsule,d elayed release Take 30 mg every day by oral route at bedtime. 2019 active 10/27/19 [facility] Bi alvares MD Not Available Not Available Not Available Aspir-81 10/28 completed 10/27/19 [facility] Bi alvares MD Not Available Not Available Not Available metformin Take 1000 twice daily 10/28 completed Not Available Not Available Not Available TPN Electroly mayda TPN for 12 hours from midnight to noon active per pt Not Available Not Available No t Available Nacl inject 10 ml into the vein IV as neeed per [facility] home infusion per procedur ePlease flush central line with 5-10 ml of saline from syringe twice daily active [facility] Imani Alejandro MD - 0 Not Available Not Available Not Available Novolog FlexPen U-100 Insulin Take 7 units per meal 07/13 completed Not Available Not Available Not Available Lantus Solostar U-100 Insulin 100 unit/mL (3 mL) subcutane ous pen Inject 8 Units under the skin (SUBC) once daily in the evening 02/06 completed changed to vials, [facility], 0, Dr. Marce alvares; [facility] 01/18/20 Not Available Not Available Not Available Lantus Solostar U-100 Insulin Take 35 units before bed 08/11 completed Not Available Not Available Not Available Heparin Lock Flush (Porcine) (PF) 10 unit/mL intraveno us syringe As needed 12/20 completed 12/19/19, [facility], Dr. Marce alvares; 10/27/19 [facility] Bi alvares MD Not Available Not Available Not Available Vitals None Recorded Social History Question Answer Notes LastModified by Organizat ion Details LastModified Time Tobacco Smoking Status Never Smoker Jaz Pennington - [facility], [place] - [place] [facility] 06/10/2019 17:28:49 What Is Your Level Of Caffeine Consumption? Moderate [email or web address] Information not available 06/10/2019 How Much Tobacco Do You Chew? None [email or web address] Information not available 06/10/2019 In The 14 Days Before Symptom Onset, Have You Had Close Contact With A Laboratory-confirm ed COVID-19 While That Case Was Ill? No Information n ot available 11/03/2019 In The 14 Days Before Symptom Onset, Have You Had Close Contact With A Person Who Is Under Investigation For COVID-19 While That Person Was Ill? No [email or web address] Information not available 11/03/2019 Have You Been To An Area Known To Be High Risk For COVID-19? No Information not available 11/03/2019 What Type Of Diet Are You Following? DIABETIC [email or web address] Information n ot available 06/10/2019 Which Illicit Or Recreational Drugs Have You Used? 0 [email or web address] Information not available 06/10/2019 Education 12 [email or web address] Information no t available 06/10/2019 Are There Any Guns Present In Your Home? Yes [email or web address] Information not available 06/10/2019 Hard Of Hearing Or Deaf In One Or Both Ears? No [email or web address] Information not available 06/10/2019 Legally Blind In One Or Both Eyes? No [email or web address] Information no t available 06/10/2019 Live Alone Or With Others? With Others [email or web address] Information not available 06/10/2019 In The Past Year, Have You Had 5 Or More Drinks In A Day? No [email or web address] Information not available 06/10/2019 In The Past Year, Have You Had 4 Or More Drinks In A Day? No [email or web address] Information not available 06/10/2019 In The Past Year, Have You Used A Recreational Drug Or Used A Prescription Medication For Non-medical Reasons? No [email or web address] Information not available 06/10/2019 Is It Difficult For You To Pay For The Very Basics (i.e. Food, Housing, Medical Care, Heating, Transportation)? 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 No [email or web address] Information not available 06/10/2019 How Many Children Do You Have? 0 [email or web address] Information not available 06/10/2019 Seat Belts Used Routinely Yes [email or web address] Information not available 06/10/2019 Are You Sexually Active? Yes [email or web address] Information not available 06/10/2019 Smoke Alarm In Home Yes [email or web address] Information not available 06/10/2019 How Much Tobacco Do You Smoke? No Information not available 06/10/2019 Sex: Unknown Functional Status Question Answer Note LastModified by Organizat ion Details LastModified Time What is your level of alcohol consumption? Occasional [email or web address] Information not available 06/10/2019 Do you or have you ever used smokeless tobacco? Never used smokeless tobacco [email or web address] Information not available 06/10/2019 Are you currently employed? No Information not available 06/10/2019 Are you able to care for yourself? Yes Information not available 06/10/2019 Do you or have you ever used e-cigarettes or vape? Never used electronic cigarettes [email or web address] Information not available 06/10/2019 What is your exercise level? Moderate [email or web address] Information not available 06/10/2019 Mental Status None [...] quadrivalent, preservative 9 completed Jaz Pennington - [facility] [place] story - [place] [facility] 06/10/2019 17:36:09 Past Encounters Encounter ID Performer Location Encounter Start Date Encounter Closed Date Diagnosis/Indication Diagnosis SNOMED-CT Code Diagnosis ICD10 Code Diagnosis Note [id number] [facility] [address] [place] [address] 06/05/2019 11:02:33 06/05/2019 14:56:40 Blister of toe without infection 28842686 S90.425A [id number] Domenic Coffman MD [facility] [place] [address] [place] [address] 06/10/2019 16:59:20 06/12/2019 13:25:28 Diabetes mellitus 79165690 E11.9 New patient who is type 2 [...] months with me. And we offered him staff development educator and the dietitian. Hyperlipidemia 99425025 E78.5 Diabetic p eripheral neuropathy 435290627 E11.40 Recommend the patient see the [facility] just to make sure that he is doing well with his diabetes exam today is actually really good he is missing toes on his foot but otherwise the blisters are clean and no evidence of cellulitis Blister of toe without infection 66653558 S90.425A [id number] Anthony Zamarripa DPM Podiatry_ [place] [address] [place] [address] 06/16/2019 15:59:55 06/17/2019 15:01:14 Blister 771147638 R23.8 Hammer toe 126202956 M20 .42 Disorder o f nervous system due to type 2 diabetes mellitus 714119900 E11.42 [id number] Cornell Salas MD [facility] [address] [place] [address] 07/13/2019 10:45:15 07/13/2019 13:14:56 Screening for malignant neoplasm of colon 591750667 Z12.11 Polyp of colon 28376366 K63.5 [id number] Isa Heart MD [facility] ed[facility] [address] [place] [address] 07/31/2019 14:26:19 07/31/2019 16:52:01 [id number] Jared Cisneros, [facility] [address] [place] [address] 07/31/2019 18:02:29 08/02/2019 12:55:34 Infection of toe 104040852 L08.9 patient presenting with appearance of infection [...] ing and agreement with treatment plan Tachycardia 1410418 R00. 0 Patient noted to be tachycardi [...] underwent a cardiac stress test earlier today [id number] Anthony Zamarripa DPM Podiat[facility]_ [place] [address] [place] , [place] [address] 08/04/2019 12:47:49 08/10/2019 13:53:55 Acquired hammer toe of left foot 4555719087 397066 M20.42 Blister of toe without infection 98953393 S90.425A Peripheral neuropathy due to type 2 diabetes mellitus 1470736383 107 E11.42 [id number] Cornell Salas MD Surgery_A [place]_3rd [address] [facility] [place] [address] 08/11/2019 10:59:45 08/11/2019 12:07:43 Polyp of colon 83413704 K63.5 [id number] Anthony Zmaarripa DPM Podiatry_ [place]_1s t [address] [facility] [place] [address] 08/25/2019 11:52:26 08/26/2019 14:41:59 Blister of toe without infection 72776712 S90.425A Hammer toe 231724944 M20 .42 Disorder o f nervous system due to type 2 diabetes mellitus 150727070 E11.42 [id number] Nataliia Maldonado RN Care_Coor dination [address] [facility] [place] [address] 10/29/2019 21:01:51 10/29/2019 21:45:53 [id number] Domenic Coffman MD FamilyPra ctice_Asb [place]_2nd [address] [facility] [place] [address] 11/03/2019 18:35:14 11/04/2019 14:36:45 Diabetes mellitus 79820078 E11.9 Patient was advised to get a hemoglobin A1c. She is encouraged on continued to manage blood sugars. Advanced activities as he can tolerate work up slowly to hour a day. Hyperlipidemia 08405286 E78.5 Hypertensive disorder 38 026243 I10 Duodenal a nastomotic leak 754796583 K31.89 Patient is to stay nothing by [...] repeat be repaired the end of November. [id number] Dianne borrero RN Care_Coor dination [address] [facility] [place] [address] 11/27/2019 10:59:48 11/27/2019 19:26:15 [id number] Dianne borrero RN Care_Coor dination [address] [facility] [place] [address] 12/21/2019 12:57:12 12/21/2019 13:25:56 [id number] Zofia Taylor RN Care_Coor dination [address] [facility] [place] [address] 01/06/2020 14:33:16 01/06/2020 18:07:55 [id number] Marilee Roman RN, [facility] Care_Coor dination [address] [facility] [place] [address] 01/19/2020 15:13:40 01/19/2020 20:20:28 [id number] Dianne borrero RN Care_Coor dination [address] [facility] [place] [address] 02/08/2020 16:26:08 02/08/2020 16:51:01 [id number] Zofia Taylor RN Care_Coor dination [address] [facility] [place] [address] 02/22/2020 14:34:10 02/22/2020 21:34:41 Health Concerns Section Related Observation LastModified by Organization Detai ls LastModified Time None Recorded Concern Status LastModified by Organization Details LastModified Time None Recorded Advance Directives Directive None Recorded Payers Insurance Date Sequence Insurance Name Policy Number Policy Landa Covered Member ID Landa Member ID Guarantor Name 08/13/[address] [facility] [id number] Dale Luna [id number] Dale Luna 08/25/2019 1 [facility] [id number] Dale Luna [id number] Dale Luna 08/13/[address] [facility] (PPO) Dale Luna [id number] Dale Luna 01/20/2020 1 [facility] [id number] Bharti Luna [id number] Dale Luna 02/22/2020 [facility] [id number] Dale Luna [id number] Dale Luna 02/22/2020 1 [facility] (POS) [id number] Dale Luna [id number] Dale Luna 01/20/2020 1 [facility] [id number] Dale Luna [id number] Dale Luna Notes Date Note Type Note Provider Name and Address Organization Details Recorded Time 12/21/2019 text/html Hospitalization Contact RecordReported bypatient.Follow UpHospital: [facility]; date of admit: (12/14/2019); date of discharge: (12/19/2019); date of contact: (12/21/2019) Patient contacted within 2 days of Hospital DC. You may use Transitional Care Management CPT code 22761/93301 for this visit. Please note, patient may need prescriptions for new medications started upon discharge. DC summary faxed to [facility] chart. Problem list reconciled from hospital problem [...] under control. Hospital Summary: Pt trans to [facility] for repeat percutaneous drain placement for retroperitoneal [...] enough with reduced insulin dose., declined HFU. iDanne Coombs RN Dianne Coombs, RN [address] [place], [address], [facility] - [facility] 12/21/2019 13:25:54 01/06/2020 text/html Hospitalization Contact RecordReported bypatient.Follow UpHospital: [place]; date of admit: (01/02/2020); date of discharge: (01/05/2020); date of contact: (01/06/2020) Follow up with Dr. Navarro 01/07/2020 via phone 9:00 am Patient contacted within 2 days of Hospital DC. You may use Transitional Care Management CPT code 49492/07566 for this visit. Please note, patient may need prescriptions for new medications started upon discharge. DC summary, urology consult note, and operative note faxed to [facility]. Problem list reconciled from hospital problem list [...] for the pain. Is moving closer to [facility] at the end of week - will be in [place] and will be getting a new home health nurse - currently have [facility] who will be out today or tomorrow. Blood glucose averaging about 140. 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 Is drinking clear fluids. Has two drains - not much drainage - dressings clean/dry/intact. Denies fever or s/sx infection and using incentive spirometer. Declines need for HFU at this time and encouraged to call clinic if needed. Zofia Taylor RN [address] [place], [address], [facility] - [facility] 01/06/2020 18:07:53 01/19/2020 text/html Hospitalization Contact RecordReported bypatient.Follow UpHospital: [facility]; date of admit: (01/12/20); date of discharge: (01/18/20); date of contact: (01/19/20) Patient contacted within 2 days of Hospital DC. You may use Transitional Care Management CPT code 18865/06754 for this visit. Please note, patient may [...] with Patient: He reports Saturday is his [facility] surgery and he is ready for that. He isn't straining his urine. Did catch 2 stones while in hospital [place]. I let him know we will follow up with him after [facility] d/c. Marilee Roman RN, [facility] [address] [place], [address], [facility] 01/19/2020 20:20:26 02/08/2020 text/html Hospitalization Contact RecordReported bypatient.Follow UpHospital: [facility]; date of admit: (01/22/2020); date of discharge: (02/07/2020); date of contact: (02/08/2020) Patient contacted within 2 days of Hospital DC. You may use Transitional Care Management CPT code 69296/11887 for this visit. Please note, patient may need prescriptions for new medications started upon discharge. DC summary faxed to [facility] chart. Problem list reconciled from hospital problem [...] Navarro, declined HFU. Dianne Coombs RN [address] [place], [address], [facility] 02/08/2020 16:50:59 02/22/2020 text/html Hospitalization Contact RecordReported bypatient.Follow UpHospital: [facility]; date of admit: (02/11/2020); date of discharge: (02/20/2020); date of contact: (02/22/2020) Follow up with Dr. Navarro in one weekFollow up with urology Patient contacted within 2 days of Hospital DC. You may use Transitional Care Management CPT code 83845/66475 for this visit. Please note, patient may need prescriptions for new medications started upon discharge. DC summary and consult notes faxed to [facility] chart. Problem list reconciled from hospital problem [...] dehydration - has spoken with provider at [facility] today. Last blood pressure 90/46 - waiting on [employer] for extra fluids. Losing energy and is fatigued - denies headache right now. Trying to drink additional fluids but just comes out of his bag and unable to retain. Has moved to [facility] now - patient just wants to get back to [place]. Instructed to go to ED for fluid and ask for additional IV fluid bags. Patient not wanting to be admitted again at the hospital. Notified provider who agrees to instruct patient to go to ED. Verbalized understanding. Zofia Taylor, ADALGISA [address] [place], [address], [facility] 02/22/2020 21:34:40
--- OUTSIDE RECORDS SUMMARY | 2025-02-27 12:29 | XMS_ITS | Data Portability ---
Author Organization [place] - [facility], [employer] Address [address] [place] [address] Assessment Encounter Date Assessment Date Assessment LastModified [...] seen Dr Khan 11/03 [facility]t. [facility] 10:23:27 Problem Notes None recorded. Procedures Surgical History Date Name Laterality Status Provider Name and Address Organization Details Recorded Time 12/29/2024 NAIL/Callus DEBRIDEMENT completed BIENVENIDO WHITTAKER DPM [address] [place], [address], [facility] 12/29/2024 15:49:38 11/24/2024 Ulcer Care completed BIENVENIDO WHITTAKER DPM [address] [place], [address], [facility] 11/24/2024 14:17:27 09/01/2024 mkmI&D completed BIENVENIDO WHITTAKER DPM [address] [place], [address], [facility] - [facility] 09/01/2024 11:01:00 Imaging Results None recorded. Procedure Notes None recorded. Medical Equipment None Reported. Allergies Allergen ID Allergen Name Allergen Category Reaction Reaction Severity Criticality Documentation Date Start Date Code Code System Note Provider Name and Address Organization Details Recorded Time 99098 oxycodone medicatio n Not available Not available Not available 10/13/2024 7804 RxNorm Maida Lorenzo null, [place] - [facility] 5 10:34:02 14367 acetamino phen / oxycodone medicatio n Not available Not available Not available 10/13/2024 28502 3 RxNorm Maida Lorenzo null, [place] - [facility] 5 10:34:12 66971 propoxyph dewayne medicatio n Not available Not available Not available 10/13/2024 8785 RxNorm Maida Lorenzo null, [place] - [facility] 5 10:34:24 17454 Darvocet- N medicatio n Not available Not available Not available 10/13/2024 05512 UNK Maida Lorenzo null, [place] - [facility] 5 10:34:34 74324 bupropion Not available Not available Not available Not available 10/13/2024 11192 RxNorm Maida Lorenzo null, [place] - [facility] 5 10:34:45 26217 Wellbutri n medicatio n Not available Not available Not available 10/13/2024 07729 RxNorm Maida Lorenzo null, [place] - [facility] [...] Updated DateTime 11/24/2024 187.96 cm 30.3 kg/m2 299769.8 g Maida Ventura [place] - [facility] 11/24/2024 10:21:02 Social History None recorded. Functional Status None recorded. Mental Status None recorded. Family History Nothing Reported. Medical History No medical history recorded. Past Encounters Encounter ID Performer Location Encounter Start Date Encounter Closed Date Diagnosis/Indication Diagnosis SNOMED-CT Code Diagnosis ICD10 Code Diagnosis Note [id number] BIENVENIDO WHITTAKER DPM [facility] [address] [place] [address] 09/01/2024 10:38:32 09/02/2024 09:37:45 Peripheral neuropathy due to type 2 diabetes mellitus 2838931830 107 E11.42 Abscess of toe of right foot 8409871339 1382347 L02.611 Cellulitis of right foot 5778037346 6197376 L03.115 Ingrowing nail 268493189 L60.0 History of amputation of hallux 452715294 Z89.412 History of amputation of lesser toe 277693476 Z89.429 Arthritis of right foot 1202811102 986489 M13.871 [id number] BIENVENIDO WHITTAKER DPM [facility] [address] [place] [address] 09/16/2024 11:17:55 09/16/2024 15:14:27 Peripheral neuropathy due to type 2 diabetes mellitus 0443217466 107 E11.42 Abscess of toe of right foot 2699021887 5950156 L02.611 Cellulitis of right foot 6140992270 5166848 L03.115 Ingrowing nail 709873719 L60.0 History of amputation of hallux 038475311 Z89.412 History of amputation of lesser toe 139658212 Z89.429 Arthritis of right foot 3012823806 721617 M13.871 [id number] BIENVENIDO WHITTAKER DPM [facility] [address] [place] [address] 10/12/2024 11:38:26 10/13/2024 17:17:24 Peripheral neuropathy due to type 2 diabetes mellitus 0328340312 107 E11.42 Abscess of toe of right foot 9348111810 1161559 L02.611 Cellulitis of right foot 6188212123 5679676 L03.115 Ingrowing nail 584399692 L60.0 History of amputation of hallux 144797894 Z89.412 History of amputation of lesser toe 573263245 Z89.429 Arthritis of right foot 9484494670 567035 M13.871 [id number] BIENVENIDO WHITTAKER [facility] [address] [place] [address] 11/24/2024 10:02:06 11/24/2024 16:36:17 Ulcer of right foot 129926517 L97.512 [id number] BIENVENIDO WHITTAKER [facility] [address] [place] [address] 12/01/2024 10:40:48 12/01/2024 15:06:13 Ulcer of right foot 738341459 L97.512 [id number] BIENVENDIO WHITTAKER [facility] [address] [place] [address] 12/08/2024 14:47:33 12/09/2024 12:59:33 Ulcer of right foot 921154968 L97.512 [id number] BIENVENIDO WHITTAKER [facility] [address] [place] [address] [facility] [place] [address] 12/29/2024 13:44:10 12/30/2024 16:39:56 Ulcer of right foot 741012140 L97.512 Onychomycosis 859276765 B35.1 Diabetic p eripheral neuropathy 809105332 E11.42 Peripheral vascular disease 642937271 I73.89 Health Concerns Section Related Observation LastModified by Organization Detai ls LastModified Time None Recorded Concern Status LastModified by Organization Details LastModified Time None Recorded Advance Directives Directive None Recorded Payers Insurance Date Sequence Insurance Name Policy Number Policy Landa Covered Member ID Landa Member ID Guarantor Name 01/01/2025 1 [facility] (MEDICARE REPLACEMENT/A DVANTAGE - PPO) [id number] Dale Mateo IssaLuna [id number] Dalecaleb Issason 09/01/2024 1 *SELF PAY* Shalonda [...] MD on 08/19/24 BIENVENIDO WHITTAKER DPM [address] [place], [address], [facility] - [facility] 10/13/2024 [...] the foot and follow up with a technical support assistant. The patient denies any nausea, vomiting, chills, [...] appointment on 12/11/24 BIENVENIDO WHITTAKER DPM [address] [place], [address], [facility] - [facility] 11/24/2024 [...] the foot and follow up with a technical support assistant. The patient denies any nausea, vomiting, chills, [...] appointment on 12/11/24 BIENVENIDO WHITTAKER DPM [address] [place], [address], [facility] - [facility] 12/01/2024 [...] the foot and follow up with a technical support assistant. The patient denies any nausea, vomiting, chills, [...] appointment on 12/11/24 BIENVENIDO WHITTAKER DPM [address] [place], [address], [facility] - [facility] 12/09/2024 [...] seen by their primary care provider, Dr. hKan, on December 11, 2024. PRIOR HISTORY:The patient [...] the foot and follow up with a technical support assistant. The patient denies any nausea, vomiting, chills, [...] appointment on 12/11/24 BIENVENIDO WHITTAKER DPM [address] [place], [address], [facility] - [facility] 12/29/2024 15:53:51
--- NOTE | 2025-02-27 12:39 | CRLHL7_ITS ---
For Patients: As a result of the Century Cures Act, medical imaging exams and procedure reports are released immediately into your electronic medical record. You may view this report before your referring provider. If you have questions, please contact your health care provider. INDICATION: Shortness of breath. TECHNIQUE: Chest 2 views. COMPARISON: 02/16/2025. FINDINGS: No pneumothorax. Small bilateral pleural effusions. Prominence of the bilateral pulmonary interstitium has increased. Cardiomegaly, unchanged. Mediastinal contour is otherwise stable. Upper abdomen and osseous structures as imaged show no acute abnormality. IMPRESSION: Interstitial pulmonary edema and small bilateral pleural effusions. Dictated by Alexsander Westbrook MD @ 02/27/2025 1:51:55 PM (Electronically Signed)
--- OUTSIDE RECORDS SUMMARY | 2025-02-27 12:51 | XMS_ITS | Clinical Summary ---
Author Organization [facility] Address [address] , [address] [place] [address] Phone Care Team Providers Care Pressure Tester Operator Name Role Phone Records, Outside Unavailable Unavailable Conditions or Problems Problem Name Problem Code Onset Date Status Entry Date Provider Comment Standard Description Annotate Ulnar neuropathy, bilateral 528731399 (SNOMED CT) Active Huber Andersen MD Ulnar neuropathy Other lesions of median nerve, bilateral upper limbs 830278997 (SNOMED CT) Active Huber Andersen MD Lesion [...] Procedures Code Procedure Name Date Entry Date CPT-27533 Nerve Conduction 13 or more studies 05/09 CPT-65579 EMG with NCS (5+ muscles) - 2 limbs 05/09 Vital Signs No information available. Immunizations No information available. Advance Directives No information available.
--- NOTE | 2025-02-27 13:10 | ED.GENADULT ---
HPI - General Adult General Chief complaint: Shortness of Breath/Dyspnea Stated complaint: shortness of breath Time Seen by Provider: 02/27/25 12:38 Source: patient Mode of arrival: ambulatory Limitations: no limitations History of Present Illness HPI narrative: 69-year-old male presenting today with shortness of breath that started last night. Patient states that he did his spirometry 2 times last night thinking this would help and it really did not. He feels short of breath at rest but certainly gets worse with any physical activity. He denies cough, fevers or chills. Patient is a history of congestive heart failure, coronary artery disease, type 2 diabetes. He had stents placed approximately 2 weeks ago and has been home for the last week. He had his Lasix increased to 40 mg daily 2 days ago, has not noticed increased urinary frequency. He states he has a little bit of right-sided chest pain that started this morning. Does not take his breath away, does not make him feel lightheaded or diaphoretic. He states that he barely notices that it is there. Related Data Home Medications ?Medication ?Instructions ?Recorded ?Confirmed atorvastatin 40 mg tablet 40 mg PO HS 01/08/23 02/27/25 gabapentin 300 mg capsule 1,200 mg PO BID 01/08/23 02/27/25 insulin glargine 100 unit/mL (3 20 unit subcut HS 01/08/23 02/27/25 mL) subcutaneous pen (Lantus Solostar U-100 Insulin) insulin lispro 100 unit/mL 6 - 10 unit subcut TIDWM 01/08/23 02/27/25 subcutaneous pen metformin 500 mg tablet,extended 1,000 mg PO BIDWM 01/08/23 02/27/25 release 24 hr clopidogrel 75 mg tablet 75 mg PO DAILY 11/11/23 02/27/25 duloxetine 30 mg capsule,delayed 30 mg PO DAILY 04/20/24 02/27/25 release insulin lispro 100 unit/mL 1 sliding scale dose subcut 05/18/24 02/27/25 subcutaneous cartridge (Humalog USEASDIRECTD U-100 Insulin) acetaminophen 500 mg tablet 500 mg PO TID PRN 07/14/24 02/27/25 aspirin 81 mg tablet,delayed 81 mg PO DAILY 07/14/24 02/27/25 release (Adult Low Dose Aspirin) empagliflozin 10 mg tablet 10 mg PO DAILY 07/14/24 02/27/25 (Jardiance) multivitamin (Daily Multi-Vitamin 1 tab PO DAILY 07/14/24 02/27/25 tablet) nitroglycerin 0.4 mg sublingual 0.4 mg sublingual Q5-15M PRN 07/14/24 02/27/25 tablet furosemide 20 mg tablet (Lasix) 40 mg PO QAM 08/31/24 02/27/25 lorazepam 1 mg tablet 1 mg PO DAILY PRN 01/22/25 02/27/25 losartan 25 mg tablet 12.5 mg PO DAILY 01/22/25 02/27/25 Allergies Allergy/AdvReac Type Severity Reaction Status Date / Time propoxyphene (From Allergy Mild Verified 02/27/25 12:33 Darvocet-N) bupropion (From Wellbutrin) Allergy Verified 02/27/25 12:33 Review of Systems Status of ROS: Reports: 10 or more systems reviewed and unremarkable except as noted in History and below PFSH PFS Medical History Non-ST elevated myocardial infarction ?I21.4 - Non-ST elevation (NSTEMI) myocardial infarction (ICD-10) Surgical History H/O heart artery stent ?Z95.5 - Presence of coronary angioplasty implant and graft (ICD-10) Amputated toe of left foot ?S98.132A - Complete traumatic amputation of one left lesser toe, initial encounter (ICD-10) Cervical vertebral fusion ?M43.22 - Fusion of spine, cervical region (ICD-10) S/P right rotator cuff repair ?Z98.890 - Other specified postprocedural states (ICD-10) History of cholecystectomy ?Z90.49 - Acquired absence of other specified parts of digestive tract (ICD-10) History of appendectomy ?Z90.49 - Acquired absence of other specified parts of digestive tract (ICD-10) Gastric bypass status for obesity ?Z98.84 - Bariatric surgery status (ICD-10) Social History Smoking Status: Never smoker Do you use any of these nicotine containing products: None Second hand tobacco smoke exposure: No How often do you have a drink containing alcohol: 2-3 times a week How many standard drinks containing alcohol do you have on a typical day: 1 or 2 How often do you have six or more drinks on one occasion: Never AUDIT-C Alcohol total score: 3 Non-prescribed substance use: denies use service: No Exam Narrative: Exam Narrative: Well-nourished well-developed patient in mild respiratory distress-patient is slightly tachypneic. Alert and oriented. Answers questions appropriately. Mood and affect are appropriate. Thoughts are goal oriented and rational. No tangential or magical thinking noted. Patient has a hard time completing a sentence without needing to catch his breath. HEENT: Normocephalic atraumatic. Pupils are equally round reactive to light. Extraocular muscles are intact. Conjunctivae are moist without any icterus noted. Moist mucous membranes. Posterior pharynx is normal. Neck is supple. Cardiovascular: Heart is regular rate and rhythm. Lungs: Bilateral crackles are appreciated. Abdomen: Soft and nontender nondistended with normal bowel sounds. Extremities: Bilateral lower extremities show 1+ pitting edema all the way up to the knees. Patient is wearing compression stockings. Skin: Well perfused. Const: Vital Signs, click to edit/add: Vital Signs - 24 hr 02/27/25 12:28 02/27/25 13:26 02/27/25 13:30 Temperature 98.2 F Pulse Rate 95 96 Pulse Rate [Right Pulse Oximeter] 98 Respiratory Rate 18 Blood Pressure Blood Pressure [Ri ght Upper Arm] 116/78 Pulse Oximetry 98 98 98 Oxygen Delivery Me thod Room Air 02/27/25 13:32 02/27/25 13:45 02/27/25 14:00 Temperature Pulse Rate 99 96 Pulse Rate [Right Pulse Oximeter] Respiratory Rate 17 Blood Pressure 110/70 Blood Pressure [Ri ght Upper Arm] Pulse Oximetry 99 98 Oxygen Delivery Me thod 02/27/25 14:02 02/27/25 14:03 02/27/25 14:15 Temperature Pulse Rate 105 H 106 H 97 Pulse Rate [Right Pulse Oximeter] Respiratory Rate 16 21 10 L Blood Pressure 102/87 Blood Pressure [Ri ght Upper Arm] Pulse Oximetry 97 96 97 Oxygen Delivery Ar thod 02/27/25 14:30 02/27/25 14:32 02/27/25 14:40 Temperature Pulse Rate 98 100 99 Pulse Rate [Right Pulse Oximeter] Respiratory Rate 17 29 H 14 Blood Pressure 127/82 124/77 Blood Pressure [Ri ght Upper Arm] Pulse Oximetry 96 95 96 Oxygen Delivery Me thod 02/27/25 14:45 02/27/25 14:52 02/27/25 15:00 Temperature Pulse Rate 95 94 95 Pulse Rate [Right Pulse Oximeter] Respiratory Rate 11 L Blood Pressure 121/76 Blood Pressure [Ri ght Upper Arm] Pulse Oximetry 95 95 91 Oxygen Delivery Me thod 02/27/25 15:02 02/27/25 15:03 02/27/25 15:11 Temperature Pulse Rate 94 94 Pulse Rate [Right Pulse Oximeter] Respiratory Rate 15 13 Blood Pressure 105/89 127/74 Blood Pressure [Ri ght Upper Arm] Pulse Oximetry 91 94 Oxygen Delivery Me thod 02/27/25 15:15 02/27/25 15:20 02/27/25 15:22 Temperature Pulse Rate 96 91 91 Pulse Rate [Right Pulse Oximeter] Respiratory Rate 15 14 17 Blood Pressure 113/87 Blood Pressure [Ri ght Upper Arm] Pulse Oximetry 91 97 97 Oxygen Delivery Me thod 02/27/25 15:30 02/27/25 15:32 02/27/25 15:33 Temperature Pulse Rate 90 91 90 Pulse Rate [Right Pulse Oximeter] Respiratory Rate 11 L 9 L Blood Pressure 110/85 Blood Pressure [Ri ght Upper Arm] Pulse Oximetry 96 96 97 Oxygen Delivery Me thod 02/27/25 15:40 02/27/25 15:42 02/27/25 15:50 Temperature Pulse Rate 91 91 91 Pulse Rate [Right Pulse Oximeter] Respiratory Rate 15 13 21 Blood Pressure 123/76 Blood Pressure [Ri ght Upper Arm] Pulse Oximetry 96 94 96 Oxygen Delivery Me thod 02/27/25 15:52 02/27/25 16:00 02/27/25 16:02 Temperature Pulse Rate 91 92 86 Pulse Rate [Right Pulse Oximeter] Respiratory Rate 11 L 9 L 15 Blood Pressure 117/83 124/84 Blood Pressure [Ri ght Upper Arm] Pulse Oximetry 96 94 94 Oxygen Delivery Me thod 02/27/25 16:10 02/27/25 16:12 02/27/25 16:13 Temperature Pulse Rate 92 92 92 Pulse Rate [Right Pulse Oximeter] Respiratory Rate 10 L 20 9 L Blood Pressure 121/84 Blood Pressure [Ri ght Upper Arm] Pulse Oximetry 97 94 95 Oxygen Delivery Me thod 02/27/25 16:20 02/27/25 16:22 02/27/25 16:28 Temperature Pulse Rate 93 91 92 Pulse Rate [Right Pulse Oximeter] Respiratory Rate 8 L 17 Blood Pressure 125/82 115/77 Blood Pressure [Ri ght Upper Arm] Pulse Oximetry 96 97 97 Oxygen Delivery Me thod 02/27/25 16:30 02/27/25 16:32 02/27/25 16:33 Temperature Pulse Rate 91 91 90 Pulse Rate [Right Pulse Oximeter] Respiratory Rate 12 12 9 L Blood Pressure 114/79 Blood Pressure [Ri ght Upper Arm] Pulse Oximetry 96 99 93 Oxygen Delivery Ar thod 02/27/25 16:40 02/27/25 16:42 02/27/25 16:50 Temperature Pulse Rate 91 91 91 Pulse Rate [Right Pulse Oximeter] Respiratory Rate 9 L 19 Blood Pressure 113/78 Blood Pressure [Ri ght Upper Arm] Pulse Oximetry 97 96 94 Oxygen Delivery Me thod 02/27/25 16:52 Temperature Pulse Rate 91 Pulse Rate [Right Pulse Oximeter] Respiratory Rate 13 Blood Pressure 111/93 H Blood Pressure [Ri ght Upper Arm] Pulse Oximetry 96 Oxygen Delivery Me thod Course Course ED Course: Differential diagnosis includes acute coronary syndrome, pneumonia, pulmonary edema. The patient does appear to be in acute congestive heart failure. IV established and patient is given 40 mg of IV Lasix. EKG, read by me, shows normal sinus rhythm with a first-degree AV block, pulse 96, right bundle-branch block. Chest x-ray showing pulmonary edema and small bilateral pleural effusions. His blood work was generally unremarkable aside from an elevated troponin at 0.35 and a BNP of 7880. Patient received full-dose aspirin at this time. He remained chest pain-free and because he does have congestive heart failure, and because troponins were elevated as high as 9 when he previously had chest pain I did hold off Heparin at this time as elevated troponin could certainly be due to congestive heart failure. Repeat troponin however did come back at 0.38. At this time I did page cardiology and start the patient on heparin. Repeat EKG was unchanged. While waiting for the rubber molder to call us back patient developed acute sudden substernal chest pain. Did repeat his EKG at this time as well, no ST elevations. At this time he received a dose of sublingual nitro and 2 mg of IV morphine which took his pain away and he felt significantly better. He remained hemodynamically stable. Cardiology recommended transfer at this time. Up to a 4 hour bed wait. Patient was here for approximately another 2 hours waiting for placement, he remained chest pain-free during this time. Vital Signs Vital signs: Initial Vital Signs Temperature 98.2 F 02/27/25 12:28 Temperature Source Temporal Artery Scan 02/27/25 12:28 Pulse Rate 98 02/27/25 12:28 Pulse Rhythm Regular 02/27/25 12:28 Pulse Strength 3+ Normal 02/27/25 12:28 Respiratory Rate 18 02/27/25 12:28 Blood Pressure 116/78 02/27/25 12:28 Blood Pressure Mean 90 02/27/25 12:28 Blood Pressure Position Sitting 02/27/25 12:28 Pulse Oximetry 98 02/27/25 12:28 Oxygen Delivery Method Room Air 02/27/25 12:28 Vital Signs Temperature 98.2 F 02/27/25 12:28 Pulse Rate 98 02/27/25 12:28 Respiratory Rate 18 02/27/25 12:28 Blood Pressure 116/78 02/27/25 12:28 Pulse Oximetry 98 02/27/25 12:28 Oxygen Delivery Method Room Air 02/27/25 12:28 Temperature 98.2 F 02/27/25 12:28 Pulse Rate 91 02/27/25 16:52 Respiratory Rate 13 02/27/25 16:52 Blood Pressure 111/93 H 02/27/25 16:52 Pulse Oximetry 96 02/27/25 16:52 Oxygen Delivery Method Room Air 02/27/25 12:28 Medications Administered Medications: Generic Name Dose Route Start Last Admin Trade Name Freq PRN Reason Stop Dose Admin Heparin Sodium/Dextrose 25,000 unit in 500 mls @ 0 mls/hr 02/27/25 14:30 02/27/25 14:42 Heparin IV 1,000 unit/hr .Q0M GIOVANNI 20 mls/hr Protocol Administration Per Protocol Discontinued Medications Generic Name Dose Route Start Last Admin Trade Name Freq PRN Reason Stop Dose Admin Aspirin 324 mg 02/27/25 13:35 02/27/25 13:43 Aspirin 81 Mg Tab.Chew PO 02/27/25 13:36 324 mg ONCE ONE Administration Furosemide 40 mg 02/27/25 12:44 02/27/25 13:34 Furosemide 10 Mg/Ml Inj IVP 02/27/25 12:45 40 mg ONCE ONE Administration Heparin Sodium (Porcine) 4,000 unit 02/27/25 14:29 02/27/25 14:36 Heparin 5,000 Unit/0.5 Ml Inj IVP 02/27/25 14:30 4,000 unit ONCE ONE Administration Morphine Sulfate 2 mg 02/27/25 14:45 02/27/25 14:39 Morphine 2 Mg/Ml Inj IVP 02/27/25 14:46 2 mg ONCE ONE Administration Nitroglycerin 0.4 mg 02/27/25 14:45 02/27/25 14:36 Nitroglycerin 0.4 Mg Tab.Subl SUBLINGUAL 02/27/25 14:46 0.4 mg ONCE ONE Administration Medical Decision Making MDM Narrative Medical decision making narrative: 69-year-old male presenting with shortness of breath, subsequent chest pain and elevated troponin concerning for non ST elevation ID. Patient will be transfer to [facility] for further management. Medical Records Medical records reviewed: Yes I reviewed the patient's medical records Lab Data Lab results reviewed: Yes I reviewed the patient's lab results Labs: Lab Results 02/27/25 02/27/25 02/27/25 Range/Units 12:39 13:03 13:16 WBC 5.40 (4.50-11.00) K/uL RBC 4.47 (4.30-5.90) m/uL Hgb 12.5 L (13.5-17.5) gm/dL Hct 40.0 (37.0-53.0) % MCV 90 (80-100) fL MCH 28 (26-34) pg MCHC 31 L (32-36) gm/dL RDW Coeff of Lou 13.2 (11.5-15.5) % Plt Count 256 (140-440) K/uL Neut % (Auto) 63.6 (42.0-72.0) % Lymph % (Auto) 23.0 (20-44) % [place] % (Auto) 9.1 (0.0-11.0) % Eos % (Auto) 3.9 (0.0-7.0) % Baso % (Auto) 0.2 (0.0-3.0) % Neut # (Auto) 3.44 (1.7-7.0) K/uL Lymph # (Auto) 1.24 (0.90-2.90) K/uL [place] # (Auto) 0.50 (0.00-0.90) K/UL Eos # (Auto) 0.21 (0.00-0.50) K/uL Baso # (Auto) 0.01 (0.00-0.30) K/uL Abs Immat Gran (auto) 0.01 (0.00-0.30) K/uL Imm/Tot Granulo (auto) 0.2 % INR (0.91-1.10) APTT (23-33) Seconds D-Dimer Quant (PE/DVT) 0.28 (0.00-0.50) ug/ml Sodium 140 (135-149) mmol/L Potassium 4.0 (3.6-5.1) mmol/L Chloride 106 (96-114) mmol/L Carbon Dioxide 26 (20-32) mmol/L Anion Gap 8 (7-15) mEq/L BUN 24 (7-30) mg/dL Creatinine 1.2 (0.5-1.5) mg/dL Estimated Creat Clear 68.50 Estimated GFR 66 ml/min Glucose 152 H (60-115) mg/dL Lactate 1.9 (0.5-1.9) mmol/L Calcium 8.8 (8.4-10.6) mg/dL Magnesium 2.2 (1.5-2.6) mg/dL Total Bilirubin 1.0 (0.1-1.5) mg/dL Direct Bilirubin 0.1 (0.0-0.5) mg/dL AST 28 (12-35) U/L ALT 24 (4-50) U/L Alkaline Phosphatase 36 L (40-150) U/L Troponin I 0.28 H* (0.01-0.04) ng/mL C-Reactive Protein 1.3 H (0.5-1.0) mg/dL NT-Pro-B Natriuret Pep 7880 H (See Note) pg/mL Total Protein 6.7 (6.0-8.3) g/dL Albumin 3.8 (3.3-5.0) g/dL SARS-CoV-2 (PCR) Negative SARS-CoV-2 (Negative) Influenza Type A (PCR) Negative PCR FLU A (Negative) Influenza Type B (PCR) Negative PCR FLU B (Negative) RSV (PCR) Negative PCR RSV (Negative) POC Troponin I 0.35 H (0.01-0.04) ng/ml 02/27/25 02/27/25 Range/Units 14:01 14:29 WBC (4.50-11.00) K/uL RBC (4.30-5.90) m/uL Hgb (13.5-17.5) gm/dL Hct (37.0-53.0) % MCV (80-100) fL MCH (26-34) pg MCHC (32-36) gm/dL RDW Coeff of Lou (11.5-15.5) % Plt Count (140-440) K/uL Neut % (Auto) (42.0-72.0) % Lymph % (Auto) (20-44) % [place] % (Auto) (0.0-11.0) % Eos % (Auto) (0.0-7.0) % Baso % (Auto) (0.0-3.0) % Neut # (Auto) (1.7-7.0) K/uL Lymph # (Auto) (0.90-2.90) K/uL [place] # (Auto) (0.00-0.90) K/UL Eos # (Auto) (0.00-0.50) K/uL Baso # (Auto) (0.00-0.30) K/uL Abs Immat Gran (auto) (0.00-0.30) K/uL Imm/Tot Granulo (auto) % INR 1.05 (0.91-1.10) APTT 36 H (23-33) Seconds D-Dimer Quant (PE/DVT) (0.00-0.50) ug/ml Sodium (135-149) mmol/L Potassium (3.6-5.1) mmol/L Chloride (96-114) mmol/L Carbon Dioxide (20-32) mmol/L Anion Gap (7-15) mEq/L BUN (7-30) mg/dL Creatinine (0.5-1.5) mg/dL Estimated Creat Clear Estimated GFR ml/min Glucose (60-115) mg/dL Lactate (0.5-1.9) mmol/L Calcium (8.4-10.6) mg/dL Magnesium (1.5-2.6) mg/dL Total Bilirubin (0.1-1.5) mg/dL Direct Bilirubin (0.0-0.5) mg/dL AST (12-35) U/L ALT (4-50) U/L Alkaline Phosphatase (40-150) U/L Troponin I (0.01-0.04) ng/mL C-Reactive Protein (0.5-1.0) mg/dL NT-Pro-B Natriuret Pep (See Note) pg/mL Total Protein (6.0-8.3) g/dL Albumin (3.3-5.0) g/dL SARS-CoV-2 (PCR) (Negative) Influenza Type A (PCR) (Negative) Influenza Type B (PCR) (Negative) RSV (PCR) (Negative) POC Troponin I 0.38 H (0.01-0.04) ng/ml Imaging Data Chest x-ray: Attestation: I have reviewed the pertinent imaging results. Radiologist's impression: TECHNIQUE: Chest 2 views. COMPARISON: 02/16/2025. FINDINGS: No pneumothorax. Small bilateral pleural effusions. Prominence of the bilateral pulmonary interstitium has increased. Cardiomegaly, unchanged. Mediastinal contour is otherwise stable. Upper abdomen and osseous structures as imaged show no acute abnormality. IMPRESSION: Interstitial pulmonary edema and small bilateral pleural effusions. ECG Data Attestation: I personally reviewed and interpreted this ECG as follows: Discharge Plan Discharge Clinical Impression: Non-ST elevation ID (NSTEMI), Chest pain, Shortness of breath Patient Disposition: [facility] Condition: Stable Prescriptions: No Action losartan 25 mg tablet 12.5 mg PO DAILY lorazepam 1 mg tablet 1 mg PO DAILY PRN duloxetine 30 mg capsule,delayed release(DR/EC) 30 mg PO DAILY Humalog U-100 Insulin 100 unit/mL cartridge 1 sliding scale dose subcut USEASDIRECTD furosemide [Lasix] 20 mg tablet 40 mg PO QAM atorvastatin 40 mg tablet 40 mg PO HS gabapentin 300 mg capsule 1,200 mg PO BID metformin 500 mg tablet extended release 24 hr 1,000 mg PO BIDWM insulin lispro 100 unit/mL insulin pen 6 - 10 unit subcut TIDWM insulin glargine [Lantus Solostar U-100 Insulin] 100 unit/mL (3 mL) insulin pen 20 unit subcut HS clopidogrel 75 mg tablet 75 mg PO DAILY acetaminophen 500 mg tablet 500 mg PO TID PRN aspirin [Adult Low Dose Aspirin] 81 mg tablet,delayed release (DR/EC) 81 mg PO DAILY Jardiance 10 mg tablet 10 mg PO DAILY multivitamin [Daily Multi-Vitamin] Tablet 1 tab PO DAILY nitroglycerin 0.4 mg tablet, sublingual 0.4 mg sublingual Q5-15M PRN Rx Instructions: do not exceed 3 doses per episode Stand Alone Forms: [facility] Info [facility]
[2025-02-27 13:27] LABS: Lactate* 1.9 mmol/L (0.5-1.9)
[2025-02-27 13:30] LABS: Hematocrit 40.0 % (37.0-53.0); Hemoglobin* 12.5 gm/dL (13.5-17.5); Immature Granulocytes Abs Auto 0.01 K/uL (0.00-0.30); Immature Granulocytes Pct Auto 0.2 %; Lymphocytes Absolute Auto 1.24 K/uL (0.90-2.90); Mean Corpuscular HGB Conc 31 gm/dL (32-36); Mean Corpuscular Hemoglobin 28 pg (26-34); Mean Corpuscular Volume 90 fL (80-100); RDW Coefficient of Variation % 13.2 % (11.5-15.5); Red Blood Count 4.47 m/uL (4.30-5.90); White Blood Count* 5.40 K/uL (4.50-11.00)
[2025-02-27] MEDS: FUROSEMIDE 10 MG/ML inj 40 MG IVP (13:34)
[2025-02-27 13:35] LABS: Troponin, Point-of-Care* 0.35 ng/ml (0.01-0.04)
[2025-02-27 13:42] LABS: Slide Review Reflex No
[2025-02-27] MEDS: ASPIRIN 81 MG TAB.CHEW 324 MG PO (13:43)
[2025-02-27 13:48] LABS: Albumin* 3.8 g/dL (3.3-5.0); Chloride* 106 mmol/L (96-114); Potassium* 4.0 mmol/L (3.6-5.1); Sodium* 140 mmol/L (135-149)
[2025-02-27 13:51] LABS: Alanine Aminotransferase* 24 U/L (4-50); Alkaline Phosphatase* 36 U/L (40-150); Anion Gap 8 mEq/L (7-15); Aspartate Amino Transferase* 28 U/L (12-35); Bilirubin Direct* 0.1 mg/dL (0.0-0.5); Bilirubin Total* 1.0 mg/dL (0.1-1.5); Blood Urea Nitrogen* 24 mg/dL (7-30); Carbon Dioxide* 26 mmol/L (20-32); Creatinine* 1.2 mg/dL (0.5-1.5); Est. Creatinine Clearance* 68.50; Estimated Glomerular Filt Rate 66 ml/min; Total Protein* 6.7 g/dL (6.0-8.3)
[2025-02-27 13:52] LABS: Calcium* 8.8 mg/dL (8.4-10.6); Glucose* 152 mg/dL (60-115)
[2025-02-27 13:54] LABS: PCR FLU A Negative PCR FLU A (Negative); PCR FLU B Negative PCR FLU B (Negative); PCR RSV Negative PCR RSV (Negative); SARS PCR* Negative SARS-CoV-2 (Negative)
[2025-02-27 14:01] LABS: NT Pro B Type NatriureticPept* 7880 pg/mL (See Note)
[2025-02-27 14:24] LABS: D Dimer Quantitative* 0.28 ug/ml (0.00-0.50)
[2025-02-27 14:31] LABS: Troponin, Point-of-Care* 0.38 ng/ml (0.01-0.04)
[2025-02-27] MEDS: NITROGLYCERIN 0.4 MG TAB.SUBL SUBLINGUAL (14:36)
[2025-02-27] MEDS: HEPARIN 5,000 UNIT/0.5 ML INJ 4000 UNIT IVP (14:36)
[2025-02-27] MEDS: HEPARIN 25,000 UNIT/500 ML BAG 20 UNIT IV (14:42)
[2025-02-27 15:14] LABS: INR 1.05 (0.91-1.10); Prothrombin Time 14.5 Seconds
== END 2025-02-27 17:00 | disposition short-term general hospital (02) ==
PROVIDERS: Emergency Provider Family Medicine; PCP Family Medicine
DX: I21.4 Non-ST elevation (NSTEMI) myocardial infarction (principal)
CPT/HCPCS: 36415; 71046; 80048; 80076; 83605; 83735; 83880; 84484; 85025; 85379; 85610; 85730; 86140; 87631; 93005; 94761; 96374; 96375; 99284; 99285; A9270; J1644; J1938; J2270

== ENCOUNTER 2025-02-27 16:57 | Outpatient (CLI) | payer MEDICARE, SELFPAY | END 2025-02-27 16:58 | disposition home or self-care (01) | PROVIDERS: PCP Family Medicine; Visit Provider Family Medicine | DX: I21.4 Non-ST elevation (NSTEMI) myocardial infarction (principal) | CPT/HCPCS: A0425; A0434 ==

== ENCOUNTER 2025-03-25 05:54 | Outpatient (CLI) | payer MEDICARE, SELFPAY | END 2025-03-25 05:55 | disposition home or self-care (01) | PROVIDERS: PCP Family Medicine; Visit Provider Family Medicine | DX: R07.89 Other chest pain (principal) | CPT/HCPCS: A0425; A0433 ==

== ENCOUNTER 2025-03-25 06:24 | Inpatient (IN) | payer MEDICARE, SELFPAY ==
--- OUTSIDE RECORDS SUMMARY | 2009-03-01 04:22 | XMS_ITS | Continuity of Care Document ---
Author Organization [facility] Address [address] [address] [place] [address] Phone Care Team Providers Care Pond Scaler Name Role Phone Unavailable Unavailable Unavailable Allergies, [...] Diagnoses Date Provider Providers Copied on Encounter [facility], [address] [address], [place], [id number], [place] tel:[phone] [facility] Podiatry No Information No Information [facility], [address] [address], [place], [id number], tel:[phone] [facility] 1st Care f/u gr toe procedure (chief complaint) No Information No Information Offic/outpt E m [facility], [facility], [address] [address], [place], [place], [id number], [place] tel:[phone] [facility] 1st Care Left great toe drainage/re dness (chief complaint) No Information No Information Family History Family Member Type Diagnosis Age At Onset No Information Payers Payer name Insurance type Covered alliance party ID Authoriza tion(s) No Information Social History [...]
--- OUTSIDE RECORDS SUMMARY | 2009-03-01 04:22 | XMS_ITS | Continuity of Care Document ---
Author Organization [employer] [facility] Address [address] [address] [place] [address] Phone Care Team Providers Care Precision Lathe Operator Name Role Phone Unavailable Unavailable Unavailable Allergies, [...] Diagnoses Date Provider Providers Copied on Encounter [facility], [address] [address], [place], [id number], [place] tel:[phone] [facility] Podiatry No Information No Information [facility], [address] [address], [place], [id number], tel:[phone] [facility] 1st Care f/u gr toe procedure (chief complaint) No Information No Information Offic/outpt E m [facility], [facility], [address] [address], [place], [place], [id number], [place] tel:[phone] [facility] 1st Care Left great toe drainage/re dness (chief complaint) No Information No Information Family History Family Member Type Diagnosis Age At Onset No Information Payers Payer name Insurance type Covered constitution party ID Authoriza tion(s) No Information Social [...]
[2025-03-25] VITALS (39 sets, daily range): BP systolic 80–132; BP diastolic 62–103; PULSE 92–110; RESP 7–29; TEMP 36.5–36.7; O2SAT 83–97; BMI 29.8; BMI 29.9
--- OUTSIDE RECORDS SUMMARY | 2025-03-25 06:26 | XMS_ITS | Clinical Summary ---
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 Immunizations No information available. Advance Directives No information available.
--- OUTSIDE RECORDS SUMMARY | 2025-03-25 06:26 | XMS_ITS | Clinical Summary ---
Author Organization [employer] [facility] Address [address] [place] [id number] Care Team Providers Care Electric Meter Inspector Name Role Phone Lakesha Khan MD Primary Care Provider [phone] [facility] [place] Unavailable [phone] Nurses, Advanced Heart Failure Unavailable + Hernesto Jolly [facility] Unavailable [phone] [facility] [place] Unavailable Allergies Active Allergy Reactions Criticality Noted Date Comments Bupropion Dizziness,Other - Describe In Comment Field,*Unknown 06/02/2013 light headed Propoxyphene *Unknown Low 10/12/2024 Propoxyphene-Acetaminoph en Other [...] in 15 minutes. 25 Tablet 1 07/29/20 2:49 PM TSO 023 Active FreeStyle Jordana 2 ReaderIndications :Type 2 diabetes mellitus with diabetic polyneuropathy, with long-term current use of insulin (HC) To be used to read blood sugars per store worker's directions. 1 Each 024 Active metFORMIN (GLUCOPHAGE [...] once daily. 93 Capsule 3 025 Active Pen Needle 32 gauge x [...] days AND USE DIRECTED 6 Each 3 Active ticagrelor (BRILINTA) 90 mg tabletIndications :NSTEMI (non-ST elevated myocardial infarction) (HC) Take 1 Tablet (90 mg) by mouth two times daily. Take for 1 year 60 Tablet 11 02/18/20 25 4:09 PM CDT Active empagliflozin (Jardiance) 10 mg tabletIndications :Type 2 diabetes mellitus with diabetic polyneuropathy, with long-term current use of insulin (HC) TAKE ONE TABLET BY MOUTH ONE TIME DAILY 93 Tablet 3 Active Additional Information Patient not taking.Reported on 03/18/2025 isosorbide mononitrate (IMDUR) 60 mg extended release tablet 24 hourIndications:N STEMI (non-ST elevated myocardial infarction) (HC) Take 0.5 Tablets (30 mg) by mouth once daily. Active Additional Information Patient not taking.Reason: on hold, Reported on 03/22/2025 hydrOXYzine pamoate (VISTARIL) 50 mg capsuleIndication s:Anxiety Take 1 Capsule (50 mg) by mouth 3 times daily if needed for Anxiety. 60 Capsule Active Lantus Solostar U-100 Insulin 100 unit/mL (3 mL) penIndications:Ty pe 2 diabetes mellitus with diabetic polyneuropathy, with long-term current use of insulin (HC) Inject 16 units subcutaneous before bedtime. 20 mL 3 Active WalkerIndications :Syncope and collapse,Impaired mobility Walker with front wheels for home use. 1 Each Active furosemide (LASIX) 20 mg tabletIndications :Acute HFrEF (heart failure with reduced ejection fraction) (HC) Take 1 Tablet (20 mg) by mouth once daily in the morning. Take an additional 2 tablets (40 mg) on a day your weight increases 3 lbs Active Additional Information Patient not taking.Reported on 03/18/2025 gabapentin (NEURONTIN) 300 mg capsuleIndication s:Spinal stenosis of lumbar region with neurogenic claudication Take 2 Capsules (600 mg) by mouth three times daily. Active sacubitril-valsar lan (ENTRESTO 24 MG-26 MG TABLET) 24-26 mg tabletIndications :Syncope, unspecified syncope type,Hypotension, unspecified hypotension type Take 0.5 Tablets by mouth two times daily. DO NOT TAKE till discussion with Active Additional Information Patient not taking.Reported on 03/18/2025 metoprolol succinate (Toprol XL) 25 mg Sustained-Release tabletIndications :Acute HFrEF (heart failure with reduced ejection fraction) (HC) Take 0.5 Tablets (12.5 mg) by mouth once daily. Active empagliflozin (JARDIANCE) 10 mg tabletIndications :Type 2 diabetes mellitus with diabetic polyneuropathy, with long-term current use of insulin (HC) Take 1 Tablet (10 mg) by mouth once daily. 100 Tablet 3 024 2024 Discontinued gabapentin 300 mg capsuleIndication s:Spinal stenosis of lumbar region with neurogenic claudication Take 3 Capsules (900 mg) by mouth three times daily. 025 2024 Discontinued Lantus Solostar U-100 Insulin 100 unit/mL (3 mL) penIndications:Ty pe 2 diabetes mellitus with diabetic polyneuropathy, with long-term current use of insulin (HC) Inject 18 units subcutaneous before bedtime. 20 mL 3 025 2024 Discontinued(* Medication adjustment) furosemide 20 mg tabletIndications :Acute HFrEF (heart failure with reduced ejection fraction) (HC) TAKE ONE TABLET BY MOUTH IN THE MORNING 90 Tablet 3 025 2024 Discontinued(* Medication adjustment) sacubitril-valsar lan (ENTRESTO) 24-26 mg tablet Take 0.5 Tablets by mouth two times daily. 2024 Discontinued(P harmacist change per medication history (E-cancel not sent)) metoprolol succinate (Toprol XL) 25 mg Sustained-Release tabletIndications :Coronary atherosclerosis due to calcified coronary lesion of upper mattaponi artery,Acute HFrEF (heart failure with reduced ejection fraction) (HC) Take 1 Tablet (25 mg) by mouth two times daily. 45 Tablet 3 02/20/20 25 2:58 PM CDT 025 2024 Discontinued(* IP Discontinued) isosorbide mononitrate (IMDUR) 60 mg extended release tablet 24 hourIndications:N STEMI (non-ST elevated myocardial infarction) (HC) Take 1 Tablet (60 mg) by mouth once daily. 30 Tablet 02/22/20 25 10:24 AM CDT 025 2024 Discontinued furosemide (LASIX) 20 mg tabletIndications :Acute HFrEF (heart failure with reduced ejection fraction) (HC) Take 2 Tablets (40 mg) by mouth once daily in the morning. 025 2024 Discontinued sacubitril-valsar lan (ENTRESTO 24 MG-26 MG TABLET) 24-26 mg tablet Take 0.5 Tablets by mouth two times daily. 2024 Discontinued furosemide (LASIX) 20 mg tabletIndications :Acute HFrEF (heart failure with reduced ejection fraction) (HC) Take 2 Tablets (40 mg) by mouth once daily in the morning. Take an additional 2 tablets (40 mg) on a day your weight increases 3 lbs 025 2024 Discontinued metoprolol succinate (Toprol XL) 25 mg Sustained-Release tabletIndications :Acute HFrEF (heart failure with reduced ejection fraction) (HC) Take one-half tablet (12.5 mg) by mouth two times daily. 15 Tablet 025 2024 Discontinued metoprolol succinate (Toprol XL) 25 mg Sustained-Release tabletIndications :Acute HFrEF (heart failure with reduced ejection fraction) (HC) Take 0.5 Tablets (12.5 mg) by mouth two times daily. 15 Tablet 025 2024 Discontinued(* Medication adjustment) metoprolol succinate (Toprol XL) 25 mg Sustained-Release tabletIndications :Acute HFrEF (heart failure with reduced ejection fraction) (HC) Take 0.5 Tablets (12.5 mg) by mouth two times daily. 60 Tablet 2 025 2024 Discontinued(* Medication adjustment) Active Problems Problem Noted Date Diagnosed Date Hypertension associated with type 2 diabetes raghav litus 03/13/2025 Hyperlipidemia associated with type 2 diabetes m senait 03/13/2025 Chronic HFrEF (heart failure with reduced ejection fraction) 03/13/2025 Syncope and collapse 03/13/2025 Fall 03/12/2025 NSTEMI (non-ST elevated myocardial infarction) 0 02/17/2025 Syncope 12/09/2024 Skin ulcer, unspecified ulcer stage 08/19/2024 Acute on chronic systolic (congestive) heart maykel lure 08/19/2024 Other ventricular tachycardia 08/19/2024 Platelets decreased 04/24/2024 Syncope 11/06/2023 Troponin level elevated 11/06/2023 Ischemic cardiomyopathy 11/06/2023 Stage 3 chronic kidney disease 07/26/2023 ASCVD (arteriosclerotic cardiovascular disease) 05/27/2023 Overview (07/31/2023): [id number] MYOCARDIAL INFARCTION on 07/26/23. He is to stay on Plavix and aspirin for at least a year. 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 Resolved Problems Problem Noted Date Diagnosed Date Resolved Date Syncope 03/12/2025 03/13/2025 Chronic systolic CHF (conges tive heart failure) 07/26/2023 03/13/2025 NSTEMI (non-ST elevated myoc ardial infarction) 07/26/2023 03/13/2025 Acute HFrEF (heart failure w ith reduced ejection fraction) 05/27/2023 03/13/2025 Acute on chronic diastolic heart failure 05/26/2023 05/27/[address] 09/14/2020 Chronic diastolic heart failure 09/15/2019 3 03/13/2025 Hyperlipidemia 06/10/2019 11/29/2022 03/13/2025 Essential hypertension 12/03/201803/13 Encounters Date Type Department Care Team Description 03/24/2025 8:12 AM CDT - 03/24/2025 11:59 PM CDT Hospital Encounter [address] [address] 03/24/2025 Travel 03/22/2025 2:45 PM CDT Office Visit [facility] [address] [place] [address] Lakesha Khan MD Hospital F/U (Patient was admitted 03/12 and discharged 03/18 for syncope and collapse.Patient states he is tired and fatigued. ) 03/22/2025 8:11 AM CDT - 03/22/2025 11:59 PM CDT Hospital Encounter [address] [address] 03/22/2025 Travel 03/19/2025 8:14 AM CDT - 03/19/2025 11:59 PM CDT Hospital Encounter [address] [address] 03/19/2025 Travel 03/19/2025 Telephone [facility] [address] [place] [address] Hernesto Jolly MBChB Heart rate 03/19/2025 [facility] Visit [facility] [address] [place] [phone] Hermelinda Katz RN NOT TAKEN UNDER HOME CARE 03/18/2025 3:00 PM CDT Office Visit [facility] [address] [place] [address] [address] [place] [address] Hernesto Jolly MBChB Follow Up (3 month follow up / labs / echo prior. ) 03/18/2025 1:36 PM CDT - 03/18/2025 11:59 PM CDT Hospital Encounter [facility] [address] [place] [address] Hernesto Jolly MBChB HFrEF (heart failure with reduced ejection fraction) (HC) 03/18/2025 1:27 PM CDT - 03/18/2025 1:35 PM CDT Hospital Encounter [facility] [address] [facility] [place] [address] HFrEF (heart failure with reduced ejection fraction) (HC) 03/18/2025 Home Care Visit [facility] [address] [place] [address] Hermelinda Katz, ADALGISA CARE COORDINATION 03/18/2025 Travel 03/18/2025 Home Care Visit [facility] [address] [place] [address] Valentine Castillo, ADALGISA CARE COORDINATION 03/18/2025 Patient Outreach [facility] [address] [place] [address] Belinda Fraser, RN Hospital F/U; Primary RN Care Management (LACE 74 ) 03/18/2025 Telephone [facility] [address] [place] [address] Brenton Estrada MD Care Coordination (OV today w/ Dr. Jolly w/ echo/labs.) 03/16/2025 Travel 03/15/2025 Telephone [facility] [address] [place] [address] Lakesha Khan MD Questions 03/14/2025 Travel 03/12/2025 1:41 PM CDT - 03/17/2025 12:40 PM CDT Hospital Encounter [facility] [address] [facility] [place] [address] Jakub Albright MD Hospitalists, [facility] Wolfgang, MD Elizabeth Espinal, MD Promise Jurado, MD Pranay Hernandez, JOHNNIE Giles Syncope, unspecified syncope type (Primary Dx); Hypotension, unspecified hypotension type; Congestive heart failure, unspecified HF chronicity, unspecified heart failure type (HC); Syncope and collapse; Impaired mobility; Acute HFrEF (heart failure with reduced ejection fraction) (HC); Spinal stenosis of lumbar region with neurogenic claudication; Chronic HFrEF (heart failure with reduced ejection fraction) (HC) Discharge Disposition: Home Health 03/12/2025 8:08 AM CDT - 03/12/2025 1:40 PM CDT Hospital Encounter [facility] [address] [place] [address] 03/12/2025 Telephone [facility] [address] [facility] [address] [place] [phone] Hernesto Jolly, [facility] [place] dizzy / falls 03/12/2025 Travel 03/11/2025 Nurse Triage [facility] [address] [place] [address] Lakesha Khan MD Difficulty Breathing 03/11/2025 Telephone [facility] [address] [place] [address] Sancho Madrid MD Questions 03/11/2025 Travel 03/10/2025 10:50 AM CDT Office Visit [facility] [address] [place] [address] Lakesha Khan MD Serious Illness Conversation; Hospital F/U (Patient states he still can't breathe. Patient states arechiga suggested he sees a sporting goods salesperson for breathing. Patient states his lasix is now at 40 mg.) 03/10/2025 8:11 AM CDT - 03/10/2025 11:59 PM CDT Hospital Encounter [facility] [address] [place] [address] 03/10/2025 Travel 03/08/2025 7:58 AM CDT - 03/08/2025 11:59 PM CDT Hospital Encounter [facility] [address] [place] [address] 03/08/2025 Travel 03/06/2025 Travel 03/06/2025 Telephone [facility] [address] [facility] [address] [place] [phone] Hernesto Jolly, [facility] [place] Concerns 03/05/2025 8:07 AM CDT - 03/05/2025 11:59 PM CDT Hospital Encounter [facility] [address] [place] [address] 03/05/2025 Travel 03/05/2025 Patient Outreach [facility] [address] [place] [address] Catalina Espinosa, RN Primary RN Care Management; Hospital F/U (Lace=74) 03/04/2025 Telephone [facility] [address] [place] [address] Lakesha Khan MD Appointment 02/27/2025 6:15 PM CDT - 03/04/2025 1:18 PM CDT Hospital Encounter [facility] [address] [place] [address] [facility] Hospitalists Of Nevin Herndon MD Ahmed, Hani, MBBS Anxiety (Primary Dx); Acute HFrEF (heart failure with reduced ejection fraction) (HC); Coronary atherosclerosis due to calcified coronary lesion of upper mattaponi artery; NSTEMI (non-ST elevated myocardial infarction) (HC) Discharge Disposition: Home Self Care 02/27/2025 Orders Only [facility] Scanner 1 scan: (1-Ord) [facility], XR CHEST 2V, 02/27/2025 02/27/2025 Travel 02/27/2025 Telephone [facility] [address] [facility] [address] [place] [phone] Chau Salgado MD Shortness Of Breath 02/26/2025 8:11 AM CDT - 02/26/2025 11:59 PM CDT Hospital Encounter [facility] [address] [place] [address] 02/26/2025 Travel 02/25/2025 12:40 PM CDT Office Visit [facility] [address] [place] [address] Lakesha Khan MD Hospital F/U (Patient states no chest pains breathing is still difficult. patient states he still isn't feeling the best.) 02/25/2025 Travel 02/24/2025 8:13 AM CDT - 02/24/2025 11:59 PM CDT Hospital Encounter [facility] [address] [place] [address] 02/24/2025 Travel 02/23/2025 11:00 AM CDT - 02/23/2025 11:59 PM CDT Hospital Encounter [facility] [address] [place] [address] Marva Palacios MD Cardiovascular symptoms; Ischemic cardiomyopathy; Platelets decreased; Troponin level elevated; NSTEMI (non-ST elevated myocardial infarction) (HC); Chronic systolic CHF (congestive heart failure) (HC); Coronary atherosclerosis due to calcified coronary lesion of upper mattaponi artery; ASCVD (arteriosclerotic cardiovascular disease); Moderate episode of recurrent major depressive disorder (HC) 02/23/2025 Travel 02/22/2025 Refill [facility] [address] [place] [address] Lakesha Khan MD Refill Request (Jardiance) 02/22/2025 Telephone [facility] [address] [place] [phone] Hernesto Jolly MBChB Appointment Questions 02/22/2025 Patient Outreach [facility] [address] [place] [address] Catalina Espinosa, ADALGISA Primary RN Care Management; Hospital F/U (Lace=62) 02/21/2025 Travel 02/19/2025 Travel 02/16/2025 11:56 PM CDT - 02/21/2025 1:00 PM CDT Hospital Encounter [facility] [address] [place] [address] [facility] Hospitalists Of [place], MD Simone Mejias Timothy Joseph Ngui, MD Schmidt, Maya Portillo MD NSTEMI (non-ST elevated myocardial infarction) (HC) (Primary Dx); Cardiovascular symptoms; SVT (supraventricular tachycardia) (HC); Dizziness; Bradycardia; Coronary atherosclerosis due to calcified coronary lesion of upper mattaponi artery; Acute HFrEF (heart failure with reduced ejection fraction) (HC) Discharge Disposition: Home Self Care 02/16/2025 Orders Only [facility] Scanner 1 scan: (1-Ord) [place], CHEST 1V PORTABLE, 02/16/2025 02/16/2025 Telephone [facility] [address] [facility] [address] [place] [address] Graham Cooper MD Inpatient Physician Call 02/16/2025 Travel 02/15/2025 Telephone [facility] [address] [facility] [address] [place] [phone] Hernesto Jolly [facility] Concerns (/) 02/12/2025 Travel 02/08/2025 Telephone [facility] [address] [place] [address] Lakesha Khan MD Questions 02/05/2025 Telephone [facility] [address] [place] [address] Sancho Madrid MD Results 02/04/2025 Refill [facility] [address] [place] [address] Lakesha Khan MD Refill Request (Freestyle Jordana 2 Sensor) 01/31/2025 Refill [facility] [address] [facility] [address] [place] [address] Tiffanie Warren NP Refill Request (Furosemide) 01/29/2025 7:15 AM CDT Ancillary Procedure [facility] [address] [place] [address] 01/28/2025 Travel 01/27/2025 8:30 AM CDT Office Visit [address] [address] Smiley Pelletier LICSW Follow Up 01/27/2025 Travel 01/23/2025 Travel 01/22/2025 Travel 01/15/2025 10:30 AM CDT Office Visit [address] [address] Smiley Pelletier LICSW Depression; Follow Up 01/15/2025 Travel 01/14/2025 Telephone [facility] [address] [place] [address] Lakesha Khan MD Colorectal Cancer Screening (Cologuard /No Result Obtained /) 01/11/2025 Refill [facility] [address] [place] [address] Lakesha Khan MD Refill Request (Clopidogrel) 01/10/2025 Travel 01/01/2025 9:30 AM CDT Office Visit [address] [address] Smiley Pelletier LICSW Anxiety 01/01/2025 Travel 12/27/2024 Travel 12/24/2024 10:00 AM CDT Office Visit [facility] [address] [place] [address] Sancho Madrid MD Musculoskeletal Problem (Follow up right shoulder pain, had ultrasound guided injection on 11/25/24) 12/23/2024 Travel from Last 3 Months Immunizations Immunization [...] or isolated from those around you? 0 03/12/2025 Financial Resource Strain Answer Date R ecorded Difficulty of Paying Living Expenses 3 11/29/2022 Difficulty of Paying Living Expenses Not on file 11/29/2022 Food Insecurity Answer Date Recorded Do you worry your food will run out before you are able to buy more? 1 03/12/2025 Transportation Needs Answer Date Record ed Does lack of transportation keep you from medica l appointments? 1 03/12/2025 Does lack of transportation keep you from work, meetings or getting things that you need? 1 03/12/2025 Housing Stability Answer Date Recorded What is your housing situation today? 1 03/12/2025 Interpersonal Safety Answer Date Record ed Are you being hit, kicked, p ushed or yelled at (see row info)? No 03/12/2025 Interpersonal Safety Abuse 12 - 18 Not on file 03/12/2025 Interpersonal Safety Ambulatory Vulnerability No t on file 03/12/2025 Utilities Answer Date Recorded Do you have trouble paying f or utilities (for example, heat, electricity, water, phone)? 1 03/12/2025 Sex and Gender Information Value Date Recorded Sex Assigned at Male 04/28/2021 10:10 PM CDT Legal Sex Male 6:41 AM TSO Gender Identity Male 04/28/2021 10:10 PM CDT Sexual Orientation Straight 04/28/2021 10 :10 PM CDT Occupation Industry Job Start Date Job End Date Not on file Not on file Not on file Not on file Obstetrics History Last Filed Vital Signs Vital Sign Reading Time Taken Comments Blood Pressure 97/62 03/22/2025 2:57 PM CDT Pulse 85 03/22/2025 2:57 PM CDT Temperature 36.2 C (97.2 F) 03/17/2025 9:15 AM CDT Respiratory Rate 18 03/16/2025 11:3 0 PM CDT Oxygen Saturation 98% 03/22/2025 2:57 PM CDT Inhaled Oxygen Concentration - - Weight 107.9 kg (237 lb 12.8 oz) 03/22/2025 2:57 PM CDT Height 188 cm (6' 2) 03/18/2025 2:44 PM CDT Body Mass Index 30.53 03/18/2025 2:44 PM CDT Plan of Treatment Upcoming Encounters Date Type Department Care Team (Late st Contact Info) Description 03/26/2025 8:30 AM CDT Appointment [facility] [address] [place] [address] 03/29/2025 8:30 AM CDT Appointment [facility] [address] [place] [address] 03/31/2025 8:30 AM CDT Appointment [facility] [address] [place] [address] 04/02/2025 8:30 AM CDT Appointment [facility] [address] [place] [address] 04/05/2025 8:30 AM CDT Appointment [facility] [address] [place] [address] 04/07/2025 8:30 AM CDT Appointment [facility] [address] [place] [address] 04/09/2025 8:30 AM CDT Appointment [facility] [address] [place] [address] 04/14/2025 8:30 AM CDT Appointment [facility] [address] [place] [address] 04/16/2025 8:30 AM CDT Appointment [facility] [address] [place] [address] 04/19/2025 8:30 AM CDT Appointment [facility] [address] [place] [address] 04/21/2025 8:30 AM CDT Appointment [facility] [address] [place] [address] 04/23/2025 8:30 AM CDT Appointment [facility] [address] [facility] [place] [address] 04/26/2025 8:30 AM CDT Appointment [facility] [address] [facility] [place] [address] 04/28/2025 8:30 AM CDT Appointment [facility] [address] [facility] [place] [address] 04/29/2025 Cardiac Device Check [facility] [phone] 04/30/2025 8:30 AM CDT Appointment [facility] [address] [facility] [place] [address] 05/03/2025 8:30 AM CDT Appointment [facility] [address] [facility] [place] [address] 05/05/2025 8:30 AM CDT Appointment [facility] [address] [place] [address] 05/06/2025 10:00 AM CDT Office Visit [facility] [address] [place] [address] Sancho Madrid MD [address] [place] [address] 05/07/2025 8:30 AM CDT Appointment [facility] [address] [facility] [place] [address] 05/10/2025 8:30 AM CDT Appointment [facility] [address] [place] [address] 05/12/2025 8:30 AM CDT Appointment [facility] [address] [place] [address] 05/14/2025 8:30 AM CDT Appointment [facility] [address] [place] [address] 05/17/2025 8:30 AM CDT Appointment [facility] [address] [place] [address] Health Maintenance Due Date Last Done Comments Influenza Vaccine (#1) 2025 , 05/24/2021, 05/20/2020, Additional history exists Medicare Wellness for age 65+ 11/13/2025 11/12/2024, 02/18/2023 Depression screening for age 12+ 02/25/2026 02/25/2025, 02/23/2025, 02/22/2025, Additional history exists BMI (ht and wt on same day) for age 18+ 03/18/2026 03/18/2025, 12/15/2024, 12/07/2024, Additional history exists Fecal testing sDNA-FIT (Cologuard) [...] Priority Date/Time Associated Diagnosis Comments SCAN-CARDIAC REHABILITATION 03/24/2025 8:23 AM CDT SCAN-CARDIAC REHABILITATION 03/22/2025 8:14 AM CDT SCAN-CARDIAC REHABILITATION 03/19/2025 8:20 AM CDT ECHO TTE LIMITED W CONTRAST W COLOR W DOPPLER Routine 03/18/2025 2:21 PM CDT HFrEF (heart failure with reduced ejection fraction) (HC) CORTISOL TOTAL FREDI 03/18/2025 1:35 PM CDT HFrEF (heart failure with reduced ejection fraction) (HC) Coronary artery disease involving upper mattaponi coronary artery of upper mattaponi heart without angina pectoris Dizziness PRO-BNP Today 03/18/2025 1:35 PM CDT HFrEF (heart failure with reduced ejection fraction) (HC) BASIC METABOLIC PANEL Today 03/18/2025 1:35 PM CDT HFrEF (heart failure with reduced ejection fraction) (HC) GLUCOSE METER Timed 03/17/2025 11:16 AM CDT GLUCOSE METER Timed 03/17/2025 7:45 AM CDT GLUCOSE METER Timed 03/16/2025 8:54 PM CDT GLUCOSE METER Timed 03/16/2025 5:07 PM CDT GLUCOSE METER Timed 03/16/2025 11:46 AM CDT GLUCOSE METER Timed 03/16/2025 7:55 AM CDT GLUCOSE METER Timed 03/15/2025 9:26 PM CDT GLUCOSE METER Timed 03/15/2025 4:59 PM CDT GLUCOSE METER Timed 03/15/2025 12:05 PM CDT GLUCOSE METER Timed 03/15/2025 7:40 AM CDT GLUCOSE METER Timed 03/14/2025 10:22 PM CDT GLUCOSE METER Timed 03/14/2025 5:36 PM CDT GLUCOSE METER Timed 03/14/2025 12:45 PM CDT GLUCOSE METER Timed 03/14/2025 7:31 AM CDT POTASSIUM Early AM 03/14/2025 6:27 AM CDT CREATININE Early AM 03/14/2025 6:27 AM CDT GLUCOSE METER Timed 03/13/2025 8:42 PM CDT GLUCOSE METER Timed 03/13/2025 4:45 PM CDT GLUCOSE METER Timed 03/13/2025 11:41 AM CDT XR CHEST 1 VIEW PORTABLE STAT 03/13/2025 11:25 AM CDT EKG 12 LEAD STAT 03/13/2025 8:56 AM CDT GLUCOSE METER Timed 03/13/2025 7:38 AM CDT HEMOGLOBIN Early AM 03/13/2025 7:09 AM CDT CREATININE Early AM 03/13/2025 7:09 AM CDT GLUCOSE METER Timed 03/12/2025 9:18 PM CDT TROPONIN T (HS) ONE TIME Timed 03/12/2025 4:[address] SPINE CERVICAL WO STAT 03/12/2025 4:[address] HEAD BRAIN WO STAT 03/12/2025 4:17 PM CDT XR CHEST 1 VIEW PORTABLE STAT 03/12/2025 2:39 PM CDT PRO-BNP STAT 03/12/2025 2:24 PM CDT TROPONIN T (HS) ACUTE W/2HR REFLEX STAT 03/12/2025 2:24 PM CDT HEPATIC FUNCTION PANEL STAT 2:24 PM CDT BASIC METABOLIC PANEL STAT 03/12/2025 2:24 PM CDT CBC W PLT NO DIFF STAT 03/12/2025 2:2 4 PM CDT EKG 12 LEAD STAT 03/12/2025 1:38 PM CDT SCAN-CARDIAC REHABILITATION 03/12/2025 8:18 AM CDT SCAN-CARDIAC STRIP 03/12/2025 12 :00 AM CDT SCAN-CARDIAC STRIP 03/12/2025 12 :00 AM CDT SCAN-CARDIAC STRIP 03/12/2025 12 :00 AM CDT BASIC METABOLIC PANEL Routine 03/10/2025 11:47 AM CDT Hospital discharge follow-up SCAN-CARDIAC REHABILITATION 03/10/2025 8:22 AM CDT SCAN-CARDIAC REHABILITATION 03/08/2025 8:17 AM CDT SCAN-CARDIAC REHABILITATION 03/05/2025 8:15 AM CDT SCAN CORRESP-EKG RESULTS 03/04/2025 1:04 PM CDT POTASSIUM Early AM 03/04/2025 9:27 AM CDT MAGNESIUM Early AM 03/04/2025 9:27 AM CDT GLUCOSE METER Timed 03/04/2025 7:34 AM CDT SCAN-CARDIAC STRIP 03/04/2025 2: 27 AM CDT GLUCOSE METER Timed 03/03/2025 10:06 PM CDT SCAN-CARDIAC STRIP 03/03/2025 5: 37 PM CDT GLUCOSE METER Timed 03/03/2025 5:09 PM CDT TROPONIN T (HS) ONE TIME Timed 03/03/2025 5:05 PM CDT TROPONIN T (HS) ACUTE W/2HR REFLEX Timed 03/03/2025 2:52 PM CDT TROPONIN T (HS) ONE TIME STAT 03/03/2025 2:52 PM CDT EKG 12 LEAD STAT 03/03/2025 2:06 PM CDT XR CHEST 1 VIEW PORTABLE STAT 03/03/2025 1:50 PM CDT EKG 12 LEAD STAT 03/03/2025 1:03 PM CDT GLUCOSE METER Timed 03/03/2025 11:43 AM CDT GLUCOSE METER Timed 03/03/2025 8:39 AM CDT CREATININE FREDI 03/03/2025 7:16 AM CDT POTASSIUM Early AM 03/03/2025 7:16 AM CDT MAGNESIUM Early AM 03/03/2025 7:16 AM CDT SCAN-CARDIAC STRIP 03/03/2025 12 :26 AM CDT GLUCOSE METER Timed 03/02/2025 9:33 PM CDT GLUCOSE METER Timed 03/02/2025 4:53 PM CDT GLUCOSE METER Timed 03/02/2025 11:55 AM CDT APTT Today 03/02/2025 10:17 AM CDT CREATININE Today 03/02/2025 8:48 AM CDT POTASSIUM Early AM 03/02/2025 8:48 AM CDT MAGNESIUM Early AM 03/02/2025 8:48 AM CDT HEMOGLOBIN Early AM 03/02/2025 8:48 AM CDT PLATELET COUNT Early AM 03/02/2025 8:48 AM CDT GLUCOSE METER Timed 03/02/2025 8:31 AM CDT APTT Today 03/01/2025 9:38 PM CDT GLUCOSE METER Timed 03/01/2025 9:15 PM CDT GLUCOSE METER Timed 03/01/2025 5:06 PM CDT APTT Timed 03/01/2025 3:15 PM CDT ECHO TTE LIMITED W CONTRAST W COLOR W DOPPLER Routine 03/01/2025 2:25 PM CDT SCAN CORRESP-EKG RESULTS 03/01/2025 1:36 PM CDT POTASSIUM Timed 03/01/2025 12:17 PM CDT GLUCOSE METER Timed 03/01/2025 11:58 AM CDT GLUCOSE METER Timed 03/01/2025 7:51 AM CDT APTT Timed 03/01/2025 7:03 AM CDT BASIC METABOLIC PANEL Early AM 03/01/2025 7:03 AM CDT D-DIMER,QUANTITATIVE Early AM 03/01/2025 7:03 AM CDT MAGNESIUM Early AM 03/01/2025 7:03 AM CDT HEMOGLOBIN Early AM 03/01/2025 7:03 AM CDT PLATELET COUNT Early AM 03/01/2025 7:03 AM CDT APTT Timed 02/28/2025 9:44 PM CDT GLUCOSE METER Timed 02/28/2025 9:08 PM CDT SCAN-CARDIAC STRIP 02/28/2025 7: 32 PM CDT GLUCOSE METER Timed 02/28/2025 5:00 PM CDT EXTRA TUBE BLUE Today 02/28/2025 2:12 PM CDT POTASSIUM Timed 02/28/2025 1:20 PM CDT APTT Timed 02/28/2025 1:20 PM CDT GLUCOSE METER Timed 02/28/2025 1:01 PM CDT SCAN-CARDIAC STRIP 02/28/2025 8: 39 AM CDT GLUCOSE METER Timed 02/28/2025 7:39 AM CDT LIPASE FREDI 02/28/2025 5:06 AM CDT APTT Timed 02/28/2025 5:06 AM CDT MAGNESIUM Early AM 02/28/2025 5:06 AM CDT CREATININE Early AM 02/28/2025 5:06 AM CDT POTASSIUM Early AM 02/28/2025 5:06 AM CDT SODIUM Early AM 02/28/2025 5:06 AM CDT HEMOGLOBIN Early AM 02/28/2025 5:06 AM CDT PLATELET COUNT Early AM 02/28/2025 5:06 AM CDT SCAN-CARDIAC STRIP 02/28/2025 4: 01 AM CDT XR CHEST 1 VIEW PORTABLE STAT 02/28/2025 12:45 AM CDT EKG 12 LEAD STAT 02/28/2025 12:28 AM CDT SCAN-CARDIAC STRIP 02/28/2025 12 :21 AM CDT CREATININE Timed 02/27/2025 10:55 PM CDT HEPATIC FUNCTION PANEL Timed 10:55 PM CDT LACTATE VENOUS STAT 02/27/2025 10:55 PM CDT GLUCOSE METER Timed 02/27/2025 10:05 PM CDT TROPONIN T (HS) ONE TIME Timed 02/27/2025 9:09 PM CDT LACTATE VENOUS STAT 02/27/2025 9:09 PM CDT APTT Timed 02/27/2025 9:09 PM CDT GLUCOSE METER Timed 02/27/2025 7:28 PM CDT EKG 12 LEAD STAT 02/27/2025 7:16 PM CDT EXTRA TUBE LIGHT GREEN Today 7:14 PM CDT HEPATIC FUNCTION PANEL FREDI 6:54 PM CDT PRO-BNP Today 02/27/2025 6:54 PM CDT BASIC METABOLIC PANEL Timed 02/27/2025 6:54 PM CDT TROPONIN T (HS) ACUTE W/2HR REFLEX Today 02/27/2025 6:54 PM CDT HEMOGLOBIN FREDI 02/27/2025 6:54 PM CDT PLATELET COUNT FREDI 02/27/2025 6:54 PM CDT APTT FREDI 02/27/2025 6:54 PM CDT PROTIME-INR FREDI 02/27/2025 6:54 PM CDT SCAN-CARDIAC STRIP 02/27/2025 6: 32 PM CDT SCAN-RADIOLOGY REPORT 02/27/2025 12:00 AM CDT SCAN-CARDIAC REHABILITATION 02/26/2025 8:18 AM CDT PRO-BNP [...] 8:30 AM CDT Screening for colon cancer LIPID PANEL [facility] 08/02/2024 8:07 PM TSO ANTI HCV Routine 04/16/2017 9:14 AM CDT Encounter for hepatitis C screening test for low risk patient from Last 3 Months or Most Recently Relevant to Health Maintenance Results * SCAN-CARDIAC REHABILITATION (03/24/2025 8:23 AM CDT) Only the most recent of9 resultswithin the time period is included. us Scanner OTHER Final Result * ECHO TTE LIMITED W CONTRAST W COLOR W DOPPLER (03/18/2025 2:21 PM CDT) Only the most recent of2 resultswithin the time period is included. AORTIC VALVE MEAN PG 5 mmHg EJECTION FRACTION 21 % LVEDD 6.5 cm EJECTION FRACTION 25 - 30% Anatomical Region Laterality Modality Ultrasound, Comp uted Tomography 03/18/2025 1:35 PM CDT Narrative 03/18/2025 3:28 PM CDT ECHOCARDIOGRAM DALE LUNA : 1955 69 years Study Date: 03/18/2025 1:35:51 PM Gender: M BP: 104/73 mmHg Height: 188.00 cm BSA: 2.30 m Weight: 104.00 kg Tech: NKM Referring MD: HERNESTO JOLLY Site: [facility] Reading Location: [facility] Patient Location: Outpatient. Procedure: Limited Echo w/ Contrast, Color Doppler and Limited Spectral Doppler. Indication for study: HFrEF Cardiac Rhythm: Regular and with premature ventricular contractions.Study quality: Fair. Imaging limitations: This study was subject to imaging limitations due to a prominent lung artifact. Final Impressions: Limited Echocardiogram performed 1. Moderate to severely increased LV size, severely reduced global systolic function with an estimated EF of 25 - 30%. 2. Multiple segmental abnormalities exist. See findings. 3. Right ventricular cavity size is normal, global systolic RV function is borderline. 4. The aortic valve is sclerotic, and trivial regurgitation. 5. The mitral valve is sclerotic, mild mitral regurgitation. 6. Echo contrast was administered to enhance visualization of all left ventricular segments. 7. No pericardial effusion. Comparison Compared to prior exam images and report of 03/01/25: - The left ventricular function is appears similar. Chamber Sizes and Function Moderate to severely increased left ventricular size, severely reduced global systolic function with an estimated EF of 25 - 30%. Right ventricular cavity size is normal, global systolic RV function is borderline. RV wall thickness is normal. The pulmonary artery is not well visualized. The entire apex is akinetic. The anterior septum, inferior septum, mid posterior segment, mid lateral segment, and mid anterior segment are hypokinetic. Valves, RV Pressures and Diastolic Function The aortic valve is sclerotic, and trivial regurgitation. The mitral valve is sclerotic, mild mitral regurgitation. The mitral valve peak velocity is 1.54 m/s and the mean gradient is 5.0 mmHg. Mitral annular calcification is present. The tricuspid valve is normal in structure, mild tricuspid regurgitation. Unable to assess right ventricular systolic pressure. The pulmonic valve is not well visualized. Masses, Effusion, Shunts There is no pericardial effusion. The inferior vena cava is not well visualized, respiratory size variation not well visualized. MEASUREMENTS AND CALCULATIONS 2-D Measurements and LV Function: LVID (d) 6.5 cm HR 79 bpm IVS (d) 1.0 cm RV Basal Diam 4.5 cm LVPW (d) 1.1 cm Ao Sinus 3.7 cm Ao Sinus ULN 4.2 cm * Asc Ao 4.2 cm Asc Ao ULN 4.2 cm * LA 5.0 cm * Input BSA outside of range, reported values correspond to BSA = 2.1 Diastology: Mitral E Peak 1.34 m/s Aortic Valve: Vmax 1.5 m/s Max PG 9 mmHg VTI 0.26 m Mean PG 5 mmHg LVOT V max 0.6 m/s Dim Index 0.41 LVOT VTI 0.11 m Mitral Valve: MV Mean G 5 mmHg Tricuspid Valve and estimated PA pressures: TAPSE 1.4 cm Contrast documentation: 5.0 ml diluted Definity, lot #[id number] was administered peripherally to enhance visualization of all left ventricular segments. . This study was interpreted by an IAC accredited facility. Final Procedure Note Drake Melchor MD - 03/18/2025 ECHOCARDIOGRAM DALE LUNA : 1955 69 years Study Date: 03/18/2025 1:35:51 PM Gender: M BP: 104/73 mmHg Height: 188.00 cm BSA: 2.30 m Weight: 104.00 kg Tech: JEMAL Referring MD: HERNESTO JOLLY Site: [facility] Reading Location: [facility] Patient Location: Outpatient. Procedure: Limited Echo w/ Contrast, Color Doppler and Limited SpectralDoppler. Indication for study: HFrEF Cardiac Rhythm: Regular and with premature ventricular contractions.Studyquality: Fair. Imaging limitations: This study was subject to imaging limitations due toa prominent lung artifact. Final Impressions: Limited Echocardiogram performed 1. Moderate to severely increased LV size, severely reduced globalsystolic function with an estimated EF of 25 - 30%. 2. Multiple segmental abnormalities exist. See findings. 3. Right ventricular cavity size is normal, global systolic RV functionis borderline. 4. The aortic valve is sclerotic, and trivial regurgitation. 5. The mitral valve is sclerotic, mild mitral regurgitation. 6. Echo contrast was administered to enhance visualization of all leftventricular segments. 7. No pericardial effusion. Comparison Compared to prior exam images and report of 03/01/25: - The left ventricular function is appears similar. Chamber Sizes and Function Moderate to severely increased left ventricular size, severely reducedglobal systolic function with an estimated EF of 25 - 30%. Rightventricular cavity size is normal, global systolic RV function isborderline. RV wall thickness is normal. The pulmonary artery is not wellvisualized. The entire apex is akinetic. The anterior septum, inferiorseptum, mid posterior segment, mid lateral segment, and mid anteriorsegment are hypokinetic. Valves, RV Pressures and Diastolic Function The aortic valve is sclerotic, and trivial regurgitation. The mitral valveis sclerotic, mild mitral regurgitation. The mitral valve peak velocity is1.54 m/s and the mean gradient is 5.0 mmHg. Mitral annular calcificationis present. The tricuspid valve is normal in structure, mild tricuspidregurgitation. Unable to assess right ventricular systolic pressure. Thepulmonic valve is not well visualized. Masses, Effusion, Shunts There is no pericardial effusion. The inferior vena cava is not wellvisualized, respiratory size variation not well visualized. MEASUREMENTS AND CALCULATIONS 2-D Measurements and LV Function: LVID (d) 6.5 cm HR79 bpm IVS (d) 1.0 cm RV Basal Diam4.5 cm LVPW (d) 1.1 cm Ao Sinus 3.7 cm Ao Sinus ULN 4.2 cm * Asc Ao 4.2 cm Asc Ao ULN 4.2 cm * LA 5.0 cm * Input BSA outside of range, reported values correspond to BSA = 2.1 Diastology: Mitral E Peak 1.34 m/s Aortic Valve: Vmax 1.5 m/s Max PG 9 mmHg VTI 0.26 m Mean PG 5 mmHg LVOT V max 0.6 m/s Dim Index 0.41 LVOT VTI 0.11 m Mitral Valve: MV Mean G 5 mmHg Tricuspid Valve and estimated PA pressures: TAPSE 1.4 cm Contrast documentation: 5.0 ml diluted Definity, lot #[id number] wasadministered peripherally to enhance visualization of all left ventricularsegments. . This study was interpreted by an IAC accredited facility. Final [facility] ECHO ORD Final Result * CORTISOL TOTAL (03/18/2025 1:35 PM CDT) CORTISOL,TOTAL 6.8 ug/dL 03/18/2025 9:43 PM CDT [facility] Blood BLOOD SPECIMEN / Unknown Venipuncture / Unknown 03/18/2025 1:35 PM CDT 03/18/2025 1:35 PM CDT [facility] - 03/18/2025 9:43 PM CDT Cortisol Morning Hours 6:00 AM - 10:00 AM (4.8-19.5 ug/dL) Cortisol Afternoon Hours 4:00 PM - 8:00 PM (2.5-11.9 ug/dL) Biotin supplements may cause clinically significant interference for this test assay. If interference is suspected, it is strongly recommended that biotin is discontinued for at least one week prior to retesting. [facility] CHEMISTRY Final Result [facility] [address] [place] [address], * (ABNORMAL) PRO-BNP (03/18/2025 1:35 PM CDT) Only the most recent of5 resultswithin the time period is included. PRO-BNP 3,382(H) <125 pg/mL 03/18/2025 2:17 PM CDT [facility] Blood BLOOD SPECIMEN / Unknown Venipuncture / Unknown 03/18/2025 1:35 PM CDT 03/18/2025 1:35 PM CDT [facility] - 03/18/2025 2:17 PM CDT The following cut-points have been suggested [...] of 72% for acute congestive heart failure. Hernesto Jolly [facility] SEND OUTS Final Result [facility] [address] [id number] * (ABNORMAL) BASIC METABOLIC PANEL (03/18/2025 1:35 PM CDT) Only the most recent of10 resultswithin the time period is included. SODIUM 138 136 - 145 mmol/L 03/18/2025 2:15 PM CDT [facility] POTASSIUM 4.4 3.5 - 5.1 mmol/L 03/18/2025 2:15 PM CDT [facility] CHLORIDE 104 98 - 107 mmol/L 03/18/2025 2:15 PM CDT [facility] CO2,TOTAL 25 22 - 29 mmol/L 03/18/2025 2:15 PM CDT [facility] ANION GAP 9 5 - 18 03/18/2025 2:15 PM CDT [facility] GLUCOSE 198(H) 70 - 99 mg/dL 03/18/2025 2:15 PM CDT [facility] CALCIUM 8.9 8.8 - 10.4 mg/dL 03/18/2025 2:15 PM CDT [facility] Comment: Reference ranges for this test were updated on 06/16/2024 to reflect our healthy population more accurately. Reference range changes are not retroactively applied to results, but previous results using the same methodology can be interpreted in the context of the new reference range. BUN 26(H) 8 - 23 mg/dL 03/18/2025 2:15 PM CDT [facility] CREATININE 1.39(H) 0.70 - 1.20 mg/dL 03/18/2025 2:15 PM CDT [facility] BUN/CREAT RATIO 19 10 - 20 2:15 PM CDT [facility] eGFR 55(L) >90 mL/min/1. 73m2 03/18/2025 2:15 PM CDT [facility] Comment:As of 2021, eG FR is calculated by the CKD-EPI creatinine equation without race adjustment. eGFR can be influenced by muscle mass, exercise, and diet. The reported eGFR is an estimation only and is only applicable if the renal function is stable. Blood BLOOD SPECIMEN / Unknown Venipuncture / Unknown 03/18/2025 1:35 PM CDT 03/18/2025 1:35 PM CDT Hernesto Jolly [facility] CHEMISTRY Final Result Performing Organization Address City/[facility]/ZIP Co de Phone Number [address] [address] * (ABNORMAL) GLUCOSE METER (03/17/2025 11:16 AM CDT) Only the most recent of57 resultswithin the time period is included. GLUCOSE METER 146(H) 65 - 100 mg/dL 03/17/2025 12:09 PM CDT [facility] Blood BLOOD SPECIMEN / Unknown 03/17/2025 11:16 AM CDT 03/17/2025 12:09 PM CDT Radha Pires MBBS CHEMISTRY Diamond l Result Performing Organization Address City/[facility]/ZIP Co de Phone Number [address] [address] * POTASSIUM (03/14/2025 6:27 AM CDT) Only the most recent of7 resultswithin the time period is included. POTASSIUM 4.2 3.5 - 5.1 mmol/L 03/14/2025 7:08 AM CDT [facility] Blood BLOOD SPECIMEN / Unknown Butterfly / Unknown 03/14/2025 6:27 AM CDT 03/14/2025 6:44 AM CDT Liliana Johnson MD CHEMISTRY Final Result Performing Organization Address [facility] de Phone Number [address] [address] * (ABNORMAL) CREATININE (03/14/2025 6:27 AM CDT) Only the most recent of6 resultswithin the time period is included. [facility] eGFR 65(L) >90 mL/min/1.7 3m2 03/14/2025 7:08 AM CDT [facility] Comment:As of 2021, eG FR is calculated by the CKD-EPI creatinine equation without race adjustment. eGFR can be influenced by muscle mass, exercise, and diet. The reported eGFR is an estimation only and is only applicable if the renal function is stable. CREATININE 1.22(H) 0.70 - 1.20 mg/dL 03/14/2025 7:08 AM CDT [facility] Blood BLOOD SPECIMEN / Unknown Butterfly / Unknown 03/14/2025 6:27 AM CDT 03/14/2025 6:44 AM CDT Liliana Johnson MD CHEMISTRY Final Result Performing Organization Address [facility] Co de Phone Number [address] [address] * XR CHEST 1 VIEW PORTABLE (03/13/2025 11:25 AM CDT) Only the most recent of4 resultswithin the time period is included. Anatomical Region Laterality Modality HEART, THORAX, CHEST Digital Rad iography 03/13/2025 11:4 5 AM CDT Narrative 03/13/2025 11:45 AM CDT For Patients: As a result of the Cures Act, medical imaging exams and procedure reports are released immediately into your electronic medical record. You may view this report before your referring provider. If you have questions, please contact your health care provider. Shortness of breath. COMPARISON: Portable AP chest March 12, 2025. TECHNIQUE: Portable AP chest. FINDINGS: Normal size cardiac silhouette. No acute pulmonic infiltrates or CHF. No pneumothorax or pleural effusion. Old healed fractures bilateral ribcage. Impression: No acute pathology. Dictated by Vernon Macedo MD @ Mar 13 2025 11:45AM (Electronically Signed) [email or web address] Procedure Note Vernon Macedo MBBS - 03/13/2025 For Patients: As a result of the s Act, medical imagingexams and procedure reports are released immediately into your electronicmedical record. You may view this report before your referring provider.If you have questions, please contact your health care provider. Shortness of breath. COMPARISON: Portable AP chest March 12, 2025. TECHNIQUE: Portable AP chest. FINDINGS: Normal size cardiac silhouette. No acute pulmonic infiltrates or CHF. Nopneumothorax or pleural effusion. Old healed fractures bilateralribcage. Impression: No acute pathology. Dictated by Vernon Macedo MD @ Mar 13 2025 11:45AM (Electronically Signed) [email or web address] Liliana Johnson MD GENERAL IMAGING Final Result * EKG 12 LEAD (03/13/2025 8:56 AM CDT) Only the most recent of16 resultswithin the time period is included. Interpretation Sinus tachycardia with 1st degree A-V block Right bundle branch block Inferior infarct , age undetermined T wave abnormality, consider lateral ischemia Abnormal ECG BEYOND NOW Ventricular Rate 101 BPM BEYOND NOW Atrial Rate 101 BPM BEYOND NOW P-R Interval 230 ms BEYOND NOW QRS Duration 134 ms BEYOND NOW QT 386 ms BEYOND NOW QTc 500 ms BEYOND NOW P [place] 33 degrees BEYOND NOW R [place] 254 degrees BEYOND NOW T [place] 85 degrees BEYOND NOW 03/13/2025 8:56 AM CDT 03/17/2025 2:30 PM CDT us Faye Oliveros RN EKG ORD Final Result Performing Organization Address City/[facility]/ZIP Co de Phone Number BEYOND NOW [place], [place] * HEMOGLOBIN (03/13/2025 7:09 AM CDT) Only the most recent of6 resultswithin the time period is included. HEMOGLOBIN 13.6 13.5 - 17.5 g/dL 03/13/2025 7:21 AM CDT [facility] MCV 87 80 - 100 fL 03/13/2025 7:21 AM CDT [facility] Blood BLOOD SPECIMEN / Unknown Capillary / Unknown 03/13/2025 7:09 AM CDT 03/13/2025 7:16 AM CDT us Elsa Ash NP HEMATOLOGY Final Result Performing Organization Address [facility] Co de Phone Number [address] [address] * (ABNORMAL) TROPONIN T (HS) ONE TIME (03/12/2025 4:30 PM CDT) Only the most recent of9 resultswithin the time period is included. TROPONIN T HS 42(H) 6-15 ng/L ng/L 03/12/2025 4:53 PM CDT [facility] Blood BLOOD SPECIMEN / Unknown Non-Lab Venipuncture / Unknown 03/12/2025 4:30 PM CDT 03/12/2025 4:35 PM CDT us Jakub Albright MD CHEMISTRY Final Re sult Performing Organization Address [facility] Co de Phone Number [address] [phone] * CT SPINE CERVICAL WO (03/12/2025 4:18 PM CDT) Anatomical Region Laterality Modality CERVICAL SPINE, NECK, Spine Comp uted Tomography 03/12/2025 4:35 PM CDT Narrative 03/12/2025 4:35 PM CDT For Patients: As a result of the Cures Act, medical imaging exams and procedure reports are released immediately into your electronic medical record. You may view this report before your referring provider. If you have questions, please contact your health care provider. Indication: Fall Technique: Noncontrast axial CT of the cervical spine with coronal and sagittal reformats. Comparison: MRI cervical spine 01/29/2025 Findings: Remote postsurgical changes of C5-C7 spinal fusion, with mature bony ankylosis across these levels well as well as across C3-C4. Straightening of the normal cervical lordosis. No evidence of traumatic subluxation. No acute fracture identified. Scattered spondylosis without evidence of high-grade spinal canal stenosis. No suspicious findings in the paravertebral soft tissues. No pulmonary apical pneumothorax. Impression: 1. No evidence of acute fracture or traumatic malalignment in the cervical spine. Please note that all CT scans at this facility use dose modulation, iterative reconstruction, and/or weight-based dosing when appropriate to reduce radiation dose to as low as reasonably achievable. Dictated by Lolis Orr MD @ 03/12/2025 4:35:12 PM (Electronically Signed) Procedure Note Lolis Orr, - 03/12/2025 For Patients: As a result of the Cures Act, medical imagingexams and procedure reports are released immediately into your electronicmedical record. You may view this report before your referring provider.If you have questions, please contact your health care provider. Indication: Fall Technique: Noncontrast axial CT of the cervical spine with coronal and sagittalreformats. Comparison: MRI cervical spine 01/29/2025 Findings: Remote postsurgical changes of C5-C7 spinal fusion, with mature bonyankylosis across these levels well as well as across C3-C4. Straighteningof the normal cervical lordosis. No evidence of traumatic subluxation. Noacute fracture identified. Scattered spondylosis without evidence ofhigh-grade spinal canal stenosis. No suspicious findings in theparavertebral soft tissues. No pulmonary apical pneumothorax. Impression: 1. No evidence of acute fracture or traumatic malalignment in the cervicalspine. Please note that all CT scans at this facility use dose modulation,iterative reconstruction, and/or weight-based dosing when appropriate toreduce radiation dose to as low as reasonably achievable. Dictated by Lolis Orr MD @ 03/12/2025 4:35:12 PM (Electronically Signed) us Jakub Albright MD CT Final Re sult * CT HEAD BRAIN WO (03/12/2025 4:17 PM CDT) Anatomical Region Laterality Modality HEAD, BRAIN Computed Tomogra phy 03/12/2025 4:32 PM CDT Impressions 03/12/2025 4:32 PM CDT 1. No skull fracture or acute intracranial hemorrhage identified. Please note that all CT scans at this facility use dose modulation, iterative reconstruction, and/or weight-based dosing when appropriate to reduce radiation dose to as low as reasonably achievable. Dictated by Lolis Orr MD @ 03/12/2025 4:32:14 PM (Electronically Signed) Narrative 03/12/2025 4:32 PM CDT For Patients: As a result of the Cures Act, medical imaging exams and procedure reports are released immediately into your electronic medical record. You may view this report before your referring provider. If you have questions, please contact your health care provider. INDICATION: Fall TECHNIQUE: Noncontrast axial CT of the head. Coronal and sagittal reformats. Bone and soft tissue algorithms. COMPARISON: CT head 08/11/2024 FINDINGS: The ventricles and cortical sulci are stable in configuration. No midline shift or mass effect. No acute intracranial hemorrhage or extra-axial fluid collection. Lagunas-white matter differentiation is grossly maintained. Calcific intracranial atherosclerotic plaquing. Midline structures are unremarkable. The calvarium appears grossly intact. Paranasal sinuses and mastoid air cells are clear. Orbits are unremarkable. Procedure Note Lolis Orr, - 03/12/2025 For Patients: As a result of the Cures Act, medical imagingexams and procedure reports are released immediately into your electronicmedical record. You may view this report before your referring provider.If you have questions, please contact your health care provider. INDICATION: Fall TECHNIQUE: Noncontrast axial CT of the head. Coronal and sagittal reformats. Bone andsoft tissue algorithms. COMPARISON: CT head 08/11/2024 FINDINGS: The ventricles and cortical sulci are stable in configuration. No midlineshift or mass effect. No acute intracranial hemorrhage or extra-axialfluid collection. Lagunas-white matter differentiation is grossly maintained.Calcific intracranial atherosclerotic plaquing. Midline structures areunremarkable. The calvarium appears grossly intact. Paranasal sinuses andmastoid air cells are clear. Orbits are unremarkable. IMPRESSION: 1. No skull fracture or acute intracranial hemorrhage identified. Please note that all CT scans at this facility use dose modulation,iterative reconstruction, and/or weight-based dosing when appropriate toreduce radiation dose to as low as reasonably achievable. Dictated by Lolis Orr MD @ 03/12/2025 4:32:14 PM (Electronically Signed) us Jakub Albright MD CT Final Re sult * (ABNORMAL) TROPONIN T (HS) ACUTE W/2HR REFLEX (03/12/2025 2:24 PM CDT) Only the most recent of4 resultswithin the time period is included. TROPONIN T HS 44(H) 6-15 ng/L ng/L 03/12/2025 2:57 PM CDT [facility] Blood BLOOD SPECIMEN / Unknown IV Start / Unknown 03/12/2025 2:24 PM CDT 03/12/2025 2:29 PM CDT Narrative [facility] - 03/12/2025 2:57 PM CDT hs-cTnT (Elecsys Troponin T Gen [...] risk in emergency department patient population. us Jakub Albright MD [place]MISTR[place] [address] * (ABNORMAL) CBC W PLT NO DIFF (03/12/2025 2:24 PM CDT) Only the most recent of2 resultswithin the time period is included. WHITE BLOOD COUNT 5.8 4.5 - 11.0 thou/cu mm 03/12/2025 2:31 PM CDT [facility] RED BLOOD COUNT 4.40 4.30 - 5.90 mil/cu mm 03/12/2025 2:31 PM CDT [facility] HEMOGLOBIN 12.1(L) 13.5 - 17.5 g/dL 03/12/2025 2:31 PM CDT [facility] HEMATOCRIT 38.4 37.0 - 53.0 % 03/12/2025 2:31 PM CDT [facility] MCV 87 80 - 100 fL 03/12/2025 2:31 PM CDT [facility] MCH 27.5 26.0 - 34.0 pg 03/12/2025 2:31 PM CDT [facility] MCHC 31.5(L) 32.0 - 36.0 g/dL 03/12/2025 2:31 PM CDT [facility] RDW 13.2 11.5 - 15.5 % 03/12/2025 2:31 PM CDT [facility] PLATELET COUNT 164 140 - 440 thou/cu mm 03/12/2025 2:31 PM CDT [facility] MPV 10.0 6.5 - 11.0 fL 03/12/2025 2:31 PM CDT [facility] NRBC 0.0 % 03/12/2025 2:31 PM CDT [facility] ABS NRBC 0.0 thou /cu mm 03/12/2025 2:31 PM CDT [facility] Blood BLOOD SPECIMEN / Unknown IV Start / Unknown 03/12/2025 2:24 PM CDT 03/12/2025 2:29 PM CDT us Jakub Albright MD HEMATOLOGY Final Re sult [place] [id number] * (ABNORMAL) HEPATIC FUNCTION PANEL (03/12/2025 2:24 PM CDT) Only the most recent of4 resultswithin the time period is included. ALBUMIN 3.9(L) 4.0 - 4.9 g/dL 03/12/2025 2:57 PM CDT [facility] PROTEIN,TOTAL 6.5 6.0 - 8.0 g/dL 03/12/2025 2:57 PM CDT [facility] BILIRUBIN,TOTAL 0.9 0.0 - 1.2 mg/dL 03/12/2025 2:57 PM CDT [facility] BILIRUBIN,DIRECT 0.5(H) 0.0 - 0.2 mg/dL 03/12/2025 2:57 PM CDT [facility] BILIRUBIN,INDIRE CT 0.4 0.2 - 0.8 mg/dL 03/12/2025 2:57 PM CDT [facility] ALK PHOSPHATASE 39(L) 40 - 129 IU/L 03/12/2025 2:57 PM CDT [facility] ALT (SGPT) 28 10 - 50 IU/L 03/12/2025 2:57 PM CDT [facility] AST (SGOT) 22 10 - 50 IU/L 03/12/2025 2:57 PM CDT [facility] Blood BLOOD SPECIMEN / Unknown IV Start / Unknown 03/12/2025 2:24 PM CDT 03/12/2025 2:29 PM CDT us Jakub Albright MD CHEMISTRY Final Re sult [facility] [address] [place] [address] * SCAN-CARDIAC STRIP (03/12/2025 12:00 AM CDT) Narrative 03/12/2025 12:00 AM CDT Ordered by an unspecified provider. us Other Clinical Staff OTHER Final Resul t * SCAN-CARDIAC STRIP (03/12/2025 12:00 AM CDT) Narrative 03/12/2025 12:00 AM CDT Ordered by an unspecified provider. us Other Clinical Staff OTHER Final Resul t * SCAN-CARDIAC STRIP (03/12/2025 12:00 AM CDT) Narrative 03/12/2025 12:00 AM CDT Ordered by an unspecified provider. us Other Clinical Staff OTHER Final Resul t * SCAN CORRESP-EKG RESULTS (03/04/2025 1:04 PM CDT) Only the most recent of3 resultswithin the time period is included. Narrative 03/04/2025 1:04 PM CDT Ordered by an unspecified provider. us Other Clinical Staff OTHER Final Resul t * MAGNESIUM (03/04/2025 9:27 AM CDT) Only the most recent of6 resultswithin the time period is included. MAGNESIUM 1.8 1.6 - 2.4 mg/dL 03/04/2025 10:14 AM CDT [facility] Blood BLOOD SPECIMEN / Unknown Non-Lab Venipuncture / Unknown 03/04/2025 9:27 AM CDT 03/04/2025 9:48 AM CDT us Breanna BLAIR CHEMISTRY Final Result Performing Organization Address [facility] Co de Phone Number [facility] [address] [place] [address], * SCAN-CARDIAC STRIP (03/04/2025 2:27 AM CDT) us Scanner OTHER Final Result * SCAN-CARDIAC STRIP (03/03/2025 5:37 PM CDT) us Scanner OTHER Final Result * SCAN-CARDIAC STRIP (03/03/2025 12:26 AM CDT) us Scanner OTHER Final Result * (ABNORMAL) APTT (03/02/2025 10:17 AM CDT) Only the most recent of10 resultswithin the time period is included. APTT 63(H) 25 - 36 sec 03/02/2025 11:01 AM CDT [facility] Blood BLOOD SPECIMEN / Unknown Butterfly / Unknown 03/02/2025 10:17 AM CDT 03/02/2025 10:35 AM CDT Narrative [facility] - 03/02/2025 11:01 AM CDT Therapeutic Range: 59-89 seconds us Breanna BLAIR HEMATOLOGY Final Result Performing Organization Address [facility] Co de Phone Number [facility] [address] [place] [address], * PLATELET COUNT (03/02/2025 8:48 AM CDT) Only the most recent of5 resultswithin the time period is included. PLATELET COUNT 203 140 - 440 thou/cu mm 03/02/2025 9:22 AM CDT [facility] MPV 9.9 6.5 - 11.0 fL 03/02/2025 9:22 AM CDT [facility] Blood BLOOD SPECIMEN / Unknown Venipuncture / Unknown 03/02/2025 8:48 AM CDT 03/02/2025 9:07 AM CDT Narrative [facility] - 03/02/2025 9:22 AM CDT Every morning while on IV heparin. Necessary every morning while on IV heparin. us Nevin Herndon MD HEMATOLOGY Final Res ult Performing Organization Address [facility]/ZIP Co de Phone Number [facility] [address] [place] [address], [place] * D-DIMER,QUANTITATIVE (03/01/2025 7:03 AM CDT) Only the most recent of2 resultswithin the time period is included. D-DIMER,QUANTI TATIVE 0.40 See comment FEU mcg/mL 03/01/2025 7:29 AM CDT [facility] Blood BLOOD SPECIMEN / Unknown Venipuncture / Unknown 03/01/2025 7:03 AM CDT 03/01/2025 7:13 AM CDT Narrative [facility] - 03/01/2025 7:29 AM CDT The cut off value for exclusion of Deep Vein Thrombosis and / or Pulmonary Embolism is 0.50 FEU mcg/mL For patients greater than 50 years of age the upper limit is age dependent and was calculated with the formula: (PATIENT AGE x 0.01) FEU mcg/mL = Upper limit of normal range us Breanna BLAIR HEMATOLOGY Final Result Performing Organization Address [facility]/ZIP Co de Phone Number [facility] [address] [place] [address], [place] * SCAN-CARDIAC STRIP (02/28/2025 7:32 PM CDT) us Scanner OTHER Final Result * EXTRA TUBE BLUE (02/28/2025 2:12 PM CDT) Blood BLOOD SPECIMEN / Unknown Non-Lab Venipuncture / Unknown 02/28/2025 2:12 PM CDT 02/28/2025 2:12 PM CDT Breanna BLAIR LABORATORY Final Result Performing Organization Address [facility] Co de Phone Number [facility] [address] [place] [phone], [place] * SCAN-CARDIAC STRIP (02/28/2025 8:39 AM CDT) Scanner OTHER Final Result * SODIUM (02/28/2025 5:06 AM CDT) SODIUM 139 136 - 145 mmol/L 02/28/2025 6:07 AM CDT [facility] Blood BLOOD SPECIMEN / Unknown Venipuncture / Unknown 02/28/2025 5:06 AM CDT 02/28/2025 5:26 AM CDT Nevin Herndon MD CHEMISTRY Final Res ult Performing Organization Address [facility] Co de Phone Number [facility] [address] [phone], [place] * (ABNORMAL) Lipase AM (02/28/2025 5:06 AM CDT) LIPASE 8.7(L) 13.0 - 60.0 IU/L 02/28/2025 1:31 PM CDT [facility] Blood BLOOD SPECIMEN / Unknown Venipuncture / Unknown 02/28/2025 5:06 AM CDT 02/28/2025 5:26 AM CDT Breanna BLAIR CHEMISTRY Final Result Performing Organization Address City/[facility] Co de Phone Number [facility] [address] [place] [phone], [place] * SCAN-CARDIAC STRIP (02/28/2025 4:01 AM CDT) us Scanner OTHER Final Result * SCAN-CARDIAC STRIP (02/28/2025 12:21 AM CDT) us Scanner OTHER Final Result * LACTATE VENOUS (02/27/2025 10:55 PM CDT) Only the most recent of4 resultswithin the time period is included. LACTATE,VENOUS 1.5 0.5 - 2.0 mmol/L 02/27/2025 11:50 PM CDT [facility] Blood BLOOD SPECIMEN / Unknown Butterfly / Unknown 02/27/2025 10:55 PM CDT 02/27/2025 11:22 PM CDT Karely Solano NP CHEMISTRY Final Result [facility] [address] [address], [place] * EXTRA TUBE LIGHT GREEN (02/27/2025 7:14 PM CDT) Blood BLOOD SPECIMEN / Unknown Non-Lab Venipuncture / Unknown 02/27/2025 7:14 PM CDT 02/27/2025 7:14 PM CDT us Nevin Herndon MD LABORATORY Final Res ult [facility] [address] [place] [address], [place] * PROTIME-INR (02/27/2025 6:54 PM CDT) Only the most recent of2 resultswithin the time period is included. INR 1.1 <1.3 02/27/2025 7:[address] [facility] PROTIME 12.4 10.6 - 12.4 sec 02/27/2025 7:[address] [facility] Blood BLOOD SPECIMEN / Unknown Venipuncture / Unknown 02/27/2025 6:54 PM CDT 02/27/2025 7:13 PM CDT Narrative [facility] - 02/27/2025 7:27 PM CDT Therapeutic Range 2.0-3.0 for most anticoagulated [...] if the patient is on UFH. us Nevin Herndon MD HEMATOLOGY Final Res ult [facility] [address] [place] [address], [place] * SCAN-CARDIAC STRIP (02/27/2025 6:32 PM CDT) us Scanner OTHER Final Result * SCAN-RADIOLOGY REPORT (02/27/2025 12:00 AM CDT) Only the most recent of2 resultswithin the time period is included. Anatomical Region Laterality Modality Other us Scanner OTHER Final Result * (ABNORMAL) HEMOGLOBIN A1C (02/25/2025 1:43 PM CDT) HEMOGLOBIN A1C 8.6(H) <5.7 % [facility] Comment: For someone without known diabetes, a [...] 1:43 PM CDT 02/25/2025 1:43 PM CDT us Lakesha Khan MD CHEMISTRY Final Resul t [facility] [address] [place] [address], [place] [phone] [facility] [address] [place] [address] * (ABNORMAL) CBC WITH AUTO DIFFERENTIAL (02/18/2025 8:08 AM CDT) [facility] WHITE BLOOD COUNT 6.8 4.5 - 11.0 thou/cu mm 02/18/2025 8:39 AM CDT [facility] RED BLOOD COUNT 4.47 4.30 - 5.90 mil/cu mm 02/18/2025 8:39 AM CDT [facility] HEMOGLOBIN 12.6(L) 13.5 - 17.5 g/dL 02/18/2025 8:39 AM CDT [facility] HEMATOCRIT 40.4 37.0 - 53.0 % 02/18/2025 8:39 AM CDT [facility] MCV 90 80 - 100 fL 02/18/2025 8:39 AM CDT [facility] MCH 28.2 26.0 - 34.0 pg 02/18/2025 8:39 AM CDT [facility] MCHC 31.2(L) 32.0 - 36.0 g/dL 02/18/2025 8:39 AM CDT [facility] RDW 13.8 11.5 - 15.5 % 02/18/2025 8:39 AM CDT [facility] PLATELET COUNT 152 140 - 440 thou/cu mm 02/18/2025 8:39 AM CDT [facility] MPV 10.1 6.5 - 11.0 fL 02/18/2025 8:39 AM CDT [facility] NRBC 0.0 % 02/18/2025 8:39 AM CDT [facility] ABS NRBC 0.0 thou /cu mm 02/18/2025 8:39 AM CDT [facility] % NEUT 80.0 % 02/18/2025 8:39 AM CDT [facility] % LYMPH 11.4 % 02/18/2025 8:39 AM CDT [facility] % MONO 7.5 % 02/18/2025 8:39 AM CDT [facility] % EOS 0.7 % 02/18/2025 8:39 AM CDT [facility] % BASO 0.1 % 02/18/2025 8:39 AM T [facility] % IMMATURE GRAN (METAS,MYELOS,TX OS) 0.3 % 02/18/2025 8:39 AM CDT [facility] ABSOLUTE NEUTROPHILS 5.4 1.7 - 7.0 thou/cu mm 02/18/2025 8:39 AM T [facility] ABSOLUTE LYMPHOCYTES 0.8(L) 0.9 - 2.9 thou/cu mm 02/18/2025 8:39 AM T [facility] ABSOLUTE MONOCYTES 0.5 <0.9 thou/cu mm 02/18/2025 8:39 AM T [facility] ABSOLUTE EOSINOPHILS 0.1 <0.5 thou/cu mm 02/18/2025 8:39 AM T [facility] ABSOLUTE BASOPHILS 0.0 <0.3 thou/cu mm 02/18/2025 8:39 AM T [facility] ABSOLUTE IMMATURE GRANULOCYTES(MET ,MYELOS,PROS) 0.0 <0.3 thou/cu mm 02/18/2025 8:39 AM [facility] Blood BLOOD SPECIMEN / Unknown Venipuncture / Unknown 02/18/2025 8:08 AM CDT 02/18/2025 8:35 AM CDT us Silvana Nichols MD HEMATOLOGY Fin al Result [facility] [address] [place] [address], * SCAN-CARDIAC STRIP (02/18/2025 12:27 AM CDT) [...] Tech: ELLIOTT Michaels MD: SILVANA NICHOLS Site: [facility] Reading Location: [facility] Patient Location: Inpatient. Procedure: 2D w/ Contrast, Color Doppler and Spectral Doppler. Indication for study: AK Cardiac Rhythm: Regular.Study quality: Technically limited. Final [...] diluted Definity, lot #[id number], [facility]# [id number] was administered peripherally to enhance visualization of all left ventricular segments. . This study was interpreted by an [facility] accredited facility. Final Procedure Note Addie Acuña, [facility] - 02/17/2025 ECHOCARDIOGRAM DALE LUNA : 1955 69 years Study Date: 02/17/2025 2:18:31 PM Gender: M BP: 109/73 mmHg Height: 188.00 cm BSA: 2.36 m Weight: 110.00 kg Tech: ELLIOTT Referring MD: SILVANA NICHOLS Site: [facility] Reading Location: [facility] Patient Location: Inpatient. Procedure: 2D w/ Contrast, Color Doppler and Spectral Doppler. Indication for study: AK Cardiac Rhythm: Regular.Study quality: Technically limited. Final [...] diluted Definity, lot #[id number], [facility]#[id number] was administered peripherally to enhance visualization of allleft ventricular segments. . This study was interpreted by an [facility] accredited facility. Final us Silvana Nichols MD ECHO ORD Fin al Result * (ABNORMAL) ACTIVATED CLOTTING TIME OFP017 ACT (02/17/2025 12:57 PM CDT) Only the most recent of4 resultswithin the time period is included. [facility] ACTIVATED CLOTTING TIME, POCT 227(H) 74 - 125 sec 02/17/2025 5:25 PM CDT [facility] Blood BLOOD SPECIMEN / Unknown 02/17/2025 12:57 PM CDT 02/17/2025 5:25 PM CDT us Silvana Nichols MD HEMATOLOGY Fin al Result [facility] [address] [place] [address], * CVL CORONARY ANGIOGRAM POSS PCI (02/17/2025 12:01 PM CDT) Anatomical Region Laterality Modality Other 02/17/2025 12:0 1 PM CDT Narrative Procedure Note Bao Cleaning MD - 02/19/2025 7:36 AM CDT DATE OF SERVICE: 02/17/2025 PREOPERATIVE DIAGNOSES: 1. 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 Results are automatically released to your [employer] ([facility]) accountonce available, in compliance with federal regulations. This means thatyou may see your results before your provider has had a chance to reviewthem. Please allow 2-3 business days for your provider to comment on theresults. MD CAMI PATEL/BRANDON/RENA/MISHEL VJID: [id number] TJID: [id number] us Provider Referring CV IMAGING Final Result * SCAN-CARDIAC STRIP (02/17/2025 8:33 AM CDT) us Scanner OTHER Final Result * SCAN-CARDIAC STRIP (02/17/2025 4:02 AM CDT) us Scanner OTHER Final Result * CVL CORONARY ANGIOGRAM POSS PCI (02/17/2025 2:20 AM CDT) Anatomical Region Laterality Modality Other 02/17/2025 2:20 AM CDT Narrative Transcriptions Chau Salgado MD - 02/17/2025 3:19 AM CDT [facility] Cardiac Catheterization Report Name: DALE LUNA Event Date: 02/17/2025 02:20 [employer] ID #: [id number] FAY #: [id number] Patient Class: Inpatient Diagnostic Physician: CHAU SALGADO [facility] Interventional Physician: CHAU SALGADO [facility] Referring Physician: Bao Matos MD Primary Care [...] for reduced LV systolic function Consent & Duffield Protocol The risks, benefits, and alternatives of the procedure were discussed withthe patient and written informed consent was obtained. Duffield protocol was followed. TIME OUT conducted just prior tostarting procedure confirmed patient identity, site/side, procedure,patient position, and availability of correct equipment and implants (ifapplicable). Staff Name Title CHAU SALGADO Diagnostic Sales And Service Technician Merry Knutson RN Mitzi Devi RN Abdi Stevenson CVT Monitor Anthony Burrell RTOlivier Well Service Floor Worker Melinda Cabrera CVT Scrub CHAU SALGADO Direct Care Supervisor Procedures ? Ultrasound Guided Vascular Access ? [...] 2 1st Diagonal Balloon BLLN EUPHORA RX [id number] 1 Proximal LAD Balloon BLLN EUPHORA RX [id number] Procedure Details Estimated Blood Loss: < 30 [...] ml Subcut Chau Salgado Mario 02:32 Heparin 72607 units IV Chau Salgado Rosette RN 02:32 Plavix 300 mg PO Chau Salgado Rosette RN I personally monitored the patient?s conscious sedation during theprocedure. Conscious sedation starts with the first sedation medication dose ofFentanyl or Versed and ends when the procedure is completed, the patientis stable for recovery status, and the physician or other qualified healthcare professional providing the sedation ends personal ovdxwyihvlwqtf-su-qkla time with the patient. The medications listed above were verbally ordered by me and read back tome as documented above. Refer to the procedure log report for additional case details. electronically signed on 02/17/2025 3:19:18 AM with status of Final Chau Salgado MD [facility] [address] [place] [address] (p) (f) us Provider Referring CV IMAGING Edited Result - Final * SDNA-FIT EXTERNAL (COLOGUARD) (02/01/2025 7:30 PM CDT) Only the most recent of2 resultswithin the time period is included. NONINV COLON CA DNA+OCC BLD SCRN STL-IMP Negative Negative 02/05/2025 8:13 AM CDT [employer] (CLIA #:[id number]) Comment: The Cologuard (TM) test was performed [...] screened with both Cologuard and colonoscopy. (Nick Wei et al, N Engl J Med 2014;370(14):1286- 1297) The normal value (reference range) for this assay is negative. COLOGUARD RE-SCREENING RECOMMENDATION: Periodic colorectal cancer screening is an important part of preventive healthcare for asymptomatic individuals at average risk for colorectal cancer. Following a negative Cologuard result, the [place] [employer] and U.S. Multi-Society Task Force screening guidelines recommend a Cologuard re-screening interval of 3 years. References: [place] [employer] Guideline for Colorectal Cancer Screening: https://www.cancer.org/cancer/nmazt-efhvig-mkhunw/lmsbxmknm-qiprdpktl-lsprxic/ac s-rec ommendations.html.; Orville DOVE, Parul BERNAL, Anayeli BENNETT, Colorectal Cancer Screening: Recommendations for Physicians and Patients from the U.S. Multi-Society Task Force on Colorectal Cancer Screening , Am J Gastroenterology 2017; 112:5822-9410. TEST DESCRIPTION: Composite algorithmic analysis of stool [...] screened with both Cologuard and colonoscopy. (Nick Preciado. et al, N Engl J Med 2014;370(14):0937-9804.) Cologuard may produce a false negative or false positive result (no colorectal cancer or precancerous polyp present at colonoscopy follow up). A negative Cologuard test result does not guarantee the absence of CRC or advanced adenoma (pre-cancer). The current Cologuard screening interval is every 3 years. ([place] [employer] and U.S. Multi-Society Task Force). Cologuard performance data in a 10,000 patient pivotal study using colonoscopy as the reference method can be accessed at the following location: www.STinser/results. Additional description of the Cologuard test process, warnings and precautions can be found at www.cologuard.com. Stool specimen (specimen) (Rectum) 02/01/2025 7:30 PM CDT 02/03/2025 11:49 AM CDT us Lakesha Khan MD URINE Final Resul t [employer] ([employer] #:[id number]) [address] [place] [address], * MR SPINE CERVICAL WO (01/29/2025 8:05 [...] C2-3: Shallow disc bulge. Ligamentum flavum thickening. Puhy-ux-uyesrdgq left facet arthropathy. Dkvo-ur-voaqtjct spinal canal narrowing. No neural foraminal narrowing. [...] advanced facet arthropathy. Mild spinal canal narrowing. Kwim-fn-orzlcosf bilateral neural foraminal narrowing. Edema right articulating [...] C2-3: Shallow disc bulge. Ligamentum flavum thickening. Bmge-sh-dwwhbitpkcov facet arthropathy. Cgto-gy-moibgekg spinal canal narrowing. No neuralforaminal narrowing. C3-4: [...] spurring.Moderately advanced facet arthropathy. Mild spinal canal narrowing.Xvyr-oc-jaknasqz bilateral neural foraminal narrowing. Edema rightarticulating facets. [...] Madrid MD MR Final Resu lt * (ABNORMAL) LIPID PANEL (08/02/2024 8:07 PM TSO) CHOLESTEROL,TOTAL 95(L) 100 - 199 mg/dL 08/03/2024 3:14 PM TSO [facility] Comment: Cholesterol, Total Reference Ranges Desirable <200 mg/dL Borderline 200-239 mg/dL High >=240 mg/dL TRIGLYCERIDES 95 <150 mg/dL 08/03/2024 3:14 PM [facility] HDL CHOLESTEROL 44 >40 mg/dL 3:14 PM [facility] NON-HDL CHOLESTEROL 51 <145 mg/dl 08/03/2024 3:14 PM [facility] CHOL/HDL RATIO 2.16 <4.50 08/03/2024 3:14 PM [facility] LDL CHOLESTEROL 32 <=130 mg/dL 08/03/2024 3:14 PM [facility] VLDL CHOLESTEROL 19 <=30 mg/dL 08/03/20 3:14 PM [facility] Blood BLOOD SPECIMEN / Unknown Venipuncture / Unknown 08/02/2024 8:07 PM [facility] 08/02/2024 8:13 PM [facility] us Allie Soriano ASSEMBLING MOTOR BUILDER CHEMISTRY Fin al Result [facility] [address] [place] [address], [place] * ANTI HCV (04/16/2017 9:14 AM CDT) HEPATITIS C ANTIBODY Non-Reacti ve Non-Reacti ve 04/16/2017 3:42 PM [facility] Blood BLOOD SPECIMEN / Unknown Venipuncture / Unknown 04/16/2017 9:14 AM CDT 04/16/2017 9:17 AM CDT Narrative [facility] - 04/16/2017 3:42 PM CDT Antibodies to HCV not detected; does not exclude the possibility of exposure to HCV. us Jakub Soliz MD SEND OUTS Final Result [facility] 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 Healthcare Directive 06/29/2024 024 * Full Code (Latest Code Status on File) Date Activated Date Inactivated Comments 03/12/2025 7:55 PM 03/17/2025 2:47 PM Question Answer Comments Code Status Discussion: Reviewed Preferences * Full Code Date Activated Date Inactivated Comments 02/27/2025 6:53 PM 03/04/2025 3:47 PM Question Answer Comments Code Status Discussion: Reviewed Preferences * Full Code Date Activated Date Inactivated Comments 02/17/2025 12:25 [...] Code Status Discussion: Reviewed Preferences Care Teams Electric Meter Inspector Relationship Specialty Start Date End Date Lakesha Khan MD [address] [place] [address] PCP - General Family Practice 04/30/22 [facility] [place] [address] [address] 08/15/24 Nurses, Advanced Heart Failure [address] [place] [id number] Advanced Heart Failure/Transplant Card 12/18/24 Hernesto Jolly MBChB [facility] [address] [place] [id number] Cardiology - CHF Advanced Heart Failure/Transplant Card 12/18/24 [facility] [place] [address] [address] 03/17/25
[2025-03-25] MEDS: NITROGLYCERIN 0.4 MG TAB.SUBL SUBLINGUAL (06:41)
--- NOTE | 2025-03-25 06:55 | ED.GENADULT ---
HPI - General Adult General Chief complaint: Chest Pain <Yolie Rodriguez MD - Last Filed: 03/27/25 22:34> Stated complaint: chest pain <Yolie Rodriguez MD - Last Filed: 03/27/25 22:34> Time Seen by Provider: 03/25/25 06:40 <Yolie Rodriguez MD - Last Filed: 03/27/25 22:34> Source: patient <Yolie Rodriguez MD - Last Filed: 03/27/25 22:34> Mode of arrival: ambulatory <Yolie Rodriguez MD - Last Filed: 03/27/25 22:34> Limitations: no limitations <Yolie Rodriguez MD - Last Filed: 03/27/25 22:34> History of Present Illness HPI narrative: 69-year-old male with a notable history of heart failure with reduced ejection fraction of 20% presents to the emergency department with evaluation of chest pain that started approximately 30 minutes prior to arrival. Patient reports that he has been struggling with ongoing shortness of breath for the last several months, follows closely with his cardiology team. He reports that at about 6:00 a.m. she had sudden onset of a dull chest ache no radiation. He woke his she gave him 1 nitroglycerin tablet. Thinks this may have improved his symptoms somewhat, 911 was called. He was given fentanyl and additional nitroglycerin and arrives to the emergency department. He cannot list his medications for me, stating that they were changed around by his transplanter orchid. He was hospitalized in early March with symptomatic postural hypotension, many medications were changed. Cardiology note from 03/18 is reviewed. He reports that he has been having some mild dizziness since hospital discharge but not as bad as previously. It sounds as though he was recommended to use compression stockings and an abdominal binder to help with swelling. He also has a notable history of coronary artery disease with cardiac stents most recently placed and evaluated on 02/17/2025, several events in the past previously as well. Patient reports that his chest pain is currently 2/10 after 3 nitroglycerin, including 1 that was given on arrival to ED. He does not know which blood thinners he takes but his list of medications indicates aspirin and Brilinta. Denies history of DVT or PE. Patient reports that he is scheduled to undergo ICD placement. Denies palpitations. No nausea or abdominal pain. No recent falls or injury. No fever or localizing symptoms of infection. Past medical history is most notable for heart failure with reduced ejection fraction. He also has type 2 diabetes, amputation of his left great toe, history of sleep apnea, coronary artery disease prior ventricular tachycardia. Medications reviewed, the pills that accompany him are not as accurate as the list reviewed from Cardiology, currently updating into his records here. Confirms allergies to Darvocet and appropriate in. Not currently smoking. ROS notable for the chest pain and ongoing shortness of breath as described above. Otherwise he reports that his medical conditions are stable times 12 systems. <Yolie Rodriguez MD - Last Filed: 03/27/25 22:34> Related Data Home medications: Home Medications ?Medication ?Instructions ?Recorded ?Confirmed atorvastatin 40 mg tablet 40 mg PO HS 01/08/23 03/25/25 gabapentin 300 mg capsule 600 mg PO TID 01/08/23 03/25/25 insulin glargine 100 unit/mL (3 20 unit subcut HS 01/08/23 03/25/25 mL) subcutaneous pen (Lantus Solostar U-100 Insulin) insulin lispro 100 unit/mL 6 - 10 unit subcut TIDWM 01/08/23 03/25/25 subcutaneous pen metformin 500 mg tablet,extended 1,000 mg PO BIDWM 01/08/23 03/25/25 release 24 hr acetaminophen 500 mg tablet 500 mg PO TID PRN 07/14/24 03/25/25 aspirin 81 mg tablet,delayed 81 mg PO DAILY 07/14/24 03/25/25 release (Adult Low Dose Aspirin) empagliflozin 10 mg tablet 10 mg PO DAILY 07/14/24 03/25/25 (Jardiance) multivitamin (Daily Multi-Vitamin 1 tab PO DAILY 07/14/24 03/25/25 tablet) nitroglycerin 0.4 mg sublingual 0.4 mg sublingual Q5-15M PRN 07/14/24 03/25/25 tablet furosemide 20 mg tablet (Lasix) 40 mg PO QAM 08/31/24 03/25/25 duloxetine 60 mg capsule,delayed 60 mg PO DAILY 03/25/25 03/25/25 release isosorbide mononitrate 60 mg 30 mg PO DAILY 03/25/25 03/25/25 tablet,extended release 24 hr metoprolol succinate 25 mg 12.5 mg PO BID 03/25/25 03/25/25 tablet,extended release 24 hr oxycodone 10 mg tablet 10 mg PO BID 03/25/25 03/25/25 sacubitril 24 mg-valsartan 26 mg 0.5 tab PO BID 03/25/25 03/25/25 tablet (Entresto) ticagrelor 90 mg tablet (Brilinta) 90 mg PO BID 03/25/25 03/25/25 <Yolie Rodriguez MD - Last Filed: 03/27/25 22:34> Allergies/adverse reactions: Allergies Allergy/AdvReac Type Severity Reaction Status Date / Time propoxyphene (From Allergy Mild Verified 02/27/25 12:33 Darvocet-N) bupropion (From Wellbutrin) Allergy Verified 02/27/25 12:33 <Yolie Rodriguez MD - Last Filed: 03/27/25 22:34> 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 ?M15.2 - Darek's nodes (with arthropathy) (ICD-10) Type II diabetes mellitus ?E11.9 - Type 2 diabetes mellitus without complications (ICD-10) Right carpal tunnel syndrome ?G56.01 - Carpal tunnel syndrome, right upper limb (ICD-10) Left carpal tunnel syndrome ?G56.02 - Carpal tunnel syndrome, left upper limb (ICD-10) Ulnar neuropathy of left upper extremity ?G56.22 - Lesion of ulnar nerve, left upper limb (ICD-10) Ulnar neuropathy of right upper extremity ?G56.21 - Lesion of ulnar nerve, right upper limb (ICD-10) Dupuytren's contracture of left hand ?M72.0 - Palmar fascial fibromatosis [Dupuytren] (ICD-10) Dupuytren's contracture of right hand ?M72.0 - Palmar fascial fibromatosis [Dupuytren] (ICD-10) Peripheral vascular disease ?I73.9 - Peripheral vascular disease, unspecified (ICD-10) Coronary artery disease ?I25.10 - Atherosclerotic heart disease of [place] coronary artery without angina pectoris (ICD-10) Non-ST elevated myocardial infarction ?I21.4 - Non-ST elevation (NSTEMI) myocardial infarction (ICD-10) <Yolie Rodriguez MD - Last Filed: 03/27/25 22:34> Surgical History: Surgical History H/O heart artery stent ?Z95.5 - Presence of coronary angioplasty implant and graft (ICD-10) Amputated toe of left foot ?S98.132A - Complete traumatic amputation of one left lesser toe, initial encounter (ICD-10) Cervical vertebral fusion ?M43.22 - Fusion of spine, cervical region (ICD-10) S/P right rotator cuff repair ?Z98.890 - Other specified postprocedural states (ICD-10) History of cholecystectomy ?Z90.49 - Acquired absence of other specified parts of digestive tract (ICD-10) History of appendectomy ?Z90.49 - Acquired absence of other specified parts of digestive tract (ICD-10) Gastric bypass status for obesity ?Z98.84 - Bariatric surgery status (ICD-10) <Yolie Rodriguez MD - Last Filed: 03/27/25 22:34> Family History: Family History (Updated 03/25/25 @ 12:40 by Eladio Hines MD) Sister Cardiovascular disease Other Colon cancer <Yolie Rodriguez MD - Last Filed: 03/27/25 22:34> Social History: Social History (Updated 03/25/25 @ 12:41 by Eladio Hines MD) Narrative: He lives in [place] with his . Worked at [employer] at a [employer] [place] until July when he developed heart problems. Now retired. He does not smoke. He drinks 1 beer a week. 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 Code status is full. What is your current living situation?: I presently have a place to live Problems where you live: no known problems In the past 12 months, utilities in danger of being shut off: no In past 12 months, lack of transportation kept you from medical appts, meetings, work, or getting things needed for daily living: no In the past 12 mos, have been you worried that your food would run out before you had money to buy more?: never true In the past 12 mos, the food you bought just didn't last and you didn't have money to buy more?: never true Smoking Status: Never smoker Do you use any of these nicotine containing products: None Second hand tobacco smoke exposure: No How often do you have a drink containing alcohol: 2-3 times a week How many standard drinks containing alcohol do you have on a typical day: 1 or 2 How often do you have six or more drinks on one occasion: Never AUDIT-C Alcohol total score: 3 Non-prescribed substance use: denies use Caffeine: Yes How often does anyone, including family, friends and others, physically hurt you: never How often does anyone, including family, friends and others, insult or talk down to you: never How often does anyone, including family, friends and others, threaten you with harm: never How often does anyone, including family, friends and others, scream or curse at you: never service: No <Yolie Rodriguez MD - Last Filed: 03/27/25 22:34> Exam Const: Vital Signs, click to edit/add: Vital Signs - 24 hr 03/25/25 06:32 03/25/25 06:36 03/25/25 06:43 Temperature 98.0 F Pulse Rate 94 92 Pulse Rate [Left P ulse Oximeter] 95 Pulse Rate [Right Radial] Respiratory Rate 20 29 H 10 L Blood Pressure 110/73 Blood Pressure [Ri ght Arm] Blood Pressure [Ri ght Upper Arm] 112/70 Pulse Oximetry 96 95 94 Oxygen Delivery Me thod Room Air 03/25/25 06:45 03/25/25 07:00 03/25/25 07:01 Temperature Pulse Rate 93 92 92 Pulse Rate [Left P ulse Oximeter] Pulse Rate [Right Radial] Respiratory Rate 22 11 L 8 L Blood Pressure 107/72 Blood Pressure [Ri ght Arm] Blood Pressure [Ri ght Upper Arm] Pulse Oximetry 95 93 95 Oxygen Delivery Me thod 03/25/25 07:15 03/25/25 07:30 03/25/25 07:32 Temperature Pulse Rate 94 94 95 Pulse Rate [Left P ulse Oximeter] Pulse Rate [Right Radial] Respiratory Rate 19 11 L 11 L Blood Pressure 122/76 Blood Pressure [Ri ght Arm] Blood Pressure [Ri ght Upper Arm] Pulse Oximetry 95 96 94 Oxygen Delivery Nh thod 03/25/25 07:45 03/25/25 08:00 03/25/25 08:02 Temperature Pulse Rate 96 98 98 Pulse Rate [Left P ulse Oximeter] Pulse Rate [Right Radial] Respiratory Rate 21 29 H 7 L Blood Pressure 128/103 H Blood Pressure [Ri ght Arm] Blood Pressure [Ri ght Upper Arm] Pulse Oximetry 95 97 83 L Oxygen Delivery Nh thod 03/25/25 08:15 03/25/25 08:30 03/25/25 08:32 Temperature Pulse Rate 97 98 98 Pulse Rate [Left P ulse Oximeter] Pulse Rate [Right Radial] Respiratory Rate 12 8 L 16 Blood Pressure 125/84 Blood Pressure [Ri ght Arm] Blood Pressure [Ri ght Upper Arm] Pulse Oximetry 91 86 L 92 Oxygen Delivery Nh thod 03/25/25 08:33 03/25/25 08:45 03/25/25 09:00 Temperature Pulse Rate 98 99 104 H Pulse Rate [Left P ulse Oximeter] Pulse Rate [Right Radial] Respiratory Rate 23 28 H 29 H Blood Pressure Blood Pressure [Ri ght Arm] Blood Pressure [Ri ght Upper Arm] Pulse Oximetry 90 89 92 Oxygen Delivery Nh thod 03/25/25 09:02 03/25/25 09:15 03/25/25 09:30 Temperature Pulse Rate 104 H 101 H 103 H Pulse Rate [Left P ulse Oximeter] Pulse Rate [Right Radial] Respiratory Rate 22 21 20 Blood Pressure 114/94 H Blood Pressure [Ri ght Arm] Blood Pressure [Ri ght Upper Arm] Pulse Oximetry 92 91 92 Oxygen Delivery Nh thod 03/25/25 09:32 03/25/25 09:45 03/25/25 10:00 Temperature Pulse Rate 103 H 106 H Pulse Rate [Left P ulse Oximeter] Pulse Rate [Right Radial] Respiratory Rate 26 H 25 H 16 Blood Pressure 124/103 H Blood Pressure [Ri ght Arm] Blood Pressure [Ri ght Upper Arm] Pulse Oximetry 94 92 Oxygen Delivery Me thod 03/25/25 10:01 03/25/25 10:15 03/25/25 10:30 Temperature Pulse Rate 103 H Pulse Rate [Left P ulse Oximeter] Pulse Rate [Right Radial] Respiratory Rate 14 22 18 Blood Pressure 132/90 H Blood Pressure [Ri ght Arm] Blood Pressure [Ri ght Upper Arm] Pulse Oximetry 95 Oxygen Delivery Me thod 03/25/25 10:32 03/25/25 10:45 03/25/25 11:03 Temperature 97.9 F Pulse Rate 103 H 102 H Pulse Rate [Left P ulse Oximeter] Pulse Rate [Right Radial] 101 H Respiratory Rate 24 22 20 Blood Pressure 127/82 Blood Pressure [Ri ght Arm] 116/79 Blood Pressure [Ri ght Upper Arm] Pulse Oximetry 95 96 97 Oxygen Delivery Me od Room Air 03/25/25 11:03 Temperature Pulse Rate Pulse Rate [Left P ulse Oximeter] Pulse Rate [Right Radial] Respiratory Rate Blood Pressure Blood Pressure [Ri ght Arm] Blood Pressure [Ri ght Upper Arm] Pulse Oximetry 97 Oxygen Delivery Me od Room Air <Yolie Rodriguez MD - Last Filed: 03/27/25 22:34> Vital Signs, click to edit/add: Vital Signs - 24 hr 03/25/25 06:32 03/25/25 06:36 03/25/25 06:43 Temperature 98.0 F Pulse Rate 94 92 Pulse Rate [Left P ulse Oximeter] 95 Pulse Rate [Right Radial] Respiratory Rate 20 29 H 10 L Blood Pressure 110/73 Blood Pressure [Ri ght Arm] Blood Pressure [Ri ght Upper Arm] 112/70 Pulse Oximetry 96 95 94 Oxygen Delivery Me od Room Air 03/25/25 06:45 03/25/25 07:00 03/25/25 07:01 Temperature Pulse Rate 93 92 92 Pulse Rate [Left P ulse Oximeter] Pulse Rate [Right Radial] Respiratory Rate 22 11 L 8 L Blood Pressure 107/72 Blood Pressure [Ri ght Arm] Blood Pressure [Ri ght Upper Arm] Pulse Oximetry 95 93 95 Oxygen Delivery Me thod 03/25/25 07:15 03/25/25 07:30 03/25/25 07:32 Temperature Pulse Rate 94 94 95 Pulse Rate [Left P ulse Oximeter] Pulse Rate [Right Radial] Respiratory Rate 19 11 L 11 L Blood Pressure 122/76 Blood Pressure [Ri ght Arm] Blood Pressure [Ri ght Upper Arm] Pulse Oximetry 95 96 94 Oxygen Delivery Nh thod 03/25/25 07:45 03/25/25 08:00 03/25/25 08:02 Temperature Pulse Rate 96 98 98 Pulse Rate [Left P ulse Oximeter] Pulse Rate [Right Radial] Respiratory Rate 21 29 H 7 L Blood Pressure 128/103 H Blood Pressure [Ri ght Arm] Blood Pressure [Ri ght Upper Arm] Pulse Oximetry 95 97 83 L Oxygen Delivery Nh thod 03/25/25 08:15 03/25/25 08:30 03/25/25 08:32 Temperature Pulse Rate 97 98 98 Pulse Rate [Left P ulse Oximeter] Pulse Rate [Right Radial] Respiratory Rate 12 8 L 16 Blood Pressure 125/84 Blood Pressure [Ri ght Arm] Blood Pressure [Ri ght Upper Arm] Pulse Oximetry 91 86 L 92 Oxygen Delivery Nh thod 03/25/25 08:33 03/25/25 08:45 03/25/25 09:00 Temperature Pulse Rate 98 99 104 H Pulse Rate [Left P ulse Oximeter] Pulse Rate [Right Radial] Respiratory Rate 23 28 H 29 H Blood Pressure Blood Pressure [Ri ght Arm] Blood Pressure [Ri ght Upper Arm] Pulse Oximetry 90 89 92 Oxygen Delivery Nh thod 03/25/25 09:02 03/25/25 09:15 03/25/25 09:30 Temperature Pulse Rate 104 H 101 H 103 H Pulse Rate [Left P ulse Oximeter] Pulse Rate [Right Radial] Respiratory Rate 22 21 20 Blood Pressure 114/94 H Blood Pressure [Ri ght Arm] Blood Pressure [Ri ght Upper Arm] Pulse Oximetry 92 91 92 Oxygen Delivery Nh thod 03/25/25 09:32 03/25/25 09:45 03/25/25 10:00 Temperature Pulse Rate 103 H 106 H Pulse Rate [Left P ulse Oximeter] Pulse Rate [Right Radial] Respiratory Rate 26 H 25 H 16 Blood Pressure 124/103 H Blood Pressure [Ri ght Arm] Blood Pressure [Ri ght Upper Arm] Pulse Oximetry 94 92 Oxygen Delivery Me thod 03/25/25 10:01 03/25/25 10:15 03/25/25 10:30 Temperature Pulse Rate 103 H Pulse Rate [Left P ulse Oximeter] Pulse Rate [Right Radial] Respiratory Rate 14 22 18 Blood Pressure 132/90 H Blood Pressure [Ri ght Arm] Blood Pressure [Ri ght Upper Arm] Pulse Oximetry 95 Oxygen Delivery Me thod 03/25/25 10:32 03/25/25 10:45 03/25/25 11:03 Temperature 97.9 F Pulse Rate 103 H 102 H Pulse Rate [Left P ulse Oximeter] Pulse Rate [Right Radial] 101 H Respiratory Rate 24 22 20 Blood Pressure 127/82 Blood Pressure [Ri ght Arm] 116/79 Blood Pressure [Ri ght Upper Arm] Pulse Oximetry 95 96 97 Oxygen Delivery Me thod Room Air 03/25/25 11:03 Temperature Pulse Rate Pulse Rate [Left P ulse Oximeter] Pulse Rate [Right Radial] Respiratory Rate Blood Pressure Blood Pressure [Ri ght Arm] Blood Pressure [Ri ght Upper Arm] Pulse Oximetry 97 Oxygen Delivery Me thod Room Air <Bao Matos MD - Last Filed: 03/25/25 13:59> Documenting provider has reviewed patient's vital signs: yes <Yolie Rodriguez MD - Last Filed: 03/27/25 22:34> Common normals: alert <Yolie Rodriguez MD - Last Filed: 03/27/25 22:34> Other: Anxious but redirectable. Cannot list of medications but is otherwise seeming to be a good historian. Appears nontoxic. <Yolie Rodriguez MD - Last Filed: 03/27/25 22:34> HENMT: Common normals: normocephalic, moist oral mucous membranes and oropharynx normal <Yolie Rodriguez MD - Last Filed: 03/27/25 22:34> Head and scalp: normocephalic <Yolie Rodriguez MD - Last Filed: 03/27/25 22:34> Face and sinus: normal facial exam <Yolie Rodriguez MD - Last Filed: 03/27/25 22:34> Mouth: oral and palatal mucosa normal <MD Lenard Tinsley Last Filed: 03/27/25 22:34> Throat: posterior oropharynx normal <MD Lenard Tinsley Last Filed: 03/27/25 22:34> Eye: Common normals: conjunctivae normal <MD Lenard Tinsley Last Filed: 03/27/25 22:34> General eye: normal appearance of both eyes <MD Lenard Tinsley Last Filed: 03/27/25 22:34> Conjunctiva: conjunctiva(e) normal <MD Lenard Tinsley Last Filed: 03/27/25 22:34> Neck & C-Spine: Common normals: no lymphadenopathy <MD Lenard Tinsley Last Filed: 03/27/25 22:34> General: normal visual inspection <MD Lenard Tinsley Last Filed: 03/27/25 22:34> Resp: Common normals: normal respiratory effort and no use of accessory muscles <MD Lenard Tinsley Last Filed: 03/27/25 22:34> Other: Fine bibasilar crackles. <MD Lenard Tinsley Last Filed: 03/27/25 22:34> Cardio: Common normals: regular rate and regular rhythm <MD Lenard Tinsley Last Filed: 03/27/25 22:34> Rate: regular rate <MD Lenard Tinsley Last Filed: 03/27/25 22:34> Rhythm: regular rhythm <MD Lenard Tinsley Last Filed: 03/27/25 22:34> Other: Heart sounds are slightly distant but I do hear a clear S1 and S2 without an obvious gallop today. <MD Lenard Tinsley Last Filed: 03/27/25 22:34> GI: Common normals: Normal to inspection, nondistended, normoactive bowel sounds present, soft to palpation, non-tender, no hepatosplenomegaly and no masses <MD Lenard Tinsley Last Filed: 03/27/25 22:34> Palpation: soft and no hepatosplenomegaly <Yolie Rodriguez MD - Last Filed: 03/27/25 22:34> Extremity: Other: Left great toe amputation old and well healed. 1+ dorsalis pedis pulses bilaterally with normal capillary refill in the feet. Trace bilateral edema. Equal and symmetric. <Yolie Rodriguez MD - Last Filed: 03/27/25 22:34> Neuro: Common normals: moves all extremities and no focal motor deficits <Yolie Rodriguez MD - Last Filed: 03/27/25 22:34> Sensorium/orientation: alert <Yolie Rodriguez MD - Last Filed: 03/27/25 22:34> Speech: speech normal <Yolie Rodriguez MD - Last Filed: 03/27/25 22:34> Psych: Appearance: grossly normal <Yolie Rodriguez MD - Last Filed: 03/27/25 22:34> Attitude: engaged <Yolie Rodriguez MD - Last Filed: 03/27/25 22:34> Insight: insight good <Yolie Rodriguez MD - Last Filed: 03/27/25 22:34> Judgement: judgment good <Yolie Rodriguez MD - Last Filed: 03/27/25 22:34> Skin: Narrative: No open sores or ulcerations noted. <Yolie Rodriguez MD - Last Filed: 03/27/25 22:34> Course Course ED Course: 69-year-old male with concerning cardiac history presenting with chest pain mostly improved with the use of nitroglycerin. Will place on quality assurance monitor body, performed chest x-ray, EKG, typical cardiac labs. May need serial troponins since pain has just recently started. Continue nitroglycerin p.r.n.. Await findings and low threshold for Cardiology consult. Initial EKG appears stable from last month. Update: BNP is slightly more elevated than usual but remainder of labs are reassuring. Will hand over care to incoming day should partner <Yolie Rodriguez MD - Last Filed: 03/27/25 22:34> Reevaluation(s) Reevaluation #1: Patient signed the Dr. Matos at 8:00 a.m.. Troponin repeat scheduled for 8:40 a.m.. Repeat troponin came back unchanged at 0.02. I had the nurses repeat EKG. The 2nd EKG this morning does showed new T-wave inversions in leads V4-V6. Repeat troponin is stable. I recheck the patient about 8:50 a.m.. He was having increasing anxiety and was tremulous and anxious. Was laying flat. I helped him reposition in bed which helped live with his anxiety but he was still anxious. He wanted some more anxiety medication and received Ativan 1 mg p.o.. Exam: Cardiac: Borderline tachycardia. No murmurs. No JVD. No peripheral edema. Symmetric radial pulses. Pulmonary: He does have rales in both lower lung lopes from the bases about skilled nursing up. Rales seems symmetric. Skin: [place], warm. No diaphoresis or pallor Neuro: Alert and oriented. Psych: Pleasant and cooperative but does endorse anxiety. Extremities: Trace bilateral ankle edema but not much peripheral edema. No asymmetric edema or signs of DVT. Based on my labs, x-ray imaging, I do think the patient is having CHF exacerbation. BNP is similar to rn gyn and chest x-ray shows pulmonary edema not as radiographically prominent as February 27. However clinically he definitely has fluid in his lungs. Additional history, which he had not provider earlier, is that he gained 3 lb yesterday. He is not normally on Lasix but did take a p.r.n. dose yesterday. He says he did not let anyone know because he is not supposed to call his transplanter orchid and list he gains 5 lb. was unaware that he had gained 3 lb and she is pleasantly exasperated with him. They also note that he does have known CHF but was having dizziness because of med so was taken off Jardiance and Entresto last week. Lasix 40 mg IV x1 ordered. Discussed with cardiology, Dr. Tsai. He agrees that clinically this sounds like CHF and it would be reasonable for us to admit him here in [place] for diuresis and monitoring. No indication to transfer to [place]. Cardiology would not place the defibrillator today's if he is having active CHF. Nor is defibrillator needed an emergent basis. Discussed with our hospitalist, Dr. Hines, who graciously agrees to admit. <Bao Matos MD - Last Filed: 03/25/25 13:59> Vital Signs Vital signs: Initial Vital Signs Respiratory Effort Normal, Spontaneous, Non-Labored 03/25/25 06:31 Respiratory Depth Normal 03/25/25 06:31 Respiratory Pattern Normal 03/25/25 06:31 Vital Signs Temperature 98.0 F 03/25/25 06:32 Pulse Rate 95 03/25/25 06:32 Respiratory Rate 20 03/25/25 06:32 Blood Pressure 112/70 03/25/25 06:32 Pulse Oximetry 96 03/25/25 06:32 Oxygen Delivery Method Room Air 03/25/25 06:32 Temperature 98.1 F 03/27/25 22:02 Pulse Rate 99 03/27/25 22:02 Respiratory Rate 16 03/27/25 22:02 Blood Pressure 106/71 03/27/25 22:02 Pulse Oximetry 95 03/27/25 22:02 Oxygen Delivery Method Room Air 03/27/25 22:02 <Yolie Rodriguez MD - Last Filed: 03/27/25 22:34> Initial Vital Signs Respiratory Effort Normal, Spontaneous, Non-Labored 03/25/25 06:31 Respiratory Depth Normal 03/25/25 06:31 Respiratory Pattern Normal 03/25/25 06:31 Vital Signs Temperature 98.0 F 03/25/25 06:32 Pulse Rate 95 03/25/25 06:32 Respiratory Rate 20 03/25/25 06:32 Blood Pressure 112/70 03/25/25 06:32 Pulse Oximetry 96 03/25/25 06:32 Oxygen Delivery Method Room Air 03/25/25 06:32 Temperature 98.1 F 03/27/25 22:02 Pulse Rate 99 03/27/25 22:02 Respiratory Rate 16 03/27/25 22:02 Blood Pressure 106/71 03/27/25 22:02 Pulse Oximetry 95 03/27/25 22:02 Oxygen Delivery Method Room Air 03/27/25 22:02 <Bao Matos MD - Last Filed: 03/25/25 13:59> Medications Administered Medications: Generic Name Dose Route Start Last Admin Trade Name Freq PRN Reason Stop Dose Admin Acetaminophen 500 mg 03/25/25 12:26 03/27/25 12:30 Acetaminophen 500 Mg Tablet PO 500 mg TID PRN Administration Aspirin 81 mg 03/26/25 09:00 03/27/25 08:52 Aspirin 81 Mg Tablet Ec PO 81 mg DAILY GIOVANNI Administration Atorvastatin Calcium 40 mg 03/25/25 21:00 03/27/25 20:49 Atorvastatin Calcium 40 Mg Tablet PO 40 mg HS GIOVANNI Administration Duloxetine HCl 60 mg 03/26/25 09:00 03/27/25 08:50 [address] PO 60 mg DAILY GIOVANNI Administration Empagliflozin 10 mg 03/25/25 12:26 03/27/25 08:52 Empagliflozin 10 Mg Tablet PO 10 mg DAILY GIOVANNI Administration Enoxaparin Sodium 40 mg 03/25/25 21:00 03/27/25 20:48 Enoxaparin 40 Mg/0.4 Ml Inj SUBCUT 40 mg HS GIOVANNI Administration Furosemide 40 mg 03/27/25 13:20 03/27/25 13:50 Furosemide 40 Mg Tablet PO 40 mg DAILY@0800 GIOVANNI Administration Gabapentin 1,200 mg 03/25/25 21:00 03/27/25 20:49 Gabapentin 300 Mg Capsule PO 1,200 mg BID GIOVANNI Administration Hydroxyzine Pamoate 25 mg 03/26/25 14:57 03/27/25 20:49 Hydroxyzine Pamoate 25 Mg Capsule PO 25 mg Q4H PRN Administration Insulin Aspart 6 - 10 unit 03/25/25 12:26 03/27/25 17:41 Insulin Aspart 100 Unit/Ml SUBCUT 8 unit TIDWM GIOVANNI Administration Insulin Glargine 18 unit 03/25/25 21:00 03/27/25 20:52 Insulin Glargine,Hum.Rec.Anlog 100 Unit/Ml Insuln.Pen SUBCUT 18 unit HS GIOVANNI Administration Isosorbide Mononitrate 30 mg 03/25/25 19:55 03/27/25 08:53 Isosorbide Mononitrate Er 30 Mg Tab PO 30 mg DAILY GIOVANNI Administration Lorazepam 0.5 mg 03/26/25 07:41 03/27/25 16:31 Lorazepam 0.5 Mg Tablet PO 0.5 mg Q6H PRN Administration Melatonin 3 mg 03/25/25 12:26 03/27/25 20:49 Melatonin 3 Mg Tablet PO 3 mg HS PRN Administration Metformin HCl 1,000 mg 03/25/25 18:00 03/27/25 17:47 Metformin Er 500 Mg PO 1,000 mg BIDWM GIOVANNI Administration Multivitamins/Minerals 1 tab 03/26/25 09:00 03/27/25 08:52 Multivitamin/Minerals 1 Tablet PO 1 tab DAILY GIOVANNI Administration Sacubitril/Valsartan 0.5 tab 03/25/25 21:00 03/25/25 21:04 Sacubitril 24 Mg/Valsartan 26 Mg Tablet PO Not Given On Hold: 03/26/25 07:41 BID GIOVANNI Sodium Chloride 5 ml 03/25/25 21:00 03/27/25 20:50 Sodium Chloride 0.9 % (Flush) 10 Ml Syringe IVF 5 ml BID GIOVANNI Administration Spironolactone 25 mg 03/26/25 11:35 03/27/25 08:52 Spironolactone 25 Mg Tablet PO 25 mg DAILY GIOVANNI Administration Ticagrelor 90 mg 03/25/25 21:00 03/27/25 20:49 Ticagrelor 90 Mg Tablet PO 90 mg BID GIOVANNI Administration Discontinued Medications Generic Name Dose Route Start Last Admin Trade Name Freq PRN Reason Stop Dose Admin Furosemide 40 mg 03/25/25 09:06 03/25/25 09:10 Furosemide 10 Mg/Ml Inj IVP 03/25/25 09:07 40 mg ONCE ONE Administration Furosemide 40 mg 03/25/25 15:00 03/25/25 15:44 Furosemide 10 Mg/Ml Inj IVP 03/25/25 15:01 40 mg ONCE ONE Administration Sodium Chloride 250 mls @ 250 mls/hr 03/26/25 00:25 03/26/25 03:31 0.9 % Sodium Chloride 250 Ml IV 03/26/25 01:24 Infused .Q1H ONE Infusion Lorazepam 0.5 mg 03/25/25 07:39 03/25/25 07:45 Lorazepam 0.5 Mg Tablet PO 03/25/25 07:40 0.5 mg ONCE ONE Administration Lorazepam 1 mg 03/25/25 08:48 03/25/25 08:59 Lorazepam 1 Mg Tablet PO 03/25/25 08:49 1 mg ONCE ONE Administration Metoprolol Succinate 12.5 mg 03/25/25 19:55 03/25/25 21:04 Metoprolol Succinate (Xl) 25 Mg Tab PO Not Given BID GIOVANNI Metoprolol Succinate 25 mg 03/26/25 07:12 03/26/25 08:37 Metoprolol Succinate (Xl) 25 Mg Tab PO 03/26/25 07:13 25 mg ONCE ONE Administration Nitroglycerin 0.4 mg 03/25/25 06:50 03/25/25 06:41 Nitroglycerin 0.4 Mg Tab.Subl SUBLINGUAL 0.4 mg Q5M PRN Administration Potassium Bicarbonate 25 meq 03/25/25 12:26 03/25/25 15:43 Potassium Bicarb 25 Meq Effervescent Tab PO 03/25/25 14:27 25 meq Q2H GIOVANNI Administration Potassium Bicarbonate 25 meq 03/25/25 15:45 03/25/25 16:08 Potassium Bicarb 25 Meq Effervescent Tab PO 03/25/25 15:46 Not Given Q2H GIOVANNI Potassium Bicarbonate 25 meq 03/26/25 10:23 03/26/25 10:33 Potassium Bicarb 25 Meq Effervescent Tab PO 03/26/25 10:24 25 meq ONCE ONE Administration <Yolie Rodriguez MD - Last Filed: 03/27/25 22:34> Generic Name Dose Route Start Last Admin Trade Name Freq PRN Reason Stop Dose Admin Acetaminophen 500 mg 03/25/25 12:26 03/27/25 12:30 Acetaminophen 500 Mg Tablet PO 500 mg TID PRN Administration Aspirin 81 mg 03/26/25 09:00 03/27/25 08:52 Aspirin 81 Mg Tablet Ec PO 81 mg DAILY GIOVANNI Administration Atorvastatin Calcium 40 mg 03/25/25 21:00 03/27/25 20:49 Atorvastatin Calcium 40 Mg Tablet PO 40 mg HS GIOVANNI Administration Duloxetine HCl 60 mg 03/26/25 09:00 03/27/25 08:50 [address] PO 60 mg DAILY GIOVANNI Administration Empagliflozin 10 mg 03/25/25 12:26 03/27/25 08:52 Empagliflozin 10 Mg Tablet PO 10 mg DAILY GIOVANNI Administration Enoxaparin Sodium 40 mg 03/25/25 21:00 03/27/25 20:48 Enoxaparin 40 Mg/0.4 Ml Inj SUBCUT 40 mg HS GIOVANNI Administration Furosemide 40 mg 03/27/25 13:20 03/27/25 13:50 Furosemide 40 Mg Tablet PO 40 mg DAILY@0800 GIOVANNI Administration Gabapentin 1,200 mg 03/25/25 21:00 03/27/25 20:49 Gabapentin 300 Mg Capsule PO 1,200 mg BID GIOVANNI Administration Hydroxyzine Pamoate 25 mg 03/26/25 14:57 03/27/25 20:49 Hydroxyzine Pamoate 25 Mg Capsule PO 25 mg Q4H PRN Administration Insulin Aspart 6 - 10 unit 03/25/25 12:26 03/27/25 17:41 Insulin Aspart 100 Unit/Ml SUBCUT 8 unit TIDWM GIOVANNI Administration Insulin Glargine 18 unit 03/25/25 21:00 03/27/25 20:52 Insulin Glargine,Hum.Rec.Anlog 100 Unit/Ml Insuln.Pen SUBCUT 18 unit HS GIOVANNI Administration Isosorbide Mononitrate 30 mg 03/25/25 19:55 03/27/25 08:53 Isosorbide Mononitrate Er 30 Mg Tab PO 30 mg DAILY GIOVANNI Administration Lorazepam 0.5 mg 03/26/25 07:41 03/27/25 16:31 Lorazepam 0.5 Mg Tablet PO 0.5 mg Q6H PRN Administration Melatonin 3 mg 03/25/25 12:26 03/27/25 20:49 Melatonin 3 Mg Tablet PO 3 mg HS PRN Administration Metformin HCl 1,000 mg 03/25/25 18:00 03/27/25 17:47 Metformin Er 500 Mg PO 1,000 mg BIDWM GIOVANNI Administration Multivitamins/Minerals 1 tab 03/26/25 09:00 03/27/25 08:52 Multivitamin/Minerals 1 Tablet PO 1 tab DAILY GIOVANNI Administration Sacubitril/Valsartan 0.5 tab 03/25/25 21:00 03/25/25 21:04 Sacubitril 24 Mg/Valsartan 26 Mg Tablet PO Not Given On Hold: 03/26/25 07:41 BID GIOVANNI Sodium Chloride 5 ml 03/25/25 21:00 03/27/25 20:50 Sodium Chloride 0.9 % (Flush) 10 Ml Syringe IVF 5 ml BID GIOVANNI Administration Spironolactone 25 mg 03/26/25 11:35 03/27/25 08:52 Spironolactone 25 Mg Tablet PO 25 mg DAILY GIOVANNI Administration Ticagrelor 90 mg 03/25/25 21:00 03/27/25 20:49 Ticagrelor 90 Mg Tablet PO 90 mg BID GIOVANNI Administration Discontinued Medications Generic Name Dose Route Start Last Admin Trade Name Chao PRN Reason Stop Dose Admin Furosemide 40 mg 03/25/25 09:06 03/25/25 09:10 Furosemide 10 Mg/Ml Inj IVP 03/25/25 09:07 40 mg ONCE ONE Administration Furosemide 40 mg 03/25/25 15:00 03/25/25 15:44 Furosemide 10 Mg/Ml Inj IVP 03/25/25 15:01 40 mg ONCE ONE Administration Sodium Chloride 250 mls @ 250 mls/hr 03/26/25 00:25 03/26/25 03:31 0.9 % Sodium Chloride 250 Ml IV 03/26/25 01:24 Infused .Q1H ONE Infusion Lorazepam 0.5 mg 03/25/25 07:39 03/25/25 07:45 Lorazepam 0.5 Mg Tablet PO 03/25/25 07:40 0.5 mg ONCE ONE Administration Lorazepam 1 mg 03/25/25 08:48 03/25/25 08:59 Lorazepam 1 Mg Tablet PO 03/25/25 08:49 1 mg ONCE ONE Administration Metoprolol Succinate 12.5 mg 03/25/25 19:55 03/25/25 21:04 Metoprolol Succinate (Xl) 25 Mg Tab PO Not Given BID GIOVANNI Metoprolol Succinate 25 mg 03/26/25 07:12 03/26/25 08:37 Metoprolol Succinate (Xl) 25 Mg Tab PO 03/26/25 07:13 25 mg ONCE ONE Administration Nitroglycerin 0.4 mg 03/25/25 06:50 03/25/25 06:41 Nitroglycerin 0.4 Mg Tab.Subl SUBLINGUAL 0.4 mg Q5M PRN Administration Potassium Bicarbonate 25 meq 03/25/25 12:26 03/25/25 15:43 Potassium Bicarb 25 Meq Effervescent Tab PO 03/25/25 14:27 25 meq Q2H GIOVANNI Administration Potassium Bicarbonate 25 meq 03/25/25 15:45 03/25/25 16:08 Potassium Bicarb 25 Meq Effervescent Tab PO 03/25/25 15:46 Not Given Q2H GIOVANNI Potassium Bicarbonate 25 meq 03/26/25 10:23 03/26/25 10:33 Potassium Bicarb 25 Meq Effervescent Tab PO 03/26/25 10:24 25 meq ONCE ONE Administration <Bao Matos MD - Last Filed: 03/25/25 13:59> Medical Decision Making Lab Data Lab results reviewed: Yes I reviewed the patient's lab results <Yolie Rodriguez MD - Last Filed: 03/27/25 22:34> Lab results narrative: Initial labs look reassuring though be in pea is higher than typical. Remainder look stable. Initial troponin is reassuring. <Yolie Rodriguez MD - Last Filed: 03/27/25 22:34> Labs: Lab Results 03/25/25 03/25/25 03/25/25 Range/Units 06:30 06:41 08:40 WBC 5.46 (4.50-11.00) K/uL RBC 4.31 (4.30-5.90) m/uL Hgb 11.8 L (13.5-17.5) gm/dL Hct 37.7 (37.0-53.0) % MCV 88 (80-100) fL MCH 27 (26-34) pg MCHC 31 L (32-36) gm/dL RDW Coeff of Lou 13.0 (11.5-15.5) % Plt Count 156 (140-440) K/uL Neut % (Auto) 58.7 (42.0-72.0) % Lymph % (Auto) 28.2 (20-44) % [place] % (Auto) 8.1 (0.0-11.0) % Eos % (Auto) 4.4 (0.0-7.0) % Baso % (Auto) 0.4 (0.0-3.0) % Neut # (Auto) 3.21 (1.7-7.0) K/uL Lymph # (Auto) 1.54 (0.90-2.90) K/uL [place] # (Auto) 0.40 (0.00-0.90) K/UL Eos # (Auto) 0.24 (0.00-0.50) K/uL Baso # (Auto) 0.02 (0.00-0.30) K/uL Abs Immat Gran (auto) 0.01 (0.00-0.30) K/uL Imm/Tot Granulo (auto) 0.2 % Sodium 137 (135-149) mmol/L Potassium 4.1 (3.6-5.1) mmol/L Chloride 104 (96-114) mmol/L Carbon Dioxide 27 (20-32) mmol/L Anion Gap 6 L (7-15) mEq/L BUN 28 (7-30) mg/dL Creatinine 1.1 (0.5-1.5) mg/dL Estimated Creat Clear 74.73 Estimated GFR 73 ml/min Glucose 187 H (60-115) mg/dL Calcium 8.8 (8.4-10.6) mg/dL Total Bilirubin 1.2 (0.1-1.5) mg/dL AST 23 (12-35) U/L ALT 25 (4-50) U/L Alkaline Phosphatase 37 L (40-150) U/L Troponin I 0.02 (0.01-0.04) ng/mL C-Reactive Protein 0.6 (0.5-1.0) mg/dL NT-Pro-B Natriuret Pep 7890 H (See Note) pg/mL Total Protein 6.6 (6.0-8.3) g/dL Albumin 3.7 (3.3-5.0) g/dL POC Troponin I 0.03 0.03 (0.01-0.04) ng/ml <Yolie Rodriguez MD - Last Filed: 03/27/25 22:34> Lab Results 03/25/25 03/25/25 03/25/25 Range/Units 06:30 06:41 08:40 WBC 5.46 (4.50-11.00) K/uL RBC 4.31 (4.30-5.90) m/uL Hgb 11.8 L (13.5-17.5) gm/dL Hct 37.7 (37.0-53.0) % MCV 88 (80-100) fL MCH 27 (26-34) pg MCHC 31 L (32-36) gm/dL RDW Coeff of Lou 13.0 (11.5-15.5) % Plt Count 156 (140-440) K/uL Neut % (Auto) 58.7 (42.0-72.0) % Lymph % (Auto) 28.2 (20-44) % [place] % (Auto) 8.1 (0.0-11.0) % Eos % (Auto) 4.4 (0.0-7.0) % Baso % (Auto) 0.4 (0.0-3.0) % Neut # (Auto) 3.21 (1.7-7.0) K/uL Lymph # (Auto) 1.54 (0.90-2.90) K/uL [place] # (Auto) 0.40 (0.00-0.90) K/UL Eos # (Auto) 0.24 (0.00-0.50) K/uL Baso # (Auto) 0.02 (0.00-0.30) K/uL Abs Immat Gran (auto) 0.01 (0.00-0.30) K/uL Imm/Tot Granulo (auto) 0.2 % Sodium 137 (135-149) mmol/L Potassium 4.1 (3.6-5.1) mmol/L Chloride 104 (96-114) mmol/L Carbon Dioxide 27 (20-32) mmol/L Anion Gap 6 L (7-15) mEq/L BUN 28 (7-30) mg/dL Creatinine 1.1 (0.5-1.5) mg/dL Estimated Creat Clear 74.73 Estimated GFR 73 ml/min Glucose 187 H (60-115) mg/dL Calcium 8.8 (8.4-10.6) mg/dL Total Bilirubin 1.2 (0.1-1.5) mg/dL AST 23 (12-35) U/L ALT 25 (4-50) U/L Alkaline Phosphatase 37 L (40-150) U/L Troponin I 0.02 (0.01-0.04) ng/mL C-Reactive Protein 0.6 (0.5-1.0) mg/dL NT-Pro-B Natriuret Pep 7890 H (See Note) pg/mL Total Protein 6.6 (6.0-8.3) g/dL Albumin 3.7 (3.3-5.0) g/dL POC Troponin I 0.03 0.03 (0.01-0.04) ng/ml <Bao Matos MD - Last Filed: 03/25/25 13:59> Imaging Data Chest x-ray: Attestation: I have reviewed the pertinent imaging results. <Yolie Rodriguez MD - Last Filed: 03/27/25 22:34> My impression: Cardiomegaly and heart failure but looks similar to last month <Yolie Rodriguez MD - Last Filed: 03/27/25 22:34> Radiologist's impression: Impression: 1. Unchanged enlargement of the heart. 2. Mild vascular congestion. This probably indicates mild congestive heart failure. The patient had a similar finding February 27, 2025 the current findings are less severe. 3. No focal consolidation, infiltrate or mass. No pleural effusion or pneumothorax. Dictated by Domenic Hairston MD @ 03/25/2025 7:33:59 AM <Yolie Rodriguez MD - Last Filed: 03/27/25 22:34> ECG Data Attestation: I personally reviewed and interpreted this ECG as follows: <Yolie Rodriguez MD - Last Filed: 03/27/25 22:34> Prior ECG tracings: available for review (Comparison EKG 02/27/2025) <Yolie Rodriguez MD - Last Filed: 03/27/25 22:34> Interpretation: Sinus rhythm with a rate of 97. There septal changes including a right bundle-branch block and chronic appearing ischemic changes which are unchanged from last month. T-wave inversions in the lateral leads is also unchanged. [place] appears normal. Intervals are normal with the exception of widening QRS are stable and unchanged. Overall stable EKG. <Yolie Rodriguez MD - Last Filed: 03/27/25 22:34> Discharge Plan Discharge Clinical Impression: Congestive heart failure, Chest pain <Yolie Rodriguez MD - Last Filed: 03/27/25 22:34> Patient Disposition: Admitted As Observation <Yolie Rodriguez MD - Last Filed: 03/27/25 22:34>
[2025-03-25 06:56] LABS: Hematocrit 37.7 % (37.0-53.0); Hemoglobin* 11.8 gm/dL (13.5-17.5); Immature Granulocytes Abs Auto 0.01 K/uL (0.00-0.30); Immature Granulocytes Pct Auto 0.2 %; Lymphocytes Absolute Auto 1.54 K/uL (0.90-2.90); Mean Corpuscular HGB Conc 31 gm/dL (32-36); Mean Corpuscular Hemoglobin 27 pg (26-34); Mean Corpuscular Volume 88 fL (80-100); RDW Coefficient of Variation % 13.0 % (11.5-15.5); Red Blood Count 4.31 m/uL (4.30-5.90); White Blood Count* 5.46 K/uL (4.50-11.00)
[2025-03-25 06:58] LABS: Slide Review Reflex No
[2025-03-25 07:01] LABS: Troponin, Point-of-Care* 0.03 ng/ml (0.01-0.04)
--- NOTE | 2025-03-25 07:09 | CRLHL7_ITS ---
For Patients: As a result of the Century Cures Act, medical imaging exams and procedure reports are released immediately into your electronic medical record. You may view this report before your referring provider. If you have questions, please contact your health care provider. Indication: Chest pain Technique: Single-view study obtained portable March 25, 2025 Comparison: February 27, 2025 Findings: As described below Impression: 1. Unchanged enlargement of the heart. 2. Mild vascular congestion. This probably indicates mild congestive heart failure. The patient had a similar finding February 27, 2025 the current findings are less severe. 3. No focal consolidation, infiltrate or mass. No pleural effusion or pneumothorax. Dictated by Domenic Hairston MD @ 03/25/2025 7:33:59 AM (Electronically Signed)
[2025-03-25 07:16] LABS: Albumin* 3.7 g/dL (3.3-5.0); Chloride* 104 mmol/L (96-114); Sodium* 137 mmol/L (135-149)
[2025-03-25 07:17] LABS: Potassium* 4.1 mmol/L (3.6-5.1)
[2025-03-25 07:20] LABS: Alanine Aminotransferase* 25 U/L (4-50); Alkaline Phosphatase* 37 U/L (40-150); Anion Gap 6 mEq/L (7-15); Aspartate Amino Transferase* 23 U/L (12-35); Bilirubin Total* 1.2 mg/dL (0.1-1.5); Blood Urea Nitrogen* 28 mg/dL (7-30); Calcium* 8.8 mg/dL (8.4-10.6); Carbon Dioxide* 27 mmol/L (20-32); Creatinine* 1.1 mg/dL (0.5-1.5); Est. Creatinine Clearance* 74.73; Estimated Glomerular Filt Rate 73 ml/min; Glucose* 187 mg/dL (60-115); Total Protein* 6.6 g/dL (6.0-8.3)
[2025-03-25 07:33] LABS: NT Pro B Type NatriureticPept* 7890 pg/mL (See Note)
[2025-03-25 08:46] LABS: Troponin, Point-of-Care* 0.03 ng/ml (0.01-0.04)
[2025-03-25] MEDS: FUROSEMIDE 10 MG/ML inj 40 MG IVP ×2 (09:10→15:44)
--- NOTE | 2025-03-25 12:06 | PM.IMHP1 ---
Assessment and Plan Assessment and plan (1) Chest pain: Problem comment: Troponins are reassuring today. Continue to monitor in the context of recurrent severe coronary artery disease with stenting last month. Optimize treatment as tolerated by blood pressure Status: Acute (2) Congestive heart failure: Problem comment: Heart failure exacerbation currently. Patient is had heart failure medicines held due to orthostasis and syncope. I am going to reinstitute heart failure medicines at low doses to see if he can tolerate this while he is inpatient. Continue IV furosemide for diuresis. Status: Acute (3) Diabetic neuropathy, type II diabetes mellitus: Problem comment: Continue to monitor. Patient will manage mealtime insulin dosing Status: Acute (4) Coronary artery disease: Problem comment: Coronary stents placed in 2008. 2022 had stenting again with a ejection fraction of 36%. November 2023 he had in stent stenosis with repeat stenting. Ejection fraction of 45-50% July 2024 he had a non STEMI. He had coronary stenting of LAD x2 and the 1st diagonal. Ejection fraction of 20%. 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 November 2024 hospitalized for syncope. Has had longstanding episodes of spells over the last 5 years. Spells include shouting and limb shaking with eyes open but not responsive. Occasionally has syncope as well. This has limited his heart failure treatment due to concern about orthostasis and syncope. He had a loop recorder which showed no significant cardiac dysrhythmia. February 16, 2025 hospitalized with non STEMI. Had complex stenting in the LAD. 02/27/2025 hospitalized with heart failure and elevated troponins. Diuresis was limited due to hypotension. 03/12/2025 hospitalized with syncope thought secondary to orthostatic hypotension from heart failure medications. Subsequently Entresto and Jardiance have been held. Lasix was made p.r.n.. Not using daily. Took 1 dose of 20 mg yesterday for increase in weight of 3 lb and increased dyspnea Status: Acute (5) Anxiety: Problem comment: Ongoing significant symptoms of anxiety related to heart disease symptoms Status: Inactive (6) Peripheral vascular disease: Problem comment: Likely has fairly severe peripheral artery disease based on exam today. Does not appear to be critical ischemia. Not symptomatic. Status: Acute (7) Obstructive sleep apnea: Problem comment: Noted in chart but patient is unaware of diagnosis and not on treatment Status: Acute (8) Stage 3 chronic kidney disease: Problem comment: Stable Status: Acute Plan 69-year-old male admitted to the hospital for management of advanced heart failure and severe coronary disease. Multiple hospitalizations for management of this over the last 6 weeks. Likely heart failure exacerbation is now due in part to holding heart failure medicines due to orthostatic symptoms and syncope. While he is hospitalized I would like to provide another trial of low-dose heart failure medicines to optimize heart failure care with guideline directed medical treatment. While he is here we will monitor for orthostasis and syncope. Monitor for unstable coronary disease as well. Anticipate this will take at least 2-3 days to decongest heart failure and titrate medications. Total Time Spent Total Time Spent: Total time spent today is 80 minutes in coordination of care, reviewing outside records, discussion with patient about ongoing management of heart failure, coronary disease, syncope. Hospitalist- H&P: MALLORY History of Present Illness Date Seen: 03/25/25 Chief complaint: chest pain Narrative: Dale Luna is a 69 year old male with advanced heart failure with reduced ejection fraction and severe coronary artery disease admitted to the hospital with progressive dyspnea and chest pain. This morning paced and had an episode of severe in ?shock or stabbing left chest pain. He took a nitroglycerin. This pain improved quickly though even when the paramedics arrived he was still having some chest discomfort. He received additional nitroglycerin and fentanyl. He has known coronary disease. Coronary stents placed in 2008. 2022 had stenting again with a ejection fraction of 36%. November 2023 he had in stent stenosis with repeat stenting. Ejection fraction of 45-50% July 2024 he had a non STEMI. He had coronary stenting of LAD x2 and the 1st diagonal. Ejection fraction of 20%. 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 November 2024 hospitalized for syncope. Has had longstanding episodes of spells over the last 5 years. Spells include shouting and limb shaking with eyes open but not responsive. Occasionally has syncope as well. This has limited his heart failure treatment due to concern about orthostasis and syncope. He had a loop recorder which showed no significant cardiac dysrhythmia. February 16, 2025 hospitalized with non STEMI. Had complex stenting in the LAD. 02/27/2025 hospitalized with heart failure and elevated troponins. Diuresis was limited due to hypotension. 03/12/2025 hospitalized with syncope thought secondary to orthostatic hypotension from heart failure medications. Subsequently Entresto and Jardiance have been held. Lasix was made p.r.n.. Echocardiogram from 03/18/2025: Final Impressions: Limited Echocardiogram performed 1. Moderate to severely increased LV size, severely reduced global systolic function with an estimated EF of 25 - 30%. 2. Multiple segmental abnormalities exist. See findings. 3. Right ventricular cavity size is normal, global systolic RV function is borderline. 4. The aortic valve is sclerotic, and trivial regurgitation. 5. The mitral valve is sclerotic, mild mitral regurgitation. 6. Echo contrast was administered to enhance visualization of all left ventricular segments. 7. No pericardial effusion. He is pending placement of a defibrillator for his advanced heart failure He reports ongoing feeling of lightheadedness and dizziness without syncope. He reports ongoing exertional dyspnea though he is able to walk his dog slowly for a mile. He now has orthopnea and is waking up at night from this. This week he had a 3 lb weight gain and did take 20 mg of furosemide yesterday. 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 ?M15.2 - Darek's nodes (with arthropathy) (ICD-10) Type II diabetes mellitus ?E11.9 - Type 2 diabetes mellitus without complications (ICD-10) Right carpal tunnel syndrome ?G56.01 - Carpal tunnel syndrome, right upper limb (ICD-10) Left carpal tunnel syndrome ?G56.02 - Carpal tunnel syndrome, left upper limb (ICD-10) Ulnar neuropathy of left upper extremity ?G56.22 - Lesion of ulnar nerve, left upper limb (ICD-10) Ulnar neuropathy of right upper extremity ?G56.21 - Lesion of ulnar nerve, right upper limb (ICD-10) Dupuytren's contracture of left hand ?M72.0 - Palmar fascial fibromatosis [Dupuytren] (ICD-10) Dupuytren's contracture of right hand ?M72.0 - Palmar fascial fibromatosis [Dupuytren] (ICD-10) Peripheral vascular disease ?I73.9 - Peripheral vascular disease, unspecified (ICD-10) Coronary artery disease ?I25.10 - Atherosclerotic heart disease of [place] coronary artery without angina pectoris (ICD-10) Non-ST elevated myocardial infarction ?I21.4 - Non-ST elevation (NSTEMI) myocardial infarction (ICD-10) Surgical History H/O heart artery stent ?Z95.5 - Presence of coronary angioplasty implant and graft (ICD-10) Amputated toe of left foot ?S98.132A - Complete traumatic amputation of one left lesser toe, initial encounter (ICD-10) Cervical vertebral fusion ?M43.22 - Fusion of spine, cervical region (ICD-10) S/P right rotator cuff repair ?Z98.890 - Other specified postprocedural states (ICD-10) History of cholecystectomy ?Z90.49 - Acquired absence of other specified parts of digestive tract (ICD-10) History of appendectomy ?Z90.49 - Acquired absence of other specified parts of digestive tract (ICD-10) Gastric bypass status for obesity ?Z98.84 - Bariatric surgery status (ICD-10) Family History (Updated 03/25/25 @ 12:40 by Eladio Hines MD) Sister Cardiovascular disease Other Colon cancer Social History (Updated 03/25/25 @ 12:41 by Eladio Hines MD) Narrative: He lives in [place] with his . 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 Now retired. He does not smoke. He drinks 1 beer a week. is healthcare power of civil attorney. Code status is full. What is your current living situation?: I presently have a place to live Problems where you live: no known problems In the past 12 months, utilities in danger of being shut off: no In past 12 months, lack of transportation kept you from medical appts, meetings, work, or getting things needed for daily living: no In the past 12 mos, have been you worried that your food would run out before you had money to buy more?: never true In the past 12 mos, the food you bought just didn't last and you didn't have money to buy more?: never true Smoking Status: Never smoker Do you use any of these nicotine containing products: None Second hand tobacco smoke exposure: No How often do you have a drink containing alcohol: 2-3 times a week How many standard drinks containing alcohol do you have on a typical day: 1 or 2 How often do you have six or more drinks on one occasion: Never AUDIT-C Alcohol total score: 3 Non-prescribed substance use: denies use Caffeine: Yes How often does anyone, including family, friends and others, physically hurt you: never How often does anyone, including family, friends and others, insult or talk down to you: never How often does anyone, including family, friends and others, threaten you with harm: never How often does anyone, including family, friends and others, scream or curse at you: never service: No Meds Home Medications and Allergies Home Medications ?Medication ?Instructions ?Recorded ?Confirmed ?Type atorvastatin 40 mg tablet 40 mg PO HS 01/08/23 03/25/25 History gabapentin 300 mg capsule 1,200 mg PO BID 01/08/23 03/25/25 History insulin glargine 100 unit/mL (3 20 unit subcut HS 01/08/23 03/25/25 History mL) subcutaneous pen (Lantus Solostar U-100 Insulin) insulin lispro 100 unit/mL 6 - 10 unit subcut TIDWM 01/08/23 03/25/25 History subcutaneous pen metformin 500 mg tablet,extended 1,000 mg PO BIDWM 01/08/23 03/25/25 History release 24 hr insulin lispro 100 unit/mL 1 sliding scale dose subcut 05/18/24 03/25/25 History subcutaneous cartridge (Humalog USEASDIRECTD U-100 Insulin) acetaminophen 500 mg tablet 500 mg PO TID PRN 07/14/24 03/25/25 History aspirin 81 mg tablet,delayed 81 mg PO DAILY 07/14/24 03/25/25 History release (Adult Low Dose Aspirin) empagliflozin 10 mg tablet 10 mg PO DAILY 07/14/24 03/25/25 History (Jardiance) multivitamin (Daily Multi-Vitamin 1 tab PO DAILY 07/14/24 03/25/25 History tablet) nitroglycerin 0.4 mg sublingual 0.4 mg sublingual Q5-15M PRN 07/14/24 03/25/25 History tablet furosemide 20 mg tablet (Lasix) 40 mg PO QAM 08/31/24 03/25/25 History duloxetine 60 mg capsule,delayed 60 mg PO DAILY 03/25/25 03/25/25 History release isosorbide mononitrate 60 mg 60 mg PO DAILY 03/25/25 03/25/25 History tablet,extended release 24 hr oxycodone 10 mg tablet 10 mg PO BID 03/25/25 03/25/25 History sacubitril 24 mg-valsartan 26 mg 1 tab PO BID 03/25/25 03/25/25 History tablet (Entresto) ticagrelor 90 mg tablet (Brilinta) 90 mg PO BID 03/25/25 03/25/25 History Allergies Allergy/AdvReac Type Severity Reaction Status Date / Time propoxyphene (From Allergy Mild Verified 02/27/25 12:33 Darvocet-N) bupropion (From Wellbutrin) Allergy Verified 02/27/25 12:33 Exam Narrative: Exam Narrative: He is alert and appears in no distress. He is oriented to his circumstances and able to give his own history. Eyes normal. Oropharynx with small airway. No mucosal abnormalities. Neck is supple without mass or adenopathy. No jugular venous distension. Respirations are clear to auscultation with crackles up about 1/3 bilaterally. No wheezing. Cardiovascular: S1, S2, regular rate and rhythm. Abdomen: Bowel sounds active. Abdomen is soft without tenderness. Around his umbilicus he has small excoriated ulceration with crusting but minimal surrounding erythema. External genitalia normal. Extremities bilaterally with mild erythema and mild edema. Left foot and ankle are cold to touch. He has very sluggish circulation. He has absent his 1st and 2nd toes on his left foot from previous surgery no open ulcers. No palpable pedal pulses. Right lower extremity is cool to touch. No palpable pedal pulse. No open ulcers. Sluggish capillary refill Const: Vital Signs, click to edit/add: Vital Signs - 24 hr 03/25/25 06:32 03/25/25 06:36 03/25/25 06:43 Temperature 98.0 F Pulse Rate 94 92 Pulse Rate [Left P ulse Oximeter] 95 Pulse Rate [Right Radial] Respiratory Rate 20 29 H 10 L Blood Pressure 110/73 Blood Pressure [Ri ght Arm] Blood Pressure [Ri ght Upper Arm] 112/70 Pulse Oximetry 96 95 [facility] 03/25/25 06:45 03/25/25 07:00 03/25/25 07:01 Temperature Pulse Rate 93 92 92 Pulse Rate [Left P ulse Oximeter] Pulse Rate [Right Radial] Respiratory Rate 22 11 L 8 L Blood Pressure 107/72 Blood Pressure [Ri ght Arm] Blood Pressure [Ri ght Upper Arm] Pulse Oximetry 95 93 95 [facility] 03/25/25 07:15 03/25/25 07:30 03/25/25 07:32 Temperature Pulse Rate 94 94 95 Pulse Rate [Left P ulse Oximeter] Pulse Rate [Right Radial] Respiratory Rate 19 11 L 11 L Blood Pressure 122/76 Blood Pressure [Ri ght Arm] Blood Pressure [Ri ght Upper Arm] Pulse Oximetry 95 96 94 [facility] 03/25/25 07:45 03/25/25 08:00 03/25/25 08:02 Temperature Pulse Rate 96 98 98 Pulse Rate [Left P ulse Oximeter] Pulse Rate [Right Radial] Respiratory Rate 21 29 H 7 L Blood Pressure 128/103 H Blood Pressure [Ri ght Arm] Blood Pressure [Ri ght Upper Arm] Pulse Oximetry 95 97 83 L [facility] 03/25/25 08:15 03/25/25 08:30 03/25/25 08:32 Temperature Pulse Rate 97 98 98 Pulse Rate [Left P ulse Oximeter] Pulse Rate [Right Radial] Respiratory Rate 12 8 L 16 Blood Pressure 125/84 Blood Pressure [Ri ght Arm] Blood Pressure [Ri ght Upper Arm] Pulse Oximetry 91 86 L 92 Oxygen Delivery In thod 03/25/25 08:33 03/25/25 08:45 03/25/25 09:00 Temperature Pulse Rate 98 99 104 H Pulse Rate [Left P ulse Oximeter] Pulse Rate [Right Radial] Respiratory Rate 23 28 H 29 H Blood Pressure Blood Pressure [Ri ght Arm] Blood Pressure [Ri ght Upper Arm] Pulse Oximetry 90 89 92 Oxygen Delivery Me thod 03/25/25 09:02 03/25/25 09:15 03/25/25 09:30 Temperature Pulse Rate 104 H 101 H 103 H Pulse Rate [Left P ulse Oximeter] Pulse Rate [Right Radial] Respiratory Rate 22 21 20 Blood Pressure 114/94 H Blood Pressure [Ri ght Arm] Blood Pressure [Ri ght Upper Arm] Pulse Oximetry 92 91 92 Oxygen Delivery Me thod 03/25/25 09:32 03/25/25 09:45 03/25/25 10:00 Temperature Pulse Rate 103 H 106 H Pulse Rate [Left P ulse Oximeter] Pulse Rate [Right Radial] Respiratory Rate 26 H 25 H 16 Blood Pressure 124/103 H Blood Pressure [Ri ght Arm] Blood Pressure [Ri ght Upper Arm] Pulse Oximetry 94 92 Oxygen Delivery Me thod 03/25/25 10:01 03/25/25 10:15 03/25/25 10:30 Temperature Pulse Rate 103 H Pulse Rate [Left P ulse Oximeter] Pulse Rate [Right Radial] Respiratory Rate 14 22 18 Blood Pressure 132/90 H Blood Pressure [Ri ght Arm] Blood Pressure [Ri ght Upper Arm] Pulse Oximetry 95 Oxygen Delivery Me thod 03/25/25 10:32 03/25/25 10:45 03/25/25 11:03 Temperature 97.9 F Pulse Rate 103 H 102 H Pulse Rate [Left P ulse Oximeter] Pulse Rate [Right Radial] 101 H Respiratory Rate 24 22 20 Blood Pressure 127/82 Blood Pressure [Ri ght Arm] 116/79 Blood Pressure [Ri ght Upper Arm] Pulse Oximetry 95 96 97 Oxygen Delivery Me thod Room Air Documenting provider has reviewed patient's vital signs: yes Hospitalist - H&P: Result Labs Labs: Short CBC 03/25/25 Range/Units 06:30 WBC 5.46 (4.50-11.00) K/uL Hgb 11.8 L (13.5-17.5) gm/dL Hct 37.7 (37.0-53.0) % Plt Count 156 (140-440) K/uL BMP 03/25/25 06:30 Sodium 137 Potassium 4.1 Chloride 104 Carbon Dioxide 27 BUN 28 Creatinine 1.1 Glucose 187 H Calcium 8.8 Cardiac Enzymes 03/25/25 Range/Units 06:30 Troponin I 0.02 (0.01-0.04) ng/mL Liver Function 03/25/25 Range/Units 06:30 Total Bilirubin 1.2 (0.1-1.5) mg/dL AST 23 (12-35) U/L ALT 25 (4-50) U/L Alkaline Phosphatase 37 L (40-150) U/L Albumin 3.7 (3.3-5.0) g/dL Imaging Chest x-ray: Radiologist's impression: ndication: Chest pain Technique: Single-view study obtained portable March 25, 2025 Comparison: February 27, 2025 Findings: As described below Impression: 1. Unchanged enlargement of the heart. 2. Mild vascular congestion. This probably indicates mild congestive heart failure. The patient had a similar finding February 27, 2025 the current findings are less severe. 3. No focal consolidation, infiltrate or mass. No pleural effusion or pneumothorax.
--- NOTE | 2025-03-25 12:31 | RESP.RT ---
Found in notes; patient has history of sleep apnea. Patient sitting up in bed breathing regular/easy on room air, SaO2 94%, rate 20/minute eating lunch. Asked patient if he had history of sleep apnea or trouble sleeping and a CPAP machine. Patient stated was long time ago they thought that, but no, am a good sleeper and no machine.
[2025-03-25] MEDS: INSULIN ASPART 100 UNIT/ML SUBCUT ×2 (13:02→18:25)
[2025-03-25] MEDS: EMPAGLIFLOZIN 10 MG TABLET PO (13:02)
[2025-03-25] MEDS: POTASSIUM BICARB 25 MEQ EFFERVESCENT TAB PO ×2 (13:02→15:43)
--- NOTE | 2025-03-25 13:21 | CRLHL7_ITS ---
For Patients: As a result of the Century Cures Act, medical imaging exams and procedure reports are released immediately into your electronic medical record. You may view this report before your referring provider. If you have questions, please contact your health care provider. EXAM: Bilateral lower extremity arterial Doppler. TECHNIQUE: Color Doppler and spectral analysis of the lower extremity arteries. INDICATION: Absent pedal pulses. COMPARISON: None. FINDINGS: RIGHT: CRUISE STAFF MEMBER: 81 cm/sec; triphasic waveforms SFA PROX: 69 cm/sec; triphasic waveforms SFA MID: 69 cm/sec; triphasic waveforms SFA DIST: 46 cm/sec; triphasic waveforms POP : 58 cm/sec; triphasic waveform ELECTRICAL LINE WORKER: 63 cm/sec; triphasic waveforms Kyra: 26 cm/sec; biphasic waveforms DULCE: 40 cm/sec; triphasic waveforms DPA: 31 cm/sec; triphasic at the ankle and biphasic waveform at the foot LEFT: CRUISE STAFF MEMBER: 59 cm/sec; biphasic and triphasic waveforms SFA PROX: 76 cm/sec; triphasic waveforms SFA MID: 59 cm/sec; triphasic waveforms SFA DIST: 47 cm/sec; triphasic waveforms POP: 40 cm/sec; biphasic waveforms ELECTRICAL LINE WORKER: 51 cm/sec; biphasic waveforms Kyra: 20 cm/sec; biphasic waveforms DULCE: 46 cm/sec; biphasic waveforms with aliasing DPA: 8 cm/sec; monophasic waveforms IMPRESSION: Right lower extremity: No large vessel occlusion or high-grade stenosis. Likely mild peroneal and dorsalis pedis artery stenoses. Left lower extremity: No large vessel occlusion. Blunted monophasic dorsalis pedis artery waveform as evidence for severe stenosis. Predominantly biphasic waveforms at and below the knee likely reflecting mild stenoses. Dictated by Camilo Altamirano MD @ 03/25/2025 2:57:16 PM (Electronically Signed)
[2025-03-25] MEDS: METFORMIN ER 500 MG 1000 MG PO (18:24)
--- NOTE | 2025-03-25 19:38 | CRLHL7_ITS ---
For Patients: As a result of the Century Cures Act, medical imaging exams and procedure reports are released immediately into your electronic medical record. You may view this report before your referring provider. If you have questions, please contact your health care provider. Indication: Chest pain and shortness of breath. Technique: Chest 1 view. Comparison: Earlier same day chest radiograph. Findings/Impression: Heart and mediastinum: Unchanged cardiomediastinal contours. Left chest loop recorder. Lungs and pleural spaces: Redemonstrated diffuse interstitial prominence, which may be artifactual, though could reflect mild pulmonary edema or pneumonia. No discrete pleural effusion or pneumothorax. Dictated by Dank Nicolas MD @ 03/25/2025 8:34:33 PM (Electronically Signed)
[2025-03-25 19:42] LABS: HCO3 VBG 32 mmol/L (21-28); Lactate* 1.6 mmol/L (0.5-1.9); PCO2 VBG 42 mmHG (40-50); PO2 VBG < 30.1 mmHG (25-47); pH VBG 7.488 (7.32-7.43)
[2025-03-25 19:50] LABS: Chloride* 99 mmol/L (96-114); Potassium* 4.0 mmol/L (3.6-5.1); Sodium* 138 mmol/L (135-149)
[2025-03-25 19:52] LABS: Blood Urea Nitrogen* 30 mg/dL (7-30); Creatinine* 1.3 mg/dL (0.5-1.5); Est. Creatinine Clearance* 63.23; Estimated Glomerular Filt Rate 60 ml/min
[2025-03-25 19:53] LABS: Anion Gap 7 mEq/L (7-15); Calcium* 9.5 mg/dL (8.4-10.6); Carbon Dioxide* 32 mmol/L (20-32); Glucose* 219 mg/dL (60-115)
[2025-03-25 19:55] LABS: D Dimer Quantitative* 0.29 ug/ml (0.00-0.50)
[2025-03-25] MEDS: ISOSORBIDE MONONITRATE ER 30 MG TAB PO (20:07)
[2025-03-25] MEDS: METOPROLOL SUCCINATE (XL) 25 MG TAB 12.5 MG PO (20:07)
--- NOTE | 2025-03-25 20:14 | W.PM.CROSSCO ---
Subjective Subjective Interval history: I got a call from Mr. Luna's nurse around 7 : 20 p.m., patient was complaining of chest pain, retrosternal localized described as heaviness. vital signs were stable during the whole episode, with his systolic blood pressure being above 100 mm hg and his heart rate did not increase above 105-110 beats per minute. Cardiac telemetry was reviewed and it did not show any arrhythmias. Patient was given sublingual nitro and rainbow labs were ordered including cardiac enzymes, EKG and a chest x-ray. During this episode patient had a syncopal event and he was unresponsive for about 20 - 30 seconds, but then he regained consciousness after he was put into Trendelenburg position. patient improved 10 minutes later and he was able to answer my questions. When I asked him about history of seizures and if he ever had and EEG done, he said that he had an EEG at [facility] in a did not show an epileptic activity. Patient has a loop recorder which also did not show arrhythmia in the past. when I asked him if he took his beta-abdoul today he states that he did not take it. N.B: patient is on DAPT for recent cardiac stenting. Objective Objective Data Details: - troponin negative, unremarkable BMP, VBG, D-dimer & lactate. - EKG showing right bundle branch block that is old, T-wave inversions at V3 V4 V5 and V6, increased QTC at 518. - Chest X-ray unchanged from this morning's x-ray, no mediastinal widening. Assessment and Plan Assessment and plan (1) Unstable angina: Problem comment: - I resumed his p.o. metoprolol. - I changed the timing of isosorbide mononitrate to start now. - patient will need optimization of his coronary artery disease medical management. - if adjustment of his beta-abdoul and / or isosorbide mononitrate dosing does not control his chronic chest pain, a trial of Ranolazine might be helpful. Status: Acute (2) Syncope: Problem comment: Differential diagnosis includes Vasovagal v/s cardiac. unlikely to be orthostatic hypotension because patient's blood pressure was excellent all the time and he was laying down on his bed when he briefly lost consciousness. seizures might be the cause of a brief loss of consciousness but patient mentioned that he got an EEG at [facility] in the past to rule out seizures. Status: Acute
[2025-03-25] MEDS: ENOXAPARIN 40 MG/0.4 ML INJ SUBCUT (21:01)
[2025-03-25] MEDS: ACETAMINOPHEN 500 MG TABLET PO (21:02)
[2025-03-25] MEDS: ATORVASTATIN CALCIUM 40 MG TABLET PO (21:02)
[2025-03-25] MEDS: TICAGRELOR 90 MG TABLET PO (21:02)
[2025-03-25] MEDS: GABAPENTIN 300 MG CAPSULE 1200 MG PO (21:03)
[2025-03-25] MEDS: SODIUM CHLORIDE 0.9 % (FLUSH) 10 ML SYRINGE 5 ML IVF (21:10)
--- NOTE | 2025-03-25 21:34 | PC.NURSE ---
Nurse called to patient's room after complaints of 8/10 chest pain. Pt states it feels like really heavy pressure. MD called to room. 1 tab of nitro given per the eMAR. Labs and EKG obtained. While staff were in the room completing assessment, patient became unconscious for several seconds. Pulse check confirmed that the patient maintained a pulse. After sternal rub patient regained consciousness. New med orders obtained from MD. Loya held per MD recommendations.
[2025-03-26] VITALS (24 sets, daily range): BP systolic 77–122; BP diastolic 55–81; PULSE 88–109; RESP 16–18; TEMP 36.4–37; O2SAT 94–99
[2025-03-26] MEDS: 0.9 % SODIUM CHLORIDE 250 ml 250 ML IV (01:12)
[2025-03-26 06:37] LABS: Hematocrit 40.1 % (37.0-53.0); Hemoglobin* 12.7 gm/dL (13.5-17.5); Immature Granulocytes Abs Auto 0.00 K/uL (0.00-0.30); Immature Granulocytes Pct Auto 0.0 %; Lymphocytes Absolute Auto 1.41 K/uL (0.90-2.90); Mean Corpuscular HGB Conc 32 gm/dL (32-36); Mean Corpuscular Hemoglobin 27 pg (26-34); Mean Corpuscular Volume 86 fL (80-100); RDW Coefficient of Variation % 13.0 % (11.5-15.5); Red Blood Count 4.67 m/uL (4.30-5.90); White Blood Count* 4.79 K/uL (4.50-11.00)
[2025-03-26 06:41] LABS: Slide Review Reflex No
--- NOTE | 2025-03-26 06:41 | PC.NURSE ---
The patient is pleasant and cooperative with cares, with everything going on he does report feeling quite anxious. The patient has been hypotensive throughout the night, MD was contacted 2x regarding this and would like us to monitor for now. The patient is not symptomatic with the low BPs. The patient did not sleep well due to being worries. Voiding in bedside urinal. Reports that he has chronic pain that he deals with. After initial contact to the MD, he ordered a 250cc bolus... the patient tolerated this well without any SOB. Bp's were closely monitored throughout the night. Call light within reach. Tele 1st degree heart block. Ramya DIANA BSN
[2025-03-26 06:55] LABS: Chloride* 100 mmol/L (96-114); Potassium* 3.4 mmol/L (3.6-5.1); Sodium* 140 mmol/L (135-149)
[2025-03-26 06:58] LABS: Blood Urea Nitrogen* 32 mg/dL (7-30); Calcium* 9.4 mg/dL (8.4-10.6); Carbon Dioxide* 32 mmol/L (20-32); Creatinine* 1.3 mg/dL (0.5-1.5); Est. Creatinine Clearance* 63.23; Estimated Glomerular Filt Rate 60 ml/min; Glucose* 134 mg/dL (60-115)
[2025-03-26 06:59] LABS: Anion Gap 8 mEq/L (7-15)
[2025-03-26] MEDS: DULOXETINE 30 MG CAPSULE DR 60 MG PO (08:36)
[2025-03-26] MEDS: GABAPENTIN 300 MG CAPSULE 1200 MG PO ×2 (08:36→21:34)
[2025-03-26] MEDS: MULTIVITAMIN/MINERALS 1 TABLET 1 TAB PO (08:37)
[2025-03-26] MEDS: METFORMIN ER 500 MG 1000 MG PO ×2 (08:37→17:12)
[2025-03-26] MEDS: METOPROLOL SUCCINATE (XL) 25 MG TAB PO (08:37)
[2025-03-26] MEDS: EMPAGLIFLOZIN 10 MG TABLET PO (08:38)
[2025-03-26] MEDS: ISOSORBIDE MONONITRATE ER 30 MG TAB PO (08:38)
[2025-03-26] MEDS: SODIUM CHLORIDE 0.9 % (FLUSH) 10 ML SYRINGE 5 ML IVF ×2 (08:39→21:39)
[2025-03-26] MEDS: ASPIRIN 81 MG TABLET EC PO (08:39)
[2025-03-26] MEDS: TICAGRELOR 90 MG TABLET PO ×2 (08:43→21:50)
--- NOTE | 2025-03-26 09:07 | NUTR.NU ---
RDN with nutrition screen for heart healthy diet. Patient admitted with chest pain and CHF exacerbation. Medical history includes, but not limited to type 2 diabetes mellitus with diabetic neuropathy, CAD, anxiety, peripheral vascular disease, KELVIN, and CKD stage 3. Patient reports a decreased appetite for ~2 months, but notes no significant changes in oral intakes. Patient eats 2 meals/day with snacks prn. Per routeman, patient has been eating 75-100% of most meals recorded during hospitalization. Current weight 228lbs, height 6ft 2in, and BMI 29.3 kg/m2. Weight history: 02/27/25 246lbs, 01/22/25 249lbs, 11/20/24 240lbs, 08/31/24 235lbs, 08/02/24 244lbs. Weight fluctuations likely r/t CHF diagnosis, fluid status, and recent hospitalizations. RDN will continue to follow weight trends during hospitalization. Patient reports that his does the cooking and grocery shopping. Patient declined nutrition education and materials on heart failure nutrition therapy and the diabetic diet. Patient reports being familiar with these diets and has had recent education during his recent hospitalization at [facility]. No further nutrition intervention needed at this time. RDN will continue to follow prn.
[2025-03-26] MEDS: POTASSIUM BICARB 25 MEQ EFFERVESCENT TAB PO (10:33)
[2025-03-26] MEDS: INSULIN ASPART 100 UNIT/ML SUBCUT ×2 (12:22→17:11)
[2025-03-26] MEDS: SPIRONOLACTONE 25 MG TABLET PO (12:22)
--- NOTE | 2025-03-26 15:20 | P.IMPN_ITS ---
Assessment and Plan Assessment and plan (1) Congestive heart failure: Problem comment: Heart failure exacerbation currently. Patient is had heart failure medicines held due to orthostasis and syncope. I am going to reinstitute heart failure medicines at low doses to see if he can tolerate this while he is inpatient. Optimize guideline directed therapy as tolerated. Due to low blood pressure will hold Entresto today. Resume diuretic with spironolactone rather than furosemide today Status: Acute (2) Unstable angina: Problem comment: Ongoing episodes of chest pain. Continue p.r.n. nitro. Continue isosorbide at 30 mg daily. I have increased his metoprolol 25 mg b.i.d. due to his resting tachycardia. Status: Acute (3) Syncope: Problem comment: He is having spells of altered consciousness. There has been concern that these are due to orthostatic hypotension caused by his heart medicines. His indicates that she thinks these are more related to anxiety or panic attack. Continue to evaluate and monitor. Status: Acute (4) Spell of altered consciousness: Problem comment: Continue to evaluate and manage as we titrate his heart medications. Status: Acute (5) Chest pain: Problem comment: Ongoing episodes of chest pain with normal troponins. Possible angina versus anxiety Status: Acute (6) Diabetic neuropathy, type II diabetes mellitus: Problem comment: Continue to monitor. Patient will manage mealtime insulin dosing Status: Acute (7) Peripheral vascular disease: Problem comment: Likely has fairly severe peripheral artery disease based on exam today. Does not appear to be critical ischemia. Arterial Doppler shows monophasic flow in the left foot and biphasic in the right Status: Acute (8) Coronary artery disease: Problem comment: Coronary stents placed in 2008. 2022 had stenting again with a ejection fraction of 36%. November 2023 he had in stent stenosis with repeat stenting. Ejection fraction of 45-50% July 2024 he had a non STEMI. He had coronary stenting of LAD x2 and the 1st diagonal. Ejection fraction of 20%. 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 November 2024 hospitalized for syncope. Has had longstanding episodes of spells over the last 5 years. Spells include shouting and limb shaking with eyes open but not responsive. Occasionally has syncope as well. This has limited his heart failure treatment due to concern about orthostasis and syncope. He had a loop recorder which showed no significant cardiac dysrhythmia. February 16, 2025 hospitalized with non STEMI. Had complex stenting in the LAD. 02/27/2025 hospitalized with heart failure and elevated troponins. Diuresis was limited due to hypotension. 03/12/2025 hospitalized with syncope thought secondary to orthostatic hypotension from heart failure medications. Subsequently Entresto and Jardiance have been held. Lasix was made p.r.n.. Not using daily. Took 1 dose of 20 mg yesterday for increase in weight of 3 lb and increased dyspnea Status: Acute (9) Obstructive sleep apnea: Problem comment: Noted in chart but patient is unaware of diagnosis and not on treatment Status: Acute (10) Stage 3 chronic kidney disease: Problem comment: Stable Status: Acute (11) Hypotension: Problem comment: Continue to advance heart failure medicines and anti anginal medicines to the extent that his blood pressure and symptoms will allow. Focus more on orthostatic symptoms. Status: Acute Plan Continue in hospital for management of ongoing heart failure and coronary disease and symptoms of chest pain, syncope/altered level of consciousness, dyspnea. Total time spent today is 65 minutes in coordination of care and discussing with patient, and other providers ongoing management of difficult symptoms and advanced heart disease Subjective Date Seen: 03/26/25 Interval history: Dale Luna is a 69 year old male with advanced heart failure with reduced ejection fraction and severe coronary artery disease admitted to the hospital with progressive dyspnea and chest pain. This morning paced and had an episode of severe in ?shock or stabbing left chest pain. He took a nitroglycerin. This pain improved quickly though even when the paramedics arrived he was still having some chest discomfort. He received additional nitroglycerin and fentanyl. He has known coronary disease. Coronary stents placed in 2008. 2022 had stenting again with a ejection fraction of 36%. November 2023 he had in stent stenosis with repeat stenting. Ejection fraction of 45-50% July 2024 he had a non STEMI. He had coronary stenting of LAD x2 and the 1st diagonal. Ejection fraction of 20%. 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 November 2024 hospitalized for syncope. Has had longstanding episodes of spells over the last 5 years. Spells include shouting and limb shaking with eyes open but not responsive. Occasionally has syncope as well. This has limited his heart failure treatment due to concern about orthostasis and syncope. He had a loop recorder which showed no significant cardiac dysrhythmia. February 16, 2025 hospitalized with non STEMI. Had complex stenting in the LAD. 02/27/2025 hospitalized with heart failure and elevated troponins. Diuresis was limited due to hypotension. 03/12/2025 hospitalized with syncope thought secondary to orthostatic hypotension from heart failure medications. Subsequently Entresto and Jardiance have been held. Lasix was made p.r.n.. Echocardiogram from 03/18/2025: Final Impressions: Limited Echocardiogram performed 1. Moderate to severely increased LV size, severely reduced global systolic function with an estimated EF of 25 - 30%. 2. Multiple segmental abnormalities exist. See findings. 3. Right ventricular cavity size is normal, global systolic RV function is borderline. 4. The aortic valve is sclerotic, and trivial regurgitation. 5. The mitral valve is sclerotic, mild mitral regurgitation. 6. Echo contrast was administered to enhance visualization of all left ventricular segments. 7. No pericardial effusion. He is pending placement of a defibrillator for his advanced heart failure. He has an implanted heart monitor which has not shown any significant dysrhythmias even with his episodes of spells/syncope. Cross cover note from evening of March 25: I got a call from Mr. Luna's nurse around 7 : 20 p.m., patient was complaining of chest pain, retrosternal localized described as heaviness. vital signs were stable during the whole episode, with his systolic blood pressure being above 100 mm hg and his heart rate did not increase above 105-110 beats per minute. Cardiac telemetry was reviewed and it did not show any arrhythmias. Patient was given sublingual nitro and rainbow labs were ordered including cardiac enzymes, EKG and a chest x-ray. During this episode patient had a syncopal event and he was unresponsive for about 20 - 30 seconds, but then he regained consciousness after he was put into Trendelenburg position. patient improved 10 minutes later and he was able to answer my questions. When I asked him about history of seizures and if he ever had and EEG done, he said that he had an EEG at [place] in a did not show an epileptic activity. Patient has a loop recorder which also did not show arrhythmia in the past. when I asked him if he took his beta-abdoul today he states that he did not take it. N.B: patient is on DAPT for recent cardiac stenting. 03/26/2025: I met with the patient and his to review his current status. His reports that he is having ongoing episodes of symptoms including lightheadedness and dizziness when he is up and about, spells of altered consciousness which she believes are panic attacks, chest pain and dyspnea. She reports he commonly has spells where he will become unresponsive but typically has his eyes open and may be having vocalizations but not otherwise responding to the people around him. These are brief and self-limited. Apparently cardiology evaluation has not shown any cardiac dysrhythmias when these occur. Apparently evaluation suggested these are not seizures. He commonly has chest pain at home as well. He often feels dizzy/lightheaded at home. He has had relatively low blood pressure but his blood pressure has not been routinely checked when he is having symptoms. He had acute chest pain and dyspnea that was relieved with lorazepam today. We discussed his ongoing symptoms of dizziness, chest pain, dyspnea and spells. The optimal treatment for his heart disease will lower his blood pressure and may be the cause of some of his symptoms though some of his dizziness, dyspnea, spells and chest pain may also be related to his anxiety. I recommend that we continue to optimize his anti anginal and heart failure medications with close monitoring of symptoms and blood pressure. Exam Narrative: Exam Narrative: He is alert and appears in no distress. Respirations are clear to auscultation except for a few basilar crackles. Cardiovascular: S1, S2, regular borderline tachycardia. No murmur gallop or rub. Abdomen: Is soft without tenderness. Extremities without edema. Left lower extremity is still cool to touch. Right lower extremity is mildly cool to touch. I cannot palpate a pedal pulse Const: Vital Signs, click to edit/add: Vital Signs - 24 hr 03/25/25 15:30 03/25/25 19:16 03/25/25 19:21 Temperature Pulse Rate Pulse Rate [Right Radial] 104 H 100 Pulse Rate [orthos tatic lying] 96 Pulse Rate [orthos tatic sitting] 98 Pulse Rate [orthos tatic standing] 105 H Respiratory Rate 18 Blood Pressure [Ri ght Arm] 112/65 102/62 Blood Pressure [or thostatic lying] 124/84 Blood Pressure [or thostatic sitting] 113/75 Blood Pressure [or thostatic standing ] 102/70 Pulse Oximetry Oxygen Delivery Me thod 03/25/25 19:26 03/25/25 23:00 03/25/25 23:00 Temperature Pulse Rate 99 Pulse Rate [Right Radial] 110 H Pulse Rate [orthos tatic lying] Pulse Rate [orthos tatic sitting] Pulse Rate [orthos tatic standing] Respiratory Rate 18 Blood Pressure [Ri ght Arm] 119/77 Blood Pressure [or thostatic lying] Blood Pressure [or thostatic sitting] Blood Pressure [or thostatic standing ] Pulse Oximetry 96 Oxygen Delivery Nc thod Room Air 03/25/25 23:30 03/25/25 23:44 03/26/25 00:30 Temperature 97.7 F Pulse Rate Pulse Rate [Right Radial] 110 H Pulse Rate [orthos tatic lying] Pulse Rate [orthos tatic sitting] Pulse Rate [orthos tatic standing] Respiratory Rate 18 Blood Pressure [Ri ght Arm] 80/63 L 90/64 93/55 L Blood Pressure [or thostatic lying] Blood Pressure [or thostatic sitting] Blood Pressure [or thostatic standing ] Pulse Oximetry 96 Oxygen Delivery Nc thod 03/26/25 00:45 03/26/25 01:00 03/26/25 01:56 Temperature Pulse Rate Pulse Rate [Right Radial] 95 Pulse Rate [orthos tatic lying] Pulse Rate [orthos tatic sitting] Pulse Rate [orthos tatic standing] Respiratory Rate 18 Blood Pressure [Ri ght Arm] 88/58 L 102/64 97/64 Blood Pressure [or thostatic lying] Blood Pressure [or thostatic sitting] Blood Pressure [or thostatic standing ] Pulse Oximetry Oxygen Delivery Nc thod 03/26/25 02:42 03/26/25 03:00 03/26/25 03:15 Temperature 98.0 F Pulse Rate Pulse Rate [Right Radial] 103 H Pulse Rate [orthos tatic lying] Pulse Rate [orthos tatic sitting] Pulse Rate [orthos tatic standing] Respiratory Rate 18 Blood Pressure [Ri ght Arm] 101/66 86/64 L 86/59 L Blood Pressure [or thostatic lying] Blood Pressure [or thostatic sitting] Blood Pressure [or thostatic standing ] Pulse Oximetry 96 Oxygen Delivery Nc thod Room Air 03/26/25 03:25 03/26/25 03:35 03/26/25 03:42 Temperature Pulse Rate Pulse Rate [Right Radial] Pulse Rate [orthos tatic lying] Pulse Rate [orthos tatic sitting] Pulse Rate [orthos tatic standing] Respiratory Rate Blood Pressure [Ri ght Arm] 77/66 L 102/66 90/55 L Blood Pressure [or thostatic lying] Blood Pressure [or thostatic sitting] Blood Pressure [or thostatic standing ] Pulse Oximetry Oxygen Delivery Me thod 03/26/25 05:55 03/26/25 07:00 03/26/25 07:45 Temperature 98.6 F Pulse Rate 97 Pulse Rate [Right Radial] 97 Pulse Rate [orthos tatic lying] Pulse Rate [orthos tatic sitting] Pulse Rate [orthos tatic standing] Respiratory Rate 16 Blood Pressure [Ri ght Arm] 103/57 L 122/74 Blood Pressure [or thostatic lying] Blood Pressure [or thostatic sitting] Blood Pressure [or thostatic standing ] Pulse Oximetry 94 Oxygen Delivery Me thod Room Air 03/26/25 08:23 03/26/25 08:23 03/26/25 08:35 Temperature Pulse Rate Pulse Rate [Right Radial] 100 Pulse Rate [orthos tatic lying] Pulse Rate [orthos tatic sitting] Pulse Rate [orthos tatic standing] Respiratory Rate 16 Blood Pressure [Ri ght Arm] 115/74 Blood Pressure [or thostatic lying] Blood Pressure [or thostatic sitting] Blood Pressure [or thostatic standing ] Pulse Oximetry 94 Oxygen Delivery Me thod Room Air 03/26/25 10:19 03/26/25 11:24 03/26/25 15:07 Temperature 98.0 F Pulse Rate Pulse Rate [Right Radial] 88 92 96 Pulse Rate [orthos tatic lying] Pulse Rate [orthos tatic sitting] Pulse Rate [orthos tatic standing] Respiratory Rate 16 16 16 Blood Pressure [Ri ght Arm] 111/73 118/81 113/80 Blood Pressure [or thostatic lying] Blood Pressure [or thostatic sitting] Blood Pressure [or thostatic standing ] Pulse Oximetry 98 96 99 Oxygen Delivery Me thod Room Air Room Air Room Air Labs Labs: Laboratory Results - last 24 hr 03/25/25 03/26/25 19:30 06:16 WBC 4.79 RBC 4.67 Hgb 12.7 L Hct 40.1 MCV 86 MCH 27 MCHC 32 RDW Coeff of Lou 13.0 Plt Count 158 Neut % (Auto) 58.5 Lymph % (Auto) 29.4 [place] % (Auto) 9.4 Eos % (Auto) 2.3 Baso % (Auto) 0.4 Neut # (Auto) 2.80 Lymph # (Auto) 1.41 [place] # (Auto) 0.50 Eos # (Auto) 0.11 Baso # (Auto) 0.02 Abs Immat Gran (auto) 0.00 Imm/Tot Granulo (auto) 0.0 D-Dimer Quant (PE/DVT) 0.29 VBG pH 7.488 H VBG pCO2 42 VBG pO2 < 30.1 VBG HCO3 32 H Sodium 138 140 Potassium 4.0 3.4 L Chloride 99 100 Carbon Dioxide 32 32 Anion Gap 7 8 BUN 30 32 H Creatinine 1.3 1.3 Estimated Creat Clear 63.23 63.23 Estimated GFR 60 60 Glucose 219 H 134 H Lactate 1.6 Calcium 9.5 9.4 Magnesium 1.7 Troponin I 0.02 0.03
--- NOTE | 2025-03-26 18:22 | PC.NURSE ---
Pt is doing well today. VSS. Pt denies pain, denies chest heaviness, denies lightheadedness and dizziness. Pt had an episode of SOB this morning, likely anxiety, this was resolved with PO ativan. Pt has denied SOB since. Pt is ambulating in the halls independently and tolerating well. Pt's is at bedside.
[2025-03-26] MEDS: ATORVASTATIN CALCIUM 40 MG TABLET PO (21:34)
[2025-03-26] MEDS: ENOXAPARIN 40 MG/0.4 ML INJ SUBCUT (21:35)
[2025-03-26] MEDS: MELATONIN 3 MG TABLET PO (21:50)
[2025-03-27] VITALS (12 sets, daily range): BP systolic 81–118; BP diastolic 53–76; PULSE 90–117; RESP 16–20; TEMP 36.4–37; O2SAT 91–98
[2025-03-27 06:43] LABS: Hematocrit 40.0 % (37.0-53.0); Hemoglobin* 12.8 gm/dL (13.5-17.5); Immature Granulocytes Abs Auto 0.00 K/uL (0.00-0.30); Immature Granulocytes Pct Auto 0.0 %; Mean Corpuscular HGB Conc 32 gm/dL (32-36); Mean Corpuscular Hemoglobin 27 pg (26-34); Mean Corpuscular Volume 86 fL (80-100); RDW Coefficient of Variation % 13.0 % (11.5-15.5); Red Blood Count 4.67 m/uL (4.30-5.90); White Blood Count* 4.26 K/uL (4.50-11.00)
[2025-03-27 06:53] LABS: Chloride* 102 mmol/L (96-114); Potassium* 3.8 mmol/L (3.6-5.1); Sodium* 137 mmol/L (135-149)
[2025-03-27 06:56] LABS: Anion Gap 8 mEq/L (7-15); Blood Urea Nitrogen* 29 mg/dL (7-30); Calcium* 9.3 mg/dL (8.4-10.6); Carbon Dioxide* 27 mmol/L (20-32); Creatinine* 1.1 mg/dL (0.5-1.5); Est. Creatinine Clearance* 74.73; Estimated Glomerular Filt Rate 73 ml/min; Glucose* 113 mg/dL (60-115)
[2025-03-27 07:29] LABS: Lymphocytes Absolute Auto 1.10 K/uL (0.90-2.90); Slide Review Reflex No
--- NOTE | 2025-03-27 07:48 | PC.NURSE ---
Shift note ([id number]): Patient pleasant, alert and oriented.?Fine crackles in bases bilaterally. ?Given PRN Melatonin for sleep and PRN Hydroxyzine for Anxiety at HS. Patient reports he slept well. Reported feeling SOB this am at shift change. Pt reports he felt fine when walking to and from bathroom, however he felt SOB once he got back to bed.?VSS and O2 sats 96-100% at that time. Pt reported feeling better after being reassured of O2 sats and VS. Oncoming nurse updated.?
[2025-03-27] MEDS: DULOXETINE 30 MG CAPSULE DR 60 MG PO (08:50)
[2025-03-27] MEDS: GABAPENTIN 300 MG CAPSULE 1200 MG PO ×2 (08:51→20:49)
[2025-03-27] MEDS: METFORMIN ER 500 MG 1000 MG PO ×2 (08:52→17:47)
[2025-03-27] MEDS: MULTIVITAMIN/MINERALS 1 TABLET 1 TAB PO (08:52)
[2025-03-27] MEDS: EMPAGLIFLOZIN 10 MG TABLET PO (08:52)
[2025-03-27] MEDS: ASPIRIN 81 MG TABLET EC PO (08:52)
[2025-03-27] MEDS: TICAGRELOR 90 MG TABLET PO ×2 (08:52→20:49)
[2025-03-27] MEDS: SPIRONOLACTONE 25 MG TABLET PO (08:52)
[2025-03-27] MEDS: ISOSORBIDE MONONITRATE ER 30 MG TAB PO (08:53)
[2025-03-27] MEDS: SODIUM CHLORIDE 0.9 % (FLUSH) 10 ML SYRINGE 5 ML IVF ×2 (08:53→20:50)
[2025-03-27] MEDS: INSULIN ASPART 100 UNIT/ML SUBCUT ×3 (10:09→17:41)
[2025-03-27] MEDS: ACETAMINOPHEN 500 MG TABLET PO (12:30)
--- NOTE | 2025-03-27 13:18 | CRLHL7_ITS ---
For Patients: As a result of the Century Cures Act, medical imaging exams and procedure reports are released immediately into your electronic medical record. You may view this report before your referring provider. If you have questions, please contact your health care provider. INDICATION: Increasing shortness of breath TECHNIQUE: Chest radiograph 3 views COMPARISON: 03/25/2025 FINDINGS: The sensitivity and specificity of the exam are moderately limited by the patient`s body habitus. Mediastinum: Severe coronary artery calcifications and coronary stents are noted. The cardiac silhouette is at upper limits of normal in size. A leadless cardiac pacer is seen over the right ventricle. Lung: Both lungs are unremarkable in appearance. Small bilateral pleural effusions are present. No pneumothorax is identified. Bone and Soft tissue: Remote, healed bilateral rib fractures are noted. ACDF is present without interval change. IMPRESSIONS: 1. Severe coronary artery calcifications and coronary stents are noted. 2. Small bilateral pleural effusions are present. Dictated by Jcarlos Davison MD @ 03/27/2025 2:53:53 PM Dictated by: Jcarlos Davison MD @ 03/27/2025 14:54:05 (Electronically Signed)
[2025-03-27] MEDS: FUROSEMIDE 40 MG TABLET PO (13:50)
--- NOTE | 2025-03-27 15:06 | PC.NURSE ---
Pt is doing well. VSS. Afebrile. Tolerating ambulation independently. Pt had one episode of SOB this afternoon, provider aware, see MD orders. Pt's SOB has since resolved. Denies dizziness with activity. Adequate urine output. Tolerating a regular diet well.
--- NOTE | 2025-03-27 17:22 | P.IMPN_ITS ---
Assessment and Plan Assessment and plan (1) Acute on chronic HFrEF (heart failure with reduced ejection fraction): Problem comment: -last echo 03/18/25; EF 25-30% -diuressed on admission with 40mg IV lasix, with hypotension this was then managed with po spironolactone. down 4lbs at first, stable weight overnight to 03/27. I did give oral lasix today; some mild hypotension is noted. -GDMT: beta abdoul and Entresto on hold due to hypotension. ongoing jardiance, aldactone -ICD planned for the coming weeks Status: Acute (2) Hypotension: Problem comment: -currently on Jardiance (10mg), spironolactone 25mg daily, isosorbide mononitrate is down to 30mg, no beta blockage currently. entresto on hold, metoprolol was at 12.5 bid and that is on hold (2/2 hypotension). Continue to advance heart failure medicines and anti anginal medicines to the extent that his blood pressure and symptoms will allow. Focus more on orthostatic symptoms. Status: Acute (3) Unstable angina: Problem comment: - no new chest pain episodes in the last 24 hours. - continue p.r.n. nitro. - Continue isosorbide at 30 mg daily. - metoprolol 25 mg b.i.d. due to his resting tachycardia (but then held due to hypotension) Status: Acute (4) LAINE (generalized anxiety disorder): Problem comment: -ativan seems more effective than hydroxyzine -consider SSRI and/or buspar Status: Acute (5) Syncope: Problem comment: He is having spells of altered consciousness. There has been concern that these are due to orthostatic hypotension caused by his heart medicines. His indicates that she thinks these are more related to anxiety or panic attack. Continue to evaluate and monitor. Status: Acute (6) Spell of altered consciousness: Problem comment: Continue to evaluate and manage as we titrate his heart medications. Status: Acute (7) Chest pain: Problem comment: Ongoing episodes of chest pain with normal troponins. Possible angina versus anxiety Status: Acute (8) Diabetic neuropathy, type II diabetes mellitus: Problem comment: Continue to monitor. Patient will manage mealtime insulin dosing Status: Acute (9) Peripheral vascular disease: Problem comment: Likely has fairly severe peripheral artery disease based on exam today. Does not appear to be critical ischemia. Arterial Doppler shows monophasic flow in the left foot and biphasic in the right Status: Acute (10) Coronary artery disease: Problem comment: Coronary stents placed in 2008. 2022 had stenting again with a ejection fraction of 36%. November 2023 he had in stent stenosis with repeat stenting. Ejection fraction of 45-50% July 2024 he had a non STEMI. He had coronary stenting of LAD x2 and the 1st diagonal. Ejection fraction of 20%. 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 November 2024 hospitalized for syncope. Has had longstanding episodes of spells over the last 5 years. Spells include shouting and limb shaking with eyes open but not responsive. Occasionally has syncope as well. This has limited his heart failure treatment due to concern about orthostasis and syncope. He had a loop recorder which showed no significant cardiac dysrhythmia. February 16, 2025 hospitalized with non STEMI. Had complex stenting in the LAD. 02/27/2025 hospitalized with heart failure and elevated troponins. Diuresis was limited due to hypotension. 03/12/2025 hospitalized with syncope thought secondary to orthostatic hypotension from heart failure medications. Subsequently Entresto and Jardiance have been held. Lasix was made p.r.n.. Not using daily. Took 1 dose of 20 mg yesterday for increase in weight of 3 lb and increased dyspnea Status: Acute (11) Obstructive sleep apnea: Problem comment: Noted in chart but patient is unaware of diagnosis and not on treatment Status: Acute (12) Stage 3 chronic kidney disease: Problem comment: Stable Status: Acute Subjective Date Seen: 03/27/25 Interval history: Daily Progress Note - Hospital Medicine Day #: 3 CC: Advanced heart failure (HFrEF), severe anxiety, difficulty tolerating medications 24 HOUR UPDATE: smooth night. no anxiety, slept better than usual. no orthopnea/FERNANDES. down 4lbs. appetite improved. Not orthostatic this morning, however did panic with standing and thought he was going out but we reassured him; his blood pressure was stable and that he was doing well. I reviewed summary of Dr. Hines's care. Dale Luna is a 69 year old male with advanced heart failure with reduced ejection fraction and severe coronary artery disease admitted to the hospital with progressive dyspnea and chest pain. This morning paced and had an episode of severe in ?shock or stabbing left chest pain. He took a nitroglycerin. This pain improved quickly though even when the paramedics arrived he was still having some chest discomfort. He received additional nitroglycerin and fentanyl. He has known coronary disease. Coronary stents placed in 2008. 2022 had stenting again with a ejection fraction of 36%. November 2023 he had in stent stenosis with repeat stenting. Ejection fraction of 45-50% July 2024 he had a non STEMI. He had coronary stenting of LAD x2 and the 1st diagonal. Ejection fraction of 20%. 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 November 2024 hospitalized for syncope. Has had longstanding episodes of spells over the last 5 years. Spells include shouting and limb shaking with eyes open but not responsive. Occasionally has syncope as well. This has limited his heart failure treatment due to concern about orthostasis and syncope. He had a loop recorder which showed no significant cardiac dysrhythmia. February 16, 2025 hospitalized with non STEMI. Had complex stenting in the LAD. 02/27/2025 hospitalized with heart failure and elevated troponins. Diuresis was limited due to hypotension. 03/12/2025 hospitalized with syncope thought secondary to orthostatic hypotension from heart failure medications. Subsequently Entresto and Jardiance have been held. Lashans was made p.r.n.. Echocardiogram from 03/18/2025: Final Impressions: Limited Echocardiogram performed 1. Moderate to severely increased LV size, severely reduced global systolic function with an estimated EF of 25 - 30%. 2. Multiple segmental abnormalities exist. See findings. 3. Right ventricular cavity size is normal, global systolic RV function is borderline. 4. The aortic valve is sclerotic, and trivial regurgitation. 5. The mitral valve is sclerotic, mild mitral regurgitation. 6. Echo contrast was administered to enhance visualization of all left ventricular segments. 7. No pericardial effusion. He is pending placement of a defibrillator for his advanced heart failure. He has an implanted heart monitor which has not shown any significant dysrhythmias even with his episodes of spells/syncope. Cross cover note from evening of March 25: I got a call from Mr. Luna's nurse around 7 : 20 p.m., patient was complaining of chest pain, retrosternal localized described as heaviness. vital signs were stable during the whole episode, with his systolic blood pressure being above 100 mm hg and his heart rate did not increase above 105-110 beats per minute. Cardiac telemetry was reviewed and it did not show any arrhythmias. Patient was given sublingual nitro and rainbow labs were ordered including cardiac enzymes, EKG and a chest x-ray. During this episode patient had a syncopal event and he was unresponsive for about 20 - 30 seconds, but then he regained consciousness after he was put into Trendelenburg position. patient improved 10 minutes later and he was able to answer my questions. When I asked him about history of seizures and if he ever had and EEG done, he said that he had an EEG at [place] in a did not show an epileptic activity. Patient has a loop recorder which also did not show arrhythmia in the past. when I asked him if he took his beta-abdoul today he states that he did not take it. N.B: patient is on DAPT for recent cardiac stenting. 03/26/2025: I met with the patient and his to review his current status. His reports that he is having ongoing episodes of symptoms including lightheadedness and dizziness when he is up and about, spells of altered consciousness which she believes are panic attacks, chest pain and dyspnea. She reports he commonly has spells where he will become unresponsive but typically has his eyes open and may be having vocalizations but not otherwise responding to the people around him. These are brief and self-limited. Apparently cardiology evaluation has not shown any cardiac dysrhythmias when these occur. Apparently evaluation suggested these are not seizures. He commonly has chest pain at home as well. He often feels dizzy/lightheaded at home. He has had relatively low blood pressure but his blood pressure has not been routinely checked when he is having symptoms. He had acute chest pain and dyspnea that was relieved with lorazepam today. We discussed his ongoing symptoms of dizziness, chest pain, dyspnea and spells. The optimal treatment for his heart disease will lower his blood pressure and may be the cause of some of his symptoms though some of his dizziness, dyspnea, spells and chest pain may also be related to his anxiety. I recommend that we continue to optimize his anti anginal and heart failure medications with close monitoring of symptoms and blood pressure. Notable Labs, Micro, Rads, Interventions: Afebrile Blood pressures have been running 92-118 systolic over 70s diastolic. Pulse in the high 90s. Respiratory rate 18 Pulse ox 98% room air Weight 103 kilos Labs have been reviewed since admission: CBCs stable. No elevated white blood cell count. Globin stable. Chemistries are normal today, normal electrolytes, normal renal function, actually improved. Glucose 113. Chest x-ray this morning shows his known coronary artery stents and calcifications. Both of his lungs are unremarkable in appearance there are small bilateral pleural effusions. Objective: looks comfortable. knows history and is insightful. relaxed. Vitals: see above Lungs: Clear. Cardiac: S1S2. minimal to no edema Disposition/Potential discharge - Likely in the morning Today I spent 50minutes seeing the patient, reviewing Expanse and EPIC no mayda/diagnostics, discussing the care plan with our care time that includes social work, PT/OT, pharmacy, RT, residential and documenting my impressions and plan in the medical record. Exam Const: Vital Signs, click to edit/add: Vital Signs - 24 hr 03/26/25 17:48 03/26/25 20:11 03/26/25 22:09 Temperature 97.5 F L 98.2 F Pulse Rate Pulse Rate [Pulse Oximeter] 97 Pulse Rate [Right Radial] 93 Pulse Rate [orthos tatic lying] 99 Pulse Rate [orthos tatic sitting] 102 H Pulse Rate [orthos tatic standing] 109 H Respiratory Rate 17 16 Blood Pressure [Ri ght Arm] 111/74 107/68 Blood Pressure [or thostatic lying] 110/64 Blood Pressure [or thostatic sitting] 102/64 Blood Pressure [or thostatic standing ] 91/60 Pulse Oximetry 98 96 Oxygen Delivery Me thod Room Air Room Air 03/26/25 22:11 03/26/25 23:00 03/27/25 03:25 Temperature 98.0 F Pulse Rate 95 Pulse Rate [Pulse Oximeter] 90 Pulse Rate [Right Radial] Pulse Rate [orthos tatic lying] Pulse Rate [orthos tatic sitting] Pulse Rate [orthos tatic standing] Respiratory Rate 20 Blood Pressure [Ri ght Arm] 115/69 Blood Pressure [or thostatic lying] Blood Pressure [or thostatic sitting] Blood Pressure [or thostatic standing ] Pulse Oximetry 96 91 Oxygen Delivery Me thod Room Air Room Air 03/27/25 06:59 03/27/25 07:00 03/27/25 07:43 Temperature 97.7 F Pulse Rate 92 Pulse Rate [Pulse Oximeter] 97 Pulse Rate [Right Radial] Pulse Rate [orthos tatic lying] Pulse Rate [orthos tatic sitting] Pulse Rate [orthos tatic standing] Respiratory Rate 17 16 Blood Pressure [Ri ght Arm] 110/73 Blood Pressure [or thostatic lying] Blood Pressure [or thostatic sitting] Blood Pressure [or thostatic standing ] Pulse Oximetry 96 97 Oxygen Delivery Me thod Room Air Room Air 03/27/25 08:09 03/27/25 11:00 03/27/25 15:00 Temperature 98.6 F 97.9 F 97.6 F Pulse Rate Pulse Rate [Pulse Oximeter] 96 98 102 H Pulse Rate [Right Radial] 102 H Pulse Rate [orthos tatic lying] Pulse Rate [orthos tatic sitting] Pulse Rate [orthos tatic standing] Respiratory Rate 16 16 18 Blood Pressure [Ri ght Arm] 118/76 111/70 92/62 Blood Pressure [or thostatic lying] Blood Pressure [or thostatic sitting] Blood Pressure [or thostatic standing ] Pulse Oximetry 97 98 98 Oxygen Delivery Tn thod Room Air Room Air Room Air 03/27/25 15:00 03/27/25 15:00 03/27/25 15:00 Temperature Pulse Rate 100 Pulse Rate [Pulse Oximeter] 100 Pulse Rate [Right Radial] Pulse Rate [orthos tatic lying] Pulse Rate [orthos tatic sitting] Pulse Rate [orthos tatic standing] Respiratory Rate 18 18 Blood Pressure [Ri ght Arm] Blood Pressure [or thostatic lying] Blood Pressure [or thostatic sitting] Blood Pressure [or thostatic standing ] Pulse Oximetry 98 Oxygen Delivery Tn thod Room Air Labs Labs: Laboratory Results - last 24 hr 03/27/25 06:07 WBC 4.26 L RBC 4.67 Hgb 12.8 L Hct 40.0 MCV 86 MCH 27 MCHC 32 RDW Coeff of Lou 13.0 Plt Count 147 Neut % (Auto) 62.4 Lymph % (Auto) 26.1 [place] % (Auto) 7.3 Eos % (Auto) 4.0 Baso % (Auto) 0.2 Neut # (Auto) 2.70 Lymph # (Auto) 1.10 [place] # (Auto) 0.30 Eos # (Auto) 0.20 Baso # (Auto) 0.00 Abs Immat Gran (auto) 0.00 Imm/Tot Granulo (auto) 0.0 Sodium 137 Potassium 3.8 Chloride 102 Carbon Dioxide 27 Anion Gap 8 BUN 29 Creatinine 1.1 Estimated Creat Clear 74.73 Estimated GFR 73 Glucose 113 Calcium 9.3
[2025-03-27] MEDS: ENOXAPARIN 40 MG/0.4 ML INJ SUBCUT (20:48)
[2025-03-27] MEDS: ATORVASTATIN CALCIUM 40 MG TABLET PO (20:49)
[2025-03-27] MEDS: MELATONIN 3 MG TABLET PO (20:49)
[2025-03-28] VITALS (16 sets, daily range): BP systolic 76–115; BP diastolic 54–79; PULSE 83–104; RESP 16–18; TEMP 36.5–36.8; O2SAT 96–99
--- NOTE | 2025-03-28 04:22 | PC.NURSE ---
Pt rested well this evening. Up walking [place] IND with his walker. VS unremarkable. Reporting zero pain. Tele showing 1st deg HB. Pleasant and cooperative.
--- NOTE | 2025-03-28 04:45 | PC.NURSE ---
@ 0440 Pt appeared to have a panic attack with respirations in the 40s. Pt Sats were 98% on RA. BP 99/59. HR was 90bpm. Pt calmed with repositioning. Respirations cam down to below 20 and Pt was able to fall back asleep.
[2025-03-28 06:14] LABS: Hematocrit 37.9 % (37.0-53.0); Hemoglobin* 12.1 gm/dL (13.5-17.5); Immature Granulocytes Abs Auto 0.00 K/uL (0.00-0.30); Immature Granulocytes Pct Auto 0.0 %; Lymphocytes Absolute Auto 1.32 K/uL (0.90-2.90); Mean Corpuscular HGB Conc 32 gm/dL (32-36); Mean Corpuscular Hemoglobin 27 pg (26-34); Mean Corpuscular Volume 85 fL (80-100); RDW Coefficient of Variation % 13.0 % (11.5-15.5); Red Blood Count 4.44 m/uL (4.30-5.90); White Blood Count* 4.67 K/uL (4.50-11.00)
[2025-03-28 06:22] LABS: Slide Review Reflex No
[2025-03-28 06:29] LABS: Chloride* 103 mmol/L (96-114); Sodium* 138 mmol/L (135-149)
[2025-03-28 06:30] LABS: Potassium* 3.8 mmol/L (3.6-5.1)
[2025-03-28 06:32] LABS: Blood Urea Nitrogen* 33 mg/dL (7-30); Creatinine* 1.2 mg/dL (0.5-1.5); Est. Creatinine Clearance* 68.50; Estimated Glomerular Filt Rate 66 ml/min
[2025-03-28 06:33] LABS: Anion Gap 8 mEq/L (7-15); Calcium* 9.3 mg/dL (8.4-10.6); Carbon Dioxide* 27 mmol/L (20-32); Glucose* 88 mg/dL (60-115)
[2025-03-28] MEDS: GABAPENTIN 300 MG CAPSULE 1200 MG PO ×2 (08:33→21:23)
[2025-03-28] MEDS: EMPAGLIFLOZIN 10 MG TABLET PO (08:33)
[2025-03-28] MEDS: MULTIVITAMIN/MINERALS 1 TABLET 1 TAB PO (08:33)
[2025-03-28] MEDS: TICAGRELOR 90 MG TABLET PO ×2 (08:33→21:20)
[2025-03-28] MEDS: DULOXETINE 30 MG CAPSULE DR 60 MG PO (08:33)
[2025-03-28] MEDS: METFORMIN ER 500 MG 1000 MG PO ×2 (08:33→17:18)
[2025-03-28] MEDS: ISOSORBIDE MONONITRATE ER 30 MG TAB PO (08:34)
[2025-03-28] MEDS: FUROSEMIDE 40 MG TABLET PO (08:34)
[2025-03-28] MEDS: SODIUM CHLORIDE 0.9 % (FLUSH) 10 ML SYRINGE 5 ML IVF ×2 (08:34→21:23)
[2025-03-28] MEDS: SPIRONOLACTONE 25 MG TABLET PO (08:34)
[2025-03-28] MEDS: ASPIRIN 81 MG TABLET EC PO (08:34)
[2025-03-28] MEDS: METOPROLOL TARTRATE 25 MG TABLET 12.5 MG PO ×2 (09:01→21:21)
[2025-03-28] MEDS: INSULIN ASPART 100 UNIT/ML SUBCUT ×2 (12:17→17:15)
--- NOTE | 2025-03-28 14:33 | PC.NURSE ---
Pt is doing well today. VSS. Denies pain. Denies SOB. Ambulating in garcia frequently. Blood glucose controlled. Pt had a panic attack at 1345; provider aware, pt became hypotensive and SOB. Episode lasted approximately 5 minutes and recovered well. BP returned to normal. Pt is currently resting well at this time.
--- NOTE | 2025-03-28 17:22 | P.IMPN_ITS ---
Assessment and Plan Assessment and plan (1) Acute on chronic HFrEF (heart failure with reduced ejection fraction): Problem comment: -last echo 03/18/25; EF 25-30% -diuressed on admission with 40mg IV lasix, with hypotension this was then managed with po spironolactone. down 4lbs at first, stable weight overnight to 03/27. I did give oral lasix today; some mild hypotension is noted. -GDMT: beta abdoul restarted today and Entresto on hold due to hypotension. ongoing jardiance, aldactone -ICD planned for the coming weeks Status: Acute (2) Hypotension: Problem comment: -currently on Jardiance (10mg), spironolactone 25mg daily, isosorbide mononitrate is down to 30mg, metoprolol tartrate 12.5mg bid restarted 03/28/25. entresto on hold. Continue to advance heart failure medicines and anti anginal medicines to the extent that his blood pressure and symptoms will allow. Focus more on orthostatic symptoms. Status: Acute (3) LAINE (generalized anxiety disorder): Problem comment: -becoming more obvious he is having significant panic attacks -scheduled ativan and starting lexaprol 10mg daily. Status: Acute (4) Unstable angina: Problem comment: - no new chest pain episodes in the last 24 hours. - continue p.r.n. nitro. - Continue isosorbide at 30 mg daily. Status: Acute (5) Syncope: Problem comment: He is having spells of altered consciousness. There has been concern that these are due to orthostatic hypotension caused by his heart medicines. His indicates that she thinks these are more related to anxiety or panic attack. Continue to evaluate and monitor. -concur with . starting scheduled ativan and daily lexapro. Status: Acute (6) Spell of altered consciousness: Problem comment: Continue to evaluate and manage as we titrate his heart medications. Status: Acute (7) Diabetic neuropathy, type II diabetes mellitus: Problem comment: Continue to monitor. Patient will manage mealtime insulin dosing Status: Acute (8) Peripheral vascular disease: Problem comment: Likely has fairly severe peripheral artery disease based on exam today. Does not appear to be critical ischemia. Arterial Doppler shows monophasic flow in the left foot and biphasic in the right Status: Acute (9) Coronary artery disease: Problem comment: Coronary stents placed in 2008. 2022 had stenting again with a ejection fraction of 36%. November 2023 he had in stent stenosis with repeat stenting. Ejection fraction of 45-50% July 2024 he had a non STEMI. He had coronary stenting of LAD x2 and the 1st diagonal. Ejection fraction of 20%. 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 November 2024 hospitalized for syncope. Has had longstanding episodes of spells over the last 5 years. Spells include shouting and limb shaking with eyes open but not responsive. Occasionally has syncope as well. This has limited his heart failure treatment due to concern about orthostasis and syncope. He had a loop recorder which showed no significant cardiac dysrhythmia. February 16, 2025 hospitalized with non STEMI. Had complex stenting in the LAD. 02/27/2025 hospitalized with heart failure and elevated troponins. Diuresis was limited due to hypotension. 03/12/2025 hospitalized with syncope thought secondary to orthostatic hypotension from heart failure medications. Subsequently Entresto and Jardiance have been held. Lasix was made p.r.n.. Not using daily. Took 1 dose of 20 mg yesterday for increase in weight of 3 lb and increased dyspnea Status: Acute (10) Obstructive sleep apnea: Problem comment: Noted in chart but patient is unaware of diagnosis and not on treatment Status: Acute (11) Stage 3 chronic kidney disease: Problem comment: Stable Status: Acute Subjective Date Seen: 03/28/25 Interval history: Daily Progress Note - Hospital Medicine Day #: 4 CC: Advanced heart failure (HFrEF), severe anxiety, difficulty tolerating medications 2/2 hypotension 24 HOUR UPDATE: slept well again; up walking with his spouse. about 3pm he felt acutely breathless; panicky feeling. He went out but jerked awake when I pulled his arm up over his face. His saturations were 100% and while low baseline SPB is his norm; his map was normal. EKG baseline. We discussed why panic attacks happen and why he is not in control of this and it isn't purposeful or attention seeking. we discussed scheduling ativan and starting lexapro. he is now on 3 of the 4 GDMT for his HFrEF. Jardiance, spironolactone metoprolol. Entresto is on hold. We also have his home Lasix restarted. Notable Labs, Micro, Rads, Interventions: Afebrile Blood pressures have been running 86-118 systolic over 70s diastolic. Pulse in the high 90s. Respiratory rate 18 Pulse ox 98% room air Weight 103 kilos Labs have been reviewed since admission: CBCs stable. No elevated white blood cell count. Hemoglobin stable Chemistries are normal today, normal electrolytes, normal renal function, actually improved. Glucose 113. Chest x-ray reviewed from yesterday. Objective: looks comfortable. knows history and is insightful. relaxed. Vitals: see above Lungs: Clear. Cardiac: S1S2. minimal to no edema Disposition/Potential discharge - Likely in the morning Today I spent 50minutes seeing the patient, reviewing Expanse and EPIC notes/diagnostics, discussing the care plan with our care time that includes social work, PT/OT, pharmacy, RT, ch[facility] and documenting my impressions and plan in the medical record. Exam Const: Vital Signs, click to edit/add: Vital Signs - 24 hr 03/27/25 18:53 03/27/25 21:23 03/27/25 22:01 Temperature 98.0 F Pulse Rate 104 H Pulse Rate [Pulse Oximeter] 100 100 Pulse Rate [Right Radial] 100 100 Pulse Rate [orthos tatic lying] Pulse Rate [orthos tatic sitting] Pulse Rate [orthos tatic standing] Respiratory Rate 18 18 Blood Pressure [Ri ght Arm] 107/75 Blood Pressure [or thostatic lying] Blood Pressure [or thostatic sitting] Blood Pressure [or thostatic standing ] Pulse Oximetry 98 Oxygen Delivery Me thod Room Air 03/27/25 22:01 03/27/25 22:02 03/28/25 02:26 Temperature 98.1 F 98.1 F Pulse Rate Pulse Rate [Pulse Oximeter] 99 91 Pulse Rate [Right Radial] Pulse Rate [orthos tatic lying] Pulse Rate [orthos tatic sitting] Pulse Rate [orthos tatic standing] Respiratory Rate 16 16 Blood Pressure [Ri ght Arm] 106/71 112/79 Blood Pressure [or thostatic lying] Blood Pressure [or thostatic sitting] Blood Pressure [or thostatic standing ] Pulse Oximetry 95 95 98 Oxygen Delivery Me thod Room Air Room Air Room Air 03/28/25 07:00 03/28/25 07:00 03/28/25 08:24 Temperature 97.7 F Pulse Rate 96 Pulse Rate [Pulse Oximeter] 96 Pulse Rate [Right Radial] Pulse Rate [orthos tatic lying] Pulse Rate [orthos tatic sitting] Pulse Rate [orthos tatic standing] Respiratory Rate 16 Blood Pressure [Ri ght Arm] 115/76 Blood Pressure [or thostatic lying] Blood Pressure [or thostatic sitting] Blood Pressure [or thostatic standing ] Pulse Oximetry 96 96 Oxygen Delivery Ca thod Room Air Room Air 03/28/25 11:00 03/28/25 13:45 03/28/25 13:46 Temperature 98.3 F Pulse Rate Pulse Rate [Pulse Oximeter] 83 102 H 95 Pulse Rate [Right Radial] Pulse Rate [orthos tatic lying] Pulse Rate [orthos tatic sitting] Pulse Rate [orthos tatic standing] Respiratory Rate 16 Blood Pressure [Ri ght Arm] 104/73 86/75 L 99/75 Blood Pressure [or thostatic lying] Blood Pressure [or thostatic sitting] Blood Pressure [or thostatic standing ] Pulse Oximetry 97 Oxygen Delivery Ca thod Room Air 03/28/25 13:49 03/28/25 13:50 03/28/25 13:55 Temperature Pulse Rate Pulse Rate [Pulse Oximeter] 94 95 88 Pulse Rate [Right Radial] Pulse Rate [orthos tatic lying] Pulse Rate [orthos tatic sitting] Pulse Rate [orthos tatic standing] Respiratory Rate Blood Pressure [Ri ght Arm] 93/62 94/64 102/69 Blood Pressure [or thostatic lying] Blood Pressure [or thostatic sitting] Blood Pressure [or thostatic standing ] Pulse Oximetry Oxygen Delivery Ca thod 03/28/25 16:17 Temperature Pulse Rate Pulse Rate [Pulse Oximeter] Pulse Rate [Right Radial] Pulse Rate [orthos tatic lying] 92 Pulse Rate [orthos tatic sitting] 94 Pulse Rate [orthos tatic standing] 104 H Respiratory Rate Blood Pressure [Ri ght Arm] Blood Pressure [or thostatic lying] 103/65 Blood Pressure [or thostatic sitting] 76/56 L Blood Pressure [or thostatic standing ] 89/54 L Pulse Oximetry Oxygen Delivery Ca thod Labs Labs: Laboratory Results - last 24 hr 03/28/25 05:57 WBC 4.67 RBC 4.44 Hgb 12.1 L Hct 37.9 MCV 85 MCH 27 MCHC 32 RDW Coeff of Lou 13.0 Plt Count 137 L Neut % (Auto) 58.0 Lymph % (Auto) 28.3 [place] % (Auto) 9.0 Eos % (Auto) 4.1 Baso % (Auto) 0.6 Neut # (Auto) 2.71 Lymph # (Auto) 1.32 [place] # (Auto) 0.40 Eos # (Auto) 0.19 Baso # (Auto) 0.03 Abs Immat Gran (auto) 0.00 Imm/Tot Granulo (auto) 0.0 Sodium 138 Potassium 3.8 Chloride 103 Carbon Dioxide 27 Anion Gap 8 BUN 33 H Creatinine 1.2 Estimated Creat Clear 68.50 Estimated GFR 66 Glucose 88 Calcium 9.3
[2025-03-28] MEDS: ATORVASTATIN CALCIUM 40 MG TABLET PO (21:21)
[2025-03-28] MEDS: ENOXAPARIN 40 MG/0.4 ML INJ SUBCUT (21:24)
[2025-03-28] MEDS: MELATONIN 3 MG TABLET PO (21:31)
[2025-03-28] MEDS: ACETAMINOPHEN 500 MG TABLET PO (21:31)
[2025-03-29 02:52] VITALS: BP 104/65; PULSE 82; RESP 16; TEMP 36.8; O2SAT 99
--- NOTE | 2025-03-29 04:26 | PC.NURSE ---
Pt rested well this night. Up IND. Reporting zero pain. No episodes of anxiety to this point. VS unremarkable. Tele showing 1st deg HB. Pt was up walking halls and is very pleasant and cooperative.
[2025-03-29 05:10] VITALS: TEMP 36.8
[2025-03-29] MEDS: ACETAMINOPHEN 500 MG TABLET PO (05:10)
[2025-03-29 06:25] LABS: Hematocrit 39.1 % (37.0-53.0); Hemoglobin* 12.3 gm/dL (13.5-17.5); Immature Granulocytes Abs Auto 0.00 K/uL (0.00-0.30); Immature Granulocytes Pct Auto 0.0 %; Lymphocytes Absolute Auto 1.77 K/uL (0.90-2.90); Mean Corpuscular HGB Conc 32 gm/dL (32-36); Mean Corpuscular Hemoglobin 27 pg (26-34); Mean Corpuscular Volume 86 fL (80-100); RDW Coefficient of Variation % 13.0 % (11.5-15.5); Red Blood Count 4.57 m/uL (4.30-5.90); White Blood Count* 5.57 K/uL (4.50-11.00)
[2025-03-29 06:35] LABS: Slide Review Reflex No
[2025-03-29 06:44] LABS: Chloride* 102 mmol/L (96-114); Potassium* 3.9 mmol/L (3.6-5.1); Sodium* 138 mmol/L (135-149)
[2025-03-29 06:47] LABS: Anion Gap 8 mEq/L (7-15); Blood Urea Nitrogen* 37 mg/dL (7-30); Carbon Dioxide* 28 mmol/L (20-32); Creatinine* 1.3 mg/dL (0.5-1.5); Est. Creatinine Clearance* 63.23; Estimated Glomerular Filt Rate 60 ml/min
[2025-03-29 07:00] VITALS: PULSE 89; RESP 18; O2SAT 99
[2025-03-29 07:03] LABS: Calcium* 9.2 mg/dL (8.4-10.6); Glucose* 89 mg/dL (60-115)
[2025-03-29 08:00] VITALS: PULSE 90; RESP 18
[2025-03-29 08:10] VITALS: BP 112/73; PULSE 90; RESP 18; TEMP 36.5; O2SAT 99
[2025-03-29] MEDS: MULTIVITAMIN/MINERALS 1 TABLET 1 TAB PO (08:20)
[2025-03-29] MEDS: ISOSORBIDE MONONITRATE ER 30 MG TAB PO (08:20)
[2025-03-29] MEDS: DULOXETINE 30 MG CAPSULE DR 60 MG PO (08:20)
[2025-03-29] MEDS: METOPROLOL TARTRATE 25 MG TABLET 12.5 MG PO (08:21)
[2025-03-29] MEDS: ESCITALOPRAM 10 MG TABLET PO (08:21)
[2025-03-29] MEDS: EMPAGLIFLOZIN 10 MG TABLET PO (08:21)
[2025-03-29] MEDS: METFORMIN ER 500 MG 1000 MG PO (08:22)
[2025-03-29] MEDS: ASPIRIN 81 MG TABLET EC PO (08:22)
[2025-03-29] MEDS: FUROSEMIDE 40 MG TABLET PO (08:22)
[2025-03-29] MEDS: SPIRONOLACTONE 25 MG TABLET PO (08:22)
[2025-03-29] MEDS: GABAPENTIN 300 MG CAPSULE 1200 MG PO (08:23)
[2025-03-29] MEDS: SODIUM CHLORIDE 0.9 % (FLUSH) 10 ML SYRINGE 5 ML IVF (08:23)
[2025-03-29] MEDS: TICAGRELOR 90 MG TABLET PO (08:46)
[2025-03-29 11:35] VITALS: BP 104/64; PULSE 84; RESP 18; O2SAT 96
[2025-03-29] MEDS: INSULIN ASPART 100 UNIT/ML SUBCUT (14:03)
--- NOTE | 2025-03-29 15:25 | P.DS_ITS ---
DS: Providers Provider Date Seen: 03/29/25 Date of admission: 03/25/25 12:26 Primary care physician: Lakesha Khan MD Admitting Clinician: Eladio Hines MD Attending Physician on discharge: [facility]charge: 03/29/25 DS: Diagnosis Discharge Diagnosis (1) Acute on chronic HFrEF (heart failure with reduced ejection fraction): Status: Acute Problem details: -last echo 03/18/25; EF 25-30% -diuressed on admission with 40mg IV lasix, with hypotension this was then managed with po spironolactone. down 4lbs at first, stable weight overnight to 03/27. I did give oral lasix today; some mild hypotension is noted. -GDMT: beta shalom restarted today and Entresto on hold due to hypotension. ongoing jardiance, aldactone -ICD planned for the coming weeks (2) Hypotension: Status: Acute Problem details: -currently on Jardiance (10mg), spironolactone 25mg daily, isosorbide mononitrate is down to 30mg, metoprolol tartrate 12.5mg bid restarted 03/28/25. entresto on hold. Continue to advance heart failure medicines and anti anginal medicines to the extent that his blood pressure and symptoms will allow. Focus more on orthostatic symptoms. (3) Spell of altered consciousness: Status: Acute Problem details: Continue to evaluate and manage as we titrate his heart medications. -the spells were witnessed in the inpatient setting. These were classic panic attacks with dyspnea despite normal O2 sats, presyncopal feeling despite a map greater than 65 and mild agitation. At times he would go limp but would awaken with agitation and a sternal rub. -scheduled Ativan, Lexapro (4) LAINE (generalized anxiety disorder): Status: Acute Problem details: -becoming more obvious he is having significant panic attacks -scheduled ativan and starting lexaprol 10mg daily. (5) Stage 3 chronic kidney disease: Status: Acute Problem details: Stable (6) Coronary artery disease: Status: Acute Problem details: Coronary stents placed in 2008. 2022 had stenting again with a ejection fraction of 36%. November 2023 he had in stent stenosis with repeat stenting. Ejection fraction of 45-50% July 2024 he had a non STEMI. He had coronary stenting of LAD x2 and the 1st diagonal. Ejection fraction of 20%. 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 November 2024 hospitalized for syncope. Has had longstanding episodes of spells over the last 5 years. Spells include shouting and limb shaking with eyes open but not responsive. Occasionally has syncope as well. This has limited his heart failure treatment due to concern about orthostasis and syncope. He had a loop recorder which showed no significant cardiac dysrhythmia. February 16, 2025 hospitalized with non STEMI. Had complex stenting in the LAD. 02/27/2025 hospitalized with heart failure and elevated troponins. Diuresis was limited due to hypotension. 03/12/2025 hospitalized with syncope thought secondary to orthostatic hypotension from heart failure medications. Subsequently Entresto and Jardiance have been held. Lasix was made p.r.n.. Not using daily. Took 1 dose of 20 mg yesterday for increase in weight of 3 lb and increased dyspnea DS: Summary Hospital Course Hospital Course: QUESTIONS TO ASK AT FOLLOW-UP: 1. However E feeling? Being still having episodes of breathlessness, weakness and looking going to pass out? We have addressed these as panic attacks before and inpatient team advised scheduled Ativan at 0.5 mg p.o. b.i.d. we also started Lexapro at 10 mg p.o. q.day. I these meds appearing to be effective? 2. How is the blood pressure? There has been a delicate balance between GDMT for his known HFREF/chronic angina and symptomatic hypotension/orthostasis. The inpatient team focused on a MAP greater than 65 and Education. We titrated his metoprolol to 12.5 mg of tartrate b.i.d., spironolactone 50 mg, and Jardiance at 10 mg. We held the Entresto. We decreased his nitro isosorbide down to 30 mg daily. He has close follow-up with Cardiology. BRIEF HOSPITAL COURSE: Patient was admitted for 5 days. Synopsis of acute inpatient issues are outlined above. Chronic medical conditions with notable findings outlined above. Essentially he came in with mild acute on chronic congestive heart failure with reduced EF. He has a long history of ischemic cardiomyopathy and heart failure. He is awaiting and placement of an implantable defibrillator. Foot became obvious to the inpatient team was spells of chest pain and dyspnea more likely panic attacks. We focused on Education and coping. We explained what true hypotension for him would be. We focused on map greater than 65. We titrated back his GED and T medications. Intimately he was on scheduled Ativan and Lexapro for these interfering panic attacks. DISCHARGE MEDICATIONS: See Reconciled list - SIGNIFICANT CHANGES: Scheduled Ativan 0.5 mg b.i.d., Lexapro 10 mg daily Beta-blockers now metoprolol 12.5 mg of tartrate b.i.d. Spironolactone at 50 mg daily Jardiance 10 mg daily Entresto is on hold Specific instructions to the patient and follow-up are outlined below. REVIEW OF SYSTEMS No new chest pain or dyspnea Pain controlled No voiding difficulties Tolerating diet challenge PHYSICAL EXAM: CONSTITUTIONAL: Conversive, good historian. A/O. Knows setting and context. GENERAL: Well-developed and above ideal body weight, in no respiratory distress. VITAL SIGNS: see record. HEENT: Sclerae are anicteric. No petechiae. CARDIAC: rhythm is regular. There is no S3 or rub. No harsh murmurs. Extremities show trace edema with symmetrical pulses. PULM: good air entry with no wheeze. NEURO: Speech is fluent. A brief neurologic exam is negative. SKIN: No rashes, petechiae, concerning changes PSYCHIATRIC: Euthymic. DISPOSITION: Home with Time spent on discharge 37 minutes. Status at Discharge Functional status at discharge: uses cane/walker Overall status at discharge: patient is progressing back to baseline Time Spent with Patient Time attestation: Total time spent providing and/or coordinating discharge services: Time spent: Greater than 30 minutes Exam Const: Vital Signs, click to edit/add: Vital Signs - 24 hr 03/28/25 16:17 03/28/25 19:00 03/28/25 23:09 Temperature 98.2 F 98.2 F Pulse Rate Pulse Rate [Pulse Oximeter] 100 85 Pulse Rate [Right Radial] Pulse Rate [orthos tatic lying] 92 Pulse Rate [orthos tatic sitting] 94 Pulse Rate [orthos tatic standing] 104 H Respiratory Rate 18 16 Blood Pressure [Ri ght Arm] 114/75 89/54 L Blood Pressure [or thostatic lying] 103/65 Blood Pressure [or thostatic sitting] 76/56 L Blood Pressure [or thostatic standing ] 89/54 L Pulse Oximetry 97 99 Oxygen Delivery Me thod Room Air Room Air 03/28/25 23:11 03/28/25 23:12 03/28/25 23:35 Temperature Pulse Rate 88 Pulse Rate [Pulse Oximeter] 85 Pulse Rate [Right Radial] 100 Pulse Rate [orthos tatic lying] Pulse Rate [orthos tatic sitting] Pulse Rate [orthos tatic standing] Respiratory Rate 16 16 Blood Pressure [Ri ght Arm] Blood Pressure [or thostatic lying] Blood Pressure [or thostatic sitting] Blood Pressure [or thostatic standing ] Pulse Oximetry 99 Oxygen Delivery Mo thod Room Air 03/29/25 02:52 03/29/25 05:10 03/29/25 07:00 Temperature 98.3 F 98.3 F Pulse Rate Pulse Rate [Pulse Oximeter] 82 Pulse Rate [Right Radial] Pulse Rate [orthos tatic lying] Pulse Rate [orthos tatic sitting] Pulse Rate [orthos tatic standing] Respiratory Rate 16 18 Blood Pressure [Ri ght Arm] 104/65 Blood Pressure [or thostatic lying] Blood Pressure [or thostatic sitting] Blood Pressure [or thostatic standing ] Pulse Oximetry 99 99 Oxygen Delivery Mo thod Room Air Room Air 03/29/25 07:00 03/29/25 08:00 03/29/25 08:10 Temperature 97.7 F Pulse Rate 89 Pulse Rate [Pulse Oximeter] 90 90 Pulse Rate [Right Radial] Pulse Rate [orthos tatic lying] Pulse Rate [orthos tatic sitting] Pulse Rate [orthos tatic standing] Respiratory Rate 18 18 Blood Pressure [Ri ght Arm] 112/73 Blood Pressure [or thostatic lying] Blood Pressure [or thostatic sitting] Blood Pressure [or thostatic standing ] Pulse Oximetry 99 Oxygen Delivery Me thod Room Air 03/29/25 11:35 Temperature Pulse Rate Pulse Rate [Pulse Oximeter] 84 Pulse Rate [Right Radial] Pulse Rate [orthos tatic lying] Pulse Rate [orthos tatic sitting] Pulse Rate [orthos tatic standing] Respiratory Rate 18 Blood Pressure [Ri ght Arm] 104/64 Blood Pressure [or thostatic lying] Blood Pressure [or thostatic sitting] Blood Pressure [or thostatic standing ] Pulse Oximetry 96 Oxygen Delivery Me thod Room Air DS: Data Data Completed and Pending Labs on day of discharge: Labs from last 24 hours 03/29/25 06:15 WBC 5.57 RBC 4.57 Hgb 12.3 L Hct 39.1 MCV 86 MCH 27 MCHC 32 RDW Coeff of Lou 13.0 Plt Count 153 Neut % (Auto) 54.4 Lymph % (Auto) 31.8 Hawkins % (Auto) 10.2 Eos % (Auto) 3.4 Baso % (Auto) 0.2 Neut # (Auto) 3.03 Lymph # (Auto) 1.77 Hawkins # (Auto) 0.60 Eos # (Auto) 0.19 Baso # (Auto) 0.01 Abs Immat Gran (auto) 0.00 Imm/Tot Granulo (auto) 0.0 Sodium 138 Potassium 3.9 Chloride 102 Carbon Dioxide 28 Anion Gap 8 BUN 37 H Creatinine 1.3 Estimated Creat Clear 63.23 Estimated GFR 60 Glucose 89 Calcium 9.2 Discharge Plan Discharge Disposition: Home, Self-Care Date of Admission: 03/25/25 12:26 Primary Care Provider: Lakesha Khan I Condition: Improved Anticipated Discharge Date/Time: 03/29/25 12:24 Discharge Medications: New isosorbide mononitrate 30 mg Tablet Extended Release 24 Hr 30 mg PO DAILY Qty: 30 0RF melatonin 3 mg Tablet 6 mg PO HS PRNQty: 60 0RF Rx Instructions: OTC guidance is fine lorazepam 0.5 mg Tablet 0.5 mg PO BID Qty: 60 0RF spironolactone 25 mg Tablet 25 mg PO DAILY Qty: 30 0RF escitalopram oxalate 10 mg Tablet 10 mg PO DAILY Qty: 30 0RF metoprolol tartrate 25 mg Tablet 12.5 mg PO BID Qty: 60 0RF Continued furosemide [Lasix] 20 mg tablet 40 mg PO QAM atorvastatin 40 mg tablet 40 mg PO HS gabapentin 300 mg capsule 600 mg PO TID metformin 500 mg tablet extended release 24 hr 1,000 mg PO BIDWM insulin lispro 100 unit/mL insulin pen 6 - 10 unit subcut TIDWM insulin glargine [Lantus Solostar U-100 Insulin] 100 unit/mL (3 mL) insulin pen 20 unit subcut HS acetaminophen 500 mg tablet 500 mg PO TID PRN aspirin [Adult Low Dose Aspirin] 81 mg tablet,delayed release (DR/EC) 81 mg PO DAILY Jardiance 10 mg tablet 10 mg PO DAILY multivitamin [Daily Multi-Vitamin] Tablet 1 tab PO DAILY nitroglycerin 0.4 mg tablet, sublingual 0.4 mg sublingual Q5-15M PRN Rx Instructions: do not exceed 3 doses per episode duloxetine 60 mg capsule,delayed release(DR/EC) 60 mg PO DAILY oxycodone 10 mg tablet 10 mg PO BID ticagrelor [Brilinta] 90 mg tablet 90 mg PO BID Held sacubitril-valsartan [Entresto] 24-26 mg tablet 0.5 tab PO BID Hold Instructions: Resume on 04/19/25. until you discuss with your cardiology team Discontinued isosorbide mononitrate 60 mg tablet extended release 24 hr 30 mg PO DAILY metoprolol succinate 25 mg tablet extended release 24 hr 12.5 mg PO BID Discharge Orders: Discharge Order (Routine); Ordered 03/29/25 Ordered By: Josephine Saucedo Patient Education: Metoprolol (By mouth), Spironolactone (By mouth), Lorazepam (By mouth), Isosorbide Mononitrate (By mouth), Escitalopram (By mouth), Melatonin (By mouth), Generalized Anxiety Disorder (ED), Anxiolysis in Adults (ED) Additional Instructions: 1. Our emphasis is working on your meds for the heart and manage/treat your anxiety/panic attacks. To that end: I will have you take Ativan 0.5mg twice a day. If needed you can take an extra dose if needed. I've also started you on Lexapro which will help manage anxiety. 2. Your GDMT (this stands for goal-directed medical treatment) for the heart include four classes: 1. Jardiance (you are on this at the recommended dose) 2. Sprinolactone (you are on the recommended dose of this) 3.Beta Shalom (I've changed this from extended release to a smaller dose tw ice a day) 4. Entresto - this is held right now 3. Your isosorbide mononitrate is at 30mg (not 60mg) 4. Remember your blood pressure will run low because of your cardiac issues and the meds needed to treat them. Remember your top number (the systolic blood pressure) may be as low as 88-90mmHg. don't worry about the bottom number. We also guide you on the MAP (mean arterial blood pressure). That should be 65 or higher. Some blood pressure monitors will report this as a smaller number under the top and bottom number. Activity Level: Activity as Tolerated Discharge Diet: Diabetic Follow Up Appointments: [facility] [Provider Group] Referral Note: You can make the follow-up appointments and communicate as you have been doing. We did not make any specific appointments. Lakesha Khan MD [Primary Care Provider, Obstetrics] Forms: [facility], [facility] Info Instructions
--- NOTE | 2025-03-29 15:32 | PC.NURSE ---
Discharge: Patient pleasant and cooperative, A&O. VSS, afebrile. SpO2 maintained above 90% on RA. Discharge instructions provided, all questions answered. D/C to home
[2025-04-08 07:42] LABS: Troponin, Point-of-Care* 0.03 ng/ml (0.01-0.04)
== END 2025-03-29 15:15 | disposition home or self-care (01) | DRG 291 ==
LOC: ED 09:26 → MEDSURG 11:02
PROVIDERS: Student in an Organized Health Care Education/Training Program; Admitting Provider Family Medicine; Emergency Provider Family Medicine; PCP Family Medicine; Visit Provider Family Medicine
DX: I13.0 Hypertensive heart and chronic kidney disease with heart failure and stage 1 through stage 4 chronic kidney disease, or unspecified chronic kidney disease (principal); I50.23 Acute on chronic systolic (congestive) heart failure; I25.5 Ischemic cardiomyopathy; I50.84 End stage heart failure; I25.110 Atherosclerotic heart disease of native coronary artery with unstable angina pectoris; F41.0 Panic disorder [episodic paroxysmal anxiety]; F41.1 Generalized anxiety disorder; I95.1 Orthostatic hypotension; E11.51 Type 2 diabetes mellitus with diabetic peripheral angiopathy without gangrene; E11.22 Type 2 diabetes mellitus with diabetic chronic kidney disease; E11.40 Type 2 diabetes mellitus with diabetic neuropathy, unspecified; N18.30 Chronic kidney disease, stage 3 unspecified; G47.33 Obstructive sleep apnea (adult) (pediatric); Z79.84 Long term (current) use of oral hypoglycemic drugs; Z79.4 Long term (current) use of insulin; Z95.5 Presence of coronary angioplasty implant and graft; Z89.412 Acquired absence of left great toe; Z89.422 Acquired absence of other left toe(s); I25.2 Old myocardial infarction; Z98.84 Bariatric surgery status
CPT/HCPCS: 36415; 51798; 71045; 71046; 80048; 80053; 82803; 82962; 83605; 83735; 83880; 84484; 85025; 85379; 86140; 93005; 93926; 99284; 99285; A9153; A9270; J1650; J1815; J1938; J7050

== ENCOUNTER 2025-04-21 13:40 | Outpatient (CLI) | payer MEDICARE, SELFPAY | END 2025-04-21 13:41 | disposition home or self-care (01) | LOC: AMB 04-23 10:36 | PROVIDERS: PCP Family Medicine; Visit Provider Family Medicine | DX: R06.09 Other forms of dyspnea (principal) | CPT/HCPCS: A0425; A0427 ==

== ENCOUNTER 2025-05-10 12:42 | Outpatient (CLI) | payer MEDICARE, SELFPAY | END 2025-05-10 12:43 | disposition home or self-care (01) | LOC: AMB 05-24 10:04 | PROVIDERS: PCP Family Medicine; Visit Provider Family Medicine | DX: R06.09 Other forms of dyspnea (principal); R07.89 Other chest pain | CPT/HCPCS: A0425; A0427 ==